=== PATIENT | male | born 1950 | race Caucasian/White ===

== ENCOUNTER 2016-10-26 10:11 | Inpatient (IN) | payer BC, OTHER ==
[2016-10-26] MEDS ORDERED: ONDANSETRON 4 MG/2 ML VIAL IVP STA (10:31)
[2016-10-26] MEDS ORDERED: MORPHINE SULFATE 4 MG/ML SYRINGE IV STA (10:31)
[2016-10-26] MEDS ORDERED: SODIUM CHLORIDE 0.9% 500 ML IV STA (10:31)
[2016-10-26] MEDS ORDERED: DILTIAZEM 5 MG/ML 25 ML VIAL IV STA (10:33)
[2016-10-26] MEDS: DILTIAZEM 5 MG/ML 5 ML VIAL IVP STA ×2 (10:34→10:51)
[2016-10-26] MEDS ORDERED: methylPREDNISolone SOD SUCCI 125 MG/2 ML VIAL IV STA (10:35)
[2016-10-26 11:00] LABS: Basophils % (A) 0 %; CH 33.1; CHCM 30.9; Eosinophils # (A) 0.1 k/uL (0-0.7); Eosinophils % (A) 1 %; HCT 48.6 % (39.0-53.0); HDW 2.35; HGB 15.3 gm/dL (13.0-17.5); Hypochromasia Slight; Luc # (Auto) 0.26; Luc % (Auto) 2; Lymphocytes # (A) 1.3 k/uL (1.0-4.8); Lymphocytes % (A) 11 %; MCHC 31.6 g/dL (31.0-37.0); MCV 107.7 fL (80.0-100.0); Macrocytosis Moderate; Mean Platelet Volume 7.2; Monocytes # (A) 1.2 k/uL (0-1.0); Monocytes % (A) 10 %; Neutrophils # (A) 9.7 k/uL (1.3-7.7); Neutrophils % (A) 77 %; RBC 4.52 m/uL (4.30-5.90); RDW 13.1 % (11.5-15.5); WBC 12.6 k/uL (3.8-10.6); WBC (Perox) 12.59
[2016-10-26] MEDS ORDERED: IPRATROPIUM 0.5 MG/2.5 ML NEBU INHALATION STA (11:01)
[2016-10-26 11:11] LABS: ALT 38 U/L (21-72); AST 20 U/L (17-59); Alkaline Phosphatase 102 U/L (38-126); Blood Urea Nitrogen 8 mg/dL (9-20); Chloride 92 mmol/L (98-107); Glucose 131 mg/dL (74-99); Non-African American GFR(MDRD) >60 (>60 ml/min/1.73 sqM); Potassium 4.5 mmol/L (3.5-5.1); Sodium 142 mmol/L (137-145); Total Bilirubin 0.9 mg/dL (0.2-1.3); Total Protein 6.4 g/dL (6.3-8.2)
[2016-10-26 11:17] LABS: Partial Thromboplastin Time 24.8 sec (22.0-30.0); Prothrombin Time 10.2 sec (9.0-12.0)
[2016-10-26 11:18] LABS: Anion Gap 9 mmol/L
[2016-10-26 11:20] LABS: Carbon Dioxide 41 mmol/L (22-30)
[2016-10-26] MEDS ORDERED: DILTIAZEM 125 MG in SODIUM CHLORIDE 0.9% 100 ML IV ONE (11:25)
[2016-10-26 11:44] LABS: Troponin I 0.061 ng/mL (0.000-0.034)
--- NOTE | 2016-10-26 11:47 | XR ---
EXAMINATION TYPE: XR chest 1V DATE OF EXAM: 10/26/2016 11:35 AM COMPARISON: 10/07/2013 HISTORY: 56-year-old male with chest pain and dyspnea TECHNIQUE: Single frontal view of the chest is obtained. FINDINGS: Heart is borderline enlarged. Mild diffuse interstitial prominence. No significant pleural effusion s een. No yasmeen consolidation. IMPRESSION: Borderline heart size and diffuse interstitial prominence. Correlate for possible etiologies includin g bronchitis, chronic asthma, or mild pulmonary vascular congestion.
[2016-10-26] MEDS ORDERED: SUCCINYLCHOLINE CHLORIDE VIAL 200 MG/10 ML VIAL IV STA (12:00)
[2016-10-26] MEDS ORDERED: ETOMIDATE 2 MG/ML 10 ML VIAL IVP STA (12:01)
[2016-10-26] MEDS ORDERED: CISATRACURIUM 2 MG/ML 5 ML VIAL IV ONE (12:04)
[2016-10-26] MEDS ORDERED: ACETAMINOPHEN TAB 325 MG TAB PO PRN (12:05)
[2016-10-26] MEDS ORDERED: NALOXONE 0.4 MG/ML 1 ML VIAL IV PRN ×2 (12:05→14:46)
--- NOTE | 2016-10-26 12:05 | ED ---
SOB HPI - General Chief Complaint: Shortness of Breath Stated Complaint: chest pain Time Seen by Provider: 10/26/16 10:14 Source: EMS Mode of arrival: EMS Limitations: no limitations - History of Present Illness Initial Comments: Has a history of severe COPD he is oxygen dependent oxygen was started few days ago and EMS noticed that his O2 sat was 83% at home has smoked for greater than 50 years, he is barely awake or any fall asleep while talking to us shortness of breath he is quite severe and he also EMS give us headaches of that his heart rate was 172 this morning when they picked him up and he had a chest pain chest pain was taking care for the morphine on arrival heart rate is still 172 and 7H A. fib/flutter, Cardizem mom 20 mg IV was given with the infusion 10 mg per hour infusion. Review of system is are not available from him at this point - Related Data Home Medications Medication Instructions Recorded Confirmed No Known Home Medications [No 10/26/16 10/26/16 Known Home Medications] Allergies Allergy/AdvReac Type Severity Reaction Status Date / Time No Known Allergies Allergy Verified 10/26/16 10:42 Review of Systems ROS Statement: Those systems with pertinent positive or pertinent negative responses have been documented in the HPI. ROS Other: All systems not noted in ROS Statement are negative. Past Medical History Past Medical History: COPD History of Any Multi-Drug Resistant Organisms: None Reported Additional Past Surgical History / Comment(s): right eye Past Psychological History: No Psychological Hx Reported Smoking Status: Current every day smoker Past Alcohol Use History: Occasional Past Drug Use History: None Reported General Exam - General Exam Comments Initial Comments: General: The patient is barely awake, is warranted sleep talking to you. Skin: Skin is warm and dry and no rashes or lesions are noted. Eye: Pupils are equal, round and reactive to light, extra-ocular movements are intact; there is normal conjunctiva bilaterally. Ears, nose, mouth and throat: There are moist mucous membranes and no oral lesions. Neck: The neck is supple, there is no tenderness Cardiovascular: There is a regular rate and rhythm. No murmur, rub or gallop is appreciated. Notice severe tachycardia Respiratory: To auscultation bilateral, exam compatible with a severe COPD Gastrointestinal: Soft, non-distended, non-tender abdomen without masses or organomegaly noted. There is no rebound or guarding present. Bowel sounds are unremarkable. Back: There is no tenderness to palpation in the midline. There is no obvious deformity. Musculoskeletal: Normal ROM, no tenderness, There is no pedal edema. There is no calf tenderness or swelling. No cords were appreciated. Neurological: CN II-XII intact, Cranial nerves III through XII are intact. There are no obvious motor or sensory deficits. Coordination appears grossly intact. Speech is normal. Psychiatric: Cooperative, appropriate mood & affect, normal judgment. Limitations: no limitations Course Vital Signs 10/26/16 10/26/16 10:15 10:31 Temperature 98.8 F Pulse Rate 170 H 170 H Respiratory 16 16 Rate Blood Pressure 126/83 128/82 O2 Sat by Pulse 83 L 92 L Oximetry EKG is atrial flutter at a rate of 172 FL interval is, QRS duration is 82 QT/ QTc is 288/487 of this EKG he reveal a very fast heart rate, didn't notice any ST elevation or ST depression in this EKG Medical Decision Making - Lab Data Result diagrams: 10/26/16 10:15 10/26/16 10:15 Lab Results 10/26/16 10/26/16 10/26/16 Range/Units 10:15 10:15 10:15 WBC 12.6 H (3.8-10.6) k/uL RBC 4.52 (4.30-5.90) m/uL Hgb 15.3 (13.0-17.5) gm/dL Hct 48.6 (39.0-53.0) % MCV 107.7 H (80.0-100.0) fL MCH 34.0 (25.0-35.0) pg MCHC 31.6 (31.0-37.0) g/dL RDW 13.1 (11.5-15.5) % Plt Count 269 (150-450) k/uL Neutrophils % 77 % Lymphocytes % 11 % Monocytes % 10 % Eosinophils % 1 % Basophils % 0 % Neutrophils # 9.7 H (1.3-7.7) k/uL Lymphocytes # 1.3 (1.0-4.8) k/uL Monocytes # 1.2 H (0-1.0) k/uL Eosinophils # 0.1 (0-0.7) k/uL Basophils # 0.0 (0-0.2) k/uL Hypochromasia Slight Macrocytosis Moderate PT (9.0-12.0) sec INR (<1.1) APTT (22.0-30.0) sec D-Dimer (<0.60) mg/L FEU Sodium 142 (137-145) mmol/L Potassium 4.5 (3.5-5.1) mmol/L Chloride 92 L (98-107) mmol/L Carbon Dioxide 41 H* (22-30) mmol/L Anion Gap 9 mmol/L BUN 8 L (9-20) mg/dL Creatinine 0.73 (0.66-1.25) mg/dL Est GFR (MDRD) Af Amer >60 (>60 ml/min/1.73 sqM) Est GFR (MDRD) Non-Af >60 (>60 ml/min/1.73 sqM) Glucose 131 H (74-99) mg/dL Calcium 9.0 (8.4-10.2) mg/dL Magnesium 2.0 (1.6-2.3) mg/dL Total Bilirubin 0.9 (0.2-1.3) mg/dL AST 20 (17-59) U/L ALT 38 (21-72) U/L Alkaline Phosphatase 102 (38-126) U/L Total Creatine Kinase 21 L (55-170) U/L CK-MB (CK-2) 1.0 (0.0-2.4) ng/mL CK-MB (CK-2) Rel Index 4.8 Troponin I 0.061 H* (0.000-0.034) ng/mL Total Protein 6.4 (6.3-8.2) g/dL Albumin 3.6 (3.5-5.0) g/dL 10/26/16 Range/Units 10:15 WBC (3.8-10.6) k/uL RBC (4.30-5.90) m/uL Hgb (13.0-17.5) gm/dL Hct (39.0-53.0) % MCV (80.0-100.0) fL MCH (25.0-35.0) pg MCHC (31.0-37.0) g/dL RDW (11.5-15.5) % Plt Count (150-450) k/uL Neutrophils % % Lymphocytes % % Monocytes % % Eosinophils % % Basophils % % Neutrophils # (1.3-7.7) k/uL Lymphocytes # (1.0-4.8) k/uL Monocytes # (0-1.0) k/uL Eosinophils # (0-0.7) k/uL Basophils # (0-0.2) k/uL Hypochromasia Macrocytosis PT 10.2 (9.0-12.0) sec INR 1.0 (<1.1) APTT 24.8 (22.0-30.0) sec D-Dimer 0.75 H (<0.60) mg/L FEU Sodium (137-145) mmol/L Potassium (3.5-5.1) mmol/L Chloride (98-107) mmol/L Carbon Dioxide (22-30) mmol/L Anion Gap mmol/L BUN (9-20) mg/dL Creatinine (0.66-1.25) mg/dL Est GFR (MDRD) Af Amer (>60 ml/min/1.73 sqM) Est GFR (MDRD) Non-Af (>60 ml/min/1.73 sqM) Glucose (74-99) mg/dL Calcium (8.4-10.2) mg/dL Magnesium (1.6-2.3) mg/dL Total Bilirubin (0.2-1.3) mg/dL AST (17-59) U/L ALT (21-72) U/L Alkaline Phosphatase (38-126) U/L Total Creatine Kinase (55-170) U/L CK-MB (CK-2) (0.0-2.4) ng/mL CK-MB (CK-2) Rel Index Troponin I (0.000-0.034) ng/mL Total Protein (6.3-8.2) g/dL Albumin (3.5-5.0) g/dL Critical Care Time Total Critical Care Time: 60 Critical Care Time: Patient came in with a heart rate of 170 at this point we gave him a Cardizem 20 mg IV bolus and 10 mg per hour infusion was started after that her ABGs were none ABGs revealed his pCO2 of 103 and he was barely awake and was crashing on the BiPAP RT recommended we do intubate him, after that intubation was done with the bilateral air exchange and Dr. Robina munguia, he happened to be in the ER patient was discussed with him he accepted the patient care in the ER and then her talk to Dr. Belle munguia he agreed and the same time orogastric tube was inserted, aspiration confirmed the tube in the right place and x-rays are ordered to confirm the T-wave in And orogastric tube confirmation Disposition Clinical Impression: Tachyarrhythmia, COPD, severe, Respiratory failure Disposition: ADMITTED IP TO THIS HOSP Condition: Poor
[2016-10-26] MEDS: PROPOFOL 500 MG in EMPTY BAG 1 BAG IV SCH ×4 (12:10→19:44)
--- NOTE | 2016-10-26 12:36 | XR ---
EXAMINATION TYPE: XR chest 1V portable DATE OF EXAM: 10/26/2016 12:19 PM Comparison: 10/26/2016, earlier today Clinical History: 66-year-old male status post intubation Findings: ET tube is satisfactory. NG tube courses below the diaphragm. The sidehole is just above the level of the GE junction. The tube could be advanced by approximately 7 cm further into the stomach. Left CVC tip at the lower SVC. Heart remains borderline enlarged. Diffuse interstitial prominence with somewhat more patchy left bas ilar opacity now noted. Impression: 1. Satisfactory ET tube. 2. NG tube sidehole just above the GE junction. The tube could be advanced by 7 cm further into the s tomach. 3. Borderline to mild cardiomegaly with continued diffuse interstitial prominence. Opacity is somewha t more confluent at the left base and could represent atelectasis or early developing pneumonia.
[2016-10-26 12:38] LABS: ABG HCO3 39 mmol/L (21-25); ABG PCO2 104 mmHg (35-45); ABG PO2 102 mmHg (83-108); ABG TCO2 42 mmol/L (19-24)
[2016-10-26 13:08] LABS: Glucose,Whole Blood 130 mg/dL (75-99)
[2016-10-26 13:18] LABS: Glucose,Whole Blood 132 mg/dL (75-99)
[2016-10-26] MEDS: SODIUM CHLORIDE 0.9% 1,000 ML IV STA ×2 (13:30→19:50)
--- NOTE | 2016-10-26 13:59 | P.CNPUL ---
History of Present Illness Consult date: 10/26/16 Reason for consult: COPD History of present illness: 66-year-old male patient with advanced COPD and history of chronic extensive smoking presented to the [facility] problem with respiratory failure. The patient apparently was doing poorly over the past few weeks. He was planning to see me in the office next week and meanwhile he was seeing his primary care physician. One point was noted to have a pulse ox of 83% and he was placed on home O2. The patient was getting progressively more short of breath and earlier this morning he was brought into the hospital through EMS for respiratory failure. In the ED he was briefly placed on a BiPAP which she failed and the patient was becoming more obtunded and agitated and short of breath and for that reason he was intubated and placed on a mechanical ventilator. Note that his blood gases while being on 100% nonrebreather showed a pH of 7.2 with a pCO2 of 104 and pO2 of 102. Note that at time of arrival the patient was also in a flutter with rapid ventricular response at the rate of 160. and he was started on Cardizem drip at the rate of 10 mg an hour after being given a bolus of 20 mg IV push. I was in the emergency department and I related this patient after he was intubated. Immediate was noted the patient's airway pressures were quite high while on the mechanical ventilator and his peak airway pressure was around 51 and static pressure of around 20. He was intubated by a #8 orotracheal tube. He was having copious loose after secretions and was requiring frequent suctioning. He was placed on assist control mode of ventilation at the rate of 20, tidal volume 400, peak flow 75, FiO2 of 100% and PEEP of 5. He is post intubation chest x-ray shows no evidence of any complications. No pneumonia. No pulmonary infiltrates. ET tube was in a good location. The patient was sedated with Diprivan. The patient was paralyzed with Nimbex. The patient was noted to be hypotensive postintubation he was given a bolus of 2 L of IV fluids which stabilized his blood pressure. He was started on bronchodilators and he was given [id number] bronchodilators with albuterol. The patient was also started on IV Solu-Medrol and he was given a bolus of 125 mg IV push in the emergency department. He'll be transferred to the intensive care unit. I was able to insert a triple-lumen catheter on this patient an outlying catheter is to follow. His white cell count is nonelevated. He is post intubation blood gases is still pending. No previous history of respiratory failure. No 70 charted asthma. No other medical history available at this point. He is obese. He is a smoker. He has features of obstructive sleep apnea clinically. From the cardiac standpoint, after arrival to the intensive care unit, the patient's rhythm converted into normal sinus rhythm. There was some early repolarization involving the inferior leads. No significant ST segment elevation. Post intubation blood gas showed a pH of 7.26 with a pCO2 of 72 and pO2 of 487. This was on 100% FiO2. FiO2 will be gradually weaned down to maintain a saturation above 92%. He did become hypotensive however and he is currently on 6 mics of levo fed for blood pressure support. Review of Systems ROS unobtainable: due to endotracheal tube Past Medical History Past Medical History: COPD Additional Past Medical History / Comment(s): Obesity, nicotine addiction, glucoma History of Any Multi-Drug Resistant Organisms: None Reported Additional Past Surgical History / Comment(s): right eye Past Psychological History: No Psychological Hx Reported Smoking Status: Current every day smoker Past Alcohol Use History: Occasional Past Drug Use History: None Reported Medications and Allergies Home Medications Medication Instructions Recorded Confirmed Type Latanoprost [Xalatan 0.005%] 1 drop BOTH EYES HS 10/26/16 10/26/16 History Allergies Allergy/AdvReac Type Severity Reaction Status Date / Time No Known Allergies Allergy Verified 10/26/16 10:42 Physical Exam Vitals: Vital Signs Temp Pulse Resp BP Pulse Ox 10/26/16 13:21 98 155 H 94/64 10/26/16 13:05 97 F L 152 H 20 70/50 100 10/26/16 12:45 152 H 20 70/50 98 10/26/16 12:15 152 H 82/52 95 Patient is intubated on a mechanical ventilator. The patient sedated with Diprivan ., Comfortable at this point and more synchronous with the mechanical ventilator.Head exam was generally normal. There was no scleral icterus or corneal arcus. Mucous membranes were moist. Neck is short and supple and there is no JVDs no goiter or neck masses. Patient has orogastric and orotracheal tube are both in good location. The patient also has a left subclavian triple- lumen catheter. Lung sounds are markedly diminished and there is elongation of the expiratory phase of breathing and diffuse extremity wheezes heard throughout the lung limon bilaterally.Cardiac exam revealed the PMI to be normally situated and sized. The rhythm was regular and no extrasystoles were noted during several minutes of auscultation. The cardiac rhythm is sinus and the patient is sinus. The first and second heart sounds were normal and physiologic splitting of the second heart sound was noted. There were no murmurs , rubs, clicks, or gallops.Abdominal exam revealed normal bowel sounds. The abdomen was soft, non-tender, and without masses, organomegaly, or appreciable enlargement of the abdominal aorta. My normal extremities. Neurologically the patient is sedated Results - Laboratory Findings CBC and BMP: 10/26/16 10:15 10/26/16 10:15 ABG ABG pH 7.20 (7.35-7.45) L* 10/26/16 10:38 ABG pCO2 104 mmHg (35-45) H* 10/26/16 10:38 ABG pO2 102 mmHg (83-108) 10/26/16 10:38 ABG O2 Saturation 95.0 % (94-97) 10/26/16 10:38 PT/INR, D-dimer PT 10.2 sec (9.0-12.0) 10/26/16 10:15 INR 1.0 (<1.1) 10/26/16 10:15 D-Dimer 0.75 mg/L FEU (<0.60) H 10/26/16 10:15 Abnormal lab findings: Abnormal Labs 10/26/16 10/26/16 13:04 13:15 POC Glucose (mg/dL) 130 H 132 H - Diagnostic Findings Chest x-ray: image reviewed Assessment and Plan Plan: Assessment 1 acute respiratory failure secondary to COPD exacerbation. The patient is in acute hypercapnic respiratory failure with significant respiratory acidosis the time of arrival, failed BiPAP therapy, subsequently intubated and placed on a mechanical ventilator. He remains quite bronchus spastic and wheezy with significant elevation of the peak airway pressures. He is currently sedated Diprivan. We will may continue paralysis of the patient is found to be asynchronous with a mechanical ventilator. 2 chronic hypoxic respiratory failure secondary to COPD. 3 shortness of breath and respiratory failure secondary to above 4 a flutter with rapid ventricular response, converted to normal sinus rhythm 5 minimal troponin leak with troponin level of 0.06 6 obesity 7 nicotine addiction Plan The patient will be kept sedated Diprivan and we'll may need to paralyze him and synchrony with mechanical ventilator becomes an issue. Currently is on 35 mics of the prevent for now. He is on assist control mode at the rate of 20, tidal volume of 400, PEEP of 5 and FiO2 is being gradually weaned down. The patient's blood gases were noted. We'll obtain sputum Gram stain and culture. We'll obtain blood culture. We'll put the patient on DuoNeb the restroom is every 4 hours [id number]. We'll put the patient Pulmicort and 5 mg overestimates twice a day. Empiric antibiotic coverage with Levaquin. IV Solu Medrol 60 every 6 hours. Continue fluid resuscitation with normal saline today to have 150 mL an hour and wean off the pressors as tolerated. Lovenox for DVT prophylaxis. Monitor cardiac enzymes. Echocardiogram in a.m. IV Protonix for GI prophylaxis. We'll continue to follow. Condition is critical. Triple- lumen catheter and arterial line were also inserted. We'll follow.
[2016-10-26 14:01] LABS: ABG PH 7.26 (7.35-7.45)
[2016-10-26 14:02] LABS: ABG Base Excess 4.2 mmol/L; ABG HCO3 31 mmol/L (21-25); ABG PCO2 72 mmHg (35-45); ABG PO2 >400 mmHg (83-108); ABG TCO2 33 mmol/L (19-24)
[2016-10-26] MEDS: CISATRACURIUM 200 MG in SODIUM CHLORIDE 0.9% 180 ML IV SCH (14:16)
[2016-10-26] MEDS ORDERED: SODIUM CHLORIDE 0.9% 500 ML IV ONE (15:00)
[2016-10-26 15:32] LABS: Creatine Kinase MB 0.9 ng/mL (0.0-2.4)
[2016-10-26] MEDS: PANTOPRAZOLE 40 MG/10 ML VIAL IVP SCH (15:32)
[2016-10-26] MEDS: LEVOFLOXACIN 500MG-D5W PMX 500 MG in DEXTROSE/WATER 1 100ML.BAG IVPB SCH (15:33)
[2016-10-26] MEDS: IPRATROPIUM-ALBUTEROL 3 ML NEB INHALATION PRN ×2 (15:37→19:34)
[2016-10-26 16:23] LABS: Appearance,Urine Cloudy (Clear); Bilirubin,Urine 1+ (Negative); Glucose,Urine (UA) Negative (Negative); Ketones,Urine Trace (Negative); Leukocyte Esterase,Urine Trace (Negative); Mucus,Urine Many /hpf; Nitrite,Urine Negative (Negative); Particle Count 17786; Protein,Urine 2+ (Negative); Specific Gravity,Urine 1.026 (1.001-1.035); UA Billing (MACRO vs. MICRO) MICRO; WBC,Urine 5 /hpf (0-5)
[2016-10-26] MEDS ORDERED: SODIUM CHLORIDE 0.9% 1,000 ML IV ONE (17:17)
--- NOTE | 2016-10-26 17:47 | HP ---
DATE OF ADMISSION: 10/26/2016 The patient is a 66 -year-old gentleman with history of extensive smoking history, came in with respiratory distress, found to have ( ). The patient's clinical status went down pretty quickly and the patient was subsequently intubated and the patient was quite a bit wheezing and bronchospastic. Patient went into atrial fibrillation and atrial flutter. The patient was subsequently started on Cardizem drip and Cardizem was ordered and patient apparently has very high peak airway pressures consistent with severe bronchospasm. Patient was started on assist-control ventilation with PEEP of 5, FiO2 of 100% to taper it down. Tidal volume of 2.5. Chest examination, chest CT did not show any pneumonic infiltrate. Patient apparently does not use any oxygen at home. Patient has an extensive smoking history. He does not take much of any medications at home. Patient when seen, pCO2 of 100 and ( ) sources secondary to chronic obstructive pulmonary disease exacerbation. Review of systems unable to obtain due to clinical condition. Past medical history is significant for obesity, ( ) COPD. Patient presently smokes. Alcohol abuse history and drug abuse history unknown at this time. FAMILY HISTORY: Unknown. Home medications include: Latanoprost. No known drug allergies. PHYSICAL EXAMINATION: VITAL SIGNS: Temperature is 97.0, pulse 98, respiratory rate of 20. The patient is breathing over the ventilator on assist control. ( ) 94/64. Saturating 100 percent on assist control ventilation. GENERAL: The patient is intubated, sedated, CHADS score of -2. RAST Score of -2. HEENT: Pupils are round and equally reacting to light. EOMI. No scleral icterus. No conjunctival pallor. Normocephalic, atraumatic. No pharyngeal erythema. No thyromegaly. CARDIOVASCULAR: S1 and S2 present. No murmurs, rubs, or gallops. ABDOMEN: Soft, nontender, nondistended, normoactive bowel sounds. No palpable organomegaly. MUSCULOSKELETAL: No joint swelling or deformity. EXTREMITIES: No cyanosis, clubbing, or pedal edema. NEUROLOGICAL: Does not appear to have any focal neurological deficits, RAST score of 02 as mentioned earlier. Although neurological exam is significantly limited because of his intubated state. LUNGS: Bilateral wheezing. Patient has mechanical ventilator sounds. Significant wheezing bilaterally. No crackles are appreciated. SKIN: No rashes. LABORATORY DATA: CBC, CMP are abnormal for elevated bicarbonate level of 41, leukocytosis. ASSESSMENT AND PLAN: 1. Respiratory failure requiring intubation. 2. The patient has acute hypercapnic respiratory failure and respiratory ( ) secondary to chronic obstructive pulmonary disease. The patient on systemic steroids and inhalation treatments. The patient to continue with ( ) bronchitis. 3. Respiratory acidosis. 4. Minimally elevated troponin secondary to hypoxemia. 5. Atrial fibrillation, rapid ventricular rate. Echocardiogram. Patient will be continued on Cardizem drip. 6. Nicotine dependence. 7. Obesity. MTDD
--- NOTE | 2016-10-26 18:00 | PCN ---
DATE OF PROCEDURE: Insertion of a triple-lumen catheter. PREOPERATIVE DIAGNOSIS: Respiratory failure. POSTOPERATIVE DIAGNOSIS: Respiratory failure. Site of insertion is left subclavian vein. TRIPLE LUMEN CATHETER PLACEMENT Indication: Hemodynamic monitoring/Intravenous access. A time-out was completed verifying correct patient, procedure, site, positioning, and implant(s) or special equipment if applicable. The patient was placed in a dependent position appropriate for triple lumen catheter placement based on the vein to be cannulated. The patient's left shoulder was prepped and draped in sterile fashion. 1% Lidocaine was used to anesthetize the surrounding skin area. A triple lumen 9F Cordis catheter was introduced into the subclavian vein using Seldinger technique. The catheter was threaded smoothly over the guide wire and appropriate blood return was obtained. Each lumen of the catheter was evacuated of air and flushed with sterile saline. The catheter was then sutured in place to the skin and a sterile dressing applied. Perfusion to the extremity distal to the point of catheter insertion was checked and found to be adequate.
--- NOTE | 2016-10-26 18:02 | PCN ---
DATE OF PROCEDURE: SECOND PROCEDURE: Insertion of Arterial line catheter. PREOPERATIVE DIAGNOSIS: Respiratory failure. POSTOPERATIVE DIAGNOSIS: Respiratory failure. Site of insertion: Left radial artery. ARTERIAL LINE PLACEMENT Indication: Hemodynamic monitoring. A time-out was completed verifying correct patient, procedure, site, positioning, and implant(s) or special equipment if applicable. Rojas's test was performed to ensure adequate perfusion. The patient's left wrist was prepped and draped in sterile fashion. 1% Lidocaine was used to anesthetize the area. An 18G Arrow arterial line was introduced into the radial artery. The catheter was threaded over the guide wire and the needle was removed with appropriate pulsatile blood return. Blood loss was minimal. The catheter was then sutured in place to the skin and a sterile dressing applied. Perfusion to the extremity distal to the point of catheter insertion was checked and found to be adequate. The patient tolerated the procedure well and there were no complications. No bedside complications or bleeding.
[2016-10-26] MEDS: methylPREDNISolone SOD SUCCI 125 MG/2 ML VIAL IV SCH (18:37)
[2016-10-26] MEDS: BUDESONIDE 0.5 MG/2 ML NEBU INHALATION SCH (19:34)
[2016-10-26] MEDS: NOREPINEPHRINE 16 MG in SODIUM CHLORIDE 0.9% 250 ML IV SCH (20:00)
[2016-10-26] MEDS ORDERED: FUROSEMIDE 10 MG/ML 4 ML VIAL IV STA (20:31)
[2016-10-26] MEDS: CHLORHEXIDINE GLUCONATE 15 ML CUP MUCOUS MEM SCH (20:41)
[2016-10-27] MEDS: methylPREDNISolone SOD SUCCI 125 MG/2 ML VIAL IV SCH ×4 (00:29→17:36)
[2016-10-27] MEDS: PROPOFOL 500 MG in EMPTY BAG 1 BAG IV SCH ×11 (01:45→22:11)
[2016-10-27 04:12] LABS: Basophils % (A) 0 %; CH 33.1; CHCM 30.9; Eosinophils # (A) 0.1 k/uL (0-0.7); Eosinophils % (A) 0 %; HDW 2.41; HGB 13.4 gm/dL (13.0-17.5); Hypochromasia Slight; Luc # (Auto) 0.06; Luc % (Auto) 1; Lymphocytes # (A) 0.6 k/uL (1.0-4.8); Lymphocytes % (A) 5 %; MCH 32.7 pg (25.0-35.0); MCHC 30.3 g/dL (31.0-37.0); MCV 107.7 fL (80.0-100.0); Macrocytosis Moderate; Mean Platelet Volume 7.9; Monocytes # (A) 0.6 k/uL (0-1.0); Monocytes % (A) 5 %; Neutrophils % (A) 89 %; RBC 4.09 m/uL (4.30-5.90); RDW 13.6 % (11.5-15.5); WBC 12.3 k/uL (3.8-10.6); WBC (Perox) 12.75
[2016-10-27 04:22] LABS: ALT 33 U/L (21-72); AST 13 U/L (17-59); Alkaline Phosphatase 71 U/L (38-126); Anion Gap 6 mmol/L; Blood Urea Nitrogen 18 mg/dL (9-20); Calcium 7.8 mg/dL (8.4-10.2); Carbon Dioxide 30 mmol/L (22-30); Chloride 104 mmol/L (98-107); Glucose 168 mg/dL (74-99); Magnesium 1.7 mg/dL (1.6-2.3); Non-African American GFR(MDRD) >60 (>60 ml/min/1.73 sqM); Potassium 5.2 mmol/L (3.5-5.1); Sodium 140 mmol/L (137-145); Total Bilirubin 0.6 mg/dL (0.2-1.3); Total Protein 4.9 g/dL (6.3-8.2)
[2016-10-27 05:06] LABS: ABG HCO3 29 mmol/L (21-25); ABG PCO2 57 mmHg (35-45); ABG PH 7.33 (7.35-7.45); ABG PO2 91 mmHg (83-108); ABG TCO2 31 mmol/L (19-24)
[2016-10-27 05:07] LABS: ABG Base Excess 3.6 mmol/L
[2016-10-27] MEDS ORDERED: Magnesium Replacement Protocol 1 EACH MISC MISCELLANE PRN (05:41)
[2016-10-27] MEDS: MAGNESIUM SULFATE-D5W PMX 1 GM in DEXTROSE/WATER 1 100ML.BAG IVPB SCH ×2 (05:57→07:38)
[2016-10-27] MEDS: IPRATROPIUM-ALBUTEROL 3 ML NEB INHALATION PRN ×2 (07:37→11:04)
[2016-10-27] MEDS: BUDESONIDE 0.5 MG/2 ML NEBU INHALATION SCH ×2 (07:38→20:00)
--- NOTE | 2016-10-27 07:38 | XR ---
EXAMINATION TYPE: XR chest 1V portable DATE OF EXAM: 10/27/2016 6:29 AM Comparison: 10/26/2016 Clinical History: 66 year-old male tube placement Findings: Heart remains borderline to mildly enlarged. Aorta within normal limits. Pulmonary vasculature and in terstitium remains prominent but improved from prior. The left basilar patchy opacity seen previously has also improved. Left subclavian CVC tip at the mid SVC. ET tube is satisfactory. NG tube courses below the diaphragm. NG tube sidehole is at the level of the GE junction now. Impression: Interstitial densities show interval improvement and the patchy left basilar infiltrate has largely r esolved. Possible improving CHF. There may be residual mild pulmonary vascular congestion.
[2016-10-27] MEDS: PANTOPRAZOLE 40 MG/10 ML VIAL IVP SCH (08:50)
[2016-10-27] MEDS: ENOXAPARIN 40 MG/0.4 ML SYRINGE SQ SCH (08:50)
[2016-10-27] MEDS: CHLORHEXIDINE GLUCONATE 15 ML CUP MUCOUS MEM SCH ×2 (08:50→20:15)
--- NOTE | 2016-10-27 13:41 | P.PN ---
Subjective 66-year-old male patient with advanced COPD and history of chronic extensive smoking presented to the [facility] problem with respiratory failure. The patient apparently was doing poorly over the past few weeks. He was planning to see me in the office next week and meanwhile he was seeing his primary care physician. One point was noted to have a pulse ox of 83% and he was placed on home O2. The patient was getting progressively more short of breath and earlier this morning he was brought into the hospital through EMS for respiratory failure. In the ED he was briefly placed on a BiPAP which she failed and the patient was becoming more obtunded and agitated and short of breath and for that reason he was intubated and placed on a mechanical ventilator. Note that his blood gases while being on 100% nonrebreather showed a pH of 7.2 with a pCO2 of 104 and pO2 of 102. Note that at time of arrival the patient was also in a flutter with rapid ventricular response at the rate of 160. and he was started on Cardizem drip at the rate of 10 mg an hour after being given a bolus of 20 mg IV push. I was in the emergency department and I related this patient after he was intubated. Immediate was noted the patient's airway pressures were quite high while on the mechanical ventilator and his peak airway pressure was around 51 and static pressure of around 20. He was intubated by a #8 orotracheal tube. He was having copious loose after secretions and was requiring frequent suctioning. He was placed on assist control mode of ventilation at the rate of 20, tidal volume 400, peak flow 75, FiO2 of 100% and PEEP of 5. He is post intubation chest x-ray shows no evidence of any complications. No pneumonia. No pulmonary infiltrates. ET tube was in a good location. The patient was sedated with Diprivan. The patient was paralyzed with Nimbex. The patient was noted to be hypotensive postintubation he was given a bolus of 2 L of IV fluids which stabilized his blood pressure. He was started on bronchodilators and he was given [id number] bronchodilators with albuterol. The patient was also started on IV Solu-Medrol and he was given a bolus of 125 mg IV push in the emergency department. He'll be transferred to the intensive care unit. I was able to insert a triple-lumen catheter on this patient an outlying catheter is to follow. His white cell count is nonelevated. He is post intubation blood gases is still pending. No previous history of respiratory failure. No 72 charted asthma. No other medical history available at this point. He is obese. He is a smoker. He has features of obstructive sleep apnea clinically. From the cardiac standpoint, after arrival to the intensive care unit, the patient's rhythm converted into normal sinus rhythm. There was some early repolarization involving the inferior leads. No significant ST segment elevation. Post intubation blood gas showed a pH of 7.26 with a pCO2 of 72 and pO2 of 487. This was on 100% FiO2. FiO2 will be gradually weaned down to maintain a saturation above 92%. He did become hypotensive however and he is currently on 6 mics of levo fed for blood pressure support. On 10/27/2016 the patient is being seen in follow-up. The patient remains intubated on mechanical ventilator. The patient remains sedated with Diprivan. No paralytics was utilized. The patient and assist control mode at the rate of 18, tidal volume 400, FiO2 of 50% and a PEEP of 5. Peak airway pressures around 34 with acetic acid pressure of 17. Also PEEP is at 6. The peak flow is at 70. The I:E ratio is 1 to 4. The chest x-ray remains essentially stable and the ET tube is in a good location. The blood gas showed a pH of 7.33 with a pCO2 of 57 and pO2 of 91. On examination the patient is still having significant amount of looseness for secretions being suctioned from the endotracheal tube. The patient is also having significant extremity wheezes on examination. Hemodynamically, the patient was on pressors overnight as the patient became hypotensive postintubation. He was started on fluids and norepinephrine infusion which was discontinued this morning. His cardiac rhythm remains sinus and there is no evidence of any throughout the rhythm for now. Cardiac enzymes were minimally elevated with troponins of 0.05 max. Objective - Vital Signs Vital signs: Vital Signs Temp 98.3 F 10/27/16 12:00 Pulse 82 10/27/16 12:00 Resp 18 10/27/16 12:00 BP 96/66 10/27/16 12:00 Pulse Ox 93 L 10/27/16 12:00 Intake & Output 10/26/16 10/27/16 10/27/16 18:59 06:59 18:59 Intake Total 1694.955 2558.809 1007.200 Output Total 115 1475 258 Balance 1687.750 -2.191 749.200 Weight 91.6 kg 94.2 kg Intake: IV 1700 1200 700 Sodium Chloride 0.9% 1, 200 1200 700 000 ml @ 100 mls/hr IV . Q10H STA Rx#:[id number] Sodium Chloride 0.9% 500 1500 ml @ 999 mls/hr IV .Q31M STA Rx#:[id number] Intake, IV Titration 102.750 272.809 307.200 Amount Diltiazem 125 mg In 24.333 Sodium Chloride 0.9% 100 ml @ 10 MG/HR 10 mls/hr IV .[id number] ONE Rx#: [id number] Magnesium Sulfate-D5w Pmx 100 200 1 gm In Dextrose/Water 1 100ml.bag @ 100 mls/hr IVPB Q1H WADE Rx#: [id number] Norepinephrine 16 mg In 72.809 Sodium Chloride 0.9% 250 ml @ Titrate IV .Q0M WADE Rx#:[id number] Propofol 500 mg In Empty 78.417 100.000 107.200 Bag 1 bag @ Titrate IV . Q0M WADE Rx#:[id number] Output: Urine 115 1475 258 Uretheral (Green) 50 Other: Voiding Method Indwelling Catheter Indwelling Catheter Indwelling Catheter # Bowel Movements 0 0 ABP, PAP, CO, CI - Last Documented Arterial Blood Pressure 112/59 - Exam Patient is intubated on a mechanical ventilator. The patient sedated with Diprivan ., Comfortable at this point and more synchronous with the mechanical ventilator.Head exam was generally normal. There was no scleral icterus or corneal arcus. Mucous membranes were moist. Neck is short and supple and there is no JVDs no goiter or neck masses. Patient has orogastric and orotracheal tube are both in good location. The patient also has a left subclavian triple- lumen catheter. Lung sounds are markedly diminished and there is elongation of the expiratory phase of breathing and diffuse extremity wheezes heard throughout the lung limon bilaterally.Cardiac exam revealed the PMI to be normally situated and sized. The rhythm was regular and no extrasystoles were noted during several minutes of auscultation. The cardiac rhythm is sinus and the patient is sinus. The first and second heart sounds were normal and physiologic splitting of the second heart sound was noted. There were no murmurs , rubs, clicks, or gallops.Abdominal exam revealed normal bowel sounds. The abdomen was soft, non-tender, and without masses, organomegaly, or appreciable enlargement of the abdominal aorta. My normal extremities. Neurologically the patient is sedated - Labs CBC & Chem 7: 10/27/16 04:00 10/27/16 04:00 Labs: Abnormal Lab Results - Last 24 Hours (Table) 10/26/16 10/26/16 10/26/16 Range/Units 13:45 14:00 14:00 WBC (3.8-10.6) k/uL RBC (4.30-5.90) m/uL MCV (80.0-100.0) fL MCHC (31.0-37.0) g/dL Neutrophils # (1.3-7.7) k/uL Lymphocytes # (1.0-4.8) k/uL ABG pH 7.26 L (7.35-7.45) ABG pCO2 72 H* (35-45) mmHg ABG pO2 >400 H (83-108) mmHg ABG HCO3 31 H (21-25) mmol/L ABG Total CO2 33 H (19-24) mmol/L ABG O2 Saturation 100.0 H (94-97) % Potassium (3.5-5.1) mmol/L Glucose (74-99) mg/dL Calcium (8.4-10.2) mg/dL AST (17-59) U/L Total Creatine Kinase 28 L (55-170) U/L Troponin I 0.050 H* (0.000-0.034) ng/mL Total Protein (6.3-8.2) g/dL Albumin (3.5-5.0) g/dL Urine Protein (Negative) Urine Ketones (Negative) Urine Bilirubin (Negative) Ur Leukocyte Esterase (Negative) Hyaline Casts (0-2) /lpf Urine Mucus (None) /hpf 10/26/16 10/27/16 10/27/16 Range/Units 15:00 04:00 04:00 WBC 12.3 H (3.8-10.6) k/uL RBC 4.09 L (4.30-5.90) m/uL MCV 107.7 H (80.0-100.0) fL MCHC 30.3 L (31.0-37.0) g/dL Neutrophils # 11.0 H (1.3-7.7) k/uL Lymphocytes # 0.6 L (1.0-4.8) k/uL ABG pH (7.35-7.45) ABG pCO2 (35-45) mmHg ABG pO2 (83-108) mmHg ABG HCO3 (21-25) mmol/L ABG Total CO2 (19-24) mmol/L ABG O2 Saturation (94-97) % Potassium 5.2 H (3.5-5.1) mmol/L Glucose 168 H (74-99) mg/dL Calcium 7.8 L (8.4-10.2) mg/dL AST 13 L (17-59) U/L Total Creatine Kinase (55-170) U/L Troponin I (0.000-0.034) ng/mL Total Protein 4.9 L (6.3-8.2) g/dL Albumin 2.8 L (3.5-5.0) g/dL Urine Protein 2+ H (Negative) Urine Ketones Trace H (Negative) Urine Bilirubin 1+ H (Negative) Ur Leukocyte Esterase Trace H (Negative) Hyaline Casts 13 H (0-2) /lpf Urine Mucus Many H (None) /hpf 10/27/16 Range/Units 04:43 WBC (3.8-10.6) k/uL RBC (4.30-5.90) m/uL MCV (80.0-100.0) fL MCHC (31.0-37.0) g/dL Neutrophils # (1.3-7.7) k/uL Lymphocytes # (1.0-4.8) k/uL ABG pH 7.33 L (7.35-7.45) ABG pCO2 57 H (35-45) mmHg ABG pO2 (83-108) mmHg ABG HCO3 29 H (21-25) mmol/L ABG Total CO2 31 H (19-24) mmol/L ABG O2 Saturation (94-97) % Potassium (3.5-5.1) mmol/L Glucose (74-99) mg/dL Calcium (8.4-10.2) mg/dL AST (17-59) U/L Total Creatine Kinase (55-170) U/L Troponin I (0.000-0.034) ng/mL Total Protein (6.3-8.2) g/dL Albumin (3.5-5.0) g/dL Urine Protein (Negative) Urine Ketones (Negative) Urine Bilirubin (Negative) Ur Leukocyte Esterase (Negative) Hyaline Casts (0-2) /lpf Urine Mucus (None) /hpf Microbiology - Last 24 Hours (Table) 10/26/16 13:10 Gram Stain - Preliminary Sputum Sputum Culture - Preliminary Assessment and Plan Plan: Assessment 1 acute respiratory failure secondary to COPD exacerbation. The patient is in acute hypercapnic respiratory failure with significant respiratory acidosis the time of arrival, failed BiPAP therapy, subsequently intubated and placed on a mechanical ventilator. He remains quite bronchus spastic and wheezy with significant elevation of the peak airway pressures. He is currently sedated Diprivan. We will may continue paralysis of the patient is found to be asynchronous with a mechanical ventilator. On 10/27/2016, the patient is still on a mechanical ventilator. Improved compared to yesterday. Less bronchospastic and wheezy at the peak airway pressures remains quite elevated and the patient is still bronchospastic and wheezy and overall not ready for weaning or extubation yet. Chest x-ray remains free of any pneumonias or infiltrates. Hemodynamically improved and the patient is on no pressors at this point and is maintaining his own cardiac rhythm and blood pressure. 2 chronic hypoxic respiratory failure secondary to COPD. 3 shortness of breath and respiratory failure secondary to above 4 a flutter with rapid ventricular response, converted to normal sinus rhythm 5 minimal troponin leak with troponin level of 0.06 6 obesity 7 nicotine addiction Plan Keep the patient sedated for another 24 hours. Continue the broncho dilators, and steroids and empiric antibiotic coverage. The sputum Gram stain and culture patient yielded no microbial growth yet. The patient will be started on tube feeds and the patient will be given vitamin 1.5 at 10 mL an hour without attempts to advance the diet. We'll give be having this patient is sedation holiday and will consider cutting down sedation as long as the patient remains cigarettes with a mechanical ventilator. Monitor hemodynamics. Monitor blood pressure. DVT and GI prophylaxis. We'll continue to follow. Family was updated on his condition and have elected discussion with his and daughter the bedside. There is a critically care evaluation that was done and 35 minutes.
[2016-10-27] MEDS ORDERED: DILTIAZEM 5 MG/ML 5 ML VIAL IVP STA (14:05)
[2016-10-27] MEDS: CISATRACURIUM 200 MG in SODIUM CHLORIDE 0.9% 180 ML IV SCH (14:14)
[2016-10-27] MEDS: NOREPINEPHRINE 16 MG in SODIUM CHLORIDE 0.9% 250 ML IV SCH (14:18)
[2016-10-27] MEDS: DILTIAZEM 125 MG in SODIUM CHLORIDE 0.9% 100 ML IV SCH (15:30)
--- NOTE | 2016-10-27 15:31 | PN ---
Patient is a 66-year-old with extensive smoking history, came in with COPD exacerbation and patient is intubated at this point of time. Patient's wheezing did improve and patient is on propofol sedation and levofloxacin. REVIEW OF SYSTEMS: Unable to obtain due to his clinical condition. Medications were reviewed. PHYSICAL EXAMINATION: VITAL SIGNS: Temperature 98.3, pulse of 82, respiratory rate of 18, blood pressure 96/66, saturating at 93% on ventilator. Please refer to district fire chief dictation for further details of vent management settings. GENERAL: Patient is intubated, sedated, calm. RADS score of -2. NEUROLOGICAL: RADS score of -2. PULMONARY EXAM: Patient wheezing and bronchospasm appears to have improved. HEENT: Pupils are round and equally reacting to light. EOMI. No scleral icterus. No conjunctival pallor. Normocephalic, atraumatic. No pharyngeal erythema. No thyromegaly. CARDIOVASCULAR: Patients is still in atrial fibrillation, S1 and S2 present. No murmurs, rubs, or gallops are appreciated. ABDOMEN: Soft, nontender, nondistended, normoactive bowel sounds. No palpable organomegaly. MUSCULOSKELETAL: No joint swelling or deformity. EXTREMITIES: No cyanosis, clubbing, or pedal edema. SKIN: No rashes. LABORATORY DATA: CMP and BMP are abnormal for mildly elevated potassium of 5.2, which will be monitored. Patient is not on any medication that increases his potassium. ASSESSMENT AND PLAN: 1. Acute respiratory failure requiring intubation which is again secondary to acute hypercapnic respiratory failure secondary to chronic obstructive pulmonary disease exacerbation. Continue with systemic steroids, inhalational treatments and albuterol. 2. Respiratory acidosis secondary to assessment #1. 3. Atrial flutter. Echocardiogram was ordered. Patient is off Cardizem drip. 4. Nicotine dependence. 5. Obesity. PLAN: Continue with ventilator support, wean off as tolerated. Antibiotics, systemic steroids, inhalational treatments.
[2016-10-27] MEDS: LEVOFLOXACIN 500MG-D5W PMX 500 MG in DEXTROSE/WATER 1 100ML.BAG IVPB SCH (16:15)
[2016-10-27] MEDS: IPRATROPIUM 0.5 MG/2.5 ML NEBU INHALATION SCH ×3 (16:22→23:28)
[2016-10-27] MEDS: LEVALBUTEROL NEB (CONC) 1.25 MG/0.5 ML AMP INHALATION SCH ×3 (16:22→23:28)
[2016-10-27] MEDS ORDERED: DEXTROSE 5% IN WATER 100 ML with AMIODARONE 150 MG IV ONE (17:27)
[2016-10-27] MEDS: AMIODARONE 450 MG in DEXTROSE 5% IN WATER 250 ML IV SCH ×2 (18:17)
[2016-10-28] MEDS: PROPOFOL 500 MG in EMPTY BAG 1 BAG IV SCH ×13 (00:15→23:52)
[2016-10-28 00:16] LABS: Glucose,Whole Blood 154 mg/dL (75-99)
[2016-10-28] MEDS: methylPREDNISolone SOD SUCCI 125 MG/2 ML VIAL IV SCH ×5 (00:32→23:52)
[2016-10-28] MEDS: AMIODARONE 450 MG in DEXTROSE 5% IN WATER 250 ML IV SCH ×4 (03:13→20:09)
[2016-10-28] MEDS: HYDROmorphone 1 MG/ML 1 ML SYRINGE IVP PRN ×2 (03:15→23:58)
[2016-10-28] MEDS: LEVALBUTEROL NEB (CONC) 1.25 MG/0.5 ML AMP INHALATION SCH ×6 (03:20→23:05)
[2016-10-28] MEDS: IPRATROPIUM 0.5 MG/2.5 ML NEBU INHALATION SCH ×6 (03:20→23:05)
[2016-10-28 05:11] LABS: ABG Base Excess 2.5 mmol/L; ABG HCO3 29 mmol/L (21-25); ABG PCO2 61 mmHg (35-45); ABG PH 7.29 (7.35-7.45); ABG PO2 107 mmHg (83-108); ABG TCO2 30 mmol/L (19-24)
[2016-10-28 05:14] LABS: Basophils % (A) 0 %; CHCM 30.9; Eosinophils # (A) 0.1 k/uL (0-0.7); Eosinophils % (A) 0 %; HCT 44.9 % (39.0-53.0); HDW 2.45; HGB 13.7 gm/dL (13.0-17.5); Hypochromasia Slight; Luc # (Auto) 0.09; Luc % (Auto) 1; Lymphocytes # (A) 0.6 k/uL (1.0-4.8); Lymphocytes % (A) 4 %; MCH 32.7 pg (25.0-35.0); MCHC 30.4 g/dL (31.0-37.0); MCV 107.4 fL (80.0-100.0); Macrocytosis Moderate; Mean Platelet Volume 7.9; Monocytes # (A) 0.9 k/uL (0-1.0); Monocytes % (A) 6 %; Neutrophils # (A) 12.2 k/uL (1.3-7.7); Neutrophils % (A) 88 %; RBC 4.18 m/uL (4.30-5.90); RDW 13.7 % (11.5-15.5); WBC 13.8 k/uL (3.8-10.6); WBC (Perox) 13.33
[2016-10-28 05:27] LABS: Anion Gap 8 mmol/L; Blood Urea Nitrogen 28 mg/dL (9-20); Calcium 8.5 mg/dL (8.4-10.2); Carbon Dioxide 30 mmol/L (22-30); Chloride 102 mmol/L (98-107); Glucose 171 mg/dL (74-99); Magnesium 2.4 mg/dL (1.6-2.3); Non-African American GFR(MDRD) >60 (>60 ml/min/1.73 sqM); Phosphorous 3.8 mg/dL (2.5-4.5); Potassium 5.1 mmol/L (3.5-5.1); Sodium 140 mmol/L (137-145)
[2016-10-28] MEDS: INSULIN LISPRO (humaLOG) 300 UNIT/3 ML VIAL SQ SCH ×4 (06:31→23:55)
[2016-10-28 06:35] LABS: Glucose,Whole Blood 152 mg/dL (75-99)
[2016-10-28] MEDS: BUDESONIDE 0.5 MG/2 ML NEBU INHALATION SCH ×2 (07:15→19:33)
--- NOTE | 2016-10-28 08:33 | XR ---
EXAMINATION TYPE: XR chest 1V portable DATE OF EXAM: 10/28/2016 7:01 AM COMPARISON: Prior chest x-ray 27 October 2016 HISTORY: Intubated TECHNIQUE: Single frontal view of the chest is obtained. FINDINGS: Endotracheal tube, NG tube are present and are overlying appropriate positions. Distal tip of the NG tube is thought to be within the stomach, side-port may be near the gastroesophageal junct ion. There is no pneumothorax or sizable effusion. Some minimal patchy basilar density is present. He art appears borderline enlarged although patient is rotated. Pulmonary vascularity and gorge not signi ficantly changed. Left subclavian central venous catheter is present, tip is overlying the superior v shawnee cava. There are overlying cardiac leads. IMPRESSION: There may be basilar atelectasis, airspace, correlate for edema or pneumonia.
[2016-10-28] MEDS: PANTOPRAZOLE 40 MG/10 ML VIAL IVP SCH (08:50)
[2016-10-28] MEDS: ENOXAPARIN 40 MG/0.4 ML SYRINGE SQ SCH (08:50)
[2016-10-28] MEDS: CHLORHEXIDINE GLUCONATE 15 ML CUP MUCOUS MEM SCH ×2 (08:50→20:16)
[2016-10-28 08:57] LABS: Hemoglobin A1C 6.1 % (4.2-6.1)
[2016-10-28] MEDS: NOREPINEPHRINE 16 MG in SODIUM CHLORIDE 0.9% 250 ML IV SCH (08:58)
--- NOTE | 2016-10-28 09:45 | ECHOF ---
Referral Reason:atrial flutter MEASUREMENTS -------- HEIGHT: 175.3 cm WEIGHT: 101.2 kg BP: 103/66 IVSd: 1.3 cm (0.6 - 1.1) LVIDd: 3.6 cm (3.9 - 5.3) LVPWd: 1.3 cm (0.6 - 1.1) IVSs: 1.9 cm LVIDs: 1.9 cm LVPWs: 1.5 cm Ao Diam: 3.5 cm (2.0 - 3.7) AV Cusp: 1.8 cm (1.5 - 2.6) LA Diam: 3.2 cm (2.7 - 3.8) RAP: 20.00 mmHg RVSP: 25.02 mmHg FINDINGS -------- The rhythm appears to be atrial flutter. This was a technically difficult study with suboptimal views. There is borderline concentric left ventricular hypertrophy. Overall left ventricular systolic function is moderately impaired with, an EF between 35 - 40 %. The right ventricle is normal in size and function. The right ventricle is mildly enlarged. The left atrium is normal in size. The right atrium is normal in size. 1.5mg of Definity was utilized for enhancement of images The aortic valve is trileaflet, and appears structurally normal. No aortic stenosis or regurgitation. There is trace mitral regurgitation. Trace tricuspid regurgitation present. The right ventricular systolic pressure, as measured by Doppler, is 25.02mmHg. The pulmonic valve was not well visualized. The aortic root size is normal. The pericardium is normal. CONCLUSIONS -------- 1. The rhythm appears to be atrial flutter. 2. There is trace mitral regurgitation. 3. Trace tricuspid regurgitation present. 4. The right ventricular systolic pressure, as measured by Doppler, is 25.02mmHg. 5. The pulmonic valve was not well visualized. 6. The aortic root size is normal. 7. The pericardium is normal. 8. This was a technically difficult study with suboptimal views. 9. There is borderline concentric left ventricular hypertrophy. 10. Overall left ventricular systolic function is moderately impaired with, an EF between 35 - 40 %. 11. The right ventricle is normal in size and function. 12. The left atrium is normal in size. 13. The right atrium is normal in size. 14. 1.5mg of Definity was utilized for enhancement of images 15. The aortic valve is trileaflet, and appears structurally normal. No aortic stenosis or regurgitation. CHEST [employer] SUPERVISOR: Natty Cardona RDCS
[2016-10-28] MEDS ORDERED: SODIUM CHLORIDE 0.9% 500 ML IV ONE (10:03)
--- NOTE | 2016-10-28 11:44 | P.CRDCN ---
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 The patient was found to be in acute respiratory distress. He is known to have severe COPD. Initially the patient was put on BiPAP without any improvement. Subsequently he started becoming agitated and more hypoxic. At that point he was intubated and placed on ventilator. We get involved in the care of the patient because he went into an atrial flutter with RVR. Subsequently the patient was started on amiodarone IV and converted into normal sinus mechanism. Beside that the cardiac enzymes were checked and came in to be slightly abnormal. The EKG showed only barely repolarization. The family states that the patient did not have any symptoms of chest pain or chest discomfort. Currently the patient is in normal sinus mechanism with a controlled heart rate. He is on amiodarone IV. Hemodynamically, he seems to be requiring small dose of Levophed. He is in process to be weaned from the Levophed. I will keep the patient on amiodarone IV at this point in view of hemodynamic instability. Once he is hemodynamically stable and I will consider start him on calcium channel tom. Also I am going to start the patient on anticoagulation using Xarelto. An echocardiogram is in process to be performed. Also I will start the patient on aspirin and a statin in view of the abnormal cardiac enzymes. Past Medical History Past Medical History: COPD Additional Past Medical History / Comment(s): Obesity, nicotine addiction, glucoma History of Any Multi-Drug Resistant Organisms: None Reported Additional Past Surgical History / Comment(s): right eye Past Anesthesia/Blood Transfusion Reactions: No Reported Reaction Past Psychological History: No Psychological Hx Reported Smoking Status: Current every day smoker Past Alcohol Use History: Occasional Past Drug Use History: None Reported Medications and Allergies Home Medications Medication Instructions Recorded Confirmed Type Latanoprost [Xalatan 0.005%] 1 drop BOTH EYES HS 10/26/16 10/26/16 History Allergies Allergy/AdvReac Type Severity Reaction Status Date / Time No Known Allergies Allergy Verified 10/26/16 10:42 Physical Exam Vitals: Vital Signs Temp Pulse Resp BP Pulse Ox 10/28/16 11:34 63 10/28/16 11:00 98.4 F 65 18 92/66 96 10/28/16 10:45 66 17 92/66 96 10/28/16 10:30 65 18 96 10/28/16 10:15 68 18 96 10/28/16 10:00 68 17 78/70 95 10/28/16 09:45 119 H 18 78/70 95 10/28/16 09:30 113 H 17 101/73 95 10/28/16 09:15 119 H 18 101/73 95 10/28/16 09:00 125 H 17 101/73 96 10/28/16 08:45 98.3 F 119 H 20 101/73 96 10/28/16 08:30 110 H 18 104/77 96 10/28/16 08:15 133 H 18 104/77 96 10/28/16 08:00 133 H 0 L 104/77 96 10/28/16 07:45 132 H 18 104/77 97 10/28/16 07:41 132 H 10/28/16 07:30 132 H 18 98 10/28/16 07:17 101 H 10/28/16 07:15 131 H 18 98 10/28/16 07:00 132 H 18 94/72 96 10/28/16 06:45 130 H 18 96 10/28/16 06:30 132 H 18 93/64 96 10/28/16 06:15 131 H 18 96 10/28/16 06:00 132 H 18 93/64 96 10/28/16 05:45 132 H 18 95 10/28/16 05:30 132 H 18 95 10/28/16 05:15 107 H 18 95 10/28/16 05:00 132 H 18 87/67 95 10/28/16 04:45 132 H 18 96 10/28/16 04:30 131 H 18 96 10/28/16 04:15 131 H 18 96 10/28/16 04:00 98.5 F 133 H 18 90/70 96 10/28/16 03:45 132 H 18 97 10/28/16 03:30 133 H 18 97 10/28/16 03:22 132 H 10/28/16 03:15 133 H 18 96 10/28/16 03:11 132 H 10/28/16 03:00 132 H 18 96 01/16/17 02:45 133 H 18 91/65 97 10/28/16 02:30 133 H 18 96 10/28/16 02:15 134 H 18 96 10/28/16 02:00 134 H 18 96 10/28/16 01:45 134 H 18 100/71 95 10/28/16 01:30 134 H 18 97/70 95 10/28/16 01:15 135 H 18 97/70 94 L 10/28/16 01:00 135 H 18 97/70 95 10/28/16 00:45 136 H 18 97/70 94 L 10/28/16 00:30 136 H 18 99/77 94 L 10/28/16 00:15 136 H 18 95 10/28/16 00:00 97.7 F 137 H 18 96 10/27/16 23:45 136 H 18 99/77 97 10/27/16 23:30 136 H 18 97 10/27/16 23:19 135 H 10/27/16 23:15 135 H 18 96/68 96 10/27/16 23:00 135 H 18 96/68 95 10/27/16 22:45 136 H 18 96/68 95 10/27/16 22:30 136 H 18 95 10/27/16 22:15 137 H 18 96 10/27/16 22:00 139 H 18 96 10/27/16 21:45 139 H 18 101/70 95 10/27/16 21:30 140 H 18 94 L 10/27/16 21:15 140 H 21 95 10/27/16 21:00 135 H 25 H 98 10/27/16 20:45 136 H 18 100/69 95 10/27/16 20:30 136 H 18 101/71 96 10/27/16 20:22 137 H 10/27/16 20:15 137 H 18 97 10/27/16 20:13 137 H 10/27/16 20:12 137 H 10/27/16 20:00 136 H 18 101/71 96 10/27/16 19:45 137 H 18 101/71 96 10/27/16 19:00 138 H 18 101/68 95 10/27/16 18:00 142 H 20 94 L 10/27/16 17:00 146 H 18 99/68 93 L 10/27/16 16:34 147 H 10/27/16 16:22 145 H 10/27/16 16:00 146 H 19 108/62 92 L 10/27/16 15:00 146 H 19 97/64 92 L 10/27/16 14:00 145 H 17 96/60 90 L 10/27/16 13:00 81 18 91/57 93 L 10/27/16 12:00 98.3 F 82 20 96/66 93 L Intake and Output 10/27/16 10/28/16 10/28/16 22:59 06:59 14:59 Intake Total 0143.365 2730.692 918.764 Output Total 280 279 255 Balance 289.009 1093.692 663.764 Intake: IV 800 800 100 Sodium Chloride 0.9% 1, 800 800 100 000 ml @ 100 mls/hr IV . Q10H [facility] Rx#:[id number] Intake, IV Titration 210.060 523.692 648.764 Amount Amiodarone 450 mg In 259 Dextrose 5% in Water 250 ml @ 1 MG/MIN 34.53 mls/ hr IV .Q7H31M [facility] Rx#: [id number] Norepinephrine 16 mg In 67.372 17.824 Sodium Chloride 0.9% 250 ml @ Titrate IV .Q0M [facility] Rx#:[id number] Propofol 500 mg In Empty 210.060 197.32 130.94 Bag 1 bag @ Titrate IV . Q0M [facility] Rx#:[id number] Sodium Chloride 0.9% 500 500 ml @ 999 mls/hr IV .Q31M [facility] Rx#:[id number] Tube Feeding 40 90 80 Other 30 60 90 Output: Urine 280 279 255 Other: Voiding Method Indwelling Catheter Indwelling Catheter # Bowel Movements 0 0 0 Weight 101.2 kg 101.2 kg Patient Weight 10/29/16 06:59 Weight 101.2 kg ABP, PAP, CO, CI - Last 8 Hours Arterial Blood Pressure 99/55 Arterial Blood Pressure 98/54 Arterial Blood Pressure 99/54 Arterial Blood Pressure 100/54 Arterial Blood Pressure 100/52 Arterial Blood Pressure 102/59 Arterial Blood Pressure 107/66 Arterial Blood Pressure 104/64 Arterial Blood Pressure 110/67 Arterial Blood Pressure 104/62 Arterial Blood Pressure 96/57 Arterial Blood Pressure 108/66 Arterial Blood Pressure 102/62 Arterial Blood Pressure 99/61 Arterial Blood Pressure 103/61 Arterial Blood Pressure 104/65 Arterial Blood Pressure 103/65 Arterial Blood Pressure 106/67 Arterial Blood Pressure 101/66 Arterial Blood Pressure 103/68 Arterial Blood Pressure 102/67 Arterial Blood Pressure 97/63 Arterial Blood Pressure 101/65 Arterial Blood Pressure 95/62 Arterial Blood Pressure 101/65 Arterial Blood Pressure 103/68 Arterial Blood Pressure 103/69 Arterial Blood Pressure 103/69 Arterial Blood Pressure 98/66 Arterial Blood Pressure 99/65 - Constitutional General appearance: no acute distress - Respiratory Respiratory: bilateral: wheezing - Cardiovascular Rhythm: regular Heart sounds: normal: S1, S2 Results 10/28/16 05:01 10/28/16 05:01 CBC 10/28/16 Range/Units 05:01 WBC 13.8 H (3.8-10.6) k/uL RBC 4.18 L (4.30-5.90) m/uL Hgb 13.7 (13.0-17.5) gm/dL Hct 44.9 (39.0-53.0) % Plt Count 309 (150-450) k/uL Comprehensive Metabolic Panel 10/28/16 Range/Units 05:01 Sodium 140 (137-145) mmol/L Potassium 5.1 (3.5-5.1) mmol/L Chloride 102 (98-107) mmol/L Carbon Dioxide 30 (22-30) mmol/L BUN 28 H (9-20) mg/dL Creatinine 0.99 (0.66-1.25) mg/dL Glucose 171 H (74-99) mg/dL Calcium 8.5 (8.4-10.2) mg/dL Current Medications Generic Name Dose Route Start Last Admin Trade Name Freq PRN Reason Stop Dose Admin Acetaminophen 650 mg 10/26/16 12:05 10/27/16 23:56 Tylenol Tab PO 650 mg Q4HR PRN Administration Fever Budesonide 0.5 mg 10/26/16 20:00 10/28/16 07:15 Pulmicort INHALATION 0.5 mg RT-BID [facility] Administration Chlorhexidine Gluconate 15 ml 10/26/16 21:00 10/28/16 08:50 Peridex MUCOUS MEM 15 ml BID WADE Administration Hydromorphone HCl 1 mg 10/28/16 02:42 10/28/16 03:15 Dilaudid IVP 1 mg Q2H PRN Administration Pain Norepinephrine Bitartrate 16 266 mls @ 0 mls/hr 10/26/16 13:15 10/28/16 10:42 mg/ Sodium Chloride IV 5 mcg/min .Q0M [facility] 4.98 mls/hr Protocol Titration Titrate Cisatracurium Besylate 200 mg/ 200 mls @ 5.49 mls/hr 10/26/16 13:30 10/27/16 14:14 Sodium Chloride IV Not Given .Q24H [facility] Protocol 1 MCG/KG/MIN Propofol 500 mg/ IV Solution 50 mls @ 0 mls/hr 10/26/16 13:15 10/28/16 11:07 IV 27.3 ml/hr .Q0M [facility] 27.3 mls/hr Protocol Administration Titrate Levofloxacin 500 mg/ IV 100 mls @ 100 mls/hr 10/26/16 15:00 10/27/16 16:15 Solution IVPB 100 mls/hr Q24H [facility] Administration Diltiazem HCl 125 mg/ Sodium 125 mls @ 10 mls/hr 10/27/16 15:45 10/27/16 15: 30 Chloride IV 10 mg/hr .[id number] [facility] 10 mls/hr 10 MG/HR Administration Amiodarone HCl 450 mg/ 259 mls @ 34.53 mls/hr 10/27/16 17:30 10/28/16 03:13 Dextrose/Water IV 10/28/16 17:27 0.5 mg/min .Q7H31M [facility] 17.26 mls/hr Protocol Administration 1 MG/MIN Insulin Human Lispro 0 unit 10/28/16 06:00 10/28/16 06:31 Humalog SQ 1 unit Q6H [facility] Administration Protocol Ipratropium [place] 0.5 mg 10/27/16 16:00 10/28/16 11:33 Atrovent Nebulized INHALATION 0.5 mg RT-Q4H [facility] Administration Latanoprost 1 drops 10/28/16 21:00 Xalatan 0.005% BOTH EYES HS [facility] Levalbuterol HCl 1.25 mg 10/27/16 16:00 10/28/16 11:33 Xopenex Nebulized (Conc) INHALATION 1.25 mg RT-Q4H [facility] Administration Methylprednisolone Sodium Succinate 60 mg 10/26/16 18:00 10/28/16 06:29 Solu-Medrol IV 60 mg Q6HR [facility] Administration Miscellaneous Information 1 each 10/27/16 05:41 Magnesium Per Protocol MISCELLANE DAILY PRN Per Protocol Protocol Naloxone HCl 0.2 mg 10/26/16 14:46 Narcan IV Q2M PRN Opioid Reversal Pantoprazole Sodium 40 mg 10/26/16 14:00 10/28/16 08:50 Protonix IVP 40 mg DAILY [facility] Administration Rivaroxaban 20 mg 10/28/16 17:30 Xarelto PO W/SUPPER [facility] Intake and Output 10/27/16 10/28/16 10/28/16 22:59 06:59 14:59 Intake Total 0736.734 7545.692 918.764 Output Total 280 279 255 Balance 568.131 8577.692 663.764 Intake: IV 800 800 100 Sodium Chloride 0.9% 1, 800 800 100 000 ml @ 100 mls/hr IV . Q10H [facility] Rx#:[id number] Intake, IV Titration 210.060 523.692 648.764 Amount Amiodarone 450 mg In 259 Dextrose 5% in Water 250 ml @ 1 MG/MIN 34.53 mls/ hr IV .Q7H31M [facility] Rx#: [id number] Norepinephrine 16 mg In 67.372 17.824 Sodium Chloride 0.9% 250 ml @ Titrate IV .Q0M [facility] Rx#:[id number] Propofol 500 mg In Empty 210.060 197.32 130.94 Bag 1 bag @ Titrate IV . Q0M [facility] Rx#:[id number] Sodium Chloride 0.9% 500 500 ml @ 999 mls/hr IV .Q31M [facility] Rx#:[id number] Tube Feeding 40 90 80 Other 30 60 90 Output: Urine 280 279 255 Other: Voiding Method Indwelling Catheter Indwelling Catheter # Bowel Movements 0 0 0 Weight 101.2 kg 101.2 kg Patient Weight 10/29/16 06:59 Weight 101.2 kg 10/28/16 05:01 10/28/16 05:01 Assessment and Plan Plan: Assessment #1 paroxysmal atrial fibrillation/atrial flutter #2 acute respiratory failure #3 COPD exacerbation #4 mildly abnormal cardiac enzymes Plan #1 continue amiodarone IV #2 start anticoagulation #3 follow-up on the echocardiogram #4 start the patient on aspirin and statin #5 follow-up with the patient
[2016-10-28 12:35] LABS: Glucose,Whole Blood 167 mg/dL (75-99)
[2016-10-28] MEDS: CISATRACURIUM 200 MG in SODIUM CHLORIDE 0.9% 180 ML IV SCH (13:37)
--- NOTE | 2016-10-28 14:21 | P.PN ---
Subjective Principal diagnosis: Acute hypoxic and hypercapnic respiratory failure secondary to acute COPD exacerbation. 66-year-old male patient with advanced COPD and history of chronic extensive smoking presented to the [facility] problem with respiratory failure. The patient apparently was doing poorly over the past few weeks. He was planning to see me in the office next week and meanwhile he was seeing his primary care physician. One point was noted to have a pulse ox of 83% and he was placed on home O2. The patient was getting progressively more short of breath and earlier this morning he was brought into the hospital through EMS for respiratory failure. In the ED he was briefly placed on a BiPAP which she failed and the patient was becoming more obtunded and agitated and short of breath and for that reason he was intubated and placed on a mechanical ventilator. Note that his blood gases while being on 100% nonrebreather showed a pH of 7.2 with a pCO2 of 104 and pO2 of 102. Note that at time of arrival the patient was also in a flutter with rapid ventricular response at the rate of 160. and he was started on Cardizem drip at the rate of 10 mg an hour after being given a bolus of 20 mg IV push. On 10/27/2016 the patient is being seen in follow-up. The patient remains intubated on mechanical ventilator. The patient remains sedated with Diprivan. No paralytics was utilized. The patient and assist control mode at the rate of 18, tidal volume 400, FiO2 of 50% and a PEEP of 5. Peak airway pressures around 34 with left toe pressure of 17. Also PEEP is at 6. The peak flow is at 70. The I:E ratio is 1 to 4. The chest x-ray remains essentially stable and the ET tube is in a good location. The blood gas showed a pH of 7.33 with a pCO2 of 57 and pO2 of 91. On examination the patient is still having significant amount of looseness for secretions being suctioned from the endotracheal tube. The patient is also having significant extremity wheezes on examination. Hemodynamically, the patient was on pressors overnight as the patient became hypotensive postintubation. He was started on fluids and norepinephrine infusion which was discontinued this morning. His cardiac rhythm remains sinus and there is no evidence of any throughout the rhythm for now. Cardiac enzymes were minimally elevated with troponins of 0.05 max. Patient was reevaluated today on 10/28/2016, he remains on mechanical ventilation , however I was able to cut down his FiO2 to 45%, the rest of the ventilator settings remained the same. His peak airway pressure is unchanged, and his plateau pressure is also unchanged. Patient remains sedated on propofol, did not require any muscle paralytic agents. Chest x-ray however is showing evidence of by basilar pneumonia, possibility of slight interstitial edema is not entirely ruled out. However I believe this is mostly pneumonia involving the lower lobes, most likely hospital acquired pneumonia. Could even be related to aspiration. Objective - Vital Signs Vital signs: Vital Signs Temp 98.4 F 10/28/16 11:00 Pulse 69 10/28/16 13:30 Resp 17 10/28/16 13:30 BP 102/69 10/28/16 13:30 Pulse Ox 96 10/28/16 13:30 Intake & Output 10/27/16 10/28/16 10/28/16 18:59 06:59 18:59 Intake Total 3670.014 9542.807 1124.206 Output Total 433 424 345 Balance 2301.027 0284.807 779.206 Weight 101.2 kg 101.2 kg Intake: IV 1200 1200 100 Sodium Chloride 0.9% 1, 1200 1200 100 000 ml @ 100 mls/hr IV . Q10H [facility] Rx#:[id number] Intake, IV Titration 453.863 647.807 714.206 Amount Amiodarone 450 mg In 259 Dextrose 5% in Water 250 ml @ 1 MG/MIN 34.53 mls/ hr IV .Q7H31M [facility] Rx#: [id number] Magnesium Sulfate-D5w Pmx 200 1 gm In Dextrose/Water 1 100ml.bag @ 100 mls/hr IVPB Q1H [facility] Rx#: [id number] Norepinephrine 16 mg In 41.998 67.372 33.266 Sodium Chloride 0.9% 250 ml @ Titrate IV .Q0M [facility] Rx#:[id number] Propofol 500 mg In Empty 211.865 321.435 180.94 Bag 1 bag @ Titrate IV . Q0M [facility] Rx#:[id number] Sodium Chloride 0.9% 500 500 ml @ 999 mls/hr IV .Q31M [facility] Rx#:[id number] Tube Feeding 10 120 160 Other 90 150 Output: Urine 433 424 345 Other: Voiding Method Indwelling Catheter Indwelling Catheter Indwelling Catheter # Bowel Movements 0 0 0 ABP, PAP, CO, CI - Last Documented Arterial Blood Pressure 126/64 - Exam Physical Exam: Revealed a 66-year-old obese, on mechanical ventilation. Endotracheal tube is intact. HEENT:[Neck is supple.] [No neck masses.] [No thyromegaly.] [No JVD.] Chest: [Crackles and rhonchi are noted at the bases. Cardiac Exam: Irregular irregular rhythm. [Normal S1 and S2, no S3 gallop, 2/6 systolic murmur throughout the precordium. Abdomen: [Soft, nontender, no megaly, no rebound, no guarding, normal bowel sounds.] Extremities: [No clubbing, trace of bipedal edema, no cyanosis.] Neurological Exam: Was not assessed, patient is sedated on propofol. - Labs CBC & Chem 7: 10/28/16 05:01 10/28/16 05:01 Labs: Abnormal Lab Results - Last 24 Hours (Table) 10/28/16 10/28/16 10/28/16 Range/Units 00:00 04:51 05:01 WBC 13.8 H (3.8-10.6) k/uL RBC 4.18 L (4.30-5.90) m/uL MCV 107.4 H (80.0-100.0) fL MCHC 30.4 L (31.0-37.0) g/dL Neutrophils # 12.2 H (1.3-7.7) k/uL Lymphocytes # 0.6 L (1.0-4.8) k/uL ABG pH 7.29 L (7.35-7.45) ABG pCO2 61 H (35-45) mmHg ABG HCO3 29 H (21-25) mmol/L ABG Total CO2 30 H (19-24) mmol/L BUN (9-20) mg/dL Glucose (74-99) mg/dL POC Glucose (mg/dL) 154 H (75-99) mg/dL Magnesium (1.6-2.3) mg/dL 10/28/16 10/28/16 10/28/16 Range/Units 05:01 06:31 12:27 WBC (3.8-10.6) k/uL RBC (4.30-5.90) m/uL MCV (80.0-100.0) fL MCHC (31.0-37.0) g/dL Neutrophils # (1.3-7.7) k/uL Lymphocytes # (1.0-4.8) k/uL ABG pH (7.35-7.45) ABG pCO2 (35-45) mmHg ABG HCO3 (21-25) mmol/L ABG Total CO2 (19-24) mmol/L BUN 28 H (9-20) mg/dL Glucose 171 H (74-99) mg/dL POC Glucose (mg/dL) 152 H 167 H (75-99) mg/dL Magnesium 2.4 H (1.6-2.3) mg/dL Microbiology - Last 24 Hours (Table) 10/26/16 13:10 Gram Stain - Final Sputum Sputum Culture - Final Streptococcus pneumoniae Assessment and Plan Plan: 1 acute hypercapnic respiratory failure secondary to COPD exacerbation. The patient is in acute hypercapnic respiratory failure with significant respiratory acidosis the time of arrival, failed BiPAP therapy, subsequently intubated and placed on a mechanical ventilator. He remains quite bronchospastic and wheezy with significant elevation of the peak airway pressures. He is currently sedated Diprivan. 2 bibasilar airspace disease, consistent with pneumonia, this could very well be aspiration in nature or could be hospital acquired pneumonia. Possibility of mild interstitial edema is not entirely ruled out. 3 shortness of breath and respiratory failure secondary to above 4 a flutter with rapid ventricular response, patient remains on amiodarone, and I initiated a consultation to cardiology. 5 minimal troponin leak with troponin level of 0.06 6 obesity 7 nicotine addiction 8 history of severe chronic hypoxic respiratory failure secondary to COPD. 9 abnormal echocardiogram suggestive of LV dysfunction and cardiomyopathy. Recommendation: Continue present treatment plan including bronchodilators, empiric antibiotics coverage, sputum is positive for Streptococcus pneumonia, his initial chest x-ray on admission was negative, but follow-up chest x-ray is showing pneumonia. Has we'll continue Levaquin empirically, continue GI and DVT prophylaxis, continue treatment of his atrial fibrillation/flutter continue nutritional support, and we will follow closely. I discussed his condition with all his family members at bedside, critical care time is 45 minutes. Patient is clearly not ready for any weaning at this point. Time with Patient: Greater than 30
--- NOTE | 2016-10-28 15:10 | PN ---
Patient is a 66-year-old admitted with COPD exacerbation. Patient's echocardiogram showed depressed ejection fraction of around 35%. Patient is on amiodarone at this point. Blood pressure is low. Patient does have pulmonary edema because of the low blood pressure. Patient did get a bolus of IV fluids which we need to get rid of, once his blood pressure stays stable. Patient continues to be on Levophed drip. Patient is on propofol sedation at this point of time. Patient converted to sinus rhythm today. REVIEW OF SYSTEMS: Unable to obtain due to clinical condition. Medications were reviewed. PHYSICAL EXAMINATION: VITAL SIGNS: Temperature 98.4, pulse of 69, respiratory rate of 17, blood pressure is 102/69, saturating at 96% on mechanical ventilator. Please refer to hardwood faller dictation for vent settings. GENERAL EXAMINATION: patient is intubated, sedated calm, RASS score of -2. HEENT: Pupils are round and equally reacting to light. EOMI. No scleral icterus. No conjunctival pallor. Normocephalic, atraumatic. No pharyngeal erythema. No thyromegaly. CARDIOVASCULAR: S1 and S2 present. No murmurs, rubs, or gallops. PULMONARY: Chest is clear to auscultation, no wheezing or crackles. ABDOMEN: Soft, nontender, nondistended, normoactive bowel sounds. No palpable organomegaly. MUSCULOSKELETAL: No joint swelling or deformity. EXTREMITIES: No cyanosis, clubbing, or pedal edema. SKIN: No rashes. NEUROLOGICAL: RASS score of -2. LABORATORY DATA: CBC, CMP are abnormal for elevated WBC count of 13,800, reviewed ABG's. ASSESSMENT AND PLAN: 1. Acute respiratory failure requiring intubation secondary to severe chronic obstructive pulmonary disease exacerbation. 2. Shock secondary to what appears to be cardiogenic along with mild hypovolemic shock and sepsis. Patient received IV fluids and patient is on Levophed drip and patient does have pulmonary edema as per the chest x-ray. 3. Congestive heart failure, possible chronic systolic dysfunction, etiology of systolic dysfunction is unknown ejection. Ejection fraction of around 35%. Cardiology evaluated the patient. 4. Atrial fibrillation, patient converted to sinus rhythm at this point of time. Patient will be started on Eliquis. 5. Nicotine dependence. 6. Obesity. PLAN: Continue with systemic steroids, inhalational treatments, antibiotics in the form of levofloxacin, wean off ventilator, wean off Levothroid as tolerated. Once his hemodynamics stabilize, patient probably at that time we can get rid of some of the fluids that is for pulmonary edema with Lasix slowly. MTDD
[2016-10-28] MEDS: LEVOFLOXACIN 500MG-D5W PMX 500 MG in DEXTROSE/WATER 1 100ML.BAG IVPB SCH (15:19)
[2016-10-28] MEDS: RIVAROXABAN 10 MG TAB PO SCH (16:01)
[2016-10-28] MEDS: DILTIAZEM 125 MG in SODIUM CHLORIDE 0.9% 100 ML IV SCH (17:04)
[2016-10-28 17:09] LABS: Glucose,Whole Blood 160 mg/dL (75-99)
[2016-10-28] MEDS: LATANOPROST 0.005% OPHTH DROPS 2.5 ML BTL BOTH EYES SCH (20:16)
[2016-10-28 23:58] LABS: Glucose,Whole Blood 133 mg/dL (75-99)
[2016-10-29] MEDS: PROPOFOL 500 MG in EMPTY BAG 1 BAG IV SCH ×11 (01:11→22:55)
[2016-10-29] MEDS: IPRATROPIUM 0.5 MG/2.5 ML NEBU INHALATION SCH ×6 (03:25→23:14)
[2016-10-29] MEDS: LEVALBUTEROL NEB (CONC) 1.25 MG/0.5 ML AMP INHALATION SCH ×6 (03:25→23:14)
[2016-10-29 05:33] LABS: Basophils % (A) 0 %; CH 32.9; CHCM 30.8; Eosinophils % (A) 0 %; HCT 40.9 % (39.0-53.0); HGB 12.6 gm/dL (13.0-17.5); Hypochromasia Slight; Luc # (Auto) 0.07; Luc % (Auto) 1; Lymphocytes # (A) 0.4 k/uL (1.0-4.8); Lymphocytes % (A) 5 %; MCH 33.2 pg (25.0-35.0); MCHC 30.9 g/dL (31.0-37.0); MCV 107.4 fL (80.0-100.0); Macrocytosis Moderate; Mean Platelet Volume 6.9; Monocytes # (A) 0.5 k/uL (0-1.0); Monocytes % (A) 6 %; Neutrophils # (A) 7.8 k/uL (1.3-7.7); Neutrophils % (A) 88 %; RBC 3.81 m/uL (4.30-5.90); RDW 13.5 % (11.5-15.5); WBC 8.8 k/uL (3.8-10.6)
[2016-10-29 05:42] LABS: Anion Gap 6 mmol/L; Blood Urea Nitrogen 33 mg/dL (9-20); Calcium 8.4 mg/dL (8.4-10.2); Carbon Dioxide 29 mmol/L (22-30); Chloride 105 mmol/L (98-107); Glucose 145 mg/dL (74-99); Magnesium 2.5 mg/dL (1.6-2.3); Non-African American GFR(MDRD) >60 (>60 ml/min/1.73 sqM); Phosphorous 3.9 mg/dL (2.5-4.5); Potassium 5.4 mmol/L (3.5-5.1); Sodium 140 mmol/L (137-145)
[2016-10-29 06:47] LABS: Glucose,Whole Blood 141 mg/dL (75-99)
[2016-10-29] MEDS: INSULIN LISPRO (humaLOG) 300 UNIT/3 ML VIAL SQ SCH ×3 (06:59→17:44)
[2016-10-29] MEDS: methylPREDNISolone SOD SUCCI 125 MG/2 ML VIAL IV SCH ×3 (07:00→17:44)
[2016-10-29] MEDS: BUDESONIDE 0.5 MG/2 ML NEBU INHALATION SCH ×2 (07:31→19:24)
[2016-10-29] MEDS: CHLORHEXIDINE GLUCONATE 15 ML CUP MUCOUS MEM SCH ×2 (07:44→20:04)
[2016-10-29] MEDS: PANTOPRAZOLE 40 MG/10 ML VIAL IVP SCH (07:44)
--- NOTE | 2016-10-29 08:16 | XR ---
EXAMINATION TYPE: XR chest 1V portable DATE OF EXAM: 10/29/2016 6:48 AM COMPARISON: Prior chest x-ray 28 October 2016 HISTORY: Intubated TECHNIQUE: Single frontal view of the chest is obtained. FINDINGS: Endotracheal tube is superimposed over the tracheal air column. NG tube is in place, dista l tip not included on the exam. Left subclavian central venous catheter is stable, distal tip of the superior vena cava. There is no pneumothorax. There is interval obscuration of the right hemidiaphrag m. There are overlying cardiac leads. The heart remains enlarged. Interstitium is increased, mixed ai rspace disease is present. IMPRESSION: Correlate for congestive heart failure with basilar effusions. Follow-up is recommended.
[2016-10-29 08:30] LABS: ABG Base Excess 1.8 mmol/L; ABG HCO3 28 mmol/L (21-25); ABG Oxygen Saturation 95.3 % (94-97); ABG PCO2 61 mmHg (35-45); ABG PH 7.28 (7.35-7.45); ABG PO2 89 mmHg (83-108); ABG TCO2 30 mmol/L (19-24)
[2016-10-29] MEDS: FUROSEMIDE 10 MG/ML 4 ML VIAL IV SCH ×2 (09:39→20:05)
[2016-10-29] MEDS: CISATRACURIUM 200 MG in SODIUM CHLORIDE 0.9% 180 ML IV SCH (11:33)
[2016-10-29 11:38] LABS: Glucose,Whole Blood 125 mg/dL (75-99)
--- NOTE | 2016-10-29 11:55 | P.PN ---
Subjective Principal diagnosis: Acute hypoxic and hypercapnic respiratory failure secondary to acute COPD exacerbation. 66-year-old male patient with advanced COPD and history of chronic extensive smoking presented to the [facility] problem with respiratory failure. The patient apparently was doing poorly over the past few weeks. He was planning to see me in the office next week and meanwhile he was seeing his primary care physician. One point was noted to have a pulse ox of 83% and he was placed on home O2. The patient was getting progressively more short of breath and earlier this morning he was brought into the hospital through EMS for respiratory failure. In the ED he was briefly placed on a BiPAP which she failed and the patient was becoming more obtunded and agitated and short of breath and for that reason he was intubated and placed on a mechanical ventilator. Note that his blood gases while being on 100% nonrebreather showed a pH of 7.2 with a pCO2 of 104 and pO2 of 102. Note that at time of arrival the patient was also in a flutter with rapid ventricular response at the rate of 160. and he was started on Cardizem drip at the rate of 10 mg an hour after being given a bolus of 20 mg IV push. On 10/27/2016 the patient is being seen in follow-up. The patient remains intubated on mechanical ventilator. The patient remains sedated with Diprivan. No paralytics was utilized. The patient and assist control mode at the rate of 18, tidal volume 400, FiO2 of 50% and a PEEP of 5. Peak airway pressures around 34 with left toe pressure of 17. Also PEEP is at 6. The peak flow is at 70. The I:E ratio is 1 to 4. The chest x-ray remains essentially stable and the ET tube is in a good location. The blood gas showed a pH of 7.33 with a pCO2 of 57 and pO2 of 91. On examination the patient is still having significant amount of looseness for secretions being suctioned from the endotracheal tube. The patient is also having significant extremity wheezes on examination. Hemodynamically, the patient was on pressors overnight as the patient became hypotensive postintubation. He was started on fluids and norepinephrine infusion which was discontinued this morning. His cardiac rhythm remains sinus and there is no evidence of any throughout the rhythm for now. Cardiac enzymes were minimally elevated with troponins of 0.05 max. Patient was reevaluated today on 10/28/2016, he remains on mechanical ventilation , however I was able to cut down his FiO2 to 45%, the rest of the ventilator settings remained the same. His peak airway pressure is unchanged, and his plateau pressure is also unchanged. Patient remains sedated on propofol, did not require any muscle paralytic agents. Chest x-ray however is showing evidence of by basilar pneumonia, possibility of slight interstitial edema is not entirely ruled out. However I believe this is mostly pneumonia involving the lower lobes, most likely hospital acquired pneumonia. Could even be related to aspiration. Patient was reevaluated today on 10/29/2016, he remains on mechanical ventilation , his tidal volume today was increased because of his ABG showed a pO2 of 89 pCO2 of 61 and pH of 7.28. Chest x-ray is showing evidence of mild interstitial edema, and that is not surprising considering his echocardiogram showing LV dysfunction. Patient is now in sinus rhythm, he is hemodynamically stable, not requiring any norepinephrine. Today I added Lasix 40 mg IV push every 12 hours, and we will give him a chance to wake up today off sedation, and assess his mental status. But clearly the patient is not ready for weaning at this point. His sputum was positive for Streptococcus pneumonia, the sensitivity on the organism was noted, patient is now on Levaquin, and I will go ahead and add Rocephin. Patient remains on tube feeding for nutritional support, remains on GI and DVT prophylaxis. After reviewing his chest x-ray today, I recommended adding diuretics. Objective - Vital Signs Vital signs: Vital Signs Temp 97.7 F 10/29/16 11:30 Pulse 84 10/29/16 11:30 Resp 17 10/29/16 11:30 BP 105/65 10/29/16 11:30 Pulse Ox 94 L 10/29/16 11:30 Intake & Output 10/28/16 10/29/16 10/29/16 18:59 06:59 18:59 Intake Total 0074.022 1097.709 459.595 Output Total 660 504 770 Balance 514.326 0488.709 -310.405 Weight 101.2 kg 100.3 kg 100.3 kg Intake: IV 100 1100 100 Sodium Chloride 0.9% 1, 100 1100 100 000 ml @ 100 mls/hr IV . Q10H [facility] Rx#:[id number] Intake, IV Titration 818.453 309.709 149.595 Amount Norepinephrine 16 mg In 50.608 25.534 Sodium Chloride 0.9% 250 ml @ Titrate IV .Q0M [facility] Rx#:[id number] Propofol 500 mg In Empty 267.845 284.175 149.595 Bag 1 bag @ Titrate IV . Q0M [facility] Rx#:[id number] Sodium Chloride 0.9% 500 500 ml @ 999 mls/hr IV .Q31M [facility] Rx#:[id number] Tube Feeding 280 320 120 Other 300 90 90 Output: Urine 660 504 770 Other: Voiding Method Indwelling Catheter Indwelling Catheter Indwelling Catheter # Bowel Movements 0 0 0 ABP, PAP, CO, CI - Last Documented Arterial Blood Pressure 131/66 - Exam Physical Exam: Revealed a 66-year-old obese, on mechanical ventilation. Endotracheal tube is intact. HEENT:[Neck is supple.] [No neck masses.] [No thyromegaly.] [No JVD.] Chest: [Crackles and rhonchi are noted at the bases. Cardiac Exam: Irregular irregular rhythm. [Normal S1 and S2, no S3 gallop, 2/6 systolic murmur throughout the precordium. Abdomen: [Soft, nontender, no megaly, no rebound, no guarding, normal bowel sounds.] Extremities: [No clubbing, trace of bipedal edema, no cyanosis.] Neurological Exam: Was not assessed, patient is sedated on propofol. - Labs CBC & Chem 7: 10/29/16 05:07 10/29/16 05:07 Labs: Abnormal Lab Results - Last 24 Hours (Table) 10/28/16 10/28/16 10/28/16 Range/Units 12:27 17:04 23:54 RBC (4.30-5.90) m/uL Hgb (13.0-17.5) gm/dL MCV (80.0-100.0) fL MCHC (31.0-37.0) g/dL Neutrophils # (1.3-7.7) k/uL Lymphocytes # (1.0-4.8) k/uL ABG pH (7.35-7.45) ABG pCO2 (35-45) mmHg ABG HCO3 (21-25) mmol/L ABG Total CO2 (19-24) mmol/L Potassium (3.5-5.1) mmol/L BUN (9-20) mg/dL Glucose (74-99) mg/dL POC Glucose (mg/dL) 167 H 160 H 133 H (75-99) mg/dL Magnesium (1.6-2.3) mg/dL 10/29/16 10/29/16 10/29/16 Range/Units 05:07 05:07 06:44 RBC 3.81 L (4.30-5.90) m/uL Hgb 12.6 L (13.0-17.5) gm/dL MCV 107.4 H (80.0-100.0) fL MCHC 30.9 L (31.0-37.0) g/dL Neutrophils # 7.8 H (1.3-7.7) k/uL Lymphocytes # 0.4 L (1.0-4.8) k/uL ABG pH (7.35-7.45) ABG pCO2 (35-45) mmHg ABG HCO3 (21-25) mmol/L ABG Total CO2 (19-24) mmol/L Potassium 5.4 H (3.5-5.1) mmol/L BUN 33 H (9-20) mg/dL Glucose 145 H (74-99) mg/dL POC Glucose (mg/dL) 141 H (75-99) mg/dL Magnesium 2.5 H (1.6-2.3) mg/dL 10/29/16 10/29/16 Range/Units 08:16 11:29 RBC (4.30-5.90) m/uL Hgb (13.0-17.5) gm/dL MCV (80.0-100.0) fL MCHC (31.0-37.0) g/dL Neutrophils # (1.3-7.7) k/uL Lymphocytes # (1.0-4.8) k/uL ABG pH 7.28 L (7.35-7.45) ABG pCO2 61 H (35-45) mmHg ABG HCO3 28 H (21-25) mmol/L ABG Total CO2 30 H (19-24) mmol/L Potassium (3.5-5.1) mmol/L BUN (9-20) mg/dL Glucose (74-99) mg/dL POC Glucose (mg/dL) 125 H (75-99) mg/dL Magnesium (1.6-2.3) mg/dL Microbiology - Last 24 Hours (Table) 10/26/16 13:10 Gram Stain - Final Sputum Sputum Culture - Final Streptococcus pneumoniae Assessment and Plan Plan: 1 acute hypercapnic respiratory failure secondary to COPD exacerbation. The patient is in acute hypercapnic respiratory failure with significant respiratory acidosis the time of arrival, failed BiPAP therapy, subsequently intubated and placed on a mechanical ventilator. He remains quite bronchospastic and wheezy with significant elevation of the peak airway pressures. He is currently sedated Diprivan. 2 bibasilar airspace disease, consistent with pneumonia, this could very well be aspiration in nature or could be hospital acquired pneumonia. Possibility of mild interstitial edema is not entirely ruled out. 3 shortness of breath and respiratory failure secondary to above, also secondary to some component of cardiomyopathy, LV dysfunction, and congestive heart failure. 4 a flutter with rapid ventricular response, patient is today in sinus rhythm. 5 minimal troponin leak with troponin level of 0.06 6 obesity 7 nicotine addiction 8 history of severe chronic hypoxic respiratory failure secondary to COPD. 9 abnormal echocardiogram suggestive of LV dysfunction and cardiomyopathy. 10 acute congestive heart failure secondary to LV dysfunction this is best noted on the chest x-ray today, hence the patient will be placed on maintenance dose of Lasix 40 mg IV push and 12 hours. Recommendation: Continue present treatment plan including bronchodilators, empiric antibiotics coverage, sputum is positive for Streptococcus pneumonia, patient will remain on Levaquin and Rocephin was added. his initial chest x- ray on admission was negative, but follow-up chest x-ray is showing pneumonia. Has we'll continue Levaquin empirically, continue GI and DVT prophylaxis, continue treatment of his atrial fibrillation/flutter continue nutritional support, and we will follow closely. I discussed his condition with all his family members at bedside, critical care time is 35 minutes. Patient is clearly not ready for any weaning at this point. Lasix was added today at 40 mg IV push every 12 hours. Time with Patient: Greater than 30
[2016-10-29] MEDS: cefTRIAXone 2,000 MG in SODIUM CHLORIDE 0.9% 100 ML IVPB SCH (13:00)
--- NOTE | 2016-10-29 13:02 | P.PN ---
Subjective Principal diagnosis: Paroxysmal atrial fibrillation This is a pleasant 66-year-old gentleman with a past medical history significant for COPD and chronic respiratory failure who never seen a afterschool with no documentation of any history of coronary artery disease or congestive heart failure or cardiac arrhythmia presented to the hospital complaining of progressive dyspnea. The patient was found to be in acute respiratory distress. He is known to have severe COPD. Initially the patient was put on BiPAP without any improvement. Subsequently he started becoming agitated and more hypoxic. At that point he was intubated and placed on ventilator. We get involved in the care of the patient because he went into an atrial flutter with RVR. Subsequently the patient was started on amiodarone IV and converted into normal sinus mechanism. Beside that the cardiac enzymes were checked and came in to be slightly abnormal. The EKG showed only barely repolarization. The family states that the patient did not have any symptoms of chest pain or chest discomfort. Currently the patient is in normal sinus mechanism with a controlled heart rate. The patient continues to be hemodynamically stable and he's off Levophed. I am going to start the patient on calcium channel tom with Cardizem. We' ll continue anticoagulation using xarelto. Objective - Vital Signs Vital signs: Vital Signs Temp 97.7 F 10/29/16 11:30 Pulse 76 10/29/16 12:00 Resp 18 10/29/16 12:00 BP 108/64 10/29/16 12:00 Pulse Ox 92 L 10/29/16 12:00 Intake & Output 10/28/16 10/29/16 10/29/16 18:59 06:59 18:59 Intake Total 3237.411 1945.709 579.595 Output Total 894 698 1641 Balance 401.987 7904.709 -840.405 Weight 101.2 kg 100.3 kg 100.3 kg Intake: IV 100 1100 100 Sodium Chloride 0.9% 1, 100 1100 100 000 ml @ 100 mls/hr IV . Q10H [facility] Rx#:[id number] Intake, IV Titration 818.453 309.709 249.595 Amount Norepinephrine 16 mg In 50.608 25.534 Sodium Chloride 0.9% 250 ml @ Titrate IV .Q0M [facility] Rx#:[id number] Propofol 500 mg In Empty 267.845 284.175 149.595 Bag 1 bag @ Titrate IV . Q0M [facility] Rx#:[id number] Sodium Chloride 0.9% 500 500 ml @ 999 mls/hr IV .Q31M [facility] Rx#:[id number] cefTRIAXone 2,000 mg In 100 Sodium Chloride 0.9% 100 ml @ 100 mls/hr IVPB DAILY@1200 [facility] Rx#: [id number] Tube Feeding 280 320 140 Other 300 90 90 Output: Urine 453 584 6479 Other: Voiding Method Indwelling Catheter Indwelling Catheter Indwelling Catheter # Bowel Movements 0 0 0 ABP, PAP, CO, CI - Last Documented Arterial Blood Pressure 128/60 - Constitutional General appearance: Present: no acute distress - Respiratory Respiratory: bilateral: diminished - Cardiovascular Rhythm: regular Heart sounds: normal: S1, S2 - Labs CBC & Chem 7: 10/29/16 05:07 10/29/16 05:07 Labs: Abnormal Lab Results - Last 24 Hours (Table) 10/28/16 10/28/16 10/29/16 Range/Units 17:04 23:54 05:07 RBC 3.81 L (4.30-5.90) m/uL Hgb 12.6 L (13.0-17.5) gm/dL MCV 107.4 H (80.0-100.0) fL MCHC 30.9 L (31.0-37.0) g/dL Neutrophils # 7.8 H (1.3-7.7) k/uL Lymphocytes # 0.4 L (1.0-4.8) k/uL ABG pH (7.35-7.45) ABG pCO2 (35-45) mmHg ABG HCO3 (21-25) mmol/L ABG Total CO2 (19-24) mmol/L Potassium (3.5-5.1) mmol/L BUN (9-20) mg/dL Glucose (74-99) mg/dL POC Glucose (mg/dL) 160 H 133 H (75-99) mg/dL Magnesium (1.6-2.3) mg/dL 10/29/16 10/29/16 10/29/16 Range/Units 05:07 06:44 08:16 RBC (4.30-5.90) m/uL Hgb (13.0-17.5) gm/dL MCV (80.0-100.0) fL MCHC (31.0-37.0) g/dL Neutrophils # (1.3-7.7) k/uL Lymphocytes # (1.0-4.8) k/uL ABG pH 7.28 L (7.35-7.45) ABG pCO2 61 H (35-45) mmHg ABG HCO3 28 H (21-25) mmol/L ABG Total CO2 30 H (19-24) mmol/L Potassium 5.4 H (3.5-5.1) mmol/L BUN 33 H (9-20) mg/dL Glucose 145 H (74-99) mg/dL POC Glucose (mg/dL) 141 H (75-99) mg/dL Magnesium 2.5 H (1.6-2.3) mg/dL 10/29/16 Range/Units 11:29 RBC (4.30-5.90) m/uL Hgb (13.0-17.5) gm/dL MCV (80.0-100.0) fL MCHC (31.0-37.0) g/dL Neutrophils # (1.3-7.7) k/uL Lymphocytes # (1.0-4.8) k/uL ABG pH (7.35-7.45) ABG pCO2 (35-45) mmHg ABG HCO3 (21-25) mmol/L ABG Total CO2 (19-24) mmol/L Potassium (3.5-5.1) mmol/L BUN (9-20) mg/dL Glucose (74-99) mg/dL POC Glucose (mg/dL) 125 H (75-99) mg/dL Magnesium (1.6-2.3) mg/dL Microbiology - Last 24 Hours (Table) 10/26/16 13:10 Gram Stain - Final Sputum Sputum Culture - Final Streptococcus pneumoniae Assessment and Plan Plan: Assessment #1 paroxysmal atrial fibrillation/atrial flutter #2 acute respiratory failure #3 COPD exacerbation #4 mildly abnormal cardiac enzymes Plan #1 start the patient on calcium channel tom #2 continue anticoagulation #3 follow-up on the echocardiogram #4 follow-up with the patient
[2016-10-29 13:34] LABS: Magnesium 2.5 mg/dL (1.6-2.3)
--- NOTE | 2016-10-29 15:24 | CDI ---
In responding to this query, please exercise your independent professional judgment. The [facility] Coding Staff and Clinical Documentation Specialists appreciate your assistance in clarifying documentation, maintaining compliance with coding guidelines, accurately documenting patients condition and capturing severity of illness. The fact that a question is asked does not imply that any particular answer is desired or expected. Communication forms are a method of clarifying documentation and are not made part of the Legal Health Record. Thank you in advance for your clarification. Last Revision, August 2015 Alec Beckett [address] [facility] [place] [address] Documentation Clarification Form Date: 10/29/2016 3:10:00 PM From: Nguyen Ovalles, CCS, CCDS Admit Date: 10/26/2016 12:14:00 PM Patient Name: Reginald Comer Visit Number: [id number] Discharge Date: Dr. Jose Guadalupe Mcadams: 66 yo male, presented in respiratory distress, intubated in EC, to ICU. Also went into A Fib and A Flutter. Has extensive smoking history. Admitted with acute hypoxic & hypercapnic respiratory failure, COPD exacerbation and Streptococcus pneumonia. History/Risk Factors: COPD, Smoker, Obesity. Clinical Indicators: Hypotensive: BP 126/83 - 70/50 Tachycardic: HR 170 - 162 WBC: 12/6, 13.8; Neutrophls: 9.7, 11.0, 12.2 Sputum culture: Streptococcus pneumoniae Treatment: IV fluid resuscitation, IV antibiotics, Intubation, IV Solumedrol, Cardizem drip, nebulizer INH, IV Lasix. Consults: ID, Pulmonary/Critical Care, Cardiology In your professional opinion, can you please clarify if these findings signify one of the following conditions, whether the condition is POA, and cause, if known? Sepsis Severe Sepsis Septic Shock Unable to determine Please document in your progress notes and discharge summary in order to capture severity of illness and risk of mortality. Include clinical findings that support your diagnosis. FYI: Press F11 to launch patient chart. Place X here if this finding has no clinical significance, is not applicable or if you are not able to provide any additional documentation. Thank You. Already dictated in the note and don't waste my time. JONN
[2016-10-29] MEDS: RIVAROXABAN 10 MG TAB PO SCH (15:59)
[2016-10-29] MEDS ORDERED: DILTIAZEM ORAL 30 MG TAB PO SCH (16:00)
[2016-10-29 17:11] LABS: Glucose,Whole Blood 130 mg/dL (75-99)
--- NOTE | 2016-10-29 17:33 | PN ---
Patient is a 66-year-old admitted with acute hypoxic respiratory failure secondary to acute hypoxic as well as hypercapnic respiratory failure secondary to COPD exacerbation, congestive heart failure exacerbation and pneumonia in the right lower lung limon. Patient has pneumococcal pneumonia and levofloxacin will be discontinued. Patient will be continued on ceftriaxone and patient has a depressed ejection fraction of around 35%. Patient has pulmonary edema. Patient is receiving Lasix today. Patient is in atrial fibrillation. Patient is on Cardizem which needs to be switched to beta tom. Same thing was informed to cardiology and patient has depressed ejection fraction. Review of systems unable to obtain due to his clinical condition of intubated state. Medications were reviewed. PHYSICAL EXAMINATION: Temperature 97.7, pulse of 76, respiratory rate of 18, blood pressure is 99/58, saturating at 92% on ventilator. Please refer to marble machine operator dictation for further details of vent settings. Patient's RASS score of -2. HEENT: Pupils are round and equally reacting to light. EOMI. No scleral icterus. No conjunctival pallor. Normocephalic, atraumatic. No pharyngeal erythema. No thyromegaly. CARDIOVASCULAR: S1 and S2 present. No murmurs, rubs, or gallops. ABDOMEN: Soft, nontender, nondistended, normoactive bowel sounds. No palpable organomegaly. LUNGS: Bibasilar crackles, diffuse, are heard posteriorly. The patient does have wheezing and decreased air entry as well. MUSCULOSKELETAL: No joint swelling or deformity. EXTREMITIES: No cyanosis, clubbing, or pedal edema. NEUROLOGICAL: RASS score of -2. SKIN: No rashes. LABORATORY DATA: CBC and CMP are abnormal for mildly elevated potassium. Repeat potassium is within normal limits. Patient is not on ALFIE inhibitor at this point of time. ASSESSMENT AND PLAN: 1. Acute respiratory failure, both acute hypercapnic as well as hypoxic respiratory failure secondary to chronic obstructive pulmonary disease exacerbation pneumonia as well as congestive heart failure exacerbation and patient is receiving Lasix today. Main issue is her blood pressure so cautious diuretic therapy and shock, which is cardiogenic and hypovolemic as well as septic shock for which patient was on Levophed drip and Levophed is being tapered down and patient is receiving Lasix as mentioned above. Patient is on Rocephin for pneumococcal pneumonia. 2. Right lower lobe pneumococcal pneumonia on ceftriaxone as mentioned above. 3. Congestive heart failure, chronic systolic dysfunction with acute exacerbation. 4. Atrial fibrillation. Patient is sinus rhythm, at this point of time, rate controlled. 5. Nicotine abuse. 6. Obesity. 7. His overall prognosis is guarded. Patient is presently intubated.
[2016-10-29] MEDS: LATANOPROST 0.005% OPHTH DROPS 2.5 ML BTL BOTH EYES SCH (20:05)
[2016-10-29] MEDS: METOPROLOL TARTRATE 25 MG TAB PO SCH (21:40)
[2016-10-30] MEDS: PROPOFOL 500 MG in EMPTY BAG 1 BAG IV SCH ×8 (00:10→19:13)
[2016-10-30 00:13] LABS: Glucose,Whole Blood 120 mg/dL (75-99)
[2016-10-30] MEDS: methylPREDNISolone SOD SUCCI 125 MG/2 ML VIAL IV SCH ×4 (00:54→19:13)
[2016-10-30] MEDS: INSULIN LISPRO (humaLOG) 300 UNIT/3 ML VIAL SQ SCH ×4 (00:54→19:13)
[2016-10-30] MEDS: LEVALBUTEROL NEB (CONC) 1.25 MG/0.5 ML AMP INHALATION SCH ×6 (03:12→23:27)
[2016-10-30] MEDS: IPRATROPIUM 0.5 MG/2.5 ML NEBU INHALATION SCH ×6 (03:12→23:27)
[2016-10-30 05:12] LABS: Basophils % (A) 0 %; CH 33.2; Eosinophils % (A) 0 %; HCT 41.6 % (39.0-53.0); HDW 2.47; HGB 13.3 gm/dL (13.0-17.5); Luc # (Auto) 0.07; Luc % (Auto) 1; Lymphocytes # (A) 0.5 k/uL (1.0-4.8); Lymphocytes % (A) 6 %; MCH 33.2 pg (25.0-35.0); MCHC 31.9 g/dL (31.0-37.0); MCV 104.2 fL (80.0-100.0); Macrocytosis Slight; Mean Platelet Volume 6.9; Monocytes # (A) 0.5 k/uL (0-1.0); Monocytes % (A) 6 %; Neutrophils # (A) 7.7 k/uL (1.3-7.7); Neutrophils % (A) 88 %; RBC 3.99 m/uL (4.30-5.90); RDW 13.6 % (11.5-15.5); WBC 8.8 k/uL (3.8-10.6); WBC (Perox) 8.87
[2016-10-30 05:21] LABS: Anion Gap 8 mmol/L; Blood Urea Nitrogen 53 mg/dL (9-20); Calcium 8.5 mg/dL (8.4-10.2); Carbon Dioxide 33 mmol/L (22-30); Chloride 100 mmol/L (98-107); Glucose 139 mg/dL (74-99); Magnesium 2.6 mg/dL (1.6-2.3); Non-African American GFR(MDRD) >60 (>60 ml/min/1.73 sqM); Phosphorous 4.5 mg/dL (2.5-4.5); Potassium 4.5 mmol/L (3.5-5.1); Sodium 141 mmol/L (137-145)
[2016-10-30 06:20] LABS: Glucose,Whole Blood 125 mg/dL (75-99)
[2016-10-30] MEDS: BUDESONIDE 0.5 MG/2 ML NEBU INHALATION SCH ×2 (07:28→19:31)
--- NOTE | 2016-10-30 08:10 | XR ---
EXAMINATION TYPE: XR chest 1V portable DATE OF EXAM: 10/30/2016 6:55 AM COMPARISON: Prior chest x-ray 29 October 2016 HISTORY: Intubated TECHNIQUE: Single frontal view of the chest is obtained. FINDINGS: Endotracheal tube, NG tube, left subclavian central venous catheter or overlying appropria te positions. No evident pneumothorax. Bibasilar increased density persists, the heart is enlarged. C entral vascularity and interstitium are increased. There are overlying cardiac leads. IMPRESSION: Similar findings. Correlate for congestive heart failure with bilateral pleural effusions . Pneumonia not excluded.
[2016-10-30] MEDS: CHLORHEXIDINE GLUCONATE 15 ML CUP MUCOUS MEM SCH ×2 (08:16→20:55)
[2016-10-30] MEDS: FUROSEMIDE 10 MG/ML 4 ML VIAL IV SCH ×2 (08:16→20:55)
[2016-10-30] MEDS: PANTOPRAZOLE 40 MG/10 ML VIAL IVP SCH (08:17)
[2016-10-30] MEDS: METOPROLOL TARTRATE 25 MG TAB PO SCH ×2 (08:17→20:55)
[2016-10-30 08:39] LABS: ABG PH 7.42 (7.35-7.45)
[2016-10-30 08:40] LABS: ABG HCO3 33 mmol/L (21-25); ABG PCO2 51 mmHg (35-45); ABG PO2 74 mmHg (83-108); ABG TCO2 34 mmol/L (19-24)
--- NOTE | 2016-10-30 09:17 | P.PN ---
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 The patient was found to be in acute respiratory distress. He is known to have severe COPD. Initially the patient was put on BiPAP without any improvement. Subsequently he started becoming agitated and more hypoxic. At that point he was intubated and placed on ventilator. We get involved in the care of the patient because he went into an atrial flutter with RVR. Subsequently the patient was started on amiodarone IV and converted into normal sinus mechanism. Beside that the cardiac enzymes were checked and came in to be slightly abnormal. The family states that the patient did not have any symptoms of chest pain or chest discomfort. Currently the patient is in normal sinus mechanism with a controlled heart rate. The patient continues to be hemodynamically stable and he's off Levophed. He underwent an echocardiogram which showed cardiomyopathy. I am going to add lisinopril and aldactone to the metoprolol. He is maintaining normal sinus mechanism. He is on anticoagulation. Objective - Vital Signs Vital signs: Vital Signs Temp 98.3 F 10/30/16 08:00 Pulse 66 10/30/16 08:00 Resp 18 10/30/16 08:00 BP 109/64 10/30/16 08:00 Pulse Ox 93 L 10/30/16 08:00 Intake & Output 10/29/16 10/30/16 10/30/16 18:59 06:59 18:59 Intake Total 924.928 982.667 74.250 Output Total 2325 1505 285 Balance -1400.072 -522.333 -210.750 Weight 100.3 kg 98.7 kg Intake: IV 100 220 20 0.9 KVO/Carrier 220 20 Sodium Chloride 0.9% 1, 100 000 ml @ 100 mls/hr IV . Q10H [facility] Rx#:[id number] Intake, IV Titration 344.928 392.667 34.250 Amount Propofol 500 mg In Empty 244.928 392.667 34.250 Bag 1 bag @ Titrate IV . Q0M [facility] Rx#:[id number] cefTRIAXone 2,000 mg In 100 Sodium Chloride 0.9% 100 ml @ 100 mls/hr IVPB DAILY@1200 [facility] Rx#: [id number] Tube Feeding 300 280 20 Other 180 90 Output: Urine 2325 1505 285 Other: Voiding Method Indwelling Catheter Indwelling Catheter # Bowel Movements 0 0 ABP, PAP, CO, CI - Last Documented Arterial Blood Pressure 140/66 - Constitutional General appearance: Present: no acute distress - Respiratory Respiratory: bilateral: wheezing - Cardiovascular Rhythm: regular Heart sounds: normal: S1, S2 - Labs CBC & Chem 7: 10/30/16 04:55 10/30/16 04:55 Labs: Abnormal Lab Results - Last 24 Hours (Table) 10/29/16 10/29/16 10/29/16 Range/Units 11:29 13:00 17:08 RBC (4.30-5.90) m/uL MCV (80.0-100.0) fL Lymphocytes # (1.0-4.8) k/uL ABG pCO2 (35-45) mmHg ABG pO2 (83-108) mmHg ABG HCO3 (21-25) mmol/L ABG Total CO2 (19-24) mmol/L Carbon Dioxide (22-30) mmol/L BUN (9-20) mg/dL Glucose (74-99) mg/dL POC Glucose (mg/dL) 125 H 130 H (75-99) mg/dL Magnesium 2.5 H (1.6-2.3) mg/dL 10/30/16 10/30/16 10/30/16 Range/Units 00:11 04:55 04:55 RBC 3.99 L (4.30-5.90) m/uL MCV 104.2 H (80.0-100.0) fL Lymphocytes # 0.5 L (1.0-4.8) k/uL ABG pCO2 (35-45) mmHg ABG pO2 (83-108) mmHg ABG HCO3 (21-25) mmol/L ABG Total CO2 (19-24) mmol/L Carbon Dioxide 33 H (22-30) mmol/L BUN 53 H (9-20) mg/dL Glucose 139 H (74-99) mg/dL POC Glucose (mg/dL) 120 H (75-99) mg/dL Magnesium 2.6 H (1.6-2.3) mg/dL 10/30/16 10/30/16 Range/Units 06:18 08:25 RBC (4.30-5.90) m/uL MCV (80.0-100.0) fL Lymphocytes # (1.0-4.8) k/uL ABG pCO2 51 H (35-45) mmHg ABG pO2 74 L (83-108) mmHg ABG HCO3 33 H (21-25) mmol/L ABG Total CO2 34 H (19-24) mmol/L Carbon Dioxide (22-30) mmol/L BUN (9-20) mg/dL Glucose (74-99) mg/dL POC Glucose (mg/dL) 125 H (75-99) mg/dL Magnesium (1.6-2.3) mg/dL Assessment and Plan Plan: Assessment #1 paroxysmal atrial fibrillation/atrial flutter #2 acute respiratory failure #3 COPD exacerbation #4 cardiomyopathy Plan #1 add aldactone and and lisinopril #2 continue anticoagulation #3 follow-up with the patient
[2016-10-30 11:52] LABS: ABG HCO3 34 mmol/L (21-25); ABG PCO2 58 mmHg (35-45); ABG PH 7.39 (7.35-7.45); ABG PO2 85 mmHg (83-108)
[2016-10-30 11:53] LABS: ABG TCO2 36 mmol/L (19-24)
[2016-10-30 12:21] LABS: Glucose,Whole Blood 98 mg/dL (75-99)
[2016-10-30] MEDS: cefTRIAXone 2,000 MG in SODIUM CHLORIDE 0.9% 100 ML IVPB SCH (13:02)
--- NOTE | 2016-10-30 13:16 | P.PN ---
Subjective Principal diagnosis: Acute hypoxic and hypercapnic respiratory failure secondary to acute COPD exacerbation. 66-year-old male patient with advanced COPD and history of chronic extensive smoking presented to the [facility] problem with respiratory failure. The patient apparently was doing poorly over the past few weeks. He was planning to see me in the office next week and meanwhile he was seeing his primary care physician. One point was noted to have a pulse ox of 83% and he was placed on home O2. The patient was getting progressively more short of breath and earlier this morning he was brought into the hospital through EMS for respiratory failure. In the ED he was briefly placed on a BiPAP which she failed and the patient was becoming more obtunded and agitated and short of breath and for that reason he was intubated and placed on a mechanical ventilator. Note that his blood gases while being on 100% nonrebreather showed a pH of 7.2 with a pCO2 of 104 and pO2 of 102. Note that at time of arrival the patient was also in a flutter with rapid ventricular response at the rate of 160. and he was started on Cardizem drip at the rate of 10 mg an hour after being given a bolus of 20 mg IV push. On 10/27/2016 the patient is being seen in follow-up. The patient remains intubated on mechanical ventilator. The patient remains sedated with Diprivan. No paralytics was utilized. The patient and assist control mode at the rate of 18, tidal volume 400, FiO2 of 50% and a PEEP of 5. Peak airway pressures around 34 with left toe pressure of 17. Also PEEP is at 6. The peak flow is at 70. The I:E ratio is 1 to 4. The chest x-ray remains essentially stable and the ET tube is in a good location. The blood gas showed a pH of 7.33 with a pCO2 of 57 and pO2 of 91. On examination the patient is still having significant amount of looseness for secretions being suctioned from the endotracheal tube. The patient is also having significant extremity wheezes on examination. Hemodynamically, the patient was on pressors overnight as the patient became hypotensive postintubation. He was started on fluids and norepinephrine infusion which was discontinued this morning. His cardiac rhythm remains sinus and there is no evidence of any throughout the rhythm for now. Cardiac enzymes were minimally elevated with troponins of 0.05 max. Patient was reevaluated today on 10/28/2016, he remains on mechanical ventilation , however I was able to cut down his FiO2 to 45%, the rest of the ventilator settings remained the same. His peak airway pressure is unchanged, and his plateau pressure is also unchanged. Patient remains sedated on propofol, did not require any muscle paralytic agents. Chest x-ray however is showing evidence of by basilar pneumonia, possibility of slight interstitial edema is not entirely ruled out. However I believe this is mostly pneumonia involving the lower lobes, most likely hospital acquired pneumonia. Could even be related to aspiration. Patient was reevaluated today on 10/29/2016, he remains on mechanical ventilation , his tidal volume today was increased because of his ABG showed a pO2 of 89 pCO2 of 61 and pH of 7.28. Chest x-ray is showing evidence of mild interstitial edema, and that is not surprising considering his echocardiogram showing LV dysfunction. Patient is now in sinus rhythm, he is hemodynamically stable, not requiring any norepinephrine. Today I added Lasix 40 mg IV push every 12 hours, and we will give him a chance to wake up today off sedation, and assess his mental status. But clearly the patient is not ready for weaning at this point. His sputum was positive for Streptococcus pneumonia, the sensitivity on the organism was noted, patient is now on Levaquin, and I will go ahead and add Rocephin. Patient remains on tube feeding for nutritional support, remains on GI and DVT prophylaxis. After reviewing his chest x-ray today, I recommended adding diuretics. Patient was reevaluated today on 10/30/2016, he remains on mechanical ventilation , ABG showed a pO2 of 74, a CO2 of 51 pH of 7.42, and this was on assist control mode of mechanical ventilation. Patient was awakened today, propofol was placed on hold, and we assess his mental status, patient seems to be appropriate, but generally weak, and I went ahead and give him a trial of weaning utilizing pressure support of 8 and initially IMV then he went to pressure support of 8 and CPAP. Patient did very well initially, however about one hour into the weaning, he was noted to have significant weakness, lethargy, and he was gagging on the endotracheal tube. Repeat ABG was not unreasonable, pO2 was 85 pCO2 was 58 pH was 7.39. However the patient was noted to be more tachypneic, a bit tachycardic, and could not maintain a good eye contact while I was there at bedside. I felt that the patient is about ready to be extubated , but not very yet. He is almost close. Hence I have decided to give him another day of mechanical ventilation, and I did not proceed to any further weaning trials. We'll try to do this again tomorrow, and if he continues to do well may consider extubating the patient tomorrow. Chest x-ray is showing improvement in his pulmonary edema, he continues to respond well to diuretics. Remains on antibiotics, and on bronchodilators as well as diuretics. Objective - Vital Signs Vital signs: Vital Signs Temp 98.4 F 10/30/16 12:00 Pulse 86 10/30/16 12:00 Resp 20 10/30/16 12:30 BP 132/72 10/30/16 12:00 Pulse Ox 94 L 10/30/16 12:30 Intake & Output 10/29/16 10/30/16 10/30/16 18:59 06:59 18:59 Intake Total 924.928 982.667 249.750 Output Total 2325 1505 2735 Balance -1400.072 -522.333 -2485.250 Weight 100.3 kg 98.7 kg 98.7 kg Intake: IV 100 220 60 0.9 KVO/Carrier 220 60 Sodium Chloride 0.9% 1, 100 000 ml @ 100 mls/hr IV . Q10H [facility] Rx#:[id number] Intake, IV Titration 344.928 392.667 149.750 Amount Propofol 500 mg In Empty 244.928 392.667 49.750 Bag 1 bag @ Titrate IV . Q0M [facility] Rx#:[id number] cefTRIAXone 2,000 mg In 100 100 Sodium Chloride 0.9% 100 ml @ 100 mls/hr IVPB DAILY@1200 [facility] Rx#: [id number] Tube Feeding 300 280 40 Other 180 90 Output: Urine 2325 1505 2735 Other: Voiding Method Indwelling Catheter Indwelling Catheter Indwelling Catheter # Bowel Movements 0 0 1 ABP, PAP, CO, CI - Last Documented Arterial Blood Pressure 132/57 - Exam Physical Exam: Revealed a 66-year-old obese, on mechanical ventilation. Endotracheal tube is intact. HEENT:[Neck is supple.] [No neck masses.] [No thyromegaly.] [No JVD.] Chest: [Crackles and rhonchi are noted at the bases. Cardiac Exam: Irregular irregular rhythm. [Normal S1 and S2, no S3 gallop, 2/6 systolic murmur throughout the precordium. Abdomen: [Soft, nontender, no megaly, no rebound, no guarding, normal bowel sounds.] Extremities: [No clubbing, trace of bipedal edema, no cyanosis.] Neurological Exam: Generally weak, otherwise no focal neurologic deficit. - Labs CBC & Chem 7: 10/30/16 04:55 10/30/16 04:55 Labs: Abnormal Lab Results - Last 24 Hours (Table) 10/29/16 10/29/16 10/30/16 Range/Units 13:00 17:08 00:11 RBC (4.30-5.90) m/uL MCV (80.0-100.0) fL Lymphocytes # (1.0-4.8) k/uL ABG pCO2 (35-45) mmHg ABG pO2 (83-108) mmHg ABG HCO3 (21-25) mmol/L ABG Total CO2 (19-24) mmol/L Carbon Dioxide (22-30) mmol/L BUN (9-20) mg/dL Glucose (74-99) mg/dL POC Glucose (mg/dL) 130 H 120 H (75-99) mg/dL Magnesium 2.5 H (1.6-2.3) mg/dL 10/30/16 10/30/16 10/30/16 Range/Units 04:55 04:55 06:18 RBC 3.99 L (4.30-5.90) m/uL MCV 104.2 H (80.0-100.0) fL Lymphocytes # 0.5 L (1.0-4.8) k/uL ABG pCO2 (35-45) mmHg ABG pO2 (83-108) mmHg ABG HCO3 (21-25) mmol/L ABG Total CO2 (19-24) mmol/L Carbon Dioxide 33 H (22-30) mmol/L BUN 53 H (9-20) mg/dL Glucose 139 H (74-99) mg/dL POC Glucose (mg/dL) 125 H (75-99) mg/dL Magnesium 2.6 H (1.6-2.3) mg/dL 10/30/16 10/30/16 Range/Units 08:25 11:35 RBC (4.30-5.90) m/uL MCV (80.0-100.0) fL Lymphocytes # (1.0-4.8) k/uL ABG pCO2 51 H 58 H (35-45) mmHg ABG pO2 74 L (83-108) mmHg ABG HCO3 33 H 34 H (21-25) mmol/L ABG Total CO2 34 H 36 H (19-24) mmol/L Carbon Dioxide (22-30) mmol/L BUN (9-20) mg/dL Glucose (74-99) mg/dL POC Glucose (mg/dL) (75-99) mg/dL Magnesium (1.6-2.3) mg/dL Assessment and Plan Plan: 1 acute hypercapnic respiratory failure secondary to COPD exacerbation. The patient is in acute hypercapnic respiratory failure with significant respiratory acidosis the time of arrival, failed BiPAP therapy, subsequently intubated and placed on a mechanical ventilator. 2 bibasilar airspace disease, consistent with pneumonia, this could very well be aspiration in nature or could be hospital acquired pneumonia. Possibility of mild interstitial edema is not entirely ruled out. 3 shortness of breath and respiratory failure secondary to above, also secondary to some component of cardiomyopathy, LV dysfunction, and congestive heart failure. 4 a flutter with rapid ventricular response, patient is today in sinus rhythm. 5 minimal troponin leak with troponin level of 0.06 6 obesity 7 nicotine addiction 8 history of severe chronic hypoxic respiratory failure secondary to COPD. 9 abnormal echocardiogram suggestive of LV dysfunction and cardiomyopathy. 10 acute congestive heart failure secondary to LV dysfunction this is best noted on the chest x-ray today, hence the patient will be placed on maintenance dose of Lasix 40 mg IV push and 12 hours. Recommendation: Continue present treatment plan including bronchodilators, empiric antibiotics coverage, sputum is positive for Streptococcus pneumonia, patient will remain on Rocephin . his initial chest x-ray on admission was negative, but follow-up chest x-ray is showing pneumonia. continue GI and DVT prophylaxis, continue treatment of his atrial fibrillation/flutter continue nutritional support, and we will follow closely. I discussed his condition with all his family members at bedside, critical care time is 45 minutes. Patient was given a trial of weaning on pressure support of 8 and CPAP, please refer to my previous documentation above. Patient is definitely showing improvement, but not quite ready to be extubated this point yet. Time with Patient: Greater than 30
[2016-10-30] MEDS: CISATRACURIUM 200 MG in SODIUM CHLORIDE 0.9% 180 ML IV SCH (15:50)
--- NOTE | 2016-10-30 17:38 | P.PN ---
Subjective Patient remains intubated. Family at bedside patient was trialed for him possibility of extubation remains intubated. Patient able to nod appropriately to questions Objective - Vital Signs Vital signs: Vital Signs Temp 98.6 F 10/30/16 16:00 Pulse 74 10/30/16 16:00 Resp 23 10/30/16 16:00 BP 113/62 10/30/16 16:00 Pulse Ox 95 10/30/16 16:00 Intake & Output 10/29/16 10/30/16 10/30/16 18:59 06:59 18:59 Intake Total 924.928 982.667 454.917 Output Total 2325 1505 3485 Balance -1400.072 -522.333 -3030.083 Weight 100.3 kg 98.7 kg 98.7 kg Intake: IV 100 220 120 0.9 KVO/Carrier 220 120 Sodium Chloride 0.9% 1, 100 000 ml @ 100 mls/hr IV . Q10H [facility] Rx#:[id number] Intake, IV Titration 344.928 392.667 194.917 Amount Propofol 500 mg In Empty 244.928 392.667 94.917 Bag 1 bag @ Titrate IV . Q0M [facility] Rx#:[id number] cefTRIAXone 2,000 mg In 100 100 Sodium Chloride 0.9% 100 ml @ 100 mls/hr IVPB DAILY@1200 [facility] Rx#: [id number] Tube Feeding 300 280 140 Other 180 90 Output: Urine 2325 1505 3485 Other: Voiding Method Indwelling Catheter Indwelling Catheter Indwelling Catheter # Bowel Movements 0 0 1 ABP, PAP, CO, CI - Last Documented Arterial Blood Pressure 133/55 - Constitutional General appearance: Present: obese - EENT Eyes: Present: PERRLA Ears: bilateral: normal - Neck Neck: Present: normal ROM - Respiratory Details: Intubated Respiratory: bilateral: diminished - Cardiovascular Details: Patient is generalized anasarca Rhythm: regular - Gastrointestinal General gastrointestinal: Present: soft - Integumentary Integumentary: Present: normal - Musculoskeletal Musculoskeletal: Present: generalized weakness - Psychiatric Psychiatric Comment(s): Nods appropriately to questions - Labs CBC & Chem 7: 10/30/16 04:55 10/30/16 04:55 Labs: Abnormal Lab Results - Last 24 Hours (Table) 01/10/30/16 10/30/16 Range/Units 00:11 04:55 04:55 RBC 3.99 L (4.30-5.90) m/uL MCV 104.2 H (80.0-100.0) fL Lymphocytes # 0.5 L (1.0-4.8) k/uL ABG pCO2 (35-45) mmHg ABG pO2 (83-108) mmHg ABG HCO3 (21-25) mmol/L ABG Total CO2 (19-24) mmol/L Carbon Dioxide 33 H (22-30) mmol/L BUN 53 H (9-20) mg/dL Glucose 139 H (74-99) mg/dL POC Glucose (mg/dL) 120 H (75-99) mg/dL Magnesium 2.6 H (1.6-2.3) mg/dL 10/30/16 10/30/16 10/30/16 Range/Units 06:18 08:25 11:35 RBC (4.30-5.90) m/uL MCV (80.0-100.0) fL Lymphocytes # (1.0-4.8) k/uL ABG pCO2 51 H 58 H (35-45) mmHg ABG pO2 74 L (83-108) mmHg ABG HCO3 33 H 34 H (21-25) mmol/L ABG Total CO2 34 H 36 H (19-24) mmol/L Carbon Dioxide (22-30) mmol/L BUN (9-20) mg/dL Glucose (74-99) mg/dL POC Glucose (mg/dL) 125 H (75-99) mg/dL Magnesium (1.6-2.3) mg/dL - Imaging and Cardiology Chest x-ray: report reviewed Assessment and Plan Plan: Assessment Acute respiratory failure hyper As well as hypoxic respiratory failure secondary to COPD Sepsis secondary to hospital-acquired pneumonia right lower lobe on ceftriaxone Congestive heart failure chronic systolic dysfunction ejection fraction 35-40% Atrial fibrillation rate controlled Nicotine abuse Obesity Patient remains intubated Plan Hopeful on bleeding from ventilator tomorrow Continue consultation with Dr. Quarles and cardiology
[2016-10-30 19:11] LABS: Glucose,Whole Blood 116 mg/dL (75-99)
[2016-10-30] MEDS: RIVAROXABAN 10 MG TAB PO SCH ×2 (19:12→20:54)
[2016-10-30] MEDS: LATANOPROST 0.005% OPHTH DROPS 2.5 ML BTL BOTH EYES SCH (20:54)
[2016-10-31] MEDS ORDERED: PROPOFOL 50 ML IV ONE ×5 (00:14→06:51)
[2016-10-31] MEDS: PROPOFOL 500 MG in EMPTY BAG 1 BAG IV SCH ×8 (00:14→09:09)
[2016-10-31] MEDS: INSULIN LISPRO (humaLOG) 300 UNIT/3 ML VIAL SQ SCH ×4 (00:20→17:49)
[2016-10-31 00:22] LABS: Glucose,Whole Blood 126 mg/dL (75-99)
[2016-10-31] MEDS: methylPREDNISolone SOD SUCCI 125 MG/2 ML VIAL IV SCH ×4 (00:22→17:50)
[2016-10-31] MEDS: LEVALBUTEROL NEB (CONC) 1.25 MG/0.5 ML AMP INHALATION SCH ×6 (02:37→23:17)
[2016-10-31] MEDS: IPRATROPIUM 0.5 MG/2.5 ML NEBU INHALATION SCH ×6 (02:37→23:16)
[2016-10-31 04:41] LABS: Basophils % (A) 0 %; CH 33.3; CHCM 32.4; Eosinophils % (A) 1 %; HDW 2.41; HGB 12.5 gm/dL (13.0-17.5); Luc # (Auto) 0.06; Luc % (Auto) 1; Lymphocytes # (A) 0.4 k/uL (1.0-4.8); Lymphocytes % (A) 5 %; MCH 34.1 pg (25.0-35.0); MCHC 32.9 g/dL (31.0-37.0); MCV 103.4 fL (80.0-100.0); Macrocytosis Slight; Mean Platelet Volume 6.6; Monocytes # (A) 0.4 k/uL (0-1.0); Monocytes % (A) 6 %; Neutrophils # (A) 6.1 k/uL (1.3-7.7); Neutrophils % (A) 88 %; RBC 3.68 m/uL (4.30-5.90); RDW 13.6 % (11.5-15.5); WBC 6.9 k/uL (3.8-10.6); WBC (Perox) 7.16
[2016-10-31 04:54] LABS: Anion Gap 6 mmol/L; Blood Urea Nitrogen 56 mg/dL (9-20); Calcium 8.8 mg/dL (8.4-10.2); Carbon Dioxide 38 mmol/L (22-30); Chloride 98 mmol/L (98-107); Glucose 139 mg/dL (74-99); Magnesium 2.6 mg/dL (1.6-2.3); Non-African American GFR(MDRD) >60 (>60 ml/min/1.73 sqM); Phosphorous 4.4 mg/dL (2.5-4.5); Potassium 4.2 mmol/L (3.5-5.1); Sodium 142 mmol/L (137-145)
[2016-10-31 05:30] LABS: Glucose,Whole Blood 113 mg/dL (75-99)
[2016-10-31] MEDS: BUDESONIDE 0.5 MG/2 ML NEBU INHALATION SCH ×2 (07:39→19:30)
[2016-10-31 07:51] LABS: ABG Base Excess 12.7 mmol/L; ABG HCO3 37 mmol/L (21-25); ABG PCO2 46 mmHg (35-45); ABG PH 7.51 (7.35-7.45); ABG PO2 66 mmHg (83-108); ABG TCO2 38 mmol/L (19-24)
[2016-10-31] MEDS: CHLORHEXIDINE GLUCONATE 15 ML CUP MUCOUS MEM SCH ×2 (08:14→20:10)
[2016-10-31] MEDS: FUROSEMIDE 10 MG/ML 4 ML VIAL IV SCH ×2 (08:14→20:29)
[2016-10-31] MEDS: LISINOPRIL 2.5 MG TAB PO SCH (08:14)
[2016-10-31] MEDS: PANTOPRAZOLE 40 MG/10 ML VIAL IVP SCH (08:15)
[2016-10-31] MEDS: SPIRONOLACTONE 25 MG TAB PO SCH (08:15)
--- NOTE | 2016-10-31 08:16 | XR ---
EXAMINATION TYPE: XR chest 1V portable DATE OF EXAM: 10/31/2016 6:34 AM COMPARISON: Prior chest x-ray 30 October 2016 HISTORY: Intubated TECHNIQUE: Single frontal view of the chest is obtained. FINDINGS: Endotracheal tube, NG tube, left subclavian central venous catheter or overlying appropria te positions. There is some improvement in the interstitium, aeration within the lungs. No evident pn eumothorax. Cardiomediastinal silhouette, pulmonary vascularity and gorge not significantly changed. T here are overlying artifacts, cardiac leads. IMPRESSION: Improvement in patient's volume status, aeration. Basilar effusions persist. There may b e associated atelectasis versus edema, pneumonia not excluded.
[2016-10-31] MEDS: METOPROLOL TARTRATE 25 MG TAB PO SCH ×2 (09:00→20:30)
[2016-10-31] MEDS: cefTRIAXone 2,000 MG in SODIUM CHLORIDE 0.9% 100 ML IVPB SCH (11:13)
[2016-10-31 11:15] LABS: Glucose,Whole Blood 107 mg/dL (75-99)
--- NOTE | 2016-10-31 11:28 | P.PN ---
Subjective Principal diagnosis: Acute hypoxic and hypercapnic respiratory failure secondary to acute COPD exacerbation. 66-year-old male patient with advanced COPD and history of chronic extensive smoking presented to the [facility] problem with respiratory failure. The patient apparently was doing poorly over the past few weeks. He was planning to see me in the office next week and meanwhile he was seeing his primary care physician. One point was noted to have a pulse ox of 83% and he was placed on home O2. The patient was getting progressively more short of breath and earlier this morning he was brought into the hospital through EMS for respiratory failure. In the ED he was briefly placed on a BiPAP which she failed and the patient was becoming more obtunded and agitated and short of breath and for that reason he was intubated and placed on a mechanical ventilator. Note that his blood gases while being on 100% nonrebreather showed a pH of 7.2 with a pCO2 of 104 and pO2 of 102. Note that at time of arrival the patient was also in a flutter with rapid ventricular response at the rate of 160. and he was started on Cardizem drip at the rate of 10 mg an hour after being given a bolus of 20 mg IV push. On 10/27/2016 the patient is being seen in follow-up. The patient remains intubated on mechanical ventilator. The patient remains sedated with Diprivan. No paralytics was utilized. The patient and assist control mode at the rate of 18, tidal volume 400, FiO2 of 50% and a PEEP of 5. Peak airway pressures around 34 with left toe pressure of 17. Also PEEP is at 6. The peak flow is at 70. The I:E ratio is 1 to 4. The chest x-ray remains essentially stable and the ET tube is in a good location. The blood gas showed a pH of 7.33 with a pCO2 of 57 and pO2 of 91. On examination the patient is still having significant amount of looseness for secretions being suctioned from the endotracheal tube. The patient is also having significant extremity wheezes on examination. Hemodynamically, the patient was on pressors overnight as the patient became hypotensive postintubation. He was started on fluids and norepinephrine infusion which was discontinued this morning. His cardiac rhythm remains sinus and there is no evidence of any throughout the rhythm for now. Cardiac enzymes were minimally elevated with troponins of 0.05 max. Patient was reevaluated today on 10/28/2016, he remains on mechanical ventilation , however I was able to cut down his FiO2 to 45%, the rest of the ventilator settings remained the same. His peak airway pressure is unchanged, and his plateau pressure is also unchanged. Patient remains sedated on propofol, did not require any muscle paralytic agents. Chest x-ray however is showing evidence of by basilar pneumonia, possibility of slight interstitial edema is not entirely ruled out. However I believe this is mostly pneumonia involving the lower lobes, most likely hospital acquired pneumonia. Could even be related to aspiration. Patient was reevaluated today on 10/29/2016, he remains on mechanical ventilation , his tidal volume today was increased because of his ABG showed a pO2 of 89 pCO2 of 61 and pH of 7.28. Chest x-ray is showing evidence of mild interstitial edema, and that is not surprising considering his echocardiogram showing LV dysfunction. Patient is now in sinus rhythm, he is hemodynamically stable, not requiring any norepinephrine. Today I added Lasix 40 mg IV push every 12 hours, and we will give him a chance to wake up today off sedation, and assess his mental status. But clearly the patient is not ready for weaning at this point. His sputum was positive for Streptococcus pneumonia, the sensitivity on the organism was noted, patient is now on Levaquin, and I will go ahead and add Rocephin. Patient remains on tube feeding for nutritional support, remains on GI and DVT prophylaxis. After reviewing his chest x-ray today, I recommended adding diuretics. Patient was reevaluated today on 10/30/2016, he remains on mechanical ventilation , ABG showed a pO2 of 74, a CO2 of 51 pH of 7.42, and this was on assist control mode of mechanical ventilation. Patient was awakened today, propofol was placed on hold, and we assess his mental status, patient seems to be appropriate, but generally weak, and I went ahead and give him a trial of weaning utilizing pressure support of 8 and initially IMV then he went to pressure support of 8 and CPAP. Patient did very well initially, however about one hour into the weaning, he was noted to have significant weakness, lethargy, and he was gagging on the endotracheal tube. Repeat ABG was not unreasonable, pO2 was 85 pCO2 was 58 pH was 7.39. However the patient was noted to be more tachypneic, a bit tachycardic, and could not maintain a good eye contact while I was there at bedside. I felt that the patient is about ready to be extubated , but not very yet. He is almost close. Hence I have decided to give him another day of mechanical ventilation, and I did not proceed to any further weaning trials. We'll try to do this again tomorrow, and if he continues to do well may consider extubating the patient tomorrow. Chest x-ray is showing improvement in his pulmonary edema, he continues to respond well to diuretics. Remains on antibiotics, and on bronchodilators as well as diuretics. Reevaluated today on 10/31/2016, remains on mechanical ventilation, ABG is practically about the same, ventilator settings are the same, however I increased his FiO2 to 50%. Patient will be switched today to IMV and pressure support, and I will gradually switch IMV to CPAP and pressure support. Patient is awake, follows simple instructions, chest x-ray is showing definite improvement, and his lab studies today were all reviewed. His WBC count is 6.9 hemoglobin is 12.5. ABG showed a pO2 of 66 pCO2 of 46 pH of 7.51. Hence his FiO2 was increased to 50%. Chest x-ray showed better aeration of the bases of his lungs, small effusions noted. Minimal atelectasis and minimal edema noted. Pneumonia is not excluded. Objective - Vital Signs Vital signs: Vital Signs Temp 97.6 F 10/31/16 11:00 Pulse 77 10/31/16 11:00 Resp 16 10/31/16 11:00 BP 137/73 10/31/16 11:00 Pulse Ox 93 L 10/31/16 11:00 Intake & Output 10/30/16 10/31/16 10/31/16 18:59 06:59 18:59 Intake Total 584.917 918.867 541.8 Output Total 3710 2320 1275 Balance -3125.083 -1401.133 -733.2 Weight 98.7 kg 95.2 kg 95.2 kg Intake: IV 160 240 60 0.9 KVO/Carrier 160 240 60 Intake, IV Titration 244.917 498.867 321.8 Amount Propofol 50 ml As IV .STK 207.2 76.8 [facility] Rx#:[id number] Propofol 500 mg In Empty 144.917 291.667 145 Bag 1 bag @ Titrate IV . Q0M [facility] Rx#:[id number] cefTRIAXone 2,000 mg In 100 100 Sodium Chloride 0.9% 100 ml @ 100 mls/hr IVPB DAILY@1200 [facility] Rx#: [id number] Oral 0 0 Tube Feeding 180 180 100 Other 60 Output: Urine 3710 2320 1275 Other: Voiding Method Indwelling Catheter Indwelling Catheter Indwelling Catheter # Bowel Movements 1 1 ABP, PAP, CO, CI - Last Documented Arterial Blood Pressure 139/61 - Exam Physical Exam: Revealed a 66-year-old obese, on mechanical ventilation. Endotracheal tube is intact. HEENT:[Neck is supple.] [No neck masses.] [No thyromegaly.] [No JVD.] Chest: [Crackles and rhonchi are noted at the bases. Cardiac Exam: Regular rhythm. [Normal S1 and S2, no S3 gallop, 2/6 systolic murmur throughout the precordium. Abdomen: [Soft, nontender, no megaly, no rebound, no guarding, normal bowel sounds.] Extremities: [No clubbing, trace of bipedal edema, no cyanosis.] Neurological Exam: Generally weak, otherwise no focal neurologic deficit. - Labs CBC & Chem 7: 10/31/16 04:35 10/31/16 04:35 Labs: Abnormal Lab Results - Last 24 Hours (Table) 10/30/16 10/30/16 10/31/16 Range/Units 11:35 19:09 00:20 RBC (4.30-5.90) m/uL Hgb (13.0-17.5) gm/dL Hct (39.0-53.0) % MCV (80.0-100.0) fL Lymphocytes # (1.0-4.8) k/uL ABG pH (7.35-7.45) ABG pCO2 58 H (35-45) mmHg ABG pO2 (83-108) mmHg ABG HCO3 34 H (21-25) mmol/L ABG Total CO2 36 H (19-24) mmol/L Carbon Dioxide (22-30) mmol/L BUN (9-20) mg/dL Glucose (74-99) mg/dL POC Glucose (mg/dL) 116 H 126 H (75-99) mg/dL Magnesium (1.6-2.3) mg/dL 10/31/16 10/31/16 10/31/16 Range/Units 04:35 04:35 05:27 RBC 3.68 L (4.30-5.90) m/uL Hgb 12.5 L (13.0-17.5) gm/dL Hct 38.0 L (39.0-53.0) % MCV 103.4 H (80.0-100.0) fL Lymphocytes # 0.4 L (1.0-4.8) k/uL ABG pH (7.35-7.45) ABG pCO2 (35-45) mmHg ABG pO2 (83-108) mmHg ABG HCO3 (21-25) mmol/L ABG Total CO2 (19-24) mmol/L Carbon Dioxide 38 H (22-30) mmol/L BUN 56 H (9-20) mg/dL Glucose 139 H (74-99) mg/dL POC Glucose (mg/dL) 113 H (75-99) mg/dL Magnesium 2.6 H (1.6-2.3) mg/dL 10/31/16 10/31/16 Range/Units 07:30 11:12 RBC (4.30-5.90) m/uL Hgb (13.0-17.5) gm/dL Hct (39.0-53.0) % MCV (80.0-100.0) fL Lymphocytes # (1.0-4.8) k/uL ABG pH 7.51 H (7.35-7.45) ABG pCO2 46 H (35-45) mmHg ABG pO2 66 L (83-108) mmHg ABG HCO3 37 H (21-25) mmol/L ABG Total CO2 38 H (19-24) mmol/L Carbon Dioxide (22-30) mmol/L BUN (9-20) mg/dL Glucose (74-99) mg/dL POC Glucose (mg/dL) 107 H (75-99) mg/dL Magnesium (1.6-2.3) mg/dL Assessment and Plan Plan: 1 acute hypercapnic respiratory failure secondary to COPD exacerbation. The patient is in acute hypercapnic respiratory failure with significant respiratory acidosis the time of arrival, failed BiPAP therapy, subsequently intubated and placed on a mechanical ventilator. 2 bibasilar airspace disease, consistent with pneumonia, secondary to Streptococcus pneumoniae as noted on the sputum cultures. 3 shortness of breath and respiratory failure secondary to above, also secondary to some component of cardiomyopathy, LV dysfunction, and congestive heart failure. Responded well to diuretics 4 a flutter with rapid ventricular response, patient is today in sinus rhythm. Atrial flutter resolved. 5 nicotine addiction/tobacco dependence syndrome 6 history of severe chronic hypoxic respiratory failure secondary to COPD. 7 abnormal echocardiogram suggestive of LV dysfunction and cardiomyopathy. 8 acute congestive heart failure secondary to LV dysfunction responding well to diuretics. Recommendation: Continue present treatment plan including bronchodilators, empiric antibiotics coverage, sputum is positive for Streptococcus pneumonia, patient will remain on Rocephin . his initial chest x-ray on admission was negative, but follow-up chest x-ray is showing pneumonia. continue GI and DVT prophylaxis continue nutritional support, and we will follow closely. My plan today is to give the patient another weaning trial using pressure support and CPAP, and depending on how the patient tolerates the weaning trial, we will proceed accordingly. I discussed his condition with family members at bedside. Critical care time is 35 minutes. Time with Patient: Greater than 30
[2016-10-31] MEDS: CISATRACURIUM 200 MG in SODIUM CHLORIDE 0.9% 180 ML IV SCH (12:41)
[2016-10-31 13:06] LABS: ABG PH 7.51 (7.35-7.45)
[2016-10-31 13:07] LABS: ABG Base Excess 13.6 mmol/L; ABG HCO3 38 mmol/L (21-25); ABG PCO2 48 mmHg (35-45); ABG PO2 73 mmHg (83-108); ABG TCO2 39 mmol/L (19-24)
[2016-10-31] MEDS: RIVAROXABAN 10 MG TAB PO SCH (17:43)
[2016-10-31 17:50] LABS: Glucose,Whole Blood 97 mg/dL (75-99)
[2016-10-31] MEDS: LATANOPROST 0.005% OPHTH DROPS 2.5 ML BTL BOTH EYES SCH (20:29)
--- NOTE | 2016-10-31 22:54 | PN ---
DATE OF SERVICE: 10/31/2016 This 66-year-old gentleman, admitted with COPD, acute exacerbation, as well as hypoxic hypercapnic respiratory failure secondary to COPD exacerbation, was also mechanically ventilated. The patient has been extubated at this time. The patient is currently on BiPAP at this time. Sensorium is definitely improved. The patient also had bibasilar airspace disease and pneumonia. Dr. Rowley is following the patient closely. Patient also had atrial flutter with a fast ventricular rate. The most recent chest x-ray done today showed significant improvement in volume status. Other labs showed hemoglobin is 12.5 ABGs showed some alkalosis. Past medical history reviewed. Review of systems could not be taken; the patient is still on BiPAP. The patient had change in mental status also. Current medications are reviewed and include: 1. Tylenol 650 q.4 p.r.n. 2. Pulmicort 0.5 b.i.d. 3. Rocephin 1 gram daily. 4. Chlorhexidine. 5. Lasix 40 mg b.i.d. 6. Dilaudid. 7. Humalog. 8. Xalatan. 9. Xopenex. 10. Zestril. 11. Solu-Medrol. 12. Lopressor. 13. Narcan. 14. Xarelto. 15. Protonix. PHYSICAL EXAMINATION: Patient is alert and oriented x3. Pulse is 73, blood pressure 140/81, respiratory rate 16, temperature 97.7, pulse ox 93% on BiPAP. BiPAP settings are noted. HEENT: Conjunctivae normal. NECK: No jugular venous distention. CARDIOVASCULAR SYSTEM: S1, S2 muffled. RESPIRATORY SYSTEM: Breath sounds diminished at the bases. Bilateral scattered rhonchi and crackles. ABDOMEN: Soft, nontender. No mass palpable. LEGS: No edema. No swelling. NERVOUS SYSTEM: Higher functions as mentioned earlier. Moves all 4 limbs. Mild diffuse weakness present. LYMPHATICS: No lymph node palpable in neck, axilla or groin. SKIN: No ulcer, rash, bleeding. LABS: WBC 6.9, hemoglobin 12.5. ABG noted. Glucose 139. ASSESSMENT: 1. Chronic obstructive pulmonary disease, acute exacerbation, with acute bibasilar pneumonia, possibly Strep pneumoniae on blood cultures, with sepsis, and acute hypoxic hypercarbic respiratory failure, status post mechanical ventilation. 2. Currently on BiPAP. 3. Change in mental status, metabolic encephalopathy, multifactorial. 4. Congestive heart failure, acute exacerbation, with acute on chronic systolic dysfunction secondary to cardiomyopathy. 5. History of nicotine dependence. 6. Atrial flutter with rapid ventricular rate. 7. Chronic hypoxic respiratory failure, on home oxygen. 8. History of chronic obstructive pulmonary disease. 9. History of obesity. 10. History of glaucoma. 11. History of nicotine dependence. 12. On Xarelto. 13. FULL CODE. RECOMMENDATIONS AND DISCUSSION: In this 66-year-old gentleman who presented with multiple complex medical issues, we will monitor the patient closely, continue the current medications, continue with symptomatic treatment. Otherwise, I recommend continuing with the intensive bronchodilator treatment, empiric antibiotics. Closely follow with Dr. Rowley. DVT prophylaxis. The patient will be started on Xarelto. Monitor the blood sugars closely. Guarded prognosis because of multiple complex medical issues. Discussed with the family at length, who understands and agrees. Further recommendations to follow.
[2016-11-01 00:58] LABS: Glucose,Whole Blood 111 mg/dL (75-99)
[2016-11-01] MEDS: INSULIN LISPRO (humaLOG) 300 UNIT/3 ML VIAL SQ SCH ×5 (01:15→21:12)
[2016-11-01] MEDS: methylPREDNISolone SOD SUCCI 125 MG/2 ML VIAL IV SCH ×3 (02:56→11:14)
[2016-11-01] MEDS: LEVALBUTEROL NEB (CONC) 1.25 MG/0.5 ML AMP INHALATION SCH ×5 (03:15→20:05)
[2016-11-01] MEDS: IPRATROPIUM 0.5 MG/2.5 ML NEBU INHALATION SCH ×5 (03:15→20:05)
[2016-11-01 04:59] LABS: Basophils % (A) 0 %; CH 33.6; CHCM 33.4; Eosinophils # (A) 0.1 k/uL (0-0.7); Eosinophils % (A) 1 %; HCT 41.4 % (39.0-53.0); HGB 13.3 gm/dL (13.0-17.5); Luc # (Auto) 0.13; Luc % (Auto) 1; Lymphocytes # (A) 0.7 k/uL (1.0-4.8); Lymphocytes % (A) 7 %; MCH 32.6 pg (25.0-35.0); MCHC 32.2 g/dL (31.0-37.0); MCV 101.3 fL (80.0-100.0); Macrocytosis Slight; Mean Platelet Volume 7.7; Monocytes # (A) 0.9 k/uL (0-1.0); Monocytes % (A) 10 %; Neutrophils % (A) 81 %; RBC 4.09 m/uL (4.30-5.90); RDW 13.6 % (11.5-15.5); WBC 9.9 k/uL (3.8-10.6); WBC (Perox) 10.08
[2016-11-01 05:12] LABS: ALT 48 U/L (21-72); AST 23 U/L (17-59); Alkaline Phosphatase 60 U/L (38-126); Blood Urea Nitrogen 54 mg/dL (9-20); Calcium 8.8 mg/dL (8.4-10.2); Chloride 97 mmol/L (98-107); Glucose 105 mg/dL (74-99); Magnesium 2.4 mg/dL (1.6-2.3); Non-African American GFR(MDRD) >60 (>60 ml/min/1.73 sqM); Phosphorous 3.4 mg/dL (2.5-4.5); Potassium 3.2 mmol/L (3.5-5.1); Sodium 146 mmol/L (137-145); Total Bilirubin 1.1 mg/dL (0.2-1.3); Total Protein 5.7 g/dL (6.3-8.2)
[2016-11-01 05:18] LABS: Anion Gap 6 mmol/L
[2016-11-01 05:22] LABS: Carbon Dioxide 43 mmol/L (22-30)
[2016-11-01] MEDS ORDERED: Potassium Replacement Protocol 1 EACH MISC MISCELLANE PRN ×2 (05:58→06:23)
[2016-11-01] MEDS ORDERED: POTASSIUM CHLORIDE 10 MEQ, LIDOCAINE 2% INJ 10 MG in SODIUM CHLORIDE 0.9% 100 ML IV SCH (06:00)
[2016-11-01] MEDS ORDERED: POTASSIUM CHLORIDE 20 MEQ in WATER FOR INJECTION 1 100ML.BAG IVPB ONE (06:23)
[2016-11-01 06:44] LABS: Glucose,Whole Blood 95 mg/dL (75-99)
[2016-11-01] MEDS: BUDESONIDE 0.5 MG/2 ML NEBU INHALATION SCH ×2 (07:06→20:05)
[2016-11-01] MEDS: CHLORHEXIDINE GLUCONATE 15 ML CUP MUCOUS MEM SCH (08:19)
--- NOTE | 2016-11-01 08:20 | XR ---
EXAMINATION TYPE: XR chest 1V portable DATE OF EXAM: 11/01/2016 6:49 AM HISTORY: Catheter placement. REFERENCE: Previous study dated 10/31/2016. FINDINGS: The patient has been extubated. The patient is ND tube is been removed. A left subclavian c atheter remains in place. Its tip is in the superior vena cava. There is bibasilar airspace disease. There are small, bilateral effusions. Heart size is upper limits of normal. IMPRESSION: 1. CONTINUING BIBASILAR AIRSPACE DISEASE. 2. SMALL, BILATERAL EFFUSIONS.
[2016-11-01] MEDS: SPIRONOLACTONE 25 MG TAB PO SCH (08:42)
[2016-11-01] MEDS: METOPROLOL TARTRATE 25 MG TAB PO SCH ×3 (08:42→21:12)
[2016-11-01] MEDS: LISINOPRIL 2.5 MG TAB PO SCH (08:42)
[2016-11-01] MEDS: PANTOPRAZOLE 40 MG/10 ML VIAL IVP SCH (08:42)
[2016-11-01] MEDS: FUROSEMIDE 10 MG/ML 4 ML VIAL IV SCH ×2 (08:48→10:33)
--- NOTE | 2016-11-01 10:55 | P.PN ---
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 The patient was found to be in acute respiratory distress. He is known to have severe COPD. Initially the patient was put on BiPAP without any improvement. Subsequently he started becoming agitated and more hypoxic. At that point he was intubated and placed on ventilator. We get involved in the care of the patient because he went into an atrial flutter with RVR. Subsequently the patient was started on amiodarone IV and converted into normal sinus mechanism. Beside that the cardiac enzymes were checked and came in to be slightly abnormal. The family states that the patient did not have any symptoms of chest pain or chest discomfort. Currently the patient is in normal sinus mechanism with a controlled heart rate. The patient continues to be hemodynamically stable and he's off Levophed. He underwent an echocardiogram which showed cardiomyopathy. Currently the patient is on maximize medical treatment for the cardiomyopathy. I am going to increase the dose of metoprolol for better heart rate control. Objective - Vital Signs Vital signs: Vital Signs Temp 98.2 F 11/01/16 08:00 Pulse 98 11/01/16 10:00 Resp 40 H 11/01/16 10:00 BP 135/74 11/01/16 10:00 Pulse Ox 94 L 11/01/16 10:00 Intake & Output 10/31/16 11/01/16 11/01/16 18:59 06:59 18:59 Intake Total 681.8 240 80 Output Total 2049 3074 425 Balance -1368.2 -0815 -345 Weight 95.2 kg 89.4 kg Intake: IV 200 240 80 0.9 KVO/Carrier 200 240 80 Intake, IV Titration 321.8 Amount Propofol 50 ml As IV .STK 76.8 [facility] Rx#:[id number] Propofol 500 mg In Empty 145 Bag 1 bag @ Titrate IV . Q0M [facility] Rx#:[id number] cefTRIAXone 2,000 mg In 100 Sodium Chloride 0.9% 100 ml @ 100 mls/hr IVPB DAILY@1200 [facility] Rx#: [id number] Oral 0 Tube Feeding 100 Other 60 Output: Urine 20495 425 Other: Voiding Method Indwelling Catheter Indwelling Catheter Indwelling Catheter # Bowel Movements 1 ABP, PAP, CO, CI - Last Documented Arterial Blood Pressure 177/68 - Constitutional General appearance: Present: no acute distress - Respiratory Respiratory: bilateral: CTA - Cardiovascular Rhythm: regular Heart sounds: normal: S1, S2 - Labs CBC & Chem 7: 11/01/16 04:53 11/01/16 04:53 Labs: Abnormal Lab Results - Last 24 Hours (Table) 10/31/16 10/31/16 11/01/16 Range/Units 11:12 12:56 00:55 RBC (4.30-5.90) m/uL MCV (80.0-100.0) fL Neutrophils # (1.3-7.7) k/uL Lymphocytes # (1.0-4.8) k/uL ABG pH 7.51 H (7.35-7.45) ABG pCO2 48 H (35-45) mmHg ABG pO2 73 L (83-108) mmHg ABG HCO3 38 H (21-25) mmol/L ABG Total CO2 39 H (19-24) mmol/L Sodium (137-145) mmol/L Potassium (3.5-5.1) mmol/L Chloride (98-107) mmol/L Carbon Dioxide (22-30) mmol/L BUN (9-20) mg/dL Glucose (74-99) mg/dL POC Glucose (mg/dL) 107 H 111 H (75-99) mg/dL Magnesium (1.6-2.3) mg/dL Total Protein (6.3-8.2) g/dL Albumin (3.5-5.0) g/dL 11/01/16 11/01/16 Range/Units 04:53 04:53 RBC 4.09 L (4.30-5.90) m/uL MCV 101.3 H (80.0-100.0) fL Neutrophils # 8.0 H (1.3-7.7) k/uL Lymphocytes # 0.7 L (1.0-4.8) k/uL ABG pH (7.35-7.45) ABG pCO2 (35-45) mmHg ABG pO2 (83-108) mmHg ABG HCO3 (21-25) mmol/L ABG Total CO2 (19-24) mmol/L Sodium 146 H (137-145) mmol/L Potassium 3.2 L (3.5-5.1) mmol/L Chloride 97 L (98-107) mmol/L Carbon Dioxide 43 H* (22-30) mmol/L BUN 54 H (9-20) mg/dL Glucose 105 H (74-99) mg/dL POC Glucose (mg/dL) (75-99) mg/dL Magnesium 2.4 H (1.6-2.3) mg/dL Total Protein 5.7 L (6.3-8.2) g/dL Albumin 3.2 L (3.5-5.0) g/dL Assessment and Plan Plan: Assessment #1 paroxysmal atrial fibrillation/atrial flutter #2 acute respiratory failure #3 COPD exacerbation #4 cardiomyopathy Plan #1 increase the dose of metoprolol #2 continue anticoagulation #3 follow-up with the patient
[2016-11-01] MEDS: cefTRIAXone 2,000 MG in SODIUM CHLORIDE 0.9% 100 ML IVPB SCH (11:14)
--- NOTE | 2016-11-01 11:39 | PN ---
DATE OF SERVICE: 10/31/2016 BRIEF HISTORY: This is a pleasant 66-year-old gentleman with known COPD and chronic respiratory failure, who was admitted to the hospital with acute respiratory failure secondary to chronic obstructive pulmonary disease exacerbation. His hospital course was complicated by atrial flutter/atrial fibrillation and the patient converted into normal sinus mechanism and he has been maintaining normal sinus mechanism. He underwent an echocardiogram which showed cardiomyopathy with an ejection fraction between 30 to 55%. Clinically the patient continues to be intubated and continues to be on ventilator. Hemodynamically he continues to be stable. He has been maintaining normal sinus mechanism. He was started on beta tom, ALFIE inhibitor as well as on Aldactone. Beside that he also was started on anticoagulation using Xarelto. PHYSICAL EXAMINATION: GENERAL APPEARANCE: The patient looks in mild respiratory distress. Vitals showed heart rate 68 beats per minute, respiratory rate 28 beats per minute, blood pressure is 146/85, saturation is 95%. Cardiovascular examination shows regular rate and rhythm. Respiratory examination showed bilateral expiratory wheezing. Blood work from today showed hemoglobin of 12.5, platelet count of 2.93, WBC 6.9, his sodium is 142, potassium 4.2, creatinine 0.80, GFR of more than 60. ASSESSMENT: 1. Acute respiratory failure. 2. Chronic obstructive pulmonary disease exacerbation. 3. Congestive heart failure exacerbation secondary to systolic dysfunction. 4. Paroxysmal atrial fibrillation and the patient has been maintaining normal sinus mechanism. 5. Cardiomyopathy. Unknown if it is ischemic or nonischemic at this point. PLAN: 1. Continue the current medical treatment which includes metoprolol, Lisinopril, as well as Aldactone. 2. Continue anticoagulation using Xarelto. 3. The patient is currently on Lasix IV and we will continue that. 4. Continue monitor the kidney function and electrolytes. 5. Follow up with the patient.
[2016-11-01 12:45] LABS: Glucose,Whole Blood 98 mg/dL (75-99)
--- NOTE | 2016-11-01 14:03 | P.PN ---
Subjective Principal diagnosis: Acute hypoxic and hypercapnic respiratory failure secondary to acute COPD exacerbation. 66-year-old male patient with advanced COPD and history of chronic extensive smoking presented to the [facility] problem with respiratory failure. The patient apparently was doing poorly over the past few weeks. He was planning to see me in the office next week and meanwhile he was seeing his primary care physician. One point was noted to have a pulse ox of 83% and he was placed on home O2. The patient was getting progressively more short of breath and earlier this morning he was brought into the hospital through EMS for respiratory failure. In the ED he was briefly placed on a BiPAP which she failed and the patient was becoming more obtunded and agitated and short of breath and for that reason he was intubated and placed on a mechanical ventilator. Note that his blood gases while being on 100% nonrebreather showed a pH of 7.2 with a pCO2 of 104 and pO2 of 102. Note that at time of arrival the patient was also in a flutter with rapid ventricular response at the rate of 160. and he was started on Cardizem drip at the rate of 10 mg an hour after being given a bolus of 20 mg IV push. Reevaluated today on 10/31/2016, remains on mechanical ventilation, ABG is practically about the same, ventilator settings are the same, however I increased his FiO2 to 50%. Patient will be switched today to IMV and pressure support, and I will gradually switch IMV to CPAP and pressure support. Patient is awake, follows simple instructions, chest x-ray is showing definite improvement, and his lab studies today were all reviewed. His WBC count is 6.9 hemoglobin is 12.5. ABG showed a pO2 of 66 pCO2 of 46 pH of 7.51. Hence his FiO2 was increased to 50%. Chest x-ray showed better aeration of the bases of his lungs, small effusions noted. Minimal atelectasis and minimal edema noted. Pneumonia is not excluded. Reevaluated today on 11/01/2016, patient was extubated yesterday, and he seems to have tolerated the extubation well. He was initially extubated to BiPAP, and he was on BiPAP overnight. Today he is down to a nasal cannula at 1.5 L, his O2 saturations are in the low 90s, and the patient is feeling much better, breathing a lot easier. All his labs were reviewed, his WBC count is 9.9, hemoglobin is 13.3, his potassium is low being corrected as per protocol, his BUN is 54, hence I will stop diuretics for now, and we'll slowly hydrate the patient. I plan to transfer the patient out of the ICU today. He remains in normal sinus rhythm. Patient will have BiPAP at bedside in case if he develops any worsening pulmonary status or hypercapnia. Objective - Vital Signs Vital signs: Vital Signs Temp 97.9 F 11/01/16 12:00 Pulse 82 11/01/16 12:00 Resp 27 H 11/01/16 12:00 BP 122/71 11/01/16 12:00 Pulse Ox 94 L 11/01/16 12:00 Intake & Output 10/31/16 11/01/16 11/01/16 18:59 06:59 18:59 Intake Total 681.8 240 140 Output Total 2049 3075 670 Balance -1368.2 -2835 -530 Weight 95.2 kg 89.4 kg Intake: IV 200 240 140 0.9 KVO/Carrier 200 240 140 Intake, IV Titration 321.8 Amount Propofol 50 ml As IV .STK 76.8 -MED [facility] Rx#:[id number] Propofol 500 mg In Empty 145 Bag 1 bag @ Titrate IV . Q0M [facility] Rx#:[id number] cefTRIAXone 2,000 mg In 100 Sodium Chloride 0.9% 100 ml @ 100 mls/hr IVPB DAILY@1200 [facility] Rx#: [id number] Oral 0 Tube Feeding 100 Other 60 Output: Urine 2049 3075 670 Other: Voiding Method Indwelling Catheter Indwelling Catheter Indwelling Catheter # Bowel Movements 1 ABP, PAP, CO, CI - Last Documented Arterial Blood Pressure 177/68 - Exam Physical Exam: Revealed a 66-year-old obese, in no distress, presently on nasal cannula at 1.5 L HEENT:[Neck is supple.] [No neck masses.] [No thyromegaly.] [No JVD.] Chest: [Diminished breath sounds at the bases, minimal crackles at the left base. Cardiac Exam: Regular rhythm. [Normal S1 and S2, no S3 gallop, 2/6 systolic murmur throughout the precordium. Abdomen: [Soft, nontender, no megaly, no rebound, no guarding, normal bowel sounds.] Extremities: [No clubbing, trace of bipedal edema, no cyanosis.] Neurological Exam: No gross focal neurologic deficit - Labs CBC & Chem 7: 11/01/16 04:53 11/01/16 10:45 Labs: Abnormal Lab Results - Last 24 Hours (Table) 11/01/16 11/01/16 11/01/16 Range/Units 00:55 04:53 04:53 RBC 4.09 L (4.30-5.90) m/uL MCV 101.3 H (80.0-100.0) fL Neutrophils # 8.0 H (1.3-7.7) k/uL Lymphocytes # 0.7 L (1.0-4.8) k/uL Sodium 146 H (137-145) mmol/L Potassium 3.2 L (3.5-5.1) mmol/L Chloride 97 L (98-107) mmol/L Carbon Dioxide 43 H* (22-30) mmol/L BUN 54 H (9-20) mg/dL Glucose 105 H (74-99) mg/dL POC Glucose (mg/dL) 111 H (75-99) mg/dL Magnesium 2.4 H (1.6-2.3) mg/dL Total Protein 5.7 L (6.3-8.2) g/dL Albumin 3.2 L (3.5-5.0) g/dL Assessment and Plan Plan: 1 acute hypercapnic respiratory failure secondary to COPD exacerbation. The patient is in acute hypercapnic respiratory failure with significant respiratory acidosis the time of arrival, failed BiPAP therapy, subsequently intubated and placed on a mechanical ventilator. Patient was extubated on 2016, and he tolerated extubation well so far. Will be placed on BiPAP intermittently especially at night when he sleeps. 2 bibasilar airspace disease, consistent with pneumonia, secondary to Streptococcus pneumoniae as noted on the sputum cultures. Patient remains on Rocephin 3 shortness of breath and respiratory failure secondary to above, also secondary to some component of cardiomyopathy, LV dysfunction, and congestive heart failure. Responded well to diuretics. However considering his renal profile I will go ahead and discontinue Lasix for now, and we'll correct his electrolytes and hypokalemia accordingly. 4 a flutter with rapid ventricular response, patient is today in sinus rhythm. Atrial flutter resolved. 5 nicotine addiction/tobacco dependence syndrome 6 history of severe chronic hypoxic respiratory failure secondary to COPD. 7 abnormal echocardiogram suggestive of LV dysfunction and cardiomyopathy. 8 acute congestive heart failure secondary to LV dysfunction responding well to diuretics. Recommendation: Continue present treatment plan including bronchodilators, antibiotics, GI and DVT prophylaxis, BiPAP as needed, oxygen as tolerated and will titrate according to O2 saturation. Patient will be transferred out of the ICU today. Discussed his condition with his family at bedside. Critical care time is 35 minutes. Time with Patient: Greater than 30
[2016-11-01] MEDS: methylPREDNISolone SOD SUCCI 40 MG/ML 1 ML VIAL IVP SCH (17:01)
[2016-11-01] MEDS: RIVAROXABAN 10 MG TAB PO SCH (17:02)
[2016-11-01 17:07] LABS: Glucose,Whole Blood 100 mg/dL (75-99)
--- NOTE | 2016-11-01 19:30 | PN ---
DATE OF SERVICE: 11/01/2016 This 66-year-old gentleman admitted with COPD acute exacerbation, also had bibasilar pneumonia. The blood cultures are positive for the sputum cultures are positive for Strep pneumonia which is sensitive to penicillin. The patient is on broad-spectrum IV antibiotics. The patient is on bronchodilators also. The patient was mechanically intubated. Currently extubated. Patient on BiPAP yesterday. Currently the patient tolerating nasal cannula. The patient also had history of bulimia. The patient is on bronchodilators and Xarelto as well as Rocephin also, a tapering doses IV steroids. Past medical history reviewed. REVIEW OF SYSTEMS: CARDIOVASCULAR: As mentioned earlier. RESPIRATORY: As mentioned earlier. GI: No nausea. : No dysuria. Nervous system: No numbness or weakness. Current medications are reviewed and include: 1. Tylenol 650 q.4 p.r.n. 2. Pulmicort 2.5 mg b.i.d. 3. Rocephin. 4. Atrovent. 5. Xalatan. 6. Xopenex. 7. Zestril. 8. Solu-Medrol. 9. Narcan. 10. Protonix. 11. Xarelto. 12. Aldactone. PHYSICAL EXAMINATION: The patient is alert and oriented times three. Pulse 81, blood pressure 130/83, respirations 18, temperature 98 degrees, pulse ox 98% on 1.5 liters. GENERAL: HEENT: Conjunctivae normal. Oral mucosa moist. NECK: No jugular venous distention. No carotid bruits. No lymph node enlargement. CARDIOVASCULAR: S1, S2 muffled. No S3, no S4. RESPIRATORY: Breath sounds diminished at the bases. Bilateral scattered rhonchi and crackles. Expiratory wheezing also present. Breathing efforts increased. ABDOMEN: Soft, nontender. No mass palpable. LEGS: No edema. No swelling. CENTRAL NERVOUS SYSTEM: Higher functions as mentioned earlier. Moves all four limbs. No focal deficits. LYMPHATICS: No lymph nodes palpable in the neck, axillae or groin. SKIN: No ulcer, rash or bleeding. LABS: WBC 9.2, hemoglobin 13.3, sodium 142, potassium 3.2. Magnesium is 2.4. ASSESSMENT: 1. Chronic obstructive pulmonary disease, acute exacerbation, with acute bibasilar pneumonia, possibly strep pneumonia on sputum culture with possible sepsis present on admission with acute hypoxic hypercarbic respiratory failure, status post mechanical ventilation. 2. Status post BiPAP currently on nasal cannula. 3. Change in mental status, metabolic encephalopathy, multifactorial. 4. Congestive heart failure, acute exacerbation, with acute on chronic systolic dysfunction secondary to cardiomyopathy. 5. History of nicotine dependence. 6. Atrial flutter with rapid ventricular rate present on admission. 7. Chronic respiratory failure on home oxygen. 8. Chronic obstructive pulmonary disease. 9. History of obesity. 10. History of glaucoma. 11. History of nicotine dependence. 12. On Xarelto. 13. FULL CODE. RECOMMENDATIONS AND DISCUSSION: Recommend to continue current medications. Continue with symptomatic treatment. Continue with antibiotics and continue bronchodilators, continue symptomatic treatment, monitor fluid and electrolytes balance closely. Potassium supplementation. Closely follow with Dr. Rowley. Repeat labs have been ordered. Increase ambulation, continue to monitor. Supplement vitamins. Discussed with the patient and multiple members of the family including the and understands and agrees. JONN
[2016-11-01] MEDS: DILTIAZEM 125 MG in SODIUM CHLORIDE 0.9% 100 ML IV SCH (20:00)
[2016-11-01] MEDS: LATANOPROST 0.005% OPHTH DROPS 2.5 ML BTL BOTH EYES SCH (21:11)
[2016-11-01 21:12] LABS: Glucose,Whole Blood 124 mg/dL (75-99)
[2016-11-01] MEDS ORDERED: IPRATROPIUM 0.5 MG/2.5 ML NEBU INHALATION PRN (22:06)
[2016-11-01] MEDS ORDERED: LEVALBUTEROL NEB (CONC) 1.25 MG/0.5 ML AMP INHALATION PRN (22:08)
[2016-11-02] MEDS: INSULIN LISPRO (humaLOG) 300 UNIT/3 ML VIAL SQ SCH ×4 (00:08→20:03)
[2016-11-02 00:09] LABS: Glucose,Whole Blood 131 mg/dL (75-99)
[2016-11-02] MEDS: methylPREDNISolone SOD SUCCI 40 MG/ML 1 ML VIAL IVP SCH ×3 (00:42→17:37)
[2016-11-02 06:10] LABS: Glucose,Whole Blood 192 mg/dL (75-99)
[2016-11-02] MEDS ORDERED: INSULIN LISPRO (humaLOG) 300 UNIT/3 ML VIAL SQ SCH (06:15)
[2016-11-02] MEDS: DILTIAZEM 125 MG in SODIUM CHLORIDE 0.9% 100 ML IV SCH ×2 (06:33→19:54)
[2016-11-02] MEDS: IPRATROPIUM 0.5 MG/2.5 ML NEBU INHALATION SCH ×4 (07:08→19:28)
[2016-11-02] MEDS: LEVALBUTEROL NEB (CONC) 1.25 MG/0.5 ML AMP INHALATION SCH ×4 (07:09→19:28)
[2016-11-02] MEDS: BUDESONIDE 0.5 MG/2 ML NEBU INHALATION SCH ×2 (07:09→19:28)
[2016-11-02 07:26] LABS: Basophils % (A) 0 %; CH 32.9; CHCM 31.3; Eosinophils # (A) 0.1 k/uL (0-0.7); Eosinophils % (A) 0 %; HCT 50.8 % (39.0-53.0); HDW 2.33; HGB 15.6 gm/dL (13.0-17.5); Hypochromasia Slight; Luc # (Auto) 0.14; Luc % (Auto) 1; Lymphocytes # (A) 0.6 k/uL (1.0-4.8); Lymphocytes % (A) 4 %; MCH 32.5 pg (25.0-35.0); MCHC 30.7 g/dL (31.0-37.0); MCV 105.8 fL (80.0-100.0); Macrocytosis Moderate; Mean Platelet Volume 6.7; Monocytes # (A) 0.7 k/uL (0-1.0); Monocytes % (A) 5 %; Neutrophils # (A) 14.2 k/uL (1.3-7.7); Neutrophils % (A) 90 %; RBC 4.81 m/uL (4.30-5.90); RDW 13.4 % (11.5-15.5); WBC 15.7 k/uL (3.8-10.6); WBC (Perox) 15.44
[2016-11-02 07:47] LABS: Anion Gap 14 mmol/L; Blood Urea Nitrogen 42 mg/dL (9-20); Calcium 8.8 mg/dL (8.4-10.2); Carbon Dioxide 32 mmol/L (22-30); Chloride 99 mmol/L (98-107); Glucose 177 mg/dL (74-99); Non-African American GFR(MDRD) >60 (>60 ml/min/1.73 sqM); Potassium 3.9 mmol/L (3.5-5.1); Sodium 145 mmol/L (137-145)
[2016-11-02] MEDS: PANTOPRAZOLE 40 MG TABLET PO SCH (08:42)
[2016-11-02] MEDS: LISINOPRIL 2.5 MG TAB PO SCH (08:42)
[2016-11-02] MEDS: METOPROLOL TARTRATE 25 MG TAB PO SCH ×3 (08:43→21:02)
[2016-11-02] MEDS: SPIRONOLACTONE 25 MG TAB PO SCH (08:43)
--- NOTE | 2016-11-02 09:07 | XR ---
EXAMINATION TYPE: XR chest 1V portable DATE OF EXAM: 11/02/2016 8:44 AM COMPARISON: 11/01/2016 INDICATION: Follow-up previous abnormal chest x-ray TECHNIQUE: Single frontal view of the chest is obtained. FINDINGS: The heart size is normal. The pulmonary vasculature is normal. There is developing small right pleural effusion. A small left pleural effusion is present. Bibasilar mild infiltrates are present. IMPRESSION: 1. Worsening small bilateral pleural effusions
[2016-11-02] MEDS ORDERED: POTASSIUM CHLORIDE ER 20 MEQ TAB.ER PO SCH (11:00)
[2016-11-02] MEDS: MULTIVITAMINS, THERA 1 EACH TAB PO SCH (11:45)
[2016-11-02] MEDS: FOLIC ACID 1 MG TAB PO SCH (11:46)
[2016-11-02] MEDS: THIAMINE 100 MG TAB PO SCH (11:46)
[2016-11-02] MEDS: cefTRIAXone 2,000 MG in SODIUM CHLORIDE 0.9% 100 ML IVPB SCH (11:47)
[2016-11-02 12:41] LABS: Glucose,Whole Blood 151 mg/dL (75-99)
--- NOTE | 2016-11-02 12:43 | P.PN ---
Subjective Principal diagnosis: Acute hypoxic and hypercapnic respiratory failure secondary to acute COPD exacerbation. 66-year-old male patient with advanced COPD and history of chronic extensive smoking presented to the [facility] problem with respiratory failure. The patient apparently was doing poorly over the past few weeks. He was planning to see me in the office next week and meanwhile he was seeing his primary care physician. One point was noted to have a pulse ox of 83% and he was placed on home O2. The patient was getting progressively more short of breath and earlier this morning he was brought into the hospital through EMS for respiratory failure. In the ED he was briefly placed on a BiPAP which she failed and the patient was becoming more obtunded and agitated and short of breath and for that reason he was intubated and placed on a mechanical ventilator. Note that his blood gases while being on 100% nonrebreather showed a pH of 7.2 with a pCO2 of 104 and pO2 of 102. Note that at time of arrival the patient was also in a flutter with rapid ventricular response at the rate of 160. and he was started on Cardizem drip at the rate of 10 mg an hour after being given a bolus of 20 mg IV push. Reevaluated today on 10/31/2016, remains on mechanical ventilation, ABG is practically about the same, ventilator settings are the same, however I increased his FiO2 to 50%. Patient will be switched today to IMV and pressure support, and I will gradually switch IMV to CPAP and pressure support. Patient is awake, follows simple instructions, chest x-ray is showing definite improvement, and his lab studies today were all reviewed. His WBC count is 6.9 hemoglobin is 12.5. ABG showed a pO2 of 66 pCO2 of 46 pH of 7.51. Hence his FiO2 was increased to 50%. Chest x-ray showed better aeration of the bases of his lungs, small effusions noted. Minimal atelectasis and minimal edema noted. Pneumonia is not excluded. Reevaluated today on 11/01/2016, patient was extubated yesterday, and he seems to have tolerated the extubation well. He was initially extubated to BiPAP, and he was on BiPAP overnight. Today he is down to a nasal cannula at 1.5 L, his O2 saturations are in the low 90s, and the patient is feeling much better, breathing a lot easier. All his labs were reviewed, his WBC count is 9.9, hemoglobin is 13.3, his potassium is low being corrected as per protocol, his BUN is 54, hence I will stop diuretics for now, and we'll slowly hydrate the patient. I plan to transfer the patient out of the ICU today. He remains in normal sinus rhythm. Patient will have BiPAP at bedside in case if he develops any worsening pulmonary status or hypercapnia. Patient was reevaluated today on 11/02/2016, clinically he is feeling much better , breathing a lot easier, however the patient is in atrial fibrillation with RVR , in spite of being on Cardizem at 10 mg per hour drip. Patient did not sleep well last night, today I recommended a trial of Xanax, patient feels that being on CPAP or BiPAP makes him anxious, and unable to sleep well at night. Hence we 'll try to have him sleep without BiPAP tonight, and we will give him a small dose of Xanax to get his anxiety taken care of. In the meantime I asked cardiology to evaluate for his atrial fibrillation, and I prefer that the patient stays in the ICU for today. I started him back on Lasix 20 mg orally twice a day, he remains on Aldactone, and his chest x-ray showed small bilateral pleural effusions. Objective - Vital Signs Vital signs: Vital Signs Temp 98.1 F 11/02/16 12:00 Pulse 90 11/02/16 12:00 Resp 19 11/02/16 12:00 BP 102/57 11/02/16 12:00 Pulse Ox 96 11/02/16 12:00 Intake & Output 11/01/16 11/02/16 11/02/16 18:59 06:59 18:59 Intake Total 700 336.484 170 Output Total 850 825 Balance -150 488.516 170 Weight 89.4 kg Intake: IV 260 240 20 0.9 KVO/Carrier 260 240 20 Intake, IV Titration 96.484 100 Amount Diltiazem 125 mg In 96.484 Sodium Chloride 0.9% 100 ml @ 5 MG/HR 5 mls/hr IV .Q24H [facility] Rx#:[id number] cefTRIAXone 2,000 mg In 100 Sodium Chloride 0.9% 100 ml @ 100 mls/hr IVPB DAILY@1200 [facility] Rx#: [id number] Oral 440 50 Output: Urine 850 825 Other: Voiding Method Toilet Bedside Commode Bedside Commode # Voids 1 0 # Bowel Movements 1 1 1 ABP, PAP, CO, CI - Last Documented Arterial Blood Pressure 177/68 - Exam Physical Exam: Revealed a 66-year-old obese, in no distress, presently on nasal cannula at 1.5 L HEENT:[Neck is supple.] [No neck masses.] [No thyromegaly.] [No JVD.] Chest: [Diminished breath sounds at the bases, minimal crackles at the left base. Cardiac Exam: Regular rhythm. [Normal S1 and S2, no S3 gallop, 2/6 systolic murmur throughout the precordium. Abdomen: [Soft, nontender, no megaly, no rebound, no guarding, normal bowel sounds.] Extremities: [No clubbing, 2+ bipedal edema, no cyanosis.] Neurological Exam: No gross focal neurologic deficit - Labs CBC & Chem 7: 11/02/16 07:06 11/02/16 07:06 Labs: Abnormal Lab Results - Last 24 Hours (Table) 11/01/16 11/01/16 11/02/16 Range/Units 17:05 21:09 00:06 WBC (3.8-10.6) k/uL MCV (80.0-100.0) fL MCHC (31.0-37.0) g/dL Neutrophils # (1.3-7.7) k/uL Lymphocytes # (1.0-4.8) k/uL Carbon Dioxide (22-30) mmol/L BUN (9-20) mg/dL Glucose (74-99) mg/dL POC Glucose (mg/dL) 100 H 124 H 131 H (75-99) mg/dL 11/02/16 11/02/16 11/02/16 Range/Units 06:07 07:06 07:06 WBC 15.7 H (3.8-10.6) k/uL MCV 105.8 H (80.0-100.0) fL MCHC 30.7 L (31.0-37.0) g/dL Neutrophils # 14.2 H (1.3-7.7) k/uL Lymphocytes # 0.6 L (1.0-4.8) k/uL Carbon Dioxide 32 H (22-30) mmol/L BUN 42 H (9-20) mg/dL Glucose 177 H (74-99) mg/dL POC Glucose (mg/dL) 192 H (75-99) mg/dL Assessment and Plan Plan: 1 status post acute hypercapnic respiratory failure secondary to COPD exacerbation requiring intubation and mechanical ventilation for almost 5 days. The patient was in acute hypercapnic respiratory failure with significant respiratory acidosis the time of arrival, failed BiPAP therapy, subsequently intubated and placed on a mechanical ventilator. Patient was extubated on 2016, and he tolerated extubation well so far. Will be placed on BiPAP intermittently especially at night when he sleeps. 2 bibasilar airspace disease, consistent with pneumonia, secondary to Streptococcus pneumoniae as noted on the sputum cultures. Patient remains on Rocephin. Chest x-ray today showed small bilateral pleural effusions, hence Lasix was restarted. And it will be a small dose at 20 mg twice a day orally. 3 shortness of breath and respiratory failure secondary to above, also secondary to some component of cardiomyopathy, LV dysfunction, and congestive heart failure. Responded well to diuretics. 4 a flutter with rapid ventricular response, patient is to be seen again by cardiology, he is back on Cardizem drip at 10 mg per hour, and I will keep him in the ICU. 5 nicotine addiction/tobacco dependence syndrome 6 history of severe chronic hypoxic respiratory failure secondary to COPD. 7 abnormal echocardiogram suggestive of LV dysfunction and cardiomyopathy. 8 acute congestive heart failure secondary to LV dysfunction responding well to diuretics. Recommendation: Continue present treatment plan including bronchodilators, antibiotics, GI and DVT prophylaxis, BiPAP as needed, oxygen as tolerated and will titrate according to O2 saturation. Patient will remain in the ICU mostly because of his cardiac arrhythmia, and does not seem to be responding well to multiple meds as given by cardiology. We'll ask cardiology to reevaluate. Time with Patient: Less than 30
[2016-11-02] MEDS: FUROSEMIDE 20 MG TAB PO SCH (17:38)
[2016-11-02] MEDS: RIVAROXABAN 10 MG TAB PO SCH (17:38)
[2016-11-02 17:44] LABS: Glucose,Whole Blood 97 mg/dL (75-99)
[2016-11-02 19:59] LABS: Glucose,Whole Blood 149 mg/dL (75-99)
[2016-11-02] MEDS: LATANOPROST 0.005% OPHTH DROPS 2.5 ML BTL BOTH EYES SCH (20:03)
[2016-11-02] MEDS: ALPRAZolam 0.25 MG TAB PO PRN (21:12)
--- NOTE | 2016-11-02 21:12 | PN ---
DATE OF SERVICE: 11/02/2016 This 66-year-old gentleman who was admitted with COPD exacerbation, also had acute respiratory failure. The patient also had some element of fluid overload and as well as congestive heart failure also. The 2-D echo with Doppler which was done 10/28/2016 showed ejection fraction 35% with mild to moderate impairment as well. The patient being closely monitored in the ICU. The patient still on O2 at this time. Dr. Rowley is following the patient closely. The patient overnight had atrial fibrillation. PAST MEDICAL HISTORY: Reviewed. REVIEW OF SYSTEMS: CARDIOVASCULAR: No angina or palpitations. RESPIRATORY: As mentioned earlier. GI: As mentioned earlier. : No dysuria. Nervous system: As mentioned earlier. Current medications are reviewed and include: 1. Tylenol 650 q.4. 2. Xanax 0.25 t.i.d. 3. Pulmicort 0.5 b.i.d. 4. Rocephin 1 gram daily. 5. Diltiazem drip. 6. Folic acid 1 mg p.o. daily. 7. Lasix 20 b.i.d. 8. Atrovent. 9. Xalatan. 10. Xopenex. 11. Zestril. 12. Solu-Medrol 40 IV q.8. 13. Multivitamins. 14. Narcan. 15. Protonix. 16. Xarelto. 17. Vitamin B1. PHYSICAL EXAMINATION: The patient is alert and oriented x3. Pulse 78, blood pressure 111/58, respiratory rate 30, temperature 98.4, pulse ox 98% on 4 L. HEENT: Conjunctivae normal. NECK: No jugular venous distention. CARDIOVASCULAR: S1, S2 muffled. RESPIRATORY: Breath sounds diminished at the bases. Bilateral scattered rhonchi and crackles. ABDOMEN: Soft. Nontender. No mass palpable. LEGS: Minimal edema bilaterally. CENTRAL NERVOUS SYSTEM: Higher functions as mentioned earlier. Moves all four limbs. No focal deficits. LYMPHATICS: No lymph nodes palpable in the neck, axillae or groin. SKIN: No ulcer, rash or bleeding. LABS: WBC 15.7, hemoglobin 15.6 ABGs noted, sodium is 140, potassium 3.9. ASSESSMENT: 1. Chronic obstructive pulmonary disease, acute exacerbation, with acute bibasilar pneumonia, possibly Strep pneumonia. Sputum culture with possible sepsis present on admission. 2. Acute hypoxic hypercarbic respiratory failure, status post mechanical ventilation. 3. Congestive heart failure acute exacerbation with acute on chronic systolic dysfunction, ejection fraction 30 to 35% with possible secondary to cardiomyopathy. 4. Status post BiPAP and currently on nasal cannula. 5. Change in mental status, metabolic encephalopathy, multifactorial. 6. History of nicotine dependence. 7. Atrial flutter with rapid ventricular rate, present on admission. 8. Paroxysmal atrial fibrillation. 9. Chronic respiratory failure on home oxygen, hypoxic. 10. Chronic obstructive pulmonary disease. 11. History of obesity. 12. History of glaucoma. 13. History of nicotine dependence. 14. On Xarelto. 15. FULL CODE. RECOMMENDATIONS AND DISCUSSION: I recommend to continue current medications and continue with monitoring. Symptomatic treatment. Monitor fluid and electrolytes balance closely. Otherwise, I would recommend continue with the diuretics. Continue the rest of the medications. Closely follow with Dr. Rowley and cardiology, bronchodilators, empiric antibiotics, steroids. 2-D echo reviewed. Guarded prognosis. Further recommendations to follow.
[2016-11-03] MEDS: methylPREDNISolone SOD SUCCI 40 MG/ML 1 ML VIAL IVP SCH ×2 (00:09→07:53)
[2016-11-03] MEDS: ALPRAZolam 0.25 MG TAB PO PRN ×2 (01:45→21:03)
[2016-11-03 05:34] LABS: Basophils % (A) 0 %; CH 32.8; CHCM 31.6; Eosinophils % (A) 0 %; HCT 44.4 % (39.0-53.0); HDW 2.32; HGB 13.9 gm/dL (13.0-17.5); Hypochromasia Slight; Luc # (Auto) 0.07; Luc % (Auto) 0; Lymphocytes # (A) 0.5 k/uL (1.0-4.8); Lymphocytes % (A) 3 %; MCH 32.8 pg (25.0-35.0); MCHC 31.3 g/dL (31.0-37.0); MCV 104.5 fL (80.0-100.0); Macrocytosis Slight; Mean Platelet Volume 6.8; Monocytes # (A) 0.6 k/uL (0-1.0); Monocytes % (A) 4 %; Neutrophils # (A) 16.6 k/uL (1.3-7.7); Neutrophils % (A) 93 %; RBC 4.25 m/uL (4.30-5.90); RDW 13.4 % (11.5-15.5); WBC 17.9 k/uL (3.8-10.6); WBC (Perox) 18.23
[2016-11-03 05:51] LABS: Anion Gap 5 mmol/L; Blood Urea Nitrogen 34 mg/dL (9-20); Calcium 8.3 mg/dL (8.4-10.2); Carbon Dioxide 38 mmol/L (22-30); Chloride 100 mmol/L (98-107); Glucose 131 mg/dL (74-99); Magnesium 2.3 mg/dL (1.6-2.3); Non-African American GFR(MDRD) >60 (>60 ml/min/1.73 sqM); Phosphorous 4.2 mg/dL (2.5-4.5); Potassium 4.2 mmol/L (3.5-5.1); Sodium 143 mmol/L (137-145)
[2016-11-03] MEDS: LEVALBUTEROL NEB (CONC) 1.25 MG/0.5 ML AMP INHALATION SCH ×4 (07:04→19:00)
[2016-11-03] MEDS: IPRATROPIUM 0.5 MG/2.5 ML NEBU INHALATION SCH ×4 (07:04→19:00)
[2016-11-03] MEDS: BUDESONIDE 0.5 MG/2 ML NEBU INHALATION SCH ×2 (07:04→19:00)
[2016-11-03 07:18] LABS: Glucose,Whole Blood 102 mg/dL (75-99)
[2016-11-03] MEDS: INSULIN LISPRO (humaLOG) 300 UNIT/3 ML VIAL SQ SCH ×4 (07:52→21:03)
[2016-11-03] MEDS: PANTOPRAZOLE 40 MG TABLET PO SCH (07:54)
[2016-11-03] MEDS: LISINOPRIL 2.5 MG TAB PO SCH (07:54)
[2016-11-03] MEDS: SPIRONOLACTONE 25 MG TAB PO SCH (07:54)
[2016-11-03] MEDS: FUROSEMIDE 20 MG TAB PO SCH ×2 (07:54→16:21)
[2016-11-03] MEDS: METOPROLOL TARTRATE 25 MG TAB PO SCH (07:54)
--- NOTE | 2016-11-03 08:19 | XR ---
EXAMINATION TYPE: XR chest 1V portable DATE OF EXAM: 11/03/2016 6:48 AM COMPARISON: 11/02/2016 INDICATION: P NM versus CHF TECHNIQUE: Single frontal view of the chest is obtained. FINDINGS: The heart size is normal. The pulmonary vasculature is normal. Bibasilar infiltrates are present. Left pleural effusion is likely present. IMPRESSION: 1. Bibasilar infiltrates. Continued follow-up is recommended.
[2016-11-03 11:30] LABS: Glucose,Whole Blood 220 mg/dL (75-99)
--- NOTE | 2016-11-03 12:23 | P.PN ---
Subjective Principal diagnosis: Acute hypoxic and hypercapnic respiratory failure secondary to acute COPD exacerbation. 66-year-old male patient with advanced COPD and history of chronic extensive smoking presented to the [facility] problem with respiratory failure. The patient apparently was doing poorly over the past few weeks. He was planning to see me in the office next week and meanwhile he was seeing his primary care physician. One point was noted to have a pulse ox of 83% and he was placed on home O2. The patient was getting progressively more short of breath and earlier this morning he was brought into the hospital through EMS for respiratory failure. In the ED he was briefly placed on a BiPAP which she failed and the patient was becoming more obtunded and agitated and short of breath and for that reason he was intubated and placed on a mechanical ventilator. Note that his blood gases while being on 100% nonrebreather showed a pH of 7.2 with a pCO2 of 104 and pO2 of 102. Note that at time of arrival the patient was also in a flutter with rapid ventricular response at the rate of 160. and he was started on Cardizem drip at the rate of 10 mg an hour after being given a bolus of 20 mg IV push. Reevaluated today on 10/31/2016, remains on mechanical ventilation, ABG is practically about the same, ventilator settings are the same, however I increased his FiO2 to 50%. Patient will be switched today to IMV and pressure support, and I will gradually switch IMV to CPAP and pressure support. Patient is awake, follows simple instructions, chest x-ray is showing definite improvement, and his lab studies today were all reviewed. His WBC count is 6.9 hemoglobin is 12.5. ABG showed a pO2 of 66 pCO2 of 46 pH of 7.51. Hence his FiO2 was increased to 50%. Chest x-ray showed better aeration of the bases of his lungs, small effusions noted. Minimal atelectasis and minimal edema noted. Pneumonia is not excluded. Reevaluated today on 11/01/2016, patient was extubated yesterday, and he seems to have tolerated the extubation well. He was initially extubated to BiPAP, and he was on BiPAP overnight. Today he is down to a nasal cannula at 1.5 L, his O2 saturations are in the low 90s, and the patient is feeling much better, breathing a lot easier. All his labs were reviewed, his WBC count is 9.9, hemoglobin is 13.3, his potassium is low being corrected as per protocol, his BUN is 54, hence I will stop diuretics for now, and we'll slowly hydrate the patient. I plan to transfer the patient out of the ICU today. He remains in normal sinus rhythm. Patient will have BiPAP at bedside in case if he develops any worsening pulmonary status or hypercapnia. Patient was reevaluated today on 11/02/2016, clinically he is feeling much better , breathing a lot easier, however the patient is in atrial fibrillation with RVR , in spite of being on Cardizem at 10 mg per hour drip. Patient did not sleep well last night, today I recommended a trial of Xanax, patient feels that being on CPAP or BiPAP makes him anxious, and unable to sleep well at night. Hence we 'll try to have him sleep without BiPAP tonight, and we will give him a small dose of Xanax to get his anxiety taken care of. In the meantime I asked cardiology to evaluate for his atrial fibrillation, and I prefer that the patient stays in the ICU for today. I started him back on Lasix 20 mg orally twice a day, he remains on Aldactone, and his chest x-ray showed small bilateral pleural effusions. Patient was reevaluated today on 11/03/2016, continues to do well, his heart rate seems to be better controlled today and I was related to a higher dose of beta blockers. Hemodynamically the patient is stable, chest x-ray showed small bilateral pleural effusions and atelectasis, patient remains on diuretics in the form of Lasix and Aldactone. For his Streptococcus pneumonia, patient remains on antibiotics. I will switch him today to oral antibiotics. CBC continues to show a bit of leukocytosis with W2 17.9, hemoglobin is 13.9 electrolytes and renal profile are normal. Objective - Vital Signs Vital signs: Vital Signs Temp 98.2 F 11/03/16 08:00 Pulse 81 11/03/16 08:00 Resp 24 11/03/16 08:00 BP 118/65 11/03/16 08:00 Pulse Ox 92 L 11/03/16 08:00 Intake & Output 11/02/16 11/03/16 11/03/16 18:59 06:59 18:59 Intake Total 490 365 40 Output Total 300 460 300 Balance 190 -95 -260 Weight 91.7 kg Intake: IV 140 240 40 0.9 KVO/Carrier 140 240 40 Intake, IV Titration 100 125 Amount Diltiazem 125 mg In 125 Sodium Chloride 0.9% 100 ml @ 5 MG/HR 5 mls/hr IV .Q24H [facility] Rx#:[id number] cefTRIAXone 2,000 mg In 100 Sodium Chloride 0.9% 100 ml @ 100 mls/hr IVPB DAILY@1200 [facility] Rx#: [id number] Oral 250 Output: Urine 300 460 300 Other: Voiding Method Bedside Commode Bedside Commode # Voids 1 # Bowel Movements 2 ABP, PAP, CO, CI - Last Documented Arterial Blood Pressure 177/68 - Exam Physical Exam: Revealed a 66-year-old obese, in no distress, presently on nasal cannula at 1.5 L HEENT:[Neck is supple.] [No neck masses.] [No thyromegaly.] [No JVD.] Chest: [Diminished breath sounds at the bases, minimal crackles at the left base. Cardiac Exam: Regular rhythm. [Normal S1 and S2, no S3 gallop, 2/6 systolic murmur throughout the precordium. Abdomen: [Soft, nontender, no megaly, no rebound, no guarding, normal bowel sounds.] Extremities: [No clubbing, 2+ bipedal edema, no cyanosis.] Neurological Exam: No gross focal neurologic deficit - Labs CBC & Chem 7: 11/03/16 05:20 11/03/16 05:20 Labs: Abnormal Lab Results - Last 24 Hours (Table) 11/02/16 11/02/16 11/03/16 Range/Units 12:39 19:56 05:20 WBC 17.9 H (3.8-10.6) k/uL RBC 4.25 L (4.30-5.90) m/uL MCV 104.5 H (80.0-100.0) fL Neutrophils # 16.6 H (1.3-7.7) k/uL Lymphocytes # 0.5 L (1.0-4.8) k/uL Carbon Dioxide (22-30) mmol/L BUN (9-20) mg/dL Glucose (74-99) mg/dL POC Glucose (mg/dL) 151 H 149 H (75-99) mg/dL Calcium (8.4-10.2) mg/dL 11/03/16 11/03/16 11/03/16 Range/Units 05:20 07:16 11:28 WBC (3.8-10.6) k/uL RBC (4.30-5.90) m/uL MCV (80.0-100.0) fL Neutrophils # (1.3-7.7) k/uL Lymphocytes # (1.0-4.8) k/uL Carbon Dioxide 38 H (22-30) mmol/L BUN 34 H (9-20) mg/dL Glucose 131 H (74-99) mg/dL POC Glucose (mg/dL) 102 H 220 H (75-99) mg/dL Calcium 8.3 L (8.4-10.2) mg/dL Assessment and Plan Plan: 1 status post acute hypercapnic respiratory failure secondary to COPD exacerbation requiring intubation and mechanical ventilation for almost 5 days. The patient was in acute hypercapnic respiratory failure with significant respiratory acidosis the time of arrival, failed BiPAP therapy, subsequently intubated and placed on a mechanical ventilator. Patient was extubated on 2016, and he tolerated extubation well so far. Patient is mostly now on 2 L nasal cannula, continues to have BiPAP at bedside to be used as needed. 2 bibasilar airspace disease, consistent with pneumonia, secondary to Streptococcus pneumoniae as noted on the sputum cultures. Patient remains on Rocephin. Today I will showed the patient to oral Levaquin. Chest x-ray today showed small bilateral pleural effusions, hence Lasix was restarted. And it will be a small dose at 20 mg twice a day orally. 3 shortness of breath and respiratory failure secondary to above, also secondary to some component of cardiomyopathy, LV dysfunction, and congestive heart failure. Responded well to diuretics. 4 a flutter with rapid ventricular response, patient is to be seen again by cardiology, he is back on Cardizem drip at 10 mg per hour, and I will keep him in the ICU. 5 nicotine addiction/tobacco dependence syndrome 6 history of severe chronic hypoxic respiratory failure secondary to COPD. 7 abnormal echocardiogram suggestive of LV dysfunction and cardiomyopathy. 8 acute congestive heart failure secondary to LV dysfunction responding well to diuretics. Recommendation: Continue present treatment plan including bronchodilators, antibiotics, GI and DVT prophylaxis, BiPAP as needed, oxygen as tolerated and will titrate according to O2 saturation. Patient can be transferred out of the ICU today, and we'll continue to follow, consider discharge planning in the next 24-48 hours. Time with Patient: Less than 30
[2016-11-03] MEDS: cefTRIAXone 2,000 MG in SODIUM CHLORIDE 0.9% 100 ML IVPB SCH (12:25)
[2016-11-03] MEDS: THIAMINE 100 MG TAB PO SCH (12:35)
[2016-11-03] MEDS: MULTIVITAMINS, THERA 1 EACH TAB PO SCH (12:35)
[2016-11-03] MEDS: FOLIC ACID 1 MG TAB PO SCH (12:35)
[2016-11-03] MEDS: LEVOFLOXACIN 750 MG TAB PO SCH (13:31)
[2016-11-03] MEDS: predniSONE 10 MG TAB PO SCH (13:31)
[2016-11-03 17:14] LABS: Glucose,Whole Blood 68 mg/dL (75-99)
[2016-11-03 17:27] LABS: Glucose,Whole Blood 87 mg/dL (75-99)
[2016-11-03] MEDS: METOPROLOL SUCCINATE (ER) 50 MG TAB.ER.24H PO SCH (17:42)
[2016-11-03] MEDS: RIVAROXABAN 10 MG TAB PO SCH (17:43)
--- NOTE | 2016-11-03 17:49 | P.PN ---
Subjective Patient is doing better. He is back in sinus rhythm his respirations are stable. He denies any chest discomfort he does not appear to be short of breath On examining He is afebrile 98F pulse rate in the 80s, blood pressure 116/66 mmHg respirations 20 Breath sounds are reduced bilaterally no rhonchi no crackles Heart sounds are normal Abdomen soft Extremities is soft no edema Impression Paroxysmal atrial fibrillation Patient is back in sinus rhythm Cardio myopathy COPD exacerbation Hypertension Plan Continue current medications Continue COPD management . Anticoagulation Continue lisinopril Start metoprolol succinate 50 g by mouth twice a day for rate control and for cardio myopathy Objective - Vital Signs Vital signs: Vital Signs Temp 98.0 F 11/03/16 16:00 Pulse 80 11/03/16 16:00 Resp 23 11/03/16 16:00 BP 116/66 11/03/16 16:00 Pulse Ox 94 L 11/03/16 17:00 Intake & Output 11/02/16 11/03/16 11/03/16 18:59 06:59 18:59 Intake Total 490 365 440 Output Total 300 460 800 Balance 190 -95 -360 Weight 91.7 kg Intake: IV 140 240 100 0.9 KVO/Carrier 140 240 100 Intake, IV Titration 100 125 100 Amount Diltiazem 125 mg In 125 Sodium Chloride 0.9% 100 ml @ 5 MG/HR 5 mls/hr IV .Q24H [facility] Rx#:[id number] cefTRIAXone 2,000 mg In 100 100 Sodium Chloride 0.9% 100 ml @ 100 mls/hr IVPB DAILY@1200 [facility] Rx#: [id number] Oral 250 240 Output: Urine 300 460 800 Other: Voiding Method Bedside Commode Bedside Commode Bedside Commode # Voids 1 1 # Bowel Movements 2 1 ABP, PAP, CO, CI - Last Documented Arterial Blood Pressure 177/68 - Labs CBC & Chem 7: 11/03/16 05:20 11/03/16 05:20 Labs: Abnormal Lab Results - Last 24 Hours (Table) 11/02/16 11/03/16 11/03/16 Range/Units 19:56 05:20 05:20 WBC 17.9 H (3.8-10.6) k/uL RBC 4.25 L (4.30-5.90) m/uL MCV 104.5 H (80.0-100.0) fL Neutrophils # 16.6 H (1.3-7.7) k/uL Lymphocytes # 0.5 L (1.0-4.8) k/uL Carbon Dioxide 38 H (22-30) mmol/L BUN 34 H (9-20) mg/dL Glucose 131 H (74-99) mg/dL POC Glucose (mg/dL) 149 H (75-99) mg/dL Calcium 8.3 L (8.4-10.2) mg/dL 11/03/16 11/03/16 11/03/16 Range/Units 07:16 11:28 17:10 WBC (3.8-10.6) k/uL RBC (4.30-5.90) m/uL MCV (80.0-100.0) fL Neutrophils # (1.3-7.7) k/uL Lymphocytes # (1.0-4.8) k/uL Carbon Dioxide (22-30) mmol/L BUN (9-20) mg/dL Glucose (74-99) mg/dL POC Glucose (mg/dL) 102 H 220 H 68 L (75-99) mg/dL Calcium (8.4-10.2) mg/dL
--- NOTE | 2016-11-03 19:08 | PN ---
DATE OF SERVICE: 11/03/2016 This 66-year-old gentleman who was admitted with COPD acute exacerbation as well as congestive heart failure acute exacerbation also had strep pneumonia with sputum culture. The patient is extubated. The patient is improved significantly. Dr. Rowley is following the patient closely. The most recent chest x-ray showed bibasilar infiltrate. Past medical history reviewed. REVIEW OF SYSTEMS: CARDIOVASCULAR: No angina or palpitations. RESPIRATORY: As mentioned earlier. GASTROINTESTINAL: As mentioned earlier. : No dysuria. Nervous system: No numbness or weakness. Current medications are reviewed and includin. Tylenol 650 q.4 p.r.n. 2. Xanax 0.25 t.i.d. 3. Pulmicort 0.5 b.i.d. 4. Folic acid 1 mg daily. 5. Lasix 20 mg b.i.d. 6. Humalog scale. 7. Albuterol Atrovent updrafts. 8. Xopenex Atrovent updrafts q.i.d. and p.r.n. 9. Levaquin 750 p.o. daily. 10. Zestril 2.5 mg daily. 11. Toprol-XL. 12. Multivitamins one p.o. daily. 13. Narcan 0.2 q.2 p.r.n. 14. Protonix 40 mg daily. 15. Prednisone 30 mg daily. 16. Xarelto 20 mg supper. 17. Aldactone 25 mg daily. 18. Vitamin B1 100 mg p.o. daily. PHYSICAL EXAMINATION: The patient is alert and oriented times three. VITAL SIGNS: Pulse 72, blood pressure 130/65. Respiratory rate 22. Temperature 98 degrees. Pulse ox 92% on 4 L. HEENT: Conjunctivae normal. Oral mucosa moist. NECK: No jugular venous distention. No carotid bruit. No lymph node enlargement. CARDIOVASCULAR: S1, S2 muffled. No S3, no S4. RESPIRATORY: Breath sounds diminished at the bases. Bilateral scattered rhonchi and expiratory wheezing also present. ABDOMEN: Soft. Nontender. No mass palpable. LEGS: No edema. No swelling. Nervous system: Higher function as mentioned earlier. Moves all four limbs. No focal deficits. LYMPHATICS: No lymph nodes palpable in the neck, axillae or groin. SKIN: No ulcer, rash or bleeding. LABS: WBC 17.5, hemoglobin 13.9, CO2 38. ASSESSMENT: 1. Shortness of breath multifactorial with chronic obstructive pulmonary disease, acute exacerbation, with acute bibasilar pneumonia, possibly strep pneumonia. Sputum culture positive with Strep pneumonia with possible sepsis, present on admission. 2. Congestive heart failure exacerbation, with acute on chronic systolic dysfunction, ejection fraction 30 to 35% possibly secondary to cardiomyopathy. 3. Acute hypoxic hypercarbic respiratory failure secondary to #1 and 2, status post mechanical ventilation. 4. Status post BiPAP currently on nasal cannula. 5. Change in mental status, metabolic encephalopathy, multifactorial as mentioned earlier. 6. History of nicotine dependence. 7. Atrial flutter with rapid ventricular rate present on admission. 8. Paroxysmal atrial fibrillation. 9. Chronic respiratory failure on home oxygen, hypoxic. 10. History of chronic obstructive pulmonary disease. 11. History of obesity. 12. History of glaucoma. 13. History of nicotine dependence, on Xarelto. 14. FULL CODE. RECOMMENDATIONS AND DISCUSSION: In this 66-year-old gentleman who presented with multiple complex medical issues, we will monitor the patient closely. Continue the current medications continue symptomatic treatment, continue bronchodilators, continue with tapering dose of steroids. Otherwise, continue with Xarelto. Continue the incentive spirometry. Increase ambulation. Evaluate for home O2. Guarded prognosis. Further recommendations to follow. Follow with Dr. Rowley. Further recommendations to follow.
[2016-11-03 20:15] LABS: Glucose,Whole Blood 144 mg/dL (75-99)
[2016-11-03] MEDS: LATANOPROST 0.005% OPHTH DROPS 2.5 ML BTL BOTH EYES SCH (21:03)
[2016-11-04] MEDS: DILTIAZEM 125 MG in SODIUM CHLORIDE 0.9% 100 ML IV SCH ×2 (04:03→15:58)
[2016-11-04 04:41] LABS: Basophils % (A) 0 %; CH 32.9; CHCM 31.5; Eosinophils % (A) 0 %; HCT 48.4 % (39.0-53.0); HDW 2.28; HGB 15.2 gm/dL (13.0-17.5); Hypochromasia Slight; Luc # (Auto) 0.23; Luc % (Auto) 1; Lymphocytes % (A) 6 %; MCHC 31.4 g/dL (31.0-37.0); MCV 105.1 fL (80.0-100.0); Macrocytosis Slight; Mean Platelet Volume 7.1; Monocytes # (A) 1.2 k/uL (0-1.0); Monocytes % (A) 7 %; Neutrophils # (A) 14.8 k/uL (1.3-7.7); Neutrophils % (A) 86 %; RDW 13.2 % (11.5-15.5); WBC 17.3 k/uL (3.8-10.6); WBC (Perox) 17.72
[2016-11-04 04:55] LABS: Anion Gap 9 mmol/L; Blood Urea Nitrogen 28 mg/dL (9-20); Calcium 8.8 mg/dL (8.4-10.2); Carbon Dioxide 36 mmol/L (22-30); Chloride 96 mmol/L (98-107); Glucose 124 mg/dL (74-99); Magnesium 2.2 mg/dL (1.6-2.3); Non-African American GFR(MDRD) >60 (>60 ml/min/1.73 sqM); Sodium 141 mmol/L (137-145)
[2016-11-04] MEDS: METOPROLOL SUCCINATE (ER) 50 MG TAB.ER.24H PO SCH ×2 (05:28→18:43)
[2016-11-04] MEDS: BUDESONIDE 0.5 MG/2 ML NEBU INHALATION SCH ×2 (07:29→19:14)
[2016-11-04] MEDS: LEVALBUTEROL NEB (CONC) 1.25 MG/0.5 ML AMP INHALATION SCH ×4 (07:29→19:14)
[2016-11-04] MEDS: IPRATROPIUM 0.5 MG/2.5 ML NEBU INHALATION SCH ×4 (07:29→19:14)
[2016-11-04 07:57] LABS: Glucose,Whole Blood 83 mg/dL (75-99)
--- NOTE | 2016-11-04 08:36 | P.PN ---
Subjective Principal diagnosis: Ventilatory dependent respiratory failure secondary to COPD exacerbation, atrial fibrillation with rapid ventricular response This is a very pleasant 66-year-old male patient who was admitted back 1699 with complaints of shortness of breath. He had subsequently developed acute respiratory failure requiring intubation and mechanical ventilatory support that same day. This subsequently been successfully extubated. He is seen again today in follow-up. He is awake and alert in no acute distress. He is sitting up in the chair at the bedside. He denies any worsening shortness of breath, cough or congestion. His chest x-ray continued to show some basilar effusions but overall improvement in the volume status. He is maintaining good O2 saturations in the upper 90s on 2 L/m per nasal cannula. He's been afebrile. He has had ongoing issues with atrial fibrillation. He was back in sinus rhythm yesterday but again has gone back into atrial fibrillation again this morning. He remains on a Cardizem drip at 10 mg per hour. He is anticoagulated with Xarelto. Objective - Vital Signs Vital signs: Vital Signs Temp 97.9 F 11/04/16 01:00 Pulse 129 H 11/04/16 07:51 Resp 22 11/04/16 01:00 BP 158/88 11/04/16 01:00 Pulse Ox 96 11/04/16 01:00 Intake & Output 11/03/16 11/04/16 11/04/16 18:59 06:59 18:59 Intake Total 440 163.75 Output Total 800 800 Balance -360 -636.25 Weight 96.2 kg Intake: IV 100 0.9 KVO/Carrier 100 Intake, IV Titration 100 13.75 Amount Diltiazem 125 mg In 13.75 Sodium Chloride 0.9% 100 ml @ 10 MG/HR 10 mls/hr IV .[id number] [facility] Rx#: [id number] cefTRIAXone 2,000 mg In 100 Sodium Chloride 0.9% 100 ml @ 100 mls/hr IVPB DAILY@1200 [facility] Rx#: [id number] Oral 240 150 Output: Urine 800 800 Other: Voiding Method Bedside Commode Bedside Commode # Voids 1 # Bowel Movements 1 ABP, PAP, CO, CI - Last Documented Arterial Blood Pressure 177/68 - Exam GENERAL EXAM: Alert, active, comfortable in no apparent distress. HEAD: Normocephalic. EYES: Normal reaction of pupils, equal size. NOSE: Clear with pink turbinates. THROAT: No erythema or exudates. NECK: No masses, no JVD. CHEST: No chest wall deformity. LUNGS: Equal air entry with faint end expiratory wheeze. Diminished throughout. CVS: S1 and S2 normal with no audible murmurs, irregular rhythm. ABDOMEN: No hepatosplenomegaly, normal bowel sounds, no guarding or rigidity. SPINE: No scoliosis or deformity SKIN: No rashes CENTRAL NERVOUS SYSTEM: No focal deficits, tone is normal in all 4 extremities. Extremities: There is trace peripheral edema. No clubbing, no cyanosis. Peripheral pulses are intact. - Labs CBC & Chem 7: 11/04/16 04:07 11/04/16 04:07 Labs: Abnormal Lab Results - Last 24 Hours (Table) 11/03/16 11/03/16 11/03/16 Range/Units 11:28 17:10 20:13 WBC (3.8-10.6) k/uL MCV (80.0-100.0) fL Neutrophils # (1.3-7.7) k/uL Monocytes # (0-1.0) k/uL Chloride (98-107) mmol/L Carbon Dioxide (22-30) mmol/L BUN (9-20) mg/dL Glucose (74-99) mg/dL POC Glucose (mg/dL) 220 H 68 L 144 H (75-99) mg/dL 11/04/16 11/04/16 Range/Units 04:07 04:07 WBC 17.3 H (3.8-10.6) k/uL MCV 105.1 H (80.0-100.0) fL Neutrophils # 14.8 H (1.3-7.7) k/uL Monocytes # 1.2 H (0-1.0) k/uL Chloride 96 L (98-107) mmol/L Carbon Dioxide 36 H (22-30) mmol/L BUN 28 H (9-20) mg/dL Glucose 124 H (74-99) mg/dL POC Glucose (mg/dL) (75-99) mg/dL Assessment and Plan Plan: Impression: #1 Acute respiratory failure secondary to COPD exacerbation and Streptococcus pneumoniae pneumonia initially requiring intubation mechanical ventilatory support. Successfully extubated and recovered. #2 Acute on chronic hypoxic respiratory failure secondary to COPD. #3 Atrial fibrillation with rapid ventricular response, currently back on Cardizem drip at 10 mg per hour. #4 Chronic and ongoing tobacco dependence. Plan: The patient was seen and evaluated by Dr. Liao. He is currently stable from the pulmonary standpoint. We'll continue with his bronchodilators and Pulmicort inhalations. He is on antibiotics in the form of Levaquin. He remains anticoagulated with Xarelto. He is on Protonix for GI prophylaxis. Cardiology is managing the atrial fibrillation. We'll increase his activity as tolerated. We'll continue to follow make further recommendations based on his clinical status. He is again educated regarding the importance of complete smoking cessation.
[2016-11-04] MEDS: INSULIN LISPRO (humaLOG) 300 UNIT/3 ML VIAL SQ SCH ×4 (08:39→20:45)
[2016-11-04] MEDS: LEVOFLOXACIN 750 MG TAB PO SCH (08:42)
[2016-11-04] MEDS: PANTOPRAZOLE 40 MG TABLET PO SCH (08:43)
[2016-11-04] MEDS: FUROSEMIDE 20 MG TAB PO SCH ×2 (08:43→15:58)
[2016-11-04] MEDS: SPIRONOLACTONE 25 MG TAB PO SCH (08:44)
[2016-11-04] MEDS: predniSONE 10 MG TAB PO SCH (08:44)
[2016-11-04] MEDS: LISINOPRIL 2.5 MG TAB PO SCH (08:44)
[2016-11-04] MEDS ORDERED: DEXTROSE 5% IN WATER 250 ML with AMIODARONE 300 MG IV ONE (09:54)
--- NOTE | 2016-11-04 10:17 | XR ---
EXAMINATION TYPE: XR chest 1V portable DATE OF EXAM: 11/04/2016 6:43 AM COMPARISON: 11/03/2016 HISTORY: Shortness of breath TECHNIQUE: Single frontal view of the chest is obtained. FINDINGS: Bilateral lower lobe infiltrate and small effusion. Arthropathy shoulders. Heart is promin ent. No overt failure. IMPRESSION: 1. Bilateral lower lobe infiltrate and small effusion.
[2016-11-04 11:41] VITALS: BMI 31.3
[2016-11-04 12:01] LABS: Glucose,Whole Blood 103 mg/dL (75-99)
[2016-11-04] MEDS: MULTIVITAMINS, THERA 1 EACH TAB PO SCH (12:55)
[2016-11-04] MEDS: THIAMINE 100 MG TAB PO SCH (12:55)
[2016-11-04] MEDS: FOLIC ACID 1 MG TAB PO SCH (12:55)
[2016-11-04 17:52] LABS: Glucose,Whole Blood 112 mg/dL (75-99)
[2016-11-04] MEDS: RIVAROXABAN 10 MG TAB PO SCH (18:40)
[2016-11-04 20:28] LABS: Glucose,Whole Blood 212 mg/dL (75-99)
[2016-11-04] MEDS: LATANOPROST 0.005% OPHTH DROPS 2.5 ML BTL BOTH EYES SCH (20:45)
--- NOTE | 2016-11-04 23:33 | PN ---
DATE OF SERVICE: 11/04/2016 This 66-year-old gentleman, admitted with COPD, acute exacerbation, also had atrial fibrillation today. The patient is on Cardizem drip and amiodarone bolus was also given. No chest pain. No palpitation. No fever. The most recent chest x-ray done today showed bilateral lower lobe infiltrate, small effusion. On exam, alert and oriented x3. Pulse 130, irregular. Blood pressure 106/78, respiration 18, temperature 97.9, pulse ox 94% on 5 L. HEENT: Conjunctivae normal. NECK: No jugular venous distention. CARDIOVASCULAR SYSTEM: S1, S2 muffled. RESPIRATORY SYSTEM: Breath sounds diminished at the bases. A few scattered rhonchi and crackles. ABDOMEN: Soft, nontender. LEGS: No edema. No swelling. NERVOUS SYSTEM: No focal deficit. LABS: WBC 17.3. Glucose noted. ASSESSMENT: 1. Shortness of breath, possibly multifactorial, with chronic obstructive pulmonary disease, acute exacerbation, with acute bibasilar pneumonia, possibly strep pneumonia, with possible sepsis, present on admission. 2. Congestive heart failure, acute exacerbation, with acute on chronic systolic dysfunction; ejection fraction 30% to 35%, possibly secondary to cardiomyopathy. 3. Acute hypoxic hypercarbic respiratory failure secondary to #1 and #2, status post mechanical ventilation. 4. Status post BiPAP, currently on nasal cannula. 5. Atrial fibrillation with fast ventricular rate, paroxysmal. 6. Change in mental status, metabolic encephalopathy, multifactorial, as mentioned earlier. 7. History of nicotine dependence. 8. Atrial flutter with rapid ventricular response, present on admission. 9. Paroxysmal atrial fibrillation. 10. Chronic respiratory failure, hypoxic, on home oxygen. 11. History of chronic obstructive pulmonary disease. 12. History of obesity. 13. History of glaucoma. 14. History of nicotine dependence. 15. On Xarelto. 16. FULL CODE. RECOMMENDATIONS AND DISCUSSION: In this 66-year-old gentleman who presented with multiple complex medical issues, we will monitor the patient closely, continue the current medications, continue with symptomatic treatment. continue with Cardizem, continue with amiodarone. Otherwise, monitor closely. Guarded prognosis because of multiple complex medical issues. Further recommendations to follow. Follow closely with Cardiology and Pulmonology.
[2016-11-05 04:34] LABS: Basophils % (A) 0 %; CH 33.1; Eosinophils # (A) 0.1 k/uL (0-0.7); Eosinophils % (A) 1 %; HCT 47.1 % (39.0-53.0); HDW 2.29; Luc # (Auto) 0.23; Luc % (Auto) 1; Lymphocytes # (A) 2.2 k/uL (1.0-4.8); Lymphocytes % (A) 13 %; MCHC 31.8 g/dL (31.0-37.0); MCV 103.9 fL (80.0-100.0); Macrocytosis Slight; Mean Platelet Volume 7.3; Monocytes # (A) 1.5 k/uL (0-1.0); Monocytes % (A) 9 %; Neutrophils # (A) 12.2 k/uL (1.3-7.7); Neutrophils % (A) 75 %; RBC 4.53 m/uL (4.30-5.90); RDW 13.2 % (11.5-15.5); WBC 16.3 k/uL (3.8-10.6); WBC (Perox) 17.13
[2016-11-05 04:44] LABS: Anion Gap 6 mmol/L; Blood Urea Nitrogen 25 mg/dL (9-20); Calcium 8.7 mg/dL (8.4-10.2); Carbon Dioxide 37 mmol/L (22-30); Chloride 95 mmol/L (98-107); Glucose 85 mg/dL (74-99); Non-African American GFR(MDRD) >60 (>60 ml/min/1.73 sqM); Potassium 4.2 mmol/L (3.5-5.1); Sodium 138 mmol/L (137-145)
[2016-11-05 08:01] LABS: Glucose,Whole Blood 88 mg/dL (75-99)
[2016-11-05 08:20] LABS: Glucose,Whole Blood 75 mg/dL (75-99)
--- NOTE | 2016-11-05 08:27 | P.PN ---
Subjective Progress note dated the 11/04/2016 This is a 66-year-old Jomed was admitted back on October 26 with complaints of shortness of breath. He developed acute respiratory failure requiring intubation and mechanical ventilation. The patient was subsequently extubated successfully. Doing relatively well. He developed some atrial fibrillation. The patient has been anticoagulated with factor X a inhibitor. He is now back in sinus rhythm. Doing relatively well. He is just waiting to be discharged out of the unit. There is a bed crisis and so therefore the patient has not been able to be moved out of the ICU. I believe the patient stable enough today to be moved to the general medical floor with telemetry and will do that today. He currently on O2 at 5 L. He does not get any supplemental fluids. Objective - Vital Signs Vital signs: Vital Signs Temp 97.9 F 11/05/16 04:00 Pulse 79 11/05/16 04:00 Resp 16 11/05/16 04:00 BP 119/64 11/05/16 04:00 Pulse Ox 94 L 11/05/16 02:22 Intake & Output 11/04/16 11/05/16 11/05/16 18:59 06:59 18:59 Intake Total 949.334 450 Output Total 1950 325 Balance -1000.666 125 Weight 96.2 kg Intake: IV 110 30 0.9 KVO/Carrier 110 30 Intake, IV Titration 359.334 Amount Dextrose 5% in Water 250 253 ml @ 128 mls/hr IV .Q2H ONE with Amiodarone 300 mg Rx#:[id number] Diltiazem 125 mg In 106.334 Sodium Chloride 0.9% 100 ml @ 10 MG/HR 10 mls/hr IV .[id number] [facility] Rx#: [id number] Oral 480 420 Output: Urine 1950 325 Other: Voiding Method Urinal Urinal # Voids 1 1 # Bowel Movements 1 ABP, PAP, CO, CI - Last Documented Arterial Blood Pressure 177/68 - Exam No acute distress, oriented 3. HEENT examination is grossly unremarkable. Mucous membranes are moist. Supple. Full range of motion. No adenopathy. Cardiovascular examination reveals regular rhythm rate. S1-S2 normal. No S3- S4 or murmur. Lungs reveal clear breath sounds. No wheezes or rhonchi. No crackles. Abdomen soft bowel sounds are heard. Extremities are intact. - Labs CBC & Chem 7: 11/05/16 04:16 11/05/16 04:16 Labs: Abnormal Lab Results - Last 24 Hours (Table) 11/04/16 11/04/16 11/04/16 Range/Units 11:59 17:49 20:26 WBC (3.8-10.6) k/uL MCV (80.0-100.0) fL Neutrophils # (1.3-7.7) k/uL Monocytes # (0-1.0) k/uL Chloride (98-107) mmol/L Carbon Dioxide (22-30) mmol/L BUN (9-20) mg/dL POC Glucose (mg/dL) 103 H 112 H 212 H (75-99) mg/dL 11/05/16 11/05/16 Range/Units 04:16 04:16 WBC 16.3 H (3.8-10.6) k/uL MCV 103.9 H (80.0-100.0) fL Neutrophils # 12.2 H (1.3-7.7) k/uL Monocytes # 1.5 H (0-1.0) k/uL Chloride 95 L (98-107) mmol/L Carbon Dioxide 37 H (22-30) mmol/L BUN 25 H (9-20) mg/dL POC Glucose (mg/dL) (75-99) mg/dL Assessment and Plan (1) Atrial fibrillation Status: Acute (2) COPD, severe Status: Acute (3) Respiratory failure Status: Acute (4) Tachyarrhythmia Status: Acute Plan: Plan the patient's doing well. The patient can be transferred to the general medical floor with telemetry. We'll review his medications. Adjustments are made. No additional recommendations are made from my perspective. He should be disabled be discharged in the near future. Time with Patient: Less than 30
[2016-11-05] MEDS: INSULIN LISPRO (humaLOG) 300 UNIT/3 ML VIAL SQ SCH ×4 (08:30→20:59)
[2016-11-05] MEDS: METOPROLOL SUCCINATE (ER) 50 MG TAB.ER.24H PO SCH (08:30)
[2016-11-05] MEDS: PANTOPRAZOLE 40 MG TABLET PO SCH (08:31)
[2016-11-05] MEDS: FUROSEMIDE 20 MG TAB PO SCH ×2 (08:31→16:35)
[2016-11-05] MEDS: LEVOFLOXACIN 750 MG TAB PO SCH (08:31)
[2016-11-05] MEDS: SPIRONOLACTONE 25 MG TAB PO SCH (08:32)
[2016-11-05] MEDS: predniSONE 10 MG TAB PO SCH (08:32)
[2016-11-05] MEDS: LEVALBUTEROL NEB (CONC) 1.25 MG/0.5 ML AMP INHALATION SCH ×4 (08:53→20:52)
[2016-11-05] MEDS: IPRATROPIUM 0.5 MG/2.5 ML NEBU INHALATION SCH ×4 (08:53→20:52)
[2016-11-05] MEDS: LISINOPRIL 2.5 MG TAB PO SCH (08:54)
[2016-11-05] MEDS: BUDESONIDE 0.5 MG/2 ML NEBU INHALATION SCH (09:07)
--- NOTE | 2016-11-05 09:15 | XR ---
EXAMINATION TYPE: XR chest 1V portable DATE OF EXAM: 11/05/2016 6:37 AM COMPARISON: Prior chest x-ray October HISTORY: Abnormal chest x-ray, pneumonia, congestive heart failure TECHNIQUE: Single frontal view of the chest is obtained. FINDINGS: Patient is rotated. There are overlying cardiac leads. Heart is enlarged. Bibasilar densit y persists. No evident pneumothorax. No sizable effusion. Pulmonary vascularity and gorge are stable. IMPRESSION: Basilar atelectasis versus edema, correlate to exclude pneumonia, small effusion.
[2016-11-05 11:31] LABS: Glucose,Whole Blood 113 mg/dL (75-99)
[2016-11-05] MEDS: MULTIVITAMINS, THERA 1 EACH TAB PO SCH (12:57)
[2016-11-05] MEDS: FOLIC ACID 1 MG TAB PO SCH (12:57)
[2016-11-05] MEDS: THIAMINE 100 MG TAB PO SCH (12:57)
--- NOTE | 2016-11-05 16:26 | P.PN ---
Progress Note - Text Per the patient's 's request I saw him again to discuss management of atrial fibrillation. Impression Atrial tachycardia with ventricular rates of 135 beats a minute. Negatively oriented P waves in the inferior leads, possible total 1 atrial tachycardia Symptomatic atrial fibrillation with negatively oriented flutter-like waves in the inferior leads with a ventricular rate of 175 beats a minute more consistent with an atrial tachycardia/atrial fibrillation, organized. 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 Quarles Management of total 1 atrial tachycardia possibly with an ablation but I will hold off on this right now since he is still recovering from his COPD exacerbation Avoid amiodarone Avoid sotalol Avoid class on antiarrhythmic drug Continue Rivaroxaban Speak to Dr. Quarles regarding the question of MRSA Workup of cardio myopathy, management of cardio myopathy. Increase metoprolol to 75 mg twice daily, increase lisinopril to 5 mg daily and continue spironolactone Add atorvastatin 20 mg a day Decision regarding ICD implant are not in the future based upon cardio myopathy results
[2016-11-05 17:26] LABS: Glucose,Whole Blood 114 mg/dL (75-99)
[2016-11-05] MEDS: RIVAROXABAN 10 MG TAB PO SCH (17:40)
[2016-11-05] MEDS: METOPROLOL SUCCINATE (ER) 25 MG TAB.ER.24H PO SCH (17:43)
--- NOTE | 2016-11-05 19:21 | PN ---
DATE OF SERVICE: 11/05/2016 This 66-year-old gentleman, admitted with COPD, acute exacerbation, also had atrial fibrillation with a fast ventricular rate, rather paroxysmal in nature. Dr. Liao is following the patient closely. The most recent chest x-ray shows bibasilar atelectasis. On exam, alert and oriented x3. The pulse is 81, blood pressure 133/82, respiration 18, temperature 98.7, pulse ox 94% on 5 L. HEENT: Conjunctivae normal. Oral mucosa moist. NECK: No jugular venous distention. No carotid bruit. No lymph node enlargement. CARDIOVASCULAR SYSTEM: S1, S2 muffled. RESPIRATORY SYSTEM: Breath sounds diminished at the bases. Bilateral scattered rhonchi and expiratory wheezing also present. ABDOMEN: Soft, non-tender. No mass palpable. LEGS: No edema. No swelling. NERVOUS SYSTEM: No focal deficit. Labs at this time show WBC 16.3. Hemoglobin is 15. Glucose 113. ASSESSMENT: 1. Shortness of breath, possibly multifactorial, with chronic obstructive pulmonary disease, acute exacerbation, with acute bibasilar pneumonia, possibly strep pneumonia, with possible sepsis, present on admission. 2. Congestive heart failure, acute exacerbation, with acute on chronic systolic dysfunction, ejection fraction 30% to 35%, possibly secondary to cardiomyopathy. 3. Acute hypoxic hypercarbic respiratory failure secondary to #1 and #2, status post mechanical ventilation. 4. Status post BiPAP, currently on nasal cannula. 5. Atrial fibrillation with fast ventricular rate, paroxysmal. 6. Change in mental status, metabolic encephalopathy, multifactorial, as mentioned earlier. 7. History of nicotine dependence. 8. Atrial flutter with rapid ventricular response, present on admission. 9. Paroxysmal atrial fibrillation. 10. History of chronic respiratory failure, hypoxic, on home oxygen. 11. History of chronic obstructive pulmonary disease. 12. Obesity. 13. History of glaucoma. 14. History of nicotine dependence. 15. On Xarelto. 16. FULL CODE. RECOMMENDATIONS AND DISCUSSION: In this 66-year-old gentleman who presented with multiple complex medical issues, we will monitor the patient closely, continue the current medication, continue with symptomatic treatment, continue with the bronchodilators. Closely follow with Pulmonary. Increase ambulation. Cardiology is following the patient closely. Further recommendations to follow.
[2016-11-05 20:09] LABS: Glucose,Whole Blood 148 mg/dL (75-99)
[2016-11-05] MEDS: SYMBICORT 160-4.5 MCG INHALER INHALATION SCH (20:52)
[2016-11-05] MEDS: LATANOPROST 0.005% OPHTH DROPS 2.5 ML BTL BOTH EYES SCH (20:59)
--- NOTE | 2016-11-05 21:13 | PN ---
Please see my impression and plan on separate dictation. Reginald is doing well. He is lying flat in bed. He does not have any fever or chills. He does not appear short of breath. He is afebrile. His respirations are labored 18 per minute. Blood pressure 142/69 millimeters of mercury. Breath sounds at the air entry is quite poor bilaterally. Heart sounds S1, S2 are soft. He is in normal rhythm at this time. IMPRESSION AND PLAN: Please see the other dictation. I have increased Lisinopril to 5 mg daily and we will increase metoprolol to 75 mg twice daily. I would not recommend oral amiodarone. I would not recommend oral sotalol. Rate control only at this time.
[2016-11-06] MEDS: METOPROLOL SUCCINATE (ER) 25 MG TAB.ER.24H PO SCH ×2 (05:21→17:21)
[2016-11-06 07:12] LABS: Glucose,Whole Blood 100 mg/dL (75-99)
[2016-11-06] MEDS: INSULIN LISPRO (humaLOG) 300 UNIT/3 ML VIAL SQ SCH ×4 (07:22→20:56)
[2016-11-06] MEDS: FUROSEMIDE 20 MG TAB PO SCH ×2 (07:28→17:21)
[2016-11-06] MEDS: FOLIC ACID 1 MG TAB PO SCH (07:28)
[2016-11-06] MEDS: LEVOFLOXACIN 750 MG TAB PO SCH (07:28)
[2016-11-06] MEDS: ATORVASTATIN 20 MG TAB PO SCH (07:28)
[2016-11-06] MEDS: predniSONE 10 MG TAB PO SCH (07:28)
[2016-11-06] MEDS: SPIRONOLACTONE 25 MG TAB PO SCH (07:28)
[2016-11-06] MEDS: LISINOPRIL 5 MG TAB PO SCH (07:29)
[2016-11-06] MEDS: MULTIVITAMINS, THERA 1 EACH TAB PO SCH (07:29)
[2016-11-06] MEDS: THIAMINE 100 MG TAB PO SCH (07:29)
[2016-11-06] MEDS: PANTOPRAZOLE 40 MG TABLET PO SCH (07:29)
[2016-11-06 07:51] LABS: Basophils # (A) 0.1 k/uL (0-0.2); Basophils % (A) 0 %; CH 33.1; CHCM 32.2; Eosinophils # (A) 0.4 k/uL (0-0.7); Eosinophils % (A) 3 %; HCT 45.1 % (39.0-53.0); HDW 2.27; HGB 14.5 gm/dL (13.0-17.5); Luc # (Auto) 0.16; Luc % (Auto) 1; Lymphocytes # (A) 2.3 k/uL (1.0-4.8); Lymphocytes % (A) 15 %; MCH 33.2 pg (25.0-35.0); MCHC 32.1 g/dL (31.0-37.0); MCV 103.3 fL (80.0-100.0); Macrocytosis Slight; Monocytes # (A) 1.6 k/uL (0-1.0); Monocytes % (A) 10 %; Neutrophils # (A) 11.1 k/uL (1.3-7.7); Neutrophils % (A) 71 %; RBC 4.37 m/uL (4.30-5.90); RDW 13.1 % (11.5-15.5); WBC 15.6 k/uL (3.8-10.6); WBC (Perox) 15.74
[2016-11-06 08:08] LABS: Anion Gap 8 mmol/L; Blood Urea Nitrogen 18 mg/dL (9-20); Calcium 8.6 mg/dL (8.4-10.2); Carbon Dioxide 37 mmol/L (22-30); Chloride 95 mmol/L (98-107); Glucose 102 mg/dL (74-99); Non-African American GFR(MDRD) >60 (>60 ml/min/1.73 sqM); Potassium 3.5 mmol/L (3.5-5.1); Sodium 140 mmol/L (137-145)
--- NOTE | 2016-11-06 08:35 | XR ---
EXAMINATION TYPE: XR chest 1V portable DATE OF EXAM: 11/06/2016 6:29 AM COMPARISON: 11/05/2016 HISTORY: Shortness of breath TECHNIQUE: Single frontal view of the chest is obtained. FINDINGS: Subsegmental changes at both lung bases. No pneumothorax. No overt failure. Tiny bilateral effusions. IMPRESSION: 1. Basilar atelectasis or infiltrate and tiny effusions are stable.
[2016-11-06] MEDS: LEVALBUTEROL NEB (CONC) 1.25 MG/0.5 ML AMP INHALATION SCH ×4 (08:49→23:40)
[2016-11-06] MEDS: SYMBICORT 160-4.5 MCG INHALER INHALATION SCH ×2 (08:49→23:41)
[2016-11-06] MEDS: IPRATROPIUM 0.5 MG/2.5 ML NEBU INHALATION SCH ×4 (08:49→23:40)
--- NOTE | 2016-11-06 11:12 | P.PN ---
Subjective Progress note dated the 11/04/2016 This is a 66-year-old Jomed was admitted back on October 26 with complaints of shortness of breath. He developed acute respiratory failure requiring intubation and mechanical ventilation. The patient was subsequently extubated successfully. Doing relatively well. He developed some atrial fibrillation. The patient has been anticoagulated with factor X a inhibitor. He is now back in sinus rhythm. Doing relatively well. He is just waiting to be discharged out of the unit. There is a bed crisis and so therefore the patient has not been able to be moved out of the ICU. I believe the patient stable enough today to be moved to the general medical floor with telemetry and will do that today. He currently on O2 at 5 L. He does not get any supplemental fluids. Progress note dated 11/06/2016 This patient's doing better. Was transferred out of the ICU yesterday. Has a history of acute respiratory failure. He did spend some time on the mechanical ventilator. Also has a history of atrial fibrillation with rapid ventricular response. Currently on a factor X a inhibitor. The patient's overall breathing status has improved. I did college counselor the patient extensively about the importance of smoking cessation. He does seem to understand. I did this with family members had at the bedside. Other than that things are going reasonably well. His oxygen requirements have been reduced. The patient does feel better. Objective - Vital Signs Vital signs: Vital Signs Temp 98.3 F 11/06/16 07:00 Pulse 73 11/06/16 07:00 Resp 18 11/06/16 07:33 BP 94/55 11/06/16 07:00 Pulse Ox 96 11/06/16 07:00 Intake & Output 11/05/16 11/06/16 11/06/16 18:59 06:59 18:59 Intake Total 420 Output Total 840 Balance -420 Weight 92.5 kg Intake: Oral 420 Output: Urine 840 Other: Voiding Method Toilet Toilet Toilet Urinal Urinal Urinal # Voids 1 2 ABP, PAP, CO, CI - Last Documented Arterial Blood Pressure 177/68 - Exam No acute distress, oriented 3. HEENT examination is grossly unremarkable. Mucous membranes are moist. Supple. Full range of motion. No adenopathy. Cardiovascular examination reveals regular rhythm rate. S1-S2 normal. No S3- S4 or murmur. Lungs reveal clear breath sounds. No wheezes or rhonchi. No crackles. Abdomen soft bowel sounds are heard. Extremities are intact. Physical exam dated 11/06/2016 No acute distress, oriented 3. HEENT examination is grossly unremarkable. Mucous membranes are moist. No oral lesions. Neck supple. Full range of motion. Cardiovascular examination reveals regular rhythm rate. Lungs reveal diminished breath sounds. A few scattered rhonchi. No crackles. No wheezes. Abdomen soft bowel sounds are heard. Extremities are intact. - Labs CBC & Chem 7: 11/06/16 07:35 11/06/16 07:35 Labs: Abnormal Lab Results - Last 24 Hours (Table) 11/05/16 11/05/16 11/05/16 Range/Units 11:18 17:11 20:07 WBC (3.8-10.6) k/uL MCV (80.0-100.0) fL Neutrophils # (1.3-7.7) k/uL Monocytes # (0-1.0) k/uL Chloride (98-107) mmol/L Carbon Dioxide (22-30) mmol/L Glucose (74-99) mg/dL POC Glucose (mg/dL) 113 H 114 H 148 H (75-99) mg/dL 11/06/16 11/06/16 11/06/16 Range/Units 07:03 07:35 07:35 WBC 15.6 H (3.8-10.6) k/uL MCV 103.3 H (80.0-100.0) fL Neutrophils # 11.1 H (1.3-7.7) k/uL Monocytes # 1.6 H (0-1.0) k/uL Chloride 95 L (98-107) mmol/L Carbon Dioxide 37 H (22-30) mmol/L Glucose 102 H (74-99) mg/dL POC Glucose (mg/dL) 100 H (75-99) mg/dL Assessment and Plan (1) Atrial fibrillation Status: Acute (2) COPD, severe Status: Acute (3) Respiratory failure Status: Acute (4) Tachyarrhythmia Status: Acute Plan: Plan the patient's doing well. The patient can be transferred to the general medical floor with telemetry. We'll review his medications. Adjustments are made. No additional recommendations are made from my perspective. He should be disabled be discharged in the near future. Plan dated 11/06/2016 The patient is being readied for possible discharge. The patient should follow up with us in the office. He'll need a full pulmonary function test. I've counseled the patient extensively about smoking cessation. No additional recommendations are made. The patient should be discharged home on the usual medications for somebody with COPD as well as a short prednisone burst and taper. Additional recommendations suggestions are forthcoming. Time with Patient: Less than 30
[2016-11-06 12:14] LABS: Glucose,Whole Blood 115 mg/dL (75-99)
--- NOTE | 2016-11-06 12:39 | PN ---
The patient is admitted with COPD exacerbation and atrial fibrillation and patient is clinically doing well. Patient also appears to have had congestive heart failure exacerbation. Patient ejection fraction around 30% to 35%. Patient is clinically doing well and patient is still requiring 5 liters of oxygen. Our aim is to taper down the oxygen and if he is feeling well patient probably can be discharged tomorrow. In the meantime, we will make sure patient will not need any physical therapy requirements. REVIEW OF SYSTEMS: CARDIOVASCULAR: No chest pain, no orthopnea, no PND, no palpitations. PULMONARY: Denied any shortness of breath. No cough or hemoptysis. GASTROINTESTINAL: No diarrhea, nausea or vomiting. No abdominal pain. Normoactive bowel sounds. NEUROLOGIC: No headaches, no weakness, no numbness. Medications were reviewed. PHYSICAL EXAMINATION: VITAL SIGNS: Temperature 98.3, pulse of 73, respiratory rate of 18, blood pressure is 94/55, saturating at 96% on room air. GENERAL: The patient is alert and oriented x3, not in any acute distress. Well developed, well nourished. HEENT: Pupils are round and equally reacting to light. EOMI. No scleral icterus. No conjunctival pallor. Normocephalic, atraumatic. No pharyngeal erythema. No thyromegaly. CARDIOVASCULAR: S1 and S2 present. No murmurs, rubs, or gallops. PULMONARY: Chest is clear to auscultation, no wheezing or crackles. ABDOMEN: Soft, nontender, nondistended, normoactive bowel sounds. No palpable organomegaly. MUSCULOSKELETAL: No joint swelling or deformity. EXTREMITIES: No cyanosis, clubbing, or pedal edema. NEUROLOGICAL: Gross neurological examination did not reveal any focal deficits. SKIN: No rashes. LABORATORY DATA: CBC, CMP abnormal for elevated WBC count of 15,600, ( ) systemic steroids. ASSESSMENT AND PLAN: 1. Shortness of breath, multifactorial, including congestive heart failure as well as chronic obstructive pulmonary disease acute exacerbation. Patient is on treatment for both of these. Patient has acute hypoxic respiratory failure. 2. Congestive heart failure, chronic systolic dysfunction; ejection fraction of 30% to 35%. Patient is fairly euvolemic at this point of time. Patient was started on Lisinopril by cardiology. 3. Possible chronic hypercapnic respiratory failure. Patient is supposed to use oxygen, did not start using oxygen at home yet. 4. Atrial fibrillation, rate controlled at this point of time. Continue with his home medications. Patient is on anticoagulation with Xarelto.
[2016-11-06 17:01] LABS: Glucose,Whole Blood 107 mg/dL (75-99)
[2016-11-06] MEDS: RIVAROXABAN 10 MG TAB PO SCH (17:21)
[2016-11-06 20:29] LABS: Glucose,Whole Blood 147 mg/dL (75-99)
[2016-11-06] MEDS: LATANOPROST 0.005% OPHTH DROPS 2.5 ML BTL BOTH EYES SCH (20:55)
[2016-11-07] MEDS: METOPROLOL SUCCINATE (ER) 25 MG TAB.ER.24H PO SCH (05:47)
[2016-11-07] MEDS: IPRATROPIUM 0.5 MG/2.5 ML NEBU INHALATION SCH ×3 (06:50→14:56)
[2016-11-07] MEDS: SYMBICORT 160-4.5 MCG INHALER INHALATION SCH (06:50)
[2016-11-07] MEDS: LEVALBUTEROL NEB (CONC) 1.25 MG/0.5 ML AMP INHALATION SCH ×3 (06:50→14:56)
[2016-11-07 07:40] LABS: Glucose,Whole Blood 82 mg/dL (75-99)
[2016-11-07] MEDS: FUROSEMIDE 20 MG TAB PO SCH (08:15)
[2016-11-07] MEDS: INSULIN LISPRO (humaLOG) 300 UNIT/3 ML VIAL SQ SCH ×2 (08:15→11:44)
[2016-11-07] MEDS: ATORVASTATIN 20 MG TAB PO SCH (08:15)
[2016-11-07] MEDS: PANTOPRAZOLE 40 MG TABLET PO SCH (08:15)
[2016-11-07] MEDS: LEVOFLOXACIN 750 MG TAB PO SCH (08:16)
[2016-11-07] MEDS: predniSONE 10 MG TAB PO SCH (08:16)
[2016-11-07] MEDS: LISINOPRIL 5 MG TAB PO SCH (08:16)
[2016-11-07] MEDS: FOLIC ACID 1 MG TAB PO SCH (08:16)
[2016-11-07] MEDS: SPIRONOLACTONE 25 MG TAB PO SCH (08:16)
[2016-11-07 09:17] LABS: Basophils % (A) 0 %; CH 32.9; CHCM 31.5; Eosinophils # (A) 0.5 k/uL (0-0.7); Eosinophils % (A) 4 %; HCT 47.1 % (39.0-53.0); HDW 2.27; HGB 14.9 gm/dL (13.0-17.5); Luc % (Auto) 2; Lymphocytes # (A) 2.8 k/uL (1.0-4.8); Lymphocytes % (A) 21 %; MCH 33.2 pg (25.0-35.0); MCHC 31.7 g/dL (31.0-37.0); MCV 104.7 fL (80.0-100.0); Macrocytosis Slight; Mean Platelet Volume 7.1; Monocytes # (A) 1.1 k/uL (0-1.0); Monocytes % (A) 8 %; Neutrophils # (A) 8.8 k/uL (1.3-7.7); Neutrophils % (A) 65 %; RDW 12.9 % (11.5-15.5); WBC 13.4 k/uL (3.8-10.6); WBC (Perox) 13.67
[2016-11-07 09:22] LABS: Anion Gap 10 mmol/L; Blood Urea Nitrogen 15 mg/dL (9-20); Calcium 8.6 mg/dL (8.4-10.2); Carbon Dioxide 34 mmol/L (22-30); Chloride 96 mmol/L (98-107); Glucose 102 mg/dL (74-99); Non-African American GFR(MDRD) >60 (>60 ml/min/1.73 sqM); Potassium 3.7 mmol/L (3.5-5.1); Sodium 140 mmol/L (137-145)
[2016-11-07] MEDS: THIAMINE 100 MG TAB PO SCH (11:49)
[2016-11-07] MEDS: MULTIVITAMINS, THERA 1 EACH TAB PO SCH (11:49)
--- NOTE | 2016-11-07 13:33 | P.PN ---
Subjective Principal diagnosis: Ventilatory dependent respiratory failure secondary to COPD exacerbation, atrial fibrillation with rapid ventricular response This is a very pleasant 66-year-old male patient who was admitted back 10/26/16 with complaints of shortness of breath. He had subsequently developed acute respiratory failure requiring intubation and mechanical ventilatory support that same day. This subsequently been successfully extubated. He is seen again today 11/07/16 in follow-up on the regular medical floor. He is awake and alert in no acute distress. He is sitting up in the chair at the bedside. He denies any worsening shortness of breath, cough or congestion. His chest x-ray continued to show some basilar effusions but overall improvement in the volume status. He is maintaining good O2 saturations in the upper 90s on 2 L/m per nasal cannula. He's been afebrile. He has had ongoing issues with atrial fibrillation. He is anticoagulated with Xarelto. His insurance is not covering the Xarelto and he may need to be switched to another agent. Otherwise he is cleared for discharge from the pulmonary standpoint. Objective - Vital Signs Vital signs: Vital Signs Temp 97.5 F L 11/07/16 07:00 Pulse 84 11/07/16 11:04 Resp 18 11/07/16 07:00 BP 103/60 11/07/16 07:00 Pulse Ox 81 L 11/07/16 10:14 Intake & Output 11/06/16 11/07/16 11/07/16 18:59 06:59 18:59 Intake Total 240 Balance 240 Weight 91 kg Intake: Oral 240 Other: Voiding Method Toilet Toilet Toilet Urinal Urinal Urinal # Voids 2 1 ABP, PAP, CO, CI - Last Documented Arterial Blood Pressure 177/68 - Exam GENERAL EXAM: Alert, active, comfortable in no apparent distress. HEAD: Normocephalic. EYES: Normal reaction of pupils, equal size. NOSE: Clear with pink turbinates. THROAT: No erythema or exudates. NECK: No masses, no JVD. CHEST: No chest wall deformity. LUNGS: Equal air entry with faint end expiratory wheeze. Diminished throughout. CVS: S1 and S2 normal with no audible murmurs, irregular rhythm. ABDOMEN: No hepatosplenomegaly, normal bowel sounds, no guarding or rigidity. SPINE: No scoliosis or deformity SKIN: No rashes CENTRAL NERVOUS SYSTEM: No focal deficits, tone is normal in all 4 extremities. Extremities: There is trace peripheral edema. No clubbing, no cyanosis. Peripheral pulses are intact. - Labs CBC & Chem 7: 11/07/16 08:25 11/07/16 08:25 Labs: Abnormal Lab Results - Last 24 Hours (Table) 11/06/16 11/06/16 11/07/16 Range/Units 16:55 20:23 08:25 WBC 13.4 H (3.8-10.6) k/uL MCV 104.7 H (80.0-100.0) fL Neutrophils # 8.8 H (1.3-7.7) k/uL Monocytes # 1.1 H (0-1.0) k/uL Chloride (98-107) mmol/L Carbon Dioxide (22-30) mmol/L Glucose (74-99) mg/dL POC Glucose (mg/dL) 107 H 147 H (75-99) mg/dL 11/07/16 Range/Units 08:25 WBC (3.8-10.6) k/uL MCV (80.0-100.0) fL Neutrophils # (1.3-7.7) k/uL Monocytes # (0-1.0) k/uL Chloride 96 L (98-107) mmol/L Carbon Dioxide 34 H (22-30) mmol/L Glucose 102 H (74-99) mg/dL POC Glucose (mg/dL) (75-99) mg/dL Assessment and Plan Plan: Impression: #1 Acute respiratory failure secondary to COPD exacerbation and Streptococcus pneumoniae pneumonia initially requiring intubation mechanical ventilatory support. Successfully extubated and recovered. #2 Acute on chronic hypoxic respiratory failure secondary to COPD. #3 Atrial fibrillation with rapid ventricular response, currently back on Cardizem drip at 10 mg per hour. #4 Chronic and ongoing tobacco dependence. Plan: The patient was seen and evaluated by Dr. Liao. He is currently stable from the pulmonary standpoint. We'll continue with his bronchodilators and Pulmicort inhalations. He is on antibiotics in the form of Levaquin. He remains on diuretics. He remains anticoagulated with Xarelto. He is on Protonix for GI prophylaxis. Cardiology is managing the atrial fibrillation. He is again educated regarding the importance of complete smoking cessation. He is cleared for discharge. He will follow-up with Dr. Quarles in our office in 1-2 weeks' time. If not home today, will see the patient on as-needed basis.
[2016-11-07 16:28] VITALS: BP 131/81; PULSE 64; RESP 18; TEMP 97.1
--- NOTE | 2016-11-08 08:20 | DS ---
DATE OF ADMISSION: 10/26/2016 DATE OF DISCHARGE: 11/07/2016 The patient was admitted with COPD exacerbation and atrial fibrillation. Patient is rate controlled at this point of time. Patient is being discharged today. The patient was also treated for congestive heart failure, ejection fraction of 30% to 35%. Patient is being discharged on Xarelto. Patient is otherwise clinically doing well. Patient was seen and examined on the day of discharge. Vitals are stable. PHYSICAL EXAMINATION: GENERAL: The patient is alert and oriented x3, not in any acute distress. Well developed, well nourished. HEENT: Pupils are round and equally reacting to light. EOMI. No scleral icterus. No conjunctival pallor. Normocephalic, atraumatic. No pharyngeal erythema. No thyromegaly. CARDIOVASCULAR: S1 and S2 present. No murmurs, rubs, or gallops. PULMONARY: Chest is clear to auscultation, no wheezing or crackles. ABDOMEN: Soft, nontender, nondistended, normoactive bowel sounds. No palpable organomegaly. MUSCULOSKELETAL: No joint swelling or deformity. EXTREMITIES: No cyanosis, clubbing, or pedal edema. NEUROLOGICAL: Gross neurological examination did not reveal any focal deficits. SKIN: No rashes. Patient is requiring oxygen. ASSESSMENT AND PLAN: 1. Multifactorial shortness of breath and dyspnea due to acute hypoxic respiratory failure secondary to chronic obstructive pulmonary disease exacerbation as well as congestive heart failure exacerbation and atrial fibrillation; all of which improved. 2. Congestive heart failure, chronic systolic dysfunction with ejection fraction of 30% to 35%. Patient is euvolemic. 3. Atrial fibrillation, possible chronic hypercapnic respiratory failure. Patient is requiring home oxygen. Patient will be discharged on 2 L of oxygen. Please refer to my depart summary for further details of discharge medications. Activity as tolerated. Cardiac diet. Patient will follow with Dr. Villa Thomas in one week and Dr. Bran Quarles in one week and patient's family said they will find a primary doctor close to their house, which I tried to do, but unable to find any physician around the place where they live. Spent greater than 35 minutes in total discharge process.
== END 2016-11-07 16:35 | disposition home or self-care (01) | DRG 870 ==
LOC: EC 10:11 → 6ICU 12:14 → 5MS5E 11-05 09:23
PROVIDERS: ADMIT Hospitalist; ATTEND Hospitalist
PROC: 4A133J1 Monitoring of Arterial Pulse, Peripheral, Percutaneous Approach (ICD-10-PCS; principal; 2016-10-26)
PROC: 05H633Z Insertion of Infusion Device into Left Subclavian Vein, Percutaneous Approach (ICD-10-PCS; principal; 2016-10-26)
PROC: 03HY32Z Insertion of Monitoring Device into Upper Artery, Percutaneous Approach (ICD-10-PCS; principal; 2016-10-26)
PROC: 4A133B1 Monitoring of Arterial Pressure, Peripheral, Percutaneous Approach (ICD-10-PCS; principal; 2016-10-26)
PROC: 5A1955Z Respiratory Ventilation, Greater than 96 Consecutive Hours (ICD-10-PCS; 2016-10-26)
PROC: 0BH17EZ Insertion of Endotracheal Airway into Trachea, Via Natural or Artificial Opening (ICD-10-PCS; 2016-10-26)
DX: A41.9 Sepsis, unspecified organism (principal); J96.21 Acute and chronic respiratory failure with hypoxia; R65.21 Severe sepsis with septic shock; G93.41 Metabolic encephalopathy; I50.23 Acute on chronic systolic (congestive) heart failure; J13 Pneumonia due to Streptococcus pneumoniae; J44.0 Chronic obstructive pulmonary disease with (acute) lower respiratory infection; E87.4 Mixed disorder of acid-base balance; I11.0 Hypertensive heart disease with heart failure; J96.22 Acute and chronic respiratory failure with hypercapnia; I42.9 Cardiomyopathy, unspecified; I47.1 Supraventricular tachycardia; I48.92 Unspecified atrial flutter; J44.1 Chronic obstructive pulmonary disease with (acute) exacerbation; J98.11 Atelectasis; F17.210 Nicotine dependence, cigarettes, uncomplicated; G47.33 Obstructive sleep apnea (adult) (pediatric); H40.9 Unspecified glaucoma; I48.0 Paroxysmal atrial fibrillation; J98.01 Acute bronchospasm; Y95 Nosocomial condition; Z79.01 Long term (current) use of anticoagulants; Z86.59 Personal history of other mental and behavioral disorders; Z99.81 Dependence on supplemental oxygen; Z79.899 Other long term (current) drug therapy
CPT/HCPCS: 31500; 36415; 71010; 80048; 80053; 81001; 82550; 82553; 82805; 83036; 83735; 84100; 84132; 84443; 84484; 85025; 85379; 85610; 85730; 87070; 87077; 87186; 87205; 93005; 93306; 94002; 94003; 94640; 94660; 96361; 96365; 96368; 96375; 96376; 99291

== ENCOUNTER → 2016-11-11 | Outpatient (CLI) | payer BC ==
[2016-11-11 13:42] LABS: INR 1.1 (<1.1); Prothrombin Time 11.2 sec (9.0-12.0)
== END | disposition home or self-care (01) ==
LOC: LABWHC1 13:13
PROVIDERS: ATTEND Internal Medicine
DX: Z51.81 Encounter for therapeutic drug level monitoring (principal); Z79.01 Long term (current) use of anticoagulants
CPT/HCPCS: 36415; 85610

== ENCOUNTER 2017-05-07 07:34 | Day surgery (SDC) | payer MEDICARE, BC ==
[2017-05-01 09:45] VITALS: BMI 32.5
[~2017-05-07 07:34] MED LIST: LACTATED RINGERS 1,000 ML IV SCH; LIDOCAINE 1% 20 ML VIAL (10MG/ML) FOR IV START INTRADERMA PRN
[2017-05-07 08:24] VITALS: RESP 16; TEMP 97.9
[2017-05-07] MEDS ORDERED: LIDOCAINE 1% 20 ML VIAL (10MG/ML) FOR IV START INTRADERMA ONE (08:32)
[2017-05-07] MEDS ORDERED: PROPOFOL 10 MG/ML 20 ML VIAL IV ONE (08:55)
--- NOTE | 2017-05-07 09:13 | P.PCN ---
Date of Procedure: 05/07/17 Preoperative Diagnosis: Postoperative Diagnosis: Procedure(s) Performed: BRIEF HISTORY: Patient is a 67-year-old pleasant white male, scheduled for an elective colonoscopy as a part of intermittent rectal bleed for the last 2 months duration. PROCEDURE PERFORMED: Colonoscopy and snare polypectomy. PREOPERATIVE DIAGNOSIS: Rectal bleeding. IV sedation per Anesthesia. PROCEDURE: After informed consent was obtained, the patient, was brought into the endoscopy unit. IV sedation was administered by Anesthesia under continuous monitoring. Digital rectal examination was normal. Initially the Olympus CF- 160 flexible video colonoscope was then inserted in the rectum, gradually advanced into the cecum without any difficulty. Careful examination was performed as the scope was gradually being withdrawn. Ileocecal valve and the appendiceal orifice were visualized and appeared normal. Prep was excellent. Mucosa of the cecum, appeared normal. In the ascending colon there was a 1 cm and 2 cm broad-based polyps removed by snare polypectomy. In the transverse colon there was a 1 cm polyp removed by snare polypectomy. The rest of the ascending colon, transverse colon, appeared normal. In the descending colon there was a 1 cm polyp removed by snare polypectomy. in the sigmoid colon there was a 5 mm polyp that was removed by snare polypectomy and in the rectum; there was a 2 cm pancreatic polyp removed by snare polypectomy. The rectum appeared normal. Scattered sigmoid diverticulosis seen. Retroflexion was performed in the rectum and no lesions were seen. The patient tolerated the procedure well. IMPRESSION: 1 cm and 2 cm broad-based ascending colon polyp status post polypectomy 1 cm transverse colon polyp serous was snare polypectomy 1 cm descending colon polyp status post polypectomy 5 mm and 2 cm pedunculated sigmoid polyp and rectal sigmoid polyp respectively status post snare polypectomy Scattered sigmoid diverticulosis RECOMMENDATIONS: Findings of this examination were discussed with the patient as well as his family. He was advised to follow with the biopsy results. He was advised to resume Coumadin in 3 days. If the biopsy of the colon polyps show tubal adenoma he can have a repeat in 3 years Implants: Indications for Procedure: Operative Findings: Description of Procedure:
[2017-05-07 09:31] VITALS: PULSE 88
[2017-05-07 09:33] VITALS: BP 123/81
== END 2017-05-07 09:56 | disposition home or self-care (01) ==
LOC: ORWHC2ENDO 07:34
PROVIDERS: ATTEND Internal Medicine Gastroenterology
DX: D12.3 Benign neoplasm of transverse colon (principal); D12.5 Benign neoplasm of sigmoid colon; D12.2 Benign neoplasm of ascending colon; D12.7 Benign neoplasm of rectosigmoid junction; K57.30 Diverticulosis of large intestine without perforation or abscess without bleeding; Z87.19 Personal history of other diseases of the digestive system; I11.0 Hypertensive heart disease with heart failure; I50.9 Heart failure, unspecified; I48.91 Unspecified atrial fibrillation; J44.9 Chronic obstructive pulmonary disease, unspecified; F17.200 Nicotine dependence, unspecified, uncomplicated; Z79.899 Other long term (current) drug therapy; Z79.01 Long term (current) use of anticoagulants
CPT/HCPCS: 88305; 45385; J2704

== ENCOUNTER → 2017-05-21 | Outpatient (CLI) | payer MEDICARE, BC ==
[2017-05-21 12:55] LABS: ALT 44 U/L (21-72); AST 24 U/L (17-59); Alkaline Phosphatase 85 U/L (38-126); Anion Gap 10 mmol/L; Blood Urea Nitrogen 14 mg/dL (9-20); Calcium 9.6 mg/dL (8.4-10.2); Carbon Dioxide 30 mmol/L (22-30); Chloride 99 mmol/L (98-107); Glucose 99 mg/dL (74-99); Non-African American GFR(MDRD) >60 (>60 ml/min/1.73 sqM); Potassium 4.3 mmol/L (3.5-5.1); Sodium 139 mmol/L (137-145); Total Bilirubin 0.3 mg/dL (0.2-1.3); Total Protein 6.7 g/dL (6.3-8.2)
== END ==
LOC: LABWHC1 11:59
PROVIDERS: ATTEND Internal Medicine Clinical Cardiac Electrophysiology
DX: I48.91 Unspecified atrial fibrillation (principal)
CPT/HCPCS: 36415; 80053; 84443

== ENCOUNTER 2018-08-21 11:31 | Inpatient (IN) | payer MEDICARE, BC ==
[2018-08-21] MEDS ORDERED: methylPREDNISolone SOD SUCCI 125 MG/2 ML VIAL IV STA (12:06)
[2018-08-21] MEDS ORDERED: IPRATROPIUM 0.5 MG/2.5 ML NEBU INHALATION STA (12:06)
[2018-08-21] MEDS ORDERED: ALBUTEROL NEBULIZED 2.5 MG/3 ML INHALATION STA (12:06)
--- NOTE | 2018-08-21 12:13 | ED ---
General Adult HPI - General Chief complaint: Shortness of Breath Stated complaint: LOW PULSE Time Seen by Provider: 08/21/18 11:55 Source: patient, RN notes reviewed, old records reviewed Mode of arrival: wheelchair - History of Present Illness Initial comments: 68 -year-old male presenting for evaluation of cough and dyspnea. Patient has history of COPD. States symptoms have progressed over the past 2 weeks. This morning he felt somewhat lightheaded and weak. Denies chest pain today. States he had chest pain one to 2 weeks ago. No history of CAD. Patient denies fever or chills. Cough is nonproductive. - Related Data Home Medications Medication Instructions Recorded Confirmed Latanoprost [Xalatan 0.005%] 1 drop BOTH EYES HS 10/26/16 08/21/18 Atorvastatin [Lipitor] 20 mg PO HS 05/02/17 08/21/18 Fluticasone/Vilanterol [Breo 1 inhalation INHALATION BID 05/02/17 08/21/18 Ellipta 200-25 Mcg INH] Furosemide [Lasix] 20 mg PO DAILY 05/02/17 08/21/18 Tiotropium [place] [Spiriva 1 - 2 spray INHALATION RT-DAILY 05/02/17 08/21/18 Respimat] Albuterol Nebulized [Ventolin 3 ml INHALATION RT-QID 08/21/18 08/21/18 Nebulized] Ipratropium Nebulized [Atrovent 0.5 mg INHALATION RT-BID 08/21/18 08/21/18 Nebulized] Warfarin [Coumadin] 7.5 mg PO MOTH 08/21/18 08/21/18 Warfarin [Coumadin] 10 mg PO SUTUWEFRSA 08/21/18 08/21/18 Previous Rx's Medication Instructions Recorded Lisinopril [Zestril] 5 mg PO DAILY #30 tab 11/07/16 Spironolactone [Aldactone] 25 mg PO DAILY #30 tab 11/07/16 Allergies Allergy/AdvReac Type Severity Reaction Status Date / Time No Known Allergies Allergy Verified 08/21/18 13:13 Review of Systems ROS Statement: Those systems with pertinent positive or pertinent negative responses have been documented in the HPI. ROS Other: All systems not noted in ROS Statement are negative. Past Medical History Past Medical History: Atrial Fibrillation, Heart Failure, COPD, Hyperlipidemia, Hypertension, Osteoarthritis (OA), Pneumonia Additional Past Medical History / Comment(s): COPD, previous history of acute respiratory failure related to COPD exacerbation, glaucoma, obesity, chronic atrial fibrillation/flutter, glucoma History of Any Multi-Drug Resistant Organisms: None Reported Additional Past Surgical History / Comment(s): right eye surgery. Past Anesthesia/Blood Transfusion Reactions: No Reported Reaction Past Psychological History: No Psychological Hx Reported Smoking Status: Current every day smoker Past Alcohol Use History: Occasional Past Drug Use History: None Reported - Past Family History Brother(s) Family Medical History: Cancer Additional Family Medical History / Comment(s): CMML General Exam General appearance: alert, in no apparent distress Head exam: Present: atraumatic, normocephalic Eye exam: Present: normal appearance, PERRL ENT exam: Present: normal exam Neck exam: Present: normal inspection Respiratory exam: Present: respiratory distress, wheezes, decreased breath sounds, prolonged expiratory Cardiovascular Exam: Present: regular rate, normal rhythm GI/Abdominal exam: Present: soft. Absent: distended, tenderness Extremities exam: Present: normal inspection, normal capillary refill. Absent: pedal edema Neurological exam: Present: alert, oriented X3, CN II-XII intact. Absent: motor sensory deficit Psychiatric exam: Present: normal affect, normal mood Skin exam: Present: warm, dry, intact. Absent: cyanosis, diaphoretic Course Vital Signs 08/21/18 08/21/18 08/21/18 11:39 11:54 12:00 Temperature 98.4 F Pulse Rate 106 H 100 Respiratory 24 20 Rate Blood Pressure 137/71 117/64 O2 Sat by Pulse 85 L 95 95 Oximetry 08/21/18 08/21/18 08/21/18 12:07 12:16 12:31 Temperature Pulse Rate 100 98 Respiratory 25 H Rate Blood Pressure O2 Sat by Pulse Oximetry 08/21/18 08/21/18 12:51 13:00 Temperature Pulse Rate 100 105 H Respiratory 20 Rate Blood Pressure 98/56 O2 Sat by Pulse 95 Oximetry EKG Findings - EKG Comments: EKG Findings:: EKG: Normal sinus rhythm, rate of 96, [place] interval 136, QRS duration 76, QTC [address] segment changes Medical Decision Making - Medical Decision Making 68-year-old male presenting for evaluation of cough and dyspnea. Patient has diminished lung sounds with expiratory wheezing bilaterally. He has history of COPD. Chest x-rays obtained, negative for focal pneumonia. Patient has normal CBC, normal CMP, troponin and BNP are negative. He will be admitted for further treatment of COPD exacerbation with hypoxia. Pulmonology placed on consult. - Lab Data Result diagrams: 08/21/18 12:02 08/21/18 13:22 Lab Results 08/21/18 08/21/18 08/21/18 Range/Units 12:02 12:02 12:02 WBC 10.2 (3.8-10.6) k/uL RBC 4.45 (4.30-5.90) m/uL Hgb 13.2 (13.0-17.5) gm/dL Hct 42.5 (39.0-53.0) % MCV 95.7 (80.0-100.0) fL MCH 29.8 (25.0-35.0) pg MCHC 31.1 (31.0-37.0) g/dL RDW 15.2 (11.5-15.5) % Plt Count 250 (150-450) k/uL Neutrophils % 77 % Lymphocytes % 10 % Monocytes % 9 % Eosinophils % 1 % Basophils % 0 % Neutrophils # 7.9 H (1.3-7.7) k/uL Lymphocytes # 1.0 (1.0-4.8) k/uL Monocytes # 0.9 (0-1.0) k/uL Eosinophils # 0.1 (0-0.7) k/uL Basophils # 0.0 (0-0.2) k/uL Hypochromasia Moderate PT 10.6 (9.0-12.0) sec INR 1.1 (<1.2) APTT 25.1 (22.0-30.0) sec Sodium (137-145) mmol/L Potassium (3.5-5.1) mmol/L Chloride (98-107) mmol/L Carbon Dioxide (22-30) mmol/L Anion Gap mmol/L BUN (9-20) mg/dL Creatinine (0.66-1.25) mg/dL Est GFR (CKD-EPI)AfAm (>60 ml/min/1.73 sqM) Est GFR (CKD-EPI)NonAf (>60 ml/min/1.73 sqM) Glucose (74-99) mg/dL Plasma Lactic Acid Jesus (0.7-2.0) mmol/L Calcium (8.4-10.2) mg/dL Magnesium (1.6-2.3) mg/dL Total Bilirubin (0.2-1.3) mg/dL AST (17-59) U/L ALT (21-72) U/L Alkaline Phosphatase (38-126) U/L Total Creatine Kinase (55-170) U/L CK-MB (CK-2) (0.0-2.4) ng/mL CK-MB (CK-2) Rel Index Troponin I (0.000-0.034) ng/mL NT-Pro-B Natriuret Pep 390 pg/mL Total Protein (6.3-8.2) g/dL Albumin (3.5-5.0) g/dL 08/21/18 08/21/18 08/21/18 Range/Units 12:02 13:22 13:22 WBC (3.8-10.6) k/uL RBC (4.30-5.90) m/uL Hgb (13.0-17.5) gm/dL Hct (39.0-53.0) % MCV (80.0-100.0) fL MCH (25.0-35.0) pg MCHC (31.0-37.0) g/dL RDW (11.5-15.5) % Plt Count (150-450) k/uL Neutrophils % % Lymphocytes % % Monocytes % % Eosinophils % % Basophils % % Neutrophils # (1.3-7.7) k/uL Lymphocytes # (1.0-4.8) k/uL Monocytes # (0-1.0) k/uL Eosinophils # (0-0.7) k/uL Basophils # (0-0.2) k/uL Hypochromasia PT (9.0-12.0) sec INR (<1.2) APTT (22.0-30.0) sec Sodium 140 (137-145) mmol/L Potassium 4.4 (3.5-5.1) mmol/L Chloride 97 L (98-107) mmol/L Carbon Dioxide 35 H (22-30) mmol/L Anion Gap 8 mmol/L BUN 12 (9-20) mg/dL Creatinine 1.09 (0.66-1.25) mg/dL Est GFR (CKD-EPI)AfAm 81 (>60 ml/min/1.73 sqM) Est GFR (CKD-EPI)NonAf 70 (>60 ml/min/1.73 sqM) Glucose 151 H (74-99) mg/dL Plasma Lactic Acid Jesus 2.0 (0.7-2.0) mmol/L Calcium 8.9 (8.4-10.2) mg/dL Magnesium 2.0 (1.6-2.3) mg/dL Total Bilirubin 0.3 (0.2-1.3) mg/dL AST 21 (17-59) U/L ALT 24 (21-72) U/L Alkaline Phosphatase 98 (38-126) U/L Total Creatine Kinase 44 L (55-170) U/L CK-MB (CK-2) 0.5 (0.0-2.4) ng/mL CK-MB (CK-2) Rel Index 1.1 Troponin I <0.012 (0.000-0.034) ng/mL NT-Pro-B Natriuret Pep pg/mL Total Protein 6.3 (6.3-8.2) g/dL Albumin 3.7 (3.5-5.0) g/dL Critical Care Time Critical Care Time: Yes Total Critical Care Time: 35 Disposition Clinical Impression: Acute exacerbation of chronic obstructive airways disease Disposition: ADMITTED IP TO THIS HOSP Condition: Stable Is patient prescribed a controlled substance at d/c from ED?: No Referrals: Arpita Arguello MD [Primary Care Provider] - 1-2 days Time of Disposition: 14:45 Decision to Admit Reason: Admit from EC Decision Date: 08/21/18 Decision Time: 14:45
[2018-08-21 12:44] LABS: Basophils % (A) 0 %; Eosinophils # (A) 0.1 k/uL (0-0.7); Eosinophils % (A) 1 %; HCT 42.5 % (39.0-53.0); HGB 13.2 gm/dL (13.0-17.5); Hypochromasia Moderate; Lymphocytes % (A) 10 %; MCH 29.8 pg (25.0-35.0); MCHC 31.1 g/dL (31.0-37.0); MCV 95.7 fL (80.0-100.0); Monocytes # (A) 0.9 k/uL (0-1.0); Monocytes % (A) 9 %; Neutrophils # (A) 7.9 k/uL (1.3-7.7); Neutrophils % (A) 77 %; Platelet Count 250 k/uL (150-450); RBC 4.45 m/uL (4.30-5.90); RDW 15.2 % (11.5-15.5); WBC 10.2 k/uL (3.8-10.6)
--- NOTE | 2018-08-21 13:41 | XR ---
EXAMINATION TYPE: XR chest 2V DATE OF EXAM: 08/21/2018 COMPARISON: 09/24/2017 HISTORY: Shortness of breath TECHNIQUE: Frontal and lateral views of the chest are obtained. FINDINGS: Scattered senescent parenchymal changes noted. Hyperinflation compatible with COPD. No evidence for infiltrate. No evidence for atelectasis. Heart size is stable. Mediastinal structures are stable and grossly unremarkable. No evidence for hilar prominence. Degenerative changes dorsal spine. IMPRESSION: 1. No evidence for acute pulmonary disease.
[2018-08-21 14:09] LABS: Creatine Kinase 44 U/L (55-170)
[2018-08-21 14:16] LABS: Albumin 3.7 g/dL (3.5-5.0); Calcium 8.9 mg/dL (8.4-10.2); Potassium 4.4 mmol/L (3.5-5.1); Total Bilirubin 0.3 mg/dL (0.2-1.3); Total Protein 6.3 g/dL (6.3-8.2)
[2018-08-21 14:22] LABS: Creatine Kinase MB 0.5 ng/mL (0.0-2.4); Troponin I <0.012 ng/mL (0.000-0.034)
[2018-08-21] MEDS ORDERED: IPRATROPIUM-ALBUTEROL 3 ML NEB INHALATION PRN (14:25)
[2018-08-21] MEDS ORDERED: ALBUTEROL NEBULIZED 2.5 MG/3 ML INHALATION PRN (14:27)
[2018-08-21] MEDS ORDERED: WARFARIN 5 MG TAB PO SCH (18:45)
[2018-08-21] MEDS ORDERED: WARFARIN 10 MG TAB PO ONE (19:30)
[2018-08-21] MEDS: IPRATROPIUM-ALBUTEROL 3 ML NEB INHALATION SCH ×2 (20:53→20:55)
[2018-08-21] MEDS: SYMBICORT 160-4.5 MCG INHALER INHALATION SCH (20:55)
[2018-08-21 20:57] LABS: Glucose,Whole Blood 297 mg/dL (75-99)
[2018-08-21] MEDS: ATORVASTATIN 20 MG TAB PO SCH (21:17)
[2018-08-21] MEDS: LATANOPROST 0.005% OPHTH DROPS 2.5 ML BTL BOTH EYES SCH (21:17)
[2018-08-21] MEDS: methylPREDNISolone SOD SUCCI 125 MG/2 ML VIAL IV SCH (21:17)
[2018-08-21] MEDS: INSULIN ASPART 100 UNIT/ML 1 ML 10 ML VIAL SQ SCH (21:18)
--- NOTE | 2018-08-22 00:02 | P.HPIM ---
History of Present Illness H&P Date: 08/21/18 Chief Complaint: Shortness Of breath Patient is a 68-year-old male with a known history of COPD on home oxygen, chronic hypoxic respiratory failure, use oxygen at night, hypertension, hyperlipidemia came to ER with complaints of shortness of breath and hypoxia. Patient does have history o of COPD and follows with Dr. Quarles as an outpatient. Patient has been having progressive shortness of breath for the past 2 weeks. Patient felt lightheaded and weak this morning. His pulse ox dropped down to 66% with oxygen. Patient does have cough but no recent change in quantity of frequency. No fever no chills. Denied any chest pain. Chest x-ray showed no acute cardiopulmonary process EKG showed normal sinus rhythm. BNP 390, bicarb 35 Random blood sugar 247 Review of Systems Constitutional: Patient denies any fever or chills . No generalized weakness or weight loss. Abdomen: Patient denied nausea vomiting and diarrhea and abdominal pain. Cardiovascular: Patient denies any chest pain or short of breath no palpitations. Respiratory: Patient does have cough with whitish to green sputum production and shortness of breath Neurologic: Patient denied any numbness or tingling headache. Musculoskeletal: Patient denies any complaints of joint swelling or deformity. Skin: Negative Psychiatric: Negative Endocrine: No heat or cold intolerance. No recent weight gain. Genitourinary: No dysuria or hematuria. All other 14 point ROS negative except the above Past Medical History Past Medical History: Atrial Fibrillation, Heart Failure, COPD, Eye Disorder, Hyperlipidemia, Hypertension, Osteoarthritis (OA), Pneumonia Additional Past Medical History / Comment(s): COPD,02 2 liters n/c at hs, previous history of acute respiratory failure related to COPD exacerbation/ vented, glaucoma, obesity, chronic atrial fibrillation/flutter,wears contact lense rt eye and also weras glasses History of Any Multi-Drug Resistant Organisms: None Reported Additional Past Surgical History / Comment(s): right eye surgery.colonoscopy Past Anesthesia/Blood Transfusion Reactions: No Reported Reaction Smoking Status: Current every day smoker - Past Family History Brother(s) Family Medical History: Cancer Additional Family Medical History / Comment(s): COUNTS INCLUDE 234 BEDS AT THE [facility] Medications and Allergies Home Medications Medication Instructions Recorded Confirmed Type Latanoprost [Xalatan 0.005%] 1 drop BOTH EYES 10/26/16 08/21/18 History Lisinopril [Zestril] 5 mg PO DAILY #30 tab 11/07/16 08/21/18 Rx Spironolactone [Aldactone] 25 mg PO DAILY #30 tab 11/07/16 08/21/18 Rx Atorvastatin [Lipitor] 20 mg PO HS 05/02/17 08/21/18 History Fluticasone/Vilanterol [Breo 1 inhalation INHALATION BID 05/02/17 08/21/18 History Ellipta 200-25 Mcg INH] Furosemide [Lasix] 20 mg PO DAILY 05/02/17 08/21/18 History Tiotropium [place] [Spiriva 1 - 2 spray INHALATION RT-DAILY 05/02/17 08/21/18 History Respimat] Albuterol Nebulized [Ventolin 3 ml INHALATION RT-QID 08/21/18 08/21/18 History Nebulized] Ipratropium Nebulized [Atrovent 0.5 mg INHALATION RT-BID 08/21/18 08/21/18 History Nebulized] Warfarin [Coumadin] 7.5 mg PO MOTH 08/21/18 08/21/18 History Warfarin [Coumadin] 10 mg PO SUTUWEFRSA 08/21/18 08/21/18 History Allergies Allergy/AdvReac Type Severity Reaction Status Date / Time No Known Allergies Allergy Verified 08/21/18 13:13 Physical Exam Vitals: Vital Signs Temp Pulse Resp BP Pulse Ox 08/21/18 14:00 96 22 95/59 96 08/21/18 13:00 105 H 20 98/56 95 08/21/18 12:51 100 08/21/18 12:31 98 08/21/18 12:16 100 08/21/18 12:07 25 H 08/21/18 12:00 100 20 117/64 95 08/21/18 11:54 95 08/21/18 11:39 98.4 F 106 H 24 137/71 85 L Intake and Output 08/21/18 08/21/18 08/21/18 06:59 14:59 22:59 Other: Weight 91.626 kg PHYSICAL EXAMINATION: Patient is lying in the bed comfortably, no acute distress, awake alert and oriented.. HEENT: Normocephalic. Neck is supple. Pupils reactive. Nostrils clear. Oral cavity is moist. Ears reveal no drainage. Neck reveals no JVD, carotid bruits, or thyromegaly. CHEST EXAMINATION: Trachea is central. Symmetrical expansion. Bilateral diffuse wheezing and diminished air entry. CARDIAC: Normal S1, S2 with no gallops. No murmurs ABDOMEN: Soft. Bowel sounds normal. No organomegaly. No abdominal bruits. Extremities: reveal no edema. No clubbing or cyanosis Neurologically awake, alert, oriented x3 with well-coordinated movements. No focal deficits noted Skin: No rash or skin lesions. Psychiatric: Coperative. Nonsuicidal Musculoskeletal: No joint swelling or deformity. Normal range of motion. Results CBC & Chem 7: 08/21/18 12:02 08/21/18 13:22 Labs: Abnormal Lab Results - Last 24 Hours (Table) 08/21/18 08/21/18 08/21/18 Range/Units 12:02 13:22 13:22 Neutrophils # 7.9 H (1.3-7.7) k/uL Chloride 97 L (98-107) mmol/L Carbon Dioxide 35 H (22-30) mmol/L Glucose 151 H (74-99) mg/dL Total Creatine Kinase 44 L (55-170) U/L Thrombosis Risk Factor Assmnt - DVT/VTE Prophylaxis DVT/VTE Prophylaxis: Pharmacologic Prophylaxis ordered Assessment and Plan Assessment: Acute on chronic hypoxic respiratory failure secondary to COPD Acute COPD exacerbation Acute tracheobronchitis Paroxysmal atrial fibrillation on anticoagulation at home with warfarin Hypertension Hyperlipidemia Osteoarthritis Chronic CHF with ejection fraction unknown Nicotine addiction Plan: Patient will be continued on IV steroids, and DuoNeb's and follow closely. Continue the antibiotics in the form azithromycin. Pulmonary was consulted. Coumadin dosing. Continue the home medications and further recommendations based on the clinical course. Smoking cessation has been counseled extensively. Time with Patient: Greater than 30
[2018-08-22] MEDS: methylPREDNISolone SOD SUCCI 125 MG/2 ML VIAL IV SCH ×4 (01:20→17:48)
[2018-08-22 05:03] LABS: Hemoglobin A1C 6.4 % (4.0-6.0)
[2018-08-22] MEDS: IPRATROPIUM-ALBUTEROL 3 ML NEB INHALATION SCH ×4 (07:22→20:36)
[2018-08-22] MEDS: SYMBICORT 160-4.5 MCG INHALER INHALATION SCH ×2 (07:22→20:36)
[2018-08-22 07:43] LABS: Glucose,Whole Blood 156 mg/dL (75-99)
[2018-08-22 08:04] LABS: Prothrombin Time 48.6 sec (9.0-12.0)
[2018-08-22] MEDS: INSULIN ASPART 100 UNIT/ML 1 ML 10 ML VIAL SQ SCH ×4 (08:12→22:06)
[2018-08-22] MEDS: AZITHROMYCIN 500 MG TAB PO SCH (08:15)
[2018-08-22 08:18] LABS: INR 5.4 (<1.2)
[2018-08-22 08:46] LABS: INR 4.1 (<1.2); Prothrombin Time 37.1 sec (9.0-12.0)
[2018-08-22 12:12] LABS: Glucose,Whole Blood 221 mg/dL (75-99)
--- NOTE | 2018-08-22 13:03 | P.CNPUL ---
History of Present Illness Consult date: 08/22/18 Reason for consult: dyspnea, cough, COPD, hypoxemia, abnormal CXR/CT Chief complaint: Shortness of breath, COPD exacerbation, ongoing tobacco use. History of present illness: Pulmonary/critical care consultation dated 08/22/2018 68-year-old male well-known to our service. He sees one of my partners in the office for his COPD. He states for the last couple weeks, he's been having increasing shortness of breath chest tightness wheezing cough and white phlegm production. Unfortunately, despite counseling, he continues to smoke. He denies any chest pain or chest discomfort. Denies any fever or chills. No nausea vomiting or diarrhea. He is coughing up a small amount of phlegm. Is typically white or clear. Denies coughing up any blood. In addition to COPD, he has a history of hyperlipidemia, atrial fibrillation, heart failure, hypertension, DJD, and pneumonia. He also suffers from glaucoma. He continues to smoke and has smoked for many many years. He states he is only smoking about a half a pack a day now. He saw my partner Dr. Quarles a couple weeks ago in the office and at that time he was doing reasonably well. He seems to think that maybe his COPD exacerbation on this admission relates to a recent flu shot. I do not think there is any correlation between the two. Labs from yesterday show a completely normal CBC. His PT and INR or 48.6 and 5.4. His comprehensive metabolic profile is positive for a chloride of 97, CO2 35, glucose of 297, an A1c of 6.4 and a total CK of 44. Chest x-ray was negative for acute disease. Review of Systems A 14 point review of system is positive for shortness of breath chest tightness wheezing cough and minimal clear to white phlegm production. He denies any fever chills nausea vomiting diarrhea or hemoptysis. Past Medical History Past Medical History: Atrial Fibrillation, Heart Failure, COPD, Eye Disorder, Hyperlipidemia, Hypertension, Osteoarthritis (OA), Pneumonia Additional Past Medical History / Comment(s): COPD,02 2 liters n/c at hs, previous history of acute respiratory failure related to COPD exacerbation/ vented, glaucoma, obesity, chronic atrial fibrillation/flutter,wears contact lense rt eye and also weras glasses History of Any Multi-Drug Resistant Organisms: None Reported Additional Past Surgical History / Comment(s): right eye surgery.colonoscopy Past Anesthesia/Blood Transfusion Reactions: No Reported Reaction Smoking Status: Current every day smoker - Past Family History Brother(s) Family Medical History: Cancer Additional Family Medical History / Comment(s): CMML Medications and Allergies Home Medications Medication Instructions Recorded Confirmed Type Latanoprost [Xalatan 0.005%] 1 drop BOTH EYES HS 10/26/16 08/21/18 History Lisinopril [Zestril] 5 mg PO DAILY #30 tab 11/07/16 08/21/18 Rx Spironolactone [Aldactone] 25 mg PO DAILY #30 tab 11/07/16 08/21/18 Rx Atorvastatin [Lipitor] 20 mg PO HS 05/02/17 08/21/18 History Fluticasone/Vilanterol [Breo 1 inhalation INHALATION BID 05/02/17 08/21/18 History Ellipta 200-25 Mcg INH] Furosemide [Lasix] 20 mg PO DAILY 05/02/17 08/21/18 History Tiotropium [place] [Spiriva 1 - 2 spray INHALATION RT-DAILY 05/02/17 08/21/18 History Respimat] Albuterol Nebulized [Ventolin 3 ml INHALATION RT-QID 08/21/18 08/21/18 History Nebulized] Ipratropium Nebulized [Atrovent 0.5 mg INHALATION RT-BID 08/21/18 08/21/18 History Nebulized] Warfarin [Coumadin] 7.5 mg PO MOTH 08/21/18 08/21/18 History Warfarin [Coumadin] 10 mg PO SUTUWEFRSA 08/21/18 08/21/18 History Allergies Allergy/AdvReac Type Severity Reaction Status Date / Time No Known Allergies Allergy Verified 08/21/18 13:13 Physical Exam Osteopathic Statement: *. No significant issues noted on an osteopathic structural exam other than those noted in the History and Physical/Consult. Vitals: Vital Signs Temp Pulse Pulse Resp BP BP Pulse Ox 08/22/18 10:57 86 08/22/18 10:47 84 08/22/18 07:32 80 08/22/18 07:22 80 08/22/18 06:55 98.0 F 99 16 108/62 91 L 08/21/18 22:05 98.4 F 99 16 102/59 90 L 08/21/18 21:10 88 08/21/18 20:55 80 08/21/18 20:40 97.9 F 93 16 103/60 90 L 08/21/18 19:00 98/70 95 08/21/18 18:00 87 21 104/76 95 08/21/18 17:00 88 20 85/58 93 L 08/21/18 16:00 88 18 93/55 95 08/21/18 15:00 91 20 97/57 95 08/21/18 14:00 96 22 95/59 96 08/21/18 13:00 105 H 20 98/56 95 Intake and Output 08/21/18 08/22/18 08/22/18 22:59 06:59 14:59 Intake Total 500 Balance 500 Intake: Oral 500 Other: # Voids 1 2 Weight 91.626 kg 92.3 kg 92.3 kg No acute distress, oriented 3. Nasal O2 in place. No use of accessory muscles. No audible wheezing. HEENT examination is grossly unremarkable. Mucous membranes are moist. No oral lesions. Neck supple. Full range of motion. No adenopathy thyromegaly or neck vein distention. Cardiovascular examination reveals irregular rhythm and rate. S1-S2 normal. Heart sounds are distant. No discernible murmur noted. Lungs reveal severely diminished breath sounds throughout. There is prolongation on forced maneuver. The patient has expiratory wheezes and rhonchi. The patient's adventitious lung sounds are more prominent on forced maneuver. Breath sounds are equal bilaterally.. Abdomen soft bowel sounds are heard. No masses or tenderness. Extremities are intact. No cyanosis clubbing or edema. Skin is without rash or lesion. Neurologic examination is brief but nonfocal. Results - Laboratory Findings CBC and BMP: 08/21/18 12:02 08/21/18 13:22 PT/INR, D-dimer PT 48.6 sec (9.0-12.0) H 08/22/18 07:26 INR 5.4 (<1.2) H* 08/22/18 07:26 Abnormal lab findings: Abnormal Labs 08/21/18 08/21/18 08/21/18 12:02 12:02 13:22 Neutrophils # 7.9 H PT INR Chloride Carbon Dioxide Glucose POC Glucose (mg/dL) Hemoglobin A1c 6.4 H Total Creatine Kinase 44 L 08/21/18 08/21/18 08/21/18 13:22 13:22 20:43 Neutrophils # PT 37.1 H INR 4.1 H Chloride 97 L Carbon Dioxide 35 H Glucose 151 H POC Glucose (mg/dL) 297 H Hemoglobin A1c Total Creatine Kinase 08/22/18 08/22/18 08/22/18 06:58 07:26 12:10 Neutrophils # PT 48.6 H INR 5.4 H* Chloride Carbon Dioxide Glucose POC Glucose (mg/dL) 156 H 221 H Hemoglobin A1c Total Creatine Kinase - Diagnostic Findings Chest x-ray: report reviewed, image reviewed (Chest x-ray, labs and medications are all reviewed.) Assessment and Plan Assessment: Assessment COPD exacerbation, possibly complicated by mild tracheobronchitis Acute on chronic hypoxemic respiratory failure History of hyperlipidemia History of ongoing tobacco use with nicotine addiction History of atrial fibrillation History of heart failure. History of benign essential hypertension History of DJD History of pneumonia History of glaucoma Plan: Plan dated 08/22/2018 The patient's chest x-ray does not show an acute infiltrate. Nonetheless, he should be treated with DuoNeb's 4 times a day and when necessary as well as a long-acting beta agonist and inhaled corticosteroid. In addition, the patient should receive systemic corticosteroids with Solu-Medrol 60 mg every 6 hours. In addition, even though he does not have pneumonia, he may have a tracheobronchitis and should receive a short course of antibiotics. Today we counseled the patient about the importance of smoking cessation. He's been counseled before. He'll continue using oxygen therapy in the short-term. Additional recommendations and suggestions are forthcoming. Prognosis is guarded given his ongoing tobacco use. I asked about his pulmonary function. He has not had one for some time he tells me. Time with Patient: Greater than 30
--- NOTE | 2018-08-22 16:34 | PN ---
PROGRESS NOTE DATE OF SERVICE: 08/22/2018 This 65-year-old gentleman who was admitted COPD acute exacerbation, is being closely monitored. The patient also had paroxysmal atrial fibrillation. No chest pain. No palpitations. No fever. Pulmonary Dr. Liao is following the patient closely. PHYSICAL EXAM: Alert and oriented x3. Pulse 107, blood pressure 170/56, respirations 16, temperature 97.8, pulse ox 91 percent on 2 L. HEENT: Conjunctivae normal. Oral mucosa moist. Neck is no jugular venous distention. No carotid bruit. No lymph node enlargement. CARDIOVASCULAR: S1, S2 muffled. RESPIRATORY: Breathing efforts increased, bilateral scattered rhonchi and expiratory wheezing also present. ABDOMEN: Soft, nontender. No mass palpable. LEGS: No edema. NERVOUS SYSTEM: No focal deficits. LABS: INR 4.1 and 5.4. Glucose noted. Other labs CBC 10.2. ASSESSMENT: 1. Chronic obstructive pulmonary disease exacerbation with acute purulent tracheobronchitis with acute on chronic hypoxic respiratory failure secondary to chronic obstructive pulmonary disease. 2. Paroxysmal atrial fibrillation, on anticoagulation with warfarin. 3. Mild Coumadin coagulopathy. 4. Hypertension. 5. Hyperlipidemia. 6. Degenerative joint disease. 7. History of chronic congestive heart failure with ejection fraction unknown. 8. History of nicotine dependence. RECOMMENDATIONS AND DISCUSSION: I recommend to continue current medications, symptomatic treatment. Continue bronchodilators, empiric antibiotics. Closely follow with Pulmonary, IV steroids. Hold Coumadin at this time. Guarded prognosis. Further recommendations to follow. MMODL / IJN: [id number] /
[2018-08-22 16:49] LABS: Glucose,Whole Blood 156 mg/dL (75-99)
[2018-08-22 20:22] LABS: Glucose,Whole Blood 145 mg/dL (75-99)
[2018-08-22] MEDS: LATANOPROST 0.005% OPHTH DROPS 2.5 ML BTL BOTH EYES SCH (22:03)
[2018-08-22] MEDS: ATORVASTATIN 20 MG TAB PO SCH (22:06)
[2018-08-23] MEDS: methylPREDNISolone SOD SUCCI 125 MG/2 ML VIAL IV SCH ×5 (00:23→23:36)
[2018-08-23 07:14] LABS: Glucose,Whole Blood 133 mg/dL (75-99)
[2018-08-23] MEDS: IPRATROPIUM-ALBUTEROL 3 ML NEB INHALATION SCH ×4 (07:22→19:09)
[2018-08-23] MEDS: SYMBICORT 160-4.5 MCG INHALER INHALATION SCH ×2 (07:22→19:09)
[2018-08-23 07:43] LABS: Basophils % (A) 0 %; Eosinophils % (A) 0 %; HCT 39.2 % (39.0-53.0); HGB 12.2 gm/dL (13.0-17.5); Hypochromasia Marked; Lymphocytes # (A) 0.8 k/uL (1.0-4.8); Lymphocytes % (A) 4 %; MCHC 31.1 g/dL (31.0-37.0); MCV 96.7 fL (80.0-100.0); Mean Platelet Volume 7.1; Monocytes # (A) 0.8 k/uL (0-1.0); Monocytes % (A) 4 %; Neutrophils # (A) 18.9 k/uL (1.3-7.7); Neutrophils % (A) 91 %; Platelet Count 270 k/uL (150-450); RBC 4.06 m/uL (4.30-5.90); RDW 15.3 % (11.5-15.5); WBC 20.8 k/uL (3.8-10.6)
[2018-08-23 07:46] LABS: INR 4.7 (<1.2); Prothrombin Time 42.2 sec (9.0-12.0)
[2018-08-23] MEDS: AZITHROMYCIN 500 MG TAB PO SCH (08:04)
[2018-08-23] MEDS: SPIRONOLACTONE 25 MG TAB PO SCH (08:04)
[2018-08-23] MEDS: FUROSEMIDE 20 MG TAB PO SCH (08:05)
[2018-08-23] MEDS: INSULIN ASPART 100 UNIT/ML 1 ML 10 ML VIAL SQ SCH ×4 (08:07→21:38)
[2018-08-23 08:39] LABS: Calcium 8.8 mg/dL (8.4-10.2); Potassium 5.3 mmol/L (3.5-5.1)
[2018-08-23 11:32] LABS: Glucose,Whole Blood 139 mg/dL (75-99)
--- NOTE | 2018-08-23 14:19 | P.PN ---
Subjective Progress Note Date: 08/23/18 Principal diagnosis: Shortness of breath, COPD exacerbation Progress note dated 08/23/2018 This is a 68-year-old male well-known to our service. He is admitted with a diagnosis of COPD exacerbation, acute on chronic hypoxemic respiratory failure, hyperlipidemia, ongoing tobacco use atrial fibrillation and heart failure benign essential hypertension DJD pneumonia and glaucoma. The patient is feeling a bit better today than yesterday. Still very short of breath. Lots of cough wheezing and chest tightness. His sandwich maker is my partner Dr. Quarles. The patient unfortunately continues to smoke. He states that he smokes about a half a pack a day. His confirms that. He denies any chest pain or chest discomfort. No palpitations. No nausea vomiting diarrhea. No fever or chills. Chest x-ray only showed evidence of COPD. Objective - Vital Signs Vital signs: Vital Signs Temp 97.2 F L 08/23/18 06:06 Pulse 95 08/23/18 11:34 Resp 17 08/23/18 08:00 BP 103/63 08/23/18 06:06 Pulse Ox 93 L 08/23/18 06:06 Intake & Output 08/22/18 08/23/18 08/23/18 18:59 06:59 18:59 Intake Total 1100 Balance 1100 Weight 92.3 kg 93 kg Intake: Oral 1100 Other: # Voids 1 2 # Bowel Movements 1 - Exam No acute distress, oriented 3. Nasal O2 in place. No audible wheezing. No use of accessory muscles. HEENT examination is grossly unremarkable. Mucous membranes are moist. No oral lesions. Neck supple. Full range of motion. No adenopathy thyromegaly or neck vein distention. Cardiovascular examination reveals regular rhythm rate. S1-S2 normal. No S3 or S4. No discernible murmur noted. Lungs reveal diffuse inspiratory and expiratory wheezes and rhonchi. Breath sounds are diminished. There is prolongation on forced maneuver. Adventitious lung sounds are more prominent on forced maneuver. No crackles. Breath sounds equal bilaterally. Abdomen soft bowel sounds are heard. No masses or tenderness. Extremities are intact. No cyanosis clubbing or edema. Skin is without rash or lesion. Neurologic examination is brief but nonfocal. - Labs CBC & Chem 7: 08/23/18 07:17 08/23/18 07:17 Labs: Abnormal Lab Results - Last 24 Hours (Table) 08/22/18 08/22/18 08/23/18 Range/Units 16:46 20:19 07:11 WBC (3.8-10.6) k/uL RBC (4.30-5.90) m/uL Hgb (13.0-17.5) gm/dL Neutrophils # (1.3-7.7) k/uL Lymphocytes # (1.0-4.8) k/uL PT (9.0-12.0) sec INR (<1.2) Potassium (3.5-5.1) mmol/L Carbon Dioxide (22-30) mmol/L BUN (9-20) mg/dL Glucose (74-99) mg/dL POC Glucose (mg/dL) 156 H 145 H 133 H (75-99) mg/dL 08/23/18 08/23/18 08/23/18 Range/Units 07:17 07:17 07:17 WBC 20.8 H (3.8-10.6) k/uL RBC 4.06 L (4.30-5.90) m/uL Hgb 12.2 L (13.0-17.5) gm/dL Neutrophils # 18.9 H (1.3-7.7) k/uL Lymphocytes # 0.8 L (1.0-4.8) k/uL PT 42.2 H (9.0-12.0) sec INR 4.7 H (<1.2) Potassium 5.3 H (3.5-5.1) mmol/L Carbon Dioxide 35 H (22-30) mmol/L BUN 33 H (9-20) mg/dL Glucose 125 H (74-99) mg/dL POC Glucose (mg/dL) (75-99) mg/dL 08/23/18 Range/Units 11:27 WBC (3.8-10.6) k/uL RBC (4.30-5.90) m/uL Hgb (13.0-17.5) gm/dL Neutrophils # (1.3-7.7) k/uL Lymphocytes # (1.0-4.8) k/uL PT (9.0-12.0) sec INR (<1.2) Potassium (3.5-5.1) mmol/L Carbon Dioxide (22-30) mmol/L BUN (9-20) mg/dL Glucose (74-99) mg/dL POC Glucose (mg/dL) 139 H (75-99) mg/dL Microbiology - Last 24 Hours (Table) 08/21/18 12:02 Blood Culture - Preliminary Blood No Growth after 24 hours Assessment and Plan Assessment: Assessment COPD exacerbation, possibly complicated by mild tracheobronchitis Acute on chronic hypoxemic respiratory failure History of hyperlipidemia History of ongoing tobacco use with nicotine addiction History of atrial fibrillation History of heart failure. History of benign essential hypertension History of DJD History of pneumonia History of glaucoma Plan: Plan dated 08/22/2018 The patient's chest x-ray does not show an acute infiltrate. Nonetheless, he should be treated with DuoNeb's 4 times a day and when necessary as well as a long-acting beta agonist and inhaled corticosteroid. In addition, the patient should receive systemic corticosteroids with Solu-Medrol 60 mg every 6 hours. In addition, even though he does not have pneumonia, he may have a tracheobronchitis and should receive a short course of antibiotics. Today we counseled the patient about the importance of smoking cessation. He's been counseled before. He'll continue using oxygen therapy in the short-term. Additional recommendations and suggestions are forthcoming. Prognosis is guarded given his ongoing tobacco use. I asked about his pulmonary function. He has not had one for some time he tells me. Progress note dated 08/23/2018 The patient's chest x-ray was evaluated yesterday. We also reviewed his medications and labs. Everything is appropriate. The patient does feel a bit better today. I don't suspect to be discharged before Friday. Again I spent some time talking to him his about the importance of smoking cessation. The patient will continue on oxygen, steroids, bronchodilators, and oral antibiotics. Prognosis is guarded. Time with Patient: Less than 30
[2018-08-23 16:48] LABS: Glucose,Whole Blood 131 mg/dL (75-99)
[2018-08-23 20:27] LABS: Glucose,Whole Blood 192 mg/dL (75-99)
[2018-08-23] MEDS: LATANOPROST 0.005% OPHTH DROPS 2.5 ML BTL BOTH EYES SCH (21:37)
[2018-08-23] MEDS: ATORVASTATIN 20 MG TAB PO SCH (21:37)
--- NOTE | 2018-08-23 21:41 | PN ---
PROGRESS NOTE DATE OF SERVICE: 08/23/2018. HISTORY: This is a 65-year-old gentleman who was admitted with COPD exacerbation, also had paroxysmal atrial fibrillation. The patient also had chronic hypoxic respiratory failure. There is no evidence of pneumonia. The patient is on bronchodilators and steroids, slightly improving at this time. No chest pain. No palpitations. No fever. PHYSICAL EXAM: Alert, oriented x3. Pulse 104, blood pressure 130/60, respiratory rate 20, temperature 97.2, pulse ox 90% on 3 L. HEENT: Conjunctivae normal. Oral mucosa moist. NECK: No jugular venous distention. No lymph node enlargement. CARDIOVASCULAR: S1 and S2 muffled. LUNGS: Breath sounds diminished in the bases. Few scattered rhonchi and crackles. Breathing effort mildly increased. ABDOMEN: Soft, nontender. LEGS: No edema. ROLLER STAKER: No focal deficits. LAB STUDIES: WBC 20, hemoglobin 12.2, INR is 4.7, sodium 130, potassium 5.3. ASSESSMENT: 1. Chronic obstructive pulmonary disease exacerbation with acute purulent tracheobronchitis with acute hypoxic respiratory failure secondary to chronic obstructive pulmonary disease. 2. Paroxysmal atrial fibrillation, on anticoagulation with warfarin. 3. Mild Coumadin coagulopathy. 4. Hypertension. 5. Hyperlipidemia. 6. Degenerative joint disease. 7. History of chronic congestive heart failure with ejection fraction unknown. 8. History of nicotine dependence. RECOMMENDATIONS: Continue current medications. Continue with symptomatic management and continue with IV steroids. Continue with bronchodilators. Continue with empiric antibiotics. Otherwise prognosis guarded because of multiple complex medical issues. Further recommendations to follow. We will add Rocephin to the current regimen. MMODL / IJN: [id number] /
[2018-08-24] MEDS: methylPREDNISolone SOD SUCCI 125 MG/2 ML VIAL IV SCH ×3 (06:45→17:32)
[2018-08-24 07:10] LABS: Glucose,Whole Blood 117 mg/dL (75-99)
[2018-08-24] MEDS: INSULIN ASPART 100 UNIT/ML 1 ML 10 ML VIAL SQ SCH ×4 (07:18→21:29)
[2018-08-24] MEDS: SPIRONOLACTONE 25 MG TAB PO SCH (07:49)
[2018-08-24] MEDS: LISINOPRIL 5 MG TAB PO SCH (07:49)
[2018-08-24] MEDS: FUROSEMIDE 20 MG TAB PO SCH (07:49)
[2018-08-24] MEDS: AZITHROMYCIN 500 MG TAB PO SCH (07:52)
[2018-08-24] MEDS: SYMBICORT 160-4.5 MCG INHALER INHALATION SCH ×2 (08:42→19:51)
[2018-08-24] MEDS: IPRATROPIUM-ALBUTEROL 3 ML NEB INHALATION SCH ×4 (08:42→19:51)
[2018-08-24 09:39] LABS: Prothrombin Time 18.3 sec (9.0-12.0)
[2018-08-24 09:41] LABS: Basophils % (A) 0 %; Eosinophils % (A) 0 %; HCT 45.7 % (39.0-53.0); HGB 13.5 gm/dL (13.0-17.5); Hypochromasia Marked; Lymphocytes # (A) 1.1 k/uL (1.0-4.8); Lymphocytes % (A) 4 %; MCH 29.4 pg (25.0-35.0); MCHC 29.6 g/dL (31.0-37.0); MCV 99.4 fL (80.0-100.0); Macrocytosis Slight; Monocytes # (A) 0.5 k/uL (0-1.0); Monocytes % (A) 2 %; Neutrophils # (A) 22.6 k/uL (1.3-7.7); Neutrophils % (A) 93 %; Platelet Count 342 k/uL (150-450); RDW 15.2 % (11.5-15.5); WBC 24.3 k/uL (3.8-10.6)
[2018-08-24 09:53] LABS: Calcium 9.3 mg/dL (8.4-10.2); Potassium 5.1 mmol/L (3.5-5.1)
[2018-08-24 12:12] LABS: Glucose,Whole Blood 116 mg/dL (75-99)
--- NOTE | 2018-08-24 16:16 | P.PN ---
Subjective Progress Note Date: 08/24/18 Progress note being dictated for Dr. Hernandez Interval history:Patient is a 68-year-old male with a known history of COPD on home oxygen, chronic hypoxic respiratory failure, use oxygen at night, hypertension, hyperlipidemia came to ER with complaints of shortness of breath and hypoxia. Patient does have history o of COPD and follows with Dr. Quarles as an outpatient. Patient has been having progressive shortness of breath for the past 2 weeks. Patient felt lightheaded and weak this morning. His pulse ox dropped down to 66% with oxygen. Patient does have cough but no recent change in quantity of frequency. No fever no chills. Denied any chest pain. Chest x-ray showed no acute cardiopulmonary process EKG showed normal sinus rhythm. BNP 390, bicarb 35 Random blood sugar 247 Review of Systems Constitutional: Patient denies any fever or chills . No generalized weakness or weight loss. Abdomen: Patient denied nausea vomiting and diarrhea and abdominal pain. Cardiovascular: Patient denies any chest pain or short of breath no palpitations. Respiratory: Patient does have cough with whitish to green sputum production and shortness of breath Neurologic: Patient denied any numbness or tingling headache. Musculoskeletal: Patient denies any complaints of joint swelling or deformity. Skin: Negative Psychiatric: Negative Endocrine: No heat or cold intolerance. No recent weight gain. Genitourinary: No dysuria or hematuria. All other 14 point ROS negative except the above 08/24/2018 sitting up at bedside, no acute distress. Maintaining O2 sats in the low 90s on 3 L nasal cannula in a patient whose baseline is 2 L nasal cannula at rest. Reports occasional productive cough with thick white/pale yellow Secretions. INR 2, anticoagulated on Coumadin. Potential bronchoscopy discussed yesterday as per pulmonary. Afebrile. Denies chest pain, palpitations or increased shortness of breath. Objective - Vital Signs Vital signs: Vital Signs Temp 98.2 F 08/24/18 14:26 Pulse 95 08/24/18 15:55 Resp 20 08/24/18 14:26 BP 123/65 08/24/18 14:26 Pulse Ox 93 L 08/24/18 15:42 Intake & Output 08/23/18 08/24/18 08/24/18 18:59 06:59 18:59 Intake Total 1200 900 480 Balance 1200 900 480 Weight 92.5 kg Intake: Oral 1200 900 480 Other: # Voids 1 1 2 # Bowel Movements 0 - Exam Patient is lying in the bed comfortably, no acute distress, awake alert and oriented.. HEENT: Normocephalic. Neck is supple. Pupils reactive. Nostrils clear. Oral cavity is moist. Ears reveal no drainage. Neck reveals no JVD, carotid bruits, or thyromegaly. CHEST EXAMINATION: Diminished air entry with Few scattered rhonchi, crackles. Bilateral diffuse wheezing. CARDIAC: Normal S1, S2 with no gallops. No murmurs ABDOMEN: Soft. Bowel sounds normal. No organomegaly. No abdominal bruits. Extremities: reveal no edema. No clubbing or cyanosis Neurologically awake, alert, oriented x3 with well-coordinated movements. No focal deficits noted - Labs CBC & Chem 7: 08/24/18 09:16 08/24/18 09:16 Labs: Abnormal Lab Results - Last 24 Hours (Table) 08/23/18 08/23/18 08/24/18 Range/Units 16:42 20:25 07:08 WBC (3.8-10.6) k/uL MCHC (31.0-37.0) g/dL Neutrophils # (1.3-7.7) k/uL PT (9.0-12.0) sec INR (<1.2) Chloride (98-107) mmol/L Carbon Dioxide (22-30) mmol/L BUN (9-20) mg/dL Glucose (74-99) mg/dL POC Glucose (mg/dL) 131 H 192 H 117 H (75-99) mg/dL 08/24/18 08/24/18 08/24/18 Range/Units 09:16 09:16 09:16 WBC 24.3 H (3.8-10.6) k/uL MCHC 29.6 L (31.0-37.0) g/dL Neutrophils # 22.6 H (1.3-7.7) k/uL PT 18.3 H (9.0-12.0) sec INR 2.0 H (<1.2) Chloride 95 L (98-107) mmol/L Carbon Dioxide 37 H (22-30) mmol/L BUN 34 H (9-20) mg/dL Glucose 217 H (74-99) mg/dL POC Glucose (mg/dL) (75-99) mg/dL 08/24/18 Range/Units 12:10 WBC (3.8-10.6) k/uL MCHC (31.0-37.0) g/dL Neutrophils # (1.3-7.7) k/uL PT (9.0-12.0) sec INR (<1.2) Chloride (98-107) mmol/L Carbon Dioxide (22-30) mmol/L BUN (9-20) mg/dL Glucose (74-99) mg/dL POC Glucose (mg/dL) 116 H (75-99) mg/dL Microbiology - Last 24 Hours (Table) 08/21/18 12:02 Blood Culture - Preliminary Blood No Growth after 72 hours Assessment and Plan Assessment: Acute on chronic hypoxic respiratory failure secondary to COPD Acute COPD exacerbation Acute tracheobronchitis Paroxysmal atrial fibrillation on anticoagulation at home with warfarin Hypertension Hyperlipidemia Osteoarthritis Chronic CHF with ejection fraction unknown Nicotine addiction Plan: Continue current medication regime ,monitoring and symptomatic treatment. Maintain nebulized bronchodilators, steroids and antibiotics. Coumadin dosing. Smoking cessation readdressed. Discharge planning in progress for tomorrow, pending pulmonary clearance. The impression and plan of care has been dictated as directed. : I performed a history and examination of this patient, discussed the same with the dictator. I agree with the dictator's note ,documented as a scribe. Any additional findings or plans will be noted.
--- NOTE | 2018-08-24 16:42 | P.PN ---
Subjective Progress Note Date: 08/24/18 Principal diagnosis: Shortness of breath, related to acute COPD exacerbation. Progress note dated 08/23/2018 This is a 68-year-old male well-known to our service. He is admitted with a diagnosis of COPD exacerbation, acute on chronic hypoxemic respiratory failure, hyperlipidemia, ongoing tobacco use atrial fibrillation and heart failure benign essential hypertension DJD pneumonia and glaucoma. The patient is feeling a bit better today than yesterday. Still very short of breath. Lots of cough wheezing and chest tightness. His ground layer is my partner Dr. Quarles. The patient unfortunately continues to smoke. He states that he smokes about a half a pack a day. His confirms that. He denies any chest pain or chest discomfort. No palpitations. No nausea vomiting diarrhea. No fever or chills. Chest x-ray only showed evidence of COPD. On 08/24/2018 patient seen in follow-up on medical surgical floor. He states he is about 30-40% improved, since admission. His lung sounds are still tight and wheezy, diminished. Pulse ox on 3 L per nasal cannula was 93%, he is afebrile, with culture remains negative. He continues on empiric antibiotics in the form of Zithromax and Rocephin, he is on nebulized bronchodilators, he is on oral Lasix, and IV steroids, and he is improving. Objective - Vital Signs Vital signs: Vital Signs Temp 98.2 F 08/24/18 14:26 Pulse 95 08/24/18 15:55 Resp 20 08/24/18 14:26 BP 123/65 08/24/18 14:26 Pulse Ox 93 L 08/24/18 15:42 Intake & Output 08/23/18 08/24/18 08/24/18 18:59 06:59 18:59 Intake Total 1200 900 480 Balance 1200 900 480 Weight 92.5 kg Intake: Oral 1200 900 480 Other: # Voids 1 1 2 # Bowel Movements 0 - Exam No acute distress, oriented 3. Nasal O2 in place. No audible wheezing. No use of accessory muscles. HEENT examination is grossly unremarkable. Mucous membranes are moist. No oral lesions. Neck supple. Full range of motion. No adenopathy thyromegaly or neck vein distention. Cardiovascular examination reveals regular rhythm rate. S1-S2 normal. No S3 or S4. No discernible murmur noted. Lungs reveal diffuse inspiratory and expiratory wheezes and rhonchi. Breath sounds are diminished. There is prolongation on forced maneuver. Adventitious lung sounds are more prominent on forced maneuver. No crackles. Breath sounds equal bilaterally. Abdomen soft bowel sounds are heard. No masses or tenderness. Extremities are intact. No cyanosis clubbing or edema. Skin is without rash or lesion. Neurologic examination is brief but nonfocal. - Labs CBC & Chem 7: 08/24/18 09:16 08/24/18 09:16 Labs: Abnormal Lab Results - Last 24 Hours (Table) 08/23/18 08/23/18 08/24/18 Range/Units 16:42 20:25 07:08 WBC (3.8-10.6) k/uL MCHC (31.0-37.0) g/dL Neutrophils # (1.3-7.7) k/uL PT (9.0-12.0) sec INR (<1.2) Chloride (98-107) mmol/L Carbon Dioxide (22-30) mmol/L BUN (9-20) mg/dL Glucose (74-99) mg/dL POC Glucose (mg/dL) 131 H 192 H 117 H (75-99) mg/dL 08/24/18 08/24/18 08/24/18 Range/Units 09:16 09:16 09:16 WBC 24.3 H (3.8-10.6) k/uL MCHC 29.6 L (31.0-37.0) g/dL Neutrophils # 22.6 H (1.3-7.7) k/uL PT 18.3 H (9.0-12.0) sec INR 2.0 H (<1.2) Chloride 95 L (98-107) mmol/L Carbon Dioxide 37 H (22-30) mmol/L BUN 34 H (9-20) mg/dL Glucose 217 H (74-99) mg/dL POC Glucose (mg/dL) (75-99) mg/dL 08/24/18 Range/Units 12:10 WBC (3.8-10.6) k/uL MCHC (31.0-37.0) g/dL Neutrophils # (1.3-7.7) k/uL PT (9.0-12.0) sec INR (<1.2) Chloride (98-107) mmol/L Carbon Dioxide (22-30) mmol/L BUN (9-20) mg/dL Glucose (74-99) mg/dL POC Glucose (mg/dL) 116 H (75-99) mg/dL Microbiology - Last 24 Hours (Table) 08/21/18 12:02 Blood Culture - Preliminary Blood No Growth after 72 hours Assessment and Plan Plan: COPD exacerbation, possibly complicated by mild tracheobronchitis Acute on chronic hypoxemic respiratory failure History of hyperlipidemia History of ongoing tobacco use with nicotine addiction History of atrial fibrillation History of heart failure. History of benign essential hypertension History of DJD History of pneumonia History of glaucoma Plan: We'll continue current medical treatment, continue with IV steroids, nebulized bronchodilators, Symbicort, and current antibiotic coverage. She is making slow improvement, however not ready for discharge yet, tobacco cessation counseling was done, continue to follow I performed a history & physical examination of the patient and discussed their management with my nurse practitioner, Chasity Wheeler. I reviewed the nurse practitioner's note and agree with the documented findings and plan of care. Lung sounds are positive for diffuse wheezes throughout the lung limon. The findings and the impression was discussed with the patient. I attest to the documentation by the nurse practitioner. Time with Patient: Less than 30
[2018-08-24 17:13] LABS: Glucose,Whole Blood 184 mg/dL (75-99)
[2018-08-24] MEDS ORDERED: WARFARIN 5 MG TAB PO ONE (18:00)
[2018-08-24] MEDS ORDERED: WARFARIN 5 MG TAB PO SCH (18:45)
[2018-08-24 20:45] LABS: Glucose,Whole Blood 112 mg/dL (75-99)
[2018-08-24] MEDS: ATORVASTATIN 20 MG TAB PO SCH (21:28)
[2018-08-24] MEDS: LATANOPROST 0.005% OPHTH DROPS 2.5 ML BTL BOTH EYES SCH (21:29)
[2018-08-25] MEDS: methylPREDNISolone SOD SUCCI 125 MG/2 ML VIAL IV SCH ×5 (01:05→23:32)
[2018-08-25 07:05] LABS: Glucose,Whole Blood 121 mg/dL (75-99)
[2018-08-25] MEDS: INSULIN ASPART 100 UNIT/ML 1 ML 10 ML VIAL SQ SCH ×4 (07:25→20:38)
[2018-08-25] MEDS: IPRATROPIUM-ALBUTEROL 3 ML NEB INHALATION SCH ×4 (07:59→20:04)
[2018-08-25] MEDS: SYMBICORT 160-4.5 MCG INHALER INHALATION SCH ×2 (07:59→20:04)
[2018-08-25] MEDS: LISINOPRIL 5 MG TAB PO SCH (08:53)
[2018-08-25] MEDS: SPIRONOLACTONE 25 MG TAB PO SCH (08:53)
[2018-08-25] MEDS: FUROSEMIDE 20 MG TAB PO SCH (08:53)
[2018-08-25] MEDS: AZITHROMYCIN 500 MG TAB PO SCH (08:53)
[2018-08-25 09:32] LABS: Basophils % (A) 0 %; Eosinophils % (A) 0 %; HCT 43.5 % (39.0-53.0); HGB 12.7 gm/dL (13.0-17.5); Hypochromasia Marked; Lymphocytes # (A) 0.8 k/uL (1.0-4.8); Lymphocytes % (A) 4 %; MCH 28.8 pg (25.0-35.0); MCHC 29.2 g/dL (31.0-37.0); MCV 98.6 fL (80.0-100.0); Macrocytosis Slight; Mean Platelet Volume 7.1; Monocytes # (A) 0.8 k/uL (0-1.0); Monocytes % (A) 4 %; Neutrophils # (A) 15.7 k/uL (1.3-7.7); Neutrophils % (A) 90 %; Platelet Count 308 k/uL (150-450); RBC 4.41 m/uL (4.30-5.90); RDW 15.3 % (11.5-15.5); WBC 17.4 k/uL (3.8-10.6)
[2018-08-25 09:36] LABS: INR 1.5 (<1.2); Prothrombin Time 13.7 sec (9.0-12.0)
[2018-08-25 09:47] LABS: Blood Urea Nitrogen 39 mg/dL (9-20); Calcium 9.1 mg/dL (8.4-10.2); Chloride 92 mmol/L (98-107); Glucose 118 mg/dL (74-99); Potassium 5.3 mmol/L (3.5-5.1); Sodium 139 mmol/L (137-145)
[2018-08-25 09:53] LABS: Anion Gap 5 mmol/L
[2018-08-25 10:11] LABS: Carbon Dioxide 42 mmol/L (22-30)
--- NOTE | 2018-08-25 12:27 | P.PN ---
Subjective Progress Note Date: 08/25/18 Principal diagnosis: Acute exacerbation of chronic obstructive pulmonary Progress note dated 08/23/2018 This is a 68-year-old male well-known to our service. He is admitted with a diagnosis of COPD exacerbation, acute on chronic hypoxemic respiratory failure, hyperlipidemia, ongoing tobacco use atrial fibrillation and heart failure benign essential hypertension DJD pneumonia and glaucoma. The patient is feeling a bit better today than yesterday. Still very short of breath. Lots of cough wheezing and chest tightness. His ingot buggy operator is my partner Dr. Quarles. The patient unfortunately continues to smoke. He states that he smokes about a half a pack a day. His confirms that. He denies any chest pain or chest discomfort. No palpitations. No nausea vomiting diarrhea. No fever or chills. Chest x-ray only showed evidence of COPD. On 08/24/2018 patient seen in follow-up on medical surgical floor. He states he is about 30-40% improved, since admission. His lung sounds are still tight and wheezy, diminished. Pulse ox on 3 L per nasal cannula was 93%, he is afebrile, with culture remains negative. He continues on empiric antibiotics in the form of Zithromax and Rocephin, he is on nebulized bronchodilators, he is on oral Lasix, and IV steroids, and he is improving. Patient is seen today 08/25/2018 in follow-up on the regular medical floor. He is awake and alert in no acute distress. He has been quite slow to progress. He is still quite bronchospastic and wheezy. Still not back to his baseline. Blood culture reveals no growth. He is currently afebrile. Maintaining O2 saturations in the 90s on 3 L/m per nasal cannula. White count 17.4. Hemoglobin 12.7. INR 1.5. Bicarb 42. Creatinine 0.88. Remains on DuoNeb inhalations, Symbicort, IV Solu-Medrol. He is empirically on azithromycin. Objective - Vital Signs Vital signs: Vital Signs Temp 98.3 F 08/25/18 07:00 Pulse 100 08/25/18 08:10 Resp 18 08/25/18 08:00 BP 99/59 08/25/18 07:00 Pulse Ox 95 08/25/18 07:00 Intake & Output 08/24/18 08/25/18 08/25/18 18:59 06:59 18:59 Intake Total 480 1000 Balance 480 1000 Weight 93.123 kg Intake: Oral 480 1000 Other: Voiding Method Toilet # Voids 2 1 # Bowel Movements 0 - Exam GENERAL EXAM: Alert, active, comfortable in no apparent distress. HEAD: Normocephalic. EYES: Normal reaction of pupils, equal size. NOSE: Clear with pink turbinates. THROAT: No erythema or exudates. NECK: No masses, no JVD. CHEST: No chest wall deformity. LUNGS: Equal air entry with bilateral end expiratory wheeze area diminished CVS: S1 and S2 normal with no audible murmur, regular rhythm. ABDOMEN: No hepatosplenomegaly, normal bowel sounds, no guarding or rigidity. SPINE: No scoliosis or deformity SKIN: No rashes CENTRAL NERVOUS SYSTEM: No focal deficits, tone is normal in all 4 extremities. EXTREMITIES: There is no peripheral edema. No clubbing, no cyanosis. Peripheral pulses are intact. - Labs CBC & Chem 7: 08/25/18 08:25 08/25/18 08:25 Labs: Abnormal Lab Results - Last 24 Hours (Table) 08/24/18 08/24/18 08/25/18 Range/Units 17:12 20:39 06:44 WBC (3.8-10.6) k/uL Hgb (13.0-17.5) gm/dL MCHC (31.0-37.0) g/dL Neutrophils # (1.3-7.7) k/uL Lymphocytes # (1.0-4.8) k/uL PT (9.0-12.0) sec INR (<1.2) Potassium (3.5-5.1) mmol/L Chloride (98-107) mmol/L Carbon Dioxide (22-30) mmol/L BUN (9-20) mg/dL Glucose (74-99) mg/dL POC Glucose (mg/dL) 184 H 112 H 121 H (75-99) mg/dL 08/25/18 08/25/18 08/25/18 Range/Units 08:25 08:25 09:02 WBC 17.4 H (3.8-10.6) k/uL Hgb 12.7 L (13.0-17.5) gm/dL MCHC 29.2 L (31.0-37.0) g/dL Neutrophils # 15.7 H (1.3-7.7) k/uL Lymphocytes # 0.8 L (1.0-4.8) k/uL PT 13.7 H (9.0-12.0) sec INR 1.5 H (<1.2) Potassium 5.3 H (3.5-5.1) mmol/L Chloride 92 L (98-107) mmol/L Carbon Dioxide 42 H* (22-30) mmol/L BUN 39 H (9-20) mg/dL Glucose 118 H (74-99) mg/dL POC Glucose (mg/dL) (75-99) mg/dL Microbiology - Last 24 Hours (Table) 08/21/18 12:02 Blood Culture - Preliminary Blood No Growth after 72 hours Assessment and Plan Assessment: Impression: #1 Acute on chronic hypoxemic respiratory failure secondary to an acute exacerbation of COPD. #2 Acute exacerbation of chronic obstructive pulmonary disease complicated by mild tracheobronchitis. #3 Hyperlipidemia. #4 Chronic and ongoing tobacco dependence. #5 Atrial fibrillation. #6 History of congestive heart failure. #7 Hypertension. #8 History of DJD. #9 History of previous pneumonias. #10 History of glaucoma. Plan: The patient was seen and evaluated by Dr. Quarles. We'll continue with his current treatment plan for now. He has been slow to progress. We'll obtain arterial blood gases to evaluate the status of his hypercapnia. Bicarb is 42 today. We will continue his current treatment plan. He is again educated regarding the importance of complete smoking cessation. We will increase his activity as tolerated. We'll continue to follow and make further recommendations based on his clinical status. I, the cosigning physician, performed a history & physical examination of the patient. Lungs sounds with bilateral end expiratory wheeze. Diminished.. Maintaining good O2 saturations in the 90s on 3 L/m per nasal cannula. I discussed the assessment and plan of care with my nurse practitioner, Kaycee Yoo. I attest to the above note as dictated by her.
[2018-08-25 12:31] LABS: ABG Base Excess 12.2 mmol/L; ABG Oxygen Saturation 88.1 % (94-97); ABG PH 7.36 (7.35-7.45)
[2018-08-25 12:40] LABS: ABG PCO2 73 mmHg (35-45)
[2018-08-25 12:41] LABS: Glucose,Whole Blood 149 mg/dL (75-99)
[2018-08-25 12:41] LABS: ABG HCO3 40 mmol/L (21-25); ABG PO2 55 mmHg (83-108)
[2018-08-25 16:57] LABS: Glucose,Whole Blood 190 mg/dL (75-99)
[2018-08-25] MEDS ORDERED: WARFARIN 7.5 MG TAB PO ONE (18:00)
[2018-08-25 20:33] LABS: Glucose,Whole Blood 130 mg/dL (75-99)
[2018-08-25] MEDS: LATANOPROST 0.005% OPHTH DROPS 2.5 ML BTL BOTH EYES SCH (21:19)
[2018-08-25] MEDS: ATORVASTATIN 20 MG TAB PO SCH (21:19)
[2018-08-26] MEDS: methylPREDNISolone SOD SUCCI 125 MG/2 ML VIAL IV SCH ×3 (05:39→17:34)
[2018-08-26] MEDS: SYMBICORT 160-4.5 MCG INHALER INHALATION SCH ×2 (07:20→19:52)
[2018-08-26] MEDS: IPRATROPIUM-ALBUTEROL 3 ML NEB INHALATION SCH ×5 (07:20→20:01)
[2018-08-26 07:34] LABS: Glucose,Whole Blood 107 mg/dL (75-99)
[2018-08-26] MEDS: INSULIN ASPART 100 UNIT/ML 1 ML 10 ML VIAL SQ SCH ×4 (07:51→21:25)
[2018-08-26] MEDS: LISINOPRIL 5 MG TAB PO SCH (07:51)
[2018-08-26] MEDS: FUROSEMIDE 20 MG TAB PO SCH (07:52)
[2018-08-26] MEDS: SPIRONOLACTONE 25 MG TAB PO SCH (07:52)
[2018-08-26] MEDS: AZITHROMYCIN 500 MG TAB PO SCH (07:52)
[2018-08-26 09:30] LABS: Basophils % (A) 0 %; Eosinophils % (A) 0 %; HCT 43.5 % (39.0-53.0); Hypochromasia Marked; Lymphocytes # (A) 0.6 k/uL (1.0-4.8); Lymphocytes % (A) 5 %; MCH 29.4 pg (25.0-35.0); MCHC 29.9 g/dL (31.0-37.0); MCV 98.3 fL (80.0-100.0); Monocytes # (A) 0.3 k/uL (0-1.0); Monocytes % (A) 2 %; Neutrophils # (A) 12.3 k/uL (1.3-7.7); Neutrophils % (A) 92 %; Platelet Count 278 k/uL (150-450); RBC 4.43 m/uL (4.30-5.90); RDW 15.1 % (11.5-15.5); WBC 13.3 k/uL (3.8-10.6)
[2018-08-26 09:43] LABS: INR 1.8 (<1.2); Prothrombin Time 16.2 sec (9.0-12.0)
[2018-08-26 09:55] LABS: Anion Gap 7 mmol/L; Blood Urea Nitrogen 33 mg/dL (9-20); Calcium 8.8 mg/dL (8.4-10.2); Chloride 92 mmol/L (98-107); Glucose 220 mg/dL (74-99); Potassium 5.4 mmol/L (3.5-5.1); Sodium 139 mmol/L (137-145)
[2018-08-26 10:10] LABS: Carbon Dioxide 40 mmol/L (22-30)
[2018-08-26 12:24] LABS: Glucose,Whole Blood 107 mg/dL (75-99)
--- NOTE | 2018-08-26 14:08 | P.PN ---
Subjective Progress Note Date: 08/26/18 Principal diagnosis: Acute exacerbation of chronic obstructive pulmonary Progress note dated 08/23/2018 This is a 68-year-old male well-known to our service. He is admitted with a diagnosis of COPD exacerbation, acute on chronic hypoxemic respiratory failure, hyperlipidemia, ongoing tobacco use atrial fibrillation and heart failure benign essential hypertension DJD pneumonia and glaucoma. The patient is feeling a bit better today than yesterday. Still very short of breath. Lots of cough wheezing and chest tightness. His supply coordinator is my partner Dr. Quarles. The patient unfortunately continues to smoke. He states that he smokes about a half a pack a day. His confirms that. He denies any chest pain or chest discomfort. No palpitations. No nausea vomiting diarrhea. No fever or chills. Chest x-ray only showed evidence of COPD. On 08/24/2018 patient seen in follow-up on medical surgical floor. He states he is about 30-40% improved, since admission. His lung sounds are still tight and wheezy, diminished. Pulse ox on 3 L per nasal cannula was 93%, he is afebrile, with culture remains negative. He continues on empiric antibiotics in the form of Zithromax and Rocephin, he is on nebulized bronchodilators, he is on oral Lasix, and IV steroids, and he is improving. Patient is seen today 08/25/2018 in follow-up on the regular medical floor. He is awake and alert in no acute distress. He has been quite slow to progress. He is still quite bronchospastic and wheezy. Still not back to his baseline. Blood culture reveals no growth. He is currently afebrile. Maintaining O2 saturations in the 90s on 3 L/m per nasal cannula. White count 17.4. Hemoglobin 12.7. INR 1.5. Bicarb 42. Creatinine 0.88. Remains on DuoNeb inhalations, Symbicort, IV Solu-Medrol. He is empirically on azithromycin. The patient is seen again today 08/26/2018 in follow-up on the regular medical floor. He is slightly better today but not quite back to his baseline. He still somewhat bronchospastic and wheezy. Still dyspneic on minimal exertion. He's been slow to progress. He remains on DuoNeb, Symbicort, IV Solu-Medrol. Continued on ceftriaxone and azithromycin. Blood culture reveals no growth. White count 13.3. Hemoglobin 13.0. INR 1.8. Creatinine 0.96. Bicarb 40. A blood gases on 32% FiO2 revealed a PaO2 of 55, pCO2 73, pH 7.36. Objective - Vital Signs Vital signs: Vital Signs Temp 97.5 F L 08/26/18 06:11 Pulse 94 08/26/18 11:32 Resp 18 08/26/18 07:52 BP 129/65 08/26/18 06:11 Pulse Ox 93 L 08/26/18 06:11 Intake & Output 08/25/18 08/26/18 08/26/18 18:59 06:59 18:59 Intake Total 240 360 Balance 240 360 Weight 93.123 kg Intake: Oral 240 360 Other: Voiding Method Toilet Toilet Toilet # Voids 2 1 - Exam GENERAL EXAM: Alert, active, comfortable in no apparent distress. HEAD: Normocephalic. EYES: Normal reaction of pupils, equal size. NOSE: Clear with pink turbinates. THROAT: No erythema or exudates. NECK: No masses, no JVD. CHEST: No chest wall deformity. LUNGS: Equal air entry with bilateral end expiratory wheeze, diminished CVS: S1 and S2 normal with no audible murmur, regular rhythm. ABDOMEN: No hepatosplenomegaly, normal bowel sounds, no guarding or rigidity. SPINE: No scoliosis or deformity SKIN: No rashes CENTRAL NERVOUS SYSTEM: No focal deficits, tone is normal in all 4 extremities. EXTREMITIES: There is no peripheral edema. No clubbing, no cyanosis. Peripheral pulses are intact. - Labs CBC & Chem 7: 08/26/18 09:04 08/26/18 09:04 Labs: Abnormal Lab Results - Last 24 Hours (Table) 08/25/18 08/25/18 08/26/18 Range/Units 16:55 20:32 06:54 WBC (3.8-10.6) k/uL MCHC (31.0-37.0) g/dL Neutrophils # (1.3-7.7) k/uL Lymphocytes # (1.0-4.8) k/uL PT (9.0-12.0) sec INR (<1.2) Potassium (3.5-5.1) mmol/L Chloride (98-107) mmol/L Carbon Dioxide (22-30) mmol/L BUN (9-20) mg/dL Glucose (74-99) mg/dL POC Glucose (mg/dL) 190 H 130 H 107 H (75-99) mg/dL 08/26/18 08/26/18 08/26/18 Range/Units 09:04 09:04 09:04 WBC 13.3 H (3.8-10.6) k/uL MCHC 29.9 L (31.0-37.0) g/dL Neutrophils # 12.3 H (1.3-7.7) k/uL Lymphocytes # 0.6 L (1.0-4.8) k/uL PT 16.2 H (9.0-12.0) sec INR 1.8 H (<1.2) Potassium 5.4 H (3.5-5.1) mmol/L Chloride 92 L (98-107) mmol/L Carbon Dioxide 40 H (22-30) mmol/L BUN 33 H (9-20) mg/dL Glucose 220 H (74-99) mg/dL POC Glucose (mg/dL) (75-99) mg/dL 08/26/18 Range/Units 12:19 WBC (3.8-10.6) k/uL MCHC (31.0-37.0) g/dL Neutrophils # (1.3-7.7) k/uL Lymphocytes # (1.0-4.8) k/uL PT (9.0-12.0) sec INR (<1.2) Potassium (3.5-5.1) mmol/L Chloride (98-107) mmol/L Carbon Dioxide (22-30) mmol/L BUN (9-20) mg/dL Glucose (74-99) mg/dL POC Glucose (mg/dL) 107 H (75-99) mg/dL Microbiology - Last 24 Hours (Table) 08/21/18 12:02 Blood Culture - Preliminary Blood No Growth after 96 hours Assessment and Plan Assessment: Impression: #1 Acute on chronic hypoxemic respiratory failure secondary to an acute exacerbation of COPD. #2 Acute exacerbation of chronic obstructive pulmonary disease complicated by mild tracheobronchitis. #3 Hyperlipidemia. #4 Chronic and ongoing tobacco dependence. #5 Atrial fibrillation. #6 History of congestive heart failure. #7 Hypertension. #8 History of DJD. #9 History of previous pneumonias. #10 History of glaucoma. Plan: The patient was seen and evaluated by Dr. Quarles. Yesterday his blood gases revealed hypoxemia and hypercapnia as suspected. We'll continue with his current treatment plan for now. We will continue his current treatment plan. He is again educated regarding the importance of complete smoking cessation. We will increase his activity as tolerated. We'll continue to follow and make further recommendations based on his clinical status. I, the cosigning physician, performed a history & physical examination of the patient. Lungs sounds with bilateral end expiratory wheeze. Diminished.. Maintaining good O2 saturations in the 90s on 3 L/m per nasal cannula. I discussed the assessment and plan of care with my nurse practitioner, Kaycee Yoo. I attest to the above note as dictated by her.
[2018-08-26 17:14] LABS: Glucose,Whole Blood 135 mg/dL (75-99)
[2018-08-26] MEDS ORDERED: WARFARIN 10 MG TAB PO ONE (18:00)
[2018-08-26 21:04] LABS: Glucose,Whole Blood 186 mg/dL (75-99)
[2018-08-26] MEDS: LATANOPROST 0.005% OPHTH DROPS 2.5 ML BTL BOTH EYES SCH (21:25)
[2018-08-26] MEDS: ATORVASTATIN 20 MG TAB PO SCH (21:25)
--- NOTE | 2018-08-26 23:55 | P.PN ---
Subjective Progress Note Date: 08/25/18 Progress note being dictated for Dr. Mcadams Interval history:Patient is a 68-year-old male with a known history of COPD on home oxygen, chronic hypoxic respiratory failure, use oxygen at night, hypertension, hyperlipidemia came to ER with complaints of shortness of breath and hypoxia. Patient does have history o of COPD and follows with Dr. Quarles as an outpatient. Patient has been having progressive shortness of breath for the past 2 weeks. Patient felt lightheaded and weak this morning. His pulse ox dropped down to 66% with oxygen. Patient does have cough but no recent change in quantity of frequency. No fever no chills. Denied any chest pain. Chest x-ray showed no acute cardiopulmonary process EKG showed normal sinus rhythm. BNP 390, bicarb 35 Random blood sugar 247 Review of Systems Constitutional: Patient denies any fever or chills . No generalized weakness or weight loss. Abdomen: Patient denied nausea vomiting and diarrhea and abdominal pain. Cardiovascular: Patient denies any chest pain or short of breath no palpitations. Respiratory: Patient does have cough with whitish to green sputum production and shortness of breath Neurologic: Patient denied any numbness or tingling headache. Musculoskeletal: Patient denies any complaints of joint swelling or deformity. Skin: Negative Psychiatric: Negative Endocrine: No heat or cold intolerance. No recent weight gain. Genitourinary: No dysuria or hematuria. All other 14 point ROS negative except the above 08/24/2018 sitting up at bedside, no acute distress. Maintaining O2 sats in the low 90s on 3 L nasal cannula in a patient whose baseline is 2 L nasal cannula at rest. Reports occasional productive cough with thick white/pale yellow Secretions. INR 2, anticoagulated on Coumadin. Potential bronchoscopy discussed yesterday as per pulmonary. Afebrile. Denies chest pain, palpitations or increased shortness of breath. 08/25/2018 Maintained on nebulized bronchodilators, IV steroids, azithromycin .continue slow progress with no bronchoscopy planned at this time as per pulmonary. Maintaining O2 sats in the low to mid 90s on 3 L nasal cannula. Mild tachycardia. Bicarb 42. Afebrile, WBC 17.4, blood cultures report no growth. INR 1.5. Objective - Vital Signs Vital signs: Vital Signs Temp 97.9 F 08/25/18 14:39 Pulse 102 H 08/25/18 16:05 Resp 20 08/25/18 15:27 BP 120/64 08/25/18 14:39 Pulse Ox 90 L 08/25/18 14:39 Intake & Output 08/24/18 08/25/18 08/25/18 18:59 06:59 18:59 Intake Total 480 1000 240 Balance 480 1000 240 Weight 93.123 kg Intake: Oral 480 1000 240 Other: Voiding Method Toilet # Voids 2 1 2 # Bowel Movements 0 - Exam Patient is sitting up at side of the bed comfortably, no acute distress, awake alert and oriented. HEENT: Normocephalic. Neck is supple. Pupils reactive. Nostrils clear. Oral cavity is moist. Neck reveals no JVD, carotid bruits, or thyromegaly. CHEST EXAMINATION: Diminished air entry with Few scattered rhonchi, crackles. Bilateral diffuse expiratory wheezing. CARDIAC: Normal S1, S2 with no gallops. No murmurs ABDOMEN: Soft. Bowel sounds normal. No organomegaly. No abdominal bruits. Extremities: reveal no edema. No clubbing or cyanosis Neurologically awake, alert, oriented x3 with well-coordinated movements. No focal deficits noted - Labs CBC & Chem 7: 08/26/18 09:04 08/26/18 09:04 Labs: Abnormal Lab Results - Last 24 Hours (Table) 08/24/18 08/24/18 08/25/18 Range/Units 17:12 20:39 06:44 WBC (3.8-10.6) k/uL Hgb (13.0-17.5) gm/dL MCHC (31.0-37.0) g/dL Neutrophils # (1.3-7.7) k/uL Lymphocytes # (1.0-4.8) k/uL PT (9.0-12.0) sec INR (<1.2) ABG pCO2 (35-45) mmHg ABG pO2 (83-108) mmHg ABG HCO3 (21-25) mmol/L ABG O2 Saturation (94-97) % Potassium (3.5-5.1) mmol/L Chloride (98-107) mmol/L Carbon Dioxide (22-30) mmol/L BUN (9-20) mg/dL Glucose (74-99) mg/dL POC Glucose (mg/dL) 184 H 112 H 121 H (75-99) mg/dL 08/25/18 08/25/18 08/25/18 Range/Units 08:25 08:25 09:02 WBC 17.4 H (3.8-10.6) k/uL Hgb 12.7 L (13.0-17.5) gm/dL MCHC 29.2 L (31.0-37.0) g/dL Neutrophils # 15.7 H (1.3-7.7) k/uL Lymphocytes # 0.8 L (1.0-4.8) k/uL PT 13.7 H (9.0-12.0) sec INR 1.5 H (<1.2) ABG pCO2 (35-45) mmHg ABG pO2 (83-108) mmHg ABG HCO3 (21-25) mmol/L ABG O2 Saturation (94-97) % Potassium 5.3 H (3.5-5.1) mmol/L Chloride 92 L (98-107) mmol/L Carbon Dioxide 42 H* (22-30) mmol/L BUN 39 H (9-20) mg/dL Glucose 118 H (74-99) mg/dL POC Glucose (mg/dL) (75-99) mg/dL 08/25/18 08/25/18 Range/Units 12:19 12:24 WBC (3.8-10.6) k/uL Hgb (13.0-17.5) gm/dL MCHC (31.0-37.0) g/dL Neutrophils # (1.3-7.7) k/uL Lymphocytes # (1.0-4.8) k/uL PT (9.0-12.0) sec INR (<1.2) ABG pCO2 73 H* (35-45) mmHg ABG pO2 55 L* (83-108) mmHg ABG HCO3 40 H* (21-25) mmol/L ABG O2 Saturation 88.1 L (94-97) % Potassium (3.5-5.1) mmol/L Chloride (98-107) mmol/L Carbon Dioxide (22-30) mmol/L BUN (9-20) mg/dL Glucose (74-99) mg/dL POC Glucose (mg/dL) 149 H (75-99) mg/dL Microbiology - Last 24 Hours (Table) 08/21/18 12:02 Blood Culture - Preliminary Blood No Growth after 96 hours Assessment and Plan Assessment: Acute on chronic hypoxic respiratory failure secondary to COPD Acute COPD exacerbation Acute tracheobronchitis Paroxysmal atrial fibrillation on anticoagulation at home with warfarin Hypertension Hyperlipidemia Osteoarthritis Chronic CHF with ejection fraction unknown Nicotine addiction Plan: Continue current medication regime ,monitoring and symptomatic treatment. Maintain nebulized bronchodilators, steroids and antibiotics. Increase activity as tolerated. Smoking cessation readdressed. Close monitoring of electrolytes/bicarb with repeat labs ordered for a.m. The impression and plan of care has been dictated as directed. : I performed a history and examination of this patient, discussed the same with the dictator. I agree with the dictator's note ,documented as a scribe. Any additional findings or plans will be noted.
--- NOTE | 2018-08-27 00:01 | P.PN ---
Subjective Progress Note Date: 08/26/18 Progress note being dictated for Dr. Mcadams Interval history:Patient is a 68-year-old male with a known history of COPD on home oxygen, chronic hypoxic respiratory failure, use oxygen at night, hypertension, hyperlipidemia came to ER with complaints of shortness of breath and hypoxia. Patient does have history o of COPD and follows with Dr. Quarles as an outpatient. Patient has been having progressive shortness of breath for the past 2 weeks. Patient felt lightheaded and weak this morning. His pulse ox dropped down to 66% with oxygen. Patient does have cough but no recent change in quantity of frequency. No fever no chills. Denied any chest pain. Chest x-ray showed no acute cardiopulmonary process EKG showed normal sinus rhythm. BNP 390, bicarb 35 Random blood sugar 247 Review of Systems Constitutional: Patient denies any fever or chills . No generalized weakness or weight loss. Abdomen: Patient denied nausea vomiting and diarrhea and abdominal pain. Cardiovascular: Patient denies any chest pain or short of breath no palpitations. Respiratory: Patient does have cough with whitish to green sputum production and shortness of breath Neurologic: Patient denied any numbness or tingling headache. Musculoskeletal: Patient denies any complaints of joint swelling or deformity. Skin: Negative Psychiatric: Negative Endocrine: No heat or cold intolerance. No recent weight gain. Genitourinary: No dysuria or hematuria. All other 14 point ROS negative except the above 08/24/2018 sitting up at bedside, no acute distress. Maintaining O2 sats in the low 90s on 3 L nasal cannula in a patient whose baseline is 2 L nasal cannula at rest. Reports occasional productive cough with thick white/pale yellow Secretions. INR 2, anticoagulated on Coumadin. Potential bronchoscopy discussed yesterday as per pulmonary. Afebrile. Denies chest pain, palpitations or increased shortness of breath. 08/25/2018 Maintained on nebulized bronchodilators, IV steroids, azithromycin .continue slow progress with no bronchoscopy planned at this time as per pulmonary. Maintaining O2 sats in the low to mid 90s on 3 L nasal cannula. Mild tachycardia. Bicarb 42. Afebrile, WBC 17.4, blood cultures report no growth. INR 1.5. 08/26/2018 continues to improve on nebulized dilators, steroids, antibiotics. Remains wheezy. Bicarb improved, down to 40. Leukocytosis improving. Afebrile. INR 1.8. Objective - Vital Signs Vital signs: Vital Signs Temp 97.4 F L 08/26/18 22:36 Pulse 107 H 08/26/18 22:36 Resp 18 08/26/18 22:36 BP 125/66 08/26/18 22:36 Pulse Ox 91 L 08/26/18 22:36 Intake & Output 08/26/18 08/26/18 08/27/18 06:59 18:59 06:59 Intake Total 600 Balance 600 Weight 93.123 kg Intake: Oral 600 Other: Voiding Method Toilet Toilet Toilet # Voids 1 2 2 - Exam Patient is sitting up at side of the bed comfortably, no acute distress, awake alert and oriented. HEENT: Normocephalic. Neck is supple. Pupils reactive. Nostrils clear. Oral cavity is moist. Neck reveals no JVD, carotid bruits, or thyromegaly. CHEST EXAMINATION: Diminished air entry with Few scattered rhonchi, Bilateral diffuse expiratory wheezing. CARDIAC: Normal S1, S2 with no gallops. No murmurs ABDOMEN: Soft. Bowel sounds normal. No organomegaly. No abdominal bruits. Extremities: reveal no edema. No clubbing or cyanosis Neurologically awake, alert, oriented x3 with well-coordinated movements. No focal deficits noted - Labs CBC & Chem 7: 08/26/18 09:04 08/26/18 09:04 Labs: Abnormal Lab Results - Last 24 Hours (Table) 08/26/18 08/26/18 08/26/18 Range/Units 06:54 09:04 09:04 WBC 13.3 H (3.8-10.6) k/uL MCHC 29.9 L (31.0-37.0) g/dL Neutrophils # 12.3 H (1.3-7.7) k/uL Lymphocytes # 0.6 L (1.0-4.8) k/uL PT (9.0-12.0) sec INR (<1.2) Potassium 5.4 H (3.5-5.1) mmol/L Chloride 92 L (98-107) mmol/L Carbon Dioxide 40 H (22-30) mmol/L BUN 33 H (9-20) mg/dL Glucose 220 H (74-99) mg/dL POC Glucose (mg/dL) 107 H (75-99) mg/dL 08/26/18 08/26/18 08/26/18 Range/Units 09:04 12:19 17:12 WBC (3.8-10.6) k/uL MCHC (31.0-37.0) g/dL Neutrophils # (1.3-7.7) k/uL Lymphocytes # (1.0-4.8) k/uL PT 16.2 H (9.0-12.0) sec INR 1.8 H (<1.2) Potassium (3.5-5.1) mmol/L Chloride (98-107) mmol/L Carbon Dioxide (22-30) mmol/L BUN (9-20) mg/dL Glucose (74-99) mg/dL POC Glucose (mg/dL) 107 H 135 H (75-99) mg/dL 08/26/18 Range/Units 21:03 WBC (3.8-10.6) k/uL MCHC (31.0-37.0) g/dL Neutrophils # (1.3-7.7) k/uL Lymphocytes # (1.0-4.8) k/uL PT (9.0-12.0) sec INR (<1.2) Potassium (3.5-5.1) mmol/L Chloride (98-107) mmol/L Carbon Dioxide (22-30) mmol/L BUN (9-20) mg/dL Glucose (74-99) mg/dL POC Glucose (mg/dL) 186 H (75-99) mg/dL Microbiology - Last 24 Hours (Table) 08/21/18 12:02 Blood Culture - Preliminary Blood No Growth after 120 hours Assessment and Plan Assessment: Acute on chronic hypoxic respiratory failure secondary to COPD Acute COPD exacerbation Acute tracheobronchitis Paroxysmal atrial fibrillation on anticoagulation at home with warfarin Hypertension Hyperlipidemia Osteoarthritis Chronic CHF with ejection fraction unknown Nicotine addiction Plan: Continue current medication regime ,monitoring and symptomatic treatment. Persistent wheezing-especially exertional- maintain nebulized bronchodilators , steroids and antibiotics Zithromax /Rocephin. Increase activity as tolerated. Smoking cessation readdressed. Aldactone discontinued, Low potassium diet, potassium 5.4. The impression and plan of care has been dictated as directed. : I performed a history and examination of this patient, discussed the same with the dictator. I agree with the dictator's note ,documented as a scribe. Any additional findings or plans will be noted.
[2018-08-27] MEDS: methylPREDNISolone SOD SUCCI 125 MG/2 ML VIAL IV SCH ×5 (00:02→23:50)
[2018-08-27 07:05] LABS: Glucose,Whole Blood 107 mg/dL (75-99)
[2018-08-27] MEDS: IPRATROPIUM-ALBUTEROL 3 ML NEB INHALATION SCH ×3 (07:28→20:14)
[2018-08-27] MEDS: SYMBICORT 160-4.5 MCG INHALER INHALATION SCH ×2 (07:28→20:15)
[2018-08-27] MEDS: FUROSEMIDE 20 MG TAB PO SCH (09:09)
[2018-08-27] MEDS: LISINOPRIL 5 MG TAB PO SCH (09:09)
[2018-08-27] MEDS: AZITHROMYCIN 500 MG TAB PO SCH (09:10)
[2018-08-27] MEDS: INSULIN ASPART 100 UNIT/ML 1 ML 10 ML VIAL SQ SCH ×4 (09:13→20:55)
[2018-08-27 10:09] LABS: Blood Urea Nitrogen 38 mg/dL (9-20); Calcium 8.7 mg/dL (8.4-10.2); Chloride 92 mmol/L (98-107); Glucose 212 mg/dL (74-99); Potassium 5.1 mmol/L (3.5-5.1); Sodium 138 mmol/L (137-145)
[2018-08-27 10:11] LABS: INR 2.2 (<1.2); Prothrombin Time 19.6 sec (9.0-12.0)
[2018-08-27 10:16] LABS: Anion Gap 3 mmol/L
[2018-08-27 10:22] LABS: Carbon Dioxide 43 mmol/L (22-30)
[2018-08-27 12:14] LABS: Glucose,Whole Blood 135 mg/dL (75-99)
--- NOTE | 2018-08-27 15:06 | P.PN ---
Subjective Progress Note Date: 08/27/18 Principal diagnosis: Shortness of breath, related to acute COPD exacerbation. Progress note dated 08/23/2018 This is a 68-year-old male well-known to our service. He is admitted with a diagnosis of COPD exacerbation, acute on chronic hypoxemic respiratory failure, hyperlipidemia, ongoing tobacco use atrial fibrillation and heart failure benign essential hypertension DJD pneumonia and glaucoma. The patient is feeling a bit better today than yesterday. Still very short of breath. Lots of cough wheezing and chest tightness. His capacitor repairer is my partner Dr. Quarles. The patient unfortunately continues to smoke. He states that he smokes about a half a pack a day. His confirms that. He denies any chest pain or chest discomfort. No palpitations. No nausea vomiting diarrhea. No fever or chills. Chest x-ray only showed evidence of COPD. On 08/24/2018 patient seen in follow-up on medical surgical floor. He states he is about 30-40% improved, since admission. His lung sounds are still tight and wheezy, diminished. Pulse ox on 3 L per nasal cannula was 93%, he is afebrile, with culture remains negative. He continues on empiric antibiotics in the form of Zithromax and Rocephin, he is on nebulized bronchodilators, he is on oral Lasix, and IV steroids, and he is improving. On 08/27/2018 patient seen in follow-up on medical surgical floor. Improving, although there is some still residual wheezing and dyspnea with exertion. Remains on 2 L per nasal cannula, his pulse ox is 97%, afebrile, hemodynamically stable. Remains on Rocephin, and Zithromax, nebulized bronchodilators, Symbicort. Blood cultures are negative. Patient is afebrile. WBC is 13.3, hemoglobin is 13.0, sodium is 138, potassium is 5.2, chloride is 92, CO2 is 43, B1 is 38 and creatinine 0.92. Objective - Vital Signs Vital signs: Vital Signs Temp 98 F 08/27/18 08:27 Pulse 80 08/27/18 12:00 Resp 18 08/27/18 08:27 BP 128/74 08/27/18 08:27 Pulse Ox 89 L 08/27/18 08:27 Intake & Output 08/26/18 08/27/1808/27/18 18:59 06:59 18:59 Intake Total 600 400 400 Balance 600 400 400 Weight 92.9 kg Intake: Oral 600 400 400 Other: Voiding Method Toilet Toilet Toilet # Voids 2 1 2 - Exam No acute distress, oriented 3. Nasal O2 in place. No audible wheezing. No use of accessory muscles. HEENT examination is grossly unremarkable. Mucous membranes are moist. No oral lesions. Neck supple. Full range of motion. No adenopathy thyromegaly or neck vein distention. Cardiovascular examination reveals regular rhythm rate. S1-S2 normal. No S3 or S4. No discernible murmur noted. Lungs reveal diffuse inspiratory and expiratory wheezes and rhonchi. Breath sounds are diminished. There is prolongation on forced maneuver. Adventitious lung sounds are more prominent on forced maneuver. No crackles. Breath sounds equal bilaterally. Abdomen soft bowel sounds are heard. No masses or tenderness. Extremities are intact. No cyanosis clubbing or edema. Skin is without rash or lesion. Neurologic examination is brief but nonfocal. - Labs CBC & Chem 7: 08/26/18 09:04 08/27/18 09:35 Labs: Abnormal Lab Results - Last 24 Hours (Table) 08/26/18 08/26/18 08/27/18 Range/Units 17:12 21:03 06:57 PT (9.0-12.0) sec INR (<1.2) Chloride (98-107) mmol/L Carbon Dioxide (22-30) mmol/L BUN (9-20) mg/dL Glucose (74-99) mg/dL POC Glucose (mg/dL) 135 H 186 H 107 H (75-99) mg/dL 08/27/18 08/27/18 08/27/18 Range/Units 09:35 09:35 11:49 PT 19.6 H (9.0-12.0) sec INR 2.2 H (<1.2) Chloride 92 L (98-107) mmol/L Carbon Dioxide 43 H* (22-30) mmol/L BUN 38 H (9-20) mg/dL Glucose 212 H (74-99) mg/dL POC Glucose (mg/dL) 135 H (75-99) mg/dL Microbiology - Last 24 Hours (Table) 08/21/18 12:02 Blood Culture - Final Blood No Growth after 144 hours Assessment and Plan Plan: COPD exacerbation, possibly complicated by mild tracheobronchitis Acute on chronic hypoxemic respiratory failure History of hyperlipidemia History of ongoing tobacco use with nicotine addiction History of atrial fibrillation History of heart failure. History of benign essential hypertension History of DJD History of pneumonia History of glaucoma Plan: Patient is starting to improve, though there is still some residual tingling, and patient is dyspneic with exertion, will continue current medical treatment, continue antibiotics, namely blood bronchodilators, IV steroids, not ready for discharge, we'll transition to oral prednisone tomorrow possibly consider for discharge home provided patient continues to improve. I performed a history & physical examination of the patient and discussed their management with my nurse practitioner, Chasity Wheeler. I reviewed the nurse practitioner's note and agree with the documented findings and plan of care. Lung sounds are positive for diffuse wheezes throughout the lung limon. The findings and the impression was discussed with the patient. I attest to the documentation by the nurse practitioner. Time with Patient: Less than 30
--- NOTE | 2018-08-27 15:33 | P.PN ---
Subjective 68-year-old male with a known history of COPD on home oxygen, chronic hypoxic respiratory failure, use oxygen at night, hypertension, hyperlipidemia came to ER with complaints of shortness of breath and hypoxia. Patient does have history o of COPD and follows with Dr. Quarles as an outpatient. Patient has been having progressive shortness of breath for the past 2 weeks. Patient felt lightheaded and weak this morning. His pulse ox dropped down to 66% with oxygen. Patient does have cough but no recent change in quantity of frequency. No fever no chills. Denied any chest pain. Chest x-ray showed no acute cardiopulmonary process EKG showed normal sinus rhythm. BNP 390, bicarb 35 Random blood sugar 247 08/24/2018 sitting up at bedside, no acute distress. Maintaining O2 sats in the low 90s on 3 L nasal cannula in a patient whose baseline is 2 L nasal cannula at rest. Reports occasional productive cough with thick white/pale yellow Secretions. INR 2, anticoagulated on Coumadin. Potential bronchoscopy discussed yesterday as per pulmonary. Afebrile. Denies chest pain, palpitations or increased shortness of breath. 08/25/2018 Maintained on nebulized bronchodilators, IV steroids, azithromycin .continue slow progress with no bronchoscopy planned at this time as per pulmonary. Maintaining O2 sats in the low to mid 90s on 3 L nasal cannula. Mild tachycardia. Bicarb 42. Afebrile, WBC 17.4, blood cultures report no growth. INR 1.5. 08/26/2018 continues to improve on nebulized dilators, steroids, antibiotics. 08/27/2018 Patient has significant expiratory wheezing on exam. We'll continue with systemic steroids inhalational treatments. Continues to complain of significant shortness of breath Constitutional: Denied any fatigue denied any fever. Cardio vascular: denied any chest pain, palpitations Gastrointestinal denied any nausea vomiting Pulmonary: As mentioned in HPI Neurologic denied any new focal deficits All inpatient medications were reviewed and appropriate changes in these medications as dictated in the interval history and assessment and plan. Objective - Vital Signs Vital signs: Vital Signs Temp 97.6 F 08/27/18 14:35 Pulse 106 H 08/27/18 14:35 Resp 18 08/27/18 14:35 BP 131/72 08/27/18 14:35 Pulse Ox 90 L 08/27/18 14:35 Intake & Output 11/08/27/18 08/27/18 18:59 06:59 18:59 Intake Total 600 400 400 Balance 600 400 400 Weight 92.9 kg Intake: Oral 600 400 400 Other: Voiding Method Toilet Toilet Toilet # Voids 2 1 2 - Exam Patient is sitting up at side of the bed comfortably, no acute distress, awake alert and oriented. HEENT: Normocephalic. Neck is supple. Pupils reactive. Nostrils clear. Oral cavity is moist. Neck reveals no JVD, carotid bruits, or thyromegaly. CHEST EXAMINATION: Diminished air entry with Few scattered rhonchi, Bilateral diffuse expiratory wheezing. CARDIAC: Normal S1, S2 with no gallops. No murmurs ABDOMEN: Soft. Bowel sounds normal. No organomegaly. No abdominal bruits. Extremities: reveal no edema. No clubbing or cyanosis Neurologically awake, alert, oriented x3 with well-coordinated movements. No focal deficits noted - Labs CBC & Chem 7: 08/26/18 09:04 08/27/18 09:35 Labs: Abnormal Lab Results - Last 24 Hours (Table) 08/26/18 08/26/18 08/27/18 Range/Units 17:12 21:03 06:57 PT (9.0-12.0) sec INR (<1.2) Chloride (98-107) mmol/L Carbon Dioxide (22-30) mmol/L BUN (9-20) mg/dL Glucose (74-99) mg/dL POC Glucose (mg/dL) 135 H 186 H 107 H (75-99) mg/dL 08/27/18 08/27/18 08/27/18 Range/Units 09:35 09:35 11:49 PT 19.6 H (9.0-12.0) sec INR 2.2 H (<1.2) Chloride 92 L (98-107) mmol/L Carbon Dioxide 43 H* (22-30) mmol/L BUN 38 H (9-20) mg/dL Glucose 212 H (74-99) mg/dL POC Glucose (mg/dL) 135 H (75-99) mg/dL Microbiology - Last 24 Hours (Table) 08/21/18 12:02 Blood Culture - Final Blood No Growth after 144 hours Assessment and Plan Plan: Acute on chronic hypoxic respiratory failure secondary to COPD: Continue with systemic steroids and initial treatments. Rocephin will be discontinued Acute COPD exacerbation Acute tracheobronchitis Paroxysmal atrial fibrillation on anticoagulation at home with warfarin. INR is presently therapeutic we'll repeat INR tomorrow again Hypertension Hyperlipidemia Osteoarthritis Chronic CHF with ejection fraction unknown Nicotine addiction
[2018-08-27 16:52] LABS: Glucose,Whole Blood 123 mg/dL (75-99)
[2018-08-27] MEDS ORDERED: WARFARIN 7.5 MG TAB PO ONE (18:00)
[2018-08-27] MEDS: ATORVASTATIN 20 MG TAB PO SCH (20:03)
[2018-08-27] MEDS: LATANOPROST 0.005% OPHTH DROPS 2.5 ML BTL BOTH EYES SCH (20:04)
[2018-08-27 20:29] LABS: Glucose,Whole Blood 165 mg/dL (75-99)
[2018-08-28] MEDS: methylPREDNISolone SOD SUCCI 125 MG/2 ML VIAL IV SCH ×4 (06:02→23:42)
[2018-08-28] MEDS: IPRATROPIUM-ALBUTEROL 3 ML NEB INHALATION SCH ×4 (07:22→19:36)
[2018-08-28] MEDS: SYMBICORT 160-4.5 MCG INHALER INHALATION SCH ×2 (07:22→19:36)
[2018-08-28 07:23] LABS: Glucose,Whole Blood 107 mg/dL (75-99)
[2018-08-28] MEDS: INSULIN ASPART 100 UNIT/ML 1 ML 10 ML VIAL SQ SCH ×4 (07:33→21:35)
[2018-08-28 07:53] LABS: INR 2.8 (<1.2); Prothrombin Time 24.7 sec (9.0-12.0)
[2018-08-28] MEDS: FUROSEMIDE 20 MG TAB PO SCH (08:16)
[2018-08-28] MEDS: AZITHROMYCIN 500 MG TAB PO SCH (08:16)
[2018-08-28] MEDS: LISINOPRIL 5 MG TAB PO SCH (08:16)
[2018-08-28 10:46] VITALS: BMI 30.4
[2018-08-28 12:39] LABS: Glucose,Whole Blood 107 mg/dL (75-99)
--- NOTE | 2018-08-28 14:31 | P.PN ---
Subjective Progress Note Date: 08/28/18 Principal diagnosis: Shortness of breath, related to acute COPD exacerbation. Progress note dated 08/23/2018 This is a 68-year-old male well-known to our service. He is admitted with a diagnosis of COPD exacerbation, acute on chronic hypoxemic respiratory failure, hyperlipidemia, ongoing tobacco use atrial fibrillation and heart failure benign essential hypertension DJD pneumonia and glaucoma. The patient is feeling a bit better today than yesterday. Still very short of breath. Lots of cough wheezing and chest tightness. 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 Quarles. The patient unfortunately continues to smoke. He states that he smokes about a half a pack a day. His confirms that. He denies any chest pain or chest discomfort. No palpitations. No nausea vomiting diarrhea. No fever or chills. Chest x-ray only showed evidence of COPD. On 08/24/2018 patient seen in follow-up on medical surgical floor. He states he is about 30-40% improved, since admission. His lung sounds are still tight and wheezy, diminished. Pulse ox on 3 L per nasal cannula was 93%, he is afebrile, with culture remains negative. He continues on empiric antibiotics in the form of Zithromax and Rocephin, he is on nebulized bronchodilators, he is on oral Lasix, and IV steroids, and he is improving. On 08/27/2018 patient seen in follow-up on medical surgical floor. Improving, although there is some still residual wheezing and dyspnea with exertion. Remains on 2 L per nasal cannula, his pulse ox is 97%, afebrile, hemodynamically stable. Remains on Rocephin, and Zithromax, nebulized bronchodilators, Symbicort. Blood cultures are negative. Patient is afebrile. WBC is 13.3, hemoglobin is 13.0, sodium is 138, potassium is 5.2, chloride is 92, CO2 is 43, B1 is 38 and creatinine 0.92. On 08/28/2018 patient seen in follow-up on medical surgical floor. He is improving however he was noted to be very hypoxemic during ambulation, and his oxygen demand increases to 8 L with ambulation. Lung sounds are diminished, with minimal wheezing, overall less bronchospastic compared to admission. Has been treated with the empiric antibiotics in the form of Rocephin and Zithromax , IV steroids, nebulized bronchodilators, and Symbicort. No new chest x-rays today, INR is up to 2.8. NO significant cough or chest congestion. No fever or chills. From pulmonary perspective patient will probably need another 24 hours of inpatient treatment, as been slow to recover, although he seems to have improved. Objective - Vital Signs Vital signs: Vital Signs Temp 98.6 F 08/28/18 14:07 Pulse 105 H 08/28/18 14:07 Resp 18 08/28/18 14:07 BP 126/74 08/28/18 14:07 Pulse Ox 92 L 08/28/18 14:07 Intake & Output 08/27/18 08/28/18 08/28/18 18:59 06:59 18:59 Intake Total 1400 Balance 1400 Weight 93.4 kg 93.4 kg Intake: Oral 1400 Other: Voiding Method Toilet # Voids 2 3 1 - Exam No acute distress, oriented 3. Nasal O2 in place. No audible wheezing. No use of accessory muscles. HEENT examination is grossly unremarkable. Mucous membranes are moist. No oral lesions. Neck supple. Full range of motion. No adenopathy thyromegaly or neck vein distention. Cardiovascular examination reveals regular rhythm rate. S1-S2 normal. No S3 or S4. No discernible murmur noted. Lungs reveal diffuse inspiratory and expiratory wheezes. Breath sounds are diminished. There is prolongation on forced maneuver. Adventitious lung sounds are more prominent on forced maneuver. No crackles. Breath sounds equal bilaterally. Abdomen soft bowel sounds are heard. No masses or tenderness. Extremities are intact. No cyanosis clubbing or edema. Skin is without rash or lesion. Neurologic examination is brief but nonfocal. - Labs CBC & Chem 7: 08/26/18 09:04 08/27/18 09:35 Labs: Abnormal Lab Results - Last 24 Hours (Table) 08/27/18 08/27/18 08/28/18 Range/Units 16:49 20:27 07:06 PT (9.0-12.0) sec INR (<1.2) POC Glucose (mg/dL) 123 H 165 H 107 H (75-99) mg/dL 08/28/18 08/28/18 Range/Units 07:26 12:26 PT 24.7 H (9.0-12.0) sec INR 2.8 H (<1.2) POC Glucose (mg/dL) 107 H (75-99) mg/dL Microbiology - Last 24 Hours (Table) 08/21/18 12:02 Blood Culture - Final Blood No Growth after 144 hours Assessment and Plan Plan: COPD exacerbation, possibly complicated by mild tracheobronchitis Acute on chronic hypoxemic respiratory failure History of hyperlipidemia History of ongoing tobacco use with nicotine addiction History of atrial fibrillation History of heart failure. History of benign essential hypertension History of DJD History of pneumonia History of glaucoma Plan: Continue with current medical treatment, IV steroids, antibiotics, and nebulized bronchodilators. Patient is slow to recover, although he has shown some improvement. He is noted to be very hypoxemic with ambulation, and at rest , he is requiring oxygen around the clock. Will need another 24 hours of inpatient treatment. I performed a history & physical examination of the patient and discussed their management with my nurse practitioner, Chasity Wheeler. I reviewed the nurse practitioner's note and agree with the documented findings and plan of care. Lung sounds are positive for diminished breath sounds. The findings and the impression was discussed with the patient. I attest to the documentation by the nurse practitioner. Time with Patient: Less than 30
--- NOTE | 2018-08-28 14:49 | CT ---
EXAMINATION TYPE: CT chest angio for PE DATE OF EXAM: CT chest 09/23/2013 COMPARISON: None HISTORY: Dyspnea, hypoxemia CT DLP: 555 mGycm CONTRAST: CT chest with contrast and 3D reconstruction with MIP imaging is performed with IV Contrast, patient injected with 100, wasted 26 mL of Isovue 370. Contrast-enhanced CT of the chest was performed through the course of the pulmonary arteries with zane g and mediastinal window settings submitted. 3D reconstruction with MIP imaging was also performed. PULMONARY ARTERIES: The pulmonary arteries and their major tributaries are patent. I do not see nancy dence for sizable filling defect to suggest pulmonary embolic process. LUNGS: The lungs are clear and free of infiltrate. No evidence for atelectasis. No pulmonary nodule or mass is detected. No pleural effusion. MEDIASTINUM: Thoracic aorta is of normal caliber,however, evaluation is limited given timing of the contrast bolus. If there is concern for thoracic aortic pathology consider BRYAN. Correlate clinicall y . The heart is not enlarged. No evidence for mediastinal mass. No mediastinal lymph nodes greater than 1cm. HILAR STRUCTURES: No evidence for mass. No hilar lymph nodes greater than 1 cm. UPPER ABDOMEN: No significant abnormality is seen. IMPRESSION: 1. No evidence for Pulmonary embolism at this time.
[2018-08-28 17:33] LABS: Glucose,Whole Blood 137 mg/dL (75-99)
[2018-08-28] MEDS ORDERED: WARFARIN 5 MG TAB PO ONE (18:00)
--- NOTE | 2018-08-28 18:08 | P.PN ---
Subjective Progress Note Date: 08/28/18 68-year-old male with a known history of COPD on home oxygen, chronic hypoxic respiratory failure, use oxygen at night, hypertension, hyperlipidemia came to ER with complaints of shortness of breath and hypoxia. Patient does have history o of COPD and follows with Dr. Quarles as an outpatient. Patient has been having progressive shortness of breath for the past 2 weeks. Patient felt lightheaded and weak this morning. His pulse ox dropped down to 66% with oxygen. Patient does have cough but no recent change in quantity of frequency. No fever no chills. Denied any chest pain. Chest x-ray showed no acute cardiopulmonary process EKG showed normal sinus rhythm. BNP 390, bicarb 35 Random blood sugar 247 08/28/2018 patient seen in follow-up on medical surgical floor. He is improving however he was noted to be very hypoxemic during ambulation, and his oxygen demand increases to 8 L with ambulation. Lung sounds are diminished, with minimal wheezing, overall less bronchospastic compared to admission. Has been treated with the empiric antibiotics in the form of Rocephin and Zithromax, IV steroids , nebulized bronchodilators, and Symbicort. No new chest x-rays today, INR is up to 2.8. NO significant cough or chest congestion. No fever or chills. From pulmonary perspective patient will probably need another 24 hours of inpatient treatment, as been slow to recover, although he seems to have improved. Constitutional: Denied any fatigue denied any fever. Cardio vascular: denied any chest pain, palpitations Gastrointestinal denied any nausea vomiting Pulmonary: As mentioned in HPI Neurologic denied any new focal deficits All inpatient medications were reviewed and appropriate changes in these medications as dictated in the interval history and assessment and plan. Objective - Vital Signs Vital signs: Vital Signs Temp 97.6 F 08/28/18 08:24 Pulse 92 08/28/18 11:32 Resp 18 08/28/18 08:24 BP 124/67 08/28/18 08:24 Pulse Ox 90 L 08/28/18 08:24 Intake & Output 08/27/18 08/28/18 08/28/18 18:59 06:59 18:59 Intake Total 1400 Balance 1400 Weight 93.4 kg 93.4 kg Intake: Oral 1400 Other: Voiding Method Toilet # Voids 2 3 1 - Exam No acute distress, oriented 3. Nasal O2 in place. No audible wheezing. No use of accessory muscles. HEENT examination is grossly unremarkable. Mucous membranes are moist. No oral lesions. Neck supple. Full range of motion. No adenopathy thyromegaly or neck vein distention. Cardiovascular examination reveals regular rhythm rate. S1-S2 normal. No S3 or S4. No discernible murmur noted. Lungs reveal diffuse inspiratory and expiratory wheezes. Breath sounds are diminished. There is prolongation on forced maneuver. Adventitious lung sounds are more prominent on forced maneuver. No crackles. Breath sounds equal bilaterally. Abdomen soft bowel sounds are heard. No masses or tenderness. Extremities are intact. No cyanosis clubbing or edema. Skin is without rash or lesion. Neurologic examination is brief but nonfocal. - Labs CBC & Chem 7: 08/26/18 09:04 08/27/18 09:35 Labs: Abnormal Lab Results - Last 24 Hours (Table) 08/27/18 08/27/18 08/28/18 Range/Units 16:49 20:27 07:06 PT (9.0-12.0) sec INR (<1.2) POC Glucose (mg/dL) 123 H 165 H 107 H (75-99) mg/dL 08/28/18 08/28/18 Range/Units 07:26 12:26 PT 24.7 H (9.0-12.0) sec INR 2.8 H (<1.2) POC Glucose (mg/dL) 107 H (75-99) mg/dL Microbiology - Last 24 Hours (Table) 08/21/18 12:02 Blood Culture - Final Blood No Growth after 144 hours Assessment and Plan Assessment: Plan: Acute on chronic hypoxic respiratory failure secondary to COPD: Continue with systemic steroids and initial treatments. Rocephin will be discontinued Acute COPD exacerbation Acute tracheobronchitis Paroxysmal atrial fibrillation on anticoagulation at home with warfarin. INR is presently therapeutic we'll repeat INR tomorrow again Hypertension Hyperlipidemia Osteoarthritis Chronic CHF with ejection fraction unknown Nicotine addiction DVT prophylaxis; SCDs/subcu heparin CODE STATUS; full code Time with Patient: Greater than 30
[2018-08-28] MEDS: ATORVASTATIN 20 MG TAB PO SCH (20:56)
[2018-08-28] MEDS: LATANOPROST 0.005% OPHTH DROPS 2.5 ML BTL BOTH EYES SCH (20:57)
[2018-08-28 21:21] LABS: Glucose,Whole Blood 170 mg/dL (75-99)
[2018-08-29] MEDS: methylPREDNISolone SOD SUCCI 125 MG/2 ML VIAL IV SCH ×4 (05:35→23:23)
[2018-08-29 07:04] LABS: Glucose,Whole Blood 143 mg/dL (75-99)
[2018-08-29] MEDS: IPRATROPIUM-ALBUTEROL 3 ML NEB INHALATION SCH ×4 (07:39→19:30)
[2018-08-29] MEDS: SYMBICORT 160-4.5 MCG INHALER INHALATION SCH ×2 (07:40→19:30)
[2018-08-29] MEDS: LISINOPRIL 5 MG TAB PO SCH (08:10)
[2018-08-29] MEDS: AZITHROMYCIN 500 MG TAB PO SCH (08:10)
[2018-08-29] MEDS: FUROSEMIDE 20 MG TAB PO SCH (08:11)
[2018-08-29] MEDS: INSULIN ASPART 100 UNIT/ML 1 ML 10 ML VIAL SQ SCH ×4 (08:11→21:12)
[2018-08-29 10:33] LABS: Basophils % (A) 0 %; Eosinophils % (A) 0 %; HCT 43.6 % (39.0-53.0); HGB 13.5 gm/dL (13.0-17.5); Hypochromasia Moderate; Lymphocytes # (A) 0.6 k/uL (1.0-4.8); Lymphocytes % (A) 3 %; MCH 29.7 pg (25.0-35.0); MCHC 30.9 g/dL (31.0-37.0); MCV 96.4 fL (80.0-100.0); Mean Platelet Volume 7.1; Monocytes % (A) 5 %; Neutrophils # (A) 18.2 k/uL (1.3-7.7); Neutrophils % (A) 91 %; Platelet Count 288 k/uL (150-450); RBC 4.52 m/uL (4.30-5.90)
[2018-08-29 10:42] LABS: INR 2.8 (<1.2); Prothrombin Time 25.1 sec (9.0-12.0)
[2018-08-29 10:44] LABS: Blood Urea Nitrogen 36 mg/dL (9-20); Calcium 8.7 mg/dL (8.4-10.2); Chloride 87 mmol/L (98-107); Glucose 152 mg/dL (74-99); Sodium 136 mmol/L (137-145)
[2018-08-29 10:51] LABS: Anion Gap 7 mmol/L
[2018-08-29 11:05] LABS: Carbon Dioxide 42 mmol/L (22-30)
[2018-08-29 12:47] LABS: Glucose,Whole Blood 113 mg/dL (75-99)
[2018-08-29] MEDS ORDERED: SODIUM CHLORIDE 0.9% 1,000 ML IV ONE (15:39)
[2018-08-29] MEDS ORDERED: MD COMMUNICATION TO PHARMACY 1 EACH MISC PO PRN (15:40)
--- NOTE | 2018-08-29 15:47 | P.PN ---
Subjective Progress Note Date: 08/29/18 Principal diagnosis: Acute exacerbation of chronic obstructive pulmonary Progress note dated 08/23/2018 This is a 68-year-old male well-known to our service. He is admitted with a diagnosis of COPD exacerbation, acute on chronic hypoxemic respiratory failure, hyperlipidemia, ongoing tobacco use atrial fibrillation and heart failure benign essential hypertension DJD pneumonia and glaucoma. The patient is feeling a bit better today than yesterday. Still very short of breath. Lots of cough wheezing and chest tightness. 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 Quarles. The patient unfortunately continues to smoke. He states that he smokes about a half a pack a day. His confirms that. He denies any chest pain or chest discomfort. No palpitations. No nausea vomiting diarrhea. No fever or chills. Chest x-ray only showed evidence of COPD. On 08/24/2018 patient seen in follow-up on medical surgical floor. He states he is about 30-40% improved, since admission. His lung sounds are still tight and wheezy, diminished. Pulse ox on 3 L per nasal cannula was 93%, he is afebrile, with culture remains negative. He continues on empiric antibiotics in the form of Zithromax and Rocephin, he is on nebulized bronchodilators, he is on oral Lasix, and IV steroids, and he is improving. Patient is seen today 08/25/2018 in follow-up on the regular medical floor. He is awake and alert in no acute distress. He has been quite slow to progress. He is still quite bronchospastic and wheezy. Still not back to his baseline. Blood culture reveals no growth. He is currently afebrile. Maintaining O2 saturations in the 90s on 3 L/m per nasal cannula. White count 17.4. Hemoglobin 12.7. INR 1.5. Bicarb 42. Creatinine 0.88. Remains on DuoNeb inhalations, Symbicort, IV Solu-Medrol. He is empirically on azithromycin. The patient is seen again today 08/26/2018 in follow-up on the regular medical floor. He is slightly better today but not quite back to his baseline. He still somewhat bronchospastic and wheezy. Still dyspneic on minimal exertion. He's been slow to progress. He remains on DuoNeb, Symbicort, IV Solu-Medrol. Continued on ceftriaxone and azithromycin. Blood culture reveals no growth. White count 13.3. Hemoglobin 13.0. INR 1.8. Creatinine 0.96. Bicarb 40. A blood gases on 32% FiO2 revealed a PaO2 of 55, pCO2 73, pH 7.36. On 08/27/2018 patient seen in follow-up on medical surgical floor. Improving, although there is some still residual wheezing and dyspnea with exertion. Remains on 2 L per nasal cannula, his pulse ox is 97%, afebrile, hemodynamically stable. Remains on Rocephin, and Zithromax, nebulized bronchodilators, Symbicort. Blood cultures are negative. Patient is afebrile. WBC is 13.3, hemoglobin is 13.0, sodium is 138, potassium is 5.2, chloride is 92, CO2 is 43, B1 is 38 and creatinine 0.92. On 08/28/2018 patient seen in follow-up on medical surgical floor. He is improving however he was noted to be very hypoxemic during ambulation, and his oxygen demand increases to 8 L with ambulation. Lung sounds are diminished, with minimal wheezing, overall less bronchospastic compared to admission. Has been treated with the empiric antibiotics in the form of Rocephin and Zithromax , IV steroids, nebulized bronchodilators, and Symbicort. No new chest x-rays today, INR is up to 2.8. NO significant cough or chest congestion. No fever or chills. From pulmonary perspective patient will probably need another 24 hours of inpatient treatment, as been slow to recover, although he seems to have improved. The patient is seen again today 08/29/2018 in follow-up on the regular medical floor. He is currently resting quite comfortably in bed. He is awake and alert in no acute distress. He is nearly back to his baseline. He is down to 3 L/m per nasal cannula to maintain O2 saturations in the 90s. Patient is still dyspneic on minimal exertion. Currently afebrile. Blood culture reveals no growth. White count 20.0. Hemoglobin 13.5. INR 2.8. Bicarb 42. Creatinine 0.86. Objective - Vital Signs Vital signs: Vital Signs Temp 98.2 F 08/29/18 15:00 Pulse 112 H 11/17/18 15:35 Resp 20 08/29/18 15:35 BP 111/53 08/29/18 15:00 Pulse Ox 91 L 08/29/18 15:35 Intake & Output 08/28/18 08/29/18 08/29/18 18:59 06:59 18:59 Intake Total 100 Balance 100 Weight 93.4 kg 93.5 kg Intake: Oral 100 Other: Voiding Method Toilet # Voids 1 1 3 - Exam GENERAL EXAM: Alert, active, comfortable in no apparent distress. HEAD: Normocephalic. EYES: Normal reaction of pupils, equal size. NOSE: Clear with pink turbinates. THROAT: No erythema or exudates. NECK: No masses, no JVD. CHEST: No chest wall deformity. LUNGS: Equal air entry with bilateral end expiratory wheeze, diminished CVS: S1 and S2 normal with no audible murmur, regular rhythm. ABDOMEN: No hepatosplenomegaly, normal bowel sounds, no guarding or rigidity. SPINE: No scoliosis or deformity SKIN: No rashes CENTRAL NERVOUS SYSTEM: No focal deficits, tone is normal in all 4 extremities. EXTREMITIES: There is no peripheral edema. No clubbing, no cyanosis. Peripheral pulses are intact. - Labs CBC & Chem 7: 08/29/18 09:35 08/29/18 09:35 Labs: Abnormal Lab Results - Last 24 Hours (Table) 08/28/18 08/28/18 08/29/18 Range/Units 17:14 21:17 06:59 WBC (3.8-10.6) k/uL MCHC (31.0-37.0) g/dL Neutrophils # (1.3-7.7) k/uL Lymphocytes # (1.0-4.8) k/uL PT (9.0-12.0) sec INR (<1.2) Sodium (137-145) mmol/L Chloride (98-107) mmol/L Carbon Dioxide (22-30) mmol/L BUN (9-20) mg/dL Glucose (74-99) mg/dL POC Glucose (mg/dL) 137 H 170 H 143 H (75-99) mg/dL Plasma Lactic Acid Jesus (0.7-2.0) mmol/L 08/29/18 08/29/18 08/29/18 Range/Units 09:35 09:35 09:35 WBC 20.0 H (3.8-10.6) k/uL MCHC 30.9 L (31.0-37.0) g/dL Neutrophils # 18.2 H (1.3-7.7) k/uL Lymphocytes # 0.6 L (1.0-4.8) k/uL PT 25.1 H (9.0-12.0) sec INR 2.8 H (<1.2) Sodium 136 L (137-145) mmol/L Chloride 87 L (98-107) mmol/L Carbon Dioxide 42 H* (22-30) mmol/L BUN 36 H (9-20) mg/dL Glucose 152 H (74-99) mg/dL POC Glucose (mg/dL) (75-99) mg/dL Plasma Lactic Acid Jesus (0.7-2.0) mmol/L 08/29/18 08/29/18 Range/Units 12:44 14:30 WBC (3.8-10.6) k/uL MCHC (31.0-37.0) g/dL Neutrophils # (1.3-7.7) k/uL Lymphocytes # (1.0-4.8) k/uL PT (9.0-12.0) sec INR (<1.2) Sodium (137-145) mmol/L Chloride (98-107) mmol/L Carbon Dioxide (22-30) mmol/L BUN (9-20) mg/dL Glucose (74-99) mg/dL POC Glucose (mg/dL) 113 H (75-99) mg/dL Plasma Lactic Acid Jesus 2.5 H* (0.7-2.0) mmol/L Assessment and Plan Assessment: Impression: #1 Acute on chronic hypoxemic respiratory failure secondary to an acute exacerbation of COPD. #2 Acute exacerbation of chronic obstructive pulmonary disease complicated by mild tracheobronchitis. #3 Hyperlipidemia. #4 Chronic and ongoing tobacco dependence. #5 Atrial fibrillation. #6 History of congestive heart failure. #7 Hypertension. #8 History of DJD. #9 History of previous pneumonias. #10 History of glaucoma. Plan: The patient was seen and evaluated by Dr. Quarles. Patient is cleared for discharge from the pulmonary standpoint. He'll complete a course of antibiotics. Complete prednisone taper. Continue his pulmonary medications. He is nearly back to his baseline. He does have home oxygen that he wears mostly at night and he is secured encouraged to use it during the day. He also has a home pulse oximeter. He'll maintain his O2 saturations greater than 88%. He'll follow-up in our office in 1-2 weeks' time. He is however encouraged to call sooner with any questions or concerns. I, the cosigning physician, performed a history & physical examination of the patient. Lungs sounds with bilateral end expiratory wheeze. Diminished.. Maintaining good O2 saturations in the 90s on 3 L/m per nasal cannula. I discussed the assessment and plan of care with my nurse practitioner, Kaycee Yoo. I attest to the above note as dictated by her.
[2018-08-29 17:39] LABS: Glucose,Whole Blood 133 mg/dL (75-99)
[2018-08-29] MEDS ORDERED: WARFARIN 5 MG TAB PO ONE (18:00)
[2018-08-29] MEDS: PIPERACILLIN-TAZOBACTAM 3.375 GM in SODIUM CHLORIDE 0.9% 100 ML IVPB SCH ×2 (18:13→23:23)
[2018-08-29] MEDS: SODIUM CHLORIDE 0.9% 1,000 ML IV SCH ×2 (18:54→23:30)
[2018-08-29 20:37] LABS: Glucose,Whole Blood 133 mg/dL (75-99)
[2018-08-29] MEDS: LATANOPROST 0.005% OPHTH DROPS 2.5 ML BTL BOTH EYES SCH (21:13)
[2018-08-29] MEDS: ATORVASTATIN 20 MG TAB PO SCH (21:13)
[2018-08-30 04:35] LABS: Appearance,Urine Clear (Clear); Bilirubin,Urine Negative (Negative); Blood,Urine Negative (Negative); Color,Urine Yellow; Glucose,Urine (UA) Negative (Negative); Ketones,Urine Negative (Negative); Leukocyte Esterase,Urine Negative (Negative); Nitrite,Urine Negative (Negative); Protein,Urine Trace (Negative); Specific Gravity,Urine 1.027 (1.001-1.035); Urobilinogen,Urine <2.0 mg/dL (<2.0)
[2018-08-30] MEDS: methylPREDNISolone SOD SUCCI 125 MG/2 ML VIAL IV SCH ×3 (06:07→17:58)
[2018-08-30] MEDS: SYMBICORT 160-4.5 MCG INHALER INHALATION SCH ×2 (07:13→19:49)
[2018-08-30] MEDS: IPRATROPIUM-ALBUTEROL 3 ML NEB INHALATION SCH ×4 (07:14→19:49)
[2018-08-30 07:38] LABS: Glucose,Whole Blood 114 mg/dL (75-99)
[2018-08-30] MEDS: INSULIN ASPART 100 UNIT/ML 1 ML 10 ML VIAL SQ SCH ×4 (08:02→21:33)
[2018-08-30] MEDS: FUROSEMIDE 20 MG TAB PO SCH (08:05)
[2018-08-30] MEDS: AZITHROMYCIN 500 MG TAB PO SCH (08:05)
[2018-08-30] MEDS: LISINOPRIL 5 MG TAB PO SCH (08:05)
[2018-08-30 08:45] LABS: Basophils % (A) 0 %; Eosinophils % (A) 0 %; HGB 12.8 gm/dL (13.0-17.5); Hypochromasia Moderate; Lymphocytes # (A) 0.7 k/uL (1.0-4.8); Lymphocytes % (A) 4 %; MCH 29.4 pg (25.0-35.0); MCHC 30.5 g/dL (31.0-37.0); MCV 96.3 fL (80.0-100.0); Mean Platelet Volume 6.9; Monocytes # (A) 1.1 k/uL (0-1.0); Monocytes % (A) 5 %; Neutrophils # (A) 18.4 k/uL (1.3-7.7); Neutrophils % (A) 90 %; Platelet Count 282 k/uL (150-450); RBC 4.36 m/uL (4.30-5.90); WBC 20.5 k/uL (3.8-10.6)
[2018-08-30 08:50] LABS: INR 3.2 (<1.2); Prothrombin Time 28.6 sec (9.0-12.0)
[2018-08-30] MEDS: PIPERACILLIN-TAZOBACTAM 3.375 GM in SODIUM CHLORIDE 0.9% 100 ML IVPB SCH ×2 (08:52→15:36)
[2018-08-30 09:07] LABS: Anion Gap 3 mmol/L; Blood Urea Nitrogen 32 mg/dL (9-20); Calcium 8.1 mg/dL (8.4-10.2); Carbon Dioxide 40 mmol/L (22-30); Chloride 93 mmol/L (98-107); Glucose 126 mg/dL (74-99); Potassium 4.8 mmol/L (3.5-5.1); Sodium 136 mmol/L (137-145)
--- NOTE | 2018-08-30 11:42 | P.PN ---
Subjective Progress Note Date: 08/30/18 Principal diagnosis: Shortness of breath, related to acute COPD exacerbation. Progress note dated 08/23/2018 This is a 68-year-old male well-known to our service. He is admitted with a diagnosis of COPD exacerbation, acute on chronic hypoxemic respiratory failure, hyperlipidemia, ongoing tobacco use atrial fibrillation and heart failure benign essential hypertension DJD pneumonia and glaucoma. The patient is feeling a bit better today than yesterday. Still very short of breath. Lots of cough wheezing and chest tightness. His associate professor of literature is my partner Dr. Quarles. The patient unfortunately continues to smoke. He states that he smokes about a half a pack a day. His confirms that. He denies any chest pain or chest discomfort. No palpitations. No nausea vomiting diarrhea. No fever or chills. Chest x-ray only showed evidence of COPD. On 08/24/2018 patient seen in follow-up on medical surgical floor. He states he is about 30-40% improved, since admission. His lung sounds are still tight and wheezy, diminished. Pulse ox on 3 L per nasal cannula was 93%, he is afebrile, with culture remains negative. He continues on empiric antibiotics in the form of Zithromax and Rocephin, he is on nebulized bronchodilators, he is on oral Lasix, and IV steroids, and he is improving. On 08/27/2018 patient seen in follow-up on medical surgical floor. Improving, although there is some still residual wheezing and dyspnea with exertion. Remains on 2 L per nasal cannula, his pulse ox is 97%, afebrile, hemodynamically stable. Remains on Rocephin, and Zithromax, nebulized bronchodilators, Symbicort. Blood cultures are negative. Patient is afebrile. WBC is 13.3, hemoglobin is 13.0, sodium is 138, potassium is 5.2, chloride is 92, CO2 is 43, B1 is 38 and creatinine 0.92. On 08/28/2018 patient seen in follow-up on medical surgical floor. He is improving however he was noted to be very hypoxemic during ambulation, and his oxygen demand increases to 8 L with ambulation. Lung sounds are diminished, with minimal wheezing, overall less bronchospastic compared to admission. Has been treated with the empiric antibiotics in the form of Rocephin and Zithromax , IV steroids, nebulized bronchodilators, and Symbicort. No new chest x-rays today, INR is up to 2.8. NO significant cough or chest congestion. No fever or chills. From pulmonary perspective patient will probably need another 24 hours of inpatient treatment, as been slow to recover, although he seems to have improved. On 08/30/2018 patient seen in follow-up on medical surgical floor, in no acute distress, lung sounds are essentially clear, no rhonchi, no wheezing noted on today's exam, he has been ambulating in the room, to the bathroom, on room air, in no acute distress. He is pretty much back to his baseline, no fever or chills, labs have been reviewed, WBC is 20.5, hemoglobin is 12.8, INR is 3.2, sodium is 136, chloride is 93, CO2 is 40, B1 is 32, creatinine 0.91. Urinalysis is negative. No fever, no chills. No specific complaints or acute events overnight, from pulmonary perspective patient is cleared for discharge home today Objective - Vital Signs Vital signs: Vital Signs Temp 97 F L 08/30/18 06:11 Pulse 96 08/30/18 11:13 Resp 20 08/30/18 06:11 BP 137/79 08/30/18 06:11 Pulse Ox 94 L 08/30/18 06:30 Intake & Output 08/29/18 08/30/18 08/30/18 18:59 06:59 18:59 Intake Total 300 Balance 300 Weight 94.801 kg Intake: Oral 300 Other: Voiding Method Toilet # Voids 3 1 - Exam No acute distress, oriented 3. Nasal O2 in place. No audible wheezing. No use of accessory muscles. HEENT examination is grossly unremarkable. Mucous membranes are moist. No oral lesions. Neck supple. Full range of motion. No adenopathy thyromegaly or neck vein distention. Cardiovascular examination reveals regular rhythm rate. S1-S2 normal. No S3 or S4. No discernible murmur noted. Lungs reveal diffuse inspiratory and expiratory wheezes. Breath sounds are diminished , no rhonchi, no wheezes Abdomen soft bowel sounds are heard. No masses or tenderness. Extremities are intact. No cyanosis clubbing or edema. Skin is without rash or lesion. Neurologic examination is brief but nonfocal. - Labs CBC & Chem 7: 08/30/18 08:25 08/30/18 08:25 Labs: Abnormal Lab Results - Last 24 Hours (Table) 08/29/18 08/29/18 08/29/18 Range/Units 12:44 14:30 17:34 WBC (3.8-10.6) k/uL Hgb (13.0-17.5) gm/dL MCHC (31.0-37.0) g/dL Neutrophils # (1.3-7.7) k/uL Lymphocytes # (1.0-4.8) k/uL Monocytes # (0-1.0) k/uL PT (9.0-12.0) sec INR (<1.2) Sodium (137-145) mmol/L Chloride (98-107) mmol/L Carbon Dioxide (22-30) mmol/L BUN (9-20) mg/dL Glucose (74-99) mg/dL POC Glucose (mg/dL) 113 H 133 H (75-99) mg/dL Plasma Lactic Acid Jesus 2.5 H* (0.7-2.0) mmol/L Calcium (8.4-10.2) mg/dL Urine Protein (Negative) 08/29/18 08/29/18 08/30/18 Range/Units 18:26 20:28 04:00 WBC (3.8-10.6) k/uL Hgb (13.0-17.5) gm/dL MCHC (31.0-37.0) g/dL Neutrophils # (1.3-7.7) k/uL Lymphocytes # (1.0-4.8) k/uL Monocytes # (0-1.0) k/uL PT (9.0-12.0) sec INR (<1.2) Sodium (137-145) mmol/L Chloride (98-107) mmol/L Carbon Dioxide (22-30) mmol/L BUN (9-20) mg/dL Glucose (74-99) mg/dL POC Glucose (mg/dL) 133 H (75-99) mg/dL Plasma Lactic Acid Jesus 3.2 H* (0.7-2.0) mmol/L Calcium (8.4-10.2) mg/dL Urine Protein Trace H (Negative) 08/30/18 08/30/18 08/30/18 Range/Units 07:31 08:25 08:25 WBC 20.5 H (3.8-10.6) k/uL Hgb 12.8 L (13.0-17.5) gm/dL MCHC 30.5 L (31.0-37.0) g/dL Neutrophils # 18.4 H (1.3-7.7) k/uL Lymphocytes # 0.7 L (1.0-4.8) k/uL Monocytes # 1.1 H (0-1.0) k/uL PT 28.6 H (9.0-12.0) sec INR 3.2 H (<1.2) Sodium (137-145) mmol/L Chloride (98-107) mmol/L Carbon Dioxide (22-30) mmol/L BUN (9-20) mg/dL Glucose (74-99) mg/dL POC Glucose (mg/dL) 114 H (75-99) mg/dL Plasma Lactic Acid Jesus (0.7-2.0) mmol/L Calcium (8.4-10.2) mg/dL Urine Protein (Negative) 08/30/18 Range/Units 08:25 WBC (3.8-10.6) k/uL Hgb (13.0-17.5) gm/dL MCHC (31.0-37.0) g/dL Neutrophils # (1.3-7.7) k/uL Lymphocytes # (1.0-4.8) k/uL Monocytes # (0-1.0) k/uL PT (9.0-12.0) sec INR (<1.2) Sodium 136 L (137-145) mmol/L Chloride 93 L (98-107) mmol/L Carbon Dioxide 40 H (22-30) mmol/L BUN 32 H (9-20) mg/dL Glucose 126 H (74-99) mg/dL POC Glucose (mg/dL) (75-99) mg/dL Plasma Lactic Acid Jesus (0.7-2.0) mmol/L Calcium 8.1 L (8.4-10.2) mg/dL Urine Protein (Negative) Assessment and Plan Plan: COPD exacerbation, possibly complicated by mild tracheobronchitis Acute on chronic hypoxemic respiratory failure History of hyperlipidemia History of ongoing tobacco use with nicotine addiction History of atrial fibrillation History of heart failure. History of benign essential hypertension History of DJD History of pneumonia History of glaucoma Plan: Patient is stable from pulmonary perspective, he is improving, he is at his baseline, he is tolerating ambulation, vital signs are stable, no fever or chills. From pulmonary perspective he is stable for discharge home today, follow up with Dr. Quarles in the office in one week I performed a history & physical examination of the patient and discussed their management with my nurse practitioner, Chasity Wheeler. I reviewed the nurse practitioner's note and agree with the documented findings and plan of care. Lung sounds are positive for diminished breath sounds. The findings and the impression was discussed with the patient. I attest to the documentation by the nurse practitioner. Time with Patient: Less than 30
[2018-08-30] MEDS: SODIUM CHLORIDE 0.9% 1,000 ML IV SCH (11:58)
[2018-08-30 11:59] LABS: Glucose,Whole Blood 95 mg/dL (75-99)
--- NOTE | 2018-08-30 12:01 | P.PN ---
Subjective Progress Note Date: 08/29/18 Principal diagnosis: Acute hypoxic and hypercapnic respiratory failure Acute exacerbation of COPD 68-year-old male with a known history of COPD on home oxygen, chronic hypoxic respiratory failure, use oxygen at night, hypertension, hyperlipidemia came to ER with complaints of shortness of breath and hypoxia. Patient does have history o of COPD and follows with Dr. Quarles as an outpatient. Patient has been having progressive shortness of breath for the past 2 weeks. Patient felt lightheaded and weak this morning. His pulse ox dropped down to 66% with oxygen. Patient does have cough but no recent change in quantity of frequency. No fever no chills. Denied any chest pain. Chest x-ray showed no acute cardiopulmonary process EKG showed normal sinus rhythm. BNP 390, bicarb 35 Random blood sugar 247 08/28/2018 patient seen in follow-up on medical surgical floor. He is improving however he was noted to be very hypoxemic during ambulation, and his oxygen demand increases to 8 L with ambulation. Lung sounds are diminished, with minimal wheezing, overall less bronchospastic compared to admission. Has been treated with the empiric antibiotics in the form of Rocephin and Zithromax, IV steroids , nebulized bronchodilators, and Symbicort. No new chest x-rays today, INR is up to 2.8. NO significant cough or chest congestion. No fever or chills. From pulmonary perspective patient will probably need another 24 hours of inpatient treatment, as been slow to recover, although he seems to have improved. 08/29/2018 The patient is seen again today in follow-up on the regular medical floor. He is currently resting quite comfortably in bed. He is awake and alert in no acute distress. He is nearly back to his baseline. He is down to 3 L/m per nasal cannula to maintain O2 saturations in the 90s. Patient is still dyspneic on minimal exertion. Currently afebrile. Blood culture reveals no growth. White count 20.0. Hemoglobin 13.5. INR 2.8. Bicarb 42. Creatinine 0.86. Patient is cleared for discharge from pulmonary standpoint with recommendations to continue all pulmonary medications and complete a course of antibiotic and prednisone taper; pulmonary recommending to use oxygen 24 hours a day instead of night; patient is to maintain O2 saturation greater than 88% and is recommended follow-up in pulmonary clinic in 1-2 weeks We will initiate sepsis workup with repeat UA, CBC, lactic acid levels and pro- calcitonin levels; we will switch patient's antibiotics to IV Zosyn; further recommendations after workup is complete Constitutional: Denied any fatigue denied any fever. Cardio vascular: denied any chest pain, palpitations Gastrointestinal denied any nausea vomiting Pulmonary: As mentioned in HPI Neurologic denied any new focal deficits All inpatient medications were reviewed and appropriate changes in these medications as dictated in the interval history and assessment and plan. Objective - Vital Signs Vital signs: Vital Signs Temp 96.4 F L 08/29/18 06:20 Pulse 98 08/29/18 11:37 Resp 20 08/29/18 11:23 BP 122/62 08/29/18 06:20 Pulse Ox 94 L 08/29/18 07:42 Intake & Output 08/28/18 08/29/18 08/29/18 18:59 06:59 18:59 Intake Total 100 Balance 100 Weight 93.4 kg 93.5 kg Intake: Oral 100 Other: Voiding Method Toilet # Voids 1 1 - Exam No acute distress, oriented 3. Nasal O2 in place. No audible wheezing. No use of accessory muscles. HEENT examination is grossly unremarkable. Mucous membranes are moist. No oral lesions. Neck supple. Full range of motion. No adenopathy thyromegaly or neck vein distention. Cardiovascular examination reveals regular rhythm rate. S1-S2 normal. No S3 or S4. No discernible murmur noted. Lungs reveal diffuse inspiratory and expiratory wheezes. Breath sounds are diminished. There is prolongation on forced maneuver. Adventitious lung sounds are more prominent on forced maneuver. No crackles. Breath sounds equal bilaterally. Abdomen soft bowel sounds are heard. No masses or tenderness. Extremities are intact. No cyanosis clubbing or edema. Skin is without rash or lesion. Neurologic examination is brief but nonfocal. - Labs CBC & Chem 7: 08/30/18 08:25 08/30/18 08:25 Labs: Abnormal Lab Results - Last 24 Hours (Table) 08/28/18 08/28/18 08/29/18 Range/Units 17:14 21:17 06:59 WBC (3.8-10.6) k/uL MCHC (31.0-37.0) g/dL Neutrophils # (1.3-7.7) k/uL Lymphocytes # (1.0-4.8) k/uL PT (9.0-12.0) sec INR (<1.2) Sodium (137-145) mmol/L Chloride (98-107) mmol/L Carbon Dioxide (22-30) mmol/L BUN (9-20) mg/dL Glucose (74-99) mg/dL POC Glucose (mg/dL) 137 H 170 H 143 H (75-99) mg/dL 08/29/18 08/29/18 08/29/18 Range/Units 09:35 09:35 09:35 WBC 20.0 H (3.8-10.6) k/uL MCHC 30.9 L (31.0-37.0) g/dL Neutrophils # 18.2 H (1.3-7.7) k/uL Lymphocytes # 0.6 L (1.0-4.8) k/uL PT 25.1 H (9.0-12.0) sec INR 2.8 H (<1.2) Sodium 136 L (137-145) mmol/L Chloride 87 L (98-107) mmol/L Carbon Dioxide 42 H* (22-30) mmol/L BUN 36 H (9-20) mg/dL Glucose 152 H (74-99) mg/dL POC Glucose (mg/dL) (75-99) mg/dL 08/29/18 Range/Units 12:44 WBC (3.8-10.6) k/uL MCHC (31.0-37.0) g/dL Neutrophils # (1.3-7.7) k/uL Lymphocytes # (1.0-4.8) k/uL PT (9.0-12.0) sec INR (<1.2) Sodium (137-145) mmol/L Chloride (98-107) mmol/L Carbon Dioxide (22-30) mmol/L BUN (9-20) mg/dL Glucose (74-99) mg/dL POC Glucose (mg/dL) 113 H (75-99) mg/dL Assessment and Plan Assessment: Plan: Acute on chronic hypoxic respiratory failure secondary to COPD: - Continue with systemic steroids and initial treatments. Rocephin will be discontinued - Patient desaturates pretty significantly while ambulating - Remains on 3 L of oxygen per nasal cannula and saturates around 95-96% while at rest but oxygen demand increases to 8L while ambulating - We await further recommendations from pulmonary service Acute COPD exacerbation - Continue with bronchodilator and steroid nebulizer treatment - We will continue patient on Solu-Medrol 60 mg IV every 6 hours - O2 per nasal cannula keeping SpO2 greater than 88% Acute tracheobronchitis - Remains on Zithromax 500 mg by mouth daily - Continue with bronchodilator and steroid nebulizer treatments Paroxysmal atrial fibrillation - on anticoagulation at home with warfarin. INR is presently therapeutic we'll repeat INR tomorrow again - Patient remains rate controlled without any active intervention Hypertension; - remains stable on lisinopril 5 mg daily - We will monitor blood pressure closely and make adjustments if needed Hyperlipidemia; continue with home dose of Lipitor 20 mg daily at bedtime Osteoarthritis Chronic CHF with ejection fraction unknown; compensated - Continue with Lasix 20 mg daily Nicotine addiction; strongly recommended to stop smoking DVT prophylaxis; SCDs/systemic anticoagulation with Coumadin CODE STATUS; full code
[2018-08-30 17:15] LABS: Glucose,Whole Blood 113 mg/dL (75-99)
[2018-08-30] MEDS ORDERED: WARFARIN 0.5 MG TAB PO ONE (18:00)
[2018-08-30 21:05] LABS: Glucose,Whole Blood 233 mg/dL (75-99)
[2018-08-30] MEDS: LATANOPROST 0.005% OPHTH DROPS 2.5 ML BTL BOTH EYES SCH (21:33)
[2018-08-30] MEDS: ATORVASTATIN 20 MG TAB PO SCH (21:33)
[2018-08-31] MEDS: SODIUM CHLORIDE 0.9% 1,000 ML IV SCH ×2 (00:33→08:01)
[2018-08-31] MEDS: methylPREDNISolone SOD SUCCI 125 MG/2 ML VIAL IV SCH ×3 (00:34→12:34)
[2018-08-31] MEDS: PIPERACILLIN-TAZOBACTAM 3.375 GM in SODIUM CHLORIDE 0.9% 100 ML IVPB SCH ×2 (00:35→08:01)
[2018-08-31 07:34] LABS: Glucose,Whole Blood 129 mg/dL (75-99)
[2018-08-31 07:51] VITALS: BP 136/74; RESP 18; TEMP 96.2
[2018-08-31] MEDS: SYMBICORT 160-4.5 MCG INHALER INHALATION SCH (07:51)
[2018-08-31] MEDS: IPRATROPIUM-ALBUTEROL 3 ML NEB INHALATION SCH ×2 (07:51→11:12)
[2018-08-31] MEDS: INSULIN ASPART 100 UNIT/ML 1 ML 10 ML VIAL SQ SCH ×2 (07:57→12:33)
[2018-08-31] MEDS: FUROSEMIDE 20 MG TAB PO SCH (08:02)
[2018-08-31] MEDS: AZITHROMYCIN 500 MG TAB PO SCH (08:02)
[2018-08-31] MEDS: LISINOPRIL 5 MG TAB PO SCH (08:02)
[2018-08-31 09:02] LABS: Basophils % (A) 0 %; Eosinophils % (A) 0 %; HCT 41.3 % (39.0-53.0); HGB 12.5 gm/dL (13.0-17.5); Hypochromasia Marked; Lymphocytes # (A) 0.5 k/uL (1.0-4.8); Lymphocytes % (A) 3 %; MCH 29.4 pg (25.0-35.0); MCHC 30.3 g/dL (31.0-37.0); MCV 97.1 fL (80.0-100.0); Mean Platelet Volume 7.1; Monocytes # (A) 0.6 k/uL (0-1.0); Monocytes % (A) 3 %; Neutrophils # (A) 17.8 k/uL (1.3-7.7); Neutrophils % (A) 94 %; Platelet Count 295 k/uL (150-450); RBC 4.25 m/uL (4.30-5.90); RDW 15.2 % (11.5-15.5); WBC 19.1 k/uL (3.8-10.6)
[2018-08-31 09:06] LABS: INR 2.4 (<1.2)
[2018-08-31 09:48] LABS: Anion Gap 6 mmol/L; Blood Urea Nitrogen 27 mg/dL (9-20); Calcium 8.3 mg/dL (8.4-10.2); Carbon Dioxide 37 mmol/L (22-30); Chloride 93 mmol/L (98-107); Glucose 224 mg/dL (74-99); Potassium 4.9 mmol/L (3.5-5.1); Sodium 136 mmol/L (137-145)
[2018-08-31 11:24] VITALS: PULSE 94
--- NOTE | 2018-08-31 12:08 | P.PN ---
Subjective Progress Note Date: 08/31/18 Principal diagnosis: Shortness of breath, related to acute COPD exacerbation. Progress note dated 08/23/2018 This is a 68-year-old male well-known to our service. He is admitted with a diagnosis of COPD exacerbation, acute on chronic hypoxemic respiratory failure, hyperlipidemia, ongoing tobacco use atrial fibrillation and heart failure benign essential hypertension DJD pneumonia and glaucoma. The patient is feeling a bit better today than yesterday. Still very short of breath. Lots of cough wheezing and chest tightness. His pan washer hand is my partner Dr. Quarles. The patient unfortunately continues to smoke. He states that he smokes about a half a pack a day. His confirms that. He denies any chest pain or chest discomfort. No palpitations. No nausea vomiting diarrhea. No fever or chills. Chest x-ray only showed evidence of COPD. On 08/24/2018 patient seen in follow-up on medical surgical floor. He states he is about 30-40% improved, since admission. His lung sounds are still tight and wheezy, diminished. Pulse ox on 3 L per nasal cannula was 93%, he is afebrile, with culture remains negative. He continues on empiric antibiotics in the form of Zithromax and Rocephin, he is on nebulized bronchodilators, he is on oral Lasix, and IV steroids, and he is improving. On 08/27/2018 patient seen in follow-up on medical surgical floor. Improving, although there is some still residual wheezing and dyspnea with exertion. Remains on 2 L per nasal cannula, his pulse ox is 97%, afebrile, hemodynamically stable. Remains on Rocephin, and Zithromax, nebulized bronchodilators, Symbicort. Blood cultures are negative. Patient is afebrile. WBC is 13.3, hemoglobin is 13.0, sodium is 138, potassium is 5.2, chloride is 92, CO2 is 43, B1 is 38 and creatinine 0.92. On 08/28/2018 patient seen in follow-up on medical surgical floor. He is improving however he was noted to be very hypoxemic during ambulation, and his oxygen demand increases to 8 L with ambulation. Lung sounds are diminished, with minimal wheezing, overall less bronchospastic compared to admission. Has been treated with the empiric antibiotics in the form of Rocephin and Zithromax , IV steroids, nebulized bronchodilators, and Symbicort. No new chest x-rays today, INR is up to 2.8. NO significant cough or chest congestion. No fever or chills. From pulmonary perspective patient will probably need another 24 hours of inpatient treatment, as been slow to recover, although he seems to have improved. On 08/30/2018 patient seen in follow-up on medical surgical floor, in no acute distress, lung sounds are essentially clear, no rhonchi, no wheezing noted on today's exam, he has been ambulating in the room, to the bathroom, on room air, in no acute distress. He is pretty much back to his baseline, no fever or chills, labs have been reviewed, WBC is 20.5, hemoglobin is 12.8, INR is 3.2, sodium is 136, chloride is 93, CO2 is 40, B1 is 32, creatinine 0.91. Urinalysis is negative. No fever, no chills. No specific complaints or acute events overnight, from pulmonary perspective patient is cleared for discharge home today On 08/31/2018 patient seen in follow-up on medical surgical floor. Continues to improve, no specific complaints, no acute events overnight, vital signs are stable, fever no chills, no worsening dyspnea, on 2 L per nasal cannula, oxygen 91%, afebrile. No new chest x-rays today, today's lab work has been reviewed, WBCs 19.1, hemoglobin is 12.5, INR is 2.4, sodium is 136, chloride is 93, CO2 is 37, B1 is 27 creatinine 0.90. From pulmonary perspective patient is clear for discharge home, remains stable, he is at his baseline. Objective - Vital Signs Vital signs: Vital Signs Temp 96.2 F L 08/31/18 07:00 Pulse 94 08/31/18 11:23 Resp 18 08/31/18 07:00 BP 136/74 08/31/18 07:00 Pulse Ox 91 L 08/31/18 07:00 Intake & Output 08/30/18 08/31/18 08/31/18 18:59 06:59 18:59 Intake Total 750 Balance 750 Weight 95.2 kg Intake: Oral 750 Other: Voiding Method Toilet # Voids 2 2 - Exam No acute distress, oriented 3. Nasal O2 in place. No audible wheezing. No use of accessory muscles. HEENT examination is grossly unremarkable. Mucous membranes are moist. No oral lesions. Neck supple. Full range of motion. No adenopathy thyromegaly or neck vein distention. Cardiovascular examination reveals regular rhythm rate. S1-S2 normal. No S3 or S4. No discernible murmur noted. Lungs reveal breath sounds are diminished , no rhonchi, no wheezes Abdomen soft bowel sounds are heard. No masses or tenderness. Extremities are intact. No cyanosis clubbing or edema. Skin is without rash or lesion. Neurologic examination is brief but nonfocal. - Labs CBC & Chem 7: 08/31/18 08:39 08/31/18 08:39 Labs: Abnormal Lab Results - Last 24 Hours (Table) 08/30/18 08/30/18 08/31/18 Range/Units 17:13 21:04 07:32 WBC (3.8-10.6) k/uL RBC (4.30-5.90) m/uL Hgb (13.0-17.5) gm/dL MCHC (31.0-37.0) g/dL Neutrophils # (1.3-7.7) k/uL Lymphocytes # (1.0-4.8) k/uL PT (9.0-12.0) sec INR (<1.2) Sodium (137-145) mmol/L Chloride (98-107) mmol/L Carbon Dioxide (22-30) mmol/L BUN (9-20) mg/dL Glucose (74-99) mg/dL POC Glucose (mg/dL) 113 H 233 H 129 H (75-99) mg/dL Calcium (8.4-10.2) mg/dL 08/31/18 08/31/18 08/31/18 Range/Units 08:39 08:39 08:39 WBC 19.1 H (3.8-10.6) k/uL RBC 4.25 L (4.30-5.90) m/uL Hgb 12.5 L (13.0-17.5) gm/dL MCHC 30.3 L (31.0-37.0) g/dL Neutrophils # 17.8 H (1.3-7.7) k/uL Lymphocytes # 0.5 L (1.0-4.8) k/uL PT 22.0 H (9.0-12.0) sec INR 2.4 H (<1.2) Sodium 136 L (137-145) mmol/L Chloride 93 L (98-107) mmol/L Carbon Dioxide 37 H (22-30) mmol/L BUN 27 H (9-20) mg/dL Glucose 224 H (74-99) mg/dL POC Glucose (mg/dL) (75-99) mg/dL Calcium 8.3 L (8.4-10.2) mg/dL Microbiology - Last 24 Hours (Table) 08/30/18 04:00 Urine Culture - Preliminary Urine,Voided Assessment and Plan Plan: COPD exacerbation, possibly complicated by mild tracheobronchitis Acute on chronic hypoxemic respiratory failure History of hyperlipidemia History of ongoing tobacco use with nicotine addiction History of atrial fibrillation History of heart failure. History of benign essential hypertension History of DJD History of pneumonia History of glaucoma Plan: Patient is stable, he continues to improve, no acute events overnight, he is tolerating ambulation, no worsening shortness of breath or chest pain. A fever or chills, from pulmonary perspective patient is stable for discharge home, follow-up with Dr. Quarles in the office in one week I performed a history & physical examination of the patient and discussed their management with my nurse practitioner, Chsaity Wheeler. I reviewed the nurse practitioner's note and agree with the documented findings and plan of care. Lung sounds are positive for diminished breath sounds. The findings and the impression was discussed with the patient. I attest to the documentation by the nurse practitioner. Time with Patient: Less than 30
[2018-08-31 12:11] LABS: Glucose,Whole Blood 106 mg/dL (75-99)
--- NOTE | 2018-08-31 13:27 | P.PN ---
Subjective Progress Note Date: 08/30/18 Principal diagnosis: Acute hypoxic and hypercapnic respiratory failure Acute exacerbation of COPD 68-year-old male with a known history of COPD on home oxygen, chronic hypoxic respiratory failure, use oxygen at night, hypertension, hyperlipidemia came to ER with complaints of shortness of breath and hypoxia. Patient does have history o of COPD and follows with Dr. Quarles as an outpatient. Patient has been having progressive shortness of breath for the past 2 weeks. Patient felt lightheaded and weak this morning. His pulse ox dropped down to 66% with oxygen. Patient does have cough but no recent change in quantity of frequency. No fever no chills. Denied any chest pain. Chest x-ray showed no acute cardiopulmonary process EKG showed normal sinus rhythm. BNP 390, bicarb 35 Random blood sugar 247 08/28/2018 patient seen in follow-up on medical surgical floor. He is improving however he was noted to be very hypoxemic during ambulation, and his oxygen demand increases to 8 L with ambulation. Lung sounds are diminished, with minimal wheezing, overall less bronchospastic compared to admission. Has been treated with the empiric antibiotics in the form of Rocephin and Zithromax, IV steroids , nebulized bronchodilators, and Symbicort. No new chest x-rays today, INR is up to 2.8. NO significant cough or chest congestion. No fever or chills. From pulmonary perspective patient will probably need another 24 hours of inpatient treatment, as been slow to recover, although he seems to have improved. 08/29/2018 The patient is seen again today in follow-up on the regular medical floor. He is currently resting quite comfortably in bed. He is awake and alert in no acute distress. He is nearly back to his baseline. He is down to 3 L/m per nasal cannula to maintain O2 saturations in the 90s. Patient is still dyspneic on minimal exertion. Currently afebrile. Blood culture reveals no growth. White count 20.0. Hemoglobin 13.5. INR 2.8. Bicarb 42. Creatinine 0.86. Patient is cleared for discharge from pulmonary standpoint with recommendations to continue all pulmonary medications and complete a course of antibiotic and prednisone taper; pulmonary recommending to use oxygen 24 hours a day instead of night; patient is to maintain O2 saturation greater than 88% and is recommended follow-up in pulmonary clinic in 1-2 weeks We will initiate sepsis workup with repeat UA, CBC, lactic acid levels and pro- calcitonin levels; we will switch patient's antibiotics to IV Zosyn; further recommendations after workup is complete 08/30/2018 patient seen in follow-up on medical surgical floor, in no acute distress, lung sounds are essentially clear, no rhonchi, no wheezing noted on today's exam, he has been ambulating in the room, to the bathroom, on room air, in no acute distress. He is pretty much back to his baseline, no fever or chills, labs have been reviewed, WBC is 20.5, hemoglobin is 12.8, INR is 3.2, sodium is 136, chloride is 93, CO2 is 40, B1 is 32, creatinine 0.91. Urinalysis is negative. No fever, no chills. No specific complaints or acute events overnight, from pulmonary perspective patient is cleared for discharge home today Patient sepsis workup did show a persistently elevated white blood count and an elevated lactic acid level; patient's IV antibiotics were switched to Zosyn and was given a bolus and maintenance IV fluids; Due to persistent leukocytosis I have asked ID to evaluate patient; patient will be discharged home once cleared by ID Constitutional: Denied any fatigue denied any fever. Cardio vascular: denied any chest pain, palpitations Gastrointestinal denied any nausea vomiting Pulmonary: As mentioned in HPI Neurologic denied any new focal deficits All inpatient medications were reviewed and appropriate changes in these medications as dictated in the interval history and assessment and plan. Objective - Vital Signs Vital signs: Vital Signs Temp 97 F L 08/30/18 06:11 Pulse 96 08/30/18 11:13 Resp 20 08/30/18 06:11 BP 137/79 08/30/18 06:11 Pulse Ox 94 L 08/30/18 06:30 Intake & Output 08/29/18 08/30/18 08/30/18 18:59 06:59 18:59 Intake Total 300 Balance 300 Weight 94.801 kg Intake: Oral 300 Other: Voiding Method Toilet # Voids 3 1 - Exam No acute distress, oriented 3. Nasal O2 in place. No audible wheezing. No use of accessory muscles. HEENT examination is grossly unremarkable. Mucous membranes are moist. No oral lesions. Neck supple. Full range of motion. No adenopathy thyromegaly or neck vein distention. Cardiovascular examination reveals regular rhythm rate. S1-S2 normal. No S3 or S4. No discernible murmur noted. Lungs reveal diffuse inspiratory and expiratory wheezes. Breath sounds are diminished. There is prolongation on forced maneuver. Adventitious lung sounds are more prominent on forced maneuver. No crackles. Breath sounds equal bilaterally. Abdomen soft bowel sounds are heard. No masses or tenderness. Extremities are intact. No cyanosis clubbing or edema. Skin is without rash or lesion. Neurologic examination is brief but nonfocal. - Labs CBC & Chem 7: 08/31/18 08:39 08/31/18 08:39 Labs: Abnormal Lab Results - Last 24 Hours (Table) 08/29/18 08/29/18 08/29/18 Range/Units 12:44 14:30 17:34 WBC (3.8-10.6) k/uL Hgb (13.0-17.5) gm/dL MCHC (31.0-37.0) g/dL Neutrophils # (1.3-7.7) k/uL Lymphocytes # (1.0-4.8) k/uL Monocytes # (0-1.0) k/uL PT (9.0-12.0) sec INR (<1.2) Sodium (137-145) mmol/L Chloride (98-107) mmol/L Carbon Dioxide (22-30) mmol/L BUN (9-20) mg/dL Glucose (74-99) mg/dL POC Glucose (mg/dL) 113 H 133 H (75-99) mg/dL Plasma Lactic Acid Jesus 2.5 H* (0.7-2.0) mmol/L Calcium (8.4-10.2) mg/dL Urine Protein (Negative) 08/29/18 08/29/18 08/30/18 Range/Units 18:26 20:28 04:00 WBC (3.8-10.6) k/uL Hgb (13.0-17.5) gm/dL MCHC (31.0-37.0) g/dL Neutrophils # (1.3-7.7) k/uL Lymphocytes # (1.0-4.8) k/uL Monocytes # (0-1.0) k/uL PT (9.0-12.0) sec INR (<1.2) Sodium (137-145) mmol/L Chloride (98-107) mmol/L Carbon Dioxide (22-30) mmol/L BUN (9-20) mg/dL Glucose (74-99) mg/dL POC Glucose (mg/dL) 133 H (75-99) mg/dL Plasma Lactic Acid Jesus 3.2 H* (0.7-2.0) mmol/L Calcium (8.4-10.2) mg/dL Urine Protein Trace H (Negative) 08/30/18 08/30/18 08/30/18 Range/Units 07:31 08:25 08:25 WBC 20.5 H (3.8-10.6) k/uL Hgb 12.8 L (13.0-17.5) gm/dL MCHC 30.5 L (31.0-37.0) g/dL Neutrophils # 18.4 H (1.3-7.7) k/uL Lymphocytes # 0.7 L (1.0-4.8) k/uL Monocytes # 1.1 H (0-1.0) k/uL PT 28.6 H (9.0-12.0) sec INR 3.2 H (<1.2) Sodium (137-145) mmol/L Chloride (98-107) mmol/L Carbon Dioxide (22-30) mmol/L BUN (9-20) mg/dL Glucose (74-99) mg/dL POC Glucose (mg/dL) 114 H (75-99) mg/dL Plasma Lactic Acid Jesus (0.7-2.0) mmol/L Calcium (8.4-10.2) mg/dL Urine Protein (Negative) 08/30/18 Range/Units 08:25 WBC (3.8-10.6) k/uL Hgb (13.0-17.5) gm/dL MCHC (31.0-37.0) g/dL Neutrophils # (1.3-7.7) k/uL Lymphocytes # (1.0-4.8) k/uL Monocytes # (0-1.0) k/uL PT (9.0-12.0) sec INR (<1.2) Sodium 136 L (137-145) mmol/L Chloride 93 L (98-107) mmol/L Carbon Dioxide 40 H (22-30) mmol/L BUN 32 H (9-20) mg/dL Glucose 126 H (74-99) mg/dL POC Glucose (mg/dL) (75-99) mg/dL Plasma Lactic Acid Jesus (0.7-2.0) mmol/L Calcium 8.1 L (8.4-10.2) mg/dL Urine Protein (Negative) Microbiology - Last 24 Hours (Table) 08/30/18 04:00 Urine Culture - Preliminary Urine,Voided Assessment and Plan Assessment: Plan: Acute on chronic hypoxic respiratory failure secondary to COPD: - Continue with systemic steroids and initial treatments. Rocephin will be discontinued - Patient desaturates pretty significantly while ambulating - Remains on 3 L of oxygen per nasal cannula and saturates around 95-96% while at rest but oxygen demand increases to 8L while ambulating - We await further recommendations from pulmonary service Acute COPD exacerbation - Continue with bronchodilator and steroid nebulizer treatment - We will continue patient on Solu-Medrol 60 mg IV every 6 hours - O2 per nasal cannula keeping SpO2 greater than 88% Acute tracheobronchitis - Remains on Zithromax 500 mg by mouth daily - Continue with bronchodilator and steroid nebulizer treatments Paroxysmal atrial fibrillation - on anticoagulation at home with warfarin. INR is presently therapeutic we'll repeat INR tomorrow again - Patient remains rate controlled without any active intervention Hypertension; - remains stable on lisinopril 5 mg daily - We will monitor blood pressure closely and make adjustments if needed Hyperlipidemia; continue with home dose of Lipitor 20 mg daily at bedtime Osteoarthritis Chronic CHF with ejection fraction unknown; compensated - Continue with Lasix 20 mg daily Nicotine addiction; strongly recommended to stop smoking DVT prophylaxis; SCDs/systemic anticoagulation with Coumadin CODE STATUS; full code Time with Patient: Greater than 30
[2018-08-31] MEDS ORDERED: WARFARIN 5 MG TAB PO ONE (18:00)
--- NOTE | 2018-08-31 20:54 | CONS ---
CONSULTATION DATE OF SERVICE: 08/31/2018. REASON FOR CONSULTATION: Leukocytosis. HISTORY OF PRESENT ILLNESS: The patient is a 68 -year-old male who presented to the ER about 10 days ago with chief complaints of increasing shortness of breath. The patient's symptoms have been going on for a total of 6 weeks before he presented to hospital. The patient shortness of breath had been mostly on exertion, but even at rest did have some wheezing: The patient also has some cough which has been mostly dry in nature. The patient feels lightheaded and weak. With these symptoms, the patient presented to the [facility] ER. On arrival to the ER, the patient did have a chest x-ray, which shows no evidence of any acute cardiopulmonary disease. The patient has been afebrile throughout his hospital stay. The patient who did have a normal white count of 10.2 on admission. Subsequently, his white count has been slowly increasing. Highest has been 24.3 on 08/24, did come down to 13.3 on August 16 however has been up to 20.5 as of yesterday that prompted this infectious disease consultation. The patient's main symptoms have been shortness of breath that apparently has been slowly improving. The cough has been mostly dry in nature with question white sputum. No hemoptysis. No chest pain. No abdominal pain. No nausea, vomiting, or any diarrhea. The patient also had a CT angiogram that was completed on 08/28/2018 that did not show any pulmonary embolism and the lungs were clear of infiltrate. The patient denies any urinary symptoms. He did have a UA on the , which has been negative. Infectious Disease was consulted for evaluation of elevated white count and need for any antibiotic therapy which the patient currently has been receiving in the form of Zithromax and Zosyn. REVIEW OF SYSTEMS: Constitutional: Positive for weakness. No fever. Eyes: No complaint. ENT no complaint. Respiratory as per HPI. Cardiovascular no complaint. Genitourinary no complaint. Gastrointestinal: No complaint. Musculoskeletal no clubbing. Integumentary: No complaint. Psychological: No complaint. Endocrine no complaint. Neurologic no complaint. PAST MEDICAL HISTORY: Significant for atrial fibrillation, heart failure, COPD, hyperlipidemia, hypertension, osteoarthritis, pneumonia, atrial flutter. Glaucoma. PAST SURGICAL HISTORY: Right eye surgery. SOCIAL HISTORY: Current everyday smoker. Occasionally drinks. No drug use. FAMILY HISTORY: Brother with a history of CML. ALLERGIES: No known drug allergies. MEDICATIONS: Medications include the patient currently on Zosyn, Coumadin, Solu-Medrol, Zestril, NovoLog, Lasix, Zithromax, Lipitor, DuoNeb. EXAMINATION: Blood pressure is 136/74 with a pulse of 92, temperature 96.2. He is 91% on 3 L nasal cannula. General description is an elderly male lying in bed in no distress. No tachypnea or accessory muscles of respiration use. HEENT: Shows slight pallor. No scleral icterus. Oral mucous membranes dry. No pharyngeal erythema or thrush. Neck trachea central. No thyromegaly. LUNGS: Unlabored breathing with decreased breath sounds in the base, with no wheeze. Heart S1, S2. Regular rate and rhythm. ABDOMEN: Soft, no tenderness. No guarding. No rigidity. No organomegaly. EXTREMITIES: No edema of the feet. Skin examination: No rash or mass palpable. Neurological: Patient is awake, alert, oriented times three. Mood and affect normal. LABS: Hemoglobin is 12.5, white count 19.1, BUN of 27, creatinine 0.90. UA has been negative. Blood culture negative. Urine culture negative. Chest x-ray was negative for any pneumonia. The patient did have a CT angiogram that was negative for any PE or acute pulmonary infiltrate. DIAGNOSTIC IMPRESSION AND PLAN: Patient with elevated white count/leukocytosis, more likely secondary to steroid effect in this patient admitted to the hospital with COPD exacerbation, possible tracheobronchitis, but no evidence of any pneumonia. The patient did have a normal white count on admission and after exposure to antibiotic, his white count has been on the high side. The patient with no fever during this admission. The CT and chest x- ray were negative for any infiltrate suspicious for pneumonia. Abdomen was soft on clinical examination. UA has been negative. No evidence of any cellulitis or joint swelling. PLAN: 1. With no clinical suspicion for any bacterial infection, antibiotic can be safely discontinued. 2. The white count and expect it to come down once the steroids count back. 3. The patient is cleared to be discharged from Infectious Disease standpoint. This was communicated to the patient's RN. Thank you for the consultation. MMODL / IJN: [id number] /
== END 2018-08-31 14:16 | disposition home or self-care (01) | DRG 189 ==
LOC: EC 11:31 → 4MS4W 14:25
PROVIDERS: ADMIT Internal Medicine; ATTEND Internal Medicine
DX: J96.21 Acute and chronic respiratory failure with hypoxia (principal); J44.0 Chronic obstructive pulmonary disease with (acute) lower respiratory infection; J44.1 Chronic obstructive pulmonary disease with (acute) exacerbation; I48.2 Chronic atrial fibrillation; I11.0 Hypertensive heart disease with heart failure; I50.9 Heart failure, unspecified; J96.22 Acute and chronic respiratory failure with hypercapnia; D72.829 Elevated white blood cell count, unspecified; T38.0X5A Adverse effect of glucocorticoids and synthetic analogues, initial encounter; R79.1 Abnormal coagulation profile; T45.515A Adverse effect of anticoagulants, initial encounter; E78.5 Hyperlipidemia, unspecified; J20.9 Acute bronchitis, unspecified; H40.9 Unspecified glaucoma; M19.90 Unspecified osteoarthritis, unspecified site; E66.9 Obesity, unspecified; Z68.31 Body mass index [BMI] 31.0-31.9, adult; F17.210 Nicotine dependence, cigarettes, uncomplicated; Z71.6 Tobacco abuse counseling; Z99.81 Dependence on supplemental oxygen; Z79.01 Long term (current) use of anticoagulants; Z79.51 Long term (current) use of inhaled steroids; Z79.899 Other long term (current) drug therapy; Z87.01 Personal history of pneumonia (recurrent); Z97.3 Presence of spectacles and contact lenses; Z80.6 Family history of leukemia; Z86.79 Personal history of other diseases of the circulatory system
CPT/HCPCS: 36415; 36600; 71046; 71275; 80048; 80053; 81003; 82550; 82553; 82805; 83036; 83605; 83735; 83880; 84145; 84484; 85025; 85610; 85730; 87040; 87086; 93005; 94640; 94644; 94760; 96374; 99291

== ENCOUNTER 2019-01-08 12:08 | Inpatient (IN) | payer MEDICARE, BC ==
--- NOTE | 2019-01-08 13:14 | ED ---
General Adult HPI - General Chief complaint: Shortness of Breath Stated complaint: [place] Time Seen by Provider: 01/08/19 12:10 Source: patient, EMS Mode of arrival: ambulatory Limitations: no limitations - History of Present Illness Initial comments: Dictation was produced using [employer] dictation software. please excuse any grammatical, word or spelling errors. Chief Complaint: 68-year-old male past medical history atrial fibrillation, heart failure, COPD, hypertension presents with being found down. History of Present Illness: Patient is a 68-year-old. he has multiple pulmonary and cardiac comorbidities. Patient lives with his who normally takes care of him however she went down to [place]. He's been at home by himself over the last day. He gets frequent visits from his family members. Today his daughter went to go see him and he was found confused on the ground and tumbling his oxygen. Patient normally on 2 L of nasal cannula at home. Patient was recently seen by activities counselor and recreation program coordinator. Patient has no complaints at this time. Daughter who is accompanying patient reports that he has these strange jerky rhythmic movements. The ROS documented in this emergency department record has been reviewed and confirmed by me. Those systems with pertinent positive or negative responses have been documented in the HPI. All other systems are other negative and/or noncontributory. PHYSICAL EXAM: General Impression: Alert and oriented x3, not in acute distress, pale, julian HEENT: Normocephalic atraumatic, extra-ocular movements intact, pupils equal and reactive to light bilaterally, mucous membranes moist. Cardiovascular: Heart regular rate and rhythm, S1&S2 audible, no murmurs, rubs or gallops Chest: Bilateral lung rhonchi Abdomen: Soft, nontender nondistended, no organomegaly Musculoskeletal: Pulses present and equal in all extremities, 2+ pitting edema bilaterally Motor: no focal deficits noted Neurological: CN II-XII grossly intact, no focal motor or sensory deficits noted Skin: Intact with no visualized rashes Psych: Agitated ED course: 68-year-old male with multiple cardiac and pulmonary comorbidities, on supplemental O2 at baseline presents with hypoxia, altered mental status. As upon arrival shows heart rate of 108, 94% on 3 L nasal cannula. Patient is normotensive. Laboratory evaluation obtained. CBC is grossly unchanged. Coag panel shows INR 1.3. Patient is on Coumadin. His subtherapeutic INR. Blood gas shows pH of 7.3 with a pCO2 of 83 and a bicarb of 40. This likely represents a mild acidosis with renal compensation. Potassium 5.7. Patient has a backup of 38. Creatinine of 1.73. Cardiac enzymes negative. Prematurity peptide is 196. Chest x-ray shows low lung volumes with atelectasis. Patient showing any signs of respiratory distress however given his extensive pulmonary history he is given a DuoNeb and steroids. Patient started on his usual home medications. Patient to be admitted for hypoxic respiratory failure. She denies requiring 4 L of nasal cannula nor to maintains his saturations in the low 90s. He usually uses 2 L at home. EKG interpretation: Ventricular rate 105, sinus tachycardia,. 136, Q 70, QTC 393. No AR prolongation, no QTC prolongation, no ST or T-wave changes noted. Overall, this EKG is unremarkable - Related Data Home Medications Medication Instructions Recorded Confirmed Atorvastatin [Lipitor] 20 mg PO HS 05/02/17 01/08/19 Fluticasone/Vilanterol [Breo 1 puff INHALATION RT-BID 05/02/17 01/08/19 Ellipta 200-25 Mcg INH] Furosemide [Lasix] 20 mg PO DAILY 05/02/17 01/08/19 Albuterol Nebulized [Ventolin 3 ml INHALATION RT-TID 08/21/18 01/08/19 Nebulized] Metoprolol Succinate (ER) [Toprol 75 mg PO BID 01/08/19 01/08/19 Xl] Warfarin [Coumadin] 7.5 mg PO TUTHSA 01/08/19 01/08/19 Warfarin [Coumadin] 10 mg PO SUMOWEFR 01/08/19 01/08/19 Previous Rx's Medication Instructions Recorded Lisinopril [Zestril] 5 mg PO DAILY #30 tab 11/07/16 Spironolactone [Aldactone] 25 mg PO DAILY #30 tab 11/07/16 Allergies Allergy/AdvReac Type Severity Reaction Status Date / Time No Known Allergies Allergy Verified 01/08/19 12:28 Review of Systems ROS Statement: Those systems with pertinent positive or pertinent negative responses have been documented in the HPI. ROS Other: All systems not noted in ROS Statement are negative. Past Medical History Past Medical History: Atrial Fibrillation, Heart Failure, COPD, Eye Disorder, Hyperlipidemia, Hypertension, Osteoarthritis (OA), Pneumonia Additional Past Medical History / Comment(s): COPD,02 2 liters n/c at hs, previous history of acute respiratory failure related to COPD exacerbation/v ented, glaucoma, obesity, chronic atrial fibrillation/flutter,wears contact lense rt eye and also weras glasses History of Any Multi-Drug Resistant Organisms: None Reported Additional Past Surgical History / Comment(s): right eye surgery.colonoscopy Past Anesthesia/Blood Transfusion Reactions: No Reported Reaction Past Psychological History: No Psychological Hx Reported Smoking Status: Current every day smoker Past Alcohol Use History: None Reported Past Drug Use History: None Reported - Past Family History Brother(s) Family Medical History: Cancer Additional Family Medical History / Comment(s): CMML General Exam Limitations: no limitations Course Vital Signs 01/08/19 01/08/19 01/08/19 12:12 14:46 15:42 Temperature 98.9 F Pulse Rate 108 H 100 106 H Respiratory 24 24 22 Rate Blood Pressure 120/62 120/62 145/89 O2 Sat by Pulse 94 L 93 L 89 L Oximetry Medical Decision Making - Lab Data Result diagrams: 01/08/19 13:15 01/08/19 13:15 Lab Results 01/08/19 01/08/19 01/08/19 Range/Units 13:00 13:15 13:15 WBC 10.4 (3.8-10.6) k/uL RBC 3.92 L (4.30-5.90) m/uL Hgb 12.1 L (13.0-17.5) gm/dL Hct 39.6 (39.0-53.0) % MCV 101.1 H (80.0-100.0) fL MCH 30.9 (25.0-35.0) pg MCHC 30.6 L (31.0-37.0) g/dL RDW 13.3 (11.5-15.5) % Plt Count 263 (150-450) k/uL Neutrophils % 77 % Lymphocytes % 12 % Monocytes % 9 % Eosinophils % 0 % Basophils % 0 % Neutrophils # 8.0 H (1.3-7.7) k/uL Lymphocytes # 1.2 (1.0-4.8) k/uL Monocytes # 1.0 (0-1.0) k/uL Eosinophils # 0.0 (0-0.7) k/uL Basophils # 0.0 (0-0.2) k/uL Hypochromasia Marked Macrocytosis Slight PT (9.0-12.0) sec INR (<1.2) APTT (22.0-30.0) sec VBG pH 7.31 (7.31-7.41) VBG pCO2 83 H* (37-51) mmHg VBG HCO3 40 H (24-28) mmol/L Sodium 137 (137-145) mmol/L Potassium 5.7 H (3.5-5.1) mmol/L Chloride 90 L (98-107) mmol/L Carbon Dioxide 38 H (22-30) mmol/L Anion Gap 9 mmol/L BUN 41 H (9-20) mg/dL Creatinine 1.73 H (0.66-1.25) mg/dL Est GFR (CKD-EPI)AfAm 47 (>60 ml/min/1.73 sqM) Est GFR (CKD-EPI)NonAf 40 (>60 ml/min/1.73 sqM) Glucose 115 H (74-99) mg/dL Calcium 9.1 (8.4-10.2) mg/dL Magnesium 2.2 (1.6-2.3) mg/dL Total Bilirubin 0.6 (0.2-1.3) mg/dL AST 19 (17-59) U/L ALT 34 (21-72) U/L Alkaline Phosphatase 106 (38-126) U/L Creatine Kinase 48 L (55-170) U/L CK-MB (CK-2) (0.0-2.4) ng/mL Troponin I (0.000-0.034) ng/mL NT-Pro-B Natriuret Pep pg/mL Total Protein 5.9 L (6.3-8.2) g/dL Albumin 3.7 (3.5-5.0) g/dL 01/08/19 01/08/19 01/08/19 Range/Units 13:15 13:15 13:15 WBC (3.8-10.6) k/uL RBC (4.30-5.90) m/uL Hgb (13.0-17.5) gm/dL Hct (39.0-53.0) % MCV (80.0-100.0) fL MCH (25.0-35.0) pg MCHC (31.0-37.0) g/dL RDW (11.5-15.5) % Plt Count (150-450) k/uL Neutrophils % % Lymphocytes % % Monocytes % % Eosinophils % % Basophils % % Neutrophils # (1.3-7.7) k/uL Lymphocytes # (1.0-4.8) k/uL Monocytes # (0-1.0) k/uL Eosinophils # (0-0.7) k/uL Basophils # (0-0.2) k/uL Hypochromasia Macrocytosis PT 13.7 H (9.0-12.0) sec INR 1.3 H (<1.2) APTT 30.5 H (22.0-30.0) sec VBG pH (7.31-7.41) VBG pCO2 (37-51) mmHg VBG HCO3 (24-28) mmol/L Sodium (137-145) mmol/L Potassium (3.5-5.1) mmol/L Chloride (98-107) mmol/L Carbon Dioxide (22-30) mmol/L Anion Gap mmol/L BUN (9-20) mg/dL Creatinine (0.66-1.25) mg/dL Est GFR (CKD-EPI)AfAm (>60 ml/min/1.73 sqM) Est GFR (CKD-EPI)NonAf (>60 ml/min/1.73 sqM) Glucose (74-99) mg/dL Calcium (8.4-10.2) mg/dL Magnesium (1.6-2.3) mg/dL Total Bilirubin (0.2-1.3) mg/dL AST (17-59) U/L ALT (21-72) U/L Alkaline Phosphatase (38-126) U/L Creatine Kinase (55-170) U/L CK-MB (CK-2) 1.2 (0.0-2.4) ng/mL Troponin I <0.012 (0.000-0.034) ng/mL NT-Pro-B Natriuret Pep 196 pg/mL Total Protein (6.3-8.2) g/dL Albumin (3.5-5.0) g/dL Disposition Clinical Impression: Respiratory failure, Hypoxia, Hypercarbia, Hyperkalemia Disposition: ADMITTED IP TO THIS HOSP Condition: Fair Referrals: Arpita Arguello MD [Primary Care Provider] - 1-2 days Decision Time: 15:52
[2019-01-08 13:20] LABS: Basophils % (A) 0 %; Eosinophils % (A) 0 %; HCT 39.6 % (39.0-53.0); HGB 12.1 gm/dL (13.0-17.5); Hypochromasia Marked; Lymphocytes # (A) 1.2 k/uL (1.0-4.8); Lymphocytes % (A) 12 %; MCH 30.9 pg (25.0-35.0); MCHC 30.6 g/dL (31.0-37.0); MCV 101.1 fL (80.0-100.0); Macrocytosis Slight; Mean Platelet Volume 6.9; Monocytes % (A) 9 %; Neutrophils % (A) 77 %; Platelet Count 263 k/uL (150-450); RBC 3.92 m/uL (4.30-5.90); RDW 13.3 % (11.5-15.5); WBC 10.4 k/uL (3.8-10.6)
[2019-01-08 13:28] LABS: INR 1.3 (<1.2); Partial Thromboplastin Time 30.5 sec (22.0-30.0); Prothrombin Time 13.7 sec (9.0-12.0)
[2019-01-08 13:29] LABS: Albumin 3.7 g/dL (3.5-5.0); Calcium 9.1 mg/dL (8.4-10.2); Magnesium 2.2 mg/dL (1.6-2.3); Potassium 5.7 mmol/L (3.5-5.1); Total Bilirubin 0.6 mg/dL (0.2-1.3); Total Protein 5.9 g/dL (6.3-8.2)
[2019-01-08 13:42] LABS: VBG PH 7.31 (7.31-7.41)
--- NOTE | 2019-01-08 13:50 | XR ---
EXAMINATION TYPE: XR chest 2V DATE OF EXAM: 01/08/2019 COMPARISON: 08/21/2019 HISTORY: Difficulty breathing TECHNIQUE: Frontal and lateral views of the chest are obtained. FINDINGS: Cardiomediastinal silhouette is slightly exaggerated in comparison the prior however there are lower lung volumes. Bibasilar faint opacities likely represent atelectasis given their dependent location and linear morphology. No sizable pneumothorax. No pleural effusion. Osseous structures are grossly intact. IMPRESSION: Hypoventilatory lungs in comparison to the prior with dependent likely subsegmental atel ectasis.
[2019-01-08 13:59] LABS: Creatine Kinase MB 1.2 ng/mL (0.0-2.4); Troponin I <0.012 ng/mL (0.000-0.034)
--- NOTE | 2019-01-08 14:02 | CT ---
EXAMINATION TYPE: CT brain wo con DATE OF EXAM: 01/08/2019 HISTORY: Altered mental status CT DLP: 1153.4 mGycm. Automated Exposure Control for Dose Reduction was Utilized. TECHNIQUE: CT scan of the head is performed without contrast. COMPARISON: None. FINDINGS: There is no acute intracranial hemorrhage or midline shift identified. There is diffuse v entricular and sulcal prominence consistent with diffuse age-related cerebral atrophy. There is low- attenuation in the periventricular white matter consistent with chronic small vessel ischemic change. Artifact from patient motion noted most prominent over the frontal lobes axial image 36 makes evalua tion of this level from optimal. There is 1.8 cm mucous retention cyst or polyp in the right maxillar y sinus seen best sagittal image 31. Otherwise paranasal sinuses are clear. Right lens is not well vi sualized. Left globe is intact. Completely opacified left mastoid air cells are seen. There is soft tissue signal surrounding middle ear ossicles. IMPRESSION: No acute intracranial hemorrhage or midline shift. Suboptimal study with mild diffuse ag e-related cerebral atrophy and chronic small vessel ischemic change noted. Possible left-sided mastoi ditis and middle ear infection, correlate clinically .
[2019-01-08] MEDS ORDERED: SODIUM CHLORIDE 0.9% 500 ML IV STA (14:25)
[2019-01-08] MEDS ORDERED: IPRATROPIUM-ALBUTEROL 3 ML NEB INHALATION STA (15:26)
[2019-01-08] MEDS ORDERED: DEXAMETHASONE SOD PHOSPHATE 10 MG/ML 1 ML VIAL IV STA (15:45)
[2019-01-08] MEDS: IPRATROPIUM-ALBUTEROL 3 ML NEB INHALATION SCH ×2 (16:44→20:01)
[2019-01-08 17:40] VITALS: BMI 34.8
[2019-01-08] MEDS: WARFARIN 10 MG TAB PO SCH (18:08)
[2019-01-08] MEDS ORDERED: TAMSULOSIN 0.4 MG CAP.ER.24H PO STA (19:47)
[2019-01-08] MEDS: ATORVASTATIN 20 MG TAB PO SCH (20:41)
[2019-01-08] MEDS: METOPROLOL SUCCINATE (ER) 25 MG TAB.ER.24H PO SCH (20:41)
[2019-01-08 21:23] LABS: Appearance,Urine Clear (Clear); Bilirubin,Urine Negative (Negative); Blood,Urine Negative (Negative); Color,Urine Yellow; Glucose,Urine (UA) Negative (Negative); Ketones,Urine Trace (Negative); Leukocyte Esterase,Urine Negative (Negative); Nitrite,Urine Negative (Negative); Protein,Urine Trace (Negative); Specific Gravity,Urine 1.017 (1.001-1.035); Urobilinogen,Urine <2.0 mg/dL (<2.0)
[2019-01-08] MEDS ORDERED: LORazepam 2 MG/ML INJ IV PRN ×3 (23:36)
[2019-01-09] MEDS ORDERED: TEMAZEPAM 15 MG CAP PO PRN (00:53)
[2019-01-09] MEDS ORDERED: HYDROcodone/APAP 5-325MG 1 EACH TAB PO PRN (00:53)
[2019-01-09] MEDS ORDERED: ACETAMINOPHEN TAB 500 MG TAB PO PRN (00:53)
[2019-01-09] MEDS ORDERED: LEVOFLOXACIN 500MG-D5W PMX 500 MG in DEXTROSE/WATER 1 100ML.BAG IVPB SCH (01:00)
[2019-01-09 06:14] LABS: Glucose,Whole Blood 125 mg/dL (75-99)
[2019-01-09] MEDS: INSULIN ASPART (NovoLOG) 100 UNIT/ML VIAL SQ SCH ×4 (06:20→20:41)
[2019-01-09] MEDS: PANTOPRAZOLE 40 MG TABLET PO SCH (06:24)
[2019-01-09] MEDS: methylPREDNISolone SOD SUCCI 125 MG/2 ML VIAL IV SCH ×4 (06:24→23:38)
[2019-01-09 07:58] LABS: INR 1.9 (<1.2)
[2019-01-09] MEDS: SPIRONOLACTONE 25 MG TAB PO SCH (08:27)
[2019-01-09] MEDS: THIAMINE 100 MG TAB PO SCH (08:27)
[2019-01-09] MEDS: TAMSULOSIN 0.4 MG CAP.ER.24H PO SCH (08:27)
[2019-01-09] MEDS: METOPROLOL SUCCINATE (ER) 25 MG TAB.ER.24H PO SCH ×2 (08:27→20:40)
--- NOTE | 2019-01-09 08:27 | HP ---
HISTORY AND PHYSICAL DATE OF SERVICE: 01/08/2019 CHIEF COMPLAINT: Shortness of breath. HISTORY OF PRESENT ILLNESS: This 68-year-old gentleman with a past medical history of multiple medical problems including atrial ablation CHF, COPD, history of hypertension, hyperlipidemia, DJD, history of chronic hypoxic respiratory failure, nicotine dependence, being followed by Dr. Arguello in the outpatient setting, apparently was at home by himself. The patient's left to [place] for animal auction. The patient gets frequent visits from the family and the daughter went to see him and the patient was found to be confused and patient was on the ground and was not without his oxygen. The patient was taken to [facility] and was admitted to the hospital for further evaluation. Patient is extremely hard of hearing. On admission he patient was found to have features of hypoxia with oxygen in the low 90s and 89% on nasal cannula. The patient apparently also had history of alcohol intake, but not recently according to him. The chest x-ray showed hypoventilatory lungs and as well as some atelectatic changes. There is no history of fever, rigors. No history of headache, loss of consciousness, seizures. Patient is mildly confused. The patient had chronic small vessel ischemia in the CT scan. PAST MEDICAL HISTORY: History of atrial ablation, history of CHF, COPD, hypertension, hyperlipidemia, DJD, history of chronic hypoxic respiratory failure. MEDICATIONS: Prior to admission include: 1. Coumadin 7.5 mg p.o. Friday, and Friday, 10 mg on Friday, Friday, Friday, and Friday. 2. Aldactone 25 mg p.o. daily. 3. Toprol XL 75 mg p.o. b.i.d. 4. Zestril 5 mg. 5. Lasix 20 mg b.i.d. 6. Breo Ellipta / 1 puff b.i.d. 7. Lipitor 20 mg daily. 8. Ventolin 2 to 3 mL t.i.d. ALLERGIES: None. FAMILY HISTORY: Family history of colon cancer, CML in the family. SOCIAL HISTORY: History of smoking, history of alcohol. REVIEW OF SYSTEMS: ENT: Diminished hearing and diminished vision. Cardio system: No angina. RESPIRATORY: As mentioned earlier. GI no nausea. : No dysuria. NERVOUS SYSTEM: No numbness or weakness. ALLERGY/IMMUNOLOGY: No asthma or hayfever. MUSCULOSKELETAL: As mentioned earlier. HEMATOLOGY/ONCOLOGY: As mentioned earlier. ENDOCRINE: No history of diabetes or hypothyroidism. CONSTITUTIONAL: As mentioned earlier. DERMATOLOGY: Negative. RHEUMATOLOGY: Negative. PSYCHIATRY: As mentioned earlier. PHYSICAL EXAMINATION: Alert and oriented x2. Pulse is 106. Blood pressure 140/89, respiration 2s, temp 98.9, pulse ox 89 percent on 4 L. HEENT: Conjunctivae normal. Oral mucosa moist. NECK is no jugular venous distention. No carotid bruit. No lymph nodes enlargement. CARDIOVASCULAR SYSTEM: S1, S2 muffled. RESPIRATORY: Breath sounds diminished in the bases. Bilateral scattered rhonchi and crackles. ABDOMEN: Soft, obese, nontender. Legs are no edema. No swelling. CENTRAL NERVOUS SYSTEM: Higher functions as mentioned earlier. Moves all four extremities. No focal deficits. Lymphatics: No lymph nodes palpable in the neck, axillae or groin. SKIN: No ulcers, rashes or bleeding. JOINTS: No active deforming arthropathy. LAB STUDIES: WBC 11.1, hemoglobin 12.1, MCV 101.1. Otherwise ABGs noted. Sodium 130, potassium 5.7, creatinine is 1.73. ASSESSMENT: 1. Chronic obstructive pulmonary disease acute exacerbation with acute purulent tracheobronchitis with acute hypoxic respiratory failure. 2. Change in mental status, acute metabolic encephalopathy, multifactorial. 3. Rule out delirium tremens. 4. Mild acute renal failure with dehydration. 5. Hyperkalemia secondary to renal failure. 6. Anemia macrocytic possibly nutritional alcoholic. 7. History atrial fibrillation. 8. History of congestive heart failure. 9. Chronic obstructive pulmonary disease. 10.History of hypertension. 11.History of hyperlipidemia. 12.History of degenerative joint disease. 13.History of pneumonia. 14.History of chronic hypoxic respiratory failure. 15.History of ablation. 16.History of continued ongoing nicotine dependence. RECOMMENDATIONS AND DISCUSSION: This 68-year-old gentleman who presented with multiple medical issues, at this time I recommend to continue current medications, management and symptomatic treatment. We will optimize bronchodilators, pulmonary consultation with Dr. Rowley. Resume the home medications and prophylaxis and DVT precautions. Empiric antibiotics. We will get licensed master social worker consultation for evaluate the home situation. Otherwise, overall prognosis guarded because of multiple complex medical issues. Further recommendations to follow. A copy of dictation being forwarded to Dr. Arguello, who is the primary physician. MMODL / IJN: [id number] / MTDD
[2019-01-09] MEDS: FUROSEMIDE 20 MG TAB PO SCH (08:28)
[2019-01-09] MEDS: LISINOPRIL 5 MG TAB PO SCH (08:28)
[2019-01-09] MEDS: NICOTINE 14MG/24HR PATCH TRANSDERM SCH (08:28)
[2019-01-09] MEDS: IPRATROPIUM-ALBUTEROL 3 ML NEB INHALATION SCH ×4 (09:03→20:44)
[2019-01-09] MEDS: SYMBICORT 160-4.5 MCG INHALER INHALATION SCH ×2 (09:04→20:44)
[2019-01-09 12:01] LABS: Glucose,Whole Blood 133 mg/dL (75-99)
--- NOTE | 2019-01-09 12:41 | P.CNPUL ---
History of Present Illness Consult date: 01/09/19 Requesting physician: Kylee Scott Reason for consult: dyspnea, COPD Chief complaint: Altered mental status History of present illness: This is a very pleasant 68-year-old gentleman who follows with Dr. Arguello as his primary care physician. He has a history of hyperlipidemia, atrial fibrillation anticoagulated with warfarin, heart failure, hypertension, degenerative joint disease. He also has a history of significant chronic obstructive pulmonary disease, oxygen dependent and follows with Dr. Quarles in our office for the same. He also has chronic and ongoing tobacco dependence. He is maintained on Breo and albuterol. Yesterday his daughter stopped to visit him and found him up in a recliner with his oxygen off. He was difficult to arouse. He was shaking. His pulse ox at that time was 69%. Unsure as to how long he had been without it. She also states she noted his medications from the day before were there and had not been taken. Computed tomography scan of the brain showed no acute intracranial hemorrhage or midline shift. His INR was subtherapeutic on admission, 1.3. Venous blood gases revealed a pCO2 of 83. Influenza screen was negative. Urine was negative. Troponin negative. Creatinine 1.73. White count 10.4. Hemoglobin 12.1. He is seen today in consultation on the selective care unit. He is currently resting quite comfortably in bed. His daughter is at the bedside and provides much of the information. He has been more alert and oriented. He is currently maintaining good O2 saturations in the 90s on 4 L/m per nasal cannula. He is on 2 L at home. He's been afebrile. Chest x-ray reveals bilateral subsegmental atelectasis. He has been initiated on DuoNeb inhalations, Symbicort, IV Solu-Medrol. Empiric antibiotics in the form of Levaquin. NicoDerm patch is in place. Review of Systems REVIEW OF SYSTEMS: CONSTITUTIONAL: Denies any recent significant weight loss or weight gain. EYES: Denies change in vision. EARS, NOSE, MOUTH, THROAT: Denies headaches, denies sore throat. CARDIOVASCULAR: Denies chest pain, palpitations or syncopal episodes. RESPIRATORY: Denies shortness of breath, cough, congestion or hemoptysis. GASTROINTESTINAL: Denies change in appetite, denies abdominal pain GENITOURINARY: Denies hematuria, denies infections. MUSKULOSKELETAL: Denies pain, denies swelling. INTEGUMENTARY: Denies rash, denies eczema. NEUROLOGICAL: Altered mental status secondary to hypoxemia PSYCHIATRIC: Denies anxiety, denies depression. HEMATOLOGIC/LYMPHATIC: Denies anemia, denies enlarged lymph nodes. Past Medical History Past Medical History: Atrial Fibrillation, Heart Failure, COPD, Eye Disorder, Hyperlipidemia, Hypertension, Osteoarthritis (OA), Pneumonia Additional Past Medical History / Comment(s): COPD,02 2 liters n/c at hs, previous history of acute respiratory failure related to COPD exacerbation/vented, glaucoma, obesity, chronic atrial fibrillation/flutter,wears contact lense rt eye and also weras glasses History of Any Multi-Drug Resistant Organisms: None Reported Past Surgical History: Ablation Additional Past Surgical History / Comment(s): right eye surgery.colonoscopy Past Anesthesia/Blood Transfusion Reactions: No Reported Reaction Past Psychological History: No Psychological Hx Reported Smoking Status: Current every day smoker Past Alcohol Use History: None Reported Additional Past Alcohol Use History / Comment(s): HX OF 52 YR SMOKER, USED TO SMOKE 2 PPD down to 1/2 ppd. Past Drug Use History: None Reported - Past Family History Brother(s) Family Medical History: Cancer Additional Family Medical History / Comment(s): CMML Medications and Allergies Home Medications Medication Instructions Recorded Confirmed Type Lisinopril [Zestril] 5 mg PO DAILY #30 tab 11/07/16 01/08/19 Rx Spironolactone [Aldactone] 25 mg PO DAILY #30 tab 11/07/16 01/08/19 Rx Atorvastatin [Lipitor] 20 mg PO HS 05/02/17 01/08/19 History Fluticasone/Vilanterol [Breo 1 puff INHALATION RT-BID 05/02/17 01/08/19 History Ellipta 200-25 Mcg INH] Furosemide [Lasix] 20 mg PO DAILY 05/02/17 01/08/19 History Albuterol Nebulized [Ventolin 3 ml INHALATION RT-TID 08/21/18 01/08/19 History Nebulized] Metoprolol Succinate (ER) [Toprol 75 mg PO BID 01/08/19 01/08/19 History Xl] Warfarin [Coumadin] 7.5 mg PO TUTHSA 01/08/19 01/08/19 History Warfarin [Coumadin] 10 mg PO SUMOWEFR 01/08/19 01/08/19 History Allergies Allergy/AdvReac Type Severity Reaction Status Date / Time No Known Allergies Allergy Verified 01/08/19 12:28 Physical Exam Vitals: Vital Signs Temp Pulse Pulse Resp BP BP Pulse Ox 01/09/19 09:17 100 01/09/19 09:07 100 01/09/19 08:00 99.4 F 99 20 142/78 93 L 01/09/19 04:00 98.3 F 109 H 19 162/68 90 L 01/09/19 00:00 99.2 F 104 H 18 125/75 89 L 01/08/19 20:11 101 H 16 01/08/19 20:01 99 18 01/08/19 20:00 99.3 F 104 H 16 120/71 90 L 01/08/19 17:20 100.2 F H 103 H 20 133/70 90 L 01/08/19 16:52 99 F 01/08/19 16:42 101 H 22 125/65 90 L 01/08/19 16:02 101 H 18 01/08/19 15:52 94 18 01/08/19 15:42 106 H 22 145/89 89 L 01/08/19 14:46 100 24 120/62 93 L Intake and Output 01/08/19 01/09/19 01/09/19 22:59 06:59 14:59 Output Total 925 Balance -925 Output: Urine 925 Other: Voiding Method Indwelling Catheter Indwelling Catheter Indwelling Catheter Weight 113.9 kg GENERAL EXAM: Alert, active, comfortable in no apparent distress. On 4 L nasal cannula HEAD: Normocephalic. EYES: Normal reaction of pupils, equal size. NOSE: Clear with pink turbinates. THROAT: No erythema or exudates. NECK: No masses, no JVD. CHEST: No chest wall deformity. LUNGS: Equal air entry with no crackles, wheeze, rhonchi or dullness. CVS: S1 and S2 normal with no audible murmur, regular rhythm. ABDOMEN: No hepatosplenomegaly, normal bowel sounds, no guarding or rigidity. SPINE: No scoliosis or deformity SKIN: No rashes CENTRAL NERVOUS SYSTEM: No focal deficits, tone is normal in all 4 extremities. EXTREMITIES: There is no peripheral edema. No clubbing, no cyanosis. Peripheral pulses are intact. Results - Laboratory Findings CBC and BMP: 01/08/19 13:15 01/08/19 13:15 PT/INR, D-dimer PT 19.0 sec (9.0-12.0) H 01/09/19 07:21 INR 1.9 (<1.2) H 01/09/19 07:21 Abnormal lab findings: Abnormal Labs 01/08/19 01/08/19 01/08/19 13:00 13:15 13:15 RBC 3.92 L Hgb 12.1 L MCV 101.1 H MCHC 30.6 L Neutrophils # 8.0 H PT INR APTT VBG pCO2 83 H* VBG HCO3 40 H Potassium 5.7 H Chloride 90 L Carbon Dioxide 38 H BUN 41 H Creatinine 1.73 H Glucose 115 H POC Glucose (mg/dL) Creatine Kinase 48 L Total Protein 5.9 L Urine Protein Urine Ketones 01/08/19 01/08/19 01/09/19 13:15 21:10 06:12 RBC Hgb MCV MCHC Neutrophils # PT 13.7 H INR 1.3 H APTT 30.5 H VBG pCO2 VBG HCO3 Potassium Chloride Carbon Dioxide BUN Creatinine Glucose POC Glucose (mg/dL) 125 H Creatine Kinase Total Protein Urine Protein Trace H Urine Ketones Trace H 01/09/19 01/09/19 07:21 11:57 RBC Hgb MCV MCHC Neutrophils # PT 19.0 H INR 1.9 H APTT VBG pCO2 VBG HCO3 Potassium Chloride Carbon Dioxide BUN Creatinine Glucose POC Glucose (mg/dL) 133 H Creatine Kinase Total Protein Urine Protein Urine Ketones - Diagnostic Findings Chest x-ray: image reviewed Assessment and Plan Assessment: Impression: #1 Altered mental status secondary to acute hypoxia secondary to being off home oxygen. #2 Acute on chronic hypoxemic/hypercapnic respiratory failure secondary to an acute exacerbation of chronic obstructive pulmonary disease. #3 Chronic and ongoing tobacco dependence. #4. Paroxysmal atrial fibrillation, anticoagulated with warfarin, subtherapeuti c on admission. #5 History of congestive heart failure. #6 Hypertension. #7 Hyperlipidemia. #8 Degenerative joint disease. Plan: The patient was seen and evaluated by Dr. Rowley. Chest x-ray and labs were reviewed. Doubt any acute pneumonia. Remains on empiric antibiotics in the form of Levaquin. We'll continue his treatment for his COPD exacerbation and hypoxic/hypercapnic respiratory failure. He is again educated regarding the importance of complete smoking cessation. Educated regarding the importance of medication compliance. We will continue to follow and make further recommend ations based on his clinical status. I, the cosigning physician, performed a history & physical examination of the patient. Lungs sounds bilateral end expiratory wheeze, diminished. Maintaining good O2 saturations in the 90s on 4 L/m per nasal cannula. I discussed the assessment and plan of care with my nurse practitioner, Kaycee Yoo. I attest to the above note as dictated by her. Time with Patient: Greater than 30
[2019-01-09 17:17] LABS: Glucose,Whole Blood 144 mg/dL (75-99)
[2019-01-09] MEDS ORDERED: WARFARIN 7.5 MG TAB PO SCH (18:00)
[2019-01-09 19:53] LABS: Glucose,Whole Blood 153 mg/dL (75-99)
[2019-01-09] MEDS: ATORVASTATIN 20 MG TAB PO SCH (20:40)
[2019-01-09] MEDS: LEVOFLOXACIN 250MG-D5W PMX 250 MG in DEXTROSE/WATER 1 50ML.BAG IVPB SCH (23:38)
--- NOTE | 2019-01-10 00:21 | PN ---
PROGRESS NOTE DATE OF SERVICE: 01/09/2019 This is a 68-year-old gentleman who was admitted with shortness of breath with COPD exacerbation as well as hypoxic respiratory failure. Patient also confused. The patient has change in mental status. Patient also had possibly history of previous alcohol intake. Pulmonary Dr. Rowley is following the patient closely. No chest pain. No palpitations. PAST MEDICAL HISTORY: Reviewed. REVIEW OF SYSTEMS: CARDIOVASCULAR: None. RESPIRATORY: As mentioned earlier. GI: As mentioned earlier. CURRENT MEDICATIONS: 1. Tylenol 500 mg q.6h p.r.n. 2. Rumney 5 mg q.p.m. 3. DuoNeb q.i.d. and p.r.n. 4. Lipitor 10 mg q.h.s. 5. Symbicort puffs b.i.d. 6. Lasix 20 mg. 7. NovoLog to scale. 8. Levaquin 250 mg IV daily. 9. Zestril 5 mg p.o. daily. 10.Ativan p.r.n. 11.Solu-Medrol 60 IV q.6 hours. 12.Toprol-XL. 13.Habitrol 14. 14.Protonix. 15.Aldactone. 16.Flomax. 17.Vitamin B1. 18.Coumadin. PHYSICAL EXAMINATION: Alert and oriented x2. Pulse is 100, blood pressure 100/66, respirations 19, temperature 98.2, pulse ox 98% on 4 L. HEENT: Conjunctivae normal. NECK: No JVD. CARDIAC: S1, S2 muffled. RESPIRATORY: Diminished breath sounds at the bases. Bilateral scattered rhonchi. Expiratory wheezing also present. ABDOMEN: Soft, nontender. LEGS: No edema, no swelling. NERVOUS SYSTEM: No focal deficits. LABS: INR 1.9. Other labs are noted. ASSESSMENT: 1. Chronic obstructive pulmonary disease exacerbation with acute purulent tracheobronchitis with acute hypoxic respiratory failure. 2. Change in mental status, acute metabolic encephalopathy multifactorial. 3. Rule out delirium tremens. 4. Mild acute renal failure with dehydration with possible prerenal renal failure. 5. Hyperkalemia secondary to renal failure. 6. Anemia, macrocytic, possibly secondary to alcohol and nutrition. 7. History of atrial fibrillation. 8. History of congestive heart failure. 9. Chronic obstructive pulmonary disease. 10.Hypertension. 11.Hyperlipidemia. 12.History of DJD. 13.History of pneumonia. 14.History of chronic hypoxic respiratory failure. 15.History of ablation. 16.History of continued ongoing nicotine dependence. RECOMMENDATIONS AND DISCUSSION: Recommend to continue current medication, continue symptomatic treatment. Otherwise, at this time I recommend continue with antibiotics. Continue with bronchodilators. Continue with steroids. Continue with the rest of the medications. Overall prognosis guarded because of multiple complex medical issues and further recommendations to follow. Will closely follow with Dr. Rowley. LUCIAN / HUGHN: [id number] / JONN
[2019-01-10 06:05] LABS: Glucose,Whole Blood 179 mg/dL (75-99)
[2019-01-10] MEDS: methylPREDNISolone SOD SUCCI 125 MG/2 ML VIAL IV SCH ×3 (06:41→18:01)
[2019-01-10] MEDS: PANTOPRAZOLE 40 MG TABLET PO SCH (06:41)
[2019-01-10] MEDS: INSULIN ASPART (NovoLOG) 100 UNIT/ML VIAL SQ SCH ×4 (06:41→20:40)
[2019-01-10 07:56] LABS: Basophils % (A) 0 %; Eosinophils # (A) 0.1 k/uL (0-0.7); Eosinophils % (A) 1 %; HCT 36.1 % (39.0-53.0); HGB 11.3 gm/dL (13.0-17.5); Hypochromasia Slight; Lymphocytes # (A) 0.5 k/uL (1.0-4.8); Lymphocytes % (A) 3 %; MCH 30.9 pg (25.0-35.0); MCHC 31.3 g/dL (31.0-37.0); MCV 98.5 fL (80.0-100.0); Mean Platelet Volume 7.5; Monocytes # (A) 0.7 k/uL (0-1.0); Monocytes % (A) 4 %; Neutrophils # (A) 14.8 k/uL (1.3-7.7); Neutrophils % (A) 92 %; Platelet Count 289 k/uL (150-450); RBC 3.66 m/uL (4.30-5.90); RDW 14.1 % (11.5-15.5); WBC 16.2 k/uL (3.8-10.6)
[2019-01-10] MEDS: IPRATROPIUM-ALBUTEROL 3 ML NEB INHALATION SCH ×4 (08:01→20:49)
[2019-01-10] MEDS: SYMBICORT 160-4.5 MCG INHALER INHALATION SCH ×2 (08:02→20:49)
[2019-01-10 08:06] LABS: INR 2.4 (<1.2); Prothrombin Time 23.7 sec (9.0-12.0)
[2019-01-10 08:10] LABS: Calcium 9.4 mg/dL (8.4-10.2)
[2019-01-10] MEDS: METOPROLOL SUCCINATE (ER) 25 MG TAB.ER.24H PO SCH ×2 (09:19→20:37)
[2019-01-10] MEDS: TAMSULOSIN 0.4 MG CAP.ER.24H PO SCH (09:19)
[2019-01-10] MEDS: NICOTINE 14MG/24HR PATCH TRANSDERM SCH (09:19)
[2019-01-10] MEDS: LISINOPRIL 5 MG TAB PO SCH (09:20)
[2019-01-10] MEDS: THIAMINE 100 MG TAB PO SCH (09:20)
[2019-01-10] MEDS: FUROSEMIDE 20 MG TAB PO SCH ×2 (09:20→18:01)
[2019-01-10] MEDS: SPIRONOLACTONE 25 MG TAB PO SCH (09:20)
[2019-01-10 11:56] LABS: Glucose,Whole Blood 188 mg/dL (75-99)
--- NOTE | 2019-01-10 12:09 | P.PN ---
Subjective Progress Note Date: 01/10/19 Principal diagnosis: Altered mental status secondary Hypoxic/hypercapnic respiratory failure This is a very pleasant 68-year-old gentleman who follows with Dr. Arguello as his primary care physician. He has a history of hyperlipidemia, atrial fibrillation anticoagulated with warfarin, heart failure, hypertension, degenerative joint disease. He also has a history of significant chronic obstructive pulmonary disease, oxygen dependent and follows with Dr. Quarles in our office for the same. He also has chronic and ongoing tobacco dependence. He is maintained on Breo and albuterol. Yesterday his daughter stopped to visit him and found him up in a recliner with his oxygen off. He was difficult to arouse. He was shaking. His pulse ox at that time was 69%. Unsure as to how long he had been without it. She also states she noted his medications from the day before were there and had not been taken. Computed tomography scan of the brain showed no acute intracranial hemorrhage or midline shift. His INR was subtherapeutic on admission, 1.3. Venous blood gases revealed a pCO2 of 83. Influenza screen was negative. Urine was negative. Troponin negative. Creatinine 1.73. White count 10.4. Hemoglobin 12.1. He is seen today in consultation on the selective care unit. He is currently resting quite comfortably in bed. His daughter is at the bedside and provides much of the information. He has been more alert and oriented. He is currently maintaining good O2 saturations in the 90s on 4 L/m per nasal cannula. He is on 2 L at home. He's been afebrile. Chest x-ray reveals bilateral subsegmental atelectasis. He has been initiated on DuoNeb inhalations, Symbicort, IV Solu-Medrol. Empiric antibiotics in the form of Levaquin. NicoDerm patch is in place. The patient is seen today 01/10/2019 in follow-up on the selective care unit. He is much more awake and alert today. Denies any worsening shortness of breath, cough or congestion. He is maintaining O2 saturations in the low 90s on 4 L/m per nasal cannula. He is afebrile. Hemodynamically stable. White count 16.2. Hemoglobin 11.3. INR 2.4. Creatinine 1.07. Bicarb 38. Objective - Vital Signs Vital signs: Vital Signs Temp 98.2 F 01/10/19 08:00 Pulse 92 01/10/19 11:41 Resp 18 01/10/19 08:00 BP 123/62 01/10/19 08:00 Pulse Ox 90 L 01/10/19 08:00 Intake & Output 01/09/19 01/10/19 01/10/19 18:59 06:59 18:59 Intake Total 862 128 Output Total 1150 Balance 862 -1150 128 Weight 104 kg Intake: IV 10 Invasive Line 1 10 Intake, IV Titration 0 Amount Levofloxacin 250Mg-D5w 0 Pmx 250 mg In Dextrose/ Water 1 50ml.bag @ 50 mls /hr IVPB Q24H [facility] Rx#: [id number] Oral 862 118 Output: Urine 1150 Other: Voiding Method Indwelling Catheter Indwelling Catheter - Exam GENERAL EXAM: Alert, active, comfortable in no apparent distress. On 4 L nasal cannula HEAD: Normocephalic. EYES: Normal reaction of pupils, equal size. NOSE: Clear with pink turbinates. THROAT: No erythema or exudates. NECK: No masses, no JVD. CHEST: No chest wall deformity. LUNGS: Equal air entry with bilateral end expiratory wheeze, diminished CVS: S1 and S2 normal with no audible murmur, regular rhythm. ABDOMEN: No hepatosplenomegaly, normal bowel sounds, no guarding or rigidity. SPINE: No scoliosis or deformity SKIN: No rashes CENTRAL NERVOUS SYSTEM: No focal deficits, tone is normal in all 4 extremities. EXTREMITIES: There is no peripheral edema. No clubbing, no cyanosis. Peripheral pulses are intact. - Labs CBC & Chem 7: 01/10/19 07:34 01/10/19 07:34 Labs: Abnormal Lab Results - Last 24 Hours (Table) 01/09/19 01/09/19 01/10/19 Range/Units 17:06 19:50 06:04 WBC (3.8-10.6) k/uL RBC (4.30-5.90) m/uL Hgb (13.0-17.5) gm/dL Hct (39.0-53.0) % Neutrophils # (1.3-7.7) k/uL Lymphocytes # (1.0-4.8) k/uL PT (9.0-12.0) sec INR (<1.2) Chloride (98-107) mmol/L Carbon Dioxide (22-30) mmol/L BUN (9-20) mg/dL Glucose (74-99) mg/dL POC Glucose (mg/dL) 144 H 153 H 179 H (75-99) mg/dL 01/10/19 01/10/19 01/10/19 Range/Units 07:34 07:34 07:34 WBC 16.2 H (3.8-10.6) k/uL RBC 3.66 L (4.30-5.90) m/uL Hgb 11.3 L (13.0-17.5) gm/dL Hct 36.1 L (39.0-53.0) % Neutrophils # 14.8 H (1.3-7.7) k/uL Lymphocytes # 0.5 L (1.0-4.8) k/uL PT 23.7 H (9.0-12.0) sec INR 2.4 H (<1.2) Chloride 94 L (98-107) mmol/L Carbon Dioxide 38 H (22-30) mmol/L BUN 38 H (9-20) mg/dL Glucose 124 H (74-99) mg/dL POC Glucose (mg/dL) (75-99) mg/dL 01/10/19 Range/Units 11:33 WBC (3.8-10.6) k/uL RBC (4.30-5.90) m/uL Hgb (13.0-17.5) gm/dL Hct (39.0-53.0) % Neutrophils # (1.3-7.7) k/uL Lymphocytes # (1.0-4.8) k/uL PT (9.0-12.0) sec INR (<1.2) Chloride (98-107) mmol/L Carbon Dioxide (22-30) mmol/L BUN (9-20) mg/dL Glucose (74-99) mg/dL POC Glucose (mg/dL) 188 H (75-99) mg/dL Assessment and Plan Assessment: Impression: #1 Altered mental status secondary to acute hypoxia secondary to being off home oxygen. #2 Acute on chronic hypoxemic/hypercapnic respiratory failure secondary to an acute exacerbation of chronic obstructive pulmonary disease. #3 Chronic and ongoing tobacco dependence. #4 Paroxysmal atrial fibrillation, anticoagulated with warfarin, subtherapeutic on admission. Currently 2.4. #5 History of congestive heart failure. #6 Hypertension. #7 Hyperlipidemia. #8 Degenerative joint disease. Plan: The patient was seen and evaluated by Dr. Rowley. We'll continue his treatment for his COPD exacerbation and hypoxic/hypercapnic respiratory failure. He is again educated regarding the importance of complete smoking cessation. Educated regarding the importance of medication compliance. Probable home in the a.m. We will continue to follow and make further recommendations based on his clinical status. I, the cosigning physician, performed a history & physical examination of the patient. Lungs sounds bilateral end expiratory wheeze, diminished. Maintaining good O2 saturations in the 90s on 4 L/m per nasal cannula. I discussed the assessment and plan of care with my nurse practitioner, Kaycee Yoo. I attest to the above note as dictated by her.
[2019-01-10 16:47] LABS: Glucose,Whole Blood 123 mg/dL (75-99)
[2019-01-10] MEDS: WARFARIN 10 MG TAB PO SCH (18:01)
[2019-01-10 18:09] VITALS: RESP 20
[2019-01-10] MEDS: ATORVASTATIN 20 MG TAB PO SCH (20:37)
[2019-01-10 20:38] LABS: Glucose,Whole Blood 126 mg/dL (75-99)
[2019-01-10] MEDS: FOLIC ACID 1 MG TAB PO SCH (23:22)
[2019-01-10] MEDS: methylPREDNISolone SOD SUCCI 40 MG/ML 1 ML VIAL IV SCH (23:22)
--- NOTE | 2019-01-10 23:37 | PN ---
PROGRESS NOTE DATE OF SERVICE: 01/10/2019 This 68-year-old gentleman who was admitted with COPD exacerbation acute purulent tracheobronchitis also acute hypoxic respiratory failure, the patient being closely monitored. Pulmonary is following the patient. No chest pain. No palpitations. No fever. The patient is mildly confused. Patient also tremulous at this time. PAST MEDICAL HISTORY: Reviewed. REVIEW OF SYSTEMS: Cardiovascular: No angina or palpitations. RESPIRATION: As mentioned earlier. GI: As mentioned earlier. : No dysuria. CENTRAL NERVOUS SYSTEM: No focal deficits. CURRENT MEDICATIONS ARE: Reviewed and include: 1. Tylenol 500 mg q.6h p.r.n. 2. Raven 5 mg q.i.d. 3. DuoNeb q.i.d. 4. Lipitor. 5. Symbicort. 6. Lasix. 7. Levaquin. 8. Zestril 5 mg daily. 9. Ativan p.r.n. 10.Solu-Medrol 60 IV q.6h. 11.Protonix. 12.Aldactone. 13.Vitamin B1. 14.Coumadin. PHYSICAL EXAM: Patient is alert, oriented x3. Pulse 99, blood pressure 100/60, respiration 20, temperature 98.2, pulse ox 98% on 4 L. HEENT: Conjunctivae normal. Neck is no jugular venous distention. Cardiovascular system: S1, S2 muffled. Respirations: Breath sounds diminished in the bases. Bilateral scattered rhonchi and crackles. Expiratory wheezing also present. ABDOMEN: Soft, nontender. No mass palpable. Legs: No edema, no swelling. Central nervous system: Diffusely weak and tremors present. Skin: No ulcer, no rash, no bleeding. LAB STUDIES: WBC 16.2, hemoglobin 11.3, INR is 2.4. Sodium 137, potassium 7, the glucose 124. ASSESSMENT: 1. Chronic obstructive pulmonary disease acute exacerbation with acute purulent tracheobronchitis with acute hypoxic respiratory failure. 2. Change in mental status, acute metabolic encephalopathy multifactorial. 3. Diffuse tremors. 4. No history of EtOH per family. 5. Mild acute renal failure with dehydration with possible prerenal renal failure. 6. Hyperkalemia, secondary to renal failure. 7. Anemia microcytic possibly secondary to malnutrition. 8. History of atrial fibrillation. 9. History of congestive heart failure. 10.Chronic obstructive pulmonary disease. 11.Hypertension. 12.Hyperlipidemia. 13.History of degenerative joint disease. 14.History of pneumonia. 15.History of chronic hypoxic respiratory failure. 16.History of continued ongoing nicotine dependence. RECOMMENDATIONS AND DISCUSSION: Recommend to continue current medications, current monitoring, management and symptomatic treatment. I recommend p.r.n. Ativan. Otherwise, I would also recommend continue the bronchodilators. Continue the rest of medications. Supplement vitamins. The patient is on high-dose IV steroids. We will continue to taper the steroids also. See orders for details. Further recommendations to follow. Discussed with the family. PT/OT evaluation. MMODL / IJN: [id number] /
[2019-01-11] MEDS: MULTIVITAMINS, THERA 1 EACH TAB PO SCH ×2 (00:39→08:38)
[2019-01-11] MEDS: LEVOFLOXACIN 250MG-D5W PMX 250 MG in DEXTROSE/WATER 1 50ML.BAG IVPB SCH (02:21)
[2019-01-11 06:08] LABS: Glucose,Whole Blood 119 mg/dL (75-99)
[2019-01-11] MEDS: INSULIN ASPART (NovoLOG) 100 UNIT/ML VIAL SQ SCH ×2 (06:08→12:07)
[2019-01-11] MEDS: PANTOPRAZOLE 40 MG TABLET PO SCH (06:37)
[2019-01-11] MEDS: IPRATROPIUM-ALBUTEROL 3 ML NEB INHALATION SCH ×2 (06:58→10:38)
[2019-01-11] MEDS: SYMBICORT 160-4.5 MCG INHALER INHALATION SCH (06:58)
[2019-01-11 07:13] LABS: Potassium 5.3 mmol/L (3.5-5.1)
[2019-01-11 07:18] LABS: INR 2.7 (<1.2)
[2019-01-11 07:22] LABS: Basophils % (A) 0 %; Eosinophils % (A) 0 %; HCT 35.9 % (39.0-53.0); Hypochromasia Slight; Lymphocytes # (A) 0.6 k/uL (1.0-4.8); Lymphocytes % (A) 3 %; MCH 30.4 pg (25.0-35.0); MCHC 30.6 g/dL (31.0-37.0); MCV 99.3 fL (80.0-100.0); Mean Platelet Volume 7.2; Monocytes # (A) 0.8 k/uL (0-1.0); Monocytes % (A) 5 %; Neutrophils # (A) 14.5 k/uL (1.3-7.7); Neutrophils % (A) 91 %; Platelet Count 281 k/uL (150-450); RBC 3.61 m/uL (4.30-5.90); RDW 13.7 % (11.5-15.5)
[2019-01-11 08:38] VITALS: TEMP 98.2
[2019-01-11] MEDS: FUROSEMIDE 20 MG TAB PO SCH (08:38)
[2019-01-11] MEDS: THIAMINE 100 MG TAB PO SCH (08:38)
[2019-01-11] MEDS: METOPROLOL SUCCINATE (ER) 25 MG TAB.ER.24H PO SCH (08:38)
[2019-01-11] MEDS: FOLIC ACID 1 MG TAB PO SCH (08:38)
[2019-01-11] MEDS: TAMSULOSIN 0.4 MG CAP.ER.24H PO SCH (08:38)
[2019-01-11] MEDS: NICOTINE 14MG/24HR PATCH TRANSDERM SCH (08:38)
[2019-01-11] MEDS: methylPREDNISolone SOD SUCCI 40 MG/ML 1 ML VIAL IV SCH (08:38)
[2019-01-11 11:49] LABS: Glucose,Whole Blood 105 mg/dL (75-99)
[2019-01-11] MEDS: LISINOPRIL 5 MG TAB PO SCH (12:07)
[2019-01-11] MEDS: SPIRONOLACTONE 25 MG TAB PO SCH (12:07)
[2019-01-11 12:13] VITALS: BP 119/65
[2019-01-11 13:19] LABS: ABG Base Excess 10.8 mmol/L; ABG HCO3 36 mmol/L (21-25); ABG Oxygen Saturation 90.2 % (94-97); ABG PCO2 56 mmHg (35-45); ABG PH 7.41 (7.35-7.45); ABG TCO2 37 mmol/L (19-24)
[2019-01-11 13:22] LABS: ABG PO2 58 mmHg (83-108)
[2019-01-11 15:45] VITALS: PULSE 80
--- NOTE | 2019-01-11 15:45 | P.PN ---
Subjective Progress Note Date: 01/11/19 Principal diagnosis: Altered mental status secondary to hypoxic/hypercapnic respiratory failure This is a very pleasant 68-year-old gentleman who follows with Dr. Arguello as his primary care physician. He has a history of hyperlipidemia, atrial fibrillation anticoagulated with warfarin, heart failure, hypertension, degenerative joint disease. He also has a history of significant chronic obstructive pulmonary disease, oxygen dependent and follows with Dr. Quarles in our office for the same. He also has chronic and ongoing tobacco dependence. He is maintained on Breo and albuterol. Yesterday his daughter stopped to visit him and found him up in a recliner with his oxygen off. He was difficult to arouse. He was shaking. His pulse ox at that time was 69%. Unsure as to how long he had been without it. She also states she noted his medications from the day before were there and had not been taken. Computed tomography scan of the brain showed no acute intracranial hemorrhage or midline shift. His INR was subtherapeutic on admission, 1.3. Venous blood gases revealed a pCO2 of 83. Influenza screen was negative. Urine was negative. Troponin negative. Creatinine 1.73. White count 10.4. Hemoglobin 12.1. He is seen today in consultation on the selective care unit. He is currently resting quite comfortably in bed. His daughter is at the bedside and provides much of the information. He has been more alert and oriented. He is currently maintaining good O2 saturations in the 90s on 4 L/m per nasal cannula. He is on 2 L at home. He's been afebrile. Chest x-ray reveals bilateral subsegmental atelectasis. He has been initiated on DuoNeb inhalations, Symbicort, IV Solu-Medrol. Empiric antibiotics in the form of Levaquin. NicoDerm patch is in place. The patient is seen today 01/10/2019 in follow-up on the selective care unit. He is much more awake and alert today. Denies any worsening shortness of breath, cough or congestion. He is maintaining O2 saturations in the low 90s on 4 L/m per nasal cannula. He is afebrile. Hemodynamically stable. White count 16.2. Hemoglobin 11.3. INR 2.4. Creatinine 1.07. Bicarb 38. On 01/11/2019 patient seen in follow-up. Awake and alert, sitting up on the edge of the bed, in no acute distress, lung sounds are diminished, with a few end expiratory wheezing, his mentation is back to baseline, he is awake, alert, oriented 3. vital signs are stable, no fever or chills, he is on 4 L of oxygen with a pulse ox of 92%. it is lab work has been reviewed, with little count is 16.0, hemoglobin is 11.0, INR is 2.7, sodium is 135, potassium is 5.3, chloride is 94, CO2 38, BUN is 41, creatinine is 1.08. brain CT showed no acute intracranial hemorrhage or midline shift.chest x-ray did not show any acute pulmonary process, showed some subsegmental atelectasis and hypoventilatory lungs. stat blood gas was obtained in attempt to qualify the patient for a home BiPAP, it showed pO2 of 58, pCO2 of 56, and pH of 7.41 is was done on FiO2 of 28%. Based on this patient does qualify for home BiPAP however he would need to stay another night for overnight pulse oximetry study. We will not hold his discharge for overnight pulse oximetry study, patient is stable for discharge home today, he will need outpatient follow-up with Dr. Quarles and this issue will have to be addressed he may need outpatient sleep study to qualify him for home BiPAP for chronic hypercapnic and hypoxemic respiratory failure Objective - Vital Signs Vital signs: Vital Signs Temp 98.2 F 01/11/19 11:21 Pulse 88 01/11/19 12:00 Resp 20 01/11/19 12:00 BP 119/65 01/11/19 11:21 Pulse Ox 92 L 01/11/19 11:21 Intake & Output 01/10/19 01/11/19 01/11/19 18:59 06:59 18:59 Intake Total 1198 460 Output Total 1011 1000 Balance 1198 -1011 -540 Weight 99.8 kg Intake: IV 20 Invasive Line 1 20 Levofloxacin 250Mg-D5w 0 Pmx 250 mg In Dextrose/ Water 1 50ml.bag @ 50 mls /hr IVPB Q24H WADE Rx#: [id number] Oral 1178 460 Output: Urine 1000 1000 Post Void Residual 11 Other: Voiding Method Urinal Urinal Urinal # Voids 3 - Exam GENERAL EXAM: Alert, pleasant, 68-year-old white male, on 4 L of oxy gencomfortable in no apparent distress. HEAD: Normocephalic/atraumatic. EYES: Normal reaction of pupils, equal size. Conjunctiva pink, sclera white. NOSE: Clear with pink turbinates. THROAT: No erythema or exudates. NECK: No masses, no JVD, no thyroid enlargement, no adenopathy. CHEST: No chest wall deformity. Symmetrical expansion. LUNGS: breath sounds with end expiratory wheezing CVS: Regular rate and rhythm, normal S1 and S2, no gallops, no murmurs, no rubs ABDOMEN: Soft, nontender. No hepatosplenomegaly, normal bowel sounds, no guarding or rigidity. EXTREMITIES: No clubbing, no edema, no cyanosis, 2+ pulses and upper and lower extremities. MUSCULOSKELETAL: Muscle strength and tone normal. SPINE: No scoliosis or deformity SKIN: No rashes CENTRAL NERVOUS SYSTEM: Alert and oriented -3. No focal deficits, tone is normal in all 4 extremities. PSYCHIATRIC: Alert and oriented -3. Appropriate affect. Intact judgment and insight. - Labs CBC & Chem 7: 01/11/19 06:20 01/11/19 06:20 Labs: Abnormal Lab Results - Last 24 Hours (Table) 01/10/19 01/10/19 01/11/19 Range/Units 16:45 20:37 06:06 WBC (3.8-10.6) k/uL RBC (4.30-5.90) m/uL Hgb (13.0-17.5) gm/dL Hct (39.0-53.0) % MCHC (31.0-37.0) g/dL Neutrophils # (1.3-7.7) k/uL Lymphocytes # (1.0-4.8) k/uL PT (9.0-12.0) sec INR (<1.2) ABG pCO2 (35-45) mmHg ABG pO2 (83-108) mmHg ABG HCO3 (21-25) mmol/L ABG Total CO2 (19-24) mmol/L ABG O2 Saturation (94-97) % Sodium (137-145) mmol/L Potassium (3.5-5.1) mmol/L Chloride (98-107) mmol/L Carbon Dioxide (22-30) mmol/L BUN (9-20) mg/dL Glucose (74-99) mg/dL POC Glucose (mg/dL) 123 H 126 H 119 H (75-99) mg/dL 01/11/19 01/11/19 01/11/19 Range/Units 06:20 06:20 06:20 WBC 16.0 H (3.8-10.6) k/uL RBC 3.61 L (4.30-5.90) m/uL Hgb 11.0 L (13.0-17.5) gm/dL Hct 35.9 L (39.0-53.0) % MCHC 30.6 L (31.0-37.0) g/dL Neutrophils # 14.5 H (1.3-7.7) k/uL Lymphocytes # 0.6 L (1.0-4.8) k/uL PT 26.0 H (9.0-12.0) sec INR 2.7 H (<1.2) ABG pCO2 (35-45) mmHg ABG pO2 (83-108) mmHg ABG HCO3 (21-25) mmol/L ABG Total CO2 (19-24) mmol/L ABG O2 Saturation (94-97) % Sodium 135 L (137-145) mmol/L Potassium 5.3 H (3.5-5.1) mmol/L Chloride 94 L (98-107) mmol/L Carbon Dioxide 38 H (22-30) mmol/L BUN 41 H (9-20) mg/dL Glucose 117 H (74-99) mg/dL POC Glucose (mg/dL) (75-99) mg/dL 01/11/19 01/11/19 Range/Units 11:46 13:15 WBC (3.8-10.6) k/uL RBC (4.30-5.90) m/uL Hgb (13.0-17.5) gm/dL Hct (39.0-53.0) % MCHC (31.0-37.0) g/dL Neutrophils # (1.3-7.7) k/uL Lymphocytes # (1.0-4.8) k/uL PT (9.0-12.0) sec INR (<1.2) ABG pCO2 56 H (35-45) mmHg ABG pO2 58 L* (83-108) mmHg ABG HCO3 36 H (21-25) mmol/L ABG Total CO2 37 H (19-24) mmol/L ABG O2 Saturation 90.2 L (94-97) % Sodium (137-145) mmol/L Potassium (3.5-5.1) mmol/L Chloride (98-107) mmol/L Carbon Dioxide (22-30) mmol/L BUN (9-20) mg/dL Glucose (74-99) mg/dL POC Glucose (mg/dL) 105 H (75-99) mg/dL Assessment and Plan Plan: #1 Altered mental status secondary to acute hypoxia secondary to being off home oxygen. #2 Acute on chronic hypoxemic/hypercapnic respiratory failure secondary to an acute exacerbation of chronic obstructive pulmonary disease. #3 Chronic and ongoing tobacco dependence. #4 Paroxysmal atrial fibrillation, anticoagulated with warfarin, subtherapeutic on admission. Currently 2.4. #5 History of congestive heart failure. #6 Hypertension. #7 Hyperlipidemia. #8 Degenerative joint disease. Plan: Patient's mentation is back to baseline, he is awake and alert, brain CT was negative, chest x-ray did not show any acute pulmonary process, his blood gas didn't qualify for home BiPAP machine, however he still needs overnight pulse oximetry study, patient is stable for discharge home today, this issue will have to be addressed in the outpatient basis, patient will have to follow up with Dr. Quarles in the office, and he may need a outpatient sleep study to see if he qualifies for home BiPAP in view of chronic hypoxemic and hypercapnic respiratory failure secondary to advanced COPD. And continues to smoke, currently down to 2 cigarettes a day, he will need to quit smoking completely. Counseling was done. I performed a history & physical examination of the patient and discussed their management with my nurse practitioner, Chasity Wheeler. I reviewed the nurse practitioner's note and agree with the documented findings and plan of care. Lung sounds are positive for diminished breath sounds with end expiratory wheezing. The findings and the impression was discussed with the patient. I attest to the documentation by the nurse practitioner. Time with Patient: Less than 30
--- NOTE | 2019-01-12 00:09 | DS ---
DISCHARGE SUMMARY DATE OF SERVICE: 01/11/2019. FINAL DIAGNOSES: 1. COPD acute exacerbation with acute purulent tracheobronchitis with acute hypoxic respiratory failure. 2. Change in mental status with acute metabolic encephalopathy multifactorial. 3. Diffuse tremors. 4. No history of EtOH per family. 5. Mild acute renal failure with dehydration with possible prerenal renal failure. 6. Hyperkalemia secondary to renal failure. 7. Number anemia microcytic possibly secondary to malnutrition. 8. History atrial fibrillation. 9. History of CHF. 10.COPD. 11.Hypertension. 12.Hyperlipidemia. 13.History of DJD. 14.History of pneumonia. 15.History of chronic hypoxic respiratory failure. 16.History of continued ongoing nicotine dependence. DISCHARGE CONDITION: The patient is being discharged in stable condition with guarded prognosis. HISTORY OF PRESENT ILLNESS: This 68-year-old gentleman with a past medical history of multiple medical problems including COPD acute exacerbation was treated with bronchodilators, steroids, antibiotics. Patient improved significantly. On exam, vitals are stable. Cardiovascular S1 and S2 muffled. Abdomen soft. Breath sounds diminished. No rhonchi. No crackles. The patient was evaluated by pulmonology. The patient will be discharged in stable condition with guarded prognosis. DISCHARGE INSTRUCTIONS: 1. Diet is cardiac. 2. Activity is limited. FOLLOWUP: 1. Follow up with Dr. Arguello. 2. Follow up with home care as advised. 3. Follow up with Dr. Quarles in a few days. MEDICATIONS: 1. Breo Ellipta 225 one puff b.i.d. 2. Lasix 20 mg. 3. Lipitor 20 mg at bedtime. 4. sod chloride one drop right eye daily. 5. Toprol-XL 70 mg b.i.d. 6. Albuterol 2.5 t.i.d. 7. Xalatan 1 drop both eyes at bedtime. 8. Coumadin 7.5 mg p.o. daily. 9. Flomax 0.4 with breakfast. 10.Folic acid 1 mg daily. 11.Lipitor 40 daily. 12.Levaquin 250 mg p.o. daily. 13.Multivitamins. 14.Medrol-Dosepak 40 mg daily for 3 days, 30 for 3 days, 20 for 3 days, 10 for 3 days. 15.Protonix 40 mg daily. 16.thiamine 100 mg p.o. daily. Once again, the patient is being discharged in stable condition with guarded prognosis. MMNIKKIL / HUGHN: [id number] / JONN
[2019-01-12] MEDS ORDERED: LEVOFLOXACIN 500 MG TAB PO SCH (02:00)
== END 2019-01-11 16:05 | disposition home health service (06) | DRG 190 ==
LOC: EC 12:08 → 3SCARD 15:46
PROVIDERS: ADMIT Hospitalist; ATTEND Hospitalist
DX: J44.1 Chronic obstructive pulmonary disease with (acute) exacerbation (principal); G93.41 Metabolic encephalopathy; J96.21 Acute and chronic respiratory failure with hypoxia; J96.22 Acute and chronic respiratory failure with hypercapnia; J98.11 Atelectasis; N17.9 Acute kidney failure, unspecified; I11.0 Hypertensive heart disease with heart failure; I48.0 Paroxysmal atrial fibrillation; I50.9 Heart failure, unspecified; E87.5 Hyperkalemia; J20.9 Acute bronchitis, unspecified; D50.9 Iron deficiency anemia, unspecified; E78.5 Hyperlipidemia, unspecified; E86.0 Dehydration; F17.210 Nicotine dependence, cigarettes, uncomplicated; H40.9 Unspecified glaucoma; H91.90 Unspecified hearing loss, unspecified ear; M19.90 Unspecified osteoarthritis, unspecified site; R79.1 Abnormal coagulation profile; E66.9 Obesity, unspecified; H54.3 Unqualified visual loss, both eyes; Z68.30 Body mass index [BMI] 30.0-30.9, adult; Z79.01 Long term (current) use of anticoagulants; Z79.899 Other long term (current) drug therapy; Z87.01 Personal history of pneumonia (recurrent); Z99.81 Dependence on supplemental oxygen; Z80.6 Family history of leukemia; Z80.0 Family history of malignant neoplasm of digestive organs
CPT/HCPCS: 36415; 36600; 70450; 71046; 80048; 80053; 81003; 82550; 82553; 82803; 82805; 83735; 83880; 84484; 85025; 85610; 85730; 87502; 93005; 94640; 94760; 96361; 96374; 99285

== ENCOUNTER 2019-03-11 12:05 | Inpatient (IN) | payer MEDICARE, BC ==
[2019-03-11] MEDS ORDERED: FUROSEMIDE 10 MG/ML 4 ML VIAL IV STA (13:07)
[2019-03-11] MEDS ORDERED: SODIUM CHLORIDE 0.9% 1,000 ML IV STA (13:07)
[2019-03-11] MEDS ORDERED: IPRATROPIUM-ALBUTEROL 3 ML NEB INHALATION STA ×2 (13:07→16:19)
[2019-03-11 13:59] LABS: INR 1.3 (<1.2)
[2019-03-11 14:00] LABS: Partial Thromboplastin Time 29.3 sec (22.0-30.0); Prothrombin Time 13.3 sec (9.0-12.0)
[2019-03-11 14:07] LABS: ALT 22 U/L (21-72); AST 20 U/L (17-59); Albumin 3.7 g/dL (3.5-5.0); Alkaline Phosphatase 96 U/L (38-126); Blood Urea Nitrogen 15 mg/dL (9-20); Calcium 9.2 mg/dL (8.4-10.2); Chloride 95 mmol/L (98-107); Glucose 94 mg/dL (74-99); Magnesium 2.1 mg/dL (1.6-2.3); Potassium 4.8 mmol/L (3.5-5.1); Sodium 139 mmol/L (137-145); Total Bilirubin 0.5 mg/dL (0.2-1.3)
[2019-03-11 14:14] LABS: Anion Gap 2 mmol/L
[2019-03-11 14:20] LABS: Basophils # (A) 0.1 k/uL (0-0.2); Basophils % (A) 0 %; Eosinophils # (A) 0.6 k/uL (0-0.7); Eosinophils % (A) 5 %; HCT 34.8 % (39.0-53.0); HGB 10.6 gm/dL (13.0-17.5); Hypochromasia Moderate; Lymphocytes # (A) 1.7 k/uL (1.0-4.8); Lymphocytes % (A) 15 %; MCH 28.8 pg (25.0-35.0); MCHC 30.4 g/dL (31.0-37.0); MCV 94.9 fL (80.0-100.0); Monocytes # (A) 0.9 k/uL (0-1.0); Monocytes % (A) 8 %; Neutrophils # (A) 7.8 k/uL (1.3-7.7); Neutrophils % (A) 69 %; Platelet Count 311 k/uL (150-450); RBC 3.67 m/uL (4.30-5.90); RDW 14.7 % (11.5-15.5); WBC 11.4 k/uL (3.8-10.6)
--- NOTE | 2019-03-11 14:25 | ED ---
General Adult HPI <Hema Phelan - Last Filed: 03/11/19 16:08> - General Source: patient, RN notes reviewed, old records reviewed Mode of arrival: ambulatory Limitations: no limitations <Alexa Santacruz - Last Filed: 03/11/19 16:46> - General Chief complaint: Shortness of Breath Stated complaint: SOB/water retention Time Seen by Provider: 03/11/19 12:46 - History of Present Illness Initial comments: Care is a 69-year-old male history of end-stage COPD, and heart failure, he presents emergency department today with complaints of weight gain, difficulty breathing. Patient had low oxygen saturations of 50% on room air. Patient reports that he is normally on 4 L of oxygen. He went to see his director food safety for a Coumadin level checked. It is mildly decreased at 1.7 today. Patient has had no associated headaches or other symptoms of nausea or vomiting. Patient states he feels like he is has a difficult time laying backward due to fluid on lungs difficulty breathing. (Alexa Santacruz) - Related Data Home Medications Medication Instructions Recorded Confirmed Atorvastatin [Lipitor] 20 mg PO HS 05/02/17 01/08/19 Fluticasone/Vilanterol [Breo 1 puff INHALATION RT-BID 05/02/17 01/08/19 Ellipta 200-25 Mcg INH] Furosemide [Lasix] 20 mg PO DAILY 05/02/17 01/08/19 Albuterol Nebulized [Ventolin 3 ml INHALATION RT-TID 08/21/18 01/08/19 Nebulized] Metoprolol Succinate (ER) [Toprol 75 mg PO BID 01/08/19 01/08/19 XL] Latanoprost Ophth [Xalatan 0.005%] 1 drop BOTH EYES HS 01/11/19 01/11/19 Sodium Chloride 5% Ophth Soln 1 drop RIGHT EYE DAILY 01/11/19 01/11/19 [Nicki 128] Previous Rx's Medication Instructions Recorded Folic Acid 1 mg PO DAILY@1200 #30 tab 01/11/19 Levofloxacin [Levaquin] 250 mg PO DAILY #3 tab 01/11/19 Multivitamins, Thera [Multivitamin 1 each PO DAILY@1200 #30 tab 01/11/19 (formulary)] Nicotine 14Mg/24Hr Patch [Habitrol] 1 patch TRANSDERM DAILY #30 patch 01/11/19 Pantoprazole [Protonix] 40 mg PO AC-BRKFST #30 tablet.dr 01/11/19 Tamsulosin [Flomax] 0.4 mg PO PC-BRKFST #30 cap.er.24h 01/11/19 Thiamine [Vitamin B-1] 100 mg PO DAILY@1200 #30 tab 01/11/19 Warfarin [Coumadin] 7.5 mg PO DAILY #1 tab 01/11/19 predniSONE 10 mg PO DIRECTED #30 tab 01/11/19 Allergies Allergy/AdvReac Type Severity Reaction Status Date / Time No Known Allergies Allergy Verified 03/11/19 12:38 Review of Systems ROS Other: All systems not noted in ROS Statement are negative. <Hema Phelan - Last Filed: 03/11/19 16:08> ROS Other: All systems not noted in ROS Statement are negative. <Alexa Santacruz - Last Filed: 03/11/19 16:46> ROS Statement: Those systems with pertinent positive or pertinent negative responses have been documented in the HPI. Past Medical History Past Medical History: Atrial Fibrillation, Heart Failure, COPD, Eye Disorder, Hyperlipidemia, Hypertension, Osteoarthritis (OA), Pneumonia Additional Past Medical History / Comment(s): COPD,02 2 liters n/c at hs, previous history of acute respiratory failure related to COPD exacerbation/vented, glaucoma, obesity, chronic atrial fibrillation/flutter,wears contact lense rt eye and also weras glasses History of Any Multi-Drug Resistant Organisms: None Reported Past Surgical History: Ablation Additional Past Surgical History / Comment(s): right eye surgery.colonoscopy Past Anesthesia/Blood Transfusion Reactions: No Reported Reaction Past Psychological History: No Psychological Hx Reported Smoking Status: Current every day smoker Past Alcohol Use History: None Reported Past Drug Use History: None Reported - Past Family History Brother(s) Family Medical History: Cancer Additional Family Medical History / Comment(s): CMML <Alexa Santacruz - Last Filed: 03/11/19 16:46> General Exam Limitations: no limitations General appearance: alert, in no apparent distress Head exam: Present: atraumatic, normocephalic, normal inspection Eye exam: Present: normal appearance, PERRL, EOMI. Absent: scleral icterus, conjunctival injection, periorbital swelling ENT exam: Present: normal exam, mucous membranes moist Neck exam: Present: normal inspection. Absent: tenderness, meningismus, ly mphadenopathy Respiratory exam: Present: decreased breath sounds (Decreased lung sounds throughout the entire lung field.). Absent: normal lung sounds bilaterally Cardiovascular Exam: Present: regular rate, normal rhythm, normal heart sounds. Absent: systolic murmur, diastolic murmur, rubs, gallop, clicks GI/Abdominal exam: Present: soft, normal bowel sounds. Absent: distended, tenderness, guarding, rebound, rigid Extremities exam: Present: normal inspection, full ROM, normal capillary refill, other (Bilateral peripheral edema.). Absent: tenderness, pedal edema, joint swelling, calf tenderness Back exam: Present: normal inspection Neurological exam: Present: alert, oriented X3, CN II-XII intact Psychiatric exam: Present: normal affect, normal mood Skin exam: Present: warm, dry, intact, normal color. Absent: rash <Alexa Santacruz - Last Filed: 03/11/19 16:46> - General Exam Comments Initial Comments: 69-year-old male. Alert and oriented. No distress. (Alexa Santacruz) Course <Hema Phelan - Last Filed: 03/11/19 16:08> Vital Signs 03/11/19 03/11/19 03/11/19 12:34 14:19 14:27 Temperature 99 F Pulse Rate 85 84 82 Respiratory 20 Rate Blood Pressure 114/66 O2 Sat by Pulse 87 L Oximetry 03/11/19 16:32 Temperature Pulse Rate 93 Respiratory Rate Blood Pressure O2 Sat by Pulse Oximetry - Reevaluation(s) Reevaluation #1: 03/11/19 16:08 Patient reevaluated and reexamined by myself, Dr. Phelan. I do agree with PA findings. This includes diagnostic interpretation and treatment plan. Patient does have continued wheezing and still feels somewhat short of breath. Patient and family updated on results and plan. Case was discussed in detail with Dr. Mcadams, bridgett for [facility] who will admit. (Hema Phelan) EKG Findings - EKG Comments: EKG Findings:: EKG shows sinus rhythm with occasional PVCs, otherwise normal EKG. Ventricular rate of 93 beats were noted. Intervals 136 ms. Care physician in 2 Sonia's ice. QTQTC 362/450 ms. <Alexa Santacruz - Last Filed: 03/11/19 16:46> Medical Decision Making - Lab Data Result diagrams: 03/11/19 13:27 03/11/19 13:27 <Hema Phelan - Last Filed: 03/11/19 16:08> - Lab Data Result diagrams: 03/11/19 13:27 03/11/19 13:27 - Radiology Data Radiology results: report reviewed <Alexa Santacruz - Last Filed: 03/11/19 16:46> - Medical Decision Making 69-year-old male, presents emergency department today for complaints of difficulty in breathing. He reports he's had hypoxic pulse ox readings while he was at home. Patient has a known history of stage IV COPD, does follow Dr. Quarles. He has diminished lung sounds. It is found to be hypoxic on his 4 L of oxygen. Patient states pulse ox was 8785% on room air. Given treatments, also complains of lower extremity swelling and weight gain. Is given a dose of Lasix emergency department. His BNP was significantly elevated. Troponin levels normal.White blood cell count of 11.4. Hemoglobin is 10.6. INR is 1.3. CO2 is high at 42. Patient's chest x-ray shows evidence of atelectasis, no s ignificant pleural effusions area pain continues to be short of breath. Patient will be admitted at this time for severe COPD exacerbation with repeat steroids and breathing treatments. Consults patient's bin tripper operator Dr. Quarles (NeetaAlexa) - Lab Data Lab Results 03/11/19 03/11/19 03/11/19 Range/Units 13:27 13:27 13:27 WBC 11.4 H (3.8-10.6) k/uL RBC 3.67 L (4.30-5.90) m/uL Hgb 10.6 L (13.0-17.5) gm/dL Hct 34.8 L (39.0-53.0) % MCV 94.9 (80.0-100.0) fL MCH 28.8 (25.0-35.0) pg MCHC 30.4 L (31.0-37.0) g/dL RDW 14.7 (11.5-15.5) % Plt Count 311 (150-450) k/uL Neutrophils % 69 % Lymphocytes % 15 % Monocytes % 8 % Eosinophils % 5 % Basophils % 0 % Neutrophils # 7.8 H (1.3-7.7) k/uL Lymphocytes # 1.7 (1.0-4.8) k/uL Monocytes # 0.9 (0-1.0) k/uL Eosinophils # 0.6 (0-0.7) k/uL Basophils # 0.1 (0-0.2) k/uL Hypochromasia Moderate PT (9.0-12.0) sec INR (<1.2) APTT (22.0-30.0) sec VBG pH (7.31-7.41) VBG pCO2 (37-51) mmHg VBG HCO3 (24-28) mmol/L Sodium 139 (137-145) mmol/L Potassium 4.8 (3.5-5.1) mmol/L Chloride 95 L (98-107) mmol/L Carbon Dioxide 42 H* (22-30) mmol/L Anion Gap 2 mmol/L BUN 15 (9-20) mg/dL Creatinine 0.77 (0.66-1.25) mg/dL Est GFR (CKD-EPI)AfAm >90 (>60 ml/min/1.73 sqM) Est GFR (CKD-EPI)NonAf >90 (>60 ml/min/1.73 sqM) Glucose 94 (74-99) mg/dL Calcium 9.2 (8.4-10.2) mg/dL Magnesium 2.1 (1.6-2.3) mg/dL Total Bilirubin 0.5 (0.2-1.3) mg/dL AST 20 (17-59) U/L ALT 22 (21-72) U/L Alkaline Phosphatase 96 (38-126) U/L Troponin I (0.000-0.034) ng/mL NT-Pro-B Natriuret Pep 517 pg/mL Total Protein 6.0 L (6.3-8.2) g/dL Albumin 3.7 (3.5-5.0) g/dL Urine Color Urine Appearance (Clear) Urine pH (5.0-8.0) Ur Specific Yale (1.001-1.035) Urine Protein (Negative) Urine Glucose (UA) (Negative) Urine Ketones (Negative) Urine Blood (Negative) Urine Nitrite (Negative) Urine Bilirubin (Negative) Urine Urobilinogen (<2.0) mg/dL Ur Leukocyte Esterase (Negative) 03/11/19 03/11/19 03/11/19 Range/Units 13:27 13:27 15:11 WBC (3.8-10.6) k/uL RBC (4.30-5.90) m/uL Hgb (13.0-17.5) gm/dL Hct (39.0-53.0) % MCV (80.0-100.0) fL MCH (25.0-35.0) pg MCHC (31.0-37.0) g/dL RDW (11.5-15.5) % Plt Count (150-450) k/uL Neutrophils % % Lymphocytes % % Monocytes % % Eosinophils % % Basophils % % Neutrophils # (1.3-7.7) k/uL Lymphocytes # (1.0-4.8) k/uL Monocytes # (0-1.0) k/uL Eosinophils # (0-0.7) k/uL Basophils # (0-0.2) k/uL Hypochromasia PT 13.3 H (9.0-12.0) sec INR 1.3 H (<1.2) APTT 29.3 (22.0-30.0) sec VBG pH 7.36 (7.31-7.41) VBG pCO2 74 H* (37-51) mmHg VBG HCO3 42 H (24-28) mmol/L Sodium (137-145) mmol/L Potassium (3.5-5.1) mmol/L Chloride (98-107) mmol/L Carbon Dioxide (22-30) mmol/L Anion Gap mmol/L BUN (9-20) mg/dL Creatinine (0.66-1.25) mg/dL Est GFR (CKD-EPI)AfAm (>60 ml/min/1.73 sqM) Est GFR (CKD-EPI)NonAf (>60 ml/min/1.73 sqM) Glucose (74-99) mg/dL Calcium (8.4-10.2) mg/dL Magnesium (1.6-2.3) mg/dL Total Bilirubin (0.2-1.3) mg/dL AST (17-59) U/L ALT (21-72) U/L Alkaline Phosphatase (38-126) U/L Troponin I <0.012 (0.000-0.034) ng/mL NT-Pro-B Natriuret Pep pg/mL Total Protein (6.3-8.2) g/dL Albumin (3.5-5.0) g/dL Urine Color Urine Appearance (Clear) Urine pH (5.0-8.0) Ur Specific Yale (1.001-1.035) Urine Protein (Negative) Urine Glucose (UA) (Negative) Urine Ketones (Negative) Urine Blood (Negative) Urine Nitrite (Negative) Urine Bilirubin (Negative) Urine Urobilinogen (<2.0) mg/dL Ur Leukocyte Esterase (Negative) 03/11/19 Range/Units 15:11 WBC (3.8-10.6) k/uL RBC (4.30-5.90) m/uL Hgb (13.0-17.5) gm/dL Hct (39.0-53.0) % MCV (80.0-100.0) fL MCH (25.0-35.0) pg MCHC (31.0-37.0) g/dL RDW (11.5-15.5) % Plt Count (150-450) k/uL Neutrophils % % Lymphocytes % % Monocytes % % Eosinophils % % Basophils % % Neutrophils # (1.3-7.7) k/uL Lymphocytes # (1.0-4.8) k/uL Monocytes # (0-1.0) k/uL Eosinophils # (0-0.7) k/uL Basophils # (0-0.2) k/uL Hypochromasia PT (9.0-12.0) sec INR (<1.2) APTT (22.0-30.0) sec VBG pH (7.31-7.41) VBG pCO2 (37-51) mmHg VBG HCO3 (24-28) mmol/L Sodium (137-145) mmol/L Potassium (3.5-5.1) mmol/L Chloride (98-107) mmol/L Carbon Dioxide (22-30) mmol/L Anion Gap mmol/L BUN (9-20) mg/dL Creatinine (0.66-1.25) mg/dL Est GFR (CKD-EPI)AfAm (>60 ml/min/1.73 sqM) Est GFR (CKD-EPI)NonAf (>60 ml/min/1.73 sqM) Glucose (74-99) mg/dL Calcium (8.4-10.2) mg/dL Magnesium (1.6-2.3) mg/dL Total Bilirubin (0.2-1.3) mg/dL AST (17-59) U/L ALT (21-72) U/L Alkaline Phosphatase (38-126) U/L Troponin I (0.000-0.034) ng/mL NT-Pro-B Natriuret Pep pg/mL Total Protein (6.3-8.2) g/dL Albumin (3.5-5.0) g/dL Urine Color Yellow Urine Appearance Clear (Clear) Urine pH 7.5 (5.0-8.0) Ur Specific Yale 1.009 (1.001-1.035) Urine Protein Negative (Negative) Urine Glucose (UA) Negative (Negative) Urine Ketones Negative (Negative) Urine Blood Negative (Negative) Urine Nitrite Negative (Negative) Urine Bilirubin Negative (Negative) Urine Urobilinogen <2.0 (<2.0) mg/dL Ur Leukocyte Esterase Negative (Negative) Disposition <Hema Phelan - Last Filed: 03/11/19 16:08> Is patient prescribed a controlled substance at d/c from ED?: No Time of Disposition: 16:46 <Alexa Santacruz - Last Filed: 03/11/19 16:46> Clinical Impression: COPD, severe, Hypoxia Disposition: ADMITTED IP TO THIS HOSP Condition: Stable Referrals: Arpita Arguello MD [Primary Care Provider] - 1-2 days
[2019-03-11 14:29] LABS: Carbon Dioxide 42 mmol/L (22-30)
--- NOTE | 2019-03-11 15:14 | XR ---
EXAMINATION TYPE: XR chest 2V DATE OF EXAM: 03/11/2019 COMPARISON: Prior chest x-ray 01/08/2019 HISTORY: Difficulty breathing TECHNIQUE: Frontal and lateral views of the chest are obtained. FINDINGS: Minimal bandlike areas of increased attenuation at the lung bases likely represent subsegm ental atelectasis. No pneumothorax or pleural effusion. Cardiac mediastinal silhouette, pulmonary vas cularity and gorge are stable. Increased AP diameter chest could be indicative of underlying COPD. IMPRESSION: Minimal atelectasis.
[2019-03-11 15:20] LABS: Appearance,Urine Clear (Clear); Bilirubin,Urine Negative (Negative); Blood,Urine Negative (Negative); Color,Urine Yellow; Glucose,Urine (UA) Negative (Negative); Ketones,Urine Negative (Negative); Leukocyte Esterase,Urine Negative (Negative); Nitrite,Urine Negative (Negative); PH, Urine 7.5 (5.0-8.0); Protein,Urine Negative (Negative); Specific Gravity,Urine 1.009 (1.001-1.035); Urobilinogen,Urine <2.0 mg/dL (<2.0)
[2019-03-11 15:25] LABS: VBG PH 7.36 (7.31-7.41)
[2019-03-11] MEDS ORDERED: methylPREDNISolone SOD SUCCI 125 MG/2 ML VIAL IV STA (16:20)
[2019-03-11] MEDS ORDERED: ONDANSETRON 4 MG/2 ML VIAL IVP PRN (16:46)
[2019-03-11] MEDS ORDERED: NALOXONE 0.4 MG/ML 1 ML VIAL IV PRN (16:46)
--- NOTE | 2019-03-11 17:41 | P.HPIM ---
History of Present Illness Patient is a pleasant 69-year-old gentleman with advanced to COPD he uses 4 L of onset at home care with compensative shortness of breath cough with thick yellowish sputum production and shortness of breath has been going on for last few days. Patient oxygen saturation drops to as low as 40% at home. Patient had a recent sleep study and was told he needs CPAP at home. Patient does have can start failure history as well ejection fraction of 35-40% uses 20 mg of Lasix at home although patient chest x-ray did not show any pulmonary edema BNP is not elevated. Patient does have pedal edema and weight gain history on this auscultation. Patient has history of atrial fibrillation on Coumadin INR is only 1.2 patient Coumadin dose was apparently decreased to half during his last hospitalization. She denied any fever chills patient chest x-ray did not show any pneumonic process no pulmonary edema on the chest x-ray either. Patient RVSP is within normal limits patient bicarbonate is elevated. Patient had a vague retrosternal chest pain he is unable to characterize clearly only lasted briefly. It appeared to be noncardiac Review of Systems REVIEW OF SYSTEMS: CONSTITUTIONAL: No fever, no malaise, no fatigue. HEENT: No recent visual problems or hearing problems. Denied any sore throat. CARDIOVASCULAR: No chest pain, orthopnea, PND, no palpitations, no syncope. PULMONARY: no hemoptysis. GASTROINTESTINAL: No diarrhea, no nausea, no vomiting, no abdominal pain. NEUROLOGICAL: No headaches, no weakness, no numbness. HEMATOLOGICAL: Denies any bleeding or petechiae. GENITOURINARY: Denies any burning micturition, frequency, or urgency. MUSCULOSKELETAL/RHEUMATOLOGICAL: Denies any joint pain, swelling, or any muscle pain. ENDOCRINE: Denies any polyuria or polydipsia. The rest of the 14-point review of systems is negative. Past Medical History Past Medical History: Atrial Fibrillation, Heart Failure, COPD, Eye Disorder, Hyperlipidemia, Hypertension, Osteoarthritis (OA), Pneumonia Additional Past Medical History / Comment(s): COPD,02 2 liters n/c at hs, previous history of acute respiratory failure related to COPD exacerbation/vented, glaucoma, obesity, chronic atrial fibrillation/flutter,wears contact lense rt eye and also weras glasses History of Any Multi-Drug Resistant Organisms: None Reported Past Surgical History: Ablation Additional Past Surgical History / Comment(s): right eye surgery.colonoscopy Past Anesthesia/Blood Transfusion Reactions: No Reported Reaction Past Psychological History: No Psychological Hx Reported Smoking Status: Current every day smoker Past Alcohol Use History: None Reported Past Drug Use History: None Reported - Past Family History Brother(s) Family Medical History: Cancer Additional Family Medical History / Comment(s): CMML Medications and Allergies Home Medications Medication Instructions Recorded Confirmed Type Atorvastatin [Lipitor] 20 mg PO HS 05/02/17 01/08/19 History Fluticasone/Vilanterol [Breo 1 puff INHALATION RT-BID 05/02/17 01/08/19 History Ellipta 200-25 Mcg INH] Furosemide [Lasix] 20 mg PO DAILY 05/02/17 01/08/19 History Albuterol Nebulized [Ventolin 3 ml INHALATION RT-TID 08/21/18 01/08/19 History Nebulized] Metoprolol Succinate (ER) [Toprol 75 mg PO BID 01/08/19 01/08/19 History XL] Folic Acid 1 mg PO DAILY@1200 #30 tab 01/11/19 Rx Latanoprost Ophth [Xalatan 0.005%] 1 drop BOTH EYES HS 01/11/19 01/11/19 History Levofloxacin [Levaquin] 250 mg PO DAILY #3 tab 01/11/19 Rx Multivitamins, Thera [Multivitamin 1 each PO DAILY@1200 #30 tab 01/11/19 Rx (formulary)] Nicotine 14Mg/24Hr Patch [Habitrol] 1 patch TRANSDERM DAILY #30 patch 01/11/19 Rx Pantoprazole [Protonix] 40 mg PO AC-BRKFST #30 tablet.dr 01/11/19 Rx Sodium Chloride 5% Ophth Soln 1 drop RIGHT EYE DAILY 01/11/19 01/11/19 History [Nicki 128] Tamsulosin [Flomax] 0.4 mg PO PC-BRKFST #30 cap.er.24h 01/11/19 Rx Thiamine [Vitamin B-1] 100 mg PO DAILY@1200 #30 tab 01/11/19 Rx Warfarin [Coumadin] 7.5 mg PO DAILY #1 tab 01/11/19 Rx predniSONE 10 mg PO DIRECTED #30 tab 01/11/19 Rx Allergies Allergy/AdvReac Type Severity Reaction Status Date / Time No Known Allergies Allergy Verified 03/11/19 12:38 Physical Exam Vitals: Vital Signs Temp Pulse Resp BP Pulse Ox 03/11/19 16:55 92 03/11/19 16:32 93 03/11/19 14:27 82 03/11/19 14:19 84 03/11/19 12:34 99 F 85 20 114/66 87 L Intake and Output 03/11/19 03/11/19 03/11/19 06:59 14:59 22:59 Other: Weight 111.13 kg PHYSICAL EXAMINATION: GENERAL: The patient is alert and oriented x3, not in any acute distress. Well developed, well nourished. HEENT: Pupils are round and equally reacting to light. EOMI. No scleral icterus. No conjunctival pallor. Normocephalic, atraumatic. No pharyngeal erythema. No thyromegaly. CARDIOVASCULAR: S1 and S2 present. No murmurs, rubs, or gallops. I was unable to appreciate any JVD PULMONARY: Significant expiratory wheezing on exam no crackles are appreciated ABDOMEN: Soft, nontender, nondistended, normoactive bowel sounds. No palpable organomegaly. MUSCULOSKELETAL: No joint swelling or deformity. EXTREMITIES: No cyanosis, clubbing, or pedal edema. NEUROLOGICAL: Gross neurological examination did not reveal any focal deficits. SKIN: No rashes. Results CBC & Chem 7: 03/11/19 13:27 03/11/19 13:27 Labs: Abnormal Lab Results - Last 24 Hours (Table) 03/11/19 03/11/19 03/11/19 Range/Units 13:27 13:27 13:27 WBC 11.4 H (3.8-10.6) k/uL RBC 3.67 L (4.30-5.90) m/uL Hgb 10.6 L (13.0-17.5) gm/dL Hct 34.8 L (39.0-53.0) % MCHC 30.4 L (31.0-37.0) g/dL Neutrophils # 7.8 H (1.3-7.7) k/uL PT 13.3 H (9.0-12.0) sec INR 1.3 H (<1.2) VBG pCO2 (37-51) mmHg VBG HCO3 (24-28) mmol/L Chloride 95 L (98-107) mmol/L Carbon Dioxide 42 H* (22-30) mmol/L Total Protein 6.0 L (6.3-8.2) g/dL 03/11/19 Range/Units 15:11 WBC (3.8-10.6) k/uL RBC (4.30-5.90) m/uL Hgb (13.0-17.5) gm/dL Hct (39.0-53.0) % MCHC (31.0-37.0) g/dL Neutrophils # (1.3-7.7) k/uL PT (9.0-12.0) sec INR (<1.2) VBG pCO2 74 H* (37-51) mmHg VBG HCO3 42 H (24-28) mmol/L Chloride (98-107) mmol/L Carbon Dioxide (22-30) mmol/L Total Protein (6.3-8.2) g/dL Assessment and Plan Plan: -Acute on chronic hypercapnic respiratory failure secondary to see what exacerbation patient was started on systemic steroids inhalational treatments are to be continued patient was started on doxycycline for possible tracheobronchitis may be bacterial -Bilateral pedal edema patient does not appear to be in CHF exacerbation may be secondary to local venous causes patient previous ejection fraction was 35-40% chronic systolic dysfunction patient will be started on IV Lasix for a day with close monitoring of kidney function. -Atrial fibrillation , paroxysmal A. fib presently rate controlled patient is symptomatic and INR, I do not know the dosing of the Coumadin he was taking at home, once medications are verified start him on his Coumadin at an increase the dose although, has significant interaction with systemic steroids is going to use. INR will be repeated tomorrow. -Hypertension next and have an hyperlipidemia -Degenerative joint disease - gastroesophageal reflux disease Patient will need following or GI prophylaxis and patient is on Coumadin with INR of 1.3, not need any additional DVT prophylaxis
[2019-03-11] MEDS ORDERED: methylPREDNISolone SOD SUCCI 125 MG/2 ML VIAL IV SCH (18:00)
[2019-03-11] MEDS: SODIUM CHLORIDE 0.9% 1,000 ML IV SCH (18:29)
[2019-03-11] MEDS ORDERED: WARFARIN 2.5 MG TAB PO ONE (18:45)
[2019-03-11] MEDS ORDERED: WARFARIN 10 MG TAB PO ONE (18:45)
[2019-03-11] MEDS ORDERED: SYMBICORT 160-4.5 MCG INHALER INHALATION SCH (20:00)
[2019-03-11 20:40] LABS: Glucose,Whole Blood 109 mg/dL (75-99)
[2019-03-11] MEDS: IPRATROPIUM-ALBUTEROL 3 ML NEB INHALATION PRN (20:43)
[2019-03-11] MEDS: methylPREDNISolone SOD SUCCI 40 MG/ML 1 ML VIAL IV SCH (21:19)
[2019-03-11] MEDS: ATORVASTATIN 20 MG TAB PO SCH (21:19)
[2019-03-11] MEDS: guaiFENesin 600 MG TABLET.ER PO SCH (21:19)
[2019-03-11] MEDS: FUROSEMIDE 10 MG/ML 4 ML VIAL IV SCH (21:19)
[2019-03-11] MEDS: METOPROLOL SUCCINATE (ER) 25 MG TAB.ER.24H PO SCH (21:19)
[2019-03-11] MEDS: DOXYCYCLINE 100 MG CAP PO SCH (21:21)
[2019-03-12] MEDS: IPRATROPIUM-ALBUTEROL 3 ML NEB INHALATION PRN (03:27)
[2019-03-12 07:02] LABS: Glucose,Whole Blood 134 mg/dL (75-99)
[2019-03-12] MEDS: FORMOTEROL FUMARATE 20 MCG/2 ML NEBU INHALATION SCH ×2 (07:19→19:37)
[2019-03-12] MEDS: BUDESONIDE 0.5 MG/2 ML NEBU INHALATION SCH ×2 (07:19→19:37)
[2019-03-12] MEDS: IPRATROPIUM-ALBUTEROL 3 ML NEB INHALATION SCH ×4 (07:19→19:37)
[2019-03-12] MEDS ORDERED: PANTOPRAZOLE 40 MG TABLET PO SCH (07:30)
[2019-03-12] MEDS: TAMSULOSIN 0.4 MG CAP.ER.24H PO SCH ×2 (08:54→09:02)
[2019-03-12] MEDS: methylPREDNISolone SOD SUCCI 40 MG/ML 1 ML VIAL IV SCH ×2 (08:54→17:23)
[2019-03-12] MEDS: FUROSEMIDE 10 MG/ML 4 ML VIAL IV SCH (08:54)
[2019-03-12] MEDS: guaiFENesin 600 MG TABLET.ER PO SCH ×2 (08:54→22:02)
[2019-03-12] MEDS: DOXYCYCLINE 100 MG CAP PO SCH ×2 (08:54→22:09)
[2019-03-12] MEDS: METOPROLOL SUCCINATE (ER) 25 MG TAB.ER.24H PO SCH ×2 (08:54→22:03)
[2019-03-12] MEDS ORDERED: PANTOPRAZOLE 40 MG/10 ML VIAL IV SCH (09:00)
[2019-03-12 10:08] LABS: INR 1.7 (<1.2); Prothrombin Time 16.8 sec (9.0-12.0)
[2019-03-12 10:19] LABS: Anion Gap 8 mmol/L; Blood Urea Nitrogen 20 mg/dL (9-20); Calcium 8.7 mg/dL (8.4-10.2); Carbon Dioxide 38 mmol/L (22-30); Chloride 91 mmol/L (98-107); Glucose 260 mg/dL (74-99); Potassium 4.8 mmol/L (3.5-5.1); Sodium 137 mmol/L (137-145)
[2019-03-12 12:04] LABS: Glucose,Whole Blood 158 mg/dL (75-99)
--- NOTE | 2019-03-12 14:22 | P.PN ---
Subjective 69-year-old pleasant male came resumed acceleration patient is still wheezing quite a bit patient is started breath upon minimal ambulation. Patient the pedal edema improved I'll switch him to oral Lasix patient will continue on systemic steroids for on more day possibly of discharge tomorrow today patient will be resumed on home dose of Coumadin patient's INR is 1.7 the reason I am resuming and on home dose of Coumadin is because of systemic steroids which interact with Coumadin. Constitutional: Denied any fatigue denied any fever. Cardio vascular: denied any chest pain, palpitations Gastrointestinal denied any nausea vomiting Pulmonary: As mentioned in HPI Neurologic denied any new focal deficits All inpatient medications were reviewed and appropriate changes in these medications as dictated in the interval history and assessment and plan. Objective - Vital Signs Vital signs: Vital Signs Temp 98.0 F 03/12/19 05:10 Pulse 82 03/12/19 11:27 Resp 18 03/12/19 05:10 BP 118/69 03/12/19 05:10 Pulse Ox 96 03/12/19 07:22 Intake & Output 03/11/19 03/12/19 03/12/19 18:59 06:59 18:59 Output Total 1050 Balance -1050 Weight 111.13 kg 108.2 kg Output: Urine 1050 Other: Voiding Method Urinal # Voids 2 - Exam PHYSICAL EXAMINATION: GENERAL: The patient is alert and oriented x3, not in any acute distress. Well developed, well nourished. HEENT: Pupils are round and equally reacting to light. EOMI. No scleral icterus. No conjunctival pallor. Normocephalic, atraumatic. No pharyngeal erythema. No thyromegaly. CARDIOVASCULAR: S1 and S2 present. No murmurs, rubs, or gallops. I was unable to appreciate any JVD PULMONARY: Significant expiratory wheezing on exam no crackles are appreciated ABDOMEN: Soft, nontender, nondistended, normoactive bowel sounds. No palpable organomegaly. MUSCULOSKELETAL: No joint swelling or deformity. EXTREMITIES: No cyanosis, clubbing, or pedal edema improved compared to yesterday NEUROLOGICAL: Gross neurological examination did not reveal any focal deficits. SKIN: No rashes. - Labs CBC & Chem 7: 03/11/19 13:27 03/12/19 09:16 Labs: Abnormal Lab Results - Last 24 Hours (Table) 03/11/19 03/11/19 03/11/19 Range/Units 13:27 13:27 15:11 WBC 11.4 H (3.8-10.6) k/uL RBC 3.67 L (4.30-5.90) m/uL Hgb 10.6 L (13.0-17.5) gm/dL Hct 34.8 L (39.0-53.0) % MCHC 30.4 L (31.0-37.0) g/dL Neutrophils # 7.8 H (1.3-7.7) k/uL PT (9.0-12.0) sec INR (<1.2) VBG pCO2 74 H* (37-51) mmHg VBG HCO3 42 H (24-28) mmol/L Chloride 95 L (98-107) mmol/L Carbon Dioxide 42 H* (22-30) mmol/L Glucose (74-99) mg/dL POC Glucose (mg/dL) (75-99) mg/dL Total Protein 6.0 L (6.3-8.2) g/dL 03/11/19 03/12/19 03/12/19 Range/Units 20:38 07:01 09:16 WBC (3.8-10.6) k/uL RBC (4.30-5.90) m/uL Hgb (13.0-17.5) gm/dL Hct (39.0-53.0) % MCHC (31.0-37.0) g/dL Neutrophils # (1.3-7.7) k/uL PT 16.8 H (9.0-12.0) sec INR 1.7 H (<1.2) VBG pCO2 (37-51) mmHg VBG HCO3 (24-28) mmol/L Chloride (98-107) mmol/L Carbon Dioxide (22-30) mmol/L Glucose (74-99) mg/dL POC Glucose (mg/dL) 109 H 134 H (75-99) mg/dL Total Protein (6.3-8.2) g/dL 03/12/19 03/12/19 Range/Units 09:16 12:02 WBC (3.8-10.6) k/uL RBC (4.30-5.90) m/uL Hgb (13.0-17.5) gm/dL Hct (39.0-53.0) % MCHC (31.0-37.0) g/dL Neutrophils # (1.3-7.7) k/uL PT (9.0-12.0) sec INR (<1.2) VBG pCO2 (37-51) mmHg VBG HCO3 (24-28) mmol/L Chloride 91 L (98-107) mmol/L Carbon Dioxide 38 H (22-30) mmol/L Glucose 260 H (74-99) mg/dL POC Glucose (mg/dL) 158 H (75-99) mg/dL Total Protein (6.3-8.2) g/dL Assessment and Plan Plan: -Acute on chronic hypercapnic respiratory failure secondary to see what exacerbation patient was started on systemic steroids inhalational treatments are to be continued patient was started on doxycycline for possible tracheobronchitis may be bacterial -Bilateral pedal edema patient does not appear to be in CHF exacerbation may be secondary to local venous causes patient previous ejection fraction was 35-40% chronic systolic dysfunction patient was switched to oral Lasix patient creatinine is fairly stable -Atrial fibrillation , paroxysmal A. fib presently rate controlled patient is symptomatic and INR, I do not know the dosing of the Coumadin he was taking at home, once medications are verified start him on his Coumadin at an increase the dose although, has significant interaction with systemic steroids is going to use. INR will be repeated tomorrow. Today's INR is 1.7 -Hypertension next and have an hyperlipidemia -Degenerative joint disease - gastroesophageal reflux disease Patient will need following or GI prophylaxis and patient is on Coumadin with INR of 1.3, not need any additional DVT prophylaxis
--- NOTE | 2019-03-12 15:01 | P.CNPUL ---
History of Present Illness Consult date: 03/12/19 Requesting physician: Jose Guadalupe Mcadams Reason for consult: dyspnea, COPD Chief complaint: Shortness of breath History of present illness: This a very pleasant 69-year-old gentleman who follows with Dr. Arguello as his primary care physician. He has a history of hyperlipidemia, atrial flutter, sy stolic congestive heart failure with an ejection fraction of 30-35%, obesity. He also has a history of chronic hypoxemic and hypercapnic respiratory failure secondary to severe chronic obstructive pulmonary disease. He follows with Dr. Quarles in our office for the same. His FEV1 value is 51% of predicted. He is maintained on Perforomist and Pulmicort inhalations twice a day along with DuoNeb inhalations 4 times a day. He had undergone a sleep study 03/03/2019 which revealed severe obstructive sleep apnea with an AHI of 47.7. He is to be initiated on CPAP therapy at a pressure of 14 cm of water along with his home oxygen. He had not been set up on the CPAP machine yet. He presented here to the emergency room yesterday stating he woke up quite short of breath and noted his pulse ox to be as low as 50%. He states he gradually increased up to 88% with his oxygen on 4 L and deep breathing exercises. Chest x-ray revealed minimal collected changes in lung bases. No acute pulmonary process. He was admitted for COPD exacerbation. He is seen today in consultation on the regular medical floor. He is currently sitting up at the bedside. Awake and alert in no acute distress. Maintaining O2 saturations in the 90s on 4 L/m per nasal cannula. He is afebrile. Hemodynamically stable. White count 11.4. Hemoglobin 10.6. INR 1.7. Creatinine 0.95. Bicarb 38. He's been initiated and DuoNeb inhalations, Pulmicort and Perforomist inhalations, IV Solu-Medrol. Breathing a bit easier today as compared to yesterday. Review of Systems REVIEW OF SYSTEMS: CONSTITUTIONAL: Denies any recent significant weight loss or weight gain. EYES: Denies change in vision. EARS, NOSE, MOUTH, THROAT: Denies headaches, denies sore throat. CARDIOVASCULAR: Denies chest pain, palpitations or syncopal episodes. RESPIRATORY: Positive for shortness of breath, cough, congestion no hemoptysis. GASTROINTESTINAL: Denies change in appetite, denies abdominal pain GENITOURINARY: Denies hematuria, denies infections. MUSKULOSKELETAL: Denies pain, denies swelling. INTEGUMENTARY: Denies rash, denies eczema. NEUROLOGICAL: Denies recent memory loss, no recent seizure activity. PSYCHIATRIC: Denies anxiety, denies depression. HEMATOLOGIC/LYMPHATIC: Denies anemia, denies enlarged lymph nodes. Past Medical History Past Medical History: Atrial Fibrillation, Heart Failure, COPD, Eye Disorder, Hyperlipidemia, Hypertension, Osteoarthritis (OA), Pneumonia Additional Past Medical History / Comment(s): COPD,02 2 liters n/c at hs, previous history of acute respiratory failure related to COPD exacerbation/vented, glaucoma, obesity, chronic atrial fibrillation/flutter,wears contact lense rt eye and also weras glasses History of Any Multi-Drug Resistant Organisms: None Reported Past Surgical History: Ablation Additional Past Surgical History / Comment(s): right eye surgery.colonoscopy Past Anesthesia/Blood Transfusion Reactions: No Reported Reaction Past Psychological History: No Psychological Hx Reported Smoking Status: Former smoker Past Alcohol Use History: None Reported Additional Past Alcohol Use History / Comment(s): HX OF 52 YR SMOKER, USED TO SMOKE 2 PPD down to 1/2 ppd. Quite December 2018 Past Drug Use History: None Reported - Past Family History Brother(s) Family Medical History: Cancer Additional Family Medical History / Comment(s): CMML Medications and Allergies Home Medications Medication Instructions Recorded Confirmed Type Atorvastatin [Lipitor] 20 mg PO HS 05/02/17 03/11/19 History Furosemide [Lasix] 40 mg PO DAILY 05/02/17 03/11/19 History Latanoprost Ophth [Xalatan 0.005%] 1 drop BOTH EYES HS 01/11/19 03/11/19 History Sodium Chloride 5% Ophth Soln 1 drop RIGHT EYE DAILY 01/11/19 03/11/19 History [Nicki 128] Budesonide [Pulmicort] 0.5 mg INHALATION RT-BID 03/11/19 03/11/19 History Fluticasone Nasal [place] [Flonase 2 spr EA NOSTRIL BID PRN 03/11/19 03/11/19 History Nasal [place]] Formoterol Fumarate [Perforomist] 20 mcg INHALATION RT-BID 03/11/19 03/11/19 History Furosemide [Lasix] 20 mg PO HS 03/11/19 03/11/19 History Lisinopril [Zestril] 5 mg PO DAILY 03/11/19 03/11/19 History Metoprolol Succinate (ER) [Toprol 62.5 mg PO BID 03/11/19 03/11/19 History Xl] Spironolactone [Aldactone] 25 mg PO DAILY 03/11/19 03/11/19 History Vitamin B Complex 1 cap PO DAILY 03/11/19 03/11/19 History Warfarin [Coumadin] 7.5 mg PO MOWEFR 03/11/19 03/11/19 History Warfarin [Coumadin] 10 mg PO SUTUTHSA 03/11/19 03/11/19 History Warfarin [Coumadin] 12.5 mg PO ONCE@1730 03/11/19 03/11/19 History Allergies Allergy/AdvReac Type Severity Reaction Status Date / Time No Known Allergies Allergy Verified 03/11/19 12:38 Physical Exam Vitals: Vital Signs Temp Pulse Pulse Resp BP Pulse Ox 03/12/19 14:35 99.1 F 97 18 137/72 94 L 03/12/19 11:27 82 03/12/19 11:15 84 03/12/19 07:48 88 03/12/19 07:36 84 03/12/19 07:35 84 03/12/19 07:22 86 96 03/12/19 05:10 98.0 F 90 18 118/69 93 L 03/12/19 03:41 86 03/12/19 03:27 86 03/11/19 21:13 98.2 F 86 18 119/66 97 03/11/19 20:55 83 03/11/19 20:44 83 93 L 03/11/19 16:55 92 03/11/19 16:32 93 Intake and Output 03/11/19 03/12/19 03/12/19 22:59 06:59 14:59 Output Total 1050 Balance -1050 Output: Urine 1050 Other: Voiding Method Urinal # Voids 1 2 Weight 108.2 kg GENERAL EXAM: Obese. Alert, active, comfortable in no apparent distress. On 4 L nasal cannula. HEAD: Normocephalic. EYES: Normal reaction of pupils, equal size. NOSE: Clear with pink turbinates. THROAT: Crowding the posterior pharynx. No erythema or exudates. NECK: No masses, no JVD. CHEST: No chest wall deformity. LUNGS: Equal air entry with no crackles, wheeze, rhonchi or dullness. CVS: S1 and S2 normal with no audible murmur, regular rhythm. ABDOMEN: No hepatosplenomegaly, normal bowel sounds, no guarding or rigidity. SPINE: No scoliosis or deformity SKIN: No rashes CENTRAL NERVOUS SYSTEM: No focal deficits, tone is normal in all 4 extremities. EXTREMITIES: There is no peripheral edema. No clubbing, no cyanosis. Peripheral pulses are intact. Results - Laboratory Findings CBC and BMP: 03/11/19 13:27 03/12/19 09:16 PT/INR, D-dimer PT 16.8 sec (9.0-12.0) H 03/12/19 09:16 INR 1.7 (<1.2) H 03/12/19 09:16 Abnormal lab findings: Abnormal Labs 03/11/19 03/11/19 03/11/19 13:27 13:27 13:27 WBC 11.4 H RBC 3.67 L Hgb 10.6 L Hct 34.8 L MCHC 30.4 L Neutrophils # 7.8 H PT 13.3 H INR 1.3 H VBG pCO2 VBG HCO3 Chloride 95 L Carbon Dioxide 42 H* Glucose POC Glucose (mg/dL) Total Protein 6.0 L 03/11/19 03/11/19 03/12/19 15:11 20:38 07:01 WBC RBC Hgb Hct MCHC Neutrophils # PT INR VBG pCO2 74 H* VBG HCO3 42 H Chloride Carbon Dioxide Glucose POC Glucose (mg/dL) 109 H 134 H Total Protein 03/12/19 03/12/19 03/12/19 09:16 09:16 12:02 WBC RBC Hgb Hct MCHC Neutrophils # PT 16.8 H INR 1.7 H VBG pCO2 VBG HCO3 Chloride 91 L Carbon Dioxide 38 H Glucose 260 H POC Glucose (mg/dL) 158 H Total Protein - Diagnostic Findings Chest x-ray: image reviewed Assessment and Plan Assessment: Impression: #1 Acute on chronic hypoxemic respiratory failure secondary to an acute exacerbation of chronic obstructive pulmonary disease. #2 Acute on chronic hypercapnic respiratory failure secondary to an acute exacerbation of chronic obstructive pulmonary disease. #3 Obstructive sleep apnea, severe with an AHI of 47.7, to be set up on CPAP at 14 cm of water via the [facility]. #4 Severe chronic obstructive pulmonary disease with previous FEV1 value 35% of predicted. Most recent FEV1 up to 41% post treatment. #5 Chronic tobacco dependence. #6 Chronic atrial fibrillation, anticoagulated with warfarin. INR 1.7 #7 Systolic congestive heart failure with ejection fraction 35%. #8 Obesity. Plan: The patient was seen and evaluated by Dr. Rowley. Chest x-ray and labs were reviewed. We'll treat the patient for COPD exacerbation. Continue with Pulmicort and Perforomist inhalations, DuoNeb inhalations, IV Solu-Medrol. Probable discharge in the next 24-48 hours. Follow-up at the sleep center to obtain his CPAP machine. We will continue to follow make further recommendations based on his clinical status. I, the cosigning physician, performed a history & physical examination of the patient. Lungs sounds with bilateral end expiratory wheeze, diminished. Maintaining good O2 saturations in the 90s on 4 L/m per nasal cannula. I discussed the assessment and plan of care with my nurse practitioner, Kaycee Yoo. I attest to the above note as dictated by her. Time with Patient: Greater than 30
[2019-03-12 17:03] LABS: Glucose,Whole Blood 190 mg/dL (75-99)
[2019-03-12] MEDS: INSULIN ASPART (NovoLOG) 100 UNIT/ML VIAL SQ SCH ×2 (17:25→22:10)
[2019-03-12] MEDS: SODIUM CHLORIDE 0.9% 1,000 ML IV SCH (17:26)
[2019-03-12] MEDS ORDERED: WARFARIN 5 MG TAB PO SCH (18:00)
[2019-03-12 20:48] LABS: Glucose,Whole Blood 132 mg/dL (75-99)
[2019-03-12] MEDS ORDERED: FUROSEMIDE 20 MG TAB PO SCH (21:00)
[2019-03-12] MEDS ORDERED: LATANOPROST 0.005% OPHTH DROPS 2.5 ML BTL BOTH EYES SCH (21:00)
[2019-03-12] MEDS: ATORVASTATIN 20 MG TAB PO SCH (22:02)
[2019-03-13] MEDS: methylPREDNISolone SOD SUCCI 40 MG/ML 1 ML VIAL IV SCH ×3 (01:15→12:00)
[2019-03-13 06:27] VITALS: BP 117/73; RESP 18; TEMP 98.2
[2019-03-13] MEDS: IPRATROPIUM-ALBUTEROL 3 ML NEB INHALATION SCH (07:20)
[2019-03-13] MEDS: BUDESONIDE 0.5 MG/2 ML NEBU INHALATION SCH (07:20)
[2019-03-13] MEDS: FORMOTEROL FUMARATE 20 MCG/2 ML NEBU INHALATION SCH (07:20)
[2019-03-13] MEDS ORDERED: PANTOPRAZOLE 40 MG TABLET PO SCH (07:30)
[2019-03-13 07:33] LABS: Glucose,Whole Blood 140 mg/dL (75-99)
[2019-03-13 07:52] VITALS: PULSE 92
[2019-03-13] MEDS: guaiFENesin 600 MG TABLET.ER PO SCH (07:58)
[2019-03-13] MEDS: DOXYCYCLINE 100 MG CAP PO SCH (07:59)
[2019-03-13] MEDS: INSULIN ASPART (NovoLOG) 100 UNIT/ML VIAL SQ SCH ×2 (08:00→12:15)
[2019-03-13] MEDS: METOPROLOL SUCCINATE (ER) 25 MG TAB.ER.24H PO SCH (08:02)
[2019-03-13] MEDS: TAMSULOSIN 0.4 MG CAP.ER.24H PO SCH (08:02)
[2019-03-13] MEDS ORDERED: NICOTINE 14MG/24HR PATCH TRANSDERM SCH (09:00)
[2019-03-13] MEDS ORDERED: FUROSEMIDE 40 MG TAB PO SCH (09:00)
[2019-03-13] MEDS ORDERED: LISINOPRIL 5 MG TAB PO SCH (09:00)
[2019-03-13 11:36] LABS: INR 2.7 (<1.2); Prothrombin Time 25.9 sec (9.0-12.0)
[2019-03-13 11:50] LABS: Calcium 8.6 mg/dL (8.4-10.2); Potassium 4.6 mmol/L (3.5-5.1)
[2019-03-13 12:11] LABS: Glucose,Whole Blood 138 mg/dL (75-99)
--- NOTE | 2019-03-13 12:30 | P.PN ---
Subjective Progress Note Date: 03/13/19 Principal diagnosis: Acute exacerbation of severe chronic obstructive pulmonary disease. This a very pleasant 69-year-old gentleman who follows with Dr. Arguello as his primary care physician. He has a history of hyperlipidemia, atrial flutter, systolic congestive heart failure with an ejection fraction of 30-35%, obesity. He also has a history of chronic hypoxemic and hypercapnic respiratory failure secondary to severe chronic obstructive pulmonary disease. He follows with Dr. Quarles in our office for the same. His FEV1 value is 51% of predicted. He is maintained on Perforomist and Pulmicort inhalations twice a day along with DuoNeb inhalations 4 times a day. He had undergone a sleep study 03/03/2019 which revealed severe obstructive sleep apnea with an AHI of 47.7. He is to be initiated on CPAP therapy at a pressure of 14 cm of water along with his home oxygen. He had not been set up on the CPAP machine yet. He presented here to the emergency room yesterday stating he woke up quite short of breath and noted his pulse ox to be as low as 50%. He states he gradually increased up to 88% with his oxygen on 4 L and deep breathing exercises. Chest x-ray revealed minimal collected changes in lung bases. No acute pulmonary process. He was admitted for COPD exacerbation. He is seen today in consultation on the regular medical floor. He is currently sitting up at the bedside. Awake and alert in no acute distress. Maintaining O2 saturations in the 90s on 4 L/m per nasal cannula. He is afebrile. Hemodynamically stable. White count 11.4. Hemoglo bin 10.6. INR 1.7. Creatinine 0.95. Bicarb 38. He's been initiated and DuoNeb inhalations, Pulmicort and Perforomist inhalations, IV Solu-Medrol. Breathing a bit easier today as compared to yesterday. Reevaluated today on 03/13/2019, slightly better, continues to cough and wheeze, no fever no chills no hemoptysis, slept well overnight. Labs were reviewed. Chest x-ray from admission showed minimal atelectasis. Objective - Vital Signs Vital signs: Vital Signs Temp 98.2 F 03/13/19 06:00 Pulse 92 03/13/19 07:52 Resp 18 03/13/19 06:00 BP 117/73 03/13/19 06:00 Pulse Ox 99 03/13/19 06:00 Intake & Output 03/12/19 03/13/19 03/13/19 18:59 06:59 18:59 Intake Total 1000 320 Output Total 1050 1200 Balance -1050 -200 320 Weight 108.2 kg 109 kg Intake: Oral 1000 320 Output: Urine 1050 1200 Other: Voiding Method Urinal Urinal # Voids 0 # Bowel Movements 0 - Exam Physical Exam: Revealed a 69-year-old white male, pleasant, in no distress. Head: Atraumatic normocephalic. HEENT:[Neck is supple.] [No neck masses.] [No thyromegaly.] [No JVD.] Chest: [Diminished breath sounds at the bases some wheezing on forced expiratory maneuver only.] Cardiac Exam: [Normal S1 and S2, no S3 gallop, no murmur.] Abdomen: [Soft, nontender, no megaly, no rebound, no guarding, normal bowel sounds.] Extremities: [No clubbing, no edema, no cyanosis.] Neurological Exam: [No focal neurologic deficit.] - Labs CBC & Chem 7: 03/11/19 13:27 03/13/19 10:35 Labs: Abnormal Lab Results - Last 24 Hours (Table) 03/12/19 03/12/19 03/13/19 Range/Units 17:01 20:41 07:10 PT (9.0-12.0) sec INR (<1.2) Sodium (137-145) mmol/L Chloride (98-107) mmol/L Carbon Dioxide (22-30) mmol/L BUN (9-20) mg/dL Glucose (74-99) mg/dL POC Glucose (mg/dL) 190 H 132 H 140 H (75-99) mg/dL 03/13/19 03/13/19 03/13/19 Range/Units 10:35 10:35 12:09 PT 25.9 H (9.0-12.0) sec INR 2.7 H (<1.2) Sodium 135 L (137-145) mmol/L Chloride 91 L (98-107) mmol/L Carbon Dioxide 36 H (22-30) mmol/L BUN 26 H (9-20) mg/dL Glucose 238 H (74-99) mg/dL POC Glucose (mg/dL) 138 H (75-99) mg/dL Microbiology - Last 24 Hours (Table) 03/11/19 13:27 Blood Culture - Preliminary Blood No Growth after 24 hours Assessment and Plan Assessment: #1 Acute on chronic hypoxemic respiratory failure secondary to an acute exacerbation of chronic obstructive pulmonary disease. #2 Acute on chronic hypercapnic respiratory failure secondary to an acute exacerbation of chronic obstructive pulmonary disease. #3 Obstructive sleep apnea, severe with an AHI of 47.7, to be set up on CPAP at 14 cm of water via the [facility]. #4 Severe chronic obstructive pulmonary disease with previous FEV1 value 35% of predicted. Most recent FEV1 up to 41% post treatment. #5 Chronic tobacco dependence. #6 Chronic atrial fibrillation, anticoagulated with warfarin. INR 1.7 #7 Systolic congestive heart failure with ejection fraction 35%. #8 Obesity. Recommendation: Continue present supportive care measures, continue bronchodilators and steroids, consider discharge planning in the next 24 hours. And outpatient follow-up Time with Patient: Less than 30
--- NOTE | 2019-03-13 13:00 | P.DS ---
Providers Date of admission: 03/11/19 16:09 Attending physician: Jose Guadalupe Mcadams Consults: 03/11/19 16:10 Consult Physician Urgent Consulting Provider: Bran Quarles Consult Reason/Comments: dyspnea Do you want consulting provider notified?: Yes Primary care physician: Arpita Arguello [facility] Course: 69-year-old pleasant male came resumed acceleration patient is still wheezing quite a bit patient is started breath upon minimal ambulation. Patient the pedal edema improved I'll switch him to oral Lasix patient will continue on systemic steroids for on more day possibly of discharge tomorrow today patient will be resumed on home dose of Coumadin patient's INR is 1.7 the reason I am resuming and on home dose of Coumadin is because of systemic steroids which interact with Coumadin. 03/13/2019 Patient respiratory status is better in his doing fairly well although his overall prognosis is poor because of extremely poor lung function and patient is definitely high risk for readmission. Patient is cleared from pulmonology perspective patient will be discharged today. Patient's INR is 2.7 today patient's Coumadin will be switched to 7.5 mg daily, Coumadin and tracks with the systemic steroids patient is being discharged on weaning dose of steroids. Repeat INR in couple days. PHYSICAL EXAMINATION: GENERAL: The patient is alert and oriented x3, not in any acute distress. Well developed, well nourished. HEENT: Pupils are round and equally reacting to light. EOMI. No scleral icterus. No conjunctival pallor. Normocephalic, atraumatic. No pharyngeal erythema. No thyromegaly. CARDIOVASCULAR: S1 and S2 present. No murmurs, rubs, or gallops. PULMONARY: Minimally decreased air entry bilateral lung limon ABDOMEN: Soft, nontender, nondistended, normoactive bowel sounds. No palpable organomegaly. MUSCULOSKELETAL: No joint swelling or deformity. EXTREMITIES: No cyanosis, clubbing, or pedal edema. NEUROLOGICAL: Gross neurological examination did not reveal any focal deficits. SKIN: No rashes. Assessment and Plan Plan: -Acute on chronic hypercapnic respiratory failure secondary to see what exacerbation -Bilateral pedal edema patient does not appear to be in CHF exacerbation may be secondary to local venous -Atrial fibrillation , paroxysmal A. fib presently rate controlled -Hypertension hyperlipidemia -Degenerative joint disease - gastroesophageal reflux disease Patient Condition at Discharge: Stable Plan - Discharge Summary New Discharge Prescriptions: New Tamsulosin [Flomax] 0.4 mg PO PC-BRKFST #30 cap.er.24h predniSONE 10 mg PO DAILY #30 tab Doxycycline [Vibramycin] 100 mg PO BID #4 cap Continue Atorvastatin [Lipitor] 20 mg PO HS Furosemide [Lasix] 40 mg PO DAILY Latanoprost Ophth [Xalatan 0.005%] 1 drop BOTH EYES HS Sodium Chloride 5% Ophth Soln [Nicki 128] 1 drop RIGHT EYE DAILY Metoprolol Succinate (ER) [Toprol XL] 62.5 mg PO BID Warfarin [Coumadin] 10 mg PO SUTUTHSA Warfarin [Coumadin] 7.5 mg PO MOWEFR Warfarin [Coumadin] 12.5 mg PO ONCE@1730 Furosemide [Lasix] 20 mg PO HS Vitamin B Complex 1 cap PO DAILY Spironolactone [Aldactone] 25 mg PO DAILY Formoterol Fumarate [Perforomist] 20 mcg INHALATION RT-BID Fluticasone Nasal [place] [Flonase Nasal [place]] 2 spr EA NOSTRIL BID PRN PRN Reason: Allergy Symptoms Budesonide [Pulmicort] 0.5 mg INHALATION RT-BID Lisinopril [Zestril] 5 mg PO DAILY Discharge Medication List Atorvastatin [Lipitor] 20 mg PO HS 05/02/17 [History] Furosemide [Lasix] 40 mg PO DAILY 05/02/17 [History] Latanoprost Ophth [Xalatan 0.005%] 1 drop BOTH EYES HS 01/11/19 [History] Sodium Chloride 5% Ophth Soln [Nicki 128] 1 drop RIGHT EYE DAILY 01/11/19 [History] Budesonide [Pulmicort] 0.5 mg INHALATION RT-BID 03/11/19 [History] Fluticasone Nasal [place] [Flonase Nasal [place]] 2 spr EA NOSTRIL BID PRN 03/11/19 [History] Formoterol Fumarate [Perforomist] 20 mcg INHALATION RT-BID 03/11/19 [History] Furosemide [Lasix] 20 mg PO HS 03/11/19 [History] Lisinopril [Zestril] 5 mg PO DAILY 03/11/19 [History] Metoprolol Succinate (ER) [Toprol XL] 62.5 mg PO BID 03/11/19 [History] Spironolactone [Aldactone] 25 mg PO DAILY 03/11/19 [History] Vitamin B Complex 1 cap PO DAILY 03/11/19 [History] Warfarin [Coumadin] 7.5 mg PO MOWEFR 03/11/19 [History] Warfarin [Coumadin] 10 mg PO SUTUTHSA 03/11/19 [History] Warfarin [Coumadin] 12.5 mg PO ONCE@1730 03/11/19 [History] Doxycycline [Vibramycin] 100 mg PO BID #4 cap 03/13/19 [Rx] Tamsulosin [Flomax] 0.4 mg PO PC-BRKFST #30 cap.er.24h 03/13/19 [Rx] predniSONE 10 mg PO DAILY #30 tab 03/13/19 [Rx] Follow up Appointment(s)/Referral(s): Arpita Arguello MD [Primary Care Provider] - 3 Days (Please call and schedule appointment on Friday) Bran Quarles MD [STAFF PHYSICIAN] - 1 Week Ambulatory/Diagnostic Orders: Prothrombin Time INR [LAB.AMB] Time Frame: 2 Days, Location: None Selected Patient Instructions/Handouts: How to Stop Smoking (DC), COPD (Chronic Obstructive Pulmonary Disease) (DC) Activity/Diet/Wound Care/Special Instructions: Activity as tolerated. Discharge Disposition: HOME SELF-CARE
[2019-03-13] MEDS ORDERED: WARFARIN 5 MG TAB PO SCH (18:00)
== END 2019-03-13 12:46 | disposition home or self-care (01) | DRG 189 ==
LOC: EC 12:05 → 4MS4W 16:09
PROVIDERS: ADMIT Internal Medicine; ATTEND Internal Medicine
DX: J96.22 Acute and chronic respiratory failure with hypercapnia (principal); J44.1 Chronic obstructive pulmonary disease with (acute) exacerbation; I50.22 Chronic systolic (congestive) heart failure; I48.92 Unspecified atrial flutter; J98.11 Atelectasis; J96.21 Acute and chronic respiratory failure with hypoxia; I48.2 Chronic atrial fibrillation; E66.9 Obesity, unspecified; Z68.35 Body mass index [BMI] 35.0-35.9, adult; E78.5 Hyperlipidemia, unspecified; F17.210 Nicotine dependence, cigarettes, uncomplicated; G47.33 Obstructive sleep apnea (adult) (pediatric); H40.9 Unspecified glaucoma; I11.0 Hypertensive heart disease with heart failure; Z79.01 Long term (current) use of anticoagulants; K21.9 Gastro-esophageal reflux disease without esophagitis; M19.90 Unspecified osteoarthritis, unspecified site; Z79.899 Other long term (current) drug therapy; Z80.6 Family history of leukemia; Z99.81 Dependence on supplemental oxygen; Z79.51 Long term (current) use of inhaled steroids; Z79.52 Long term (current) use of systemic steroids; Z87.01 Personal history of pneumonia (recurrent)
CPT/HCPCS: 36415; 71046; 80048; 80053; 81003; 82803; 83735; 83880; 84484; 85025; 85610; 85730; 87040; 93005; 94640; 94760; 96361; 96374; 96375; 99285

== ENCOUNTER 2019-04-30 10:05 | Observation (INO) | payer MEDICARE, BC ==
[2019-04-30] MEDS ORDERED: ASPIRIN 81 MG PO STA (10:15)
[2019-04-30] MEDS ORDERED: NITROGLYCERIN OINT 1 INCH/GM PACKET TOPICAL STA (10:15)
[2019-04-30] MEDS ORDERED: IPRATROPIUM-ALBUTEROL 3 ML NEB INHALATION STA (10:16)
--- NOTE | 2019-04-30 10:19 | ED ---
General Adult HPI - General Stated complaint: Chest Pain, SOB Time Seen by Provider: 04/30/19 10:06 Source: patient, EMS, RN notes reviewed Mode of arrival: EMS Limitations: no limitations - History of Present Illness Initial comments: Patient is a pleasant 69-year-old male presenting to the emergency department with complaints of dyspnea and chest discomfort. Onset of symptoms was around 5 AM. Symptoms have been steady. Dyspnea with mild improvement with nebulizer treatments at home. Patient has occasional cough however this is chronic and unchanged. No fevers. Patient has discomfort in the sternal region of his chest. Patient has a difficult time describing discomfort. No radiation. Discomfort does increase with deep inspiration. Discomfort is moderate. - Related Data Home Medications Medication Instructions Recorded Confirmed Atorvastatin [Lipitor] 20 mg PO HS 05/02/17 04/30/19 Latanoprost Ophth [Xalatan 0.005%] 1 drop BOTH EYES HS 01/11/19 04/30/19 Budesonide [Pulmicort] 0.5 mg INHALATION RT-BID 03/11/19 04/30/19 Fluticasone Nasal [place] [Flonase 2 spr EA NOSTRIL HS PRN 03/11/19 04/30/19 Nasal [place]] Formoterol Fumarate [Perforomist] 20 mcg INHALATION RT-BID 03/11/19 04/30/19 Furosemide [Lasix] 20 mg PO BID 03/11/19 04/30/19 Lisinopril [Zestril] 5 mg PO DAILY 03/11/19 04/30/19 Metoprolol Succinate (ER) [Toprol 62.5 mg PO BID 03/11/19 04/30/19 XL] Spironolactone [Aldactone] 25 mg PO DAILY 03/11/19 04/30/19 Vitamin B Complex 1 cap PO DAILY 04/30/19 04/30/19 Warfarin [Coumadin] 10 mg PO HS 04/30/19 04/30/19 Allergies Allergy/AdvReac Type Severity Reaction Status Date / Time No Known Allergies Allergy Verified 04/30/19 10:16 Review of Systems ROS Statement: Those systems with pertinent positive or pertinent negative responses have been documented in the HPI. ROS Other: All systems not noted in ROS Statement are negative. Constitutional: Denies: fever Eyes: Denies: eye pain ENT: Denies: ear pain Respiratory: Reports: dyspnea Cardiovascular: Reports: chest pain Endocrine: Denies: fatigue Gastrointestinal: Denies: abdominal pain Genitourinary: Denies: dysuria Musculoskeletal: Denies: back pain Skin: Denies: rash Neurological: Denies: weakness Past Medical History Past Medical History: Atrial Fibrillation, Heart Failure, COPD, Eye Disorder, Hyperlipidemia, Hypertension, Osteoarthritis (OA), Pneumonia Additional Past Medical History / Comment(s): COPD,02 2 liters n/c at hs, previous history of acute respiratory failure related to COPD exacerbation/vented, glaucoma, obesity, chronic atrial fibrillation/flutter,wears contact lense rt eye and also weras glasses History of Any Multi-Drug Resistant Organisms: None Reported Past Surgical History: Ablation Additional Past Surgical History / Comment(s): right eye surgery.colonoscopy Past Anesthesia/Blood Transfusion Reactions: No Reported Reaction Past Psychological History: No Psychological Hx Reported Smoking Status: Former smoker Past Alcohol Use History: None Reported Additional Past Alcohol Use History / Comment(s): HX OF 52 YR SMOKER, USED TO SMOKE 2 PPD down to 1/2 ppd. Quite December 2018 Past Drug Use History: None Reported - Past Family History Brother(s) Family Medical History: Cancer Additional Family Medical History / Comment(s): CMML General Exam Limitations: no limitations General appearance: alert, in no apparent distress Head exam: Present: atraumatic Eye exam: Present: normal appearance Neck exam: Present: normal inspection Respiratory exam: Present: wheezes, decreased breath sounds. Absent: chest wall tenderness Cardiovascular Exam: Present: regular rate, normal rhythm Expanded Peripheral pulses: 2+: Radial (R), Radial (L), Dorsalis Pedis (R), Dorsalis Pedis (L) GI/Abdominal exam: Present: soft. Absent: tenderness Extremities exam: Present: normal inspection. Absent: pedal edema, calf tenderness Neurological exam: Present: alert Psychiatric exam: Present: normal affect, normal mood Skin exam: Present: normal color Course Vital Signs 04/30/19 04/30/19 04/30/19 10:13 10:45 10:52 Temperature 98.1 F Pulse Rate 94 96 97 Respiratory 18 Rate Blood Pressure 131/69 O2 Sat by Pulse 98 Oximetry EKG Findings - EKG Comments: EKG Findings:: Sinus rhythm and 94. PVC present. [place] 138. QRS 84. QT 364. QTC 432. Normal axis. Normal QRS. No acute ST change. Medical Decision Making - Medical Decision Making Patient reevaluated and updated. Case discussed in detail with Dr. Mcadams, covering for Dr. Arguello, who will admit. - Lab Data Result diagrams: 04/30/19 10:30 04/30/19 10:30 Lab Results 04/30/19 04/30/19 04/30/19 Range/Units 10:30 10:30 10:30 WBC 16.2 H (3.8-10.6) k/uL RBC 3.51 L (4.30-5.90) m/uL Hgb 10.0 L (13.0-17.5) gm/dL Hct 32.9 L (39.0-53.0) % MCV 93.7 (80.0-100.0) fL MCH 28.6 (25.0-35.0) pg MCHC 30.5 L (31.0-37.0) g/dL RDW 15.1 (11.5-15.5) % Plt Count 372 (150-450) k/uL Neutrophils % 77 % Lymphocytes % 9 % Monocytes % 7 % Eosinophils % 4 % Basophils % 0 % Neutrophils # 12.5 H (1.3-7.7) k/uL Lymphocytes # 1.4 (1.0-4.8) k/uL Monocytes # 1.1 H (0-1.0) k/uL Eosinophils # 0.6 (0-0.7) k/uL Basophils # 0.1 (0-0.2) k/uL Hypochromasia Slight PT (9.0-12.0) sec INR (<1.2) APTT (22.0-30.0) sec Sodium 139 (137-145) mmol/L Potassium 4.4 (3.5-5.1) mmol/L Chloride 95 L (98-107) mmol/L Carbon Dioxide 36 H (22-30) mmol/L Anion Gap 8 mmol/L BUN 17 (9-20) mg/dL Creatinine 1.04 (0.66-1.25) mg/dL Est GFR (CKD-EPI)AfAm 86 (>60 ml/min/1.73 sqM) Est GFR (CKD-EPI)NonAf 74 (>60 ml/min/1.73 sqM) Glucose 102 H (74-99) mg/dL Calcium 9.0 (8.4-10.2) mg/dL Magnesium 2.0 (1.6-2.3) mg/dL Total Bilirubin 0.5 (0.2-1.3) mg/dL AST 20 (17-59) U/L ALT 20 L (21-72) U/L Alkaline Phosphatase 101 (38-126) U/L Troponin I (0.000-0.034) ng/mL NT-Pro-B Natriuret Pep 221 pg/mL Total Protein 6.2 L (6.3-8.2) g/dL Albumin 3.9 (3.5-5.0) g/dL 04/30/19 04/30/19 Range/Units 10:30 10:30 WBC (3.8-10.6) k/uL RBC (4.30-5.90) m/uL Hgb (13.0-17.5) gm/dL Hct (39.0-53.0) % MCV (80.0-100.0) fL MCH (25.0-35.0) pg MCHC (31.0-37.0) g/dL RDW (11.5-15.5) % Plt Count (150-450) k/uL Neutrophils % % Lymphocytes % % Monocytes % % Eosinophils % % Basophils % % Neutrophils # (1.3-7.7) k/uL Lymphocytes # (1.0-4.8) k/uL Monocytes # (0-1.0) k/uL Eosinophils # (0-0.7) k/uL Basophils # (0-0.2) k/uL Hypochromasia PT 16.9 H (9.0-12.0) sec INR 1.7 H (<1.2) APTT 34.1 H (22.0-30.0) sec Sodium (137-145) mmol/L Potassium (3.5-5.1) mmol/L Chloride (98-107) mmol/L Carbon Dioxide (22-30) mmol/L Anion Gap mmol/L BUN (9-20) mg/dL Creatinine (0.66-1.25) mg/dL Est GFR (CKD-EPI)AfAm (>60 ml/min/1.73 sqM) Est GFR (CKD-EPI)NonAf (>60 ml/min/1.73 sqM) Glucose (74-99) mg/dL Calcium (8.4-10.2) mg/dL Magnesium (1.6-2.3) mg/dL Total Bilirubin (0.2-1.3) mg/dL AST (17-59) U/L ALT (21-72) U/L Alkaline Phosphatase (38-126) U/L Troponin I <0.012 (0.000-0.034) ng/mL NT-Pro-B Natriuret Pep pg/mL Total Protein (6.3-8.2) g/dL Albumin (3.5-5.0) g/dL - Radiology Data Radiology results: image reviewed (Chest x-ray shows no acute process) Disposition Clinical Impression: Chest pain, Acute exacerbation of chronic obstructive airways disease Disposition: ADMITTED IP TO THIS HOSP Is patient prescribed a controlled substance at d/c from ED?: No Referrals: Arpita Arguello MD [Primary Care Provider] - 1-2 days Decision Time: 12:20
[2019-04-30] MEDS ORDERED: NICOTINE 14MG/24HR PATCH TRANSDERM STA (10:41)
[2019-04-30 10:44] LABS: Basophils # (A) 0.1 k/uL (0-0.2); Basophils % (A) 0 %; Eosinophils # (A) 0.6 k/uL (0-0.7); Eosinophils % (A) 4 %; HCT 32.9 % (39.0-53.0); Hypochromasia Slight; Lymphocytes # (A) 1.4 k/uL (1.0-4.8); Lymphocytes % (A) 9 %; MCH 28.6 pg (25.0-35.0); MCHC 30.5 g/dL (31.0-37.0); MCV 93.7 fL (80.0-100.0); Mean Platelet Volume 6.6; Monocytes # (A) 1.1 k/uL (0-1.0); Monocytes % (A) 7 %; Neutrophils # (A) 12.5 k/uL (1.3-7.7); Neutrophils % (A) 77 %; Platelet Count 372 k/uL (150-450); RBC 3.51 m/uL (4.30-5.90); RDW 15.1 % (11.5-15.5); WBC 16.2 k/uL (3.8-10.6)
[2019-04-30 10:53] LABS: INR 1.7 (<1.2); Partial Thromboplastin Time 34.1 sec (22.0-30.0); Prothrombin Time 16.9 sec (9.0-12.0)
[2019-04-30 11:06] LABS: Albumin 3.9 g/dL (3.5-5.0); Potassium 4.4 mmol/L (3.5-5.1); Total Bilirubin 0.5 mg/dL (0.2-1.3); Total Protein 6.2 g/dL (6.3-8.2)
--- NOTE | 2019-04-30 11:16 | XR ---
EXAMINATION TYPE: XR chest 2V DATE OF EXAM: 04/30/2019 COMPARISON: 03/11/2019 TECHNIQUE: PA and lateral views submitted. HISTORY: Chest pain FINDINGS: The lungs are clear and there is no pneumothorax, pleural effusion, or focal pneumonia. Arthropathy shoulders. No overt failure. Subsegmental changes most typical atelectasis. Hypertrophic and degener ative change of the spine. Hyperinflation suggests COPD. IMPRESSION: 1. No acute process.
[2019-04-30] MEDS ORDERED: IPRATROPIUM-ALBUTEROL 3 ML NEB INHALATION PRN (12:25)
[2019-04-30] MEDS ORDERED: NITROGLYCERIN SL TABS 0.4 MG TAB SUBLINGUAL PRN (12:25)
[2019-04-30] MEDS ORDERED: methylPREDNISolone SOD SUCCI 125 MG/2 ML VIAL IV STA (12:25)
[2019-04-30] MEDS: IPRATROPIUM-ALBUTEROL 3 ML NEB INHALATION SCH ×3 (15:06→21:50)
--- NOTE | 2019-04-30 15:36 | P.HPIM ---
History of Present Illness Chief Complaint: Chest pain This is a very pleasant [age]-year-old gentleman with a past medical history significant for COPD on 4 L of oxygen at home comes to the ER with above- mentioned complaint. The patient says that he was okay until this morning when he suddenly started having chest pain in the center of the chest which was crushing in nature but it but 10 intensity. He did not have any radiation of the pain. He said that he was also feeling shortness of breath along with the pain and was having cough. He said that he's been having cough more than normal for the past few days. It is productive of greenish phlegm. He complains of no fever but was having chills. He does not complain of any abdominal pain, nausea and vomiting, or diarrhea constipation, no tingling numbness on his extremities, no itch or rash the patient says that he is also on Coumadin. He has a history of ablation done for A. fib ER course-temperature 98.1 pulse 94 respiration 18 blood pressure 131/69 satting 98% on 4 L. Labwork was done which showed WBC 16.2 hemoglobin 10.0 platelets 372 sodium 139 potassium 4.4 BUN 17 creatinine 1.04 LFTs are normal troponin was less than 0.01. INR was 1.7. Patient was given Solu-Medrol, breathing treatments and admitted to the hospitalist service a further evaluation and management Review of Systems All systems: negative Past Medical History Past Medical History: Atrial Fibrillation, Heart Failure, COPD, Eye Disorder, Hyperlipidemia, Hypertension, Osteoarthritis (OA), Pneumonia Additional Past Medical History / Comment(s): COPD,02 2 liters n/c at hs, previous history of acute respiratory failure related to COPD exacerbation/vented, glaucoma, obesity, chronic atrial fibrillation/flutter,wears contact lense rt eye and also weras glasses History of Any Multi-Drug Resistant Organisms: None Reported Past Surgical History: Ablation Additional Past Surgical History / Comment(s): right eye surgery.colonoscopy Past Anesthesia/Blood Transfusion Reactions: No Reported Reaction Past Psychological History: No Psychological Hx Reported Smoking Status: Former smoker Past Alcohol Use History: None Reported Additional Past Alcohol Use History / Comment(s): HX OF 52 YR SMOKER, USED TO SMOKE 2 PPD down to 1/2 ppd. Quite December 2018 Past Drug Use History: None Reported - Past Family History Brother(s) Family Medical History: Cancer Additional Family Medical History / Comment(s): CMML Medications and Allergies Home Medications Medication Instructions Recorded Confirmed Type Atorvastatin [Lipitor] 20 mg PO HS 05/02/17 04/30/19 History Latanoprost Ophth [Xalatan 0.005%] 1 drop BOTH EYES HS 01/11/19 04/30/19 History Budesonide [Pulmicort] 0.5 mg INHALATION RT-BID 03/11/19 04/30/19 History Fluticasone Nasal [place] [Flonase 2 spr EA NOSTRIL HS PRN 03/11/19 04/30/19 History Nasal [place]] Formoterol Fumarate [Perforomist] 20 mcg INHALATION RT-BID 03/11/19 04/30/19 History Furosemide [Lasix] 20 mg PO BID 03/11/19 04/30/19 History Lisinopril [Zestril] 5 mg PO DAILY 03/11/19 04/30/19 History Metoprolol Succinate (ER) [Toprol 62.5 mg PO BID 03/11/19 04/30/19 History XL] Spironolactone [Aldactone] 25 mg PO DAILY 03/11/19 04/30/19 History Vitamin B Complex 1 cap PO DAILY 04/30/19 04/30/19 History Warfarin [Coumadin] 10 mg PO HS 04/30/19 04/30/19 History Allergies Allergy/AdvReac Type Severity Reaction Status Date / Time No Known Allergies Allergy Verified 04/30/19 10:16 Physical Exam Vitals: Vital Signs Temp Pulse Pulse Resp BP BP Pulse Ox 04/30/19 15:14 108 H 04/30/19 15:08 108 H 04/30/19 14:44 98.5 F 108 H 18 106/63 93 L 04/30/19 12:30 97 17 114/69 95 04/30/19 12:00 99 18 107/63 95 04/30/19 11:31 97 17 144/91 93 L 04/30/19 11:01 96 19 123/68 97 04/30/19 10:52 97 04/30/19 10:45 96 04/30/19 10:13 98.1 F 94 18 131/69 98 Intake and Output 04/30/19 04/30/19 04/30/19 06:59 14:59 22:59 Other: Weight 107.501 kg On exam, alert and oriented x3. HEENT: Conjunctivae normal. eyes normal. NECK: No JVD. No thyroid enlargement. No LNs CARDIOVASCULAR: S1, S2 muffled. No murmur RESPIRATION: Patient is having wheezing bilaterally ABDOMEN: Soft, nontender . No guarding. no masses palpable. No ascites, No hepatosplenomegaly.Bowel sounds heard. LEGS: No edema. no swelling NERVOUS SYSTEM: Cranial N 2-12 grossly normal. Moves all 4 limbs. No focal deficits. No sensory deficit. No signs of cerebellar dysfucntion. Skin: no ulcer no rash Results CBC & Chem 7: 04/30/19 10:30 04/30/19 10:30 Labs: Abnormal Lab Results - Last 24 Hours (Table) 04/30/19 04/30/19 04/30/19 Range/Units 10:30 10:30 10:30 WBC 16.2 H (3.8-10.6) k/uL RBC 3.51 L (4.30-5.90) m/uL Hgb 10.0 L (13.0-17.5) gm/dL Hct 32.9 L (39.0-53.0) % MCHC 30.5 L (31.0-37.0) g/dL Neutrophils # 12.5 H (1.3-7.7) k/uL Monocytes # 1.1 H (0-1.0) k/uL PT 16.9 H (9.0-12.0) sec INR 1.7 H (<1.2) APTT 34.1 H (22.0-30.0) sec Chloride 95 L (98-107) mmol/L Carbon Dioxide 36 H (22-30) mmol/L Glucose 102 H (74-99) mg/dL ALT 20 L (21-72) U/L Total Protein 6.2 L (6.3-8.2) g/dL Assessment and Plan Assessment: - Chest pain need to rule out cardiac cause - COPD exacerbation - History of A. fib status post ablation on anti-coagulation - History of heart failure - History of hyperlipidemia - History of hypertension - History of arthritis Plan - We'll admit the patient to [facility] with telemetry under observation - We'll continue breathing treatments, steroids and antibiotics for COPD exacerbation - Cardiology consulted for the expert recommendations - We'll monitor patient's troponin levels - We will resume the patient's home medications her medications are updated in the computer - DVT and GI prophylaxis. We'll continue Coumadin - We'll order for lab work in the morning - Patient is full code
[2019-04-30 16:37] LABS: Glucose,Whole Blood 333 mg/dL (75-99)
[2019-04-30] MEDS ORDERED: FLUTICASONE 50MCG/SPRAY NASAL 16GM EA NOSTRIL PRN (17:04)
[2019-04-30] MEDS: INSULIN ASPART (NovoLOG) 100 UNIT/ML VIAL SQ SCH ×2 (18:20→20:58)
[2019-04-30] MEDS ORDERED: INSULIN ASPART (NovoLOG) 100 UNIT/ML VIAL SQ ONE (18:30)
[2019-04-30] MEDS: methylPREDNISolone SOD SUCCI 125 MG/2 ML VIAL IV SCH ×2 (18:34→23:55)
[2019-04-30] MEDS: NITROGLYCERIN OINT 1 INCH/GM PACKET TOPICAL SCH (18:35)
[2019-04-30 20:03] LABS: Glucose,Whole Blood 250 mg/dL (75-99)
[2019-04-30] MEDS: METOPROLOL SUCCINATE (ER) 25 MG TAB.ER.24H PO SCH (20:55)
[2019-04-30] MEDS: DOXYCYCLINE 100 MG in SODIUM CHLORIDE 0.9% 100 ML IVPB SCH (20:55)
[2019-04-30] MEDS: WARFARIN 5 MG TAB PO SCH (20:56)
[2019-04-30] MEDS: ATORVASTATIN 20 MG TAB PO SCH (20:57)
[2019-04-30] MEDS: LATANOPROST 0.005% OPHTH DROPS 2.5 ML BTL BOTH EYES SCH (20:57)
[2019-04-30] MEDS: INSULIN DETEMIR (LEVEMIR) 100 UNIT/ML SYR SQ SCH (20:58)
[2019-04-30] MEDS: FORMOTEROL FUMARATE 20 MCG/2 ML NEBU INHALATION SCH ×2 (21:04→21:50)
[2019-04-30] MEDS: BUDESONIDE 0.5 MG/2 ML NEBU INHALATION SCH ×2 (21:04→21:50)
[2019-05-01] MEDS: NITROGLYCERIN OINT 1 INCH/GM PACKET TOPICAL SCH ×4 (00:04→16:37)
[2019-05-01 02:53] LABS: Cholesterol 109 mg/dL (<200); HDL Cholesterol 53 mg/dL (40-60); LDL Cholesterol,Calculated 32 mg/dL (0-99); Triglycerides 122 mg/dL (<150)
[2019-05-01] MEDS: methylPREDNISolone SOD SUCCI 125 MG/2 ML VIAL IV SCH ×4 (06:02→23:28)
[2019-05-01 06:37] LABS: Glucose,Whole Blood 181 mg/dL (75-99)
[2019-05-01] MEDS: BUDESONIDE 0.5 MG/2 ML NEBU INHALATION SCH ×2 (07:15→18:38)
[2019-05-01] MEDS: IPRATROPIUM-ALBUTEROL 3 ML NEB INHALATION SCH ×4 (07:15→18:38)
[2019-05-01] MEDS: FORMOTEROL FUMARATE 20 MCG/2 ML NEBU INHALATION SCH ×2 (07:15→18:38)
[2019-05-01] MEDS: SPIRONOLACTONE 25 MG TAB PO SCH (08:48)
[2019-05-01] MEDS: LISINOPRIL 5 MG TAB PO SCH (08:48)
[2019-05-01] MEDS: ASPIRIN 325 MG TAB PO SCH (08:48)
[2019-05-01] MEDS: FUROSEMIDE 20 MG TAB PO SCH ×2 (08:48→16:41)
[2019-05-01] MEDS: NICOTINE 14MG/24HR PATCH TRANSDERM SCH (08:49)
[2019-05-01] MEDS: DOXYCYCLINE 100 MG in SODIUM CHLORIDE 0.9% 100 ML IVPB SCH (08:49)
[2019-05-01] MEDS: INSULIN ASPART (NovoLOG) 100 UNIT/ML VIAL SQ SCH ×4 (08:49→20:24)
[2019-05-01] MEDS: METOPROLOL SUCCINATE (ER) 25 MG TAB.ER.24H PO SCH ×2 (08:49→20:27)
[2019-05-01] MEDS ORDERED: NON-FORMULARY DRUG (Vitamin B Complex [Vitamin B Complex] 1 CAP) PO SCH (09:00)
[2019-05-01 11:30] LABS: Glucose,Whole Blood 235 mg/dL (75-99)
--- NOTE | 2019-05-01 13:04 | P.CRDCN ---
History of Present Illness History of present illness: This is a pleasant 69-year-old male past medical history significant for paroxysmal atrial fibrillation status post ablation, dilated cardiomyopathy, hypertension, dyslipidemia and end-stage COPD on home oxygen. He follows in the office with Dr. Delgado. We have been asked to see him in consultation secondary to chest discomfort. He states he woke up yesterday morning around 4:30 AM with a sharp stabbing pain in the right anterior chest wall radiated between the midsternal region and the right shoulder intermittently associated with significant shortness of breath. The chest discomfort was worse when he took in a deep breath. He denies associated palpitations, dizziness, nausea, vomiting or diaphoresis. There is no radiation to the arm, back, neck or jaw. He is seen and examined resting comfortably in bed in no acute distress. He continues to have intermittent episodes of chest discomfort with deep inspiration. Ongoing shortness of breath with no real improvement since admission. EKG reveals sinus mechanism with PVCs noted. Chest x-ray is negative for an acute cardiopulmonary process evidence of hyperinflation suggesting COPD. Laboratory data reviewed, WBC 16.2, hemoglobin 10, platelets 372, INR 1.7, sodium 139, potassium 4.4, creatinine 1.04, magnesium 2.0, cardiac enzymes negative 3, LDL 32, NT proBNP 221. Current cardiac medications include Coumadin 10 mg daily, atorvastatin 20 mg daily, lisinopril 5 mg daily, Aldactone 25 mg daily, Lasix 20 mg twice a day and Toprol 62.5 mg twice a day. Most recent echocardiogram obtained in the office December 2018 reveals preserved LV systolic function with ejection fraction 55%, mildly dilated right ventricle, mildly dilated right atrium, mild mitral regurgitation, mild tricuspid regurgitation. Most recent stress test performed in the office 2016 reveals a fixed perfusion defect in the inferior basal segment congestive of soft tissue artifact. At the time of my exam: CONSTITUTIONAL: Denies fever. Denies chills. EYES: Denies blurred vision. Denies vision changes. Denies eye pain. EARS, NOSE, MOUTH & THROAT: Denies headache. Denies sore throat. Denies ear pain. CARDIOVASCULAR: Complains of pleuritic chest pain. Complains of shortness of breath. Denies orthopnea. Denies PND. Denies palpitations. RESPIRATORY: Denies cough. GASTROINTESTINAL: Denies abdominal pain. Denies diarrhea. Denies constipation. Denies nausea. Denies vomiting. MUSCULOSKELETAL: Denies myalgias. INTEGUMENTARY: Denies pruitis. Denies rash. NEUROLOGIC: Denies numbness. Denies tingling. Denies weakness. PSYCHIATRIC: Denies anxiety. Denies depression. ENDOCRINE: Denies fatigue. Denies weight change. Denies polydipsia. Denies polyurina. GENITOURINARY: Denies burning, hematuria or urgency with micturation. HEMATOLOGIC: Denies history of anemia. Denies bleeding. Blood pressure 118/71 heart rate 95 afebrile maintaining oxygen saturation on nasal cannula GENERAL: This is a 69-year-old male in no apparent distress at the time of my examination. HEENT: Head is atraumatic, normocephalic. Pupils are equal, round. Sclerae anicteric. Conjunctivae are clear. Mucous membranes of the mouth are moist. Neck is supple. There is no jugular venous distention. No carotid bruit is heard. LUNGS: Clear to auscultation no wheezes, rales or rhonchi. No chest wall tenderness is noted on palpation or with deep breathing. Diminished bilaterally. HEART: Regular rate and rhythm without murmurs, rubs or gallops. S1 and S2 heard. ABDOMEN: Soft, nontender. Bowel sounds are heard. No organomegaly noted. EXTREMITIES: No evidence of peripheral edema and no calf tenderness noted. VASCULAR: Radial and dorsalis pedis pulses palpated, no evidence of clubbing. NEUROLOGIC: Patient is awake, alert and oriented x3. ASSESSMENT Pleuritic chest pain, atypical for angina. Acute coronary event has been ruled out. Acute exacerbation of chronic COPD Paroxysmal atrial fibrillation status post ablation on long-term anticoagulation Dilated cardiomyopathy Hypertension Dyslipidemia PLAN An acute coronary event has been ruled out. Symptoms related to underlying exacerbation of COPD. Discontinue Nitropaste. Ongoing medical management per primary care team. Thank you kindly for this consultation. Nurse Practitioner note has been reviewed, I agree with a documented findings and plan of care. Patient was seen and examined. woke up with shortness of breath and chest pain at 0430. described as a sharp pain in the right side of the chest with movement to the mid-sternal region worse with deep breathing. Past Medical History Past Medical History: Atrial Fibrillation, Heart Failure, COPD, Eye Disorder, Hyperlipidemia, Hypertension, Osteoarthritis (OA), Pneumonia Additional Past Medical History / Comment(s): COPD,02 2 liters n/c at hs, previous history of acute respiratory failure related to COPD exacerbation/vented, glaucoma, obesity, chronic atrial fi brillation/flutter,wears contact lense rt eye and also weras glasses History of Any Multi-Drug Resistant Organisms: None Reported Past Surgical History: Ablation Additional Past Surgical History / Comment(s): right eye surgery.colonoscopy Past Anesthesia/Blood Transfusion Reactions: No Reported Reaction Past Psychological History: No Psychological Hx Reported Smoking Status: Former smoker Past Alcohol Use History: None Reported Additional Past Alcohol Use History / Comment(s): HX OF 52 YR SMOKER, USED TO SMOKE 2 PPD down to 1/2 ppd. Quite December 2018 Past Drug Use History: None Reported - Past Family History Brother(s) Family Medical History: Cancer Additional Family Medical History / Comment(s): CM Medications and Allergies Home Medications Medication Instructions Recorded Confirmed Type Atorvastatin [Lipitor] 20 mg PO HS 05/02/17 04/30/19 History Latanoprost Ophth [Xalatan 0.005%] 1 drop BOTH EYES HS 01/11/19 04/30/19 History Budesonide [Pulmicort] 0.5 mg INHALATION RT-BID 03/11/19 04/30/19 History Fluticasone Nasal [place] [Flonase 2 spr EA NOSTRIL HS PRN 03/11/19 04/30/19 History Nasal [place]] Formoterol Fumarate [Perforomist] 20 mcg INHALATION RT-BID 03/11/19 04/30/19 History Furosemide [Lasix] 20 mg PO BID 03/11/19 04/30/19 History Lisinopril [Zestril] 5 mg PO DAILY 03/11/19 04/30/19 History Metoprolol Succinate (ER) [Toprol 62.5 mg PO BID 03/11/19 04/30/19 History XL] Spironolactone [Aldactone] 25 mg PO DAILY 03/11/19 04/30/19 History Vitamin B Complex 1 cap PO DAILY 04/30/19 04/30/19 History Warfarin [Coumadin] 10 mg PO HS 04/30/19 04/30/19 History Allergies Allergy/AdvReac Type Severity Reaction Status Date / Time No Known Allergies Allergy Verified 04/30/19 10:16 Physical Exam Vitals: Vital Signs Temp Pulse Pulse Pulse Resp BP BP 05/01/19 07:37 96 05/01/19 07:30 97 05/01/19 07:15 95 05/01/19 07:13 98.3 F 92 18 117/69 05/01/19 04:00 98.2 F 95 15 124/76 04/30/19 23:40 04/30/19 23:35 98.6 F 89 15 112/72 04/30/19 22:14 98 04/30/19 22:08 98 04/30/19 22:07 98 04/30/19 21:55 96 04/30/19 18:31 99.4 F 95 15 114/61 04/30/19 15:14 108 H 04/30/19 15:08 108 H 04/30/19 14:44 98.5 F 108 H 18 106/63 04/30/19 12:49 18 04/30/19 12:30 97 17 114/69 04/30/19 12:00 99 18 107/63 04/30/19 11:31 97 17 144/91 04/30/19 11:01 96 19 123/68 04/30/19 10:52 97 04/30/19 10:45 96 04/30/19 10:13 98.1 F 94 18 131/69 Pulse Ox 05/01/19 07:37 05/01/19 07:30 05/01/19 07:15 95 05/01/19 07:13 95 05/01/19 04:00 96 04/30/19 23:40 95 04/30/19 23:35 98 04/30/19 22:14 04/30/19 22:08 04/30/19 22:07 04/30/19 21:55 04/30/19 18:31 95 04/30/19 15:14 04/30/19 15:08 04/30/19 14:44 93 L 04/30/19 12:49 04/30/19 12:30 95 04/30/19 12:00 95 04/30/19 11:31 93 L 04/30/19 11:01 97 04/30/19 10:52 04/30/19 10:45 04/30/19 10:13 98 Intake and Output 04/30/19 05/01/19 05/01/19 22:59 06:59 14:59 Other: Voiding Method Toilet Toilet # Voids 2 Results 04/30/19 10:30 04/30/19 10:30 Cardiac Enzymes 04/30/19 04/30/19 04/30/19 Range/Units 10:30 10:30 17:15 AST 20 (17-59) U/L Troponin I <0.012 <0.012 (0.000-0.034) ng/mL 04/30/19 Range/Units 22:12 AST (17-59) U/L Troponin I <0.012 (0.000-0.034) ng/mL Coagulation 04/30/19 Range/Units 10:30 PT 16.9 H (9.0-12.0) sec APTT 34.1 H (22.0-30.0) sec Lipids 04/30/19 Range/Units 12:52 Triglycerides 122 (<150) mg/dL Cholesterol 109 (<200) mg/dL HDL Cholesterol 53 (40-60) mg/dL CBC 04/30/19 Range/Units 10:30 WBC 16.2 H (3.8-10.6) k/uL RBC 3.51 L (4.30-5.90) m/uL Hgb 10.0 L (13.0-17.5) gm/dL Hct 32.9 L (39.0-53.0) % Plt Count 372 (150-450) k/uL Comprehensive Metabolic Panel 04/30/19 Range/Units 10:30 Sodium 139 (137-145) mmol/L Potassium 4.4 (3.5-5.1) mmol/L Chloride 95 L (98-107) mmol/L Carbon Dioxide 36 H (22-30) mmol/L BUN 17 (9-20) mg/dL Creatinine 1.04 (0.66-1.25) mg/dL Glucose 102 H (74-99) mg/dL Calcium 9.0 (8.4-10.2) mg/dL AST 20 (17-59) U/L ALT 20 L (21-72) U/L Alkaline Phosphatase 101 (38-126) U/L Total Protein 6.2 L (6.3-8.2) g/dL Albumin 3.9 (3.5-5.0) g/dL Current Medications Generic Name Dose Route Start Last Admin Trade Name Freq PRN Reason Stop Dose Admin Albuterol/Ipratropium 3 ml 04/30/19 16:00 05/01/19 07:15 Duoneb 0.5 Mg-3 Mg/3 Ml Soln INHALATION 3 ml RT-QID WADE Administration Albuterol/Ipratropium 3 ml 04/30/19 12:25 Duoneb 0.5 Mg-3 Mg/3 Ml Soln INHALATION RT-Q4H PRN Shortness Of Breath Or Wheezing Aspirin 325 mg 05/01/19 09:00 Aspirin PO DAILY WADE Atorvastatin Calcium 20 mg 04/30/19 21:00 04/30/19 20:57 Lipitor PO 20 mg HS WADE Administration Budesonide 0.5 mg 04/30/19 20:00 05/01/19 07:15 Pulmicort INHALATION 0.5 mg RT-BID WADE Administration Fluticasone Propionate 2 spray 04/30/19 17:04 Flonase Nasal [place] EA NOSTRIL HS PRN Allergy Symptoms Formoterol Fumarate 20 mcg 04/30/19 20:00 05/01/19 07:15 Perforomist INHALATION 20 mcg RT-BID WADE Administration Furosemide 20 mg 05/01/19 09:00 Lasix PO BID@0900,1600 [facility] Doxycycline Hyclate 100 mg/ 100 mls @ 100 mls/hr 04/30/19 21:00 04/30/19 20:55 Sodium Chloride IVPB 100 mls/hr Q12HR WADE Administration Insulin Aspart 0 unit 04/30/19 17:30 04/30/19 20:58 Novolog SQ 8 unit ACHS WADE Administration Protocol Insulin Detemir 10 unit 04/30/19 21:00 04/30/19 20:58 Levemir SQ 10 unit HS WADE Administration Latanoprost 1 drops 04/30/19 21:00 04/30/19 20:57 Xalatan 0.005% BOTH EYES 1 drops HS WADE Administration Lisinopril 5 mg 05/01/19 09:00 Zestril PO DAILY [facility] Methylprednisolone Sodium Succinate 60 mg 04/30/19 18:00 05/01/19 06:02 Solu-Medrol IV 60 mg Q6HR WADE Administration Metoprolol Succinate 62.5 mg 04/30/19 21:00 04/30/19 20:55 Toprol Xl PO 62.5 mg BID WADE Administration Nitroglycerin 1 inch 04/30/19 18:00 05/01/19 06:02 Nitro-Bid Oint TOPICAL 1 inch Q6HR WADE Administration Nitroglycerin 0.4 mg 04/30/19 12:25 Nitrostat SUBLINGUAL Q5M PRN Chest Pain Spironolactone 25 mg 05/01/19 09:00 Aldactone PO DAILY [facility] Warfarin Sodium 10 mg 04/30/19 21:00 04/30/19 20:56 Coumadin PO 10 mg HS WADE Administration Intake and Output 04/30/19 05/01/19 05/01/19 22:59 06:59 14:59 Other: Voiding Method Toilet Toilet # Voids 2 04/30/19 10:30 04/30/19 10:30
--- NOTE | 2019-05-01 13:26 | P.PN ---
Subjective Progress Note Date: 05/01/19 Principal diagnosis: COPD exacerbation Mr. Comer is a 69-year-old gentleman with a past medical history of atrial fibrillation, congestive heart failure, COPD, hypertension, hyperlipidemia, osteoarthritis admitted to the hospital with a chief complaints of difficulty in breathing and chest pain. Patient has end-stage COPD and is on home oxygen. Patient mostly complains of chest discomfort on taking a deep breath. He is currently being treated for COPD exacerbation. Cardiology has been consulted as the patient has a complicated cardiac history. Today the patient is sitting up in his bed appears to be in acute distress. His is at the bedside. Patient states that his chest heaviness has improved since yesterday. He mentions that he doesn't feel as tight and heavy in his chest as yesterday on taking a deep breath. Patient denies having any palpitations. No orthopnea or PND. Patient denies having any abdominal pain nausea vomiting or diarrhea. No dysuria or hematuria. Medications medications have been reviewed Active Medications Albuterol/Ipratropium (Duoneb 0.5 Mg-3 Mg/3 Ml Soln) 3 ml INHALATION RT-QID WADE Albuterol/Ipratropium (Duoneb 0.5 Mg-3 Mg/3 Ml Soln) 3 ml INHALATION RT-Q4H PRN PRN Reason: Shortness Of Breath Or Wheezing Aspirin (Aspirin) 325 mg PO DAILY WADE Atorvastatin Calcium (Lipitor) 20 mg PO HS WADE Budesonide (Pulmicort) 0.5 mg INHALATION RT-BID [facility] Fluticasone Propionate (Flonase Nasal [place]) 2 spray EA NOSTRIL HS PRN PRN Reason: Allergy Symptoms Formoterol Fumarate (Perforomist) 20 mcg INHALATION RT-BID [facility] Furosemide (Lasix) 20 mg PO BID@0900,1600 [facility] Doxycycline Hyclate 100 mg/ (Sodium Chloride) 100 mls @ 100 mls/hr IVPB Q12HR WADE Insulin Aspart (Novolog) 0 unit SQ ACHS WADE; Protocol Insulin Detemir (Levemir) 10 unit SQ HS WADE Latanoprost (Xalatan 0.005%) 1 drops BOTH EYES HS WADE Lisinopril (Zestril) 5 mg PO DAILY [facility] Methylprednisolone Sodium Succinate (Solu-Medrol) 60 mg IV Q6HR [facility] Metoprolol Succinate (Toprol Xl) 62.5 mg PO BID WADE Nicotine (Habitrol 14mg/24hr Patch) 1 patch TRANSDERM DAILY [facility] Nitroglycerin (Nitro-Bid Oint) 1 inch TOPICAL Q6HR [facility] Nitroglycerin (Nitrostat) 0.4 mg SUBLINGUAL Q5M PRN Spironolactone (Aldactone) 25 mg PO DAILY [facility] Warfarin Sodium (Coumadin) 10 mg PO HS [facility] Objective - Vital Signs Vital signs: Vital Signs Temp 98.3 F 05/01/19 07:13 Pulse 97 05/01/19 11:15 Resp 18 05/01/19 12:00 BP 118/71 05/01/19 11:11 Pulse Ox 97 05/01/19 11:11 Intake & Output 04/30/19 05/01/19 05/01/19 18:59 06:59 18:59 Intake Total 440 Balance 440 Weight 107.501 kg Intake: Oral 240 Other 200 Other: Voiding Method Toilet Toilet # Voids 2 - Exam GEN. APPEARANCE: alert, in no apparent distress HEENT : Normocephalic, no pallor. No icterus. RESPIRATORY EXAM: Bilateral wheezing positive. More on the left side compared to right. No crackles. CARDIOVASCULAR EXAM: S1-S2 heard. GI/ABDOMINAL EXAM: soft, normal bowel sounds. Absent: distended, tenderness, guarding, rebound, rigid EXTREMITIES EXAM: No bilateral pitting edema. NEUROLOGICAL EXAM: alert, oriented X3, no focal neurological deficits. PSYCHIATRIC EXAM: normal affect, normal mood SKIN EXAM: warm, dry, intact, normal color. Absent: rash - Labs CBC & Chem 7: 04/30/19 10:30 04/30/19 10:30 Labs: Abnormal Lab Results - Last 24 Hours (Table) 04/30/19 04/30/19 05/01/19 Range/Units 16:35 20:02 06:35 POC Glucose (mg/dL) 333 H 250 H 181 H (75-99) mg/dL 05/01/19 Range/Units 11:28 POC Glucose (mg/dL) 235 H (75-99) mg/dL Assessment and Plan Assessment: ASSESSMENT Acute COPD exacerbation History of atrial fibrillation status post ablation and and anticoagulation Dilated cardiomyopathy Hypertension Hyperlipidemia Osteoarthritis PLAN: Acute coronary event has been ruled out. Patient is being currently treated for COPD exacerbation with breathing treatments and Solu-Medrol. 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 So consult for pulmonary has been placed. We will continue with the rest of his medication regimen. Further recommendations to follow depending on the progress of the patient.
--- NOTE | 2019-05-01 14:45 | CONS ---
CONSULTATION This is pulmonary critical care consultation dated May 01, 2019 This is a 69-year-old gentleman who presents to the emergency department on April 30, with complaints of increasing shortness of breath and chest pain. The pain was mostly in the right chest and began on Friday morning. It was very sharp pain. It was much worse with coughing, breathing deeply and body position changes. This started about 5 o'clock in the morning. He ended up in the emergency room maybe about 9 o'clock in the morning. He states he has never had pain like that before. The patient also complained of shortness of breath. He did have cough. He was producing occasional phlegm. That was his usual cough and phlegm production. Nothing unusual about that. There is no fever or chills. There is no nausea, vomiting or diarrhea. No genitourinary complaints. He describes the pain as 8 or 9/10. He states he never had that pain before. His , who was in the room, stated that she thought it was pleurisy because she had pleurisy before and that is what she told her . It is likely that is what he was experiencing. Currently, the pain is gone. He was evaluated by Cardiology and Cardiology did not feel like this pain was cardiac in origin. The pain is no longer present. The patient does have chronic shortness of breath on any activity. That is because he has very severe COPD. His FEV1 is apparently only 35% of predicted. The patient had a recent admission to the hospital in March of this year. He has been hospitalized twice this year, once in December and once in late February into March and now in the hospital again in April. His primary care physician is Dr. Arguello. HOME MEDICATIONS: Include Lipitor, eye drops, Pulmicort Flonase nasal spray, Perforomist, Lasix and Zestril, Toprol, Aldactone, vitamins, and DuoNeb updrafts. ALLERGIES: Denied. MEDICAL HISTORY: Atrial fibrillation, CHF, COPD, hyperlipidemia, hypertension, DJD, pneumonia, chronic hypoxemic respiratory failure, glaucoma, obesity. SURGICAL HISTORY: Includes right eye surgery, colonoscopy and ablation for his atrial fibrillation. SOCIAL HISTORY: Positive for previous heavy tobacco use. He smoked for 50 years. Smoked up to 2 packs a day. He quit in December 2018. He did drink occasionally. Does not drink currently. No illicit drug use. FAMILY HISTORY: Positive for brother with chronic myelomonocytic leukemia. He states his parents are relatively healthy. OCCUPATIONAL HISTORY: He is currently disabled. REVIEW OF SYSTEMS: CONSTITUTIONAL negative. NEUROLOGIC negative. HEENT negative. CARDIOVASCULAR negative. PULMONARY: Sharp pleuritic chest pain particularly on the right side of the chest, associated with increasing shortness of breath. The pain is worse on deep breathing, coughing or body movements, positional changes. GI negative. negative. RHEUMATOLOGIC negative. IMMUNOLOGIC negative. ENDOCRINOLOGIC negative. DERMATOLOGIC negative. PHYSICAL EXAMINATION: VITAL SIGNS: Current vital signs are reviewed. Temperature 98.3. Heart rate 96, respiratory rate 18, blood pressure 118/71 mean 86 and 4 L saturation 97%. GENERAL: Appears in no acute distress HEENT examination is grossly unremarkable. Nasal O2 noted. NECK: Supple. Full range of motion. No adenopathy. Neck veins are flat. CARDIOVASCULAR examination reveals regular rhythm and rate. S1, S2 normal. There is no S3, S4, or murmur. LUNGS: Reveal severely diminished breath sounds. A few scattered mild rhonchi. No wheezes or crackles. Breath sounds equal bilaterally but severely diminished. Slight prolongation on forced maneuver. ABDOMEN: Soft. Bowel sounds are heard. EXTREMITIES are intact. Mild edema. No cyanosis or clubbing. SKIN: Without rash. NEUROLOGIC examination is brief but nonfocal. Palpation of the anterior and lateral chest area does not reveal reproducible pain. The patient had a chest x-ray which showed no acute process and only changes of COPD. An EKG showed a normal sinus rhythm. LAB DATA: Reviewed. White count 16.2, hemoglobin 10, hematocrit 32.9, platelet count 372,000. PT 16.9, INR 1.7, PTT 34.1. Sodium 139, potassium 4.4, chloride 95, CO2 36, anion gap is 8. BUN and creatinine were 17 and 1.04. The rest of the labs look pretty good. N terminal proBNP 221. Troponin less than 0.012. Medications are reviewed. He is on his usual medications. He is getting both Pulmicort and formoterol. He is getting his usual DuoNeb updraft. He is on Solu- Medrol 60 mg q.6h. He is getting IV antibiotics which he does not need. ASSESSMENT: 1. Shortness of breath with pleuritic-type chest pain, likely related to either idiopathic or viral pleurisy. 2. Noncardiac chest pain. 3. Doubt significant chronic obstructive pulmonary disease exacerbation. 4. History of hyperlipidemia. 5. History of atrial fibrillation. 6. History of congestive heart failure. 7. History of glaucoma. 8. History of hypertension. 9. Degenerative joint disease. 10.Prior history of pneumonia. 11.Chronic hypoxemic respiratory failure. PLAN: The patient's medications are appropriate. He does not need any antibiotics at this time. He is at his baseline. The steroid should significantly improve his pleuritic chest pain. Likely discharge in the morning with some oral prednisone at 40 or 50 mg a day to be tapered over the course of 15 or 16 days. He should follow up with Dr. Quarles in the office. He also needs to follow up with his primary care physician, Dr. Arguello in [place]. We will continue to follow. MMNIKKIL / BERNARDO: [id number] /
[2019-05-01 16:37] LABS: Glucose,Whole Blood 122 mg/dL (75-99)
--- NOTE | 2019-05-01 18:19 | ECHOF ---
Referral Reason:cp sob MEASUREMENTS -------- HEIGHT: 175.3 cm WEIGHT: 107.5 kg BP: IVSd: 1.5 cm (0.6 - 1.1) LVIDd: 5.1 cm (3.9 - 5.3) LVPWd: 1.3 cm (0.6 - 1.1) IVSs: 1.9 cm LVIDs: 3.0 cm LVPWs: 2.0 cm LAESV Index (A-L): 28.45 ml/m Ao Diam: 3.2 cm (2.0 - 3.7) AV Cusp: 2.1 cm (1.5 - 2.6) LA Diam: 3.4 cm (2.7 - 3.8) MV EXCURSION: 16.009 mm (> 18.000) MV EF SLOPE: 65 mm/s (70 - 150) EPSS: 1.3 cm MV E Spike: 0.90 m/s MV DecT: 273 ms MV A Spike: 0.75 m/s MV E/A Ratio: 1.21 RAP: 5.00 mmHg RVSP: 13.38 mmHg FINDINGS -------- Sinus rhythm. This was a technically difficult study with suboptimal views. The left ventricular size is normal. There is mild concentric left ventricular hypertrophy. Overa ll left ventricular systolic function is normal with, an EF between 55 - 60 %. The right ventricle is normal in size. The left atrial size is normal. Normal LA size by volume 22+/-6 ml/m2. The right atrial size is normal. Lumason used Interatrial and interventricular septum intact. The aortic valve is trileaflet and appears structurally normal. The mitral valve is normal. There is trace mitral regurgitation. Trace tricuspid regurgitation present. Right ventricular systolic pressure is normal at < 35 mmHg. There is no pulmonic regurgitation present. The aortic root size is normal. IVC Not well visulized. There is no pericardial effusion. CONCLUSIONS -------- 1. Sinus rhythm. 2. This was a technically difficult study with suboptimal views. 3. The left ventricular size is normal. 4. There is mild concentric left ventricular hypertrophy. 5. Overall left ventricular systolic function is normal with, an EF between 55 - 60 %. 6. The right ventricle is normal in size. 7. The left atrial size is normal. 8. Normal LA size by volume 22+/-6 ml/m2. 9. The right atrial size is normal. 10. Lumason used 11. Interatrial and interventricular septum intact. 12. The aortic valve is trileaflet and appears structurally normal. 13. The mitral valve is normal. 14. There is trace mitral regurgitation. 15. Trace tricuspid regurgitation present. 16. Right ventricular systolic pressure is normal at < 35 mmHg. 17. There is no pulmonic regurgitation present. 18. The aortic root size is normal. 19. IVC Not well visulized. 20. There is no pericardial effusion. BUSINESS CONTINUITY PLANNING DIRECTOR: Natty Cardona RDCS
[2019-05-01 19:43] LABS: Glucose,Whole Blood 168 mg/dL (75-99)
[2019-05-01] MEDS: LATANOPROST 0.005% OPHTH DROPS 2.5 ML BTL BOTH EYES SCH (20:24)
[2019-05-01] MEDS: INSULIN DETEMIR (LEVEMIR) 100 UNIT/ML SYR SQ SCH (20:25)
[2019-05-01] MEDS: WARFARIN 5 MG TAB PO SCH (20:26)
[2019-05-01] MEDS: ATORVASTATIN 20 MG TAB PO SCH (20:26)
[2019-05-02] MEDS: NITROGLYCERIN OINT 1 INCH/GM PACKET TOPICAL SCH ×3 (01:40→11:27)
[2019-05-02] MEDS: methylPREDNISolone SOD SUCCI 125 MG/2 ML VIAL IV SCH ×2 (05:26→11:47)
[2019-05-02 06:32] LABS: Glucose,Whole Blood 178 mg/dL (75-99)
[2019-05-02 06:50] LABS: INR 2.2 (<1.2); Prothrombin Time 21.2 sec (9.0-12.0)
[2019-05-02 06:52] LABS: Basophils % (A) 0 %; Eosinophils % (A) 0 %; HCT 29.4 % (39.0-53.0); HGB 9.2 gm/dL (13.0-17.5); Hypochromasia Moderate; Lymphocytes # (A) 1.2 k/uL (1.0-4.8); Lymphocytes % (A) 5 %; MCH 29.6 pg (25.0-35.0); MCHC 31.2 g/dL (31.0-37.0); MCV 94.9 fL (80.0-100.0); Mean Platelet Volume 7.2; Monocytes # (A) 0.9 k/uL (0-1.0); Monocytes % (A) 3 %; Neutrophils # (A) 22.6 k/uL (1.3-7.7); Neutrophils % (A) 91 %; Platelet Count 413 k/uL (150-450); RDW 15.6 % (11.5-15.5); WBC 24.8 k/uL (3.8-10.6)
[2019-05-02 07:10] LABS: Calcium 8.9 mg/dL (8.4-10.2); Potassium 4.6 mmol/L (3.5-5.1)
[2019-05-02 07:14] VITALS: BP 123/73; RESP 18; TEMP 98.2
[2019-05-02] MEDS: FORMOTEROL FUMARATE 20 MCG/2 ML NEBU INHALATION SCH (07:29)
[2019-05-02] MEDS: IPRATROPIUM-ALBUTEROL 3 ML NEB INHALATION SCH ×2 (07:29→11:31)
[2019-05-02] MEDS: BUDESONIDE 0.5 MG/2 ML NEBU INHALATION SCH (07:29)
[2019-05-02] MEDS: NICOTINE 14MG/24HR PATCH TRANSDERM SCH (07:45)
[2019-05-02] MEDS: FUROSEMIDE 20 MG TAB PO SCH (07:46)
[2019-05-02] MEDS: ASPIRIN 325 MG TAB PO SCH (07:46)
[2019-05-02] MEDS: SPIRONOLACTONE 25 MG TAB PO SCH (07:46)
[2019-05-02] MEDS: INSULIN ASPART (NovoLOG) 100 UNIT/ML VIAL SQ SCH ×2 (07:46→11:47)
[2019-05-02] MEDS: LISINOPRIL 5 MG TAB PO SCH (07:46)
[2019-05-02] MEDS: METOPROLOL SUCCINATE (ER) 25 MG TAB.ER.24H PO SCH (07:47)
--- NOTE | 2019-05-02 10:05 | PN ---
PROGRESS NOTE DATE OF SERVICE: 05/02/2019 A 69-year-old male with a history of COPD. The patient was admitted with a diagnosis of mild COPD exacerbation, but also chest discomfort. He had atypical chest pain and it was most consistent with pleurisy. It is sharp in nature, primarily right-sided and worse with deep breathing or coughing and changes in body position. He is feeling much better now just with 24 hours of corticosteroids. He was seen by Cardiology and thought to have noncardiac chest pain. I agree with that assessment. From my perspective, Reginald could be discharged home on some oral prednisone with a burst and taper. Typically would use 40 or 50 mg a day for 4 days, tapering 10 mg a day every 4th day. He should also follow up with his primary doctor who is Dr. Arguello in [place] and also Dr. Quarles who takes care of his lungs. Currently, he is feeling well. He has no complaints of shortness of breath more than usual or any chest pain whatsoever. PHYSICAL EXAMINATION: VITAL SIGNS: Current vital signs include temperature 98. Heart rate 88, respiratory rate 16, blood pressure 110/73, mean 85 and saturations are 95% on 3 L. GENERAL: Appears in no acute distress. HEENT examination is grossly unremarkable. Mucous membranes are moist. Nasal O2 noted. NECK: Supple. Full range of motion. No adenopathy, thyromegaly or neck vein distention. CARDIOVASCULAR examination reveals a regular rhythm and rate. Heart rate 88. S1, S2 normal. There is no murmur. LUNGS: Reveal mostly clear but severely diminished breath sounds. A few scattered mild rhonchi. No wheezes or crackles. ABDOMEN: Soft. Bowel sounds are heard. EXTREMITIES are intact. No significant edema. SKIN: Without rash. NEUROLOGIC examination is brief but nonfocal. LABS: Reviewed. White count 24.8, hemoglobin 9.2, hematocrit 29.4, platelet count 413,000. PT/INR were 21.2 and 2.2 respectively. No additional labs are noted. No microbiologic studies. Medications are reviewed. ASSESSMENT: 1. Shortness of breath with pleuritic-type chest pain, likely related to either idiopathic or viral pleurisy. 2. Noncardiac chest pain. 3. Doubt significant chronic obstructive pulmonary disease exacerbation. 4. History of hyperlipidemia. 5. History of atrial fibrillation. 6. History of congestive heart failure. 7. Glaucoma. 8. Benign essential hypertension. 9. Degenerative joint disease. 10.History of pneumonia. 11.Chronic hypoxemic respiratory failure. PLAN: The patient will follow up with Dr. Arguello in [place] and also, Dr. Quarles, my partner. The patient can be discharged home on some prednisone with a burst and taper. I would begin with 40 or 50 mg a day for 4 days, tapering by 10 mg every 4th day. No additional recommendations are made. I do not believe the patient needs any antibiotics at this time. Additional recommendations and suggestions are forthcoming. Prognosis is guarded. MMODL / IJN: [id number] /
[2019-05-02 11:42] VITALS: PULSE 88
[2019-05-02 11:43] LABS: Glucose,Whole Blood 124 mg/dL (75-99)
--- NOTE | 2019-05-02 14:22 | P.DS ---
Providers Date of admission: 04/30/19 12:26 Expected date of discharge: 05/02/19 Attending physician: Jose Guadalupe Mcadams Consults: 04/30/19 12:25 Consult Physician Routine Consulting Provider: Luciano Saldivar Consult Reason/Comments: cp Do you want consulting provider notified?: Yes 05/01/19 13:07 Consult Physician Routine Consulting Provider: Stuart Liao Consult Reason/Comments: COPD Do you want consulting provider notified?: Yes Primary care physician: Arpita Arguello [facility] Course: Mr. Comer is a 69-year-old gentleman with a past medical history of elevated hypertension, congestive heart failure, COPD, hypertension, hyperlipidemia, osteoarthritis admitted to the hospital with a chief complaint of difficulty in breathing and chest pain. The patient has end-stage COPD and is on home oxygen. The patient was mostly complaining of chest discomfort on taking a deep breath. Cardiology has been consulted as the patient has a complicated cardiac history but they recommended outpatient follow-up. Eventually the patient was treated for COPD exacerbation with steroids & breathing treatments after which his breathing has improved. Pulmonary Dr. Liao has evaluated the patient and recommended to be discharged on a tapering dose of steroids. Today the patient is lying comfortably in bed appears to be no acute distress. Patient states his breathing is much better. He still has mild wheezing bilaterally. But he thinks that his back to his baseline and continue the treatment at home. Patient's vital signs and labs have been reviewed. On physical exam Lungs - bilateral mild wheeze present, much better compared to yesterday DISCHARGE DIAGNOSIS Acute COPD exacerbation History of atrial fibrillation status post ablation and and anticoagulation Dilated cardiomyopathy Hypertension Hyperlipidemia Osteoarthritis PLAN: Acute coronary event has been ruled out. He has been treated for COPD exacerbation and breathing treatments and steroids. He should significant improvement in his breathing. He still has mild bilateral wheeze. He was evaluated by pulmonary Dr. Liao and is stable to be discharged home on tapering steroid dose. He has been educated that his blood sugars might be running high as he will be discharged on steroids. His prescription tapering dose of steroid has been sent to his pharmacy. Explained to him in detail that he was to follow-up with his primary care physician in 2-3 days for blood sugar monitoring. Also discussed the same plan with the nursing staff, who would pass information onto his , who is much more aware of his medications. More than 30 minutes spent worse that discharge of the patient. Plan - Discharge Summary New Discharge Prescriptions: New predniSONE 0 mg PO DIRECTED #40 tab Continue Atorvastatin [Lipitor] 20 mg PO HS Latanoprost Ophth [Xalatan 0.005%] 1 drop BOTH EYES HS Metoprolol Succinate (ER) [Toprol XL] 62.5 mg PO BID Furosemide [Lasix] 20 mg PO BID Spironolactone [Aldactone] 25 mg PO DAILY Formoterol Fumarate [Perforomist] 20 mcg INHALATION RT-BID Fluticasone Nasal [place] [Flonase Nasal [place]] 2 spr EA NOSTRIL HS PRN PRN Reason: Allergy Symptoms Budesonide [Pulmicort] 0.5 mg INHALATION RT-BID Lisinopril [Zestril] 5 mg PO DAILY Vitamin B Complex 1 cap PO DAILY Warfarin [Coumadin] 10 mg PO HS Discharge Medication List Atorvastatin [Lipitor] 20 mg PO HS 05/02/17 [History] Latanoprost Ophth [Xalatan 0.005%] 1 drop BOTH EYES HS 01/11/19 [History] Budesonide [Pulmicort] 0.5 mg INHALATION RT-BID 03/11/19 [History] Fluticasone Nasal [place] [Flonase Nasal [place]] 2 spr EA NOSTRIL HS PRN 03/11/19 [History] Formoterol Fumarate [Perforomist] 20 mcg INHALATION RT-BID 03/11/19 [History] Furosemide [Lasix] 20 mg PO BID 03/11/19 [History] Lisinopril [Zestril] 5 mg PO DAILY 03/11/19 [History] Metoprolol Succinate (ER) [Toprol XL] 62.5 mg PO BID 03/11/19 [History] Spironolactone [Aldactone] 25 mg PO DAILY 03/11/19 [History] Vitamin B Complex 1 cap PO DAILY 04/30/19 [History] Warfarin [Coumadin] 10 mg PO HS 04/30/19 [History] predniSONE 0 mg PO DIRECTED #40 tab 05/02/19 [Rx] Follow up Appointment(s)/Referral(s): Arpita Arguello MD [Primary Care Provider] - 1-2 days Bran Quarles MD [STAFF PHYSICIAN] - 2 Weeks Discharge Disposition: HOME SELF-CARE
== END 2019-05-02 13:46 | disposition home or self-care (01) ==
LOC: EC 10:05 → 3SCARD 12:26 → 1SOBS 14:26
PROVIDERS: ADMIT Internal Medicine; ATTEND Internal Medicine
DX: J44.1 Chronic obstructive pulmonary disease with (acute) exacerbation (principal); R07.89 Other chest pain; I42.0 Dilated cardiomyopathy; I49.3 Ventricular premature depolarization; I08.1 Rheumatic disorders of both mitral and tricuspid valves; J96.11 Chronic respiratory failure with hypoxia; I11.0 Hypertensive heart disease with heart failure; I50.9 Heart failure, unspecified; I48.2 Chronic atrial fibrillation; E78.5 Hyperlipidemia, unspecified; R07.81 Pleurodynia; H40.9 Unspecified glaucoma; E66.9 Obesity, unspecified; Z68.35 Body mass index [BMI] 35.0-35.9, adult; M19.90 Unspecified osteoarthritis, unspecified site; Z99.81 Dependence on supplemental oxygen; Z79.01 Long term (current) use of anticoagulants; Z79.51 Long term (current) use of inhaled steroids; Z79.899 Other long term (current) drug therapy; Z87.01 Personal history of pneumonia (recurrent); Z87.09 Personal history of other diseases of the respiratory system; Z87.891 Personal history of nicotine dependence; Z97.3 Presence of spectacles and contact lenses; Z80.6 Family history of leukemia
CPT/HCPCS: 96365; 96366; 96376 ×3; 96375; 99285; 36415; 94660 ×2; 94640 ×6; 94760 ×2; 93005; 83880; 80061; 80053; 80048; 83735; 84484; 85025 ×2; 85610 ×2; 85730; 71046; G0378 ×4; C8929; S4990 ×3; J2930 ×3; Q9950; 93306

== ENCOUNTER 2019-08-21 22:24 | Inpatient (IN) | payer MEDICARE, BC ==
[2019-08-21 23:03] LABS: INR 1.8 (<1.2); Prothrombin Time 17.5 sec (9.0-12.0)
[2019-08-21 23:04] LABS: Anisocytosis Slight; Basophils # (A) 0.2 k/uL (0-0.2); Basophils % (A) 1 %; Eosinophils # (A) 0.5 k/uL (0-0.7); Eosinophils % (A) 3 %; HCT 31.1 % (39.0-53.0); Hypochromasia Marked; Lymphocytes # (A) 1.7 k/uL (1.0-4.8); Lymphocytes % (A) 11 %; MCH 24.7 pg (25.0-35.0); MCHC 28.8 g/dL (31.0-37.0); MCV 85.8 fL (80.0-100.0); Monocytes # (A) 1.3 k/uL (0-1.0); Monocytes % (A) 8 %; Neutrophils # (A) 11.6 k/uL (1.3-7.7); Neutrophils % (A) 74 %; Platelet Count 430 k/uL (150-450); RBC 3.63 m/uL (4.30-5.90); RDW 16.5 % (11.5-15.5); WBC 15.6 k/uL (3.8-10.6)
[2019-08-21 23:06] LABS: Albumin 3.6 g/dL (3.5-5.0); Calcium 8.6 mg/dL (8.4-10.2); Magnesium 2.3 mg/dL (1.6-2.3); Potassium 5.2 mmol/L (3.5-5.1); Total Bilirubin 0.3 mg/dL (0.2-1.3); Total Protein 6.4 g/dL (6.3-8.2)
--- NOTE | 2019-08-21 23:18 | ED ---
SOB HPI - General Chief Complaint: Shortness of Breath Stated Complaint: [place] Time Seen by Provider: 08/21/19 22:28 Source: patient, family, EMS Mode of arrival: EMS Limitations: no limitations - History of Present Illness Initial Comments: Reginald is a 69yo male with extensive PMH most significant for oxygen dependent COPD and CHF. Patient presents to the ER today via EMS for evaluation of worsening shortness of breath. Patient states that yesterday during the day he noticed worsening cough and a sharp pain in his left chest which was worse with deep inspiration. Patient reports he has been doing 8-9 breathing treatments daily with minimal improvement in SOB. Today he felt that he couldnt catch his breath despite breathing treatments. EMS reports the patient was hypoxic despite supplemental oxygen use, he was given 2 duoneb, 1 albuterol and 125mg IV solumedrol en route to the hospital. MD Complaint: shortness of breath - Related Data Home Medications Medication Instructions Recorded Confirmed Atorvastatin [Lipitor] 20 mg PO HS 05/02/17 04/30/19 Latanoprost Ophth [Xalatan 0.005%] 1 drop BOTH EYES HS 01/11/19 04/30/19 Budesonide [Pulmicort] 0.5 mg INHALATION RT-BID 03/11/19 04/30/19 Fluticasone Nasal [place] [Flonase 2 spr EA NOSTRIL HS PRN 03/11/19 04/30/19 Nasal [place]] Formoterol Fumarate [Perforomist] 20 mcg INHALATION RT-BID 03/11/19 04/30/19 Furosemide [Lasix] 20 mg PO BID 03/11/19 04/30/19 Lisinopril [Zestril] 5 mg PO DAILY 03/11/19 04/30/19 Metoprolol Succinate (ER) [Toprol 62.5 mg PO BID 03/11/19 04/30/19 XL] Spironolactone [Aldactone] 25 mg PO DAILY 03/11/19 04/30/19 Vitamin B Complex 1 cap PO DAILY 04/30/19 04/30/19 Warfarin [Coumadin] 10 mg PO HS 04/30/19 04/30/19 Previous Rx's Medication Instructions Recorded predniSONE 0 mg PO DIRECTED #40 tab 05/02/19 Allergies Allergy/AdvReac Type Severity Reaction Status Date / Time No Known Allergies Allergy Verified 04/30/19 10:16 Review of Systems ROS Statement: Those systems with pertinent positive or pertinent negative responses have been documented in the HPI. ROS Other: All systems not noted in ROS Statement are negative. Past Medical History Past Medical History: Atrial Fibrillation, Heart Failure, COPD, Eye Disorder, Hyperlipidemia, Hypertension, Osteoarthritis (OA), Pneumonia Additional Past Medical History / Comment(s): COPD,02 2 liters n/c at hs, previous history of acute respiratory failure related to COPD exacerbation/vented, glaucoma, obesity, chronic atrial fibrillation/flutter,wears contact lense rt eye and also weras glasses History of Any Multi-Drug Resistant Organisms: None Reported Past Surgical History: Ablation Additional Past Surgical History / Comment(s): right eye surgery.colonoscopy Past Anesthesia/Blood Transfusion Reactions: No Reported Reaction Past Psychological History: No Psychological Hx Reported Smoking Status: Former smoker Past Alcohol Use History: None Reported Past Drug Use History: None Reported - Past Family History Brother(s) Family Medical History: Cancer Additional Family Medical History / Comment(s): CMML General Exam Limitations: no limitations General appearance: alert, in no apparent distress, obese Head exam: Present: atraumatic Eye exam: Present: PERRL ENT exam: Present: normal exam Neck exam: Present: full ROM Respiratory exam: Present: wheezes Cardiovascular Exam: Present: normal rhythm, tachycardia GI/Abdominal exam: Present: soft. Absent: distended Rectal exam: Present: deferred Extremities exam: Present: full ROM, pedal edema. Absent: calf tenderness Back exam: Present: normal inspection Neurological exam: Present: alert, oriented X3 Psychiatric exam: Present: normal affect, normal mood Skin exam: Present: warm, dry, intact Course Vital Signs 08/21/19 08/21/19 08/22/19 22:25 22:30 00:24 Temperature 99.4 F 99 F Pulse Rate 113 H 105 H Respiratory 21 21 18 Rate Blood Pressure 128/78 117/59 O2 Sat by Pulse 95 99 Oximetry Medical Decision Making - Medical Decision Making elderly gentleman with CHF, COPD presenting in mild respiratory distress Received appropriate COPD treatment en route, oxygen saturation improving Labs and imaging ordered Labs with leukocytisos, anemia (chronic) CXR concerning for LLL infiltrate - no recent admission to hospital therefore will treat as CAP with Rocephin & Azithromycin Blood cultures obtained prior to antibioitcs Given patients subtherapeutic INR, pleuritic pain, SOB and tachycardia a PE study was obtained - no evidence of PE noted Patient admitted for COPD, Pneumonia, Sepsis - Patient had no signs of severe sepsis and has a history of CHF therefore fluid bolus was not indicated and in fact would likely be detrimental - Lab Data Result diagrams: 08/21/19 22:40 08/21/19 22:40 Lab Results 08/21/19 08/21/19 08/21/19 Range/Units 22:40 22:40 22:40 WBC 15.6 H (3.8-10.6) k/uL RBC 3.63 L (4.30-5.90) m/uL Hgb 9.0 L (13.0-17.5) gm/dL Hct 31.1 L (39.0-53.0) % MCV 85.8 (80.0-100.0) fL MCH 24.7 L (25.0-35.0) pg MCHC 28.8 L (31.0-37.0) g/dL RDW 16.5 H (11.5-15.5) % Plt Count 430 (150-450) k/uL Neutrophils % 74 % Lymphocytes % 11 % Monocytes % 8 % Eosinophils % 3 % Basophils % 1 % Neutrophils # 11.6 H (1.3-7.7) k/uL Lymphocytes # 1.7 (1.0-4.8) k/uL Monocytes # 1.3 H (0-1.0) k/uL Eosinophils # 0.5 (0-0.7) k/uL Basophils # 0.2 (0-0.2) k/uL Hypochromasia Marked Anisocytosis Slight PT (9.0-12.0) sec INR (<1.2) APTT (22.0-30.0) sec Sodium 141 (137-145) mmol/L Potassium 5.2 H (3.5-5.1) mmol/L Chloride 101 (98-107) mmol/L Carbon Dioxide 36 H (22-30) mmol/L Anion Gap 4 mmol/L BUN 23 H (9-20) mg/dL Creatinine 1.17 (0.66-1.25) mg/dL Est GFR (CKD-EPI)AfAm 74 (>60 ml/min/1.73 sqM) Est GFR (CKD-EPI)NonAf 64 (>60 ml/min/1.73 sqM) Glucose 111 H (74-99) mg/dL Calcium 8.6 (8.4-10.2) mg/dL Magnesium 2.3 (1.6-2.3) mg/dL Total Bilirubin 0.3 (0.2-1.3) mg/dL AST 19 (17-59) U/L ALT 17 L (21-72) U/L Alkaline Phosphatase 117 (38-126) U/L Troponin I (0.000-0.034) ng/mL NT-Pro-B Natriuret Pep 807 pg/mL Total Protein 6.4 (6.3-8.2) g/dL Albumin 3.6 (3.5-5.0) g/dL 08/21/19 08/21/19 Range/Units 22:40 22:40 WBC (3.8-10.6) k/uL RBC (4.30-5.90) m/uL Hgb (13.0-17.5) gm/dL Hct (39.0-53.0) % MCV (80.0-100.0) fL MCH (25.0-35.0) pg MCHC (31.0-37.0) g/dL RDW (11.5-15.5) % Plt Count (150-450) k/uL Neutrophils % % Lymphocytes % % Monocytes % % Eosinophils % % Basophils % % Neutrophils # (1.3-7.7) k/uL Lymphocytes # (1.0-4.8) k/uL Monocytes # (0-1.0) k/uL Eosinophils # (0-0.7) k/uL Basophils # (0-0.2) k/uL Hypochromasia Anisocytosis PT 17.5 H (9.0-12.0) sec INR 1.8 H (<1.2) APTT 30.0 (22.0-30.0) sec Sodium (137-145) mmol/L Potassium (3.5-5.1) mmol/L Chloride (98-107) mmol/L Carbon Dioxide (22-30) mmol/L Anion Gap mmol/L BUN (9-20) mg/dL Creatinine (0.66-1.25) mg/dL Est GFR (CKD-EPI)AfAm (>60 ml/min/1.73 sqM) Est GFR (CKD-EPI)NonAf (>60 ml/min/1.73 sqM) Glucose (74-99) mg/dL Calcium (8.4-10.2) mg/dL Magnesium (1.6-2.3) mg/dL Total Bilirubin (0.2-1.3) mg/dL AST (17-59) U/L ALT (21-72) U/L Alkaline Phosphatase (38-126) U/L Troponin I 0.032 (0.000-0.034) ng/mL NT-Pro-B Natriuret Pep pg/mL Total Protein (6.3-8.2) g/dL Albumin (3.5-5.0) g/dL Disposition Clinical Impression: Congestive heart failure, Acute exacerbation of chronic obstructive pulmonary disease Disposition: ADMITTED IP TO THIS HOSP Condition: Serious
--- NOTE | 2019-08-21 23:31 | XR ---
EXAM: XR Chest, 2 Views CLINICAL HISTORY: Dyspnea. TECHNIQUE: Frontal and lateral views of the chest. COMPARISON: No relevant prior studies available. FINDINGS: Lungs: Patchy airspace disease noted medially at the left lower lobe, new since the previous study. Differential etiologies include atelectasis versus early pneumonia. Clinical correlation is advised. Pleural space: Unremarkable. No pneumothorax. Heart: Cardiomediastinal silhouette is unremarkable. Mediastinum: See above. Bones/joints: Osteopenia. Mild to moderate degenerative disc disease of the thoracic spine and kyphosis. Other findings: 03/11/2019. There is mild hypoaeration. IMPRESSION: New patchy airspace disease medially at the left lower lobe suggestive of either early or residual pneumonia versus atelectasis. Clinical correlation is advised. Osteopenia.
[2019-08-21] MEDS ORDERED: AZITHROMYCIN 500 MG in SODIUM CHLORIDE 0.9% 250 ML IVPB STA (23:34)
--- NOTE | 2019-08-22 01:50 | CT ---
EXAM: CT Angiography Chest With Intravenous Contrast CLINICAL HISTORY: ITS.REASON CT Reason: hypoxia, tachycardia, pleuritic chest pain TECHNIQUE: Axial computed tomographic angiography images of the chest with intravenous contrast using pulmonary embolism protocol. CTDI is 18.7 mGy and DLP is 735.2 mGy-cm. This CT exam was performed using one or more of the following dose reduction techniques: automated exposure control, adjustment of the mA and/or kV according to patient size, and/or use of iterative reconstruction technique. MIP reconstructed images were created and reviewed. COMPARISON: Plain film evaluation of the chest performed earlier today. FINDINGS: Pulmonary arteries: No central pulmonary embolism. Evaluation of the peripheral branch of the pulmonary arteries is limited, but grossly unremarkable. Aorta: Atherosclerotic disease of the thoracic aorta is noted. The thoracic aorta is otherwise unremarkable. No thoracic aortic aneurysm. Lungs: Evaluation of the right pulmonary parenchyma reveals subsegmental atelectasis posteriorly at the right lung base. Subsegmental atelectasis at the left lung base is noted. The airway is patent. No mass. Pleural space: A tiny right pleural effusion is noted. Small left pleural effusion is noted. No pneumothorax. Heart: Unremarkable. No cardiomegaly. No significant pericardial effusion. No evidence of RV dysfunction. Thyroid: The thyroid gland is unremarkable. Bones/joints: Evaluation of the visualized right ribs reveals no focal right rib abnormalities. Evaluation of the visualized left ribs reveals no focal left rib abnormalities. Moderate to severe degenerative disc disease of the thoracic spine is noted. Mild kyphosis. No acute fracture. No dislocation. Soft tissues: Unremarkable. Lymph nodes: Unremarkable. No enlarged lymph nodes. Liver: Mild fatty infiltration of the liver. Other findings: ASCVD. IMPRESSION: Small bilateral pleural effusions. Areas of atelectasis. ASCVD. No central pulmonary embolism. Limited evaluation of the peripheral branch of the pulmonary arteries. No peripheral pulmonary embolism is detected.
[2019-08-22] MEDS ORDERED: SYMBICORT 160-4.5 MCG INHALER INHALATION SCH (08:00)
[2019-08-22] MEDS ORDERED: predniSONE 20 MG TAB PO SCH (09:00)
[2019-08-22] MEDS: IPRATROPIUM-ALBUTEROL 3 ML NEB INHALATION PRN ×3 (09:29→20:07)
[2019-08-22] MEDS ORDERED: FLUTICASONE 50MCG/SPRAY NASAL 16GM EA NOSTRIL PRN (11:42)
[2019-08-22 13:10] LABS: Anisocytosis Slight; Basophils # (A) 0.1 k/uL (0-0.2); Basophils % (A) 0 %; Eosinophils % (A) 0 %; HCT 29.2 % (39.0-53.0); HGB 8.4 gm/dL (13.0-17.5); Hypochromasia Marked; Lymphocytes # (A) 0.8 k/uL (1.0-4.8); Lymphocytes % (A) 6 %; MCH 25.5 pg (25.0-35.0); MCHC 28.7 g/dL (31.0-37.0); MCV 88.8 fL (80.0-100.0); Mean Platelet Volume 5.5; Monocytes # (A) 0.3 k/uL (0-1.0); Monocytes % (A) 2 %; Neutrophils # (A) 12.3 k/uL (1.3-7.7); Neutrophils % (A) 91 %; Platelet Count 382 k/uL (150-450); Poikilocytosis Slight; RBC 3.29 m/uL (4.30-5.90); RDW 16.1 % (11.5-15.5); WBC 13.6 k/uL (3.8-10.6)
--- NOTE | 2019-08-22 13:35 | P.HPIM ---
History of Present Illness This is a pleasant 71-year-old gentleman with a history of advanced COPD uses 4 L of oxygen at home came in with complaints of shortness of breath and the pain in the left shoulder area and chest pain pleuritic increases with deep breathing and coughing PE was not evident on the CAT scan there is no significant pneumonia on the CAT scan patient does have minimal nonspecific infiltrate without any air bronchogram on the right lower lung limon. Patient denied any fever chills at home, patient does have significant wheezing patient did have leukocytosis. Patient is on Coumadin for Atrial fibrillation, INR is 1.8. Patient was started on systemic steroids and inhalational treatments. Patient does appear to have chronic diastolic dysfunction and RVSP in the past is 34 patient does have bilateral pedal edema as well. Patient was started on azithromycin and Rocephin as the ER physician believe patient may have pneumonia. is complaining of cough with yellowish sputum production Review of Systems REVIEW OF SYSTEMS: CONSTITUTIONAL: No fever, no malaise, no fatigue. HEENT: No recent visual problems or hearing problems. Denied any sore throat. CARDIOVASCULAR: No chest pain, orthopnea, PND, no palpitations, no syncope. PULMONARY: no hemoptysis. GASTROINTESTINAL: No diarrhea, no nausea, no vomiting, no abdominal pain. NEUROLOGICAL: No headaches, no weakness, no numbness. HEMATOLOGICAL: Denies any bleeding or petechiae. GENITOURINARY: Denies any burning micturition, frequency, or urgency. MUSCULOSKELETAL/RHEUMATOLOGICAL: Denies any joint pain, swelling, or any muscle pain. ENDOCRINE: Denies any polyuria or polydipsia. The rest of the 14-point review of systems is negative. Past Medical History Past Medical History: Atrial Fibrillation, Heart Failure, COPD, Eye Disorder, Hyperlipidemia, Hypertension, Osteoarthritis (OA), Pneumonia Additional Past Medical History / Comment(s): COPD,02 2 liters n/c at hs, previous history of acute respiratory failure related to COPD exacerbation/vented, glaucoma, obesity, chronic atrial fibrillation/flutter,wears contact lense rt eye and also weras glasses History of Any Multi-Drug Resistant Organisms: None Reported Past Surgical History: Ablation Additional Past Surgical History / Comment(s): right eye surgery.colonoscopy Past Anesthesia/Blood Transfusion Reactions: No Reported Reaction Past Psychological History: No Psychological Hx Reported Smoking Status: Former smoker Past Alcohol Use History: None Reported Past Drug Use History: None Reported - Past Family History Brother(s) Family Medical History: Cancer Additional Family Medical History / Comment(s): CMML Medications and Allergies Home Medications Medication Instructions Recorded Confirmed Type Atorvastatin [Lipitor] 20 mg PO HS 05/02/17 08/22/19 History Latanoprost Ophth [Xalatan 0.005%] 1 drop BOTH EYES HS 01/11/19 08/22/19 History Fluticasone Nasal [place] [Flonase 2 spr EA NOSTRIL HS PRN 03/11/19 08/22/19 History Nasal [place]] Formoterol Fumarate [Perforomist] 20 mcg INHALATION RT-BID 03/11/19 08/22/19 History Furosemide [Lasix] 20 mg PO BID 03/11/19 08/22/19 History Lisinopril [Zestril] 5 mg PO DAILY 03/11/19 08/22/19 History Metoprolol Succinate (ER) [Toprol 62.5 mg PO BID 03/11/19 08/22/19 History XL] Spironolactone [Aldactone] 25 mg PO DAILY 03/11/19 08/22/19 History Warfarin [Coumadin] 10 mg PO DIRECTED 04/30/19 08/22/19 History Albuterol Nebulized [Ventolin 2.5 mg INHALATION RT-QID 08/22/19 08/22/19 History Nebulized] Ipratropium Nebulized [Atrovent 0.5 mg INHALATION RT-QID 08/22/19 08/22/19 Histo ry Nebulized 0.2 MG/ML] Nicotine 14Mg/24Hr Patch [Habitrol 14 mg TRANSDERM DAILY 08/22/19 08/22/19 History 14Mg/24Hr Patch] Allergies Allergy/AdvReac Type Severity Reaction Status Date / Time No Known Allergies Allergy Verified 08/22/19 10:20 Physical Exam Vitals: Vital Signs Temp Pulse Pulse Resp BP BP Pulse Ox 08/22/19 11:17 97.5 F L 94 20 119/64 98 08/22/19 09:40 97 08/22/19 09:30 99 96 08/22/19 04:53 98.5 F 101 H 20 115/73 95 08/22/19 01:53 20 95 08/22/19 01:09 98.6 F 104 H 24 104/58 94 L 08/22/19 00:24 99 F 105 H 18 117/59 99 08/21/19 22:30 21 08/21/19 22:25 99.4 F 113 H 21 128/78 95 Intake and Output 08/21/19 08/22/19 08/22/19 22:59 06:59 14:59 Intake Total 940 Balance 940 Intake: Intake, IV Titration 350 Amount Azithromycin 500 mg In 250 Sodium Chloride 0.9% 250 ml @ 250 mls/hr IVPB ONCE STA Rx#:[id number] cefTRIAXone 1 gm In 100 Sodium Chloride 0.9% 50 ml @ 100 mls/hr IVPB ONCE STA Rx#:[id number] Oral 590 Other: Voiding Method Toilet Toilet Urinal Urinal # Voids 1 # Bowel Movements 1 Weight 116.573 kg PHYSICAL EXAMINATION: GENERAL: The patient is alert and oriented x3, not in any acute distress. Obese HEENT: Pupils are round and equally reacting to light. EOMI. No scleral icterus. No conjunctival pallor. Normocephalic, atraumatic. No pharyngeal erythema. No thyromegaly. CARDIOVASCULAR: S1 and S2 present. No murmurs, rubs, or gallops. PULMONARY: Significant expiratory wheezing on exam no crackles ABDOMEN: Soft, nontender, nondistended, normoactive bowel sounds. No palpable organomegaly. MUSCULOSKELETAL: No joint swelling or deformity. EXTREMITIES: No cyanosis, clubbing, or pedal edema. NEUROLOGICAL: Gross neurological examination did not reveal any focal deficits. SKIN: No rashes. Results CBC & Chem 7: 08/22/19 12:08 08/21/19 22:40 Labs: Abnormal Lab Results - Last 24 Hours (Table) 08/21/19 08/21/19 08/21/19 Range/Units 22:40 22:40 22:40 WBC 15.6 H (3.8-10.6) k/uL RBC 3.63 L (4.30-5.90) m/uL Hgb 9.0 L (13.0-17.5) gm/dL Hct 31.1 L (39.0-53.0) % MCH 24.7 L (25.0-35.0) pg MCHC 28.8 L (31.0-37.0) g/dL RDW 16.5 H (11.5-15.5) % Neutrophils # 11.6 H (1.3-7.7) k/uL Lymphocytes # (1.0-4.8) k/uL Monocytes # 1.3 H (0-1.0) k/uL PT 17.5 H (9.0-12.0) sec INR 1.8 H (<1.2) Potassium 5.2 H (3.5-5.1) mmol/L Carbon Dioxide 36 H (22-30) mmol/L BUN 23 H (9-20) mg/dL Glucose 111 H (74-99) mg/dL ALT 17 L (21-72) U/L 08/22/19 Range/Units 12:08 WBC 13.6 H (3.8-10.6) k/uL RBC 3.29 L (4.30-5.90) m/uL Hgb 8.4 L (13.0-17.5) gm/dL Hct 29.2 L (39.0-53.0) % MCH (25.0-35.0) pg MCHC 28.7 L (31.0-37.0) g/dL RDW 16.1 H (11.5-15.5) % Neutrophils # 12.3 H (1.3-7.7) k/uL Lymphocytes # 0.8 L (1.0-4.8) k/uL Monocytes # (0-1.0) k/uL PT (9.0-12.0) sec INR (<1.2) Potassium (3.5-5.1) mmol/L Carbon Dioxide (22-30) mmol/L BUN (9-20) mg/dL Glucose (74-99) mg/dL ALT (21-72) U/L Thrombosis Risk Factor Assmnt - Choose All That Apply Each Factor Represents 1 point: Abnormal pulmonary function (COPD), Obesity (BMI >25), Serious lung disease incl. pneumonia (< 1month), Swollen legs (current) Each Risk Factor Represents 2 Points: Age 61-74 years Other congenital or acquired thrombophilia - If yes, enter type in comment: No Thrombosis Risk Factor Assessment Total Risk Factor Score: 6 Thrombosis Risk Factor Assessment Level: High Risk Assessment and Plan Plan: -Acute on chronic hypercapnic respiratory failure secondary to COPD exacerbation patient will be continued on systemic steroids and inhalational treatments. Owen reece appears to have bronchitis my suspicion is low for pneumonia although patient had does have pleuritic chest pain from coughing rule out pulmonary embolism. -Hyperkalemia: Secondary to his Aldactone which will be discontinued -Bilateral pedal edema may be related to chronic diastolic dysfunction with acute exacerbation patient does not appear to have pulmonary hypertension patient will be switched to IV Lasix 20 mg twice a day from oral Lasix. -Atrial fibrillation presently rate controlled patient will be resumed on his home medications along with Coumadin with the same dose as Coumadin tracks with the steroids and antibiotics I'm expecting his INR to go the same dose of steroids he is on at home presently subtherapeutic at 1.8. We'll check recheck the INR tomorrow. -Congestive heart failure chronic diastolic dysfunction with mild acute examination -Hyperlipidemia -Hypertension -GI prophylaxis with Pepcid
--- NOTE | 2019-08-22 14:24 | P.CNPUL ---
History of Present Illness Consult date: 08/22/19 Reason for consult: dyspnea, COPD History of present illness: 3-year-old male patient who is known to me regarding his advanced oxygen- dependent COPD and chronic hypoxic respiratory failure, came into the hospital because of worsening shortness of breath and a congested cough with dyspnea and wheeze and significant limitation in his exercise capacity. His breathing was also painful. No fever. No chills. There has been significant weight gain and increased edema lower extremities bilaterally and for that reason the patient came into the hospital. The patient had a CT angiogram of the chest and it showed no evidence of any pulmonary embolism. PT/INR was subtherapeutic. In the ED, he was given a combination of Rocephin and Zithromax and he was hospitalized for further evaluation and treatment. Note that the patient has advanced COPD. The patient also has congestion heart failure with an ejection fraction of 30-35% consistent with systolic heart failure. He has history of atrial fibrillation/flutter. He has obstructive sleep apnea which is severe with an AHI of 47.7. He has a CPAP machine at home which is set at a pressure of 14 cm of water. He is typically on 4 L of oxygen by nasal cannula. Review of Systems CONSTITUTIONAL: Denies any recent significant weight loss or weight gain. EYES: Denies change in vision. EARS, NOSE, MOUTH, THROAT: Denies headaches, denies sore throat. CARDIOVASCULAR: Denies chest pain, palpitations or syncopal episodes. RESPIRATORY: Positive for shortness of breath, cough, congestion no hemoptysis. GASTROINTESTINAL: Denies change in appetite, denies abdominal pain GENITOURINARY: Denies hematuria, denies infections. MUSKULOSKELETAL: Denies pain, there is significant amount of lower extremity edema pitting in the lower extremities bilaterally INTEGUMENTARY: Denies rash, denies eczema. NEUROLOGICAL: Denies recent memory loss, no recent seizure activity. PSYCHIATRIC: Denies anxiety, denies depression. HEMATOLOGIC/LYMPHATIC: Denies anemia, denies enlarged lymph nodes. Past Medical History Past Medical History: Atrial Fibrillation, Heart Failure, COPD, Eye Disorder, Hyperlipidemia, Hypertension, Osteoarthritis (OA), Pneumonia Additional Past Medical History / Comment(s): COPD,02 4 liters n/c at hs, previous history of acute respiratory failure related to COPD exacerbation/vented, glaucoma, obesity, chronic atrial fibrillation/flutter,wears contact lense rt eye and also weras glasses History of Any Multi-Drug Resistant Organisms: None Reported Past Surgical History: Ablation Additional Past Surgical History / Comment(s): right eye surgery.colonoscopy Past Anesthesia/Blood Transfusion Reactions: No Reported Reaction Past Psychological History: No Psychological Hx Reported Smoking Status: Former smoker Past Alcohol Use History: None Reported Past Drug Use History: None Reported - Past Family History Brother(s) Family Medical History: Cancer Additional Family Medical History / Comment(s): CM Medications and Allergies Home Medications Medication Instructions Recorded Confirmed Type Atorvastatin [Lipitor] 20 mg PO HS 05/02/17 08/22/19 History Latanoprost Ophth [Xalatan 0.005%] 1 drop BOTH EYES HS 01/11/19 08/22/19 History Fluticasone Nasal [place] [Flonase 2 spr EA NOSTRIL HS PRN 03/11/19 08/22/19 History Nasal [place]] Formoterol Fumarate [Perforomist] 20 mcg INHALATION RT-BID 03/11/19 08/22/19 History Furosemide [Lasix] 20 mg PO BID 03/11/19 08/22/19 History Lisinopril [Zestril] 5 mg PO DAILY 03/11/19 08/22/19 History Metoprolol Succinate (ER) [Toprol 62.5 mg PO BID 03/11/19 08/22/19 History XL] Spironolactone [Aldactone] 25 mg PO DAILY 03/11/19 08/22/19 History Warfarin [Coumadin] 10 mg PO DIRECTED 04/30/19 08/22/19 History Albuterol Nebulized [Ventolin 2.5 mg INHALATION RT-QID 08/22/19 08/22/19 History Nebulized] Ipratropium Nebulized [Atrovent 0.5 mg INHALATION RT-QID 08/22/19 08/22/19 History Nebulized 0.2 MG/ML] Nicotine 14Mg/24Hr Patch [Habitrol 14 mg TRANSDERM DAILY 08/22/19 08/22/19 History 14Mg/24Hr Patch] Allergies Allergy/AdvReac Type Severity Reaction Status Date / Time No Known Allergies Allergy Verified 08/22/19 10:20 Physical Exam Vitals: Vital Signs Temp Pulse Pulse Resp BP BP Pulse Ox 08/22/19 11:17 97.5 F L 94 20 119/64 98 08/22/19 09:40 97 08/22/19 09:30 99 96 08/22/19 04:53 98.5 F 101 H 20 115/73 95 08/22/19 01:53 20 95 08/22/19 01:09 98.6 F 104 H 24 104/58 94 L 08/22/19 00:24 99 F 105 H 18 117/59 99 08/21/19 22:30 21 08/21/19 22:25 99.4 F 113 H 21 128/78 95 Intake and Output 08/21/19 08/22/19 08/22/19 22:59 06:59 14:59 Intake Total 940 Balance 940 Intake: Intake, IV Titration 350 Amount Azithromycin 500 mg In 250 Sodium Chloride 0.9% 250 ml @ 250 mls/hr IVPB ONCE STA Rx#:[id number] cefTRIAXone 1 gm In 100 Sodium Chloride 0.9% 50 ml @ 100 mls/hr IVPB ONCE STA Rx#:[id number] Oral 590 Other: Voiding Method Toilet Toilet Urinal Urinal # Voids 1 # Bowel Movements 1 Weight 116.573 kg GENERAL EXAM: Obese. Alert, active, comfortable in no apparent distress. On 4 L nasal cannula. HEAD: Normocephalic. EYES: Normal reaction of pupils, equal size. NOSE: Clear with pink turbinates. THROAT: Crowding the posterior pharynx. No erythema or exudates. NECK: No masses, no JVD. CHEST: No chest wall deformity. LUNGS: Breath sounds bilaterally along with prolongation of expiratory phase of breathing and diffuse expiratory wheezes throughout the lung his bilaterally. CVS: S1 and S2 normal with no audible murmur, regular rhythm. ABDOMEN: No hepatosplenomegaly, normal bowel sounds, no guarding or rigidity. SPINE: No scoliosis or deformity SKIN: No rashes CENTRAL NERVOUS SYSTEM: No focal deficits, tone is normal in all 4 extremities. EXTREMITIES: There is +2 pitting edema in lower extremities bilaterally and there is significant peripheral edema. No clubbing, no cyanosis. Peripheral pulses are intact. Results - Laboratory Findings CBC and BMP: 08/22/19 12:08 08/21/19 22:40 PT/INR, D-dimer PT 17.5 sec (9.0-12.0) H 08/21/19 22:40 INR 1.8 (<1.2) H 08/21/19 22:40 Abnormal lab findings: Abnormal Labs 08/21/19 08/21/19 08/21/19 22:40 22:40 22:40 WBC 15.6 H RBC 3.63 L Hgb 9.0 L Hct 31.1 L MCH 24.7 L MCHC 28.8 L RDW 16.5 H Neutrophils # 11.6 H Lymphocytes # Monocytes # 1.3 H PT 17.5 H INR 1.8 H Potassium 5.2 H Carbon Dioxide 36 H BUN 23 H Glucose 111 H ALT 17 L 08/22/19 12:08 WBC 13.6 H RBC 3.29 L Hgb 8.4 L Hct 29.2 L MCH MCHC 28.7 L RDW 16.1 H Neutrophils # 12.3 H Lymphocytes # 0.8 L Monocytes # PT INR Potassium Carbon Dioxide BUN Glucose ALT - Diagnostic Findings Chest x-ray: image reviewed CT scan - chest: image reviewed Assessment and Plan Plan: #1 shortness of breath, multifactorial. The patient has an acute COPD exacerbation in addition to that the patient has signs of decompensated heart failure with significant lower extremity edema that has accumulated since his last admission and the patient has +2 pitting edema lower extremities bilaterally. CT angiogram was reviewed and there is no evidence of any pulmonary embolism. evidence of any pneumonia at this point in time. The patient has a congested cough and mucus. #2 Acute on chronic trach respiratory failure secondary to an acute exacerbation of chronic obstructive pulmonary disease. #3 Obstructive sleep apnea, severe with an AHI of 47.7, to be set up on CPAP at 14 cm of water [facility]. #4 Severe chronic obstructive pulmonary disease with previous FEV1 value 35% of predicted. Most recent FEV1 up to 41% post treatment. #5 sonic heart failure with an ejection fraction of 30-35% and increased lower extremity edema, although a follow-up exam showed improvement in the LV function. As such is reasonable to repeat another echocardiogram to evaluate on the patient's LV function specially that there are signs of heart failure at this point in time. BNP level is slightly elevated. #6 Chronic atrial fibrillation, anticoagulated with warfarin. INR is slightly subtherapeutic #7. Lower extremity edema #8 Obesity. Plan Continue bronchodilators. I'm going to put the patient on a combination of DuoNeb nebulized treatments around the clock. Put the patient a combination of Pulmicort Respules and Perforomist nebulized treatments twice a day. Oral Levaquin 750 mg by mouth daily. Increase the Lasix to 40 mg every 12 hours IV and may even consider Lasix drip if he continues to have increased edema. Check a urinalysis. Monitor PT/INR. Obtain a sputum Gram stain and culture. Prognosis poor baseline above-mentioned comorbidities. We'll continue to follow.
[2019-08-22] MEDS: FUROSEMIDE 10 MG/ML 4 ML VIAL IV SCH ×2 (14:48→23:03)
[2019-08-22] MEDS: methylPREDNISolone SOD SUCCI 125 MG/2 ML VIAL IV SCH ×3 (14:48→23:37)
[2019-08-22] MEDS ORDERED: LEVOFLOXACIN 750 MG TAB PO SCH (15:00)
[2019-08-22 16:04] LABS: Appearance,Urine Clear (Clear); Bilirubin,Urine Negative (Negative); Blood,Urine Negative (Negative); Color,Urine Yellow; Glucose,Urine (UA) Trace (Negative); Ketones,Urine Negative (Negative); Leukocyte Esterase,Urine Negative (Negative); Nitrite,Urine Negative (Negative); PH, Urine 5.5 (5.0-8.0); Protein,Urine Trace (Negative); Specific Gravity,Urine 1.032 (1.001-1.035); Urobilinogen,Urine <2.0 mg/dL (<2.0)
[2019-08-22] MEDS ORDERED: WARFARIN 10 MG TAB PO ONE (18:00)
[2019-08-22] MEDS ORDERED: FORMOTEROL FUMARATE 20 MCG/2 ML NEBU INHALATION SCH (20:00)
[2019-08-22] MEDS: BUDESONIDE 0.5 MG/2 ML NEBU INHALATION SCH (20:07)
[2019-08-22] MEDS: FORMOTEROL FUMARATE 20 MCG/2 ML NEBU INHALATION SCH (20:07)
[2019-08-22] MEDS ORDERED: FUROSEMIDE 10 MG/ML 2 ML VIAL IV SCH (21:00)
[2019-08-22] MEDS ORDERED: FUROSEMIDE 20 MG TAB PO SCH (21:00)
[2019-08-22] MEDS: LATANOPROST 0.005% OPHTH DROPS 2.5 ML BTL BOTH EYES SCH (21:08)
[2019-08-22] MEDS: FAMOTIDINE 20 MG TAB PO SCH (21:09)
[2019-08-22] MEDS: ATORVASTATIN 20 MG TAB PO SCH (21:09)
[2019-08-22] MEDS: METOPROLOL SUCCINATE (ER) 25 MG TAB.ER.24H PO SCH (21:11)
[2019-08-22] MEDS: NICOTINE 14MG/24HR PATCH TRANSDERM SCH (23:07)
[2019-08-23] MEDS: IPRATROPIUM-ALBUTEROL 3 ML NEB INHALATION PRN ×7 (00:02→23:39)
[2019-08-23] MEDS: methylPREDNISolone SOD SUCCI 125 MG/2 ML VIAL IV SCH ×4 (05:39→23:37)
[2019-08-23] MEDS: METOPROLOL SUCCINATE (ER) 25 MG TAB.ER.24H PO SCH ×2 (07:36→21:15)
[2019-08-23] MEDS: FAMOTIDINE 20 MG TAB PO SCH ×2 (07:36→21:16)
[2019-08-23] MEDS: FUROSEMIDE 10 MG/ML 4 ML VIAL IV SCH ×2 (07:37→21:16)
[2019-08-23] MEDS: NICOTINE 14MG/24HR PATCH TRANSDERM SCH (07:37)
[2019-08-23 07:49] LABS: Anisocytosis Slight; HCT 26.4 % (39.0-53.0); HGB 7.5 gm/dL (13.0-17.5); Hypochromasia Marked; MCH 24.9 pg (25.0-35.0); MCHC 28.5 g/dL (31.0-37.0); MCV 87.1 fL (80.0-100.0); Mean Platelet Volume 6.5; Platelet Count 410 k/uL (150-450); RBC 3.03 m/uL (4.30-5.90); RDW 16.5 % (11.5-15.5)
[2019-08-23 07:56] LABS: INR 2.5 (<1.2); Prothrombin Time 23.9 sec (9.0-12.0)
[2019-08-23] MEDS: BUDESONIDE 0.5 MG/2 ML NEBU INHALATION SCH ×2 (08:24→20:29)
[2019-08-23] MEDS: FORMOTEROL FUMARATE 20 MCG/2 ML NEBU INHALATION SCH ×2 (08:24→20:29)
[2019-08-23] MEDS ORDERED: NICOTINE 14MG/24HR PATCH TRANSDERM SCH (09:00)
[2019-08-23] MEDS ORDERED: SPIRONOLACTONE 25 MG TAB PO SCH (09:00)
[2019-08-23 10:47] LABS: Calcium 8.2 mg/dL (8.4-10.2); Potassium 5.1 mmol/L (3.5-5.1)
--- NOTE | 2019-08-23 13:00 | CDI ---
Documentation Clarification Form Date: 08/23/2019 12:42:41 PM From: Michelle Preston Phone: '[phone] Admit Date: 08/21/2019 11:50:00 PM Patient Name: Reginald Comer Visit Number: [id number] Discharge Date: ATTENTION: The Clinical Documentation Specialists (CDI) and [facility] Coding Staff appreciate your assistance in clarifying documentation. Please respond to the clarification below the line at the bottom and electronically sign. The CDI & [facility] Coding staff will review the response and follow-up if needed. Please note: Queries are made part of the Legal Health Record. If you have any questions, please contact the author of this message via ITS. Dr. Jose Guadalupe Mcadams Conflicting documentation has been found in the medical record: Your H &P 08/22 Congestive heart failure chronic diastolic dysfunction with mild acute examination Pulmonary Consult 08/22 The patient also has congestion heart failure with an ejection fraction of 30-35% consistent with systolic heart failure. History/Risk Factors: 69-year-old male presents to the ED via EMS for worsening shortness of breath. Medical history CHF: COPD home oxygen dependence Clinical Indicators: Echo 05/01/2019 mild concentric left ventricular hypertrophy. Overall left ventricular systolic function is normal with, an EF between 55-60% EKG 08/21/2019 sinus tachycardia BNP 807 Home Meds Zestril 5mg po daily Lasix 20mg po bid ; Aldactone 25mg po daily; Treatment: 08/22/2019 Lasix 40mg q 12 hours; Toprol xl 62.5mg po bid; In your opinion, what is the most clinically appropriate diagnosis for this patient? * Acute on Chronic Diastolic Heart Failure * Acute on Chronic Systolic Heart Failure * Other explanation of clinical findings * Unable to determine (no explanation for clinical findings) (Last Revision: January 2018) No evidence of systolic dysfunction patient has diastolic dysfunction MTDD
--- NOTE | 2019-08-23 13:31 | P.PN ---
Subjective Progress Note Date: 08/23/19 Principal diagnosis: Acute exacerbation of COPD, and acute on chronic systolic congestive heart failure 69-year-old male patient who is known to me regarding his advanced oxygen-de pendent COPD and chronic hypoxic respiratory failure, came into the hospital because of worsening shortness of breath and a congested cough with dyspnea and wheeze and significant limitation in his exercise capacity. His breathing was also painful. No fever. No chills. There has been significant weight gain and increased edema lower extremities bilaterally and for that reason the patient came into the hospital. The patient had a CT angiogram of the chest and it showed no evidence of any pulmonary embolism. PT/INR was subtherapeutic. In the ED, he was given a combination of Rocephin and Zithromax and he was hospitalized for further evaluation and treatment. Note that the patient has a dvanced COPD. The patient also has congestion heart failure with an ejection fraction of 30-35% consistent with systolic heart failure. He has history of atrial fibrillation/flutter. He has obstructive sleep apnea which is severe with an AHI of 47.7. He has a CPAP machine at home which is set at a pressure of 14 cm of water. He is typically on 4 L of oxygen by nasal cannula. Patient was reevaluated today on 08/23/2019, continues to have some shortness of breath, intermittent episodes of cough and wheezing. Patient was seen by Dr. Quarles yesterday, and he felt that the patient had COPD exacerbation and some component of LV dysfunction and acute on chronic congestive heart failure. Mary Beth kendrick has multiple comorbidities including LV dysfunction, COPD, chronic atrial fibrillation, obstructive sleep apnea syndrome, and chronic hypoxic respiratory failure normally maintained on 4 L nasal cannula. Reviewed his medications, patient is presently on bronchodilators, antibiotics, and diuretics. Slight improvement, but he has a long way to go yet. Labs showed the lips of 17.0 hemoglobin is 7.5, electrolytes are normal renal profile showed a BUN of [address] of the chest showed small bilateral pleural effusions, and atelectasis. Objective - Vital Signs Vital signs: Vital Signs Temp 98.7 F 08/23/19 11:32 Pulse 100 08/23/19 11:59 Resp 16 08/23/19 11:32 BP 118/67 08/23/19 11:32 Pulse Ox 96 08/23/19 11:32 Intake & Output 08/22/19 08/23/19 08/23/19 18:59 06:59 18:59 Intake Total 80 110 Output Total 400 900 500 Balance -320 -165 -500 Intake: IV 80 110 .9@10 80 110 Output: Urine 400 900 500 Other: Voiding Method Urinal Urinal Urinal - Exam GENERAL: Revealed a 69-year-old white male, obese, on few liters nasal cannula, in no distress. Head: Atraumatic normocephalic. HEENT: PERRLA, EOMI, no active, short obese neck, Mallampati class IV.. CARDIOVASCULAR: Irregular irregular rhythm, no S3 gallop, no murmur.. PULMONARY: Crackles and rhonchi and wheezes noted bilaterally. Symmetrical c hest expansion. No chest wall tenderness ABDOMEN: Obese soft nontender no megaly no rebound no guarding.. MUSCULOSKELETAL: No deformities, no limitation in range of motion. EXTREMITIES: 2+ bipedal edema, no clubbing, no cyanosis.. NEUROLOGICAL: Alert and oriented 3 focal neurologic deficits. SKIN: No rashes. Psychiatric: Normal mood affect and normal mental status examination. - Labs CBC & Chem 7: 08/23/19 07:25 08/23/19 07:25 Labs: Abnormal Lab Results - Last 24 Hours (Table) 08/22/19 08/23/19 08/23/19 Range/Units 15:50 07:25 07:25 WBC 17.0 H (3.8-10.6) k/uL RBC 3.03 L (4.30-5.90) m/uL Hgb 7.5 L (13.0-17.5) gm/dL Hct 26.4 L (39.0-53.0) % MCH 24.9 L (25.0-35.0) pg MCHC 28.5 L (31.0-37.0) g/dL RDW 16.5 H (11.5-15.5) % PT 23.9 H (9.0-12.0) sec INR 2.5 H (<1.2) Chloride (98-107) mmol/L Carbon Dioxide (22-30) mmol/L BUN (9-20) mg/dL Creatinine (0.66-1.25) mg/dL Glucose (74-99) mg/dL Calcium (8.4-10.2) mg/dL Urine Protein Trace H (Negative) Urine Glucose (UA) Trace H (Negative) 08/23/19 Range/Units 07:25 WBC (3.8-10.6) k/uL RBC (4.30-5.90) m/uL Hgb (13.0-17.5) gm/dL Hct (39.0-53.0) % MCH (25.0-35.0) pg MCHC (31.0-37.0) g/dL RDW (11.5-15.5) % PT (9.0-12.0) sec INR (<1.2) Chloride 97 L (98-107) mmol/L Carbon Dioxide 38 H (22-30) mmol/L BUN 34 H (9-20) mg/dL Creatinine 1.32 H (0.66-1.25) mg/dL Glucose 191 H (74-99) mg/dL Calcium 8.2 L (8.4-10.2) mg/dL Urine Protein (Negative) Urine Glucose (UA) (Negative) Microbiology - Last 24 Hours (Table) 08/21/19 00:14 Blood Culture - Preliminary Blood No Growth after 24 hours Assessment and Plan Assessment: Impression: 1 acute on chronic hypoxic respiratory failure 2 acute exacerbation of COPD 3 acute on chronic systolic congestive heart failure and history of LV dysfunction 4 obstructive sleep apnea syndrome 5 history of severe COPD, FEV1 is 35% of the predicted 6 LV dysfunction with ejection fraction of 30-35%. 7 chronic atrial fibrillation 8 chronic cor pulmonale Recommendation: Continue bronchodilators. Continue steroids Continue diuretics Continue to monitor renal profile and electrolytes on a daily basis Continue antibiotics patient is presently on Levaquin, Continue oxygen and titrate accordingly We'll continue to follow. Prognosis is guarded. Time with Patient: Less than 30
--- NOTE | 2019-08-23 14:55 | P.PN ---
Subjective Progress Note Date: 08/23/19 Principal diagnosis: This is a pleasant 71-year-old gentleman with a history of advanced COPD uses 4 L of oxygen at home came in with complaints of shortness of breath and the pain in the left shoulder area and chest pain pleuritic increases with deep breathing and coughing PE was not evident on the CAT scan there is no significant pneumonia on the CAT scan patient does have minimal nonspecific infiltrate without any air bronchogram on the right lower lung limon. Patient denied any fever chills at home, patient does have significant wheezing patient did have leukocytosis. Patient is on Coumadin for Atrial fibrillation, INR is 1.8. Patient was started on systemic steroids and inhalational treatments. Patient does appear to have chronic diastolic dysfunction and patient does have bilateral pedal edema as well. Patient was started on azithromycin and Rocephin as the ER physician believed patient may have pneumonia. Patient is complaining of cough with yellowish sputum production 08/23/2019 Patient is sitting up at the site of the bed in no acute distress currently maintaining oxygen saturations in the 90s on 4 L via nasal cannula. Patient states he normally wears 4 L of oxygen at home. No acute overnight issues. Pulmonary is following. Patient is currently maintained on IV steroids as well as IV Lasix at this time. Currently patient denies any chest pain or palpitations. Patient states that he continues to be short of breath with exertion and needs to sit often to catch his breath. Patient denies any nausea or vomiting and is tolerating diet. Patient was getting quite winded when speaking with him today. Objective - Vital Signs Vital signs: Vital Signs Temp 98.7 F 08/23/19 11:32 Pulse 100 08/23/19 11:59 Resp 16 08/23/19 11:32 BP 118/67 08/23/19 11:32 Pulse Ox 96 08/23/19 11:32 Intake & Output 08/22/19 08/23/19 08/23/19 18:59 06:59 18:59 Intake Total 80 110 50 Output Total 400 900 500 Balance -320 -790 -450 Intake: IV 80 110 50 .9@10 80 110 50 Output: Urine 400 900 500 Other: Voiding Method Urinal Urinal Urinal - Exam GENERAL: The patient is alert and oriented x3, not in any acute distress. Obese HEENT: Pupils are round and equally reacting to light. EOMI. No scleral icterus. No conjunctival pallor. Normocephalic, atraumatic. No pharyngeal erythema. No t hyromegaly. CARDIOVASCULAR: S1 and S2 present. No murmurs, rubs, or gallops. PULMONARY: Significant expiratory wheezing on exam with no crackles noted. ABDOMEN: Soft, nontender, nondistended, normoactive bowel sounds. No palpable organomegaly. MUSCULOSKELETAL: No joint swelling or deformity. EXTREMITIES: No cyanosis, clubbing, or pedal edema. Mild lower extremity edema that is slightly improved. NEUROLOGICAL: Gross neurological examination did not reveal any focal deficits. SKIN: No rashes. - Labs CBC & Chem 7: 08/23/19 07:25 08/23/19 07:25 Labs: Abnormal Lab Results - Last 24 Hours (Table) 08/22/19 08/23/19 08/23/19 Range/Units 15:50 07:25 07:25 WBC 17.0 H (3.8-10.6) k/uL RBC 3.03 L (4.30-5.90) m/uL Hgb 7.5 L (13.0-17.5) gm/dL Hct 26.4 L (39.0-53.0) % MCH 24.9 L (25.0-35.0) pg MCHC 28.5 L (31.0-37.0) g/dL RDW 16.5 H (11.5-15.5) % PT 23.9 H (9.0-12.0) sec INR 2.5 H (<1.2) Chloride (98-107) mmol/L Carbon Dioxide (22-30) mmol/L BUN (9-20) mg/dL Creatinine (0.66-1.25) mg/dL Glucose (74-99) mg/dL Calcium (8.4-10.2) mg/dL Urine Protein Trace H (Negative) Urine Glucose (UA) Trace H (Negative) 08/23/19 Range/Units 07:25 WBC (3.8-10.6) k/uL RBC (4.30-5.90) m/uL Hgb (13.0-17.5) gm/dL Hct (39.0-53.0) % MCH (25.0-35.0) pg MCHC (31.0-37.0) g/dL RDW (11.5-15.5) % PT (9.0-12.0) sec INR (<1.2) Chloride 97 L (98-107) mmol/L Carbon Dioxide 38 H (22-30) mmol/L BUN 34 H (9-20) mg/dL Creatinine 1.32 H (0.66-1.25) mg/dL Glucose 191 H (74-99) mg/dL Calcium 8.2 L (8.4-10.2) mg/dL Urine Protein (Negative) Urine Glucose (UA) (Negative) Microbiology - Last 24 Hours (Table) 08/21/19 00:14 Blood Culture - Preliminary Blood No Growth after 24 hours Assessment and Plan Assessment: -Acute on chronic hypercapnic respiratory failure secondary to COPD exacerbation. patient will be continued on systemic steroids and inhalational treatments. Patient appears to have bronchitis, my suspicion is low for pneumonia although patient had does have pleuritic chest pain from coughing, rule out pulmonary embolism. Small bilateral pleural effusions with an area of atelectasis No evidence of pulmonary embolism noted on CT -Hyperkalemia: Secondary to his Aldactone which will be discontinued. Potassium today is 5.1 -Bilateral pedal edema may be related to chronic diastolic dysfunction with acute exacerbation patient does not appear to have pulmonary hypertension patient will be switched to IV Lasix 20 mg twice a day from oral Lasix. -Atrial fibrillation presently rate controlled patient will be resumed on his home medications along with Coumadin with the same dose as Coumadin tracks with the steroids and antibiotics. I'm expecting his INR to go the same dose of steroids he is on at home presently subtherapeutic at 1.8. We'll check recheck the INR tomorrow. INR is 2.5 today. Will continue to monitor closely. -Congestive heart failure chronic diastolic dysfunction with mild acute exacerbation; echo done in April 2019 showed overall left ventricular systolic function is normal with an EF between 55 and 60% with a trace of mitral and tricuspid regurgitation present.. -Hyperlipidemia -Hypertension -GI prophylaxis with Pepcid
[2019-08-23] MEDS ORDERED: WARFARIN 2.5 MG TAB PO ONE (18:00)
[2019-08-23] MEDS: LATANOPROST 0.005% OPHTH DROPS 2.5 ML BTL BOTH EYES SCH (21:15)
[2019-08-23] MEDS: DOXYCYCLINE 100 MG CAP PO SCH (21:15)
[2019-08-23] MEDS: ATORVASTATIN 20 MG TAB PO SCH (21:16)
[2019-08-24] MEDS: IPRATROPIUM-ALBUTEROL 3 ML NEB INHALATION PRN ×5 (03:55→21:19)
[2019-08-24] MEDS: methylPREDNISolone SOD SUCCI 125 MG/2 ML VIAL IV SCH ×3 (05:32→17:10)
[2019-08-24 07:52] LABS: Anisocytosis Slight; Basophils # (A) 0.1 k/uL (0-0.2); Basophils % (A) 1 %; Eosinophils % (A) 0 %; HCT 27.9 % (39.0-53.0); Hypochromasia Marked; Lymphocytes # (A) 0.6 k/uL (1.0-4.8); Lymphocytes % (A) 4 %; MCH 24.6 pg (25.0-35.0); MCHC 28.5 g/dL (31.0-37.0); MCV 86.2 fL (80.0-100.0); Mean Platelet Volume 6.4; Monocytes % (A) 6 %; Neutrophils # (A) 14.3 k/uL (1.3-7.7); Neutrophils % (A) 88 %; Platelet Count 448 k/uL (150-450); RBC 3.24 m/uL (4.30-5.90); RDW 16.7 % (11.5-15.5); WBC 16.2 k/uL (3.8-10.6)
[2019-08-24 07:53] LABS: INR 2.7 (<1.2); Prothrombin Time 26.5 sec (9.0-12.0)
[2019-08-24 07:57] LABS: Calcium 8.4 mg/dL (8.4-10.2); Potassium 5.1 mmol/L (3.5-5.1)
[2019-08-24] MEDS: FORMOTEROL FUMARATE 20 MCG/2 ML NEBU INHALATION SCH ×2 (08:08→21:29)
[2019-08-24] MEDS: BUDESONIDE 0.5 MG/2 ML NEBU INHALATION SCH ×2 (08:08→21:29)
[2019-08-24] MEDS: DOXYCYCLINE 100 MG CAP PO SCH ×2 (08:33→20:44)
[2019-08-24] MEDS: METOPROLOL SUCCINATE (ER) 25 MG TAB.ER.24H PO SCH ×2 (08:33→20:45)
[2019-08-24] MEDS: FAMOTIDINE 20 MG TAB PO SCH ×2 (08:33→20:45)
[2019-08-24] MEDS: FUROSEMIDE 10 MG/ML 4 ML VIAL IV SCH ×2 (08:33→16:21)
[2019-08-24] MEDS: NICOTINE 14MG/24HR PATCH TRANSDERM SCH (08:33)
--- NOTE | 2019-08-24 15:14 | P.PN ---
Subjective Progress Note Date: 08/24/19 Principal diagnosis: This is a pleasant 71-year-old gentleman with a history of advanced COPD uses 4 L of oxygen at home came in with complaints of shortness of breath and the pain in the left shoulder area and chest pain pleuritic increases with deep breathing and coughing PE was not evident on the CAT scan there is no significant pneumonia on the CAT scan patient does have minimal nonspecific infiltrate without any air bronchogram on the right lower lung limon. Patient denied any fever chills at home, patient does have significant wheezing patient did have leukocytosis. Patient is on Coumadin for Atrial fibrillation, INR is 1.8. Patient was started on systemic steroids and inhalational treatments. Patient does appear to have chronic diastolic dysfunction and patient does have bilateral pedal edema as well. Patient was started on azithromycin and Rocephin as the ER physician believed patient may have pneumonia. Patient is complaining of cough with yellowish sputum production 08/23/2019 Patient is sitting up at the side of the bed in no acute distress currently maintaining oxygen saturations in the 90s on 4 L via nasal cannula. Patient states he normally wears 4 L of oxygen at home. No acute overnight issues. Pulmonary is following. Patient is currently maintained on IV steroids as well as IV Lasix at this time. Currently patient denies any chest pain or palpitations. Patient states that he continues to be short of breath with exertion and needs to sit often to catch his breath. Patient denies any nausea or vomiting and is tolerating diet. Patient was getting quite winded when speaking with him today. 08/24/2019 Patient is lying in bed in no acute distress asleep but easily arousable. No acute overnight issues. Patient is currently still maintained on IV Lasix as well as IV steroids. Pulmonary is following. Patient states he overall does not feel well and also states that he feels worse than when he first came in. Patient currently denies any chest pain or palpitations at this time. Patient states that his shortness of breath has not improved. Patient states that he is feeling fullness in the abdomen and continues to have lower extremity swelling and edema. Discussed with the patient about elevating the legs up on some pillows while at rest. Patient remains afebrile. Patient denies any nausea or vomiting and is tolerating diet. Will continue to monitor closely. Objective - Vital Signs Vital signs: Vital Signs Temp 98.2 F 08/24/19 12:06 Pulse 90 08/24/19 13:29 Resp 17 08/24/19 12:06 BP 126/78 08/24/19 12:06 Pulse Ox 99 08/24/19 12:06 Intake & Output 08/23/19 08/24/19 08/24/19 18:59 06:59 18:59 Intake Total 50 2250 Output Total 500 1490 Balance -450 760 Weight 115.36 kg Intake: IV 50 .9@10 50 Oral 2250 Output: Urine 500 1490 Other: Voiding Method Urinal Urinal Urinal - Exam GENERAL: The patient is alert and oriented x3, not in any acute distress. Obese HEENT: Pupils are round and equally reacting to light. EOMI. No scleral icterus. No conjunctival pallor. Normocephalic, atraumatic. No pharyngeal erythema. No thyromegaly. CARDIOVASCULAR: S1 and S2 present. No murmurs, rubs, or gallops. PULMONARY: Significant expiratory wheezing on exam with no crackles noted. ABDOMEN: Soft, obese, taut, nontender, non-distended, normoactive bowel sounds. No palpable organomegaly. MUSCULOSKELETAL: No joint swelling or deformity. EXTREMITIES: No cyanosis, clubbing, or pedal edema. Mild lower extremity edema noted bilaterally with 2+ pitting edema noted on exam NEUROLOGICAL: Gross neurological examination did not reveal any focal deficits. SKIN: No rashes. - Labs CBC & Chem 7: 08/24/19 06:55 08/24/19 06:55 Labs: Abnormal Lab Results - Last 24 Hours (Table) 08/24/19 08/24/19 08/24/19 Range/Units 06:55 06:55 06:55 WBC 16.2 H (3.8-10.6) k/uL RBC 3.24 L (4.30-5.90) m/uL Hgb 8.0 L (13.0-17.5) gm/dL Hct 27.9 L (39.0-53.0) % MCH 24.6 L (25.0-35.0) pg MCHC 28.5 L (31.0-37.0) g/dL RDW 16.7 H (11.5-15.5) % Neutrophils # 14.3 H (1.3-7.7) k/uL Lymphocytes # 0.6 L (1.0-4.8) k/uL PT 26.5 H (9.0-12.0) sec INR 2.7 H (<1.2) Chloride 94 L (98-107) mmol/L Carbon Dioxide 39 H (22-30) mmol/L BUN 42 H (9-20) mg/dL Creatinine 1.41 H (0.66-1.25) mg/dL Glucose 138 H (74-99) mg/dL Microbiology - Last 24 Hours (Table) 08/21/19 00:14 Blood Culture - Preliminary Blood No Growth after 48 hours 08/23/19 12:00 Gram Stain - Preliminary Sputum Sputum Culture - Preliminary Assessment and Plan Assessment: -Acute on chronic hypercapnic respiratory failure secondary to COPD exacerbation. patient will be continued on systemic steroids and inhalational treatments. Patient appears to have bronchitis, my suspicion is low for pneumonia although patient had does have pleuritic chest pain from coughing, rule out pulmonary embolism. Small bilateral pleural effusions with an area of atelectasis No evidence of pulmonary embolism noted on CT -Hyperkalemia: Secondary to his Aldactone which will be discontinued. Potassium today is 5.1 -Bilateral pedal edema may be related to chronic diastolic dysfunction with acute exacerbation patient does not appear to have pulmonary hypertension. Patient is currently maintained on IV Lasix 20 mg twice daily and will continue to monitor. -Atrial fibrillation presently rate controlled patient will be resumed on his home medications along with Coumadin with the same dose as Coumadin tracks with the steroids and antibiotics. INR is 2.7 today. Will continue to monitor closely. -Congestive heart failure chronic diastolic dysfunction with mild acute exacerbation; echo done in April 2019 showed overall left ventricular systolic function is normal with an EF between 55 and 60% with a trace of mitral and t ricuspid regurgitation present.. -Hyperlipidemia -Hypertension -GI prophylaxis with Pepcid
--- NOTE | 2019-08-24 15:45 | P.PN ---
Subjective Progress Note Date: 08/24/19 Principal diagnosis: Acute COPD exacerbation and acute on chronic systolic congestive heart failure 69-year-old male patient who is known to me regarding his advanced oxygen-depen dent COPD and chronic hypoxic respiratory failure, came into the hospital because of worsening shortness of breath and a congested cough with dyspnea and wheeze and significant limitation in his exercise capacity. His breathing was also painful. No fever. No chills. There has been significant weight gain and increased edema lower extremities bilaterally and for that reason the patient came into the hospital. The patient had a CT angiogram of the chest and it showed no evidence of any pulmonary embolism. PT/INR was subtherapeutic. In the ED, he was given a combination of Rocephin and Zithromax and he was hospitalized for further evaluation and treatment. Note that the patient has advanced COPD. The patient also has congestion heart failure with an ejection fraction of 30-35% consistent with systolic heart failure. He has history of atrial fibrillation/flutter. He has obstructive sleep apnea which is severe with an AHI of 47.7. He has a CPAP machine at home which is set at a pressure of 14 cm of water. He is typically on 4 L of oxygen by nasal cannula. Patient was reevaluated today on 08/23/2019, continues to have some shortness of breath, intermittent episodes of cough and wheezing. Patient was seen by Dr. Quarles yesterday, and he felt that the patient had COPD exacerbation and some component of LV dysfunction and acute on chronic congestive heart failure. Anna ent has multiple comorbidities including LV dysfunction, COPD, chronic atrial fibrillation, obstructive sleep apnea syndrome, and chronic hypoxic respiratory failure normally maintained on 4 L nasal cannula. Reviewed his medications, patient is presently on bronchodilators, antibiotics, and diuretics. Slight improvement, but he has a long way to go yet. Labs showed the lips of 17.0 hemoglobin is 7.5, electrolytes are normal renal profile showed a BUN of [address] of the chest showed small bilateral pleural effusions, and atelectasis. On 08/24/2019 patient seen in follow-up on medical surgical floor. He is still quite tight and wheezy, and very dyspneic with any exertion, he is on 4 L of oxygen his pulse ox is 99%, his been afebrile, lung sounds are diminished, with end expiratory wheezing, and basilar crackles. His lower extremities remain quite swollen, despite the diuretics, currently his Lasix is at 40 mg every 12 hours, he is in negative fluid balance. He says IV diuretics, he is on empiric antibiotics, nebulized bronchodilators and IV steroids Objective - Vital Signs Vital signs: Vital Signs Temp 98.2 F 08/24/19 12:06 Pulse 90 08/24/19 13:29 Resp 17 08/24/19 12:06 BP 126/78 08/24/19 12:06 Pulse Ox 99 08/24/19 12:06 Intake & Output 08/23/19 08/24/19 08/24/19 18:59 06:59 18:59 Intake Total 50 2250 Output Total 500 1490 Balance -450 760 Weight 115.36 kg Intake: IV 50 .9@10 50 Oral 2250 Output: Urine 500 1490 Other: Voiding Method Urinal Urinal Urinal - Exam GENERAL EXAM: Alert, pleasant, 69-year-old white male 4 L of oxygen, comfortable in no apparent distress. HEAD: Normocephalic/atraumatic. Patient has typical rubio facies of chronic steroid use, and cushingoid features EYES: Normal reaction of pupils, equal size. Conjunctiva pink, sclera white. NOSE: Clear with pink turbinates. THROAT: No erythema or exudates. NECK: No masses, no JVD, no thyroid enlargement, no adenopathy. CHEST: No chest wall deformity. Symmetrical expansion. LUNGS: Diminished breath sounds bilaterally, with end expiratory wheezes, basilar rales CVS: Regular rate and rhythm, normal S1 and S2, no gallops, no murmurs, no rubs ABDOMEN: Soft, nontender. No hepatosplenomegaly, normal bowel sounds, no guarding or rigidity. EXTREMITIES: No clubbing, significant 2+ lower extremity edema, no cyanosis, 2+ pulses and upper and lower extremities. MUSCULOSKELETAL: Muscle strength and tone normal. SPINE: No scoliosis or deformity SKIN: No rashes CENTRAL NERVOUS SYSTEM: Alert and oriented -3. No focal deficits, tone is normal in all 4 extremities. PSYCHIATRIC: Alert and oriented -3. Appropriate affect. Intact judgment and insight. - Labs CBC & Chem 7: 08/24/19 06:55 08/24/19 06:55 Labs: Abnormal Lab Results - Last 24 Hours (Table) 1108/24/19 08/24/19 Range/Units 06:55 06:55 06:55 WBC 16.2 H (3.8-10.6) k/uL RBC 3.24 L (4.30-5.90) m/uL Hgb 8.0 L (13.0-17.5) gm/dL Hct 27.9 L (39.0-53.0) % MCH 24.6 L (25.0-35.0) pg MCHC 28.5 L (31.0-37.0) g/dL RDW 16.7 H (11.5-15.5) % Neutrophils # 14.3 H (1.3-7.7) k/uL Lymphocytes # 0.6 L (1.0-4.8) k/uL PT 26.5 H (9.0-12.0) sec INR 2.7 H (<1.2) Chloride 94 L (98-107) mmol/L Carbon Dioxide 39 H (22-30) mmol/L BUN 42 H (9-20) mg/dL Creatinine 1.41 H (0.66-1.25) mg/dL Glucose 138 H (74-99) mg/dL Microbiology - Last 24 Hours (Table) 08/21/19 00:14 Blood Culture - Preliminary Blood No Growth after 48 hours 08/23/19 12:00 Gram Stain - Preliminary Sputum Sputum Culture - Preliminary Assessment and Plan Plan: Assessment: 1 acute on chronic hypoxic respiratory failure 2 acute exacerbation of COPD 3 acute on chronic systolic congestive heart failure and history of LV dysfunction 4 obstructive sleep apnea syndrome 5 history of severe COPD, FEV1 is 35% of the predicted 6 LV dysfunction with ejection fraction of 30-35%. 7 chronic atrial fibrillation 8 chronic cor pulmonale Plan: Continue the antibiotics, steroids, he still has quite significant lower extremity edema, and crackles in the lungs and wheezing on physical exam. We'll increase his IV diuretics to 40 mg every 8 hours, continue nebulized bronchodilators, acute intake and output, and daily weights, we'll continue to follow I performed a history & physical examination of the patient and discussed their management with my nurse practitioner, Chasity Wheeler. I reviewed the nurse practitioner's note and agree with the documented findings and plan of care. Lung sounds are positive for end expiratory wheezes and basilar crackles throughout the lung limon. The findings and the impression was discussed with the patient. I attest to the documentation by the nurse practitioner. Time with Patient: Less than 30
[2019-08-24] MEDS ORDERED: WARFARIN 5 MG TAB PO ONE (18:00)
[2019-08-24] MEDS: LATANOPROST 0.005% OPHTH DROPS 2.5 ML BTL BOTH EYES SCH (20:43)
[2019-08-24] MEDS: ATORVASTATIN 20 MG TAB PO SCH (20:45)
[2019-08-25] MEDS: FUROSEMIDE 10 MG/ML 4 ML VIAL IV SCH ×4 (00:03→23:59)
[2019-08-25] MEDS: methylPREDNISolone SOD SUCCI 125 MG/2 ML VIAL IV SCH ×4 (00:03→18:35)
[2019-08-25 07:53] LABS: INR 2.1 (<1.2); Prothrombin Time 20.7 sec (9.0-12.0)
[2019-08-25 07:55] LABS: Basophils # (A) 0.1 k/uL (0-0.2); Basophils % (A) 1 %; Eosinophils % (A) 0 %; HCT 29.6 % (39.0-53.0); HGB 8.5 gm/dL (13.0-17.5); Hypochromasia Marked; Lymphocytes # (A) 0.4 k/uL (1.0-4.8); Lymphocytes % (A) 3 %; MCH 25.2 pg (25.0-35.0); MCHC 28.8 g/dL (31.0-37.0); MCV 87.4 fL (80.0-100.0); Mean Platelet Volume 5.7; Monocytes # (A) 0.7 k/uL (0-1.0); Monocytes % (A) 5 %; Neutrophils # (A) 12.7 k/uL (1.3-7.7); Neutrophils % (A) 90 %; Platelet Count 447 k/uL (150-450); RBC 3.38 m/uL (4.30-5.90); RDW 15.9 % (11.5-15.5)
[2019-08-25 08:03] LABS: Calcium 8.5 mg/dL (8.4-10.2); Potassium 5.6 mmol/L (3.5-5.1)
[2019-08-25] MEDS: BUDESONIDE 0.5 MG/2 ML NEBU INHALATION SCH ×2 (08:06→19:59)
[2019-08-25] MEDS: IPRATROPIUM-ALBUTEROL 3 ML NEB INHALATION PRN ×4 (08:06→19:59)
[2019-08-25] MEDS: FORMOTEROL FUMARATE 20 MCG/2 ML NEBU INHALATION SCH ×2 (08:06→19:59)
[2019-08-25] MEDS: NICOTINE 14MG/24HR PATCH TRANSDERM SCH (08:43)
[2019-08-25] MEDS: DOXYCYCLINE 100 MG CAP PO SCH ×2 (08:44→21:08)
[2019-08-25] MEDS: FAMOTIDINE 20 MG TAB PO SCH ×2 (08:45→21:08)
[2019-08-25] MEDS: METOPROLOL SUCCINATE (ER) 25 MG TAB.ER.24H PO SCH ×2 (08:45→21:06)
--- NOTE | 2019-08-25 12:12 | P.PN ---
Subjective Progress Note Date: 08/25/19 Principal diagnosis: Acute exacerbation of both chronic obstructive pulmonary disease and chronic systolic congestive heart failure 69-year-old male patient who is known to me regarding his advanced oxygen- dependent COPD and chronic hypoxic respiratory failure, came into the hospital because of worsening shortness of breath and a congested cough with dyspnea and wheeze and significant limitation in his exercise capacity. His breathing was also painful. No fever. No chills. There has been significant weight gain and increased edema lower extremities bilaterally and for that reason the patient came into the hospital. The patient had a CT angiogram of the chest and it showed no evidence of any pulmonary embolism. PT/INR was subtherapeutic. In the ED, he was given a combination of Rocephin and Zithromax and he was hospitalized for further evaluation and treatment. Note that the patient has advanced COPD. The patient also has congestion heart failure with an ejection fraction of 30-35% consistent with systolic heart failure. He has history of atrial fibrillation/flutter. He has obstructive sleep apnea which is severe with an AHI of 47.7. He has a CPAP machine at home which is set at a pressure of 14 cm of water. He is typically on 4 L of oxygen by nasal cannula. Patient was reevaluated today on 08/23/2019, continues to have some shortness of breath, intermittent episodes of cough and wheezing. Patient was seen by Dr. Quarles yesterday, and he felt that the patient had COPD exacerbation and some component of LV dysfunction and acute on chronic congestive heart failure. Patient has multiple comorbidities including LV dysfunction, COPD, chronic atrial fibrillation, obstructive sleep apnea syndrome, and chronic hypoxic respiratory failure normally maintained on 4 L nasal cannula. Reviewed his medications, patient is presently on bronchodilators, antibiotics, and diuretics. Slight improvement, but he has a long way to go yet. Labs showed the lips of 17.0 hemoglobin is 7.5, electrolytes are normal renal profile showed a BUN of [address] of the chest showed small bilateral pleural effusions, and atelectasis. On 08/24/2019 patient seen in follow-up on medical surgical floor. He is still quite tight and wheezy, and very dyspneic with any exertion, he is on 4 L of oxygen his pulse ox is 99%, his been afebrile, lung sounds are diminished, with end expiratory wheezing, and basilar crackles. His lower extremities remain quite swollen, despite the diuretics, currently his Lasix is at 40 mg every 12 hours, he is in negative fluid balance. He says IV diuretics, he is on empiric antibiotics, nebulized bronchodilators and IV steroids The patient is seen today 08/25/2019 in follow-up on the regular medical floor. He is currently sitting up at the bedside. Awake and alert, in no acute distress. Still not quite back to his baseline. Still with some end expiratory wheeze and shortness of breath on exertion. Maintaining O2 saturations in the low 90s on 4 L/m per nasal cannula. Sputum culture resulted Yuliana only. Blood culture reveals no growth. White count 14.0. Hemoglobin 8.5. INR 2.1. Bicarb 44. Creatinine 1.40. He is continued on DuoNeb inhalations, Pulmicort and Perforomist inhalations, IV Solu-Medrol, IV diuretics. Empiric antibiotics in the form of doxycycline. NicoDerm patch is in place. Anticoagulated with warfarin. Objective - Vital Signs Vital signs: Vital Signs Temp 97.1 F L 08/25/19 07:53 Pulse 88 08/25/19 11:41 Resp 18 08/25/19 08:59 BP 122/77 08/25/19 07:53 Pulse Ox 90 L 08/25/19 08:06 Intake & Output 08/24/19 08/25/19 08/25/19 18:59 06:59 18:59 Intake Total 1080 Output Total 700 450 Balance -700 630 Weight 114 kg Intake: Oral 1080 Output: Urine 700 450 Other: Voiding Method Urinal Toilet Toilet Urinal Urinal # Voids 3 2 # Bowel Movements 1 - Exam GENERAL EXAM: Alert, active, comfortable in no apparent distress. On 4 L nasal cannula. HEAD: Normocephalic. EYES: Normal reaction of pupils, equal size. NOSE: Clear with pink turbinates. THROAT: No erythema or exudates. NECK: No masses, no JVD. CHEST: No chest wall deformity. LUNGS: Equal air entry with bilateral end expiratory wheeze. CVS: S1 and S2 normal with no audible murmur, regular rhythm. ABDOMEN: No hepatosplenomegaly, normal bowel sounds, no guarding or rigidity. SPINE: No scoliosis or deformity SKIN: No rashes CENTRAL NERVOUS SYSTEM: No focal deficits, tone is normal in all 4 extremities. EXTREMITIES: There is no peripheral edema. No clubbing, no cyanosis. Peripheral pulses are intact. - Labs CBC & Chem 7: 08/25/19 07:18 08/25/19 07:18 Labs: Abnormal Lab Results - Last 24 Hours (Table) 08/25/19 08/25/19 08/25/19 Range/Units 07:18 07:18 07:18 WBC 14.0 H (3.8-10.6) k/uL RBC 3.38 L (4.30-5.90) m/uL Hgb 8.5 L (13.0-17.5) gm/dL Hct 29.6 L (39.0-53.0) % MCHC 28.8 L (31.0-37.0) g/dL RDW 15.9 H (11.5-15.5) % Neutrophils # 12.7 H (1.3-7.7) k/uL Lymphocytes # 0.4 L (1.0-4.8) k/uL PT 20.7 H (9.0-12.0) sec INR 2.1 H (<1.2) Potassium 5.6 H (3.5-5.1) mmol/L Chloride 93 L (98-107) mmol/L Carbon Dioxide 44 H* (22-30) mmol/L BUN 51 H (9-20) mg/dL Creatinine 1.40 H (0.66-1.25) mg/dL Glucose 148 H (74-99) mg/dL Microbiology - Last 24 Hours (Table) 08/23/19 12:00 Gram Stain - Final Sputum Sputum Culture - Final Yuliana albicans 08/21/19 00:14 Blood Culture - Preliminary Blood No Growth after 72 hours Assessment and Plan Assessment: 1 acute on chronic hypoxic respiratory failure 2 acute exacerbation of COPD 3 acute on chronic systolic congestive heart failure and history of LV dysfunction 4 obstructive sleep apnea syndrome 5 history of severe COPD, FEV1 is 35% of the predicted 6 LV dysfunction with ejection fraction of 30-35%. 7 chronic atrial fibrillation 8 chronic cor pulmonale Plan: The patient was seen and evaluated by Dr. Rowley. He is not quite back to his baseline. We will continue the current treatment plan. Increase his activity as tolerated. We'll continue to follow. I, the cosigning physician, performed a history & physical examination of the patient. Lungs sounds with bilateral end expiratory wheeze. Maintaining good O2 saturations in the 90s on 4 L/m per nasal cannula. I discussed the assessment and plan of care with my nurse practitioner, Kaycee Yoo. I attest to the above note as dictated by her.
--- NOTE | 2019-08-25 14:47 | P.PN ---
Subjective Progress Note Date: 08/25/19 Principal diagnosis: This is a pleasant 71-year-old gentleman with a history of advanced COPD uses 4 L of oxygen at home came in with complaints of shortness of breath and the pain in the left shoulder area and chest pain pleuritic increases with deep breathing and coughing PE was not evident on the CAT scan there is no significant pneumonia on the CAT scan patient does have minimal nonspecific infiltrate without any air bronchogram on the right lower lung limon. Patient denied any fever chills at home, patient does have significant wheezing patient did have leukocytosis. Patient is on Coumadin for Atrial fibrillation, INR is 1.8. Patient was started on systemic steroids and inhalational treatments. Patient does appear to have chronic diastolic dysfunction and patient does have bilateral pedal edema as well. Patient was started on azithromycin and Rocephin as the ER physician believed patient may have pneumonia. Patient is complaining of cough with yellowish sputum production 08/23/2019 Patient is sitting up at the side of the bed in no acute distress currently maintaining oxygen saturations in the 90s on 4 L via nasal cannula. Patient states he normally wears 4 L of oxygen at home. No acute overnight issues. Pulmonary is following. Patient is currently maintained on IV steroids as well as IV Lasix at this time. Currently patient denies any chest pain or palpitations. Patient states that he continues to be short of breath with exertion and needs to sit often to catch his breath. Patient denies any nausea or vomiting and is tolerating diet. Patient was getting quite winded when speaking with him today. 08/24/2019 Patient is lying in bed in no acute distress asleep but easily arousable. No acute overnight issues. Patient is currently still maintained on IV Lasix as well as IV steroids. Pulmonary is following. Patient states he overall does not feel well and also states that he feels worse than when he first came in. Patient currently denies any chest pain or palpitations at this time. Patient states that his shortness of breath has not improved. Patient states that he is feeling fullness in the abdomen and continues to have lower extremity swelling and edema. Discussed with the patient about elevating the legs up on some pillows while at rest. Patient remains afebrile. Patient denies any nausea or vomiting and is tolerating diet. Will continue to monitor closely. 08/25/2019 Patient is sitting up in bed in no acute distress. No acute overnight issues. Patient continues to have some bilateral lower extremity swelling with edema and is currently on IV Lasix and diuresing well. Discussed with the patient today about getting up and moving around more and increasing his activity as he has been sitting in bed or at the side of the bed. Patient states that he gets winded with exertion and is O2 dependent on 4 L via nasal cannula. Discussed with the staff about getting the patient up and increasing his activity. Currently patient denies any chest pain or palpitations. Patient is afebrile. Patient denies any nausea or vomiting and is tolerating diet. Sputum culture thus far shows Yuliana albicans and will order Diflucan. Will transition to oral steroids. Will continue to monitor closely. Objective - Vital Signs Vital signs: Vital Signs Temp 97.8 F 08/25/19 12:21 Pulse 86 08/25/19 12:21 Resp 18 08/25/19 12:21 BP 118/58 08/25/19 12:21 Pulse Ox 98 08/25/19 12:21 Intake & Output 08/24/19 08/25/19 08/25/19 18:59 06:59 18:59 Intake Total 1080 500 Output Total 700 450 Balance -700 630 500 Weight 114 kg Intake: Oral 1080 500 Output: Urine 700 450 Other: Voiding Method Urinal Toilet Toilet Urinal Urinal # Voids 3 2 3 # Bowel Movements 1 - Exam GENERAL: The patient is alert and oriented x3, not in any acute distress. Obese HEENT: Pupils are round and equally reacting to light. EOMI. No scleral icterus. No conjunctival pallor. Normocephalic, atraumatic. No pharyngeal erythema. No thyromegaly. CARDIOVASCULAR: S1 and S2 present. No murmurs, rubs, or gallops. PULMONARY: Mild expiratory wheezing on exam with a few crackles noted. ABDOMEN: Soft, obese, taut, nontender, non-distended, normoactive bowel sounds. No palpable organomegaly. MUSCULOSKELETAL: No joint swelling or deformity. EXTREMITIES: No cyanosis, clubbing, or pedal edema. Mild lower extremity edema noted bilaterally with 1+ pitting edema noted on exam. Slight improvement from yesterday NEUROLOGICAL: Gross neurological examination did not reveal any focal deficits. SKIN: No rashes. - Labs CBC & Chem 7: 08/25/19 07:18 08/25/19 07:18 Labs: Abnormal Lab Results - Last 24 Hours (Table) 08/25/19 08/25/19 08/25/19 Range/Units 07:18 07:18 07:18 WBC 14.0 H (3.8-10.6) k/uL RBC 3.38 L (4.30-5.90) m/uL Hgb 8.5 L (13.0-17.5) gm/dL Hct 29.6 L (39.0-53.0) % MCHC 28.8 L (31.0-37.0) g/dL RDW 15.9 H (11.5-15.5) % Neutrophils # 12.7 H (1.3-7.7) k/uL Lymphocytes # 0.4 L (1.0-4.8) k/uL PT 20.7 H (9.0-12.0) sec INR 2.1 H (<1.2) Potassium 5.6 H (3.5-5.1) mmol/L Chloride 93 L (98-107) mmol/L Carbon Dioxide 44 H* (22-30) mmol/L BUN 51 H (9-20) mg/dL Creatinine 1.40 H (0.66-1.25) mg/dL Glucose 148 H (74-99) mg/dL Microbiology - Last 24 Hours (Table) 08/23/19 12:00 Gram Stain - Final Sputum Sputum Culture - Final Yuliana albicans 08/21/19 00:14 Blood Culture - Preliminary Blood No Growth after 72 hours Assessment and Plan Assessment: -Acute on chronic hypercapnic respiratory failure secondary to COPD exacerbation. patient will be continued on systemic steroids and inhalational treatments. Patient appears to have bronchitis, my suspicion is low for pneumonia although patient had does have pleuritic chest pain from coughing, rule out pulmonary embolism. Small bilateral pleural effusions with an area of atelectasis No evidence of pulmonary embolism noted on CT -Hyperkalemia: Secondary to his Aldactone which will be discontinued. Potassium today is 5.6 -Bilateral pedal edema may be related to chronic diastolic dysfunction with acute exacerbation patient does not appear to have pulmonary hypertension. Patient is currently maintained on IV Lasix 20 mg twice daily and will continue to monitor. -Atrial fibrillation presently rate controlled patient will be resumed on his home medications along with Coumadin with the same dose as Coumadin tracks with the steroids and antibiotics. INR is 2.1 today. Will continue to monitor closely. -Congestive heart failure chronic diastolic dysfunction with mild acute exacerbation; echo done in April 2019 showed overall left ventricular systolic function is normal with an EF between 55 and 60% with a trace of mitral and tricuspid regurgitation present.. -Hyperlipidemia -Hypertension -GI prophylaxis with Pepcid
[2019-08-25] MEDS: FLUCONAZOLE 100 MG TAB PO SCH (15:21)
[2019-08-25] MEDS ORDERED: WARFARIN 10 MG TAB PO ONE (18:00)
[2019-08-25] MEDS: LATANOPROST 0.005% OPHTH DROPS 2.5 ML BTL BOTH EYES SCH (21:06)
[2019-08-25] MEDS: ATORVASTATIN 20 MG TAB PO SCH (21:08)
[2019-08-26 07:45] LABS: INR 1.8 (<1.2); Prothrombin Time 18.1 sec (9.0-12.0)
[2019-08-26 07:53] LABS: Calcium 8.2 mg/dL (8.4-10.2); Potassium 4.8 mmol/L (3.5-5.1)
[2019-08-26] MEDS: IPRATROPIUM-ALBUTEROL 3 ML NEB INHALATION PRN ×4 (08:06→20:58)
[2019-08-26] MEDS: BUDESONIDE 0.5 MG/2 ML NEBU INHALATION SCH ×2 (08:06→20:59)
[2019-08-26] MEDS: FORMOTEROL FUMARATE 20 MCG/2 ML NEBU INHALATION SCH ×2 (08:06→20:59)
[2019-08-26] MEDS: METOPROLOL SUCCINATE (ER) 25 MG TAB.ER.24H PO SCH ×2 (09:33→20:53)
[2019-08-26] MEDS: DOXYCYCLINE 100 MG CAP PO SCH ×2 (09:33→20:52)
[2019-08-26] MEDS: FLUCONAZOLE 100 MG TAB PO SCH (09:34)
[2019-08-26] MEDS: FAMOTIDINE 20 MG TAB PO SCH ×2 (09:34→20:53)
[2019-08-26] MEDS: FUROSEMIDE 10 MG/ML 4 ML VIAL IV SCH (09:34)
[2019-08-26] MEDS: NICOTINE 14MG/24HR PATCH TRANSDERM SCH (09:35)
[2019-08-26] MEDS: predniSONE 20 MG TAB PO SCH (09:35)
--- NOTE | 2019-08-26 11:10 | P.PN ---
Subjective Progress Note Date: 08/26/19 Principal diagnosis: Acute exacerbation of both chronic obstructive pulmonary disease and chronic systolic congestive heart failure 69-year-old male patient who is known to me regarding his advanced oxygen- dependent COPD and chronic hypoxic respiratory failure, came into the hospital because of worsening shortness of breath and a congested cough with dyspnea and wheeze and significant limitation in his exercise capacity. His breathing was also painful. No fever. No chills. There has been significant weight gain and increased edema lower extremities bilaterally and for that reason the patient came into the hospital. The patient had a CT angiogram of the chest and it showed no evidence of any pulmonary embolism. PT/INR was subtherapeutic. In the ED, he was given a combination of Rocephin and Zithromax and he was hospitalized for further evaluation and treatment. Note that the patient has advanced COPD. The patient also has congestion heart failure with an ejection fraction of 30-35% consistent with systolic heart failure. He has history of atrial fibrillation/flutter. He has obstructive sleep apnea which is severe with an AHI of 47.7. He has a CPAP machine at home which is set at a pressure of 14 cm of water. He is typically on 4 L of oxygen by nasal cannula. Patient was reevaluated today on 08/23/2019, continues to have some shortness of breath, intermittent episodes of cough and wheezing. Patient was seen by Dr. Quarles yesterday, and he felt that the patient had COPD exacerbation and some component of LV dysfunction and acute on chronic congestive heart failure. Patient has multiple comorbidities including LV dysfunction, COPD, chronic atrial fibrillation, obstructive sleep apnea syndrome, and chronic hypoxic respiratory failure normally maintained on 4 L nasal cannula. Reviewed his medications, patient is presently on bronchodilators, antibiotics, and diuretics. Slight improvement, but he has a long way to go yet. Labs showed the lips of 17.0 hemoglobin is 7.5, electrolytes are normal renal profile showed a BUN of [address] of the chest showed small bilateral pleural effusions, and atelectasis. On 08/24/2019 patient seen in follow-up on medical surgical floor. He is still quite tight and wheezy, and very dyspneic with any exertion, he is on 4 L of oxygen his pulse ox is 99%, his been afebrile, lung sounds are diminished, with end expiratory wheezing, and basilar crackles. His lower extremities remain quite swollen, despite the diuretics, currently his Lasix is at 40 mg every 12 hours, he is in negative fluid balance. He says IV diuretics, he is on empiric antibiotics, nebulized bronchodilators and IV steroids The patient is seen today 08/25/2019 in follow-up on the regular medical floor. He is currently sitting up at the bedside. Awake and alert, in no acute distress. Still not quite back to his baseline. Still with some end expiratory wheeze and shortness of breath on exertion. Maintaining O2 saturations in the low 90s on 4 L/m per nasal cannula. Sputum culture resulted Yuliana only. Blood culture reveals no growth. White count 14.0. Hemoglobin 8.5. INR 2.1. Bicarb 44. Creatinine 1.40. He is continued on DuoNeb inhalations, Pulmicort and Perforomist inhalations, IV Solu-Medrol, IV diuretics. Empiric antibiotics in the form of doxycycline. NicoDerm patch is in place. Anticoagulated with warfarin. The patient is seen today 08/26/2019 in follow-up on the regular medical floor. He is currently resting comfortably in bed. Maintaining good O2 saturations in the 90s on 4 L/m per nasal cannula. He's been afebrile. Hemodynamically stable. Sodium 141. Potassium 4.8. Bicarb 47. Creatinine 1.35. INR 1.8. His been transitioned to oral diuretics and oral prednisone. Empiric antibiotics in the form of doxycycline. He remains on DuoNeb inhalations along with Pulmicort and Perforomist inhalations. He needs to be motivated to be up and more active. Objective - Vital Signs Vital signs: Vital Signs Temp 98.2 F 08/26/19 04:25 Pulse 92 08/26/19 08:27 Resp 18 08/26/19 08:42 BP 124/72 08/26/19 04:25 Pulse Ox 96 08/26/19 04:25 Intake & Output 08/25/19 08/26/19 08/26/19 18:59 06:59 18:59 Intake Total 500 1000 Balance 500 1000 Weight 119.5 kg Intake: Oral 500 1000 Other: Voiding Method Toilet Toilet Toilet Urinal Urinal Urinal # Voids 3 4 - Exam GENERAL EXAM: Alert, active, comfortable in no apparent distress. On 4 L nasal cannula. HEAD: Normocephalic. EYES: Normal reaction of pupils, equal size. NOSE: Clear with pink turbinates. THROAT: No erythema or exudates. NECK: No masses, no JVD. CHEST: No chest wall deformity. LUNGS: Equal air entry with bilateral end expiratory wheeze. CVS: S1 and S2 normal with no audible murmur, regular rhythm. ABDOMEN: No hepatosplenomegaly, normal bowel sounds, no guarding or rigidity. SPINE: No scoliosis or deformity SKIN: No rashes CENTRAL NERVOUS SYSTEM: No focal deficits, tone is normal in all 4 extremities. EXTREMITIES: There is no peripheral edema. No clubbing, no cyanosis. Peripheral pulses are intact. - Labs CBC & Chem 7: 08/25/19 07:18 08/26/19 07:20 Labs: Abnormal Lab Results - Last 24 Hours (Table) 08/26/19 08/26/19 Range/Units 07:20 07:20 PT 18.1 H (9.0-12.0) sec INR 1.8 H (<1.2) Chloride 89 L (98-107) mmol/L Carbon Dioxide 47 H* (22-30) mmol/L BUN 51 H (9-20) mg/dL Creatinine 1.35 H (0.66-1.25) mg/dL Glucose 180 H (74-99) mg/dL Calcium 8.2 L (8.4-10.2) mg/dL Microbiology - Last 24 Hours (Table) 08/21/19 00:14 Blood Culture - Preliminary Blood No Growth after 96 hours 08/23/19 12:00 Gram Stain - Final Sputum Sputum Culture - Final Yuliana albicans Assessment and Plan Assessment: 1 acute on chronic hypoxic respiratory failure 2 acute exacerbation of COPD 3 acute on chronic systolic congestive heart failure and history of LV dysfunction 4 obstructive sleep apnea syndrome 5 history of severe COPD, FEV1 is 35% of the predicted 6 LV dysfunction with ejection fraction of 30-35%. 7 chronic atrial fibrillation 8 chronic cor pulmonale Plan: The patient was seen and evaluated by Dr. Rowley. He has been transitioned to oral diuretics and oral prednisone. He needs increased motivation to increase his activity. Home in the a.m. I, the cosigning physician, performed a history & physical examination of the patient. Lungs sounds with bilateral end expiratory wheeze. Maintaining good O2 saturations in the 90s on 4 L/m per nasal cannula. I discussed the assessment and plan of care with my nurse practitioner, Kaycee Yoo. I attest to the above note as dictated by her.
--- NOTE | 2019-08-26 15:20 | P.PN ---
Subjective Progress Note Date: 08/26/19 Principal diagnosis: This is a pleasant 71-year-old gentleman with a history of advanced COPD uses 4 L of oxygen at home came in with complaints of shortness of breath and the pain in the left shoulder area and chest pain pleuritic increases with deep breathing and coughing PE was not evident on the CAT scan there is no significant pneumonia on the CAT scan patient does have minimal nonspecific infiltrate without any air bronchogram on the right lower lung limon. Patient denied any fever chills at home, patient does have significant wheezing patient did have leukocytosis. Patient is on Coumadin for Atrial fibrillation, INR is 1.8. Patient was started on systemic steroids and inhalational treatments. Patient does appear to have chronic diastolic dysfunction and patient does have bilateral pedal edema as well. Patient was started on azithromycin and Rocephin as the ER physician believed patient may have pneumonia. Patient is complaining of cough with yellowish sputum production 08/23/2019 Patient is sitting up at the side of the bed in no acute distress currently maintaining oxygen saturations in the 90s on 4 L via nasal cannula. Patient states he normally wears 4 L of oxygen at home. No acute overnight issues. Pulmonary is following. Patient is currently maintained on IV steroids as well as IV Lasix at this time. Currently patient denies any chest pain or palpitations. Patient states that he continues to be short of breath with exertion and needs to sit often to catch his breath. Patient denies any nausea or vomiting and is tolerating diet. Patient was getting quite winded when speaking with him today. 08/24/2019 Patient is lying in bed in no acute distress asleep but easily arousable. No acute overnight issues. Patient is currently still maintained on IV Lasix as well as IV steroids. Pulmonary is following. Patient states he overall does not feel well and also states that he feels worse than when he first came in. Patient currently denies any chest pain or palpitations at this time. Patient states that his shortness of breath has not improved. Patient states that he is feeling fullness in the abdomen and continues to have lower extremity swelling and edema. Discussed with the patient about elevating the legs up on some pillows while at rest. Patient remains afebrile. Patient denies any nausea or vomiting and is tolerating diet. Will continue to monitor closely. 08/25/2019 Patient is sitting up in bed in no acute distress. No acute overnight issues. Patient continues to have some bilateral lower extremity swelling with edema and is currently on IV Lasix and diuresing well. Discussed with the patient today about getting up and moving around more and increasing his activity as he has been sitting in bed or at the side of the bed. Patient states that he gets winded with exertion and is O2 dependent on 4 L via nasal cannula. Discussed with the staff about getting the patient up and increasing his activity. Currently patient denies any chest pain or palpitations. Patient is afebrile. Patient denies any nausea or vomiting and is tolerating diet. Sputum culture thus far shows Yuliana albicans and will order Diflucan. Will transition to oral steroids. Will continue to monitor closely. 08/26/2019 Patient is sitting up at the side of the bed in no acute distress with no acute overnight issues. Patient's bilateral lower extremity swelling has improved and patient was transitioned over to oral Lasix as well as oral steroids will continue to monitor closely. Encourage the patient to get up and increase his activity as he has been sitting around in the bed and only getting up to use the bathroom. Discussed with the patient about his home situation and states that he stays on one floor and does not travel up stairs or to the basement anymore. Per the , she states he sits in a recliner all day. Patient does have home oxygen at 4 L via nasal cannula. Currently patient denies any chest pain or palpitations. Patient is afebrile. Patient denies any nausea or vomiting and is tolerating diet. Objective - Vital Signs Vital signs: Vital Signs Temp 98.1 F 08/26/19 12:32 Pulse 83 08/26/19 12:32 Resp 16 08/26/19 12:32 BP 121/65 08/26/19 12:32 Pulse Ox 100 08/26/19 12:32 Intake & Output 08/25/19 08/26/19 08/26/19 18:59 06:59 18:59 Intake Total 500 1000 Balance 500 1000 Weight 119.5 kg Intake: Oral 500 1000 Other: Voiding Method Toilet Toilet Toilet Urinal Urinal Urinal # Voids 3 4 - Exam GENERAL: The patient is alert and oriented x3, not in any acute distress. Obese HEENT: Pupils are round and equally reacting to light. EOMI. No scleral icterus. No conjunctival pallor. Normocephalic, atraumatic. No pharyngeal erythema. No thyromegaly. CARDIOVASCULAR: S1 and S2 present. No murmurs, rubs, or gallops. PULMONARY: Diminished breath sounds at the bases with a few scattered crackles noted. ABDOMEN: Soft, obese, non-tender, non-distended, normoactive bowel sounds. No palpable organomegaly. MUSCULOSKELETAL: No joint swelling or deformity. EXTREMITIES: No cyanosis, clubbing, or pedal edema. Mild lower extremity edema shows some slight improvement from yesterday NEUROLOGICAL: Gross neurological examination did not reveal any focal deficits. SKIN: No rashes. - Labs CBC & Chem 7: 08/25/19 07:18 08/26/19 07:20 Labs: Abnormal Lab Results - Last 24 Hours (Table) 08/26/19 08/26/19 Range/Units 07:20 07:20 PT 18.1 H (9.0-12.0) sec INR 1.8 H (<1.2) Chloride 89 L (98-107) mmol/L Carbon Dioxide 47 H* (22-30) mmol/L BUN 51 H (9-20) mg/dL Creatinine 1.35 H (0.66-1.25) mg/dL Glucose 180 H (74-99) mg/dL Calcium 8.2 L (8.4-10.2) mg/dL Microbiology - Last 24 Hours (Table) 08/21/19 00:14 Blood Culture - Preliminary Blood No Growth after 96 hours 08/23/19 12:00 Gram Stain - Final Sputum Sputum Culture - Final Yuliana albicans Assessment and Plan Assessment: -Acute on chronic hypercapnic respiratory failure secondary to COPD exacerbation. patient will be continued on systemic steroids and inhalational treatments. Patient appears to have bronchitis, my suspicion is low for pneumonia although patient had does have pleuritic chest pain from coughing, rule out pulmonary embolism. Small bilateral pleural effusions with an area of atelectasis No evidence of pulmonary embolism noted on CT -Hyperkalemia: Secondary to his Aldactone which will be discontinued. Potassium today is 4.8 -Bilateral pedal edema may be related to chronic diastolic dysfunction with acute exacerbation patient does not appear to have pulmonary hypertension. Patient is currently maintained on oral Lasix 20 mg twice daily and will continue to monitor. -Atrial fibrillation presently rate controlled patient will be resumed on his home medications along with Coumadin with the same dose as Coumadin tracks with the steroids and antibiotics. INR is 1.8 today. Will continue to monitor closely. -Congestive heart failure chronic diastolic dysfunction with mild acute exacerbation; echo done in April 2019 showed overall left ventricular systolic function is normal with an EF between 55 and 60% with a trace of mitral and tricuspid regurgitation present.. -Hyperlipidemia -Hypertension -GI prophylaxis with Pepcid
[2019-08-26] MEDS: FUROSEMIDE 20 MG TAB PO SCH (17:43)
[2019-08-26] MEDS ORDERED: WARFARIN 10 MG TAB PO ONE (18:00)
[2019-08-26] MEDS: ATORVASTATIN 20 MG TAB PO SCH (20:52)
[2019-08-26] MEDS: LATANOPROST 0.005% OPHTH DROPS 2.5 ML BTL BOTH EYES SCH (20:53)
[2019-08-27] MEDS: FORMOTEROL FUMARATE 20 MCG/2 ML NEBU INHALATION SCH (07:56)
[2019-08-27] MEDS: IPRATROPIUM-ALBUTEROL 3 ML NEB INHALATION PRN ×3 (07:56→16:01)
[2019-08-27] MEDS: BUDESONIDE 0.5 MG/2 ML NEBU INHALATION SCH (07:56)
[2019-08-27 07:59] LABS: INR 2.2 (<1.2); Prothrombin Time 21.4 sec (9.0-12.0)
[2019-08-27] MEDS: METOPROLOL SUCCINATE (ER) 25 MG TAB.ER.24H PO SCH (08:30)
[2019-08-27] MEDS: NICOTINE 14MG/24HR PATCH TRANSDERM SCH (08:30)
[2019-08-27] MEDS: DOXYCYCLINE 100 MG CAP PO SCH (08:30)
[2019-08-27] MEDS: predniSONE 20 MG TAB PO SCH (08:30)
[2019-08-27] MEDS: FUROSEMIDE 20 MG TAB PO SCH ×2 (08:31→17:11)
[2019-08-27] MEDS: FAMOTIDINE 20 MG TAB PO SCH (08:31)
[2019-08-27] MEDS: FLUCONAZOLE 100 MG TAB PO SCH (08:31)
--- NOTE | 2019-08-27 11:09 | P.PN ---
Subjective Progress Note Date: 08/27/19 Principal diagnosis: Acute exacerbation of both chronic obstructive pulmonary disease and chronic systolic congestive heart failure 69-year-old male patient who is known to me regarding his advanced oxygen- dependent COPD and chronic hypoxic respiratory failure, came into the hospital because of worsening shortness of breath and a congested cough with dyspnea and wheeze and significant limitation in his exercise capacity. His breathing was also painful. No fever. No chills. There has been significant weight gain and increased edema lower extremities bilaterally and for that reason the patient came into the hospital. The patient had a CT angiogram of the chest and it showed no evidence of any pulmonary embolism. PT/INR was subtherapeutic. In the ED, he was given a combination of Rocephin and Zithromax and he was hospitalized for further evaluation and treatment. Note that the patient has advanced COPD. The patient also has congestion heart failure with an ejection fraction of 30-35% consistent with systolic heart failure. He has history of atrial fibrillation/flutter. He has obstructive sleep apnea which is severe with an AHI of 47.7. He has a CPAP machine at home which is set at a pressure of 14 cm of water. He is typically on 4 L of oxygen by nasal cannula. Patient was reevaluated today on 08/23/2019, continues to have some shortness of breath, intermittent episodes of cough and wheezing. Patient was seen by Dr. Quarles yesterday, and he felt that the patient had COPD exacerbation and some component of LV dysfunction and acute on chronic congestive heart failure. Patient has multiple comorbidities including LV dysfunction, COPD, chronic atrial fibrillation, obstructive sleep apnea syndrome, and chronic hypoxic respiratory failure normally maintained on 4 L nasal cannula. Reviewed his medications, patient is presently on bronchodilators, antibiotics, and diuretics. Slight improvement, but he has a long way to go yet. Labs showed the lips of 17.0 hemoglobin is 7.5, electrolytes are normal renal profile showed a BUN of [address] of the chest showed small bilateral pleural effusions, and atelectasis. On 08/24/2019 patient seen in follow-up on medical surgical floor. He is still quite tight and wheezy, and very dyspneic with any exertion, he is on 4 L of oxygen his pulse ox is 99%, his been afebrile, lung sounds are diminished, with end expiratory wheezing, and basilar crackles. His lower extremities remain quite swollen, despite the diuretics, currently his Lasix is at 40 mg every 12 hours, he is in negative fluid balance. He says IV diuretics, he is on empiric antibiotics, nebulized bronchodilators and IV steroids The patient is seen today 08/25/2019 in follow-up on the regular medical floor. He is currently sitting up at the bedside. Awake and alert, in no acute distress. Still not quite back to his baseline. Still with some end expiratory wheeze and shortness of breath on exertion. Maintaining O2 saturations in the low 90s on 4 L/m per nasal cannula. Sputum culture resulted Yuliana only. Blood culture reveals no growth. White count 14.0. Hemoglobin 8.5. INR 2.1. Bicarb 44. Creatinine 1.40. He is continued on DuoNeb inhalations, Pulmicort and Perforomist inhalations, IV Solu-Medrol, IV diuretics. Empiric antibiotics in the form of doxycycline. NicoDerm patch is in place. Anticoagulated with warfarin. The patient is seen today 08/26/2019 in follow-up on the regular medical floor. He is currently resting comfortably in bed. Maintaining good O2 saturations in the 90s on 4 L/m per nasal cannula. He's been afebrile. Hemodynamically stable. Sodium 141. Potassium 4.8. Bicarb 47. Creatinine 1.35. INR 1.8. His been transitioned to oral diuretics and oral prednisone. Empiric antibiotics in the form of doxycycline. He remains on DuoNeb inhalations along with Pulmicort and Perforomist inhalations. He needs to be motivated to be up and more active. The patient is seen today 08/27/2018 in follow-up on the regular medical floor. He is currently sitting up at the bedside. Awake and alert in no acute distress. Breathing easier today compared to yesterday. Maintaining good O2 saturations in the 90s on room air. INR 2.2. He is continued on DuoNeb inhalations, Pulmicort and Perforomist inhalations, oral prednisone. Oral Lasix. Oral antibiotics. Objective - Vital Signs Vital signs: Vital Signs Temp 98.7 F 08/27/19 07:30 Pulse 88 08/27/19 08:22 Resp 18 08/27/19 07:30 BP 124/76 08/27/19 07:30 Pulse Ox 93 L 08/27/19 07:30 Intake & Output 08/26/19 08/27/19 08/27/19 18:59 06:59 18:59 Intake Total 550 830 Output Total 1100 Balance -550 830 Weight 112.5 kg Intake: Oral 550 830 Output: Urine 1100 Other: Voiding Method Toilet Toilet Toilet Urinal Urinal Urinal # Voids 3 - Exam GENERAL EXAM: Alert, obese 69-year-old gentleman, comfortable in no apparent dis tress. On 4 L nasal cannula. HEAD: Normocephalic. EYES: Normal reaction of pupils, equal size. NOSE: Clear with pink turbinates. THROAT: No erythema or exudates. NECK: No masses, no JVD. CHEST: No chest wall deformity. LUNGS: Equal air entry with faint bilateral end expiratory wheeze. CVS: S1 and S2 normal with no audible murmur, regular rhythm. ABDOMEN: No hepatosplenomegaly, normal bowel sounds, no guarding or rigidity. SPINE: No scoliosis or deformity SKIN: No rashes CENTRAL NERVOUS SYSTEM: No focal deficits, tone is normal in all 4 extremities. EXTREMITIES: There is no peripheral edema. No clubbing, no cyanosis. Peripheral pulses are intact. - Labs CBC & Chem 7: 08/25/19 07:18 08/26/19 07:20 Labs: Abnormal Lab Results - Last 24 Hours (Table) 08/27/19 Range/Units 07:15 PT 21.4 H (9.0-12.0) sec INR 2.2 H (<1.2) Microbiology - Last 24 Hours (Table) 08/21/19 00:14 Blood Culture - Preliminary Blood No Growth after 120 hours Assessment and Plan Assessment: 1 acute on chronic hypoxic respiratory failure 2 acute exacerbation of COPD 3 acute on chronic systolic congestive heart failure and history of LV dysfunc tion 4 obstructive sleep apnea syndrome 5 history of severe COPD, FEV1 is 35% of the predicted 6 LV dysfunction with ejection fraction of 30-35%. 7 chronic atrial fibrillation 8 chronic cor pulmonale Plan: The patient was seen and evaluated by Dr. Rowley. He is cleared for discharge from the pulmonary standpoint. Complete prednisone taper. Continue his home pulmonary medications. Continue home oxygen. Complete course of antibiotics. Follow up with Dr. Quarles in 1-2 weeks' time. He and his are both encouraged to call sooner if any recurrence of symptoms or other questions or concerns. I, the cosigning physician, performed a history & physical examination of the patient. Lungs sounds with faint bilateral end expiratory wheeze. Maintaining good O2 saturations in the 90s on 4 L/m per nasal cannula. I discussed the assessment and plan of care with my nurse practitioner, Kaycee Yoo. I attest to the above note as dictated by her.
[2019-08-27 13:00] VITALS: BP 115/67; TEMP 98.9
[2019-08-27 16:06] VITALS: RESP 22
[2019-08-27 16:14] VITALS: PULSE 92
[2019-08-27] MEDS ORDERED: WARFARIN 7.5 MG TAB PO ONE (18:00)
--- NOTE | 2019-08-30 09:07 | P.DS ---
Providers Date of admission: 08/21/19 23:50 Expected date of discharge: 08/27/19 Attending physician: Kylee Scott Consults: 08/21/19 23:50 Consult Physician Routine Consulting Provider: Bran Quarles Consult Reason/Comments: COPD exacerbation Do you want consulting provider notified?: Yes, Notify in am Primary care physician: Arpita [facility] Course: Final diagnosis -Acute on chronic hypercapnic respiratory failure secondary to COPD exacerbation -Hyperkalemia: Secondary to his Aldactone -Bilateral pedal edema may be related to chronic diastolic dysfunction with a cute exacerbation -Atrial fibrillation -Congestive heart failure chronic diastolic dysfunction with mild acute exacerbation -Hyperlipidemia -Hypertension -GI prophylaxis with Pepcid Discharge disposition Patient is being discharged in a stable condition with guarded prognosis to home and will follow-up with primary care provider upon discharge. Patient will also be following up with pulmonary in one week. Patient will be continued on a short course of oral antibiotics in the form of doxycycline for the next week along with Diflucan the next 5 days. Total time taken is 35 minutes. History of present illness This is a 69-year-old male who was recently admitted for increasing shortness of breath with pain in the left shoulder area along with chest pain that was pleuritic and increased with deep breathing and coughing and was being closely monitored. Patient underwent a CAT scan showing no pulmonary embolisms and no significant pneumonia but did have minimal nonspecific infiltrates. Patient was treated with oral doxycycline and will continue in the outpatient setting for 1 week. Patient's sputum culture finalized showing Yuliana albicans and will continue on Diflucan for the next 5 days. Patient will follow-up with primary care provider upon discharge. Patient's Coumadin levels were fluctuating and will need repeat labs in 1-2 days to monitor PT/INR for therapeutic level between 2 and 3. Patient will continue on steroids along with inhalational treatments in the outpatient setting. Discussed with the patient at length about increasing his activity as tolerated as we were told by family that he just sits in a recliner all day. Also discussed with the patient about refraining from any tobacco use. Instructed the patient to elevate his lower extremities while at rest to minimize the swelling. Currently patient's condition is stable with much improvement and is ready for discharge today. Patient denies any chest pain, shortness of breath, or palpitations at this time. Patient has been afebrile. Patient denies any nausea or vomiting and is tolerating diet. Guarded prognosis. On exam vital signs are stable. Temp is 98.9F, pulse is 87, respirations are 16, blood pressure is 115/67, oxygen saturation is 96% on 4 L nasal cannula. Cardio S1 and S2 are present. Respiratory system shows diminished breath sounds at the bases with no wheezing or rhonchi noted. Abdomen is soft, obese, nontender. Nervous system shows no focal deficits. Please refer to medication reconciliation sheet for a list of medications. Patient Condition at Discharge: Fair Plan - Discharge Summary Discharge Rx Participant: No New Discharge Prescriptions: New Warfarin [Coumadin] 7.5 mg PO ONCE@1800 30 Days #30 tab Fluconazole [Diflucan] 100 mg PO DAILY 5 Days #5 tab Famotidine [Pepcid] 20 mg PO BID 30 Days #60 tab predniSONE 10 mg PO DIRECTED #30 tab Budesonide [Pulmicort] 0.5 mg INHALATION RT-BID 30 Days #60 nebu Doxycycline [Vibramycin] 100 mg PO BID 7 Days #14 cap Continue Atorvastatin [Lipitor] 20 mg PO HS Latanoprost Ophth [Xalatan 0.005%] 1 drop BOTH EYES HS Metoprolol Succinate (ER) [Toprol XL] 62.5 mg PO BID Furosemide [Lasix] 20 mg PO BID Spironolactone [Aldactone] 25 mg PO DAILY Formoterol Fumarate [Perforomist] 20 mcg INHALATION RT-BID Fluticasone Nasal [place] [Flonase Nasal [place]] 2 spr EA NOSTRIL HS PRN PRN Reason: Allergy Symptoms Lisinopril [Zestril] 5 mg PO DAILY Nicotine 14Mg/24Hr Patch [Habitrol] 14 mg TRANSDERM DAILY Ipratropium Nebulized [Atrovent Nebulized 0.2 MG/ML] 0.5 mg INHALATION RT-QID Albuterol Nebulized [Ventolin Nebulized] 2.5 mg INHALATION RT-QID Discontinued Warfarin [Coumadin] 10 mg PO DIRECTED Discharge Medication List Atorvastatin [Lipitor] 20 mg PO HS 05/02/17 [History] Latanoprost Ophth [Xalatan 0.005%] 1 drop BOTH EYES HS 01/11/19 [History] Fluticasone Nasal [place] [Flonase Nasal [place]] 2 spr EA NOSTRIL HS PRN 03/11/19 [History] Formoterol Fumarate [Perforomist] 20 mcg INHALATION RT-BID 03/11/19 [History] Furosemide [Lasix] 20 mg PO BID 03/11/19 [History] Lisinopril [Zestril] 5 mg PO DAILY 03/11/19 [History] Metoprolol Succinate (ER) [Toprol XL] 62.5 mg PO BID 03/11/19 [History] Spironolactone [Aldactone] 25 mg PO DAILY 03/11/19 [History] Albuterol Nebulized [Ventolin Nebulized] 2.5 mg INHALATION RT-QID 08/22/19 [History] Ipratropium Nebulized [Atrovent Nebulized 0.2 MG/ML] 0.5 mg INHALATION RT-QID 08/22/19 [History] Nicotine 14Mg/24Hr Patch [Habitrol] 14 mg TRANSDERM DAILY 08/22/19 [History] Budesonide [Pulmicort] 0.5 mg INHALATION RT-BID 30 Days #60 nebu 08/27/19 [Rx] Doxycycline [Vibramycin] 100 mg PO BID 7 Days #14 cap 08/27/19 [Rx] Famotidine [Pepcid] 20 mg PO BID 30 Days #60 tab 08/27/19 [Rx] Fluconazole [Diflucan] 100 mg PO DAILY 5 Days #5 tab 08/27/19 [Rx] Warfarin [Coumadin] 7.5 mg PO ONCE@1800 30 Days #30 tab 08/27/19 [Rx] predniSONE 10 mg PO DIRECTED #30 tab 08/27/19 [Rx] Follow up Appointment(s)/Referral(s): Arpita Arguello MD [Primary Care Provider] - 09/03/19 11:30 am Bran Quarles MD [STAFF PHYSICIAN] - 08/31/19 10:30 am Ambulatory/Diagnostic Orders: Basic Metabolic Panel [LAB.AMB] Time Frame: 2 Days, Location: None Selected Complete Blood Count w/diff [LAB.AMB] Time Frame: 2 Days, Location: None Selected Prothrombin Time INR [LAB.AMB] Time Frame: 2 Days, Location: None Selected Patient Instructions/Handouts: Famotidine (By mouth), Doxycycline (By mouth), Prednisone (By mouth), Warfarin (By mouth), Fluconazole (By mouth), Budesonide (By breathing), Heart Failure (DC), COPD (Chronic Obstructive Pulmonary Disease) (DC), Pneumonia (DC) Activity/Diet/Wound Care/Special Instructions: Activity Limited until follow-up Encouraged the patient to increase his activity as tolerated Continue taking Coumadin 7.5 mg daily recheck PT/INR in 2-3 days Repeat labs in 2-3 days Follow-up with primary care provider upon discharge Follow-up with pulmonary in 1-2 weeks. Continue antibiotics until done Continue prednisone until finished Continue current diet Avoid all tobacco use Discharge Disposition: HOME SELF-CARE
== END 2019-08-27 18:32 | disposition home or self-care (01) | DRG 190 ==
LOC: EC 22:24 → 3NMEDONC 23:50
PROVIDERS: ADMIT Hospitalist; ATTEND Hospitalist
DX: J44.1 Chronic obstructive pulmonary disease with (acute) exacerbation (principal); J96.21 Acute and chronic respiratory failure with hypoxia; J96.22 Acute and chronic respiratory failure with hypercapnia; I50.33 Acute on chronic diastolic (congestive) heart failure; J98.11 Atelectasis; I48.20 Chronic atrial fibrillation, unspecified; D64.9 Anemia, unspecified; E66.9 Obesity, unspecified; Z68.36 Body mass index [BMI] 36.0-36.9, adult; E78.5 Hyperlipidemia, unspecified; E87.5 Hyperkalemia; T50.0X5A Adverse effect of mineralocorticoids and their antagonists, initial encounter; G47.33 Obstructive sleep apnea (adult) (pediatric); I11.0 Hypertensive heart disease with heart failure; I27.81 Cor pulmonale (chronic); Z79.01 Long term (current) use of anticoagulants; Z79.52 Long term (current) use of systemic steroids; Z79.899 Other long term (current) drug therapy; Z80.6 Family history of leukemia; Z87.891 Personal history of nicotine dependence; Z99.81 Dependence on supplemental oxygen; H40.9 Unspecified glaucoma; Z87.01 Personal history of pneumonia (recurrent)
CPT/HCPCS: 36415; 71046; 71275; 80048; 80053; 81003; 83735; 83880; 84484; 85025; 85027; 85610; 85730; 87040; 87070; 87205; 93005; 94640; 94760; 99285

== ENCOUNTER 2019-10-02 12:47 | Inpatient (IN) | payer MEDICARE, BC ==
[2019-10-02] MEDS ORDERED: methylPREDNISolone SOD SUCCI 125 MG/2 ML VIAL IV STA (12:52)
--- NOTE | 2019-10-02 12:56 | ED ---
General Adult HPI - General Stated complaint: [place] Time Seen by Provider: 10/02/19 12:49 Source: patient, EMS, RN notes reviewed Mode of arrival: EMS Limitations: no limitations - History of Present Illness Initial comments: Patient is a pleasant 69-year-old male presenting to the emergency Department with complaints of difficulty in breathing. Symptoms have been worse for the past month, worse over the past couple of days. Patient gets very fatigued with any exertion. Patient does have some mild leg swelling however this has been fairly normal for him over the past several months. No chest pain. No leg pain. No palpitations. Patient does have history of irregular heartbeat. No fevers. Minimal cough. Symptoms are similar to previous COPD. - Related Data Home Medications Medication Instructions Recorded Confirmed Atorvastatin [Lipitor] 20 mg PO HS 05/02/17 10/02/19 Latanoprost Ophth [Xalatan 0.005%] 1 drop BOTH EYES HS 01/11/19 10/02/19 Formoterol Fumarate [Perforomist] 20 mcg INHALATION RT-BID 03/11/19 10/02/19 Furosemide [Lasix] 20 mg PO BID 03/11/19 10/02/19 Lisinopril [Zestril] 5 mg PO DAILY 03/11/19 10/02/19 Metoprolol Succinate (ER) [Toprol 37.5 mg PO BID 03/11/19 10/02/19 XL] Spironolactone [Aldactone] 25 mg PO DAILY 03/11/19 10/02/19 Albuterol Nebulized [Ventolin 2.5 mg INHALATION RT-QID 10/02/19 10/02/19 Nebulized] Ipratropium Nebulized [Atrovent 0.5 mg INHALATION RT-QID 10/02/19 10/02/19 Nebulized 0.2 MG/ML] Warfarin [Coumadin] 5 mg PO MOFR 10/02/19 10/02/19 Warfarin [Coumadin] 7.5 mg PO SUTUWETHSA 10/02/19 10/02/19 [place] 1 dose INHALATION RT-DAILY 10/02/19 10/02/19 Previous Rx's Medication Instructions Recorded Budesonide [Pulmicort] 0.5 mg INHALATION RT-BID 30 Days 08/27/19 #60 nebu Allergies Allergy/AdvReac Type Severity Reaction Status Date / Time No Known Allergies Allergy Verified 10/02/19 13:35 Review of Systems ROS Statement: Those systems with pertinent positive or pertinent negative responses have been documented in the HPI. ROS Other: All systems not noted in ROS Statement are negative. Constitutional: Denies: fever Eyes: Denies: eye pain ENT: Denies: ear pain Respiratory: Reports: as per HPI, dyspnea Cardiovascular: Denies: chest pain Endocrine: Reports: fatigue Gastrointestinal: Denies: abdominal pain Genitourinary: Denies: dysuria Musculoskeletal: Denies: back pain Skin: Denies: rash Neurological: Denies: weakness Past Medical History Past Medical History: Atrial Fibrillation, Heart Failure, COPD, Eye Disorder, Hyperlipidemia, Hypertension, Osteoarthritis (OA), Pneumonia Additional Past Medical History / Comment(s): COPD,02 4 liters n/c at hs, previous history of acute respiratory failure related to COPD exacerbation/vented, glaucoma, obesity, chronic atrial fibrillation/flutter,wears contact lense rt eye and also weras glasses History of Any Multi-Drug Resistant Organisms: None Reported Past Surgical History: Ablation Additional Past Surgical History / Comment(s): right eye surgery.colonoscopy Past Anesthesia/Blood Transfusion Reactions: No Reported Reaction Past Psychological History: No Psychological Hx Reported Smoking Status: Former smoker Past Alcohol Use History: None Reported Past Drug Use History: None Reported - Past Family History Brother(s) Family Medical History: Cancer Additional Family Medical History / Comment(s): CMML General Exam Limitations: no limitations General appearance: alert, in no apparent distress Head exam: Present: normocephalic Eye exam: Present: normal appearance Neck exam: Present: normal inspection Respiratory exam: Present: wheezes, decreased breath sounds Cardiovascular Exam: Present: irregular rhythm GI/Abdominal exam: Present: soft. Absent: tenderness Extremities exam: Present: pedal edema (+1 bilateral). Absent: calf tenderness Neurological exam: Present: alert Psychiatric exam: Present: normal affect, normal mood Skin exam: Present: normal color Course Vital Signs 10/02/19 12:50 Temperature 99.0 F Pulse Rate 112 H Respiratory 20 Rate Blood Pressure 140/67 O2 Sat by Pulse 90 L Oximetry - Reevaluation(s) Reevaluation #1: 10/02/19 13:03 Patient does have atrophic relation on the monitor with a rate of 114. Patient was placed on potline monitor secondary to dyspnea and 2 observe for cardiac arrhythmia. 10/02/19 14:04 Patient meet sepsis criteria diagnosed at 1400. Blood culture and lactic acid ordered. IV antibiotics will be ordered. EKG Findings - EKG Comments: EKG Findings:: EKG shows sinus tachycardia 108. There is minimal irregularity. MT 128. QRS 70. QT 326. QTc 436. Normal axis. Normal QRS. No acute ST change. Medical Decision Making - Medical Decision Making Patient reevaluated and resting comfortably in bed. Patient states he has been off steroids for over a month now. Patient and family updated on results and plan. Case was discussed in detail with Dr. Hernandez, covering for Dr. Arguello, who will admit. Patient states he does see Dr. Sivlerio Sheth in. - Lab Data Result diagrams: 10/02/19 12:33 10/02/19 12:33 Lab Results 10/02/19 10/02/19 10/02/19 Range/Units 12:33 12:33 12:33 WBC 17.2 H (3.8-10.6) k/uL RBC 3.34 L (4.30-5.90) m/uL Hgb 8.4 L (13.0-17.5) gm/dL Hct 28.9 L (39.0-53.0) % MCV 86.6 (80.0-100.0) fL MCH 25.1 (25.0-35.0) pg MCHC 28.9 L (31.0-37.0) g/dL RDW 17.5 H (11.5-15.5) % Plt Count 537 H (150-450) k/uL Neutrophils % 76 % Lymphocytes % 9 % Monocytes % 9 % Eosinophils % 1 % Basophils % 2 % Neutrophils # 13.1 H (1.3-7.7) k/uL Lymphocytes # 1.6 (1.0-4.8) k/uL Monocytes # 1.5 H (0-1.0) k/uL Eosinophils # 0.2 (0-0.7) k/uL Basophils # 0.4 H (0-0.2) k/uL Hypochromasia Marked Poikilocytosis Slight Anisocytosis Slight PT (9.0-12.0) sec INR (<1.2) APTT (22.0-30.0) sec Sodium 141 (137-145) mmol/L Potassium 4.7 (3.5-5.1) mmol/L Chloride 96 L (98-107) mmol/L Carbon Dioxide 40 H (22-30) mmol/L Anion Gap 5 mmol/L BUN 16 (9-20) mg/dL Creatinine 0.97 (0.66-1.25) mg/dL Est GFR (CKD-EPI)AfAm >90 (>60 ml/min/1.73 sqM) Est GFR (CKD-EPI)NonAf 81 (>60 ml/min/1.73 sqM) Glucose 120 H (74-99) mg/dL Calcium 8.5 (8.4-10.2) mg/dL Total Bilirubin 0.5 (0.2-1.3) mg/dL AST 21 (17-59) U/L ALT 16 (4-49) U/L Alkaline Phosphatase 103 (38-126) U/L Troponin I (0.000-0.034) ng/mL NT-Pro-B Natriuret Pep 755 pg/mL Total Protein 5.8 L (6.3-8.2) g/dL Albumin 3.4 L (3.5-5.0) g/dL 10/02/19 10/02/19 Range/Units 12:33 12:33 WBC (3.8-10.6) k/uL RBC (4.30-5.90) m/uL Hgb (13.0-17.5) gm/dL Hct (39.0-53.0) % MCV (80.0-100.0) fL MCH (25.0-35.0) pg MCHC (31.0-37.0) g/dL RDW (11.5-15.5) % Plt Count (150-450) k/uL Neutrophils % % Lymphocytes % % Monocytes % % Eosinophils % % Basophils % % Neutrophils # (1.3-7.7) k/uL Lymphocytes # (1.0-4.8) k/uL Monocytes # (0-1.0) k/uL Eosinophils # (0-0.7) k/uL Basophils # (0-0.2) k/uL Hypochromasia Poikilocytosis Anisocytosis PT 17.4 H (9.0-12.0) sec INR 1.8 H (<1.2) APTT 33.6 H (22.0-30.0) sec Sodium (137-145) mmol/L Potassium (3.5-5.1) mmol/L Chloride (98-107) mmol/L Carbon Dioxide (22-30) mmol/L Anion Gap mmol/L BUN (9-20) mg/dL Creatinine (0.66-1.25) mg/dL Est GFR (CKD-EPI)AfAm (>60 ml/min/1.73 sqM) Est GFR (CKD-EPI)NonAf (>60 ml/min/1.73 sqM) Glucose (74-99) mg/dL Calcium (8.4-10.2) mg/dL Total Bilirubin (0.2-1.3) mg/dL AST (17-59) U/L ALT (4-49) U/L Alkaline Phosphatase (38-126) U/L Troponin I <0.012 (0.000-0.034) ng/mL NT-Pro-B Natriuret Pep pg/mL Total Protein (6.3-8.2) g/dL Albumin (3.5-5.0) g/dL - Radiology Data Radiology results: image reviewed (Chest x-ray shows chronic infiltrate left lower lobe. TinyInfiltrate right costophrenic angle not excluded early pneumonia.) Critical Care Time Critical Care Time: Yes Total Critical Care Time: 32 Disposition Clinical Impression: Acute exacerbation of chronic obstructive airways disease, Pneumonia, Sepsis Disposition: ADMITTED IP TO THIS HOSP Is patient prescribed a controlled substance at d/c from ED?: No Referrals: Arpita Arguello MD [Primary Care Provider] - 1-2 days Decision Time: 14:04
[2019-10-02 13:25] LABS: Anisocytosis Slight; Basophils # (A) 0.4 k/uL (0-0.2); Basophils % (A) 2 %; Eosinophils # (A) 0.2 k/uL (0-0.7); Eosinophils % (A) 1 %; HCT 28.9 % (39.0-53.0); HGB 8.4 gm/dL (13.0-17.5); Hypochromasia Marked; Lymphocytes # (A) 1.6 k/uL (1.0-4.8); Lymphocytes % (A) 9 %; MCH 25.1 pg (25.0-35.0); MCHC 28.9 g/dL (31.0-37.0); MCV 86.6 fL (80.0-100.0); Mean Platelet Volume 7.1; Monocytes # (A) 1.5 k/uL (0-1.0); Monocytes % (A) 9 %; Neutrophils # (A) 13.1 k/uL (1.3-7.7); Neutrophils % (A) 76 %; Platelet Count 537 k/uL (150-450); Poikilocytosis Slight; RBC 3.34 m/uL (4.30-5.90); RDW 17.5 % (11.5-15.5); WBC 17.2 k/uL (3.8-10.6)
--- NOTE | 2019-10-02 13:27 | XR ---
EXAMINATION TYPE: XR chest 2V DATE OF EXAM: 10/02/2019 HISTORY: difficulty breathing. REFERENCE: Previous study dated 08/21/2019. FINDINGS: There is persistent airspace disease in the medial aspect of the left lower lobe, unchanged from previous. There is minimal airspace disease in the right CP angle. The heart is not enlarged. P leural spaces are clear. IMPRESSION: 1. CHRONIC INFILTRATE IN THE MEDIAL ASPECT OF THE LEFT LOWER LOBE. 2. TINY, NEW INFILTRATE IN THE REGION OF THE RIGHT CP ANGLE. I COULD NOT EXCLUDE AN EARLY PNEUMONIA.
[2019-10-02 13:34] LABS: ALT 16 U/L (4-49); AST 21 U/L (17-59); African American GFR (CKD) >90 (>60 ml/min/1.73 sqM); Albumin 3.4 g/dL (3.5-5.0); Alkaline Phosphatase 103 U/L (38-126); Anion Gap 5 mmol/L; Blood Urea Nitrogen 16 mg/dL (9-20); Calcium 8.5 mg/dL (8.4-10.2); Chloride 96 mmol/L (98-107); Glucose 120 mg/dL (74-99); Non-African American GFR(CKD) 81 (>60 ml/min/1.73 sqM); Potassium 4.7 mmol/L (3.5-5.1); Sodium 141 mmol/L (137-145); Total Bilirubin 0.5 mg/dL (0.2-1.3); Total Protein 5.8 g/dL (6.3-8.2)
[2019-10-02 13:37] LABS: INR 1.8 (<1.2); Partial Thromboplastin Time 33.6 sec (22.0-30.0); Prothrombin Time 17.4 sec (9.0-12.0)
[2019-10-02 13:40] LABS: Carbon Dioxide 40 mmol/L (22-30)
[2019-10-02] MEDS ORDERED: LEVOFLOXACIN 750MG-D5W PMX 750 MG in DEXTROSE/WATER 1 150ML.BAG IVPB STA (14:04)
[2019-10-02] MEDS ORDERED: PIPERACILLIN-TAZOBACTAM 3.375 GM in SODIUM CHLORIDE 0.9% 100 ML IVPB STA (14:04)
[2019-10-02] MEDS ORDERED: PNEUMONIA PROTOCOL UTILIZED 1 EACH MISC PO PRN (14:04)
[2019-10-02] MEDS ORDERED: SODIUM CHLORIDE 0.9% 1,000 ML IV SCH (14:15)
[2019-10-02] MEDS: IPRATROPIUM-ALBUTEROL 3 ML NEB INHALATION SCH ×2 (16:16→20:20)
[2019-10-02] MEDS: methylPREDNISolone SOD SUCCI 125 MG/2 ML VIAL IV SCH ×2 (17:14→23:36)
[2019-10-02] MEDS ORDERED: WARFARIN 7.5 MG TAB PO ONE (20:00)
[2019-10-02] MEDS: BUDESONIDE 0.5 MG/2 ML NEBU INHALATION SCH (20:20)
[2019-10-02] MEDS: FORMOTEROL FUMARATE 20 MCG/2 ML NEBU INHALATION SCH (20:20)
[2019-10-02] MEDS: ATORVASTATIN 20 MG TAB PO SCH (20:40)
[2019-10-02] MEDS: LATANOPROST 0.005% OPHTH DROPS 2.5 ML BTL BOTH EYES SCH (20:40)
[2019-10-02] MEDS: METOPROLOL SUCCINATE (ER) 25 MG TAB.ER.24H PO SCH (20:40)
[2019-10-02] MEDS: FUROSEMIDE 10 MG/ML 2 ML VIAL IV SCH (20:41)
[2019-10-02] MEDS: PIPERACILLIN-TAZOBACTAM 3.375 GM in SODIUM CHLORIDE 0.9% 100 ML IVPB SCH (23:36)
--- NOTE | 2019-10-03 00:10 | P.HPIM ---
History of Present Illness H&P Date: 10/02/19 Chief Complaint: Shortness of breath. Patient is a 69-year-old male with a known history of COPD on home oxygen at 4 L with nasal cannula, paroxysmal atrial fibrillation on anticoagulation with Coumadin, hypertension, hyperlipidemia, and morbid obesity with BMI 36.3 came to ER with complaints of difficulty in breathing worsened the past 1-2 weeks. Symptoms got worse during the last couple of days and has been increasingly fatigued and having exertional dyspnea. Patient is unable to walk to the bathroom without short of breath. Patient was also having increased leg s welling and also weight gain about 10 pounds over the last 1 week. Denied any chest pain. Does have cough without much sputum production. No palpitations. No nausea vomiting. No dysuria or hematuria. Chest x-ray showed chronic infiltrate in the medial aspect of the left lower lobe. Tiny new infiltrate in the region of the right cardiophrenic angle. Could not exclude early pneumonia. WBC 17.2 and hemoglobin 8.4 INR 1.8 Sodium 141, BUN/creatinine 16/0.97 EKG showed sinus tachycardia. BNP 755 Patient was tachycardic and T-max 99.2 on admission. Review of Systems Constitutional: Patient denies any fever or chills . No generalized weakness or weight loss. Increasingly fatigued and exertional dyspnea. Abdomen: Patient denied nausea vomiting and diarrhea and abdominal pain. Cardiovascular: Patient denies any chest pain or short of breath no palpitations. Leg swelling. Respiratory: Patient does have cough without much sputum production.. Does have shortness of breath Neurologic: Patient denied any numbness or tingling headache. Musculoskeletal: Patient denies any complaints of joint swelling or deformity. Skin: Negative Psychiatric: Negative Endocrine: No heat or cold intolerance. No recent weight gain. Genitourinary: No dysuria or hematuria. All other 14 point ROS negative except the above Past Medical History Past Medical History: Atrial Fibrillation, Heart Failure, COPD, Eye Disorder, Hyperlipidemia, Hypertension, Osteoarthritis (OA), Pneumonia Additional Past Medical History / Comment(s): COPD,02 4 liters n/c at hs, previous history of acute respiratory failure related to COPD exacerbation/vented, glaucoma, obesity, chronic atrial fibrillati on/flutter,wears contact lense rt eye and also weras glasses History of Any Multi-Drug Resistant Organisms: None Reported Past Surgical History: Ablation Additional Past Surgical History / Comment(s): right eye surgery.colonoscopy Past Anesthesia/Blood Transfusion Reactions: No Reported Reaction Past Psychological History: No Psychological Hx Reported Additional Psychological History / Comment(s): Lives with , feels safe. Lives in own home. Smoking Status: Former smoker Past Alcohol Use History: None Reported Additional Past Alcohol Use History / Comment(s): HX OF 52 YR SMOKER, USED TO SMOKE 2 PPD. Quite December 2018 Past Drug Use History: None Reported - Past Family History Brother(s) Family Medical History: Cancer Additional Family Medical History / Comment(s): CMML Medications and Allergies Home Medications Medication Instructions Recorded Confirmed Type Atorvastatin [Lipitor] 20 mg PO HS 05/02/17 10/02/19 History Latanoprost Ophth [Xalatan 0.005%] 1 drop BOTH EYES HS 01/11/19 10/02/19 History Formoterol Fumarate [Perforomist] 20 mcg INHALATION RT-BID 03/11/19 10/02/19 History Furosemide [Lasix] 20 mg PO BID 03/11/19 10/02/19 History Lisinopril [Zestril] 5 mg PO DAILY 03/11/19 10/02/19 History Metoprolol Succinate (ER) [Toprol 37.5 mg PO BID 03/11/19 10/02/19 History XL] Spironolactone [Aldactone] 25 mg PO DAILY 03/11/19 10/02/19 History Budesonide [Pulmicort] 0.5 mg INHALATION RT-BID 30 Days 08/27/19 10/02/19 Rx #60 nebu Albuterol Nebulized [Ventolin 2.5 mg INHALATION RT-QID 10/02/19 10/02/19 History Nebulized] Ipratropium Nebulized [Atrovent 0.5 mg INHALATION RT-QID 10/02/19 10/02/19 History Nebulized 0.2 MG/ML] Warfarin [Coumadin] 5 mg PO MOFR 10/02/19 10/02/19 History Warfarin [Coumadin] 7.5 mg PO SUTUWETHSA 10/02/19 10/02/19 History Yuperli 1 dose INHALATION RT-DAILY 10/02/19 10/02/19 History Allergies Allergy/AdvReac Type Severity Reaction Status Date / Time No Known Allergies Allergy Verified 10/02/19 13:35 Physical Exam Vitals: Vital Signs Temp Pulse Pulse Resp BP BP Pulse Ox 10/02/19 20:43 98 18 121/57 97 10/02/19 20:41 108 H 10/02/19 20:29 108 H 10/02/19 20:28 104 H 10/02/19 20:20 104 H 10/02/19 16:34 104 H 10/02/19 16:19 100 10/02/19 14:46 99.2 F 102 H 20 109/95 90 L 10/02/19 12:50 99.0 F 112 H 20 140/67 90 L Intake and Output 10/02/19 10/02/19 10/03/19 14:59 22:59 06:59 Intake Total 55 Balance 55 Intake: Intake, IV Titration 55 Amount Piperacillin-Tazobactam 3 25 .375 gm In Sodium Chloride 0.9% 100 ml @ 25 mls/hr IVPB Q8HR [facility] Rx# :[id number] Sodium Chloride 0.9% 1, 30 000 ml @ 100 mls/hr IV . Q10H [facility] Rx#:[id number] Other: Voiding Method Toilet Weight 117.934 kg 117.934 kg PHYSICAL EXAMINATION: Patient is lying in the bed comfortably, mild distress, awake alert and oriented.. HEENT: Normocephalic. Neck is supple. Pupils reactive. Nostrils clear. Oral cavity is moist. Ears reveal no drainage. Neck reveals no JVD, carotid bruits, or thyromegaly. CHEST EXAMINATION: Trachea is central. Symmetrical expansion. Lateral diminished air entry and scattered rhonchi and diffuse wheezing.. CARDIAC: Normal S1, S2 with no gallops. No murmurs ABDOMEN: Soft. Bowel sounds normal. No organomegaly. No abdominal bruits. Extremities: 2+ edema. No clubbing or cyanosis Neurologically awake, alert, oriented x3 with well-coordinated movements. No focal deficits noted Skin: No rash or skin lesions. Psychiatric: Coperative. Nonsuicidal Musculoskeletal: No joint swelling or deformity. Normal range of motion. Results CBC & Chem 7: 10/02/19 12:33 10/02/19 12:33 Labs: Abnormal Lab Results - Last 24 Hours (Table) 10/02/19 10/02/19 10/02/19 Range/Units 12:33 12:33 12:33 WBC 17.2 H (3.8-10.6) k/uL RBC 3.34 L (4.30-5.90) m/uL Hgb 8.4 L (13.0-17.5) gm/dL Hct 28.9 L (39.0-53.0) % MCHC 28.9 L (31.0-37.0) g/dL RDW 17.5 H (11.5-15.5) % Plt Count 537 H (150-450) k/uL Neutrophils # 13.1 H (1.3-7.7) k/uL Monocytes # 1.5 H (0-1.0) k/uL Basophils # 0.4 H (0-0.2) k/uL PT 17.4 H (9.0-12.0) sec INR 1.8 H (<1.2) APTT 33.6 H (22.0-30.0) sec Chloride 96 L (98-107) mmol/L Carbon Dioxide 40 H (22-30) mmol/L Glucose 120 H (74-99) mg/dL Total Protein 5.8 L (6.3-8.2) g/dL Albumin 3.4 L (3.5-5.0) g/dL Thrombosis Risk Factor Assmnt - DVT/VTE Prophylaxis DVT/VTE Prophylaxis: Pharmacologic Prophylaxis ordered - Choose All That Apply Each Factor Represents 1 point: Abnormal pulmonary function (COPD), Obesity (BMI >25), Serious lung disease incl. pneumonia (< 1month) Each Risk Factor Represents 2 Points: Age 61-74 years Thrombosis Risk Factor Assessment Total Risk Factor Score: 5 Thrombosis Risk Factor Assessment Level: High Risk Assessment and Plan Assessment: Acute severe COPD exacerbation Chronic hypoxic respiratory failure secondary to COPD on home oxygen 4 L Right lower lobe pneumonia and Sepsis secondary to pneumonia patient was tachycardic and has leukocytosis 17.4 on admission Acute on Chronic CHF with mildly reduced systolic dysfunction. Paroxysmal atrial fibrillation on anticoagulation with Coumadin. Currently in sinus rhythm. Morbid obesity with BMI 36.3 Hypertension Hyperlipidemia Osteoarthritis Previous history of smoking Coumadin monitoring and subtherapeutic INR level Plan: Patient will be continued on IV steroids, DuoNeb's and Pulmicort/Perforomist. Continue with antibiotics Levaquin and Zosyn. Follow culture reports. Continue with IV Lasix 20 mg daily as blood pressure tolerates. Continue with metoprolol, lisinopril, aspirin and statins and spironolactone. Pulmonary was consulted. Follow-up repeat CBC and BMP tomorrow. Further recommendations based on the clinical course. Prognosis is guarded with multiple medical problems and comorbid conditions. Discussed with his and patient at bedside in detail. Time with Patient: Greater than 30
[2019-10-03] MEDS: methylPREDNISolone SOD SUCCI 125 MG/2 ML VIAL IV SCH ×4 (05:51→23:40)
[2019-10-03 07:05] LABS: Anisocytosis Slight; Basophils % (A) 0 %; Eosinophils % (A) 0 %; HCT 27.9 % (39.0-53.0); HGB 7.9 gm/dL (13.0-17.5); Hypochromasia Marked; Lymphocytes % (A) 5 %; MCH 24.9 pg (25.0-35.0); MCHC 28.3 g/dL (31.0-37.0); Mean Platelet Volume 7.1; Monocytes # (A) 0.4 k/uL (0-1.0); Monocytes % (A) 2 %; Neutrophils % (A) 92 %; Platelet Count 515 k/uL (150-450); RBC 3.18 m/uL (4.30-5.90); RDW 17.3 % (11.5-15.5); WBC 19.5 k/uL (3.8-10.6)
[2019-10-03 07:12] LABS: INR 1.9 (<1.2); Prothrombin Time 18.8 sec (9.0-12.0)
--- NOTE | 2019-10-03 07:12 | XR ---
EXAMINATION TYPE: XR chest 2V DATE OF EXAM: 10/03/2019 HISTORY: pneumonia. REFERENCE: Previous study dated 10/02/2019. FINDINGS: There is chronic opacity behind the left heart. There is mild vascular congestion and inter stitial change. Infiltrate in the right lung base has resolved. The heart is not enlarged. Pleural sp aces are clear. IMPRESSION: 1. CHRONIC LEFT BASILAR DENSITY. 2. MILD CHANGES OF CONGESTIVE HEART FAILURE.
[2019-10-03 07:18] LABS: Calcium 8.7 mg/dL (8.4-10.2); Potassium 5.7 mmol/L (3.5-5.1)
[2019-10-03] MEDS: SPIRONOLACTONE 25 MG TAB PO SCH (08:13)
[2019-10-03] MEDS: METOPROLOL SUCCINATE (ER) 25 MG TAB.ER.24H PO SCH ×2 (08:13→20:25)
[2019-10-03] MEDS: LISINOPRIL 5 MG TAB PO SCH (08:15)
[2019-10-03] MEDS: FUROSEMIDE 10 MG/ML 2 ML VIAL IV SCH (08:15)
[2019-10-03] MEDS: IPRATROPIUM-ALBUTEROL 3 ML NEB INHALATION SCH ×4 (08:42→18:59)
[2019-10-03] MEDS: BUDESONIDE 0.5 MG/2 ML NEBU INHALATION SCH ×2 (08:42→18:59)
[2019-10-03] MEDS: FORMOTEROL FUMARATE 20 MCG/2 ML NEBU INHALATION SCH ×2 (08:42→18:59)
[2019-10-03] MEDS: PIPERACILLIN-TAZOBACTAM 3.375 GM in SODIUM CHLORIDE 0.9% 100 ML IVPB SCH ×3 (09:24→23:40)
[2019-10-03] MEDS: LEVOFLOXACIN 750MG-D5W PMX 750 MG in DEXTROSE/WATER 1 150ML.BAG IVPB SCH (13:33)
--- NOTE | 2019-10-03 14:07 | P.CNPUL ---
History of Present Illness Consult date: 10/03/19 Reason for consult: dyspnea, COPD History of present illness: Louis is a 69-year-old male patient with advanced oxygen-dependent COPD and is maintained on oxygen at 4 L 24 7. He also utilizes a combination of Perforomist and Pulmicort neb last 2 minutes twice a day and more recently I started him onYuperli less treatments once a day. He also does albuterol nebulized treatments up to 4 times a day. He was doing well on rounds few days ago s tarted having increased mucus production and worsening shortness of breath. He tells the that after the addition of the Yuperli for secretions improved. Nevertheless, his condition is worse and for that reason he came in to the hospital. Chest x-ray shows a limited right lower lobe infiltration probably an early pneumonia. His white cell count is at 19.5. He was started on a combination of Zosyn and Levaquin. His sputum sample is being collected. His EF based on the most recent echocardiogram shows improvement and instructed 50- 55%. He has extensive edema in lower extremities. Has obstructive sleep apnea and is maintained on CPAP. His sleep apnea is severe with an AHI of 47 and is maintained on CPAP at a pressure of 14 along with oxygen. Review of Systems CONSTITUTIONAL: Denies any recent significant weight loss or weight gain. EYES: Denies change in vision. EARS, NOSE, MOUTH, THROAT: Denies headaches, denies sore throat. CARDIOVASCULAR: Denies chest pain, palpitations or syncopal episodes. RESPIRATORY: Positive for shortness of breath, cough, congestion no hemoptysis. GASTROINTESTINAL: Denies change in appetite, denies abdominal pain GENITOURINARY: Denies hematuria, denies infections. MUSKULOSKELETAL: Denies pain, there is significant amount of lower extremity edema pitting in the lower extremities bilaterally INTEGUMENTARY: Denies rash, denies eczema. NEUROLOGICAL: Denies recent memory loss, no recent seizure activity. PSYCHIATRIC: Denies anxiety, denies depression. HEMATOLOGIC/LYMPHATIC: Denies anemia, denies enlarged lymph nodes. Past Medical History Past Medical History: Atrial Fibrillation, Heart Failure, COPD, Eye Disorder, Hyperlipidemia, Hypertension, Osteoarthritis (OA), Pneumonia Additional Past Medical History / Comment(s): COPD,02 4 liters n/c at hs, previous history of acute respiratory failure related to COPD exacerbation/vented, glaucoma, obesity, chronic atrial fibrillation/flutter,wears contact lense rt eye and also weras glasses History of Any Multi-Drug Resistant Organisms: None Reported Past Surgical History: Ablation Additional Past Surgical History / Comment(s): right eye surgery.colonoscopy Past Anesthesia/Blood Transfusion Reactions: No Reported Reaction Past Psychological History: No Psychological Hx Reported Additional Psychological History / Comment(s): Lives with , feels safe. Lives in own home. Smoking Status: Former smoker Past Alcohol Use History: None Reported Additional Past Alcohol Use History / Comment(s): HX OF 52 YR SMOKER, USED TO SMOKE 2 PPD. Quite December 2018 Past Drug Use History: None Reported - Past Family History Brother(s) Family Medical History: Cancer Additional Family Medical History / Comment(s): CM Medications and Allergies Home Medications Medication Instructions Recorded Confirmed Type Atorvastatin [Lipitor] 20 mg PO HS 05/02/17 10/02/19 History Latanoprost Ophth [Xalatan 0.005%] 1 drop BOTH EYES HS 01/11/19 10/02/19 History Formoterol Fumarate [Perforomist] 20 mcg INHALATION RT-BID 03/11/19 10/02/19 History Furosemide [Lasix] 20 mg PO BID 03/11/19 10/02/19 History Lisinopril [Zestril] 5 mg PO DAILY 03/11/19 10/02/19 History Metoprolol Succinate (ER) [Toprol 37.5 mg PO BID 03/11/19 10/02/19 History XL] Spironolactone [Aldactone] 25 mg PO DAILY 03/11/19 10/02/19 History Budesonide [Pulmicort] 0.5 mg INHALATION RT-BID 30 Days 08/27/19 10/02/19 Rx #60 nebu Albuterol Nebulized [Ventolin 2.5 mg INHALATION RT-QID 10/02/19 10/02/19 History Nebulized] Ipratropium Nebulized [Atrovent 0.5 mg INHALATION RT-QID 10/02/19 10/02/19 History Nebulized 0.2 MG/ML] Warfarin [Coumadin] 5 mg PO MOFR 10/02/19 10/02/19 History Warfarin [Coumadin] 7.5 mg PO SUTUWETHSA 10/02/19 10/02/19 History Yuperli 1 dose INHALATION RT-DAILY 10/02/19 10/02/19 History Allergies Allergy/AdvReac Type Severity Reaction Status Date / Time No Known Allergies Allergy Verified 10/02/19 13:35 Physical Exam Vitals: Vital Signs Temp Pulse Pulse Resp BP BP Pulse Ox 10/03/19 12:15 101 H 10/03/19 11:48 98 F 99 22 106/53 91 L 10/03/19 09:12 97 10/03/19 08:57 99 10/03/19 08:43 96 94 L 10/03/19 05:00 97.8 F 89 20 123/60 96 10/02/19 20:43 98 18 121/57 97 10/02/19 20:41 108 H 10/02/19 20:29 108 H 10/02/19 20:28 104 H 10/02/19 20:20 104 H 10/02/19 16:34 104 H 10/02/19 16:19 100 10/02/19 14:46 99.2 F 102 H 20 109/95 90 L Intake and Output 10/02/19 10/03/19 10/03/19 22:59 06:59 14:59 Intake Total 55 140 100 Balance 55 140 100 Intake: Intake, IV Titration 55 140 100 Amount Piperacillin-Tazobactam 3 25 100 100 .375 gm In Sodium Chloride 0.9% 100 ml @ 25 mls/hr IVPB Q8HR [facility] Rx# :[id number] Sodium Chloride 0.9% 1, 30 40 000 ml @ 100 mls/hr IV . Q10H [facility] Rx#:[id number] Other: Voiding Method Toilet Weight 117.934 kg 116.8 kg GENERAL EXAM: Obese. Alert, active, comfortable in no apparent distress. On 4 L nasal cannula. HEAD: Normocephalic. EYES: Normal reaction of pupils, equal size. NOSE: Clear with pink turbinates. THROAT: Crowding the posterior pharynx. No erythema or exudates. NECK: No masses, no JVD. CHEST: No chest wall deformity. LUNGS: Breath sounds bilaterally along with prolongation of expiratory phase of breathing and diffuse expiratory wheezes throughout the lung his bilaterally. CVS: S1 and S2 normal with no audible murmur, regular rhythm. ABDOMEN: No hepatosplenomegaly, normal bowel sounds, no guarding or rigidity. SPINE: No scoliosis or deformity SKIN: No rashes CENTRAL NERVOUS SYSTEM: No focal deficits, tone is normal in all 4 extremities. EXTREMITIES: There is +2 pitting edema in lower extremities bilaterally and there is significant peripheral edema. No clubbing, no cyanosis. Peripheral pulses are intact. Results - Laboratory Findings CBC and BMP: 10/03/19 06:37 10/03/19 06:37 PT/INR, D-dimer PT 18.8 sec (9.0-12.0) H 10/03/19 06:37 INR 1.9 (<1.2) H 10/03/19 06:37 Abnormal lab findings: Abnormal Labs 10/02/19 10/02/19 10/02/19 12:33 12:33 12:33 WBC 17.2 H RBC 3.34 L Hgb 8.4 L Hct 28.9 L MCH MCHC 28.9 L RDW 17.5 H Plt Count 537 H Neutrophils # 13.1 H Monocytes # 1.5 H Basophils # 0.4 H PT 17.4 H INR 1.8 H APTT 33.6 H Potassium Chloride 96 L Carbon Dioxide 40 H BUN Glucose 120 H Total Protein 5.8 L Albumin 3.4 L 10/03/19 10/03/19 10/03/19 06:37 06:37 06:37 WBC 19.5 H RBC 3.18 L Hgb 7.9 L Hct 27.9 L MCH 24.9 L MCHC 28.3 L RDW 17.3 H Plt Count 515 H Neutrophils # 18.0 H Monocytes # Basophils # PT 18.8 H INR 1.9 H APTT Potassium 5.7 H Chloride 93 L Carbon Dioxide 42 H* BUN 22 H Glucose 159 H Total Protein Albumin - Diagnostic Findings Chest x-ray: image reviewed Assessment and Plan Plan: #1 acute COPD exacerbation with an early right lower lobe pneumonia. The patient came into the hospital because of an acute on top of chronic shortness of breath. There is a possibility of a right lower lobe pneumonia. He had a l ow-grade fever. He has leukocytosis. Has increased sputum production. His COPD is severe and is in oxygen at 4 L and he has had several hospitalization. He is gold stage D. #2 Acute on chronic trach respiratory failure secondary to an acute exacerbation of chronic obstructive pulmonary disease. #3 Obstructive sleep apnea, severe with an AHI of 47.7, to be set up on CPAP at 14 cm of [facility]. #4 Severe chronic obstructive pulmonary disease with previous FEV1 value 35% of predicted. Most recent FEV1 up to 41% post treatment. #5 Chronic systolic heart failure with an ejection fraction of 30-35% subsequent improvement in his ejection fraction which is up to 50-55%,and increased lower extremity edema, #6 Chronic atrial fibrillation, anticoagulated with warfarin. INR is slightly subtherapeutic #7. Lower extremity edema #8 Obesity. plan Sputum Gram stain and culture IV Solu-Medrol DuoNeb nebulized treatments around the clock Perforomist and Pulmicort overestimates twice a day IV Zosyn and Levaquin IV Lasix he is utilizing a combination of Perforomist and Pulmicort and Shaye outpatient He is on oxygen at 4 L Long-term prognosis poor due to above-mentioned comorbidities
[2019-10-03] MEDS ORDERED: WARFARIN 7.5 MG TAB PO ONE (18:00)
[2019-10-03] MEDS: ATORVASTATIN 20 MG TAB PO SCH (20:25)
[2019-10-03] MEDS: LATANOPROST 0.005% OPHTH DROPS 2.5 ML BTL BOTH EYES SCH (20:25)
[2019-10-04] MEDS: methylPREDNISolone SOD SUCCI 125 MG/2 ML VIAL IV SCH ×4 (06:17→23:31)
[2019-10-04] MEDS: BUDESONIDE 0.5 MG/2 ML NEBU INHALATION SCH ×2 (07:35→20:42)
[2019-10-04] MEDS: IPRATROPIUM-ALBUTEROL 3 ML NEB INHALATION SCH ×4 (07:35→20:42)
[2019-10-04] MEDS: FORMOTEROL FUMARATE 20 MCG/2 ML NEBU INHALATION SCH ×2 (07:36→20:42)
[2019-10-04 07:50] LABS: INR 2.8 (<1.2); Prothrombin Time 26.9 sec (9.0-12.0)
[2019-10-04] MEDS: SPIRONOLACTONE 25 MG TAB PO SCH (08:00)
[2019-10-04] MEDS: PIPERACILLIN-TAZOBACTAM 3.375 GM in SODIUM CHLORIDE 0.9% 100 ML IVPB SCH ×3 (08:00→23:31)
[2019-10-04] MEDS: LISINOPRIL 5 MG TAB PO SCH (08:00)
[2019-10-04] MEDS: FUROSEMIDE 10 MG/ML 2 ML VIAL IV SCH ×2 (08:00→20:34)
[2019-10-04] MEDS: METOPROLOL SUCCINATE (ER) 25 MG TAB.ER.24H PO SCH ×2 (08:01→20:33)
--- NOTE | 2019-10-04 11:42 | P.PN ---
Subjective Progress Note Date: 10/04/19 Principal diagnosis: COPD exacerbation with an early right lower lobe pneumonia Louis is a 69-year-old male patient with advanced oxygen-dependent COPD and is maintained on oxygen at 4 L 24 7. He also utilizes a combination of Perforomist and Pulmicort neb last 2 minutes twice a day and more recently I started him onYuperli less treatments once a day. He also does albuterol nebulized treatments up to 4 times a day. He was doing well on rounds few days ago started having increased mucus production and worsening shortness of breath. He tells the that after the addition of the Yuperli for secretions improved. Nevertheless, his condition is worse and for that reason he came in to the hospital. Chest x-ray shows a limited right lower lobe infiltration probably an early pneumonia. His white cell count is at 19.5. He was started on a combination of Zosyn and Levaquin. His sputum sample is being collected. His EF based on the most recent echocardiogram shows improvement and instructed 50- 55%. He has extensive edema in lower extremities. Has obstructive sleep apnea and is maintained on CPAP. His sleep apnea is severe with an AHI of 47 and is maintained on CPAP at a pressure of 14 along with oxygen. On 10/04/2019 patient seen in follow-up on medical surgical floor. Still has significant exertional dyspnea and wheezing, but no acute distress. He 5 L of oxygen with a pulse ox of 92%, he is afebrile, hemodynamically stable, lung sounds reveal diffuse wheezes, occasional cough. He is on a combination of Zosyn and Levaquin for right lower lobe pneumonia, no new labs today other than INR which is at 2.8 on today's labs. Blood and sputum cultures are pending, remains on IV Lasix at 20 mg daily, patient still has quite significant lower extremity edema Objective - Vital Signs Vital signs: Vital Signs Temp 97.9 F 10/04/19 11:27 Pulse 100 10/04/19 11:28 Resp 24 10/04/19 11:27 BP 101/57 10/04/19 11:27 Pulse Ox 92 L 10/04/19 11:27 Intake & Output 10/03/19 10/04/19 10/04/19 18:59 06:59 18:59 Intake Total 100 140 Balance 100 140 Weight 117.39 kg Intake: IV 40 normal saline @ 10 40 Intake, IV Titration 100 100 Amount Piperacillin-Tazobactam 3 100 100 .375 gm In Sodium Chloride 0.9% 100 ml @ 25 mls/hr IVPB Q8HR [facility] Rx# :[id number] Other: Voiding Method Toilet - Exam GENERAL EXAM: Alert, very pleasant, 69-year-old white male 5 L of oxygen with a pulse ox of 92%, comfortable in no apparent distress. HEAD: Normocephalic/atraumatic. EYES: Normal reaction of pupils, equal size. Conjunctiva pink, sclera white. NOSE: Clear with pink turbinates. THROAT: No erythema or exudates. NECK: No masses, no JVD, no thyroid enlargement, no adenopathy. CHEST: No chest wall deformity. Symmetrical expansion. LUNGS: Equal air entry with diffuse wheezes CVS: Regular rate and rhythm, normal S1 and S2, no gallops, no murmurs, no rubs ABDOMEN: Soft, nontender. No hepatosplenomegaly, normal bowel sounds, no guarding or rigidity. EXTREMITIES: No clubbing, 2+ lower extremity edema, no cyanosis, 2+ pulses and upper and lower extremities. MUSCULOSKELETAL: Muscle strength and tone normal. SPINE: No scoliosis or deformity SKIN: No rashes CENTRAL NERVOUS SYSTEM: Alert and oriented -3. No focal deficits, tone is normal in all 4 extremities. PSYCHIATRIC: Alert and oriented -3. Appropriate affect. Intact judgment and insight. - Labs CBC & Chem 7: 10/03/19 06:37 10/03/19 06:37 Labs: Abnormal Lab Results - Last 24 Hours (Table) 10/04/19 Range/Units 06:57 PT 26.9 H (9.0-12.0) sec INR 2.8 H (<1.2) Microbiology - Last 24 Hours (Table) 10/03/19 14:30 Gram Stain - Preliminary Sputum Sputum Culture - Preliminary 10/02/19 14:28 Blood Culture - Preliminary Blood No Growth after 24 hours Assessment and Plan Plan: Assessment: #1. Acute exacerbation of chronic obstructive pulmonary disease complicated by early right lower lobe pneumonia #2. Acute on chronic hypoxemic and hypercapnic respiratory failure secondary to acute exacerbation of COPD #3. Obstructive sleep apnea, severe with that AHI score of 47.7 and patient is maintained on CPAP therapy at 14 cm of water #4. Severe COPD with previous FEV1 value of 35% of predicted, with most recent improvement up to 41% post treatment #5. Chronic systolic heart failure with an ejection fraction of 30-35%, with subsequent improvement in his ejection fraction which is currently at 50-55%, increased lower extremity edema #6. Chronic atrial fibrillation on warfarin, today's INR is therapeutic at 2.8 #7. Chronic lower extremity edema, worsened on presentation this admission #8. Obesity Plan: We'll await the final sputum cultures, patient has been afebrile, we'll increase the diuretics, daily weights, accurate intake and output, repeat blood work tomorrow, continue nebulized back with evidence, continue Levaquin and Zosyn. I performed a history & physical examination of the patient and discussed their management with my nurse practitioner, Chasity Wheeler. I reviewed the nurse practitioner's note and agree with the documented findings and plan of care. Lung sounds are positive for diffuse wheezes throughout the lung limon. The findings and the impression was discussed with the patient. I attest to the documentation by the nurse practitioner. Time with Patient: Less than 30
[2019-10-04] MEDS: LEVOFLOXACIN 750MG-D5W PMX 750 MG in DEXTROSE/WATER 1 150ML.BAG IVPB SCH (13:08)
[2019-10-04] MEDS ORDERED: WARFARIN 3 MG TAB PO ONE (18:00)
[2019-10-04] MEDS: ATORVASTATIN 20 MG TAB PO SCH (20:33)
[2019-10-04] MEDS: LATANOPROST 0.005% OPHTH DROPS 2.5 ML BTL BOTH EYES SCH (20:34)
--- NOTE | 2019-10-04 21:57 | P.PN ---
Subjective Progress Note Date: 10/03/19 Principal diagnosis: acute COPD exacerbation advanced COPD Patient is a 69-year-old male with a known history of COPD on home oxygen at 4 L with nasal cannula, paroxysmal atrial fibrillation on anticoagulation with Coumadin, hypertension, hyperlipidemia, and morbid obesity with BMI 36.3 came to ER with complaints of difficulty in breathing worsened the past 1-2 weeks. Symptoms got worse during the last couple of days and has been increasingly fatigued and having exertional dyspnea. Patient is unable to walk to the bathroom without short of breath. Patient was also having increased leg swelling and also weight gain about 10 pounds over the last 1 week. Denied any chest pain. Does have cough without much sputum production. No palpitations. No nausea vomiting. No dysuria or hematuria. Chest x-ray showed chronic infiltrate in the medial aspect of the left lower l obe. Tiny new infiltrate in the region of the right cardiophrenic angle. Could not exclude early pneumonia. WBC 17.2 and hemoglobin 8.4 INR 1.8 Sodium 141, BUN/creatinine 16/0.97 EKG showed sinus tachycardia. BNP 755 Patient was tachycardic and T-max 99.2 on admission. 10/03/2018 Patient is still having shortness of breath at baseline. Diffuse wheezing and rhonchi bilaterally. Still having leg swelling and exertional short of breath. Patient is being continued on IV steroids, DuoNeb's, Pulmicort and Perforomist. Also on Lasix 20 mg IV daily. Of note is following. Patient is afebrile.patient does have leukocytosis. No complaints of chest pain. Does have cough without sputum production. Current medications reviewed. Objective - Vital Signs Vital signs: Vital Signs Temp 98.1 F 10/03/19 20:51 Pulse 99 10/03/19 20:51 Resp 20 10/03/19 20:51 BP 115/58 10/03/19 20:51 Pulse Ox 92 L 10/03/19 20:51 Intake & Output 10/03/19 10/03/19 10/04/19 06:59 18:59 06:59 Intake Total 195 100 40 Balance 195 100 40 Weight 116.8 kg Intake: IV 40 normal saline @ 10 40 Intake, IV Titration 195 100 Amount Piperacillin-Tazobactam 3 125 100 .375 gm In Sodium Chloride 0.9% 100 ml @ 25 mls/hr IVPB Q8HR [facility] Rx# :[id number] Sodium Chloride 0.9% 1, 70 000 ml @ 100 mls/hr IV . Q10H [facility] Rx#:[id number] Other: Voiding Method Toilet - Exam PHYSICAL EXAMINATION: Patient is lying in the bed comfortably, no distress, awake alert and oriented.. HEENT: Normocephalic. Neck is supple. Pupils reactive. Nostrils clear. Oral cavity is moist. Ears reveal no drainage. Neck reveals no JVD, carotid bruits, or thyromegaly. CHEST EXAMINATION: Trachea is central. Symmetrical expansion. Lateral diminished air entry and scattered rhonchi and diffuse wheezing.. CARDIAC: Normal S1, S2 with no gallops. No murmurs ABDOMEN: Soft. Bowel sounds normal. No organomegaly. No abdominal bruits. Extremities: 2+ edema. No clubbing or cyanosis Neurologically awake, alert, oriented x3 with well-coordinated movements. No focal deficits noted Skin: No rash or skin lesions. Psychiatric: Coperative. Nonsuicidal Musculoskeletal: No joint swelling or deformity. Normal range of motion. - Labs CBC & Chem 7: 10/03/19 06:37 10/03/19 06:37 Labs: Abnormal Lab Results - Last 24 Hours (Table) 10/03/19 10/03/19 10/03/19 Range/Units 06:37 06:37 06:37 WBC 19.5 H (3.8-10.6) k/uL RBC 3.18 L (4.30-5.90) m/uL Hgb 7.9 L (13.0-17.5) gm/dL Hct 27.9 L (39.0-53.0) % MCH 24.9 L (25.0-35.0) pg MCHC 28.3 L (31.0-37.0) g/dL RDW 17.3 H (11.5-15.5) % Plt Count 515 H (150-450) k/uL Neutrophils # 18.0 H (1.3-7.7) k/uL PT 18.8 H (9.0-12.0) sec INR 1.9 H (<1.2) Potassium 5.7 H (3.5-5.1) mmol/L Chloride 93 L (98-107) mmol/L Carbon Dioxide 42 H* (22-30) mmol/L BUN 22 H (9-20) mg/dL Glucose 159 H (74-99) mg/dL Microbiology - Last 24 Hours (Table) 10/03/19 14:30 Gram Stain - Preliminary Sputum Sputum Culture - Preliminary 10/02/19 14:28 Blood Culture - Preliminary Blood No Growth after 24 hours Assessment and Plan Assessment: Acute severe COPD exacerbation Chronic hypoxic respiratory failure secondary to COPD on home oxygen 4 L Right lower lobe pneumonia and Sepsis secondary to pneumonia patient was tachycardic and has leukocytosis 17.4 on admission Acute on Chronic CHF with mildly reduced systolic dysfunction. Paroxysmal atrial fibrillation on anticoagulation with Coumadin. Currently in sinus rhythm. Morbid obesity with BMI 36.3 Hypertension Hyperlipidemia Osteoarthritis Previous history of smoking Coumadin monitoring and subtherapeutic INR level Plan: Patient will be continued on IV steroids, DuoNeb's and Pulmicort/Perforomist. Continue with antibiotics Levaquin and Zosyn. Follow culture reports. Continue with IV Lasix 20 mg daily as blood pressure tolerates. Continue with metoprolol, lisinopril, aspirin and statins and spironolactone. Pulmonary was consulted. Follow-up repeat CBC and BMP tomorrow. Further recommendations based on the clinical course. Prognosis is guarded with multiple medical problems and comorbid conditions. Discussed with his and patient at bedside in detail. Time with Patient: Greater than 30
--- NOTE | 2019-10-04 22:02 | P.PN ---
Subjective Progress Note Date: 10/04/19 Principal diagnosis: acute COPD exacerbation advanced COPD Patient is a 69-year-old male with a known history of COPD on home oxygen at 4 L with nasal cannula, paroxysmal atrial fibrillation on anticoagulation with Coumadin, hypertension, hyperlipidemia, and morbid obesity with BMI 36.3 came to ER with complaints of difficulty in breathing worsened the past 1-2 weeks. Symptoms got worse during the last couple of days and has been increasingly fatigued and having exertional dyspnea. Patient is unable to walk to the bathroom without short of breath. Patient was also having increased leg swelling and also weight gain about 10 pounds over the last 1 week. Denied any chest pain. Does have cough without much sputum production. No palpitations. No nausea vomiting. No dysuria or hematuria. Chest x-ray showed chronic infiltrate in the medial aspect of the left lower l obe. Tiny new infiltrate in the region of the right cardiophrenic angle. Could not exclude early pneumonia. WBC 17.2 and hemoglobin 8.4 INR 1.8 Sodium 141, BUN/creatinine 16/0.97 EKG showed sinus tachycardia. BNP 755 Patient was tachycardic and T-max 99.2 on admission. 10/03/2018 Patient is still having shortness of breath at baseline. Diffuse wheezing and rhonchi bilaterally. Still having leg swelling and exertional short of breath. Patient is being continued on IV steroids, DuoNeb's, Pulmicort and Perforomist. Also on Lasix 20 mg IV daily. Of note is following. Patient is afebrile.patient does have leukocytosis. No complaints of chest pain. Does have cough without sputum production. 10/04/2019 patient is still dyspneic. Continued on IV steroids, breathing treatments and Lasix. No complaints of chest pain. Increased dose of IV Lasix. Continued on antibiotics for right lower lobe pneumonia. Pulmonary is following. Increased leukocytosis likely duesteroids . Patient is afebrile.blood pressure is fairly controlled. Current medications reviewed. Active Medications Albuterol/Ipratropium (Duoneb 0.5 Mg-3 Mg/3 Ml Soln) 3 ml INHALATION RT-QID [facility] Last Admin: 10/04/19 20:42 Dose: 3 ml Documented by: Albuterol/Ipratropium (Duoneb 0.5 Mg-3 Mg/3 Ml Soln) 3 ml INHALATION RT-Q4H PRN PRN Reason: shortness of breath Atorvastatin Calcium (Lipitor) 20 mg PO HS [facility] Last Admin: 10/04/19 20:33 Dose: 20 mg Documented by: Budesonide (Pulmicort) 0.5 mg INHALATION RT-BID [facility] Last Admin: 10/04/19 20:42 Dose: 0.5 mg Documented by: Formoterol Fumarate (Perforomist) 20 mcg INHALATION RT-BID [facility] Last Admin: 10/04/19 20:42 Dose: 20 mcg Documented by: Furosemide (Lasix) 20 mg IV Q12HR [facility] Last Admin: 10/04/19 20:34 Dose: 20 mg Documented by: Piperacillin Sod/Tazobactam (Sod 3.375 gm/ Sodium Chloride) 100 mls @ 25 mls/hr IVPB Q8HR [facility] Stop: 10/12/19 00:01 Last Admin: 10/04/19 17:29 Dose: 25 mls/hr Documented by: Latanoprost (Xalatan 0.005%) 1 drops [facility] Last Admin: 10/04/19 20:34 Dose: 1 drops Documented by: Levofloxacin (Levaquin) 750 mg PO Q24H [facility] Lisinopril (Zestril) 5 mg PO DAILY [facility] Last Admin: 10/04/19 08:00 Dose: 5 mg Documented by: Methylprednisolone Sodium Succinate (Solu-Medrol) 60 mg IV Q6HR [facility] Last Admin: 10/04/19 17:28 Dose: 60 mg Documented by: Metoprolol Succinate (Toprol Xl) 37.5 mg PO BID [facility] Last Admin: 10/04/19 20:33 Dose: 37.5 mg Documented by: Miscellaneous Information (Pneumonia Protocol Utilized) 1 each PO ONCE PRN PRN Reason: Per Protocol Miscellaneous Information (Coumadin Per Pharmacy) 1 each MISCELLANE DIRECTED PRN PRN Reason: Per Protocol Spironolactone (Aldactone) 25 mg PO DAILY [facility] Last Admin: 10/04/19 08:00 Dose: 25 mg Documented by: Objective - Vital Signs Vital signs: Vital Signs Temp 97.9 F 10/04/19 11:27 Pulse 112 H 10/04/19 15:34 Resp 24 10/04/19 11:27 BP 101/57 10/04/19 11:27 Pulse Ox 92 L 12/23/19 11:27 Intake & Output 10/03/19 10/04/19 10/04/19 18:59 06:59 18:59 Intake Total 100 140 Balance 100 140 Weight 117.39 kg Intake: IV 40 normal saline @ 10 40 Intake, IV Titration 100 100 Amount Piperacillin-Tazobactam 3 100 100 .375 gm In Sodium Chloride 0.9% 100 ml @ 25 mls/hr IVPB Q8HR [facility] Rx# :[id number] Other: Voiding Method Toilet # Voids 2 - Exam PHYSICAL EXAMINATION: Patient is lying in the bed comfortably, no distress, awake alert and oriented.. HEENT: Normocephalic. Neck is supple. Pupils reactive. Nostrils clear. Oral cavity is moist. Ears reveal no drainage. Neck reveals no JVD, carotid bruits, or thyromegaly. CHEST EXAMINATION: Trachea is central. Symmetrical expansion. Lateral diminished air entry and scattered rhonchi and diffuse wheezing.. CARDIAC: Normal S1, S2 with no gallops. No murmurs ABDOMEN: Soft. Bowel sounds normal. No organomegaly. No abdominal bruits. Extremities: 2+ edema. No clubbing or cyanosis Neurologically awake, alert, oriented x3 with well-coordinated movements. No focal deficits noted Skin: No rash or skin lesions. Psychiatric: Coperative. Nonsuicidal Musculoskeletal: No joint swelling or deformity. Normal range of motion. - Labs CBC & Chem 7: 10/03/19 06:37 10/03/19 06:37 Labs: Abnormal Lab Results - Last 24 Hours (Table) 10/04/19 Range/Units 06:57 PT 26.9 H (9.0-12.0) sec INR 2.8 H (<1.2) Microbiology - Last 24 Hours (Table) 10/02/19 14:28 Blood Culture - Preliminary Blood No Growth after 48 hours 10/03/19 14:30 Gram Stain - Preliminary Sputum Sputum Culture - Preliminary Yuliana albicans Assessment and Plan Assessment: Acute severe COPD exacerbation Chronic hypoxic respiratory failure secondary to COPD on home oxygen 4 L Right lower lobe pneumonia and Sepsis secondary to pneumonia patient was tachycardic and has leukocytosis 17.4 on admission Acute on Chronic CHF with mildly reduced systolic dysfunction. Paroxysmal atrial fibrillation on anticoagulation with Coumadin. Currently in sinus rhythm. Morbid obesity with BMI 36.3 Hypertension Hyperlipidemia Osteoarthritis Previous history of smoking Coumadin monitoring and subtherapeutic INR level Plan: Patient will be continued on IV steroids, DuoNeb's and Pulmicort/Perforomist. Continue with antibiotics Levaquin and Zosyn. Follow culture reports. Continue with IV Lasix 20 mg daily, increased as blood pressure tolerates. Continue with metoprolol, lisinopril, aspirin and statins and spironolactone. Pulmonary was consulted. Follow-up repeat CBC and BMP tomorrow. Further recommendations based on the clinical course. Prognosis is guarded with multiple medical problems and comorbid conditions. Discussed with his and patient at bedside in detail. Time with Patient: Greater than 30
[2019-10-05] MEDS: methylPREDNISolone SOD SUCCI 125 MG/2 ML VIAL IV SCH ×4 (05:17→23:55)
[2019-10-05] MEDS: IPRATROPIUM-ALBUTEROL 3 ML NEB INHALATION PRN (05:27)
[2019-10-05 07:47] LABS: Anisocytosis Slight; Basophils # (A) 0.2 k/uL (0-0.2); Basophils % (A) 1 %; Eosinophils % (A) 0 %; HCT 26.7 % (39.0-53.0); HGB 7.5 gm/dL (13.0-17.5); Hypochromasia Marked; Lymphocytes # (A) 0.5 k/uL (1.0-4.8); Lymphocytes % (A) 3 %; MCH 24.3 pg (25.0-35.0); MCHC 28.1 g/dL (31.0-37.0); MCV 86.2 fL (80.0-100.0); Monocytes % (A) 5 %; Neutrophils # (A) 18.9 k/uL (1.3-7.7); Neutrophils % (A) 91 %; Platelet Count 576 k/uL (150-450); RBC 3.09 m/uL (4.30-5.90); RDW 17.9 % (11.5-15.5); WBC 20.7 k/uL (3.8-10.6)
[2019-10-05 07:48] LABS: INR 2.9 (<1.2); Prothrombin Time 28.4 sec (9.0-12.0)
[2019-10-05 08:10] LABS: Calcium 8.4 mg/dL (8.4-10.2)
[2019-10-05] MEDS: PIPERACILLIN-TAZOBACTAM 3.375 GM in SODIUM CHLORIDE 0.9% 100 ML IVPB SCH ×3 (08:30→23:55)
[2019-10-05] MEDS: FUROSEMIDE 10 MG/ML 2 ML VIAL IV SCH ×2 (08:31→20:37)
[2019-10-05] MEDS: LEVOFLOXACIN 750 MG TAB PO SCH (08:31)
[2019-10-05] MEDS: METOPROLOL SUCCINATE (ER) 25 MG TAB.ER.24H PO SCH ×2 (08:31→20:36)
[2019-10-05] MEDS: SPIRONOLACTONE 25 MG TAB PO SCH (08:32)
[2019-10-05] MEDS: LISINOPRIL 5 MG TAB PO SCH (08:32)
[2019-10-05] MEDS: FORMOTEROL FUMARATE 20 MCG/2 ML NEBU INHALATION SCH ×2 (08:50→21:13)
[2019-10-05] MEDS: IPRATROPIUM-ALBUTEROL 3 ML NEB INHALATION SCH ×4 (08:50→21:13)
[2019-10-05] MEDS: BUDESONIDE 0.5 MG/2 ML NEBU INHALATION SCH ×2 (08:50→21:13)
--- NOTE | 2019-10-05 11:55 | P.PN ---
Subjective Progress Note Date: 10/05/19 Principal diagnosis: acute exacerbation of chronic obstructive pulmonary disease complicated by early right lower lobe pneumonia Louis is a 69-year-old male patient with advanced oxygen-dependent COPD and is maintained on oxygen at 4 L 24 7. He also utilizes a combination of Perforomist and Pulmicort neb last 2 minutes twice a day and more recently I started him onYuperli less treatments once a day. He also does albuterol nebulized treatments up to 4 times a day. He was doing well on rounds few days ago started having increased mucus production and worsening shortness of breath. He tells the that after the addition of the Yuperli for secretions improved. Nevertheless, his condition is worse and for that reason he came in to the hospital. Chest x-ray shows a limited right lower lobe infiltration probably an early pneumonia. His white cell count is at 19.5. He was started on a combination of Zosyn and Levaquin. His sputum sample is being collected. His EF based on the most recent echocardiogram shows improvement and instructed 50- 55%. He has extensive edema in lower extremities. Has obstructive sleep apnea and is maintained on CPAP. His sleep apnea is severe with an AHI of 47 and is maintained on CPAP at a pressure of 14 along with oxygen. On 10/04/2019 patient seen in follow-up on medical surgical floor. Still has significant exertional dyspnea and wheezing, but no acute distress. He 5 L of oxygen with a pulse ox of 92%, he is afebrile, hemodynamically stable, lung sounds reveal diffuse wheezes, occasional cough. He is on a combination of Zosyn and Levaquin for right lower lobe pneumonia, no new labs today other than INR which is at 2.8 on today's labs. Blood and sputum cultures are pending, remains on IV Lasix at 20 mg daily, patient still has quite significant lower extremity edema patient is seen today 10/05/2019 in follow-up on the regular medical floor. He is currently sitting up at the bedside. Awake and alert in no acute distress. His breathing is about the same as compared to yesterday. Still dyspneic on minimal exertion. Not quite back to his baseline. Sputum culture positive for Yuliana only. Blood culture reveals no growth. White count 20.7. Hemoglobin 7.5. Platelet count 576,000. INR 2.9. Sodium 140. Potassium 5.0. Bicarb 40. Creatinine 1.42. He remains on DuoNeb inhalations, Pulmicort and Perforomist inhalations, IV Solu-Medrol. Antibiotics in the form of Zosyn and Levaquin. Remains on IV diuretics. Objective - Vital Signs Vital signs: Vital Signs Temp 98 F 10/05/19 05:00 Pulse 100 10/05/19 09:19 Resp 18 10/05/19 05:00 BP 116/56 10/05/19 05:00 Pulse Ox 98 10/05/19 08:54 Intake & Output 10/04/19 10/05/19 10/05/19 18:59 06:59 18:59 Intake Total 920 240 Output Total 680 Balance 240 240 Weight 117.39 kg 120 kg Intake: Intake, IV Titration 200 Amount Piperacillin-Tazobactam 3 200 .375 gm In Sodium Chloride 0.9% 100 ml @ 25 mls/hr IVPB Q8HR [facility] Rx# :[id number] Oral 720 240 Output: Urine 680 Other: Voiding Method Toilet Toilet # Voids 2 2 - Exam GENERAL EXAM: Alert, pleasant, obese 69-year-old gentleman on 4L of oxygen with a pulse ox of 98%, comfortable in no apparent distress. HEAD: Normocephalic/atraumatic. EYES: Normal reaction of pupils, equal size. Conjunctiva pink, sclera white. NOSE: Clear with pink turbinates. THROAT: No erythema or exudates. NECK: No masses, no JVD, no thyroid enlargement, no adenopathy. CHEST: No chest wall deformity. Symmetrical expansion. LUNGS: Equal air entry with diffuse wheezes, diminished CVS: Regular rate and rhythm, normal S1 and S2, no gallops, no murmurs, no rubs ABDOMEN: Soft, nontender. No hepatosplenomegaly, normal bowel sounds, no guarding or rigidity. EXTREMITIES: No clubbing, 2+ lower extremity edema, no cyanosis, 2+ pulses and upper and lower extremities. MUSCULOSKELETAL: Muscle strength and tone normal. SPINE: No scoliosis or deformity SKIN: No rashes CENTRAL NERVOUS SYSTEM: No focal deficits, tone is normal in all 4 extremities. PSYCHIATRIC: Alert and oriented -3. Appropriate affect. Intact judgment and insight. - Labs CBC & Chem 7: 10/05/19 07:13 10/05/19 07:13 Labs: Abnormal Lab Results - Last 24 Hours (Table) 10/05/19 10/05/19 10/05/19 Range/Units 07:13 07:13 07:13 WBC 20.7 H (3.8-10.6) k/uL RBC 3.09 L (4.30-5.90) m/uL Hgb 7.5 L (13.0-17.5) gm/dL Hct 26.7 L (39.0-53.0) % MCH 24.3 L (25.0-35.0) pg MCHC 28.1 L (31.0-37.0) g/dL RDW 17.9 H (11.5-15.5) % Plt Count 576 H (150-450) k/uL Neutrophils # 18.9 H (1.3-7.7) k/uL Lymphocytes # 0.5 L (1.0-4.8) k/uL PT 28.4 H (9.0-12.0) sec INR 2.9 H (<1.2) Chloride 94 L (98-107) mmol/L Carbon Dioxide 40 H (22-30) mmol/L BUN 38 H (9-20) mg/dL Creatinine 1.42 H (0.66-1.25) mg/dL Glucose 162 H (74-99) mg/dL Microbiology - Last 24 Hours (Table) 10/03/19 14:30 Gram Stain - Final Sputum Sputum Culture - Final Yuliana albicans 10/02/19 14:28 Blood Culture - Preliminary Blood No Growth after 48 hours Assessment and Plan Assessment: #1. Acute exacerbation of chronic obstructive pulmonary disease complicated by early right lower lobe pneumonia #2. Acute on chronic hypoxemic and hypercapnic respiratory failure secondary to acute exacerbation of COPD #3. Obstructive sleep apnea, severe with that AHI score of 47.7 and patient is maintained on CPAP therapy at 14 cm of water #4. Severe COPD with previous FEV1 value of 35% of predicted, with most recent improvement up to 41% post treatment #5. Chronic systolic heart failure with an ejection fraction of 30-35%, with subsequent improvement in his ejection fraction which is currently at 50-55%, increased lower extremity edema #6. Chronic atrial fibrillation on warfarin, today's INR is therapeutic at 2.8 #7. Chronic lower extremity edema, worsened on presentation this admission #8. Obesity Plan: The patient was seen and evaluated by Dr. Rowely. He is improved but still not quite back to his baseline. We'll continue with the current treatment plan. Increase his activity as tolerated. We'll continue to follow make further recommendations based on his clinical status. I, the cosigning physician, performed a history & physical examination of the patient. Lungs sounds with bilateral expiratory wheezing, diminished. Maintaining good O2 saturations in the 90s on 4 L/m per nasal cannula. I discussed the assessment and plan of care with my nurse practitioner, Kaycee Yoo. I attest to the above note as dictated by her.
--- NOTE | 2019-10-05 17:41 | P.PN ---
Subjective Progress Note Date: 10/05/19 Principal diagnosis: acute exacerbation of chronic obstructive pulmonary disease complicated by early right lower lobe pneumonia 10/05/2019 in follow-up on the regular medical floor. He is currently sitting up at the bedside. Awake and alert in no acute distress. His breathing is about the same as compared to yesterday. Still dyspneic on minimal exertion. Not quite back to his baseline. Sputum culture positive for Yuliana only. Blood culture reveals no growth. White count 20.7. Hemoglobin 7.5. Platelet count 576,000. INR 2.9. Sodium 140. Potassium 5.0. Bicarb 40. Creatinine 1.42. He remains on DuoNeb inhalations, Pulmicort and Perforomist inhalations, IV Solu-Medrol. Antibiotics in the form of Zosyn and Levaquin. Remains on IV diuretics. Objective - Vital Signs Vital signs: Vital Signs Temp 97.6 F 10/05/19 12:25 Pulse 96 10/05/19 12:42 Resp 17 10/05/19 12:25 BP 125/64 10/05/19 12:25 Pulse Ox 94 L 10/05/19 12:25 Intake & Output 10/04/19 10/05/19 10/05/19 18:59 06:59 18:59 Intake Total 920 730 Output Total 680 Balance 240 730 Weight 117.39 kg 120 kg Intake: Intake, IV Titration 200 250 Amount Levofloxacin 750Mg-D5w 150 Pmx 750 mg In Dextrose/ Water 1 150ml.bag @ 100 mls/hr IVPB Q24H [facility] Rx#: [id number] Piperacillin-Tazobactam 3 200 100 .375 gm In Sodium Chloride 0.9% 100 ml @ 25 mls/hr IVPB Q8HR [facility] Rx# :[id number] Oral 720 480 Output: Urine 680 Other: Voiding Method Toilet Toilet # Voids 2 2 - Exam Patient is lying in the bed comfortably, no distress, awake alert and oriented.. HEENT: Normocephalic. Neck is supple. Pupils reactive. Nostrils clear. Oral cavity is moist. Ears reveal no drainage. Neck reveals no JVD, carotid bruits, or thyromegaly. CHEST EXAMINATION: Trachea is central. Symmetrical expansion. Lateral diminished air entry and scattered rhonchi and diffuse wheezing.. CARDIAC: Normal S1, S2 with no gallops. No murmurs ABDOMEN: Soft. Bowel sounds normal. No organomegaly. No abdominal bruits. Extremities: 2+ edema. No clubbing or cyanosis Neurologically awake, alert, oriented x3 with well-coordinated movements. No focal deficits noted Skin: No rash or skin lesions. - Labs CBC & Chem 7: 10/05/19 07:13 10/05/19 07:13 Labs: Abnormal Lab Results - Last 24 Hours (Table) 10/05/19 10/05/19 10/05/19 Range/Units 07:13 07:13 07:13 WBC 20.7 H (3.8-10.6) k/uL RBC 3.09 L (4.30-5.90) m/uL Hgb 7.5 L (13.0-17.5) gm/dL Hct 26.7 L (39.0-53.0) % MCH 24.3 L (25.0-35.0) pg MCHC 28.1 L (31.0-37.0) g/dL RDW 17.9 H (11.5-15.5) % Plt Count 576 H (150-450) k/uL Neutrophils # 18.9 H (1.3-7.7) k/uL Lymphocytes # 0.5 L (1.0-4.8) k/uL PT 28.4 H (9.0-12.0) sec INR 2.9 H (<1.2) Chloride 94 L (98-107) mmol/L Carbon Dioxide 40 H (22-30) mmol/L BUN 38 H (9-20) mg/dL Creatinine 1.42 H (0.66-1.25) mg/dL Glucose 162 H (74-99) mg/dL Microbiology - Last 24 Hours (Table) 10/03/19 14:30 Gram Stain - Final Sputum Sputum Culture - Final Yuliana albicans 10/02/19 14:28 Blood Culture - Preliminary Blood No Growth after 48 hours Assessment and Plan Assessment: Acute severe COPD exacerbation Chronic hypoxic respiratory failure secondary to COPD on home oxygen 4 L Right lower lobe pneumonia and Sepsis secondary to pneumonia patient was tachycardic and has leukocytosis 17.4 on admission Acute on Chronic CHF with mildly reduced systolic dysfunction. Paroxysmal atrial fibrillation on anticoagulation with Coumadin. Currently in sinus rhythm. Morbid obesity with BMI 36.3 Hypertension Hyperlipidemia Osteoarthritis Previous history of smoking Coumadin monitoring and subtherapeutic INR level Plan: Patient will be continued on IV steroids, DuoNeb's and Pulmicort/Perforomist. Continue with antibiotics Levaquin and Zosyn. Follow culture reports. Continue with IV Lasix 20 mg daily, increased as blood pressure tolerates. Continue with metoprolol, lisinopril, aspirin and statins and spironolactone. Pulmonary was consulted. Follow-up repeat CBC and BMP tomorrow. Further recommendations based on the clinical course. Prognosis is guarded with multiple medical problems and comorbid conditions. Discussed with his and patient at bedside in detail.
[2019-10-05] MEDS ORDERED: WARFARIN 1 MG TAB PO ONE (18:00)
[2019-10-05] MEDS: ATORVASTATIN 20 MG TAB PO SCH (20:36)
[2019-10-05] MEDS: LATANOPROST 0.005% OPHTH DROPS 2.5 ML BTL BOTH EYES SCH (20:37)
[2019-10-06] MEDS: IPRATROPIUM-ALBUTEROL 3 ML NEB INHALATION PRN ×2 (00:43→23:14)
[2019-10-06] MEDS: methylPREDNISolone SOD SUCCI 125 MG/2 ML VIAL IV SCH ×4 (05:53→23:58)
[2019-10-06 07:45] LABS: INR 2.2 (<1.2); Prothrombin Time 21.1 sec (9.0-12.0)
[2019-10-06] MEDS: METOPROLOL SUCCINATE (ER) 25 MG TAB.ER.24H PO SCH ×2 (08:33→22:07)
[2019-10-06] MEDS: PIPERACILLIN-TAZOBACTAM 3.375 GM in SODIUM CHLORIDE 0.9% 100 ML IVPB SCH ×2 (08:33→18:07)
[2019-10-06] MEDS: SPIRONOLACTONE 25 MG TAB PO SCH (08:35)
[2019-10-06] MEDS: LISINOPRIL 5 MG TAB PO SCH (08:35)
[2019-10-06] MEDS: FUROSEMIDE 10 MG/ML 2 ML VIAL IV SCH ×2 (08:36→22:08)
[2019-10-06] MEDS: IPRATROPIUM-ALBUTEROL 3 ML NEB INHALATION SCH ×4 (08:49→18:57)
[2019-10-06] MEDS: FORMOTEROL FUMARATE 20 MCG/2 ML NEBU INHALATION SCH ×2 (08:49→18:57)
[2019-10-06] MEDS: BUDESONIDE 0.5 MG/2 ML NEBU INHALATION SCH ×2 (08:49→18:57)
--- NOTE | 2019-10-06 11:27 | P.PN ---
Subjective Progress Note Date: 10/06/19 Principal diagnosis: acute exacerbation of chronic obstructive pulmonary disease complicated by early right lower lobe pneumonia Louis is a 69-year-old male patient with advanced oxygen-dependent COPD and is maintained on oxygen at 4 L 24 7. He also utilizes a combination of Perforomist and Pulmicort neb last 2 minutes twice a day and more recently I started him onYuperli less treatments once a day. He also does albuterol nebulized treatments up to 4 times a day. He was doing well on rounds few days ago started having increased mucus production and worsening shortness of breath. He tells the that after the addition of the Yuperli for secretions improved. Nevertheless, his condition is worse and for that reason he came in to the hospital. Chest x-ray shows a limited right lower lobe infiltration probably an early pneumonia. His white cell count is at 19.5. He was started on a combination of Zosyn and Levaquin. His sputum sample is being collected. His EF based on the most recent echocardiogram shows improvement and instructed 50- 55%. He has extensive edema in lower extremities. Has obstructive sleep apnea and is maintained on CPAP. His sleep apnea is severe with an AHI of 47 and is maintained on CPAP at a pressure of 14 along with oxygen. On 10/04/2019 patient seen in follow-up on medical surgical floor. Still has significant exertional dyspnea and wheezing, but no acute distress. He 5 L of oxygen with a pulse ox of 92%, he is afebrile, hemodynamically stable, lung sounds reveal diffuse wheezes, occasional cough. He is on a combination of Zosyn and Levaquin for right lower lobe pneumonia, no new labs today other than INR which is at 2.8 on today's labs. Blood and sputum cultures are pending, remains on IV Lasix at 20 mg daily, patient still has quite significant lower extremity edema patient is seen today 10/05/2019 in follow-up on the regular medical floor. He is currently sitting up at the bedside. Awake and alert in no acute distress. His breathing is about the same as compared to yesterday. Still dyspneic on minimal exertion. Not quite back to his baseline. Sputum culture positive for Yuliana only. Blood culture reveals no growth. White count 20.7. Hemoglobin 7.5. Platelet count 576,000. INR 2.9. Sodium 140. Potassium 5.0. Bicarb 40. Creatinine 1.42. He remains on DuoNeb inhalations, Pulmicort and Perforomist inhalations, IV Solu-Medrol. Antibiotics in the form of Zosyn and Levaquin. Remains on IV diuretics. The patient is seen today 10/06/2019 in follow-up on the regular medical floor. Resting comfortably in bed. No worsening shortness of breath cough or congestion. Stating still not quite back to his baseline. he is maintaining O2 saturations in the low 90s on 4 L/m per nasal cannula. He is afebrile. Hemodynamically stable. Sputum culture positive for Yuliana only. Blood culture reveals no growth. INR 2.2. Objective - Vital Signs Vital signs: Vital Signs Temp 97.2 F L 10/06/19 04:57 Pulse 93 10/06/19 09:10 Resp 18 10/06/19 08:00 BP 111/58 10/06/19 04:57 Pulse Ox 92 L 10/06/19 04:57 Intake & Output 10/05/19 10/06/19 10/06/19 18:59 06:59 18:59 Intake Total 730 480 Balance 730 480 Weight 118 kg Intake: Intake, IV Titration 250 Amount Levofloxacin 750Mg-D5w 150 Pmx 750 mg In Dextrose/ Water 1 150ml.bag @ 100 mls/hr IVPB Q24H [facility] Rx#: [id number] Piperacillin-Tazobactam 3 100 .375 gm In Sodium Chloride 0.9% 100 ml @ 25 mls/hr IVPB Q8HR [facility] Rx# :[id number] Oral 480 480 Other: Voiding Method Toilet Toilet Toilet # Voids 1 # Bowel Movements 1 - Exam GENERAL EXAM: Alert, pleasant, obese 69-year-old gentleman on 4L of oxygen with a pulse ox of 92%, comfortable in no apparent distress. HEAD: Normocephalic/atraumatic. EYES: Normal reaction of pupils, equal size. Conjunctiva pink, sclera white. NOSE: Clear with pink turbinates. THROAT: No erythema or exudates. NECK: No masses, no JVD, no thyroid enlargement, no adenopathy. CHEST: No chest wall deformity. Symmetrical expansion. LUNGS: Equal air entry with diffuse wheezes, diminished CVS: Regular rate and rhythm, normal S1 and S2, no gallops, no murmurs, no rubs ABDOMEN: Soft, nontender. No hepatosplenomegaly, normal bowel sounds, no guarding or rigidity. EXTREMITIES: No clubbing, 2+ lower extremity edema, no cyanosis, 2+ pulses and upper and lower extremities. MUSCULOSKELETAL: Muscle strength and tone normal. SPINE: No scoliosis or deformity SKIN: No rashes CENTRAL NERVOUS SYSTEM: No focal deficits, tone is normal in all 4 extremities. PSYCHIATRIC: Alert and oriented -3. Appropriate affect. Intact judgment and insight. - Labs CBC & Chem 7: 10/05/19 07:13 10/05/19 07:13 Labs: Abnormal Lab Results - Last 24 Hours (Table) 10/06/19 Range/Units 06:28 PT 21.1 H (9.0-12.0) sec INR 2.2 H (<1.2) Microbiology - Last 24 Hours (Table) 10/02/19 14:28 Blood Culture - Preliminary Blood No Growth after 72 hours 10/03/19 14:30 Gram Stain - Final Sputum Sputum Culture - Final Yuliana albicans Assessment and Plan Assessment: #1. Acute exacerbation of chronic obstructive pulmonary disease complicated by early right lower lobe pneumonia #2. Acute on chronic hypoxemic and hypercapnic respiratory failure secondary to acute exacerbation of COPD #3. Obstructive sleep apnea, severe with that AHI score of 47.7 and patient is maintained on CPAP therapy at 14 cm of water #4. Severe COPD with previous FEV1 value of 35% of predicted, with most recent improvement up to 41% post treatment #5. Chronic systolic heart failure with an ejection fraction of 30-35%, with s ubsequent improvement in his ejection fraction which is currently at 50-55%, increased lower extremity edema #6. Chronic atrial fibrillation on warfarin, today's INR is therapeutic at 2.2 #7. Chronic lower extremity edema, worsened on presentation this admission #8. Obesity Plan: The patient was seen and evaluated by Dr. Rowley. He is improved but still not quite back to his baseline. We'll continue with the current treatment plan. Increase his activity as tolerated. Repeat chest x-ray in the a.m. We'll continue to follow and make further recommendations based on his clinical status . I, the cosigning physician, performed a [facility] sounds with bilateral expiratory wheezing, diminished. Maintaining good O2 saturations in the 90s on 4 L/m per nasal cannula. I discussed the assessment and plan of care with my nurse practitioner, Kaycee Yoo. I attest to the above note as dictated by her.
[2019-10-06] MEDS: LEVOFLOXACIN 750 MG TAB PO SCH (12:34)
[2019-10-06] MEDS ORDERED: WARFARIN 5 MG TAB PO ONE (18:00)
[2019-10-06] MEDS: ATORVASTATIN 20 MG TAB PO SCH (22:07)
[2019-10-06] MEDS: LATANOPROST 0.005% OPHTH DROPS 2.5 ML BTL BOTH EYES SCH (22:08)
[2019-10-07] MEDS: PIPERACILLIN-TAZOBACTAM 3.375 GM in SODIUM CHLORIDE 0.9% 100 ML IVPB SCH ×4 (00:27→23:21)
[2019-10-07] MEDS: methylPREDNISolone SOD SUCCI 125 MG/2 ML VIAL IV SCH ×3 (06:01→23:20)
[2019-10-07] MEDS: IPRATROPIUM-ALBUTEROL 3 ML NEB INHALATION SCH ×4 (07:41→20:53)
[2019-10-07] MEDS: BUDESONIDE 0.5 MG/2 ML NEBU INHALATION SCH ×2 (07:41→20:55)
[2019-10-07] MEDS: FORMOTEROL FUMARATE 20 MCG/2 ML NEBU INHALATION SCH ×2 (07:41→20:54)
[2019-10-07] MEDS: FUROSEMIDE 10 MG/ML 2 ML VIAL IV SCH (08:39)
[2019-10-07] MEDS: METOPROLOL SUCCINATE (ER) 25 MG TAB.ER.24H PO SCH ×2 (08:39→21:30)
[2019-10-07] MEDS: SPIRONOLACTONE 25 MG TAB PO SCH (08:40)
[2019-10-07] MEDS: LEVOFLOXACIN 750 MG TAB PO SCH (08:43)
[2019-10-07] MEDS: LISINOPRIL 5 MG TAB PO SCH (08:43)
[2019-10-07 09:31] LABS: INR 1.6 (<1.2); Prothrombin Time 15.6 sec (9.0-12.0)
--- NOTE | 2019-10-07 10:41 | P.PN ---
Subjective Progress Note Date: 10/07/19 Principal diagnosis: acute exacerbation of chronic obstructive pulmonary disease complicated by early right lower lobe pneumonia Louis is a 69-year-old male patient with advanced oxygen-dependent COPD and is maintained on oxygen at 4 L 24 7. He also utilizes a combination of Perforomist and Pulmicort neb last 2 minutes twice a day and more recently I started him onYuperli less treatments once a day. He also does albuterol nebulized treatments up to 4 times a day. He was doing well on rounds few days ago started having increased mucus production and worsening shortness of breath. He tells the that after the addition of the Yuperli for secretions improved. Nevertheless, his condition is worse and for that reason he came in to the hospital. Chest x-ray shows a limited right lower lobe infiltration probably an early pneumonia. His white cell count is at 19.5. He was started on a combination of Zosyn and Levaquin. His sputum sample is being collected. His EF based on the most recent echocardiogram shows improvement and instructed 50- 55%. He has extensive edema in lower extremities. Has obstructive sleep apnea and is maintained on CPAP. His sleep apnea is severe with an AHI of 47 and is maintained on CPAP at a pressure of 14 along with oxygen. On 10/04/2019 patient seen in follow-up on medical surgical floor. Still has significant exertional dyspnea and wheezing, but no acute distress. He 5 L of oxygen with a pulse ox of 92%, he is afebrile, hemodynamically stable, lung sounds reveal diffuse wheezes, occasional cough. He is on a combination of Zosyn and Levaquin for right lower lobe pneumonia, no new labs today other than INR which is at 2.8 on today's labs. Blood and sputum cultures are pending, remains on IV Lasix at 20 mg daily, patient still has quite significant lower extremity edema patient is seen today 10/05/2019 in follow-up on the regular medical floor. He is currently sitting up at the bedside. Awake and alert in no acute distress. His breathing is about the same as compared to yesterday. Still dyspneic on minimal exertion. Not quite back to his baseline. Sputum culture positive for Yuliana only. Blood culture reveals no growth. White count 20.7. Hemoglobin 7.5. Platelet count 576,000. INR 2.9. Sodium 140. Potassium 5.0. Bicarb 40. Creatinine 1.42. He remains on DuoNeb inhalations, Pulmicort and Perforomist inhalations, IV Solu-Medrol. Antibiotics in the form of Zosyn and Levaquin. Remains on IV diuretics. The patient is seen today 10/06/2019 in follow-up on the regular medical floor. Resting comfortably in bed. No worsening shortness of breath cough or congestion. Stating still not quite back to his baseline. he is maintaining O2 saturations in the low 90s on 4 L/m per nasal cannula. He is afebrile. Hemodynamically stable. Sputum culture positive for Yuliana only. Blood culture reveals no growth. INR 2.2. The patient is seen today 10/07/2019 in follow-up on the regular medical floor. Continues to rest comfortably in bed. He does ambulate to the bathroom and back and states he still short of breath. BMI 36. Maintaining O2 saturations in the 90s on 4 L/m per nasal cannula. He remains afebrile. He has been continued on IV Solu-Medrol, DuoNeb inhalations, Pulmicort and Perforomist inhalations, Zosyn and Levaquin, IV diuretics. Objective - Vital Signs Vital signs: Vital Signs Temp 97.5 F L 10/07/19 05:00 Pulse 100 10/07/19 08:09 Resp 22 10/07/19 05:00 BP 133/64 10/07/19 05:00 Pulse Ox 92 L 10/07/19 07:44 Intake & Output 10/06/19 10/07/19 10/07/19 18:59 06:59 18:59 Intake Total 100 720 Output Total 680 Balance -580 720 Weight 117.5 kg Intake: IV 120 normal saline @ 10 120 Intake, IV Titration 100 100 Amount Piperacillin-Tazobactam 3 100 100 .375 gm In Sodium Chloride 0.9% 100 ml @ 25 mls/hr IVPB Q8HR [facility] Rx# :[id number] Oral 500 Output: Urine 680 Other: Voiding Method Toilet Toilet Urinal # Voids 1 6 # Bowel Movements 1 - Exam GENERAL EXAM: Alert, obese 69-year-old gentleman on 4L of oxygen with a pulse ox of 92%, comfortable in no apparent distress. HEAD: Normocephalic/atraumatic. EYES: Normal reaction of pupils, equal size. Conjunctiva pink, sclera white. NOSE: Clear with pink turbinates. THROAT: No erythema or exudates. NECK: No masses, no JVD, no thyroid enlargement, no adenopathy. CHEST: No chest wall deformity. Symmetrical expansion. LUNGS: Equal air entry with end expiratory wheeze wheezes, diminished CVS: Regular rate and rhythm, normal S1 and S2, no gallops, no murmurs, no rubs ABDOMEN: Soft, nontender. No hepatosplenomegaly, normal bowel sounds, no guarding or rigidity. EXTREMITIES: No clubbing, 2+ lower extremity edema, no cyanosis, 2+ pulses and upper and lower extremities. MUSCULOSKELETAL: Muscle strength and tone normal. SPINE: No scoliosis or deformity SKIN: No rashes CENTRAL NERVOUS SYSTEM: No focal deficits, tone is normal in all 4 extremities. PSYCHIATRIC: Alert and oriented -3. Appropriate affect. Intact judgment and insight. - Labs CBC & Chem 7: 10/05/19 07:13 10/05/19 07:13 Labs: Abnormal Lab Results - Last 24 Hours (Table) 10/07/19 Range/Units 08:04 PT 15.6 H (9.0-12.0) sec INR 1.6 H (<1.2) Microbiology - Last 24 Hours (Table) 10/02/19 14:28 Blood Culture - Preliminary Blood No Growth after 96 hours Assessment and Plan Assessment: #1. Acute exacerbation of chronic obstructive pulmonary disease complicated by early right lower lobe pneumonia #2. Acute on chronic hypoxemic and hypercapnic respiratory failure secondary to acute exacerbation of COPD #3. Obstructive sleep apnea, severe with that AHI score of 47.7 and patient is maintained on CPAP therapy at 14 cm of water #4. Severe COPD with previous FEV1 value of 35% of predicted, with most recent improvement up to 41% post treatment #5. Chronic systolic heart failure with an ejection fraction of 30-35%, with subsequent improvement in his ejection fraction which is currently at 50-55%, increased lower extremity edema #6. Chronic atrial fibrillation on warfarin, today's INR is subtherapeutic at 1.6 #7. Chronic lower extremity edema, worsened on presentation this admission #8. Obesity Plan: The patient was seen and evaluated by Dr. Rowley. Follow-up chest x-ray pending. We will discontinue the IV Lasix and convert him back to oral. Converted to oral prednisone. Increase his activity as tolerated. Home once cleared medically. I, the cosigning physician, performed a history & physical examination of the patient. Lungs sounds with bilateral expiratory wheezing, diminished. Maintaining good O2 saturations in the 90s on 4 L/m per nasal cannula. I discussed the assessment and plan of care with my nurse practitioner, Kaycee Yoo. I attest to the above note as dictated by her.
--- NOTE | 2019-10-07 11:11 | XR ---
EXAMINATION TYPE: XR chest 1V portable DATE OF EXAM: 10/07/2019 COMPARISON: 10/03/2019 HISTORY: Shortness of breath TECHNIQUE: Single frontal view of the chest is obtained. FINDINGS: No overt failure. Subsegmental changes at the lung bases. Heart size stable. No pneumothor ax. IMPRESSION: Basilar atelectasis versus infiltrate correlate clinically. No overt failure.
--- NOTE | 2019-10-07 16:25 | P.PN ---
Subjective Progress Note Date: 10/06/19 Principal diagnosis: acute exacerbation of chronic obstructive pulmonary disease complicated by early right lower lobe pneumonia 10/05/2019 in follow-up on the regular medical floor. He is currently sitting up at the bedside. Awake and alert in no acute distress. His breathing is about the same as compared to yesterday. Still dyspneic on minimal exertion. Not quite back to his baseline. Sputum culture positive for Yuliana only. Blood culture reveals no growth. White count 20.7. Hemoglobin 7.5. Platelet count 576,000. INR 2.9. Sodium 140. Potassium 5.0. Bicarb 40. Creatinine 1.42. He remains on DuoNeb inhalations, Pulmicort and Perforomist inhalations, IV Solu-Medrol. Antibiotics in the form of Zosyn and Levaquin. Remains on IV diuretics. 10/06/2019 Patient is seen and evaluated in follow-up on the regular medical floor. Rest ing comfortably in bed. No worsening shortness of breath cough or congestion. Stating still not quite back to his baseline. he is maintaining O2 saturations in the low 90s on 4 L/m per nasal cannula. He is afebrile. Hemodynamically stable. Sputum culture positive for Yuliana only. Blood culture reveals no growth. INR 2.2. Objective - Vital Signs Vital signs: Vital Signs Temp 98.4 F 10/06/19 11:11 Pulse 90 10/06/19 11:57 Resp 18 10/06/19 11:11 BP 107/57 10/06/19 11:11 Pulse Ox 92 L 10/06/19 11:11 Intake & Output 10/05/19 10/06/19 10/06/19 18:59 06:59 18:59 Intake Total 730 480 Balance 730 480 Weight 118 kg Intake: Intake, IV Titration 250 Amount Levofloxacin 750Mg-D5w 150 Pmx 750 mg In Dextrose/ Water 1 150ml.bag @ 100 mls/hr IVPB Q24H [facility] Rx#: [id number] Piperacillin-Tazobactam 3 100 .375 gm In Sodium Chloride 0.9% 100 ml @ 25 mls/hr IVPB Q8HR [facility] Rx# :[id number] Oral 480 480 Other: Voiding Method Toilet Toilet Toilet # Voids 1 # Bowel Movements 1 - Exam Patient is lying in the bed comfortably, no distress, awake alert and oriented.. HEENT: Normocephalic. Neck is supple. Pupils reactive. Nostrils clear. Oral cavi ty is moist. Ears reveal no drainage. Neck reveals no JVD, carotid bruits, or thyromegaly. CHEST EXAMINATION: Trachea is central. Symmetrical expansion. Lateral diminished air entry and scattered rhonchi and diffuse wheezing.. CARDIAC: Normal S1, S2 with no gallops. No murmurs ABDOMEN: Soft. Bowel sounds normal. No organomegaly. No abdominal bruits. Extremities: 2+ edema. No clubbing or cyanosis Neurologically awake, alert, oriented x3 with well-coordinated movements. No focal deficits noted Skin: No rash or skin lesions. - Labs CBC & Chem 7: 10/05/19 07:13 10/05/19 07:13 Labs: Abnormal Lab Results - Last 24 Hours (Table) 10/06/19 Range/Units 06:28 PT 21.1 H (9.0-12.0) sec INR 2.2 H (<1.2) Microbiology - Last 24 Hours (Table) 10/02/19 14:28 Blood Culture - Preliminary Blood No Growth after 72 hours 10/03/19 14:30 Gram Stain - Final Sputum Sputum Culture - Final Yuliana albicans Assessment and Plan Assessment: Acute severe COPD exacerbation Chronic hypoxic respiratory failure secondary to COPD on home oxygen 4 L Right lower lobe pneumonia and Sepsis secondary to pneumonia patient was tachycardic and has leukocytosis 17.4 on admission Acute on Chronic CHF with mildly reduced systolic dysfunction. Paroxysmal atrial fibrillation on anticoagulation with Coumadin. Currently in sinus rhythm. Morbid obesity with BMI 36.3 Hypertension Hyperlipidemia Osteoarthritis Previous history of smoking Coumadin monitoring and subtherapeutic INR level Plan: Patient will be continued on IV steroids, DuoNeb's and Pulmicort/Perforomist. Continue with antibiotics Levaquin and Zosyn. Follow culture reports. Continue with IV Lasix 20 mg daily, increased as blood pressure tolerates. Continue with metoprolol, lisinopril, aspirin and statins and spironolactone. Pulmonary was consulted. Follow-up repeat CBC and BMP tomorrow. Further recommendations based on the clinical course. Prognosis is guarded with multiple medical problems and comorbid conditions. Discussed with his and patient at bedside in detail. Time with Patient: Greater than 30
[2019-10-07] MEDS: FUROSEMIDE 20 MG TAB PO SCH (17:37)
[2019-10-07] MEDS ORDERED: WARFARIN 5 MG TAB PO ONE (18:00)
--- NOTE | 2019-10-07 18:56 | P.PN ---
Subjective Progress Note Date: 10/07/19 Principal diagnosis: acute exacerbation of chronic obstructive pulmonary disease complicated by early right lower lobe pneumonia 10/05/2019 in follow-up on the regular medical floor. He is currently sitting up at the bedside. Awake and alert in no acute distress. His breathing is about the same as compared to yesterday. Still dyspneic on minimal exertion. Not quite back to his baseline. Sputum culture positive for Yuliana only. Blood culture reveals no growth. White count 20.7. Hemoglobin 7.5. Platelet count 576,000. INR 2.9. Sodium 140. Potassium 5.0. Bicarb 40. Creatinine 1.42. He remains on DuoNeb inhalations, Pulmicort and Perforomist inhalations, IV Solu-Medrol. Antibiotics in the form of Zosyn and Levaquin. Remains on IV diuretics. 10/06/2019 Patient is seen and evaluated in follow-up on the regular medical floor. Rest ing comfortably in bed. No worsening shortness of breath cough or congestion. Stating still not quite back to his baseline. he is maintaining O2 saturations in the low 90s on 4 L/m per nasal cannula. He is afebrile. Hemodynamically stable. Sputum culture positive for Yuliana only. Blood culture reveals no growth. INR 2.2. 10/07/2019 Patient is seen and evaluated in follow-up on the regular medical floor. Continues to rest comfortably in bed. He does ambulate to the bathroom and back and states he still short of breath. BMI 36. Maintaining O2 saturations in the 90s on 4 L/m per nasal cannula. He remains afebrile. He has been continued on IV Solu-Medrol, DuoNeb inhalations, Pulmicort and Perforomist inhalations, Zosyn and Levaquin, IV diuretics. Pulmonary service is recommending to switch to oral Lasix and prednisone; plan is to increase activity and discharge home if remains stable Objective - Vital Signs Vital signs: Vital Signs Temp 97.9 F 10/07/19 11:25 Pulse 100 10/07/19 11:31 Resp 18 10/07/19 11:25 BP 100/58 10/07/19 11:25 Pulse Ox 98 10/07/19 11:25 Intake & Output 12/25/19 12/26/19 12/26/19 18:59 06:59 18:59 Intake Total 100 720 Output Total 680 Balance -580 720 Weight 117.5 kg Intake: IV 120 normal saline @ 10 120 Intake, IV Titration 100 100 Amount Piperacillin-Tazobactam 3 100 100 .375 gm In Sodium Chloride 0.9% 100 ml @ 25 mls/hr IVPB Q8HR [facility] Rx# :[id number] Oral 500 Output: Urine 680 Other: Voiding Method Toilet Toilet Toilet Urinal Urinal # Voids 1 6 # Bowel Movements 1 - Exam Patient is lying in the bed comfortably, no distress, awake alert and oriented.. HEENT: Normocephalic. Neck is supple. Pupils reactive. Nostrils clear. Oral cavity is moist. Ears reveal no drainage. Neck reveals no JVD, carotid bruits, or thyromegaly. CHEST EXAMINATION: Trachea is central. Symmetrical expansion. Lateral diminished air entry and scattered rhonchi and diffuse wheezing.. CARDIAC: Normal S1, S2 with no gallops. No murmurs ABDOMEN: Soft. Bowel sounds normal. No organomegaly. No abdominal bruits. Extremities: 2+ edema. No clubbing or cyanosis Neurologically awake, alert, oriented x3 with well-coordinated movements. No focal deficits noted Skin: No rash or skin lesions. - Labs CBC & Chem 7: 10/05/19 07:13 10/05/19 07:13 Labs: Abnormal Lab Results - Last 24 Hours (Table) 10/07/19 Range/Units 08:04 PT 15.6 H (9.0-12.0) sec INR 1.6 H (<1.2) Microbiology - Last 24 Hours (Table) 10/02/19 14:28 Blood Culture - Preliminary Blood No Growth after 96 hours Assessment and Plan Assessment: Acute severe COPD exacerbation Chronic hypoxic respiratory failure secondary to COPD on home oxygen 4 L Right lower lobe pneumonia and Sepsis secondary to pneumonia patient was tachycardic and has leukocytosis 17.4 on admission Acute on Chronic CHF with mildly reduced systolic dysfunction. Paroxysmal atrial fibrillation on anticoagulation with Coumadin. Currently in sinus rhythm. Morbid obesity with BMI 36.3 Hypertension Hyperlipidemia Osteoarthritis Previous history of smoking Coumadin monitoring and subtherapeutic INR level Plan: Patient will be continued on IV steroids, DuoNeb's and Pulmicort/Perforomist. Continue with antibiotics Levaquin and Zosyn. Follow culture reports. Continue with IV Lasix 20 mg daily, increased as blood pressure tolerates. Continue with metoprolol, lisinopril, aspirin and statins and spironolactone. Pulmonary was consulted. Follow-up repeat CBC and BMP tomorrow. Further recommendations based on the clinical course. Prognosis is guarded with multiple medical problems and comorbid conditions. Discussed with his and patient at bedside in detail.
[2019-10-07] MEDS: LATANOPROST 0.005% OPHTH DROPS 2.5 ML BTL BOTH EYES SCH (21:31)
[2019-10-07] MEDS: ATORVASTATIN 20 MG TAB PO SCH (21:31)
[2019-10-08] MEDS: IPRATROPIUM-ALBUTEROL 3 ML NEB INHALATION PRN (00:26)
[2019-10-08 04:33] VITALS: RESP 20
[2019-10-08] MEDS: methylPREDNISolone SOD SUCCI 125 MG/2 ML VIAL IV SCH (05:42)
[2019-10-08 08:53] LABS: Anisocytosis Slight; Basophils % (A) 0 %; Eosinophils % (A) 0 %; HCT 27.8 % (39.0-53.0); HGB 7.8 gm/dL (13.0-17.5); Hypochromasia Marked; Lymphocytes # (A) 0.6 k/uL (1.0-4.8); Lymphocytes % (A) 3 %; MCHC 28.3 g/dL (31.0-37.0); MCV 88.4 fL (80.0-100.0); Mean Platelet Volume 6.7; Monocytes # (A) 0.5 k/uL (0-1.0); Monocytes % (A) 3 %; Neutrophils # (A) 18.6 k/uL (1.3-7.7); Neutrophils % (A) 93 %; Platelet Count 596 k/uL (150-450); RBC 3.14 m/uL (4.30-5.90); WBC 19.9 k/uL (3.8-10.6)
[2019-10-08] MEDS ORDERED: predniSONE 20 MG TAB PO SCH (09:00)
[2019-10-08 09:03] LABS: INR 1.5 (<1.2); Prothrombin Time 15.5 sec (9.0-12.0)
[2019-10-08 09:09] LABS: Calcium 8.3 mg/dL (8.4-10.2); Potassium 5.3 mmol/L (3.5-5.1)
[2019-10-08 09:21] VITALS: BMI 36.3
--- NOTE | 2019-10-08 09:38 | P.PN ---
Subjective Progress Note Date: 10/08/19 Principal diagnosis: acute exacerbation of chronic obstructive pulmonary disease complicated by early right lower lobe pneumonia Louis is a 69-year-old male patient with advanced oxygen-dependent COPD and is maintained on oxygen at 4 L 24 7. He also utilizes a combination of Perforomist and Pulmicort neb last 2 minutes twice a day and more recently I started him onYuperli less treatments once a day. He also does albuterol nebulized treatments up to 4 times a day. He was doing well on rounds few days ago started having increased mucus production and worsening shortness of breath. He tells the that after the addition of the Yuperli for secretions improved. Nevertheless, his condition is worse and for that reason he came in to the hospital. Chest x-ray shows a limited right lower lobe infiltration probably an early pneumonia. His white cell count is at 19.5. He was started on a combination of Zosyn and Levaquin. His sputum sample is being collected. His EF based on the most recent echocardiogram shows improvement and instructed 50- 55%. He has extensive edema in lower extremities. Has obstructive sleep apnea and is maintained on CPAP. His sleep apnea is severe with an AHI of 47 and is maintained on CPAP at a pressure of 14 along with oxygen. On 10/04/2019 patient seen in follow-up on medical surgical floor. Still has significant exertional dyspnea and wheezing, but no acute distress. He 5 L of oxygen with a pulse ox of 92%, he is afebrile, hemodynamically stable, lung sounds reveal diffuse wheezes, occasional cough. He is on a combination of Zosyn and Levaquin for right lower lobe pneumonia, no new labs today other than INR which is at 2.8 on today's labs. Blood and sputum cultures are pending, remains on IV Lasix at 20 mg daily, patient still has quite significant lower extremity edema patient is seen today 10/05/2019 in follow-up on the regular medical floor. He is currently sitting up at the bedside. Awake and alert in no acute distress. His breathing is about the same as compared to yesterday. Still dyspneic on minimal exertion. Not quite back to his baseline. Sputum culture positive for Yuliana only. Blood culture reveals no growth. White count 20.7. Hemoglobin 7.5. Platelet count 576,000. INR 2.9. Sodium 140. Potassium 5.0. Bicarb 40. Creatinine 1.42. He remains on DuoNeb inhalations, Pulmicort and Perforomist inhalations, IV Solu-Medrol. Antibiotics in the form of Zosyn and Levaquin. Remains on IV diuretics. The patient is seen today 10/06/2019 in follow-up on the regular medical floor. Resting comfortably in bed. No worsening shortness of breath cough or congestion. Stating still not quite back to his baseline. he is maintaining O2 saturations in the low 90s on 4 L/m per nasal cannula. He is afebrile. Hemodynamically stable. Sputum culture positive for Yuliana only. Blood culture reveals no growth. INR 2.2. The patient is seen today 10/07/2019 in follow-up on the regular medical floor. Continues to rest comfortably in bed. He does ambulate to the bathroom and back and states he still short of breath. BMI 36. Maintaining O2 saturations in the 90s on 4 L/m per nasal cannula. He remains afebrile. He has been continued on IV Solu-Medrol, DuoNeb inhalations, Pulmicort and Perforomist inhalations, Zosyn and Levaquin, IV diuretics. The patient is seen today 10/08/2018 in follow-up on the regular medical floor. He is awake and alert in no acute distress. His breathing is back to his baseline as far as he is concerned. He states he does not do much at home just from not ambulates within his main level of his house in the chair to the bed to the bathroom. He sleeps mostly up in a chair. Sputum culture was positive for Yuliana. There is some oral candidiasis noted as well. Diflucan has been initiated. White count 19.9. Hemoglobin 7.8. Bicarb 43. Creatinine 1.46. INR 1.5. Warfarin dosing per pharmacy. He remains on Zosyn along with DuoNeb inhalations, Pulmicort and Perforomist inhalations, diuretics. Objective - Vital Signs Vital signs: Vital Signs Temp 98 F 10/08/19 04:33 Pulse 52 L 10/08/19 04:33 Resp 20 10/08/19 04:33 BP 104/63 10/08/19 04:33 Pulse Ox 98 10/08/19 04:33 Intake & Output 1210/08/19 10/08/19 18:59 06:59 18:59 Intake Total 780 1500 Output Total 680 Balance 100 1500 Weight 118 kg 118 kg Intake: IV 80 normal saline @ 10 80 Intake, IV Titration 200 100 Amount Piperacillin-Tazobactam 3 200 100 .375 gm In Sodium Chloride 0.9% 100 ml @ 25 mls/hr IVPB Q8HR WADE Rx# :[id number] Oral 500 1400 Output: Urine 680 Other: Voiding Method Toilet Toilet Urinal Urinal # Voids 6 3 - Exam GENERAL EXAM: Alert, obese 69-year-old gentleman on 4L of oxygen with a pulse ox of 98%, comfortable in no apparent distress. HEAD: Normocephalic/atraumatic. EYES: Normal reaction of pupils, equal size. Conjunctiva pink, sclera white. NOSE: Clear with pink turbinates. THROAT: Crowding the posterior pharynx No erythema or exudates. NECK: No masses, no JVD, no thyroid enlargement, no adenopathy. CHEST: No chest wall deformity. Symmetrical expansion. LUNGS: Equal air entry with end expiratory wheeze wheezes, diminished CVS: Regular rate and rhythm, normal S1 and S2, no gallops, no murmurs, no rubs ABDOMEN: Soft, nontender. No hepatosplenomegaly, normal bowel sounds, no guarding or rigidity. EXTREMITIES: No clubbing, 2+ lower extremity edema, no cyanosis, 2+ pulses and upper and lower extremities. MUSCULOSKELETAL: Muscle strength and tone normal. SPINE: No scoliosis or deformity SKIN: No rashes CENTRAL NERVOUS SYSTEM: No focal deficits, tone is normal in all 4 extremities. PSYCHIATRIC: Alert and oriented -3. Appropriate affect. Intact judgment and insight. - Labs CBC & Chem 7: 10/08/19 08:15 10/08/19 08:15 Labs: Abnormal Lab Results - Last 24 Hours (Table) 10/08/19 10/08/19 10/08/19 Range/Units 08:15 08:15 08:15 WBC 19.9 H (3.8-10.6) k/uL RBC 3.14 L (4.30-5.90) m/uL Hgb 7.8 L (13.0-17.5) gm/dL Hct 27.8 L (39.0-53.0) % MCHC 28.3 L (31.0-37.0) g/dL RDW 17.0 H (11.5-15.5) % Plt Count 596 H (150-450) k/uL Neutrophils # 18.6 H (1.3-7.7) k/uL Lymphocytes # 0.6 L (1.0-4.8) k/uL PT 15.5 H (9.0-12.0) sec INR 1.5 H (<1.2) Potassium 5.3 H (3.5-5.1) mmol/L Chloride 91 L (98-107) mmol/L Carbon Dioxide 43 H* (22-30) mmol/L BUN 42 H (9-20) mg/dL Creatinine 1.46 H (0.66-1.25) mg/dL Glucose 217 H (74-99) mg/dL Calcium 8.3 L (8.4-10.2) mg/dL Microbiology - Last 24 Hours (Table) 10/02/19 14:28 Blood Culture - Preliminary Blood No Growth after 120 hours Assessment and Plan Assessment: #1. Acute exacerbation of chronic obstructive pulmonary disease complicated by early right lower lobe pneumonia follow-up chest x-ray reveals basilar atelectasis. No overt failure. #2. Acute on chronic hypoxemic and hypercapnic respiratory failure secondary to acute exacerbation of COPD #3. Obstructive sleep apnea, severe with that AHI score of 47.7 and patient is maintained on CPAP therapy at 14 cm of water #4. Severe COPD with previous FEV1 value of 35% of predicted, with most recent improvement up to 41% post treatment #5. Chronic systolic heart failure with an ejection fraction of 30-35%, with subsequent improvement in his ejection fraction which is currently at 50-55%, increased lower extremity edema #6. Chronic atrial fibrillation on warfarin, today's INR is subtherapeutic at 1.6 #7. Chronic lower extremity edema, worsened on presentation this admission #8. Obesity Plan: The patient was seen and evaluated by Dr. Rowley. Chest x-ray and labs reviewed. Converted to oral prednisone. Complete course of antibiotics. Follow up with Dr. Quarles's schedule. Increase his activity as tolerated. Home once cleared medically. I, the cosigning physician, performed a history & physical examination of the patient. Lungs sounds with bilateral expiratory wheezing, diminished. Maintaining good O2 saturations in the 90s on 4 L/m per nasal cannula. I discussed the assessment and plan of care with my nurse practitioner, Kaycee Yoo. I attest to the above note as dictated by her.
[2019-10-08] MEDS: FORMOTEROL FUMARATE 20 MCG/2 ML NEBU INHALATION SCH (09:42)
[2019-10-08] MEDS: IPRATROPIUM-ALBUTEROL 3 ML NEB INHALATION SCH ×3 (09:42→16:31)
[2019-10-08] MEDS: BUDESONIDE 0.5 MG/2 ML NEBU INHALATION SCH (09:42)
[2019-10-08] MEDS ORDERED: FLUCONAZOLE 100 MG TAB PO SCH (09:45)
[2019-10-08] MEDS: METOPROLOL SUCCINATE (ER) 25 MG TAB.ER.24H PO SCH (09:49)
[2019-10-08] MEDS: SPIRONOLACTONE 25 MG TAB PO SCH (09:50)
[2019-10-08] MEDS: FUROSEMIDE 20 MG TAB PO SCH ×2 (09:51→17:07)
[2019-10-08] MEDS: LISINOPRIL 5 MG TAB PO SCH (09:51)
[2019-10-08] MEDS: PIPERACILLIN-TAZOBACTAM 3.375 GM in SODIUM CHLORIDE 0.9% 100 ML IVPB SCH (09:51)
[2019-10-08 12:05] VITALS: BP 113/62; TEMP 97.9
[2019-10-08] MEDS: LEVOFLOXACIN 750 MG TAB PO SCH (13:11)
[2019-10-08 16:43] VITALS: PULSE 88
[2019-10-08] MEDS ORDERED: WARFARIN 3 MG TAB PO ONE (18:00)
[2019-10-09] MEDS ORDERED: predniSONE 20 MG TAB PO SCH (09:00)
== END 2019-10-08 18:45 | disposition home or self-care (01) | DRG 871 ==
LOC: EC 12:47 → 6NMEDSUR 14:05 → 5NMEDONC 14:40
PROVIDERS: ADMIT Internal Medicine; ATTEND Internal Medicine
DX: A41.9 Sepsis, unspecified organism (principal); J18.9 Pneumonia, unspecified organism; J96.21 Acute and chronic respiratory failure with hypoxia; J96.22 Acute and chronic respiratory failure with hypercapnia; I50.23 Acute on chronic systolic (congestive) heart failure; B37.0 Candidal stomatitis; I48.20 Chronic atrial fibrillation, unspecified; J44.0 Chronic obstructive pulmonary disease with (acute) lower respiratory infection; J44.1 Chronic obstructive pulmonary disease with (acute) exacerbation; J98.11 Atelectasis; I48.92 Unspecified atrial flutter; E66.01 Morbid (severe) obesity due to excess calories; E78.5 Hyperlipidemia, unspecified; G47.33 Obstructive sleep apnea (adult) (pediatric); Z99.89 Dependence on other enabling machines and devices; I11.0 Hypertensive heart disease with heart failure; I48.0 Paroxysmal atrial fibrillation; M19.90 Unspecified osteoarthritis, unspecified site; R79.1 Abnormal coagulation profile; Z68.36 Body mass index [BMI] 36.0-36.9, adult; Z79.01 Long term (current) use of anticoagulants; Z79.899 Other long term (current) drug therapy; Z80.6 Family history of leukemia; Z87.891 Personal history of nicotine dependence; Z99.81 Dependence on supplemental oxygen; Z79.51 Long term (current) use of inhaled steroids; Z79.52 Long term (current) use of systemic steroids
CPT/HCPCS: 36415; 71045; 71046; 80048; 80053; 83605; 83880; 84484; 85025; 85610; 85730; 87040; 87070; 87205; 93005; 94640; 94760; 96365; 99291

== ENCOUNTER 2021-01-14 19:35 | Inpatient (IN) | payer MEDICARE, BC ==
[2021-01-14] MEDS ORDERED: ALBUTEROL NEBULIZED 7.5 MG, IPRATROPIUM NEBULIZED 0.5 MG, SODIUM CHLORIDE 0.9% NEBULIZ ... INHALATION ONE ×3 (19:47)
[2021-01-14] MEDS ORDERED: ALBUTEROL NEBULIZED 2.5 MG/3 ML INHALATION STA (20:06)
--- NOTE | 2021-01-14 20:06 | ED ---
General Adult HPI - General Chief complaint: Shortness of Breath Stated complaint: [place] Time Seen by Provider: 01/14/21 19:38 Source: patient, EMS Mode of arrival: EMS Limitations: no limitations - History of Present Illness Initial comments: Patient presents to ED complaining of having worsening dyspnea for the past couple of weeks. Patient has COPD, and he states he has been giving himself several neb treatments daily with only minimal/temporary relief. Patient was given a DuoNeb treatment by EMS, as well as Solu-Medrol 125 mg IV. Patient states that he is normally on 4 L of home O2. Patient admits to have a chronic and unchanged cough. Patient denies having any pain, fever or chills, headache, focal neuro deficit, chest pain, hemoptysis, palpitations, dizziness, abdominal pain, nausea/vomiting/diarrhea, dysuria or urinary symptoms, decreased urine output, leg or calf pain, or any other symptoms or complaints. Patient denies Covid vaccination. - Related Data Home Medications Medication Instructions Recorded Confirmed Atorvastatin [Lipitor] 20 mg PO DAILY 05/02/17 01/14/21 Latanoprost Ophth [Xalatan 0.005%] 1 drop BOTH EYES HS 01/11/19 01/14/21 lisinopriL [Zestril] 5 mg PO DAILY 03/11/19 01/14/21 Albuterol Nebulized [Ventolin 2.5 mg INHALATION RT-QID 10/02/19 01/14/21 Nebulized] Ipratropium Nebulized [Atrovent 0.5 mg INHALATION RT-QID 10/02/19 01/14/21 Nebulized 0.2 MG/ML] Warfarin [Coumadin] 7.5 mg PO SUMOWEFR@199910/02/19 01/14/21 Warfarin [Coumadin] 10 mg PO TUSA@199910/02/19 01/14/21 Allopurinol [Zyloprim] 100 mg PO DAILY 01/14/21 01/14/21 Amoxicillin/Potassium Clav 1 tab PO BID 01/14/21 01/14/21 [Augmentin 875-125 Tablet] Ergocalciferol (Vitamin D2) 1,250 mcg PO SA 01/14/21 01/14/21 [Drisdol (50,000 Iu)] Furosemide [Lasix] 40 mg PO DAILY 01/14/21 01/14/21 Ibuprofen [Motrin] 800 mg PO Q8H PRN 01/14/21 01/14/21 Metoprolol Succinate [Toprol XL] 50 mg PO DAILY 01/14/21 01/14/21 Nitroglycerin Sl Tabs [Nitrostat] 0.4 mg SUBLINGUAL Q5M PRN 01/14/21 01/14/21 Torsemide [Demadex] 100 mg PO DAILY 01/14/21 01/14/21 predniSONE See Taper PO DAILY 01/14/21 01/14/21 Allergies Allergy/AdvReac Type Severity Reaction Status Date / Time No Known Allergies Allergy Verified 01/14/21 21:32 Review of Systems ROS Statement: Those systems with pertinent positive or pertinent negative responses have been documented in the HPI. ROS Other: All systems not noted in ROS Statement are negative. Past Medical History Past Medical History: Atrial Fibrillation, Heart Failure, COPD, Eye Disorder, Hyperlipidemia, Hypertension, Osteoarthritis (OA), Pneumonia Additional Past Medical History / Comment(s): COPD,02 4 liters n/c at hs, previous history of acute respiratory failure related to COPD exacerbation/vented, glaucoma, obesity, chronic atrial fibrillation/flutter,wears contact lense rt eye and also weras glasses History of Any Multi-Drug Resistant Organisms: None Reported Past Surgical History: Ablation Additional Past Surgical History / Comment(s): right eye surgery.colonoscopy Past Anesthesia/Blood Transfusion Reactions: No Reported Reaction Past Psychological History: No Psychological Hx Reported Smoking Status: Former smoker Past Alcohol Use History: None Reported Past Drug Use History: None Reported - Past Family History Brother(s) Family Medical History: Cancer Additional Family Medical History / Comment(s): CMML General Exam Limitations: no limitations General appearance: alert Head exam: Present: atraumatic, normocephalic Eye exam: Present: normal appearance, EOMI ENT exam: Present: mucous membranes moist Neck exam: Present: other (Trachea is in midline) Respiratory exam: Present: respiratory distress, wheezes, prolonged expiratory, other (Equal breath sounds bilaterally). Absent: rales, rhonchi, stridor Cardiovascular Exam: Present: regular rate, normal rhythm, normal heart sounds, other (Normal radial pulses bilaterally) GI/Abdominal exam: Present: soft. Absent: tenderness, guarding Extremities exam: Present: pedal edema, other (Negative Homans sign bilaterally). Absent: tenderness, calf tenderness Neurological exam: Present: alert, oriented X3. Absent: motor sensory deficit Psychiatric exam: Present: normal affect, normal mood Skin exam: Present: warm, dry, intact, normal color Course Vital Signs 01/14/21 01/14/21 01/14/21 19:54 20:10 20:11 Temperature 98.3 F Pulse Rate 92 90 91 Respiratory 20 20 Rate Blood Pressure 114/50 130/57 O2 Sat by Pulse 96 93 L Oximetry 01/14/21 01/14/21 20:25 21:14 Temperature Pulse Rate 90 100 Respiratory 18 Rate Blood Pressure 109/69 O2 Sat by Pulse 88 L Oximetry - Reevaluation(s) Reevaluation #1: 01/14/21 22:12 Patient states that his dyspnea is improved with ED treatment, and he denies development of any new symptoms while in the ED. Patient's work of breathing and air movement have now improved on examination. Patient and are aware the patient's test results, and they both agree with hospital admission at this time. 01/14/21 22:16 Case, H&P, test results and ED/EMS management were discussed with Dr. Crump who is currently in the ED. He accepts hospital admission. He agrees with pulmonology consultation. He has no further recommendations at this time. EKG Findings - EKG Comments: EKG Findings:: Normal sinus rhythm, ventricular rate of 90 bpm, no ectopy, normal PA and QRS intervals, normal QT interval, normal axis, no ST or T-wave abnormality Medical Decision Making - Medical Decision Making Patient's Covid study is negative. Patient's chest x-ray shows only subsegmental atelectasis at the lung bases. Patient is afebrile. Patient's BNP is within normal limits. I suspect that the patient's acute on chronic renal insufficiency may secondary to dehydration. Will treat the patient with IV fluids. I suspect that the patient's dyspnea is likely secondary to COPD exacerbation. Will continue to administer neb treatments. Dr. Crump has accepted hospital admission. Patient's elevated potassium level is likely secondary to a hemolyzed specimen. A repeat CMP was redrawn and sent, and it is still pending at this time. - Lab Data Result diagrams: 01/14/21 20:07 01/14/21 20:07 Lab Results 01/14/21 01/14/21 01/14/21 Range/Units 20:07 20:07 20:07 WBC 14.5 H (3.8-10.6) k/uL RBC 3.70 L (4.30-5.90) m/uL Hgb 11.1 L (13.0-17.5) gm/dL Hct 36.8 L (39.0-53.0) % MCV 99.5 (80.0-100.0) fL MCH 30.0 (25.0-35.0) pg MCHC 30.1 L (31.0-37.0) g/dL RDW 14.2 (11.5-15.5) % Plt Count 351 (150-450) k/uL MPV 7.0 Neutrophils % 89 % Lymphocytes % 7 % Monocytes % 3 % Eosinophils % 0 % Basophils % 0 % Neutrophils # 12.9 H (1.3-7.7) k/uL Lymphocytes # 1.0 (1.0-4.8) k/uL Monocytes # 0.5 (0-1.0) k/uL Eosinophils # 0.0 (0-0.7) k/uL Basophils # 0.0 (0-0.2) k/uL Hypochromasia Marked PT 30.5 H (9.0-12.0) sec INR 3.2 H (<1.2) APTT 34.8 H (22.0-30.0) sec Sodium 133 L (137-145) mmol/L Potassium 6.7 H* (3.5-5.1) mmol/L Chloride 90 L (98-107) mmol/L Carbon Dioxide 35 H (22-30) mmol/L Anion Gap 8 mmol/L BUN 71 H (9-20) mg/dL Creatinine 2.53 H (0.66-1.25) mg/dL Est GFR (CKD-EPI)AfAm 29 (>60 ml/min/1.73 sqM) Est GFR (CKD-EPI)NonAf 25 (>60 ml/min/1.73 sqM) Glucose 218 H (74-99) mg/dL Plasma Lactic Acid Jesus (0.7-2.0) mmol/L Calcium 7.4 L (8.4-10.2) mg/dL Total Bilirubin 0.5 (0.2-1.3) mg/dL AST 24 (17-59) U/L ALT 14 (4-49) U/L Alkaline Phosphatase 86 (38-126) U/L Troponin I (0.000-0.034) ng/mL NT-Pro-B Natriuret Pep pg/mL Total Protein 5.6 L (6.3-8.2) g/dL Albumin 3.5 (3.5-5.0) g/dL Coronavirus (PCR) (Not Detectd) 01/14/21 01/14/21 01/14/21 Range/Units 20:07 20:07 20:07 WBC (3.8-10.6) k/uL RBC (4.30-5.90) m/uL Hgb (13.0-17.5) gm/dL Hct (39.0-53.0) % MCV (80.0-100.0) fL MCH (25.0-35.0) pg MCHC (31.0-37.0) g/dL RDW (11.5-15.5) % Plt Count (150-450) k/uL MPV Neutrophils % % Lymphocytes % % Monocytes % % Eosinophils % % Basophils % % Neutrophils # (1.3-7.7) k/uL Lymphocytes # (1.0-4.8) k/uL Monocytes # (0-1.0) k/uL Eosinophils # (0-0.7) k/uL Basophils # (0-0.2) k/uL Hypochromasia PT (9.0-12.0) sec INR (<1.2) APTT (22.0-30.0) sec Sodium (137-145) mmol/L Potassium (3.5-5.1) mmol/L Chloride (98-107) mmol/L Carbon Dioxide (22-30) mmol/L Anion Gap mmol/L BUN (9-20) mg/dL Creatinine (0.66-1.25) mg/dL Est GFR (CKD-EPI)AfAm (>60 ml/min/1.73 sqM) Est GFR (CKD-EPI)NonAf (>60 ml/min/1.73 sqM) Glucose (74-99) mg/dL Plasma Lactic Acid Jesus 2.1 H* (0.7-2.0) mmol/L Calcium (8.4-10.2) mg/dL Total Bilirubin (0.2-1.3) mg/dL AST (17-59) U/L ALT (4-49) U/L Alkaline Phosphatase (38-126) U/L Troponin I 0.012 (0.000-0.034) ng/mL NT-Pro-B Natriuret Pep 542 pg/mL Total Protein (6.3-8.2) g/dL Albumin (3.5-5.0) g/dL Coronavirus (PCR) (Not Detectd) 01/14/21 Range/Units 20:07 WBC (3.8-10.6) k/uL RBC (4.30-5.90) m/uL Hgb (13.0-17.5) gm/dL Hct (39.0-53.0) % MCV (80.0-100.0) fL MCH (25.0-35.0) pg MCHC (31.0-37.0) g/dL RDW (11.5-15.5) % Plt Count (150-450) k/uL MPV Neutrophils % % Lymphocytes % % Monocytes % % Eosinophils % % Basophils % % Neutrophils # (1.3-7.7) k/uL Lymphocytes # (1.0-4.8) k/uL Monocytes # (0-1.0) k/uL Eosinophils # (0-0.7) k/uL Basophils # (0-0.2) k/uL Hypochromasia PT (9.0-12.0) sec INR (<1.2) APTT (22.0-30.0) sec Sodium (137-145) mmol/L Potassium (3.5-5.1) mmol/L Chloride (98-107) mmol/L Carbon Dioxide (22-30) mmol/L Anion Gap mmol/L BUN (9-20) mg/dL Creatinine (0.66-1.25) mg/dL Est GFR (CKD-EPI)AfAm (>60 ml/min/1.73 sqM) Est GFR (CKD-EPI)NonAf (>60 ml/min/1.73 sqM) Glucose (74-99) mg/dL Plasma Lactic Acid Jesus (0.7-2.0) mmol/L Calcium (8.4-10.2) mg/dL Total Bilirubin (0.2-1.3) mg/dL AST (17-59) U/L ALT (4-49) U/L Alkaline Phosphatase (38-126) U/L Troponin I (0.000-0.034) ng/mL NT-Pro-B Natriuret Pep pg/mL Total Protein (6.3-8.2) g/dL Albumin (3.5-5.0) g/dL Coronavirus (PCR) Not Detected (Not Detectd) - Radiology Data Radiology results: report reviewed (Chest x-ray: Mild subsegmental atelectasis at lung bases, normal heart) Disposition Clinical Impression: COPD exacerbation, Renal insufficiency Disposition: ADMITTED IP TO THIS HOSP Condition: Stable Is patient prescribed a controlled substance at d/c from ED?: No Referrals: Filippo Campos MD [Primary Care Provider] - 1-2 days Time of Disposition: 22:17
[2021-01-14] MEDS ORDERED: IPRATROPIUM 0.5 MG/2.5 ML NEBU INHALATION STA (20:07)
[2021-01-14 20:37] LABS: INR 3.2 (<1.2); Partial Thromboplastin Time 34.8 sec (22.0-30.0); Prothrombin Time 30.5 sec (9.0-12.0)
--- NOTE | 2021-01-14 20:43 | XR ---
EXAMINATION TYPE: XR chest 2V DATE OF EXAM: 01/14/2021 COMPARISON: The HISTORY: Short of breath TECHNIQUE: 2 views FINDINGS: There is some atelectasis at the lung bases. Heart size is normal. There are chest leads. C ostophrenic angles are clear. IMPRESSION: Mild subsegmental atelectasis at the lung bases. This appears new compared to old exam. N ormal heart.
[2021-01-14 20:49] LABS: Basophils % (A) 0 %; Eosinophils % (A) 0 %; HCT 36.8 % (39.0-53.0); HGB 11.1 gm/dL (13.0-17.5); Hypochromasia Marked; Lymphocytes % (A) 7 %; MCHC 30.1 g/dL (31.0-37.0); MCV 99.5 fL (80.0-100.0); Monocytes # (A) 0.5 k/uL (0-1.0); Monocytes % (A) 3 %; Neutrophils # (A) 12.9 k/uL (1.3-7.7); Neutrophils % (A) 89 %; Platelet Count 351 k/uL (150-450); RDW 14.2 % (11.5-15.5); WBC 14.5 k/uL (3.8-10.6)
[2021-01-14 21:17] LABS: Total Bilirubin 0.5 mg/dL (0.2-1.3); Total Protein 5.6 g/dL (6.3-8.2)
[2021-01-14 21:35] LABS: Albumin 3.5 g/dL (3.5-5.0); Calcium 7.4 mg/dL (8.4-10.2)
[2021-01-14] MEDS ORDERED: SODIUM CHLORIDE 0.9% 500 ML 500 ML IV ONE (21:37)
[2021-01-14 21:56] LABS: Potassium 6.7 mmol/L (3.5-5.1)
[2021-01-14] MEDS ORDERED: SODIUM CHLORIDE 0.9% 1,000 ML IV SCH (22:30)
[2021-01-14] MEDS ORDERED: SODIUM POLYSTYRENE SULFONATE 15 GM/60 ML BOTTLE PO STA (23:27)
[2021-01-15] MEDS ORDERED: CALCIUM GLUCONATE 1 GM in SODIUM CHLORIDE 0.9% 100 ML IVPB ONE ×2
--- NOTE | 2021-01-15 00:09 | P.HPIM ---
History of Present Illness H&P Date: 01/14/21 Patient is a 70-year-old male with a PMH of advanced COPD, chronic hypoxic respiratory failure on 4 L nasal cannula oxygen continuously at home, systolic CHF, hypertension, A. fib on Coumadin, and hyperlipidemia presented to the emergency room with complaints of gradually worsening shortness of breath. The patient is accompanied by his at the bedside. Patient reports that over the past few weeks, he has noticed that he now gets winded with even minimal exertion such as walking to the bathroom. He reports that even after resting, it takes him a lot longer to get back to his baseline after the above-mentioned exertion. She sleeps in a reclined position which is unchanged over the past few weeks. He reports some chest tightness with these episodes which resolves with rest. Also reports that his cough is now productive with more yellow-green phlegm than usual. He also reports long-standing unchanged lower extremity pitting edema bilaterally. Denied fevers at home. Also denied abdominal pain, nausea, vomiting, diarrhea, dizziness. In the emergency room a chest x-ray revealed mild subsegmental atelectasis bilateral bases. EKG revealed normal sinus rhythm at [address]/T-wave changes noted as reviewed by me. Laboratory evaluation was remarkable for WBC count 14.5, hemoglobin 11.1, INR 3.2, sodium 133, potassium 6.7 (hemolyzed), chloride 90, CO2 35, BUN 71, crea tinine 2.53, lactic acid 2.1, troponin 0.012, coronavirus PCR negative, and proBNP 542. She was given nebulizer treatments and is being admitted to the hospital for further management. Review of Systems Pertinent positives and negatives as discussed in HPI, a complete review of systems was performed and all other systems are negative. Past Medical History Past Medical History: Atrial Fibrillation, Heart Failure, COPD, Eye Disorder, Hyperlipidemia, Hypertension, Osteoarthritis (OA), Pneumonia Additional Past Medical History / Comment(s): COPD,02 4 liters n/c at hs, previous history of acute respiratory failure related to COPD exacerbation/vented, glaucoma, obesity, chronic atrial fibrillation/flutt er,wears contact lense rt eye and also weras glasses History of Any Multi-Drug Resistant Organisms: None Reported Past Surgical History: Ablation Additional Past Surgical History / Comment(s): right eye surgery.colonoscopy Past Anesthesia/Blood Transfusion Reactions: No Reported Reaction Past Psychological History: No Psychological Hx Reported Smoking Status: Former smoker Past Alcohol Use History: None Reported Past Drug Use History: None Reported - Past Family History Brother(s) Family Medical History: Cancer Additional Family Medical History / Comment(s): CMML Medications and Allergies Home Medications Medication Instructions Recorded Confirmed Type Atorvastatin [Lipitor] 20 mg PO DAILY 05/02/17 01/14/21 History Latanoprost Ophth [Xalatan 0.005%] 1 drop BOTH EYES HS 01/11/19 01/14/21 History lisinopriL [Zestril] 5 mg PO DAILY 03/11/19 01/14/21 History Albuterol Nebulized [Ventolin 2.5 mg INHALATION RT-QID 10/02/19 01/14/21 History Nebulized] Ipratropium Nebulized [Atrovent 0.5 mg INHALATION RT-QID 10/02/19 01/14/21 History Nebulized 0.2 MG/ML] Warfarin [Coumadin] 7.5 mg PO SUMOWEFR@199910/02/19 01/14/21 History Warfarin [Coumadin] 10 mg PO TUSA@199910/02/19 01/14/21 History Allopurinol [Zyloprim] 100 mg PO DAILY 01/14/21 01/14/21 History Amoxicillin/Potassium Clav 1 tab PO BID 01/14/21 01/14/21 History [Augmentin 875-125 Tablet] Ergocalciferol (Vitamin D2) 1,250 mcg PO SA 01/14/21 01/14/21 History [Drisdol (50,000 Iu)] Furosemide [Lasix] 40 mg PO DAILY 01/14/21 01/14/21 History Ibuprofen [Motrin] 800 mg PO Q8H PRN 01/14/21 01/14/21 History Metoprolol Succinate [Toprol XL] 50 mg PO DAILY 01/14/21 01/14/21 History Nitroglycerin Sl Tabs [Nitrostat] 0.4 mg SUBLINGUAL Q5M PRN 01/14/21 01/14/21 History Torsemide [Demadex] 100 mg PO DAILY 01/14/21 01/14/21 History predniSONE See Taper PO DAILY 01/14/21 01/14/21 History Allergies Allergy/AdvReac Type Severity Reaction Status Date / Time No Known Allergies Allergy Verified 01/14/21 21:32 Physical Exam Vitals: Vital Signs Temp Pulse Resp BP Pulse Ox 01/14/21 21:14 100 18 109/69 88 L 01/14/21 20:25 90 01/14/21 20:11 91 20 130/57 93 L 01/14/21 20:10 90 01/14/21 19:54 98.3 F 92 20 114/50 96 Intake and Output 01/14/21 01/14/21 01/15/21 14:59 22:59 06:59 Other: Weight 122.47 kg General: non toxic, no distress, appears older than stated age, obese Derm: chronic LE venous stasis changes, no unusual ecchymoses, warm, dry Head: atraumatic, normocephalic, symmetric Eyes: EOMI, no lid lag, anicteric sclera, s/p desean lens replacement ENT: Nose and ears atraumatic, no thrush, no pharyngeal erythema Neck: No thyromegaly, no cervical lymphadenopathy, trachea midline, supple Mouth: no lip lesion, mucus membranes moist Cardiovascular: S1S2 reg, no murmur, positive posterior tibial pulse bilateral, 2+ desean LE pitting edema, capillary refill less than 2 seconds Lungs: Poor air entry bilaterally with wheezing and some scattered rhonchi with bibasilar rales, no accessory muscle use Abdominal: obese, nontender to palpation, no guarding, no appreciable organomegaly, normal bowel sounds Ext: no gross muscle atrophy, muscle strength 5 out of 5 in all 4 extremities g rossly, no contractures Neuro: CN II-XI grossly intact, light touch intact all 4 extremities, finger to nose within normal limits, Psych: Alert, oriented, appropriate affect Results CBC & Chem 7: 01/14/21 20:07 01/14/21 22:06 Labs: Abnormal Lab Results - Last 24 Hours (Table) 01/14/21 01/14/21 01/14/21 Range/Units 20:07 20:07 20:07 WBC 14.5 H (3.8-10.6) k/uL RBC 3.70 L (4.30-5.90) m/uL Hgb 11.1 L (13.0-17.5) gm/dL Hct 36.8 L (39.0-53.0) % MCHC 30.1 L (31.0-37.0) g/dL Neutrophils # 12.9 H (1.3-7.7) k/uL PT 30.5 H (9.0-12.0) sec INR 3.2 H (<1.2) APTT 34.8 H (22.0-30.0) sec Sodium 133 L (137-145) mmol/L Potassium 6.7 H* (3.5-5.1) mmol/L Chloride 90 L (98-107) mmol/L Carbon Dioxide 35 H (22-30) mmol/L BUN 71 H (9-20) mg/dL Creatinine 2.53 H (0.66-1.25) mg/dL Glucose 218 H (74-99) mg/dL Plasma Lactic Acid Jesus (0.7-2.0) mmol/L Calcium 7.4 L (8.4-10.2) mg/dL Total Protein 5.6 L (6.3-8.2) g/dL 01/14/21 01/14/21 Range/Units 20:07 22:06 WBC (3.8-10.6) k/uL RBC (4.30-5.90) m/uL Hgb (13.0-17.5) gm/dL Hct (39.0-53.0) % MCHC (31.0-37.0) g/dL Neutrophils # (1.3-7.7) k/uL PT (9.0-12.0) sec INR (<1.2) APTT (22.0-30.0) sec Sodium (137-145) mmol/L Potassium 6.0 H (3.5-5.1) mmol/L Chloride (98-107) mmol/L Carbon Dioxide (22-30) mmol/L BUN (9-20) mg/dL Creatinine (0.66-1.25) mg/dL Glucose (74-99) mg/dL Plasma Lactic Acid Jesus 2.1 H* (0.7-2.0) mmol/L Calcium (8.4-10.2) mg/dL Total Protein (6.3-8.2) g/dL Assessment and Plan Plan: SOB, likely due to combined COPD and CHF exacerbations -C/w Duonebs, Prednisone -Pulmonary consult -Supplemental oxygen -Patient does not appear to be on inhaled steroids at home -Cardiology consult -I/Os, daily weights -Avoid over-diuresis in setting of ZABRINA ZABRINA on CKD stage 3 -Monitor BMP for now. Avoid over-diuresis. Hyperkalemia, possibly due to ZABRINA -Kayexalate ordered -Monitor BMP -Consider discontinuing home Lisinopril Alkalosis, may be due to over-diuresis and volume contraction -Monitor for now Leukocytosis, likely due to home oral prednisone use -Monitor for now Afib -C/w Coumadin DVT prophylaxis -Coumadin The patient is admitted with an anticipated greater than 2 midnight stay for evaluation of COPD and CHF exacerbations CODE STATUS: Full Code Discussed with: Patient Anticipated discharge date: 2-[address]: Home A total of 35 minutes was spent on the care of this complex patient more than 50% of the time was spent in counseling and care coordination.
[2021-01-15 03:37] LABS: Basophils % (A) 0 %; Eosinophils % (A) 0 %; HCT 36.9 % (39.0-53.0); HGB 11.3 gm/dL (13.0-17.5); Hypochromasia Marked; Lymphocytes # (A) 0.6 k/uL (1.0-4.8); Lymphocytes % (A) 4 %; MCH 30.5 pg (25.0-35.0); MCHC 30.5 g/dL (31.0-37.0); MCV 99.9 fL (80.0-100.0); Mean Platelet Volume 7.1; Monocytes # (A) 0.2 k/uL (0-1.0); Monocytes % (A) 2 %; Neutrophils # (A) 14.6 k/uL (1.3-7.7); Neutrophils % (A) 95 %; Platelet Count 324 k/uL (150-450); RBC 3.69 m/uL (4.30-5.90); RDW 13.9 % (11.5-15.5); WBC 15.4 k/uL (3.8-10.6)
[2021-01-15 04:07] LABS: Albumin 3.7 g/dL (3.5-5.0); Calcium 7.6 mg/dL (8.4-10.2); Magnesium 2.3 mg/dL (1.6-2.3); Potassium 5.7 mmol/L (3.5-5.1); Total Bilirubin 0.3 mg/dL (0.2-1.3); Total Protein 5.8 g/dL (6.3-8.2)
[2021-01-15] MEDS: IPRATROPIUM-ALBUTEROL 3 ML NEB INHALATION PRN ×2 (05:45→22:08)
[2021-01-15] MEDS: TORSEMIDE 20 MG TAB PO SCH (07:45)
[2021-01-15] MEDS: AMOXIC-POT CLAV 875-125MG 1 EACH TAB PO SCH ×2 (07:45→22:22)
[2021-01-15] MEDS ORDERED: IPRATROPIUM 0.5 MG/2.5 ML NEBU INHALATION SCH (08:00)
[2021-01-15] MEDS ORDERED: ALBUTEROL NEBULIZED 2.5 MG/3 ML INHALATION SCH (08:00)
[2021-01-15] MEDS: IPRATROPIUM-ALBUTEROL 3 ML NEB INHALATION SCH ×5 (08:08→19:19)
[2021-01-15] MEDS ORDERED: lisinopriL 5 MG TAB PO SCH (09:00)
[2021-01-15] MEDS: predniSONE 20 MG TAB PO SCH (09:29)
[2021-01-15] MEDS: METOPROLOL SUCCINATE (ER) 50 MG TAB.ER.24H PO SCH (09:30)
[2021-01-15] MEDS: ATORVASTATIN 20 MG TAB PO SCH (09:30)
[2021-01-15] MEDS: allopurinoL 100 MG TAB PO SCH (09:30)
[2021-01-15] MEDS: BUDESONIDE 1 MG/2 ML NEBU INHALATION SCH ×2 (09:32→19:20)
[2021-01-15] MEDS: FORMOTEROL FUMARATE 20 MCG/2 ML NEBU INHALATION SCH ×2 (09:32→19:19)
--- NOTE | 2021-01-15 11:40 | P.CRDCN ---
History of Present Illness Consult date: 01/15/21 History of present illness: HISTORY OF PRESENT ILLNESS: This is a 70-year-old male with a past medical history significant for atrial fibrillation with previous ablation, CHF, COPD, hyperlipidemia, hypertension, home oxygen, and former nicotine dependence. Patient follows in the office with Dr. Saldivar. We have been asked to see the patient in consultation for congestive heart failure. Patient examined at the bedside this morning in the emergency room. Patient reports she has been having increased shortness of breath over the past few days. He also reports some intermittent chest pain and states he took a nitroglycerin yesterday. At the time of examination he currently denies chest pain. The patient was started on IV steroids and ad mitted to the hospital for further evaluation. EKG reveals sinus mechanism with no signs of acute ischemia Chest xray mild subsegmental atelectasis at the lung bases. This appears new compared to exam. Normal heart. Laboratory data: WBC 15.4. Hemoglobin 11.3. Platelet count 324. Sodium 135. Potassium 5.7. BUN 66. Creatinine 2.31. Troponin negative 1. Current home cardiac medications include Coumadin 10 mg Friday and Friday and 7.5 mg Friday. Most recent echocardiogram obtained in 2019 revealed ejection fraction 55-60%, trace mitral regurgitation and trace tricuspid regurgitation. Patient underwent stress testing in the office in 2017 revealing fixed perfusion defect in the inferior basal segment suggestive of soft tissue artifact REVIEW OF SYSTEMS: At the time of my exam: CONSTITUTIONAL: Denies fever or chills. HEENT: Denies blurred vision, vision changes, or eye pain. Denies hemoptysis CARDIOVASCULAR: Denies chest pain. Denies orthopnea. Denies PND. Denies palpitations RESPIRATORY: Denies shortness of breath. GASTROINTESTINAL: Denies abdominal pain. Denies nausea or vomiting. HEMATOLOGIC: Denies bleeding disorders. GENITOURINARY: Denies any blood in urine. SKIN: Denies pruitis. Denies rash. PHYSICAL EXAM: VITAL SIGNS: Reviewed. GENERAL: Well-developed in no acute distress. HEENT: Head is normocephalic. Pupils are equal, round. Sclerae anicteric. Mucous membranes of the mouth are moist. Neck supple. No JVD or thyromegaly LUNGS: Respirations even and unlabored. Lungs diminished with scattered rhonchi HEART: Regular rate and rhythm. S1 and S2 heard. ABDOMEN: Soft. Nondistended. Nontender. EXTREMITIES: Normal range of motion. No clubbing or cyanosis. Peripheral pulses intact. 2+ bilateral lower extremity edema NEUROLOGIC: Awake and alert. Oriented x 3. ASSESSMENT: Shortness of breath Acute exacerbation of COPD Chronic diastolic congestive heart failure, ejection fraction 55-60%, BNP 542 History of paroxysmal atrial fibrillation with previous ablation, on anticoagulation with Coumadin Chronic hypoxic respiratory failure, patient wears home O2 Hyperkalemia Acute kidney injury Leukocytosis Hypertension Hyperlipidemia Former nicotine dependence PLAN: Pulmonary following. Continue steroids per pulmonary. Obtain 2-D echo to assess cardiac structure and function Obtain 2 additional troponin levels Continue home dose of Demadex Daily weights Accurate I&O Monitor kidney function. Patient may benefit from nephrology consultation Hold lisinopril secondary to acute kidney injury Monitor INR. Continue anticoagulation with Coumadin Further recommendations pending patient's course Nurse practitioner note has been reviewed by physician. Signing provider agrees with the documented findings, assessment, and plan of care. Past Medical History Past Medical History: Atrial Fibrillation, Heart Failure, COPD, Eye Disorder, Hyperlipidemia, Hypertension, Osteoarthritis (OA), Pneumonia Additional Past Medical History / Comment(s): COPD,02 4 liters n/c at hs, previous history of acute respiratory failure related to COPD exacer bation/vented, glaucoma, obesity, chronic atrial fibrillation/flutter,wears contact lense rt eye and also weras glasses History of Any Multi-Drug Resistant Organisms: None Reported Past Surgical History: Ablation Additional Past Surgical History / Comment(s): right eye surgery.colonoscopy Past Anesthesia/Blood Transfusion Reactions: No Reported Reaction Past Psychological History: No Psychological Hx Reported Smoking Status: Former smoker Past Alcohol Use History: None Reported Past Drug Use History: None Reported - Past Family History Brother(s) Family Medical History: Cancer Additional Family Medical History / Comment(s): CMML Medications and Allergies Home Medications Medication Instructions Recorded Confirmed Type Atorvastatin [Lipitor] 20 mg PO DAILY 05/02/17 01/14/21 History Latanoprost Ophth [Xalatan 0.005%] 1 drop BOTH EYES HS 01/11/19 01/14/21 History lisinopriL [Zestril] 5 mg PO DAILY 03/11/19 01/14/21 History Albuterol Nebulized [Ventolin 2.5 mg INHALATION RT-QID 10/02/19 01/14/21 History Nebulized] Ipratropium Nebulized [Atrovent 0.5 mg INHALATION RT-QID 10/02/19 01/14/21 History Nebulized 0.2 MG/ML] Warfarin [Coumadin] 7.5 mg PO SUMOWEFR@199910/02/19 01/14/21 History Warfarin [Coumadin] 10 mg PO TUSA@199910/02/19 01/14/21 History Allopurinol [Zyloprim] 100 mg PO DAILY 01/14/21 01/14/21 History Amoxicillin/Potassium Clav 1 tab PO BID 01/14/21 01/14/21 History [Augmentin 875-125 Tablet] Ergocalciferol (Vitamin D2) 1,250 mcg PO SA 01/14/21 01/14/21 History [Drisdol (50,000 Iu)] Furosemide [Lasix] 40 mg PO DAILY 01/14/21 01/14/21 History Ibuprofen [Motrin] 800 mg PO Q8H PRN 01/14/21 01/14/21 History Metoprolol Succinate [Toprol XL] 50 mg PO DAILY 01/14/21 01/14/21 History Nitroglycerin Sl Tabs [Nitrostat] 0.4 mg SUBLINGUAL Q5M PRN 01/14/21 01/14/21 History Torsemide [Demadex] 100 mg PO DAILY 01/14/21 01/14/21 History predniSONE See Taper PO DAILY 01/14/21 01/14/21 History Allergies Allergy/AdvReac Type Severity Reaction Status Date / Time No Known Allergies Allergy Verified 01/14/21 21:32 Physical Exam Vitals: Vital Signs Temp Pulse Resp BP Pulse Ox 01/15/21 11:00 110 H 28 H 124/53 90 L 01/15/21 10:00 108 H 27 H 124/53 91 L 01/15/21 09:46 114 H 01/15/21 09:40 116 H 01/15/21 09:39 116 H 01/15/21 09:34 111 H 01/15/21 08:00 98 25 H 116/66 94 L 01/15/21 07:40 99 18 116/66 94 L 01/15/21 06:54 98.3 F 106 H 20 105/43 87 L 01/15/21 05:56 100 01/15/21 05:47 108 H 01/15/21 05:20 97.6 F 111 H 26 H 140/66 86 L 01/15/21 01:14 98 F 92 18 112/57 89 L 01/14/21 23:20 97.6 F 88 16 107/48 91 L 01/14/21 21:14 100 18 109/69 88 L 01/14/21 20:25 90 01/14/21 20:11 91 20 130/57 93 L 01/14/21 20:10 90 01/14/21 19:54 98.3 F 92 20 114/50 96 Intake and Output 01/14/21 01/15/21 01/15/21 22:59 06:59 14:59 Intake Total 50 Output Total 800 Balance -800 50 Intake: Oral 50 Output: Urine 800 Other: Weight 122.47 kg Results 01/15/21 03:15 01/15/21 03:15 Cardiac Enzymes 01/14/21 01/14/21 01/15/21 Range/Units 20:07 20:07 03:15 AST 24 19 (17-59) U/L Troponin I 0.012 (0.000-0.034) ng/mL 01/15/21 Range/Units 09:11 AST (17-59) U/L Troponin I <0.012 (0.000-0.034) ng/mL Coagulation 01/14/21 Range/Units 20:07 PT 30.5 H (9.0-12.0) sec APTT 34.8 H (22.0-30.0) sec CBC 01/14/21 01/15/21 Range/Units 20:07 03:15 WBC 14.5 H 15.4 H (3.8-10.6) k/uL RBC 3.70 L 3.69 L (4.30-5.90) m/uL Hgb 11.1 L 11.3 L (13.0-17.5) gm/dL Hct 36.8 L 36.9 L (39.0-53.0) % Plt Count 351 324 (150-450) k/uL Comprehensive Metabolic Panel 01/14/21 01/14/21 01/15/21 Range/Units 20:07 22:06 03:15 Sodium 133 L 135 L (137-145) mmol/L Potassium 6.7 H* 6.0 H 5.7 H (3.5-5.1) mmol/L Chloride 90 L 91 L (98-107) mmol/L Carbon Dioxide 35 H 36 H (22-30) mmol/L BUN 71 H 66 H (9-20) mg/dL Creatinine 2.53 H 2.31 H (0.66-1.25) mg/dL Glucose 218 H 203 H (74-99) mg/dL Calcium 7.4 L 7.6 L (8.4-10.2) mg/dL AST 24 19 (17-59) U/L ALT 14 15 (4-49) U/L Alkaline Phosphatase 86 94 (38-126) U/L Total Protein 5.6 L 5.8 L (6.3-8.2) g/dL Albumin 3.5 3.7 (3.5-5.0) g/dL Current Medications Generic Name Dose Route Start Last Admin Trade Name Freq PRN Reason Stop Dose Admin Albuterol/Ipratropium 3 ml 01/15/21 09:00 01/15/21 09:32 Ipratropium-Albuterol 3 Ml Neb INHALATION 3 ml QID WADE Administration Albuterol/Ipratropium 3 ml 01/15/21 00:06 01/15/21 05:45 Ipratropium-Albuterol 3 Ml Neb INHALATION 3 ml RT-Q2H PRN Administration Shortness Of Breath Or Wheezing Allopurinol 100 mg 01/15/21 09:00 01/15/21 09:30 Allopurinol 100 Mg Tab PO 100 mg DAILY WADE Administration Amoxicillin/Clavulanate Potassium 1 each 01/15/21 09:00 01/15/21 07:45 Amoxic-Pot Clav 875-125mg 1 Each Tab PO 1 each BID WADE Administration Atorvastatin Calcium 20 mg 01/15/21 09:00 01/15/21 09:30 Atorvastatin 20 Mg Tab PO 20 mg DAILY WADE Administration Budesonide 1 mg 01/15/21 20:00 01/15/21 09:32 Budesonide 1 Mg/2 Ml Nebu INHALATION 1 mg RT-BID WADE Administration Formoterol Fumarate 20 mcg 01/15/21 20:00 01/15/21 09:32 Formoterol Fumarate 20 Mcg/2 Ml Nebu INHALATION 20 mcg RT-BID WADE Administration Methylprednisolone Sodium Succinate 60 mg 01/15/21 12:00 Methylprednisolone Sod Succi 125 Mg/2 Ml Vial IV Q6HR WADE Metoprolol Succinate 50 mg 01/15/21 09:00 01/15/21 09:30 Metoprolol Succinate (Er) 50 Mg Tab.Er.24h PO 50 mg DAILY WADE Administration Miscellaneous Information 1 each 01/15/21 00:06 Warfarin Per Pharmacy MISCELLANE DIRECTED PRN Per Protocol Protocol Prednisone 40 mg 01/15/21 09:00 01/15/21 09:29 Prednisone 20 Mg Tab PO 40 mg DAILY WADE Administration Torsemide 100 mg 01/15/21 09:00 01/15/21 07:45 Torsemide 20 Mg Tab PO 100 mg DAILY WADE Administration Warfarin Sodium 7.5 mg 01/15/21 18:00 Warfarin 7.5 Mg Tab PO 01/15/21 18:01 ONCE@1800 ONE Intake and Output 01/14/21 01/15/21 01/15/21 22:59 06:59 14:59 Intake Total 50 Output Total 800 Balance -800 50 Intake: Oral 50 Output: Urine 800 Other: Weight 122.47 kg 01/15/21 03:15 01/15/21 03:15
[2021-01-15] MEDS ORDERED: SODIUM POLYSTYRENE SULFONATE 15 GM/60 ML BOTTLE PO STA (12:29)
--- NOTE | 2021-01-15 12:48 | P.CNPUL ---
History of Present Illness Consult date: 01/15/21 Requesting physician: Wanda Crump Reason for consult: dyspnea Chief complaint: Dyspnea History of present illness: This is a 70-year-old white male patient of Dr. Campos with extensive medical history, including chronic hypoxic respiratory failure related to advanced COPD, chronic CHF, hypertension, hyperlipidemia, atrial fibrillation, previous episode of pneumonia requiring intubation and mechanical ventilation, morbid obesity, former smoker. Patient sees Dr. Quarles in the pulmonary clinic, however has not seen him in the office for the past 1 year. He has been mainly is following with this is a visiting physician, he states it has been harder for him to get to the office. He normally wears 4 L of oxygen on a regular basis. On 01/14/2021 patient presented to the emergency department with complaints of worsening dyspnea. He was given a prednisone taper and Augmentin on an outp atient basis, he has been compliant with this medications. He has been giving himself several nebulized treatments daily with no minimal or temporary relief. He was brought into the emergency department per EMS. He was given IV Solu- Medrol and breathing treatments. He denies any fever chills, no hemoptysis, no chest pain, he does have some increased swelling in his lower extremities. Has not had any COVID vaccination. His chest x-ray showed mild subsegmental atelectasis at the lung bases that appears to be new. COVID 19 with negative. White count was 14.5, hemoglobin is 11.1, INR is 3.2 and patient is on warfarin for history of A. fib, sodium is 133, potassium 6.7 which was treated with Kayexalate improved down to 5.7 this morning, BUN 71, creatinine is 2.53, patient has evidence of acute kidney injury, lactic acid was 2.1, LFTs were within normal limits, proBNP was 542, troponin was 0.012. Patient was started on breathing treatments and oral prednisone, he was given IV fluids and started on empiric antibiotics in the form of Augmentin. Review of Systems All systems: negative Constitutional: Denies chills, Denies fever Eyes: denies blurred vision, denies pain Ears, nose, mouth and throat: Denies headache, Denies sore throat Cardiovascular: Denies chest pain, Denies shortness of breath Respiratory: Reports dyspnea, Reports respiratory infections, Denies cough Gastrointestinal: Denies abdominal pain, Denies diarrhea, Denies nausea, Denies vomiting Musculoskeletal: Denies myalgias Integumentary: Denies pruritus, Denies rash Neurological: Denies numbness, Denies weakness Psychiatric: Denies anxiety, Denies depression Endocrine: Denies fatigue, Denies weight change Past Medical History Past Medical History: Atrial Fibrillation, Heart Failure, COPD, Eye Disorder, Hyperlipidemia, Hypertension, Osteoarthritis (OA), Pneumonia Additional Past Medical History / Comment(s): COPD,02 4 liters n/c at hs, previous history of acute respiratory failure related to COPD exacerbation/vented, glaucoma, obesity, chronic atrial fibrillation/flutter,wears contact lense rt eye and also weras glasses History of Any Multi-Drug Resistant Organisms: None Reported Past Surgical History: Ablation Additional Past Surgical History / Comment(s): right eye surgery.colonoscopy Past Anesthesia/Blood Transfusion Reactions: No Reported Reaction Past Psychological History: No Psychological Hx Reported Smoking Status: Former smoker Past Alcohol Use History: None Reported Past Drug Use History: None Reported - Past Family History Brother(s) Family Medical History: Cancer Additional Family Medical History / Comment(s): CMML Medications and Allergies Home Medications Medication Instructions Recorded Confirmed Type Atorvastatin [Lipitor] 20 mg PO DAILY 05/02/17 01/14/21 History Latanoprost Ophth [Xalatan 0.005%] 1 drop BOTH EYES 01/11/19 01/14/21 History lisinopriL [Zestril] 5 mg PO DAILY 03/11/19 01/14/21 History Albuterol Nebulized [Ventolin 2.5 mg INHALATION RT-QID 10/02/19 01/14/21 History Nebulized] Ipratropium Nebulized [Atrovent 0.5 mg INHALATION RT-QID 10/02/19 01/14/21 History Nebulized 0.2 MG/ML] Warfarin [Coumadin] 7.5 mg PO SUMOWEFR@199910/02/19 01/14/21 History Warfarin [Coumadin] 10 mg PO TUSA@199910/02/19 01/14/21 History Allopurinol [Zyloprim] 100 mg PO DAILY 01/14/21 01/14/21 History Amoxicillin/Potassium Clav 1 tab PO BID 01/14/21 01/14/21 History [Augmentin 875-125 Tablet] Ergocalciferol (Vitamin D2) 1,250 mcg PO SA 01/14/21 01/14/21 History [Drisdol (50,000 Iu)] Furosemide [Lasix] 40 mg PO DAILY 01/14/21 01/14/21 History Ibuprofen [Motrin] 800 mg PO Q8H PRN 01/14/21 01/14/21 History Metoprolol Succinate [Toprol XL] 50 mg PO DAILY 01/14/21 01/14/21 History Nitroglycerin Sl Tabs [Nitrostat] 0.4 mg SUBLINGUAL Q5M PRN 01/14/21 01/14/21 History Torsemide [Demadex] 100 mg PO DAILY 01/14/21 01/14/21 History predniSONE See Taper PO DAILY 01/14/21 01/14/21 History Allergies Allergy/AdvReac Type Severity Reaction Status Date / Time No Known Allergies Allergy Verified 01/14/21 21:32 Physical Exam Vitals: Vital Signs Temp Pulse Resp BP Pulse Ox 01/15/21 12:04 99 F 01/15/21 12:00 107 H 25 H 91 L 01/15/21 11:00 110 H 28 H 124/53 90 L 01/15/21 10:00 108 H 27 H 124/53 91 L 01/15/21 09:46 114 H 01/15/21 09:40 116 H 01/15/21 09:39 116 H 01/15/21 09:34 111 H 01/15/21 08:00 98 25 H 116/66 94 L 01/15/21 07:40 99 18 116/66 94 L 01/15/21 06:54 98.3 F 106 H 20 105/43 87 L 01/15/21 05:56 100 01/15/21 05:47 108 H 01/15/21 05:20 97.6 F 111 H 26 H 140/66 86 L 01/15/21 01:14 98 F 92 18 112/57 89 L 01/14/21 23:20 97.6 F 88 16 107/48 91 L 01/14/21 21:14 100 18 109/69 88 L 01/14/21 20:25 90 01/14/21 20:11 91 20 130/57 93 L 01/14/21 20:10 90 01/14/21 19:54 98.3 F 92 20 114/50 96 Intake and Output 01/14/21 01/15/21 01/15/21 22:59 06:59 14:59 Intake Total 50 Output Total 800 Balance -800 50 Intake: Oral 50 Output: Urine 800 Other: Weight 122.47 kg GENERAL EXAM: Alert, very pleasant 70-year-old white male, on 6 L of oxygen the pulse ox of 91% comfortable in no apparent distress. HEAD: Normocephalic/atraumatic. EYES: Normal reaction of pupils, equal size. Conjunctiva pink, sclera white. NOSE: Clear with pink turbinates. THROAT: No erythema or exudates. NECK: No masses, no JVD, no thyroid enlargement, no adenopathy. CHEST: No chest wall deformity. Symmetrical expansion. LUNGS: Diminished air entry with end expiratory wheezes CVS: Regular rate and rhythm, normal S1 and S2, no gallops, no murmurs, no rubs ABDOMEN: Soft, nontender. No hepatosplenomegaly, normal bowel sounds, no guarding or rigidity. EXTREMITIES: No clubbing, 1+ lower extremity edema, no cyanosis, 2+ pulses and upper and lower extremities. MUSCULOSKELETAL: Muscle strength and tone normal. SPINE: No scoliosis or deformity SKIN: No rashes CENTRAL NERVOUS SYSTEM: Alert and oriented -3. No focal deficits, tone is normal in all 4 extremities. PSYCHIATRIC: Alert and oriented -3. Appropriate affect. Intact judgment and insight. Results - Laboratory Findings CBC and BMP: 01/15/21 03:15 01/15/21 03:15 PT/INR, D-dimer PT 30.5 sec (9.0-12.0) H 01/14/21 20:07 INR 3.2 (<1.2) H 01/14/21 20:07 Abnormal lab findings: Abnormal Labs 01/14/21 01/14/21 01/14/21 20:07 20:07 20:07 WBC 14.5 H RBC 3.70 L Hgb 11.1 L Hct 36.8 L MCHC 30.1 L Neutrophils # 12.9 H Lymphocytes # PT 30.5 H INR 3.2 H APTT 34.8 H Sodium 133 L Potassium 6.7 H* Chloride 90 L Carbon Dioxide 35 H BUN 71 H Creatinine 2.53 H Glucose 218 H Plasma Lactic Acid Jesus Calcium 7.4 L Total Protein 5.6 L 01/14/21 01/14/21 01/15/21 20:07 22:06 03:15 WBC 15.4 H RBC 3.69 L Hgb 11.3 L Hct 36.9 L MCHC 30.5 L Neutrophils # 14.6 H Lymphocytes # 0.6 L PT INR APTT Sodium Potassium 6.0 H Chloride Carbon Dioxide BUN Creatinine Glucose Plasma Lactic Acid Jesus 2.1 H* Calcium Total Protein 01/15/21 03:15 WBC RBC Hgb Hct MCHC Neutrophils # Lymphocytes # PT INR APTT Sodium 135 L Potassium 5.7 H Chloride 91 L Carbon Dioxide 36 H BUN 66 H Creatinine 2.31 H Glucose 203 H Plasma Lactic Acid Jesus Calcium 7.6 L Total Protein 5.8 L - Diagnostic Findings Chest x-ray: report reviewed, image reviewed Assessment and Plan Plan: Assessment: #1. Acute on chronic hypoxic rest she failure related to acute exacerbation of COPD, COVID 19 PCR was negative #2. Acute kidney injury #3. Hyperkalemia related to ZABRINA, patient was given a dose of Kayexalate, it has improved from 6.7 down to 5.7 #4. Paroxysmal A. fib on Coumadin, currently in sinus mechanism, with previous history of cardiac ablation #5. Advanced COPD with chronic hypoxic respiratory failure, patient wears 4 L of oxygen on a regular basis #6. Chronic CHF, unspecified #7. Hypertension #8. Hyperlipidemia #9. Osteoarthritis #10. Former smoker #11. Cataracts Plan: We will switch to oral prednisone to light Solu-Medrol 60 mg every 6 hours, will Pulmicort and Perforomist, continue DuoNeb, continue antibiotics. Follow-up labs including electrolytes, serum potassium, renal profile We will continue to follow patient's clinical course and make further recommendations I performed a history & physical examination of the patient and discussed their management with my nurse practitioner, Chasity Wheeler. I reviewed the nurse practitioner's note and agree with the documented findings and plan of care. Lung sounds are positive for diminished breath sounds The findings and the impression was discussed with the patient. I attest to the documentation by the nurse practitioner. Time with Patient: Greater than 30
[2021-01-15] MEDS: methylPREDNISolone SOD SUCCI 125 MG/2 ML VIAL IV SCH ×3 (14:56→23:15)
[2021-01-15 16:20] LABS: Chol/HDL Ratio 2.12; LDL Cholesterol,Calculated 53.4 mg/dL (0.0-131.0); VLDL Calculation 12.6 mg/dL (5.00-40.00)
[2021-01-15] MEDS ORDERED: WARFARIN 7.5 MG TAB PO ONE (18:00)
--- NOTE | 2021-01-15 18:44 | ECHOF ---
Referral Reason:LV function, SOB, chest pain MEASUREMENTS -------- HEIGHT: 175.3 cm WEIGHT: 122.5 kg BP: 116/66 IVSd: 1.8 cm (0.6 - 1.1) LVIDd: 3.9 cm (3.9 - 5.3) LVPWd: 1.3 cm (0.6 - 1.1) EDV(Teich): 65 ml IVSs: 1.7 cm LVIDs: 2.5 cm LVPWs: 1.5 cm %IVS Thck: -7 % ESV(Teich): 22 ml EF(Teich): 65 % %FS: 35 % SV(Teich): 42 ml RVIDd: 5.5 cm (< 3.3) LALs A4C: 4.7 cm LAAs A4C: 15.5 cm LAESV A-L A4C: 43 ml LAESV MOD A4C: 40 ml Ao Diam: 4.1 cm (2.0 - 3.7) AV Cusp: 2.0 cm (1.5 - 2.6) MV E Spike: 1.23 m/s MV DecT: 138 ms MV Dec Lanier: 9.0 m/s MV A Spike: 0.76 m/s MV E/A Ratio: 1.63 MV PHT: 40 ms LVOT Vmax: 1.32 m/s LVOT maxP.92 mmHg AV Vmax: 1.67 m/s AV maxP.22 mmHg TR Vmax: 2.09 m/s TR maxP.55 mmHg FINDINGS -------- This was a technically difficult study with suboptimal views. The left ventricular size is normal. There is moderate concentric left ventricular hypertrophy. O verall left ventricular systolic function is normal with, an EF between 55 - 60 %. The right ventricle is severely enlarged. LA is midly dilated 29-33ml/m2. The right atrium was not well visualized. 5.0mg of Lumason was utilized for enhancement of images Interatrial and interventricular septum intact. The aortic valve was not well visualized. There is no evidence of aortic regurgitation. There is no evidence of aortic stenosis. The mitral valve was not well visualized. No mitral regurgitation. The tricuspid valve was not well visualized. Mild tricuspid regurgitation present. There is no ev idence of pulmonary hypertension. The right ventricular systolic pressure, as measured by Doppler, is {RVSP}. The pulmonic valve was not well visualized. There is no pulmonic regurgitation present. The aortic root size is normal. IVC Not well visulized. There is no pericardial effusion. CONCLUSIONS -------- 1. The left ventricular size is normal. 2. There is moderate concentric left ventricular hypertrophy. 3. Overall left ventricular systolic function is normal with, an EF between 55 - 60 %. 4. The right ventricle is severely enlarged. 5. LA is midly dilated 29-33ml/m2. 6. Mild tricuspid regurgitation present. COIL MACHINE OPERATOR: Lauren Lepe RDCS
--- NOTE | 2021-01-15 22:58 | P.PN ---
Progress Note - Text Progress Note Date: 01/15/21 History of presenting complaint: Patient is a 70-year-old male, follows with PCP Dr. Cali with a PMH of advanced COPD, chronic hypoxic respiratory failure on 4 L nasal cannula oxygen continuously at home, systolic CHF, hypertension, A. fib on Coumadin, and hyperlipidemia presented to the emergency room with complaints of gradually worsening shortness of breath. The patient is accompanied by his at the bedside. Patient reports that over the past few weeks, he has noticed that he now gets winded with even minimal exertion such as walking to the bathroom. He reports that even after resting, it takes him a lot longer to get back to his baseline after the above-mentioned exertion. She sleeps in a reclined position which is unchanged over the past few weeks. He reports some chest tightness with these episodes which resolves with rest. Also reports that his cough is now productive with more yellow-green phlegm than usual. He also reports long- standing unchanged lower extremity pitting edema bilaterally. Denied fevers at home. Also denied abdominal pain, nausea, vomiting, diarrhea, dizziness. In the emergency room a chest x-ray revealed mild subsegmental atelectasis bilateral bases. EKG revealed normal sinus rhythm at [address]/T-wave changes noted as reviewed by me. Laboratory evaluation was remarkable for WBC count 14.5, hemoglobin 11.1, INR 3.2, sodium 133, potassium 6.7 (hemolyzed), chloride 90, CO2 35, BUN 71, creatinine 2.53, lactic acid 2.1, troponin 0.012, coronavirus PCR negative, and proBNP 542. She was given nebulizer treatments and is being admitted to the hospital for further management. Admitted with a diagnosis of COPD exacerbation . Placed on bronchodilators and steroids Today: Breathing a bit better. Lower extremity edema. Slight cough. Did eat some Review of systems: Was done for constitutional, cardiovascular, GI, pulmonary. relevant finding as above Active Medications Albuterol/Ipratropium (Ipratropium-Albuterol 3 Ml Neb) 3 ml INHALATION QID [facility] Last Admin: 01/15/21 19:19 Dose: 3 ml Documented by: Albuterol/Ipratropium (Ipratropium-Albuterol 3 Ml Neb) 3 ml INHALATION RT-Q2H PRN PRN Reason: Shortness Of Breath Or Wheezing Last Admin: 01/15/21 22:08 Dose: 3 ml Documented by: Allopurinol (Allopurinol 100 Mg Tab) 100 mg PO DAILY [facility] Last Admin: 01/15/21 09:30 Dose: 100 mg Documented by: Amoxicillin/Clavulanate Potassium (Amoxic-Pot Clav 875-125mg 1 Each Tab) 1 each PO BID [facility] Last Admin: 01/15/21 22:22 Dose: 1 each Documented by: Atorvastatin Calcium (Atorvastatin 20 Mg Tab) 20 mg PO DAILY [facility] Last Admin: 01/15/21 09:30 Dose: 20 mg Documented by: Budesonide (Budesonide 1 Mg/2 Ml Nebu) 1 mg INHALATION RT-BID [facility] Last Admin: 01/15/21 19:20 Dose: 1 mg Documented by: Formoterol Fumarate (Formoterol Fumarate 20 Mcg/2 Ml Nebu) 20 mcg INHALATION RT-BID [facility] Last Admin: 01/15/21 19:19 Dose: 20 mcg Documented by: Methylprednisolone Sodium Succinate (Methylprednisolone Sod Succi 125 Mg/2 Ml Vial) 60 mg IV Q6HR [facility] Last Admin: 01/15/21 19:22 Dose: 60 mg Documented by: Metoprolol Succinate (Metoprolol Succinate (Er) 50 Mg Tab.Er.24h) 50 mg PO DAILY [facility] Last Admin: 01/15/21 09:30 Dose: 50 mg Documented by: Miscellaneous Information (Warfarin Per Pharmacy) 1 each MISCELLANE DIRECTED PRN; Protocol PRN Reason: Per Protocol Prednisone (Prednisone 20 Mg Tab) 40 mg PO DAILY [facility] Last Admin: 01/15/21 09:29 Dose: 40 mg Documented by: Torsemide (Torsemide 20 Mg Tab) 100 mg PO DAILY [facility] Last Admin: 01/15/21 07:45 Dose: 100 mg Documented by: On examination: VITAL SIGNS: 99, 110, 28, 124/53, 90% on 8 L GENERAL APPEARANCE: BMI 39.9, sitting up, slightly short of breath. HEENT: Normal external appearance of nose and ear. Oral cavity normal EYES: Pupils equal. Conjunctiva normal. NECK: JVD not raised. Mass not palpable. RESPIRATORY: Respiratory effort increased. Diminished breath sounds, prolonged expiration CARDIOVASCULAR: First and second sounds normal. Some edema. ABDOMEN: Soft. Liver and spleen not palpable. No tenderness. No mass palpable. PSYCHIATRY: Alert and oriented x3. Mood and affect normal. INVESTIGATIONS, reviewed in the clinical context: WBC 15.4 hemoglobin 11.3 platelets 324 potassium 5.7 bun 66 creatinine 2.31 Troponin I 2 negative LDL 53 2-D echocardiogram: Moderate concentric LVH. EF 55-60% right ventricle severely enlarged EKG tracing personally reviewed by me-normal sinus rhythm Chest x-ray film personally reviewed by me-right lung base atelectasis Plan: Acute COPD exacerbation, and a previous smoker, slow to respond -On IV Solu-Medrol, bronchodilators, inhaled steroids, pulmonary consultation CKD stage 3 -Monitor BMP for now. Consult nephrology. DC Motrin. Renal diet Hyperkalemia, due to ZABRINA -Patient received Kayexalate. Repeat dose. Stop Zestril. Follow potassium Alkalosis, may be due to over-diuresis and volume contraction -Monitor for now Leukocytosis, likely due to home oral prednisone use -Monitor for now Paroxysmal Afib, currently in sinus rhythm -C/w Coumadin Obesity BMI 39.9 -Weight loss measures and follow with PCP as outpatient Chronic cor pulmonale -Continue with diuretics Essential hypertension -Continue Toprol-XL. Hold off Zestril for now because of hyperkalemia Hyperlipidemia -Continue with Lipitor Primary osteoarthritis -Use analgesics when necessary Chronic hypoxic respiratory failure on home oxygen 4 L -Continue with oxygen Care was discussed with the patient. Questions answered. Follow-up with pulmonary and cardiology. Repeat labs
[2021-01-16] MEDS: IPRATROPIUM-ALBUTEROL 3 ML NEB INHALATION PRN (03:11)
[2021-01-16] MEDS: methylPREDNISolone SOD SUCCI 125 MG/2 ML VIAL IV SCH (05:39)
[2021-01-16 06:17] LABS: African American GFR (CKD) 41 (>60 ml/min/1.73 sqM); Anion Gap 7 mmol/L; Blood Urea Nitrogen 77 mg/dL (9-20); Calcium 7.9 mg/dL (8.4-10.2); Carbon Dioxide 39 mmol/L (22-30); Chloride 92 mmol/L (98-107); Glucose 152 mg/dL (74-99); Non-African American GFR(CKD) 35 (>60 ml/min/1.73 sqM); Potassium 5.5 mmol/L (3.5-5.1); Sodium 138 mmol/L (137-145)
[2021-01-16 06:19] LABS: INR 1.8 (<1.2); Prothrombin Time 18.1 sec (9.0-12.0)
[2021-01-16] MEDS: FORMOTEROL FUMARATE 20 MCG/2 ML NEBU INHALATION SCH ×2 (08:31→19:52)
[2021-01-16] MEDS: IPRATROPIUM-ALBUTEROL 3 ML NEB INHALATION SCH ×4 (08:31→19:52)
[2021-01-16] MEDS: BUDESONIDE 1 MG/2 ML NEBU INHALATION SCH ×2 (08:31→19:53)
[2021-01-16] MEDS: TORSEMIDE 20 MG TAB PO SCH (09:24)
[2021-01-16] MEDS: predniSONE 20 MG TAB PO SCH (09:24)
[2021-01-16] MEDS: METOPROLOL SUCCINATE (ER) 50 MG TAB.ER.24H PO SCH (09:24)
[2021-01-16] MEDS: AMOXIC-POT CLAV 875-125MG 1 EACH TAB PO SCH ×2 (09:24→19:23)
[2021-01-16] MEDS: ATORVASTATIN 20 MG TAB PO SCH (09:24)
[2021-01-16] MEDS: allopurinoL 100 MG TAB PO SCH (09:24)
[2021-01-16 12:06] LABS: ABG Base Excess 13.7 mmol/L; ABG Oxygen Saturation 88.1 % (94-97); ABG PH 7.24 (7.35-7.45); ABG PO2 61 mmHg (83-108); ABG TCO2 44 mmol/L (19-24); Allen Test Performed? Yes
[2021-01-16 12:27] LABS: ABG HCO3 41 mmol/L (21-25); ABG PCO2 96 mmHg (35-45)
--- NOTE | 2021-01-16 12:41 | P.PN ---
Subjective Progress Note Date: 01/16/21 Principal diagnosis: Acute on chronic hypoxic respiratory failure secondary to acute exacerbation of COPD. istory of present illness: This is a 70-year-old white male patient of Dr. Campos with extensive medical history, including chronic hypoxic respiratory failure related to advanced COPD, chronic CHF, hypertension, hyperlipidemia, atrial fibrillation, previous episode of pneumonia requiring intubation and mechanical ventilation, morbid obesity, f ormer smoker. Patient sees Dr. Quarles in the pulmonary clinic, however has not seen him in the office for the past 1 year. He has been mainly is following with this is a visiting physician, he states it has been harder for him to get to the office. He normally wears 4 L of oxygen on a regular basis. On 01/14/2021 patient presented to the emergency department with complaints of worsening dyspnea. He was given a prednisone taper and Augmentin on an outpatient basis, he has been compliant with this medications. He has been giving himself several nebulized treatments daily with no minimal or temporary relief. He was brought into the emergency department per EMS. He was given IV Solu-Medrol and breathing treatments. He denies any fever chills, no hemoptysis, no chest pain, he does have some increased swelling in his lower extremities. Has not had any COVID vaccination. His chest x-ray showed mild subsegmental atelectasis at the lung bases that appears to be new. COVID 19 with negative. White count was 14.5, hemoglobin is 11.1, INR is 3.2 and patient is on warfarin for history of A. fib, sodium is 133, potassium 6.7 which was treated with Kayexalate improved down to 5.7 this morning, BUN 71, creatinine is 2.53, patient has evidence of acute kidney injury, lactic acid was 2.1, LFTs were within normal limits, proBNP was 542, troponin was 0.012. Patient was started on breathing treatments and oral prednisone, he was given IV fluids and started on empiric antibiotics in the form of Augmentin. Patient was reevaluated today on 01/16/2021, remains on oxygen remains on multiple bronchodilators he is on prednisone and Solu-Medrol, and I went ahead and discontinued Solu-Medrol kept him on prednisone. He is on multiple bronchodilators, feeling better today compared to yesterday. Less shortness of breath but continues to have intermittent cough and wheezing. When I saw the patient earlier today, he was noted to be comfortable, however as I'm dictating on this patient, apparently an ABG was done in the last half hour and it showed a pO2 of 61 pCO2 of 96 pH of 7.4, hence I recommended immediate placement of this patient on BiPAP here placed on IPAP 14 EPAP of 6 FiO2 of 50%. I will go ahead and restart the patient on Solu-Medrol, and discontinue prednisone. Chest x-ray on admission showed mild subsegmental atelectasis. Objective - Vital Signs Vital signs: Vital Signs Temp 97.5 F L 01/16/21 04:18 Pulse 102 H 01/16/21 08:50 Resp 24 01/16/21 08:00 BP 133/72 01/16/21 04:18 Pulse Ox 88 L 01/16/21 04:18 Intake & Output 01/15/21 01/16/21 01/16/21 18:59 06:59 18:59 Intake Total 50 600 Balance 50 600 Weight 122.47 kg 111.5 kg Intake: Oral 50 600 Other: Voiding Method Bedside Commode Bedside Commode Urinal Urinal # Voids 2 - Exam GENERAL EXAM: Alert, very pleasant 70-year-old white male, on 6 L of oxygen the pulse ox of 91% comfortable in no apparent distress. HEAD: Normocephalic/atraumatic. EENT: PERRLA, EOMI, nonicteric, moist mucous membranes, no neck masses, no JVD, no stridor CHEST: No chest wall deformity. Symmetrical expansion. LUNGS: Diminished air entry , scattered rhonchi and wheezes on forced expiratory maneuver. CVS: Regular rate and rhythm, normal S1 and S2, no gallops, no murmurs, no rubs ABDOMEN: Obese, Soft, nontender. No hepatosplenomegaly, normal bowel sounds, no guarding or rigidity. EXTREMITIES: No clubbing, 1+ lower extremity edema, no cyanosis, 2+ pulses and upper and lower extremities. Noted to have intermittent myoclonic jerks in the left upper extremity and according the patient this is chronic. MUSCULOSKELETAL: Myoclonic jerks of the left upper extremity noted intermittently. Again the patient over this is a chronic problem. SPINE: No scoliosis or deformity SKIN: No rashes CENTRAL NERVOUS SYSTEM: Alert and oriented 3 no gross focal deficit PSYCHIATRIC: Normal mood, affect and normal mental status examination. - Labs CBC & Chem 7: 01/15/21 03:15 01/16/21 05:33 Labs: Abnormal Lab Results - Last 24 Hours (Table) 01/16/21 01/16/21 01/16/21 Range/Units 05:33 05:33 12:00 PT 18.1 H (9.0-12.0) sec INR 1.8 H (<1.2) ABG pH 7.24 L (7.35-7.45) ABG pCO2 96 H* (35-45) mmHg ABG pO2 61 L (83-108) mmHg ABG HCO3 41 H* (21-25) mmol/L ABG Total CO2 44 H (19-24) mmol/L ABG O2 Saturation 88.1 L (94-97) % Potassium 5.5 H (3.5-5.1) mmol/L Chloride 92 L (98-107) mmol/L Carbon Dioxide 39 H (22-30) mmol/L BUN 77 H (9-20) mg/dL Creatinine 1.90 H (0.66-1.25) mg/dL Glucose 152 H (74-99) mg/dL Calcium 7.9 L (8.4-10.2) mg/dL Assessment and Plan Assessment: Impression: Acute on chronic hypoxic and hypercapnic respiratory failure secondary to COPD. And acute exacerbation of COPD. Acute kidney injury. Acute hyperkalemia secondary to acute kidney injury. Paroxysmal atrial fibrillation. Benign essential hypertension. Degenerative joint disease. Chronic diastolic congestive heart failure Recommendation: Continue bronchodilators. Change nasal cannula to BiPAP. Patient will be placed on BiPAP of 14 and EPAP of 6 FiO2 of 50%. Continue cardiac meds, patient is to be seen by cardiology on consultation. Continue to monitor closely Patient had negative PCR for coronary virus. Will follow. Time with Patient: Less than 30
[2021-01-16] MEDS ORDERED: SODIUM POLYSTYRENE SULFONATE 15 GM/60 ML BOTTLE PO STA (12:54)
[2021-01-16] MEDS: methylPREDNISolone SOD SUCCI 40 MG/ML 1 ML VIAL IV SCH ×3 (13:00→23:47)
--- NOTE | 2021-01-16 15:02 | P.PN ---
Subjective Progress Note Date: 01/16/21 HISTORY OF PRESENT ILLNESS: 01/15/2021 This is a 70-year-old male with a past medical history significant for atrial fibrillation with previous ablation, CHF, COPD, hyperlipidemia, hypertension, home oxygen, and former nicotine dependence. Patient follows in the office with Dr. Saldivar. We have been asked to see the patient in consultation for congestive heart failure. Patient examined at the bedside this morning in the emergency room. Patient reports she has been having increased shortness of breath over the past few days. He also reports some intermittent chest pain and states he took a nitroglycerin yesterday. At the time of examination he currently denies chest pain. The patient was started on IV steroids and admitted to the hospital for further evaluation. EKG reveals sinus mechanism with no signs of acute ischemia Chest xray mild subsegmental atelectasis at the lung bases. This appears new compared to exam. Normal heart. Laboratory data: WBC 15.4. Hemoglobin 11.3. Platelet count 324. Sodium 135. Potassium 5.7. BUN 66. Creatinine 2.31. Troponin negative 1. Current home cardiac medications include Coumadin 10 mg Friday and Friday and 7.5 mg Friday. Most recent echocardiogram obtained in 2019 revealed ejection fraction 55-60%, trace mitral regurgitation and trace tricuspid regurgitation. Patient underwent stress testing in the office in 2017 revealing fixed perfusion defect in the inferior basal segment suggestive of soft tissue artifact 01/16/2021 Patient examined this morning. He is sitting up in the chair. Patient reports shortness of breath. Patient remains on oral Demadex. Creatinine 1.90 today down from 2.31 yesterday. Potassium remains elevated at 5.5. Echocardiogram completed reveals ejection fraction 55-60% with mild tricuspid regurgitation. PHYSICAL EXAM: VITAL SIGNS: Reviewed. GENERAL: Well-developed in no acute distress. HEENT: Head is normocephalic. Pupils are equal, round. Sclerae anicteric. Mucous membranes of the mouth are moist. Neck supple. No JVD or thyromegaly LUNGS: Respirations even and unlabored. Lungs diminished with expiratory wheezing noted. HEART: Regular rate and rhythm. S1 and S2 heard. ABDOMEN: Soft. Nondistended. Nontender. EXTREMITIES: Normal range of motion. No clubbing or cyanosis. Peripheral pulses intact. 2+ bilateral lower extremity edema NEUROLOGIC: Awake and alert. Oriented x 3. ASSESSMENT: Shortness of breath Acute exacerbation of COPD Chronic diastolic congestive heart failure, ejection fraction 55-60%, BNP 542 History of paroxysmal atrial fibrillation with previous ablation, on anticoagulation with Coumadin Chronic hypoxic respiratory failure, patient wears home O2 Hyperkalemia Acute kidney injury Leukocytosis Hypertension Hyperlipidemia Former nicotine dependence PLAN: Pulmonary following. Continue steroids per pulmonary. Continue home dose of Demadex. Patient also taking Lasix at home. Patient instructed to stop taking Lasix post discharge. Daily weights Accurate I&O Monitor kidney function. Patient may benefit from nephrology consultation Lisinopril on hold due to ZABRINA and hyperkalemia. If potassium is within normal limits tomorrow, we will resume his lisinopril Monitor INR. Continue anticoagulation with Coumadin Further recommendations pending patient's course Nurse practitioner note has been reviewed by physician. Signing provider agrees with the documented findings, assessment, and plan of care. Objective - Vital Signs Vital signs: Vital Signs Temp 97.7 F 01/16/21 12:55 Pulse 96 01/16/21 12:55 Resp 22 01/16/21 12:55 BP 141/76 01/16/21 12:55 Pulse Ox 88 L 01/16/21 12:55 Intake & Output 01/15/21 01/16/21 01/16/21 18:59 06:59 18:59 Intake Total 50 600 Balance 50 600 Weight 122.47 kg 111.5 kg Intake: Oral 50 600 Other: Voiding Method Bedside Commode Bedside Commode Urinal Urinal # Voids 2 - Labs CBC & Chem 7: 01/15/21 03:15 01/16/21 05:33 Labs: Abnormal Lab Results - Last 24 Hours (Table) 01/16/21 01/16/21 01/16/21 Range/Units 05:33 05:33 12:00 PT 18.1 H (9.0-12.0) sec INR 1.8 H (<1.2) ABG pH 7.24 L (7.35-7.45) ABG pCO2 96 H* (35-45) mmHg ABG pO2 61 L (83-108) mmHg ABG HCO3 41 H* (21-25) mmol/L ABG Total CO2 44 H (19-24) mmol/L ABG O2 Saturation 88.1 L (94-97) % Potassium 5.5 H (3.5-5.1) mmol/L Chloride 92 L (98-107) mmol/L Carbon Dioxide 39 H (22-30) mmol/L BUN 77 H (9-20) mg/dL Creatinine 1.90 H (0.66-1.25) mg/dL Glucose 152 H (74-99) mg/dL Calcium 7.9 L (8.4-10.2) mg/dL
--- NOTE | 2021-01-16 16:41 | US ---
EXAMINATION TYPE: US kidneys/renal and bladder DATE OF EXAM: 01/16/2021 COMPARISON: NONE CLINICAL HISTORY: RF. EXAM MEASUREMENTS: Right Kidney: 11.4 x 5.6 x 6.2 cm Left Kidney: 10.7 x 5.8 cm Technically difficult exam performed portably on patient having difficulty breathing. Patient's abdom en is edematous making visualization of kidneys difficult. Right Kidney: No hydronephrosis or masses seen Left Kidney: Very limited visualization, nondiagnostic Bladder: not seen, patient had just voided There is no evidence for hydronephrosis at this point in time. No nephrolithiasis is seen. No sofy s are identified. IMPRESSION: Limited study with no definite abnormality appreciated at this time.
[2021-01-16] MEDS ORDERED: WARFARIN 10 MG TAB PO SCH (18:00)
[2021-01-16] MEDS ORDERED: WARFARIN 10 MG TAB PO ONE (18:00)
--- NOTE | 2021-01-16 22:59 | CONS ---
CONSULTATION REASON FOR CONSULTATION: Renal failure. HISTORY OF PRESENT ILLNESS: Patient is a 70-year-old male who was admitted to the hospital on 01/14/2021 with complaints of shortness of breath. He has underlying COPD, maintained on 4 L nasal cannula at home. Patient also has a history of underlying atrial fibrillation, CHF. Upon admission he was noted to have a potassium of 6.7 and serum creatinine of 2.53. Previous labs show serum creatinine 1.4 in September of 2019 as well as August of 2019. Patient's COVID PCR was negative. His chest x-ray on admission showed mild subsegmental atelectasis. Pulmonary vasculature was normal. Blood pressure has not been significantly low, with systolic mostly around 130s now, but previously on admission it was about 107 to 109 mmHg. Patient has been voiding in a bedside urinal. He is currently maintained on oral Demadex 100 mg daily. He did receive Kayexalate for the hyperkalemia yesterday. PAST MEDICAL HISTORY: Chronic atrial fibrillation, CHF, COPD, hyperlipidemia, hypertension, osteoarthritis, history of pneumonia, CKD, creatinine 1.4 in September of 2019. PAST SURGICAL HISTORY: Right eye surgery, colonoscopy, cardiac ablation for atrial fibrillation, atrial flutter. SOCIAL HISTORY: Negative for smoking, drug abuse or alcohol abuse. MEDICATIONS: Medications prior to admission included Lipitor, Zestril, updraft treatments, Coumadin, Zyloprim, Augmentin, Lasix, Motrin, Toprol, nitro, Demadex, prednisone. ALLERGIES: NONE. REVIEW OF SYSTEMS: As per HPI. Other systems negative. PHYSICAL EXAMINATION: Patient is comfortable. He is sleepy but arousable. Not in any acute distress. Blood pressure noted to be 133/72, heart rate 96 per minute. He is afebrile. EXAMINATION OF THE HEART: S1 and S2. EXAMINATION OF LUNGS: Bilateral breath sounds are heard. Decreased breath sounds at bases. ABDOMEN: Soft, non-tender, obese. Examination of lower extremities shows no significant edema. [employer] exam cannot be examined, as patient is quite sleepy, but he has been moving all 4 extremities. LABS: Hemoglobin 11.3 yesterday. Sodium 138, potassium 5.5, chloride 92, BUN 77, serum creatinine 1.9. COVID PCR was negative. ASSESSMENT: 1. Acute kidney injury, possibly prerenal and also secondary to non-steroidal anti- inflammatories. Patient was taking Motrin at home. I will hold off on the Demadex for now. Check urinalysis and check ultrasound of the kidneys. 2. Hyperkalemia associated with acute kidney injury, use of NSAIDs prior to admission in the setting of use of ALFIE inhibitors and possibly some degree of hypotension as well. Rule out urine retention. 3. Chronic obstructive pulmonary disease with 4 L of oxygen at home. 4. History of congestive heart failure; ejection fraction noted on current echocardiogram as 55% to 60% with moderate concentric left ventricular hypertrophy, mostly diastolic. 5. Atrial fibrillation with controlled ventricular response. PLAN: Hold Demadex. Continue off of IV fluids. Maintain low-potassium diet. Check urinalysis. Check ultrasound of the kidneys. Repeat labs in a.m. Thank you for this consultation. Will continue to follow the patient with you during his hospitalization. LUCIAN / BERNARDO: [id number] /
--- NOTE | 2021-01-17 00:01 | P.PN ---
Progress Note - Text Progress Note Date: 01/16/21 History of presenting complaint: Patient is a 70-year-old male, follows with PCP Dr. Cali with a PMH of advanced COPD, chronic hypoxic respiratory failure on 4 L nasal cannula oxygen continuously at home, systolic CHF, hypertension, A. fib on Coumadin, and hyperlipidemia presented to the emergency room with complaints of gradually worsening shortness of breath. The patient is accompanied by his at the bedside. Patient reports that over the past few weeks, he has noticed that he now gets winded with even minimal exertion such as walking to the bathroom. He reports that even after resting, it takes him a lot longer to get back to his baseline after the above-mentioned exertion. She sleeps in a reclined position which is unchanged over the past few weeks. He reports some chest tightness with these episodes which resolves with rest. Also reports that his cough is now productive with more yellow-green phlegm than usual. He also reports long- standing unchanged lower extremity pitting edema bilaterally. Denied fevers at home. Also denied abdominal pain, nausea, vomiting, diarrhea, dizziness. In the emergency room a chest x-ray revealed mild subsegmental atelectasis bilateral bases. EKG revealed normal sinus rhythm at [address]/T-wave changes noted as reviewed by me. Laboratory evaluation was remarkable for WBC count 14.5, hemoglobin 11.1, INR 3.2, sodium 133, potassium 6.7 (hemolyzed), chloride 90, CO2 35, BUN 71, creatinine 2.53, lactic acid 2.1, troponin 0.012, coronavirus PCR negative, and proBNP 542. She was given nebulizer treatments and is being admitted to the hospital for further management. Admitted with a diagnosis of COPD exacerbation . Placed on bronchodilators and steroids Today: short of breath. Tired and lethargic. ABG ordered. Decreased oral intake Review of systems: Was done for constitutional, cardiovascular, GI, pulmonary. relevant finding as above Active Medications Albuterol/Ipratropium (Ipratropium-Albuterol 3 Ml Neb) 3 ml INHALATION QID [facility] Last Admin: 01/16/21 19:52 Dose: 3 ml Documented by: Albuterol/Ipratropium (Ipratropium-Albuterol 3 Ml Neb) 3 ml INHALATION RT-Q2H PRN PRN Reason: Shortness Of Breath Or Wheezing Last Admin: 01/16/21 03:11 Dose: 3 ml Documented by: Allopurinol (Allopurinol 100 Mg Tab) 100 mg PO DAILY [facility] Last Admin: 01/16/21 09:24 Dose: 100 mg Documented by: Amoxicillin/Clavulanate Potassium (Amoxic-Pot Clav 875-125mg 1 Each Tab) 1 each PO BID [facility] Last Admin: 01/16/21 19:23 Dose: 1 each Documented by: Atorvastatin Calcium (Atorvastatin 20 Mg Tab) 20 mg PO DAILY [facility] Last Admin: 01/16/21 09:24 Dose: 20 mg Documented by: Budesonide (Budesonide 1 Mg/2 Ml Nebu) 1 mg INHALATION RT-BID [facility] Last Admin: 01/16/21 19:53 Dose: 1 mg Documented by: Formoterol Fumarate (Formoterol Fumarate 20 Mcg/2 Ml Nebu) 20 mcg INHALATION RT-BID [facility] Last Admin: 01/16/21 19:52 Dose: 20 mcg Documented by: Methylprednisolone Sodium Succinate (Methylprednisolone Sod Succi 40 Mg/Ml 1 Ml Vial) 40 mg IV Q6HR [facility] Last Admin: 01/16/21 23:47 Dose: 40 mg Documented by: Metoprolol Succinate (Metoprolol Succinate (Er) 50 Mg Tab.Er.24h) 50 mg PO DAILY [facility] Last Admin: 01/16/21 09:24 Dose: 50 mg Documented by: Miscellaneous Information (Warfarin Per Pharmacy) 1 each MISCELLANE DIRECTED PRN; Protocol PRN Reason: Per Protocol On examination: VITAL SIGNS: 97.7, 96, 22, 141/76, on Ventimask GENERAL APPEARANCE: Laying in bed, tired, on Ventimask. HEENT: Normal external appearance of nose and ear. Oral cavity normal EYES: Pupils equal. Conjunctiva normal. NECK: JVD not raised. Mass not palpable. RESPIRATORY: Respiratory effort increased. Diminished breath sounds, prolonged expiration CARDIOVASCULAR: First and second sounds normal. Some edema. ABDOMEN: Soft. Liver and spleen not palpable. No tenderness. No mass palpable. PSYCHIATRY: Tired and lethargic arousable INVESTIGATIONS, reviewed in the clinical context: January 16: ABG-T8 7 0.24, pCO2 96, pO2 41. Potassium 5.5 creatinine 1.9 WBC 15.4 hemoglobin 11.3 platelets 324 potassium 5.7 bun 66 creatinine 2.31 Troponin I 2 negative LDL 53 2-D echocardiogram: Moderate concentric LVH. EF 55-60% right ventricle severely enlarged EKG tracing personally reviewed by me-normal sinus rhythm Chest x-ray film personally reviewed by me-right lung base atelectasis Plan: Acute COPD exacerbation, and a previous smoker, not improving -On IV Solu-Medrol, bronchodilators, inhaled steroids, pulmonary consultation CKD stage 3 -Monitor BMP for now. Consult nephrology. DC Motrin. Renal diet Acute kidney injury possibly ATN -IV fluids. Improving Hyperkalemia, due to ZABRINA -Patient received Kayexalate. Repeat dose. Stop Zestril. Follow potassium Alkalosis, may be due to over-diuresis and volume contraction -Monitor for now Leukocytosis, likely due to home oral prednisone use -Monitor for now Paroxysmal Afib, currently in sinus rhythm -C/w Coumadin Obesity BMI 39.9 -Weight loss measures and follow with PCP as outpatient Chronic cor pulmonale -Continue with diuretics Essential hypertension -Continue Toprol-XL. Hold off Zestril for now because of hyperkalemia Hyperlipidemia -Continue with Lipitor Primary osteoarthritis -Use analgesics when necessary Chronic hypoxic respiratory failure on home oxygen 4 L -Continue with oxygen Acute metabolic encephalopathy hypoxic Acute hypoxic and hypercapnic respiratory failure, severe -Put patient on BiPAP follow with pulmonary ABGs were ordered. Reviewed. Patient placed on BiPAP. Kayexalate ordered.
[2021-01-17] MEDS: methylPREDNISolone SOD SUCCI 40 MG/ML 1 ML VIAL IV SCH ×4 (05:41→23:57)
[2021-01-17] MEDS: ATORVASTATIN 20 MG TAB PO SCH (07:05)
[2021-01-17] MEDS: allopurinoL 100 MG TAB PO SCH (07:06)
[2021-01-17] MEDS: METOPROLOL SUCCINATE (ER) 50 MG TAB.ER.24H PO SCH (07:06)
[2021-01-17] MEDS: AMOXIC-POT CLAV 875-125MG 1 EACH TAB PO SCH ×2 (07:06→20:04)
[2021-01-17 07:43] LABS: Appearance,Urine Clear (Clear); Bilirubin,Urine Negative (Negative); Blood,Urine Negative (Negative); Color,Urine Light Yellow; Glucose,Urine (UA) Negative (Negative); Ketones,Urine Negative (Negative); Leukocyte Esterase,Urine Negative (Negative); Nitrite,Urine Negative (Negative); Protein,Urine Negative (Negative); Specific Gravity,Urine 1.005 (1.001-1.035); Urobilinogen,Urine <2.0 mg/dL (<2.0)
[2021-01-17 08:14] LABS: Prothrombin Time 19.9 sec (9.0-12.0)
[2021-01-17] MEDS: FORMOTEROL FUMARATE 20 MCG/2 ML NEBU INHALATION SCH ×2 (08:34→20:41)
[2021-01-17] MEDS: BUDESONIDE 1 MG/2 ML NEBU INHALATION SCH ×2 (08:35→20:37)
[2021-01-17] MEDS: IPRATROPIUM-ALBUTEROL 3 ML NEB INHALATION SCH ×4 (08:35→20:37)
--- NOTE | 2021-01-17 10:26 | P.PN ---
Subjective Progress Note Date: 01/17/21 Principal diagnosis: Acute on chronic hypoxic respiratory failure secondary to acute exacerbation of COPD. istory of present illness: This is a 70-year-old white male patient of Dr. Campos with extensive medical history, including chronic hypoxic respiratory failure related to advanced COPD, chronic CHF, hypertension, hyperlipidemia, atrial fibrillation, previous episode of pneumonia requiring intubation and mechanical ventilation, morbid obesity, f ormer smoker. Patient sees Dr. Quarles in the pulmonary clinic, however has not seen him in the office for the past 1 year. He has been mainly is following with this is a visiting physician, he states it has been harder for him to get to the office. He normally wears 4 L of oxygen on a regular basis. On 01/14/2021 patient presented to the emergency department with complaints of worsening dyspnea. He was given a prednisone taper and Augmentin on an outpatient basis, he has been compliant with this medications. He has been giving himself several nebulized treatments daily with no minimal or temporary relief. He was brought into the emergency department per EMS. He was given IV Solu-Medrol and breathing treatments. He denies any fever chills, no hemoptysis, no chest pain, he does have some increased swelling in his lower extremities. Has not had any COVID vaccination. His chest x-ray showed mild subsegmental atelectasis at the lung bases that appears to be new. COVID 19 with negative. White count was 14.5, hemoglobin is 11.1, INR is 3.2 and patient is on warfarin for history of A. fib, sodium is 133, potassium 6.7 which was treated with Kayexalate improved down to 5.7 this morning, BUN 71, creatinine is 2.53, patient has evidence of acute kidney injury, lactic acid was 2.1, LFTs were within normal limits, proBNP was 542, troponin was 0.012. Patient was started on breathing treatments and oral prednisone, he was given IV fluids and started on empiric antibiotics in the form of Augmentin. Patient was reevaluated today on 01/16/2021, remains on oxygen remains on multiple bronchodilators he is on prednisone and Solu-Medrol, and I went ahead and discontinued Solu-Medrol kept him on prednisone. He is on multiple bronchodilators, feeling better today compared to yesterday. Less shortness of breath but continues to have intermittent cough and wheezing. When I saw the patient earlier today, he was noted to be comfortable, however as I'm dictating on this patient, apparently an ABG was done in the last half hour and it showed a pO2 of 61 pCO2 of 96 pH of 7.4, hence I recommended immediate placement of this patient on BiPAP here placed on IPAP 14 EPAP of 6 FiO2 of 50%. I will go ahead and restart the patient on Solu-Medrol, and discontinue prednisone. Chest x-ray on admission showed mild subsegmental atelectasis. Reevaluated today on 01/17/2021, we are seeing this patient for acute exacerbation of COPD, acute on chronic hypoxia and hypercapnic respiratory failure. Patient required to be placed on BiPAP overnight, his gases reflected relative hypoxemia and hypercapnia with pCO2 was high as 90 and pH of 7.24. Patient is now back on nasal cannula, sitting, eating breakfast, tells me that he is slightly better today compared to yesterday. Labs today were reviewed, he had INR of 2.0, therapeutic. ABG from yesterday showed a pO2 of 61 pCO2 of 96 pH of 7.24 and this was on 4 L nasal cannula. Patient had ultrasound of the abdomen yesterday, there was no evidence of hydronephrosis or nephrolithiasis. Objective - Vital Signs Vital signs: Vital Signs Temp 98.1 F 01/17/21 04:30 Pulse 108 H 01/17/21 08:57 Resp 25 H 01/17/21 08:00 BP 163/79 01/17/21 04:30 Pulse Ox 86 L 01/17/21 04:30 Intake & Output 01/16/21 01/17/21 01/17/21 18:59 06:59 18:59 Intake Total 200 360 Output Total 400 Balance 200 -40 Weight 107 kg Intake: Oral 200 360 Output: Urine 400 Other: Voiding Method Bedside Commode Bedside Commode Urinal Urinal Urinal - Exam GENERAL EXAM: Alert, very pleasant 70-year-old white male, on 4 L nasal cannula, BiPAP is at bedside. HEAD: Normocephalic/atraumatic. EENT: PERRLA, EOMI, nonicteric, moist mucous membranes, no neck masses, no JVD, no stridor CHEST: No chest wall deformity. Symmetrical expansion. LUNGS: Diminished air entry , scattered rhonchi and wheezes on forced expiratory maneuver. CVS: Regular rate and rhythm, normal S1 and S2, no gallops, no murmurs, no rubs ABDOMEN: Obese, Soft, nontender. No hepatosplenomegaly, normal bowel sounds, no guarding or rigidity. EXTREMITIES: No clubbing, 1+ lower extremity edema, no cyanosis, 2+ pulses and upper and lower extremities. No myoclonic jerks were noted today. SPINE: No scoliosis or deformity SKIN: No rashes CENTRAL NERVOUS SYSTEM: Alert and oriented 3 no gross focal deficit PSYCHIATRIC: Normal mood, affect and normal mental status examination. - Labs CBC & Chem 7: 01/15/21 03:15 01/16/21 05:33 Labs: Abnormal Lab Results - Last 24 Hours (Table) 01/16/21 01/17/21 Range/Units 12:00 06:27 PT 19.9 H (9.0-12.0) sec INR 2.0 H (<1.2) ABG pH 7.24 L (7.35-7.45) ABG pCO2 96 H* (35-45) mmHg ABG pO2 61 L (83-108) mmHg ABG HCO3 41 H* (21-25) mmol/L ABG Total CO2 44 H (19-24) mmol/L ABG O2 Saturation 88.1 L (94-97) % Assessment and Plan Assessment: Impression: Acute on chronic hypoxic and hypercapnic respiratory failure secondary to COPD. And acute exacerbation of COPD. Acute kidney injury. Acute hyperkalemia secondary to acute kidney injury. Paroxysmal atrial fibrillation. Benign essential hypertension. Degenerative joint disease. Chronic diastolic congestive heart failure Recommendation: Continue bronchodilators. Alternate nasal cannula with BiPAP as needed. Continue methylprednisolone. Continue Coumadin. Continue Pulmicort and Perforomist. Continue Augmentin. Not ready for discharge planning at this point. Continue cardiac meds, patient is to be seen by cardiology on consultation. Patient had negative PCR for coronary virus. Will follow. Time with Patient: Less than 30
[2021-01-17 13:37] LABS: African American GFR (CKD) 44 (>60 ml/min/1.73 sqM); Blood Urea Nitrogen 93 mg/dL (9-20); Calcium 8.2 mg/dL (8.4-10.2); Chloride 90 mmol/L (98-107); Glucose 149 mg/dL (74-99); Non-African American GFR(CKD) 38 (>60 ml/min/1.73 sqM); Potassium 4.5 mmol/L (3.5-5.1); Sodium 141 mmol/L (137-145)
[2021-01-17 13:43] LABS: Anion Gap 7 mmol/L
[2021-01-17 13:50] LABS: Carbon Dioxide 44 mmol/L (22-30)
--- NOTE | 2021-01-17 15:40 | P.PN ---
Subjective HISTORY OF PRESENT ILLNESS: 01/15/2021 This is a 70-year-old male with a past medical history significant for atrial fibrillation with previous ablation, CHF, COPD, hyperlipidemia, hypertension, home oxygen, and former nicotine dependence. Patient follows in the office with Dr. Saldivar. We have been asked to see the patient in consultation for congestive heart failure. Patient examined at the bedside this morning in the em ergency room. Patient reports she has been having increased shortness of breath over the past few days. He also reports some intermittent chest pain and states he took a nitroglycerin yesterday. At the time of examination he currently denies chest pain. The patient was started on IV steroids and admitted to the hospital for further evaluation. EKG reveals sinus mechanism with no signs of acute ischemia Chest xray mild subsegmental atelectasis at the lung bases. This appears new compared to exam. Normal heart. Laboratory data: WBC 15.4. Hemoglobin 11.3. Platelet count 324. Sodium 135. Potassium 5.7. BUN 66. Creatinine 2.31. Troponin negative 1. Current home cardiac medications include Coumadin 10 mg Friday and Friday and 7.5 mg Friday. Most recent echocardiogram obtained in 2019 revealed ejection fraction 55-60%, trace mitral regurgitation and trace tricuspid regurgitation. Patient underwent stress testing in the office in 2017 revealing fixed perfusion defect in the inferior basal segment suggestive of soft tissue artifact 01/16/2021 Patient examined this morning. He is sitting up in the chair. Patient reports shortness of breath. Patient remains on oral Demadex. Creatinine 1.90 today down from 2.31 yesterday. Potassium remains elevated at 5.5. Echocardiogram completed reveals ejection fraction 55-60% with mild tricuspid regurgitation. 01/17/2021 Patient examined this morning at the bedside. Patient is confused this morning. He is wearing his bipap. Denies chest pain or pressure. Potassium 4.5. BUN 93. Creatinine 1.79. PHYSICAL EXAM: VITAL SIGNS: Reviewed. GENERAL: Well-developed in no acute distress. HEENT: Head is normocephalic. Pupils are equal, round. Sclerae anicteric. Mucous membranes of the mouth are moist. Neck supple. No JVD or thyromegaly LUNGS: Respirations even and unlabored. Lungs diminished with expiratory wheezing noted. HEART: Regular rate and rhythm. S1 and S2 heard. ABDOMEN: Soft. Nondistended. Nontender. EXTREMITIES: Normal range of motion. No clubbing or cyanosis. Peripheral pulses intact. 2+ bilateral lower extremity edema NEUROLOGIC: Awake and alert. Oriented x 3. ASSESSMENT: Shortness of breath Acute exacerbation of COPD Chronic diastolic congestive heart failure, ejection fraction 55-60%, BNP 542 History of paroxysmal atrial fibrillation with previous ablation, on anticoagulation with Coumadin Chronic hypoxic respiratory failure, patient wears home O2 Hyperkalemia Acute kidney injury Leukocytosis Hypertension Hyperlipidemia Former nicotine dependence PLAN: Pulmonary following. Continue steroids per pulmonary. Demadex placed on hold per Nephrology. Patient also taking Lasix at home. Patient instructed to stop taking Lasix post discharge. Lisinopril on hold due to ZABRINA and hyperkalemia. Resume when okay with nephrology. Monitor kidney function. Patient may benefit from nephrology consultation Monitor INR. Continue anticoagulation with Coumadin No further inpatient recommendations from a cardiac standpoint We will sign off. Please re-consult if needed Nurse practitioner note has been reviewed by physician. Signing provider agrees with the documented findings, assessment, and plan of care. Objective - Vital Signs Vital signs: Vital Signs Temp 98.1 F 01/17/21 12:45 Pulse 108 H 01/17/21 12:59 Resp 22 01/17/21 12:45 BP 158/78 01/17/21 12:45 Pulse Ox 89 L 01/17/21 12:45 Intake & Output 01/16/21 01/17/21 01/17/21 18:59 06:59 18:59 Intake Total 200 360 Output Total 400 Balance 200 -40 Weight 107 kg Intake: Oral 200 360 Output: Urine 400 Other: Voiding Method Bedside Commode Bedside Commode Urinal Urinal Urinal - Labs CBC & Chem 7: 01/15/21 03:15 01/17/21 12:27 Labs: Abnormal Lab Results - Last 24 Hours (Table) 01/17/21 01/17/21 Range/Units 06:27 12:27 PT 19.9 H (9.0-12.0) sec INR 2.0 H (<1.2) Chloride 90 L (98-107) mmol/L Carbon Dioxide 44 H* (22-30) mmol/L BUN 93 H (9-20) mg/dL Creatinine 1.79 H (0.66-1.25) mg/dL Glucose 149 H (74-99) mg/dL Calcium 8.2 L (8.4-10.2) mg/dL
[2021-01-17] MEDS ORDERED: WARFARIN 7.5 MG TAB PO ONE (18:00)
--- NOTE | 2021-01-17 19:53 | PN ---
PROGRESS NOTE Patient is seen for followup for acute kidney injury. This morning he is more awake. He denies any significant complaints. The patient has been voiding. Urine output is not accurately charted. Currently not on any IV fluids or diuretics. Serum creatinine has improved from 1.9-1.79 mg/dL and it was 2.53 on initial admission. Previous creatinine at 1.4 in 2019. EXAMINATION: Today blood pressure 158/78, heart rate 104 per minute, patient is afebrile. Examination of the heart S1, S2. Examination of the lungs, decreased breath sounds at bases. Abdomen is soft. Morbidly obese. Examination lower extremities shows edema 1+ bilaterally. [employer] exam shows patient moving all four extremities. He is awake, following commands. LAB: Show sodium 141, potassium 4.5, chloride 90, CO2 44, BUN 93, creatinine 1.79. ASSESSMENT: 1. Acute kidney injury secondary to NSAIDs as well as possibly prerenal. The patient was on Motrin at home. His Demadex was held yesterday. Serum creatinine continues to improve. UA is completely benign and ultrasound of the kidneys shows no evidence of hydronephrosis. 2. Chronic obstructive pulmonary disease with exacerbation. 3. Hyperkalemia associated with acute kidney injury, use of NSAIDs in the setting of use of ALFIE inhibitors as well, currently improved. 4. History of congestive heart failure, diastolic heart failure with ejection fraction 50-60% on previous echocardiogram. 5. Atrial fibrillation with controlled ventricular response. PLAN: Continue off IV fluids. Continue off Demadex. We can resume Demadex by tomorrow as long as renal function continues to improve. Chest x-ray from 01/14/2021 did not show any significant pulmonary vascular congestion. We can repeat a chest x-ray tomorrow. MMODL / IJN: [id number] /
--- NOTE | 2021-01-17 22:42 | P.PN ---
Progress Note - Text Progress Note Date: 01/17/21 History of presenting complaint: Patient is a 70-year-old male, follows with PCP Dr. Cali with a PMH of advanced COPD, chronic hypoxic respiratory failure on 4 L nasal cannula oxygen continuously at home, systolic CHF, hypertension, A. fib on Coumadin, and hyperlipidemia presented to the emergency room with complaints of gradually worsening shortness of breath. The patient is accompanied by his at the bedside. Patient reports that over the past few weeks, he has noticed that he now gets winded with even minimal exertion such as walking to the bathroom. He reports that even after resting, it takes him a lot longer to get back to his baseline after the above-mentioned exertion. She sleeps in a reclined position which is unchanged over the past few weeks. He reports some chest tightness with these episodes which resolves with rest. Also reports that his cough is now productive with more yellow-green phlegm than usual. He also reports long- standing unchanged lower extremity pitting edema bilaterally. Denied fevers at home. Also denied abdominal pain, nausea, vomiting, diarrhea, dizziness. In the emergency room a chest x-ray revealed mild subsegmental atelectasis bilateral bases. EKG revealed normal sinus rhythm at [address]/T-wave changes noted as reviewed by me. Laboratory evaluation was remarkable for WBC count 14.5, hemoglobin 11.1, INR 3.2, sodium 133, potassium 6.7 (hemolyzed), chloride 90, CO2 35, BUN 71, creatinine 2.53, lactic acid 2.1, troponin 0.012, coronavirus PCR negative, and proBNP 542. She was given nebulizer treatments and is being admitted to the hospital for further management. Admitted with a diagnosis of COPD exacerbation . Placed on bronchodilators and steroids. Patient also had hypoxic encephalopathy. Blood gases showed CO2 retention. Swished over to BiPAP. Today: Bit more awake. Short of breath. Using a BiPAP. Tired Review of systems: Was done for constitutional, cardiovascular, GI, pulmonary. relevant finding as above Active Medications Albuterol/Ipratropium (Ipratropium-Albuterol 3 Ml Neb) 3 ml INHALATION QID WADE Last Admin: 01/17/21 20:37 Dose: 3 ml Documented by: Albuterol/Ipratropium (Ipratropium-Albuterol 3 Ml Neb) 3 ml INHALATION RT-Q2H PRN PRN Reason: Shortness Of Breath Or Wheezing Last Admin: 01/16/21 03:11 Dose: 3 ml Documented by: Allopurinol (Allopurinol 100 Mg Tab) 100 mg PO DAILY [facility] [place] Last Admin: 01/17/21 07:06 Dose: 100 mg Documented by: Amoxicillin/Clavulanate Potassium (Amoxic-Pot Clav 875-125mg 1 Each Tab) 1 each PO BID [facility] [place] Last Admin: 01/17/21 20:04 Dose: 1 each Documented by: Atorvastatin Calcium (Atorvastatin 20 Mg Tab) 20 mg PO DAILY [facility] [place] Last Admin: 01/17/21 07:05 Dose: 20 mg Documented by: Budesonide (Budesonide 1 Mg/2 Ml Nebu) 1 mg INHALATION RT-BID [facility] [place] Last Admin: 01/17/21 20:37 Dose: 1 mg Documented by: Formoterol Fumarate (Formoterol Fumarate 20 Mcg/2 Ml Nebu) 20 mcg INHALATION RT-BID [facility] [place] Last Admin: 01/17/21 20:41 Dose: 20 mcg Documented by: Methylprednisolone Sodium Succinate (Methylprednisolone Sod Succi 40 Mg/Ml 1 Ml Vial) 40 mg IV Q6HR [facility] [place] Last Admin: 01/17/21 17:01 Dose: 40 mg Documented by: Metoprolol Succinate (Metoprolol Succinate (Er) 50 Mg Tab.Er.24h) 50 mg PO DAILY [facility] [place] Last Admin: 01/17/21 07:06 Dose: 50 mg Documented by: Miscellaneous Information (Warfarin Per Pharmacy) 1 each MISCELLANE DIRECTED PRN; Protocol PRN Reason: Per Protocol On examination: VITAL SIGNS: 98.1, 108, 22, and 58 x 78, 89% on 4 L GENERAL APPEARANCE: Sitting up with a BiPAP, short of breath HEENT: Normal external appearance of nose and ear. Oral cavity normal EYES: Pupils equal. Conjunctiva normal. NECK: JVD not raised. Mass not palpable. RESPIRATORY: Respiratory effort increased. Diminished breath sounds, prolonged expiration CARDIOVASCULAR: First and second sounds normal. Some edema. ABDOMEN: Soft. Liver and spleen not palpable. No tenderness. No mass palpable. PSYCHIATRY: Tired, awake answering questions INVESTIGATIONS, reviewed in the clinical context: January 17: INR 2.0 potassium 4.5 creatinine 1.79 January 16: ABG-T8 7 0.24, pCO2 96, pO2 41. Potassium 5.5 creatinine 1.9 WBC 15.4 hemoglobin 11.3 platelets 324 potassium 5.7 bun 66 creatinine 2.31 Troponin I 2 negative LDL 53 2-D echocardiogram: Moderate concentric LVH. EF 55-60% right ventricle severely enlarged EKG tracing personally reviewed by me-normal sinus rhythm Chest x-ray film personally reviewed by me-right lung base atelectasis Plan: Acute COPD exacerbation, in a previous smoker, slow to respond -On IV Solu-Medrol, bronchodilators, inhaled steroids, CKD stage 3, likely from nephrosclerosis -Monitor BMP for now. Consult nephrology. DC Motrin. Renal diet Acute kidney injury possibly ATN -IV fluids. Improving. Creatinine from 2.5 and patient now down to 1.79 Hyperkalemia, due to ZABRINA -Patient received Kayexalate. Repeat dose. Stop Zestril. Improved Alkalosis, may be due to over-diuresis and volume contraction -Monitor for now Leukocytosis, likely due to home oral prednisone use -Monitor for now Paroxysmal Afib, currently in sinus rhythm -C/w Coumadin Obesity BMI 39.9 -Weight loss measures and follow with PCP as outpatient Chronic cor pulmonale -Continue with diuretics Essential hypertension -Continue Toprol-XL. Hold off Zestril for now because of hyperkalemia Hyperlipidemia -Continue with Lipitor Primary osteoarthritis -Use analgesics when necessary Chronic hypoxic respiratory failure on home oxygen 4 L -Continue with oxygen Acute hypoxic metabolic encephalopathy hypoxic-slowly improving Acute hypoxic and hypercapnic respiratory failure, severe -Responding well to BiPAP Some improvement. Discussed with the patient. Encourage oral intake. Follow with pulmonary.
[2021-01-18] MEDS: methylPREDNISolone SOD SUCCI 40 MG/ML 1 ML VIAL IV SCH ×4 (05:08→23:27)
[2021-01-18 05:42] LABS: African American GFR (CKD) 52 (>60 ml/min/1.73 sqM); Blood Urea Nitrogen 77 mg/dL (9-20); Calcium 8.6 mg/dL (8.4-10.2); Chloride 92 mmol/L (98-107); Glucose 142 mg/dL (74-99); Non-African American GFR(CKD) 45 (>60 ml/min/1.73 sqM); Potassium 4.4 mmol/L (3.5-5.1); Sodium 141 mmol/L (137-145)
[2021-01-18 05:49] LABS: Anion Gap 5 mmol/L
[2021-01-18 05:57] LABS: Carbon Dioxide 44 mmol/L (22-30)
[2021-01-18] MEDS: IPRATROPIUM-ALBUTEROL 3 ML NEB INHALATION SCH ×4 (07:13→20:23)
[2021-01-18] MEDS: BUDESONIDE 1 MG/2 ML NEBU INHALATION SCH ×2 (07:13→20:23)
[2021-01-18] MEDS: FORMOTEROL FUMARATE 20 MCG/2 ML NEBU INHALATION SCH ×2 (07:13→20:23)
[2021-01-18] MEDS: AMOXIC-POT CLAV 875-125MG 1 EACH TAB PO SCH ×2 (09:11→20:33)
[2021-01-18] MEDS: ATORVASTATIN 20 MG TAB PO SCH (09:11)
[2021-01-18] MEDS: METOPROLOL SUCCINATE (ER) 50 MG TAB.ER.24H PO SCH (09:11)
[2021-01-18] MEDS: allopurinoL 100 MG TAB PO SCH (09:14)
[2021-01-18 09:38] LABS: INR 1.9 (<1.2)
--- NOTE | 2021-01-18 11:23 | P.PN ---
Subjective Progress Note Date: 01/18/21 Principal diagnosis: Acute on chronic hypoxic respiratory failure secondary to acute exacerbation of COPD. istory of present illness: This is a 70-year-old white male patient of Dr. Campos with extensive medical history, including chronic hypoxic respiratory failure related to advanced COPD, chronic CHF, hypertension, hyperlipidemia, atrial fibrillation, previous episode of pneumonia requiring intubation and mechanical ventilation, morbid obesity, f ormer smoker. Patient sees Dr. Quarles in the pulmonary clinic, however has not seen him in the office for the past 1 year. He has been mainly is following with this is a visiting physician, he states it has been harder for him to get to the office. He normally wears 4 L of oxygen on a regular basis. On 01/14/2021 patient presented to the emergency department with complaints of worsening dyspnea. He was given a prednisone taper and Augmentin on an outpatient basis, he has been compliant with this medications. He has been giving himself several nebulized treatments daily with no minimal or temporary relief. He was brought into the emergency department per EMS. He was given IV Solu-Medrol and breathing treatments. He denies any fever chills, no hemoptysis, no chest pain, he does have some increased swelling in his lower extremities. Has not had any COVID vaccination. His chest x-ray showed mild subsegmental atelectasis at the lung bases that appears to be new. COVID 19 with negative. White count was 14.5, hemoglobin is 11.1, INR is 3.2 and patient is on warfarin for history of A. fib, sodium is 133, potassium 6.7 which was treated with Kayexalate improved down to 5.7 this morning, BUN 71, creatinine is 2.53, patient has evidence of acute kidney injury, lactic acid was 2.1, LFTs were within normal limits, proBNP was 542, troponin was 0.012. Patient was started on breathing treatments and oral prednisone, he was given IV fluids and started on empiric antibiotics in the form of Augmentin. Patient was reevaluated today on 01/16/2021, remains on oxygen remains on multiple bronchodilators he is on prednisone and Solu-Medrol, and I went ahead and discontinued Solu-Medrol kept him on prednisone. He is on multiple bronchodilators, feeling better today compared to yesterday. Less shortness of breath but continues to have intermittent cough and wheezing. When I saw the patient earlier today, he was noted to be comfortable, however as I'm dictating on this patient, apparently an ABG was done in the last half hour and it showed a pO2 of 61 pCO2 of 96 pH of 7.4, hence I recommended immediate placement of this patient on BiPAP here placed on IPAP 14 EPAP of 6 FiO2 of 50%. I will go ahead and restart the patient on Solu-Medrol, and discontinue prednisone. Chest x-ray on admission showed mild subsegmental atelectasis. Reevaluated today on 01/17/2021, we are seeing this patient for acute exacerbation of COPD, acute on chronic hypoxia and hypercapnic respiratory failure. Patient required to be placed on BiPAP overnight, his gases reflected relative hypoxemia and hypercapnia with pCO2 was high as 90 and pH of 7.24. Patient is now back on nasal cannula, sitting, eating breakfast, tells me that he is slightly better today compared to yesterday. Labs today were reviewed, he had INR of 2.0, therapeutic. ABG from yesterday showed a pO2 of 61 pCO2 of 96 pH of 7.24 and this was on 4 L nasal cannula. Patient had ultrasound of the abdomen yesterday, there was no evidence of hydronephrosis or nephrolithiasis. Reevaluated today on 01/18/2021, we are following up on this patient for his acute exacerbation of COPD and acute on chronic hypoxic and hypercapnic respiratory failure. Patient is doing better, breathing easier, intermittently requiring BiPAP, but he is now on 3 L nasal cannula, continues to have cough wheezing and shortness of breath intermittently. INR is 1.9. His bicarb is 44 BUN is 77 creatinine 1.57, steadily improving. Objective - Vital Signs Vital signs: Vital Signs Temp 97.8 F 01/18/21 04:41 Pulse 92 01/18/21 11:11 Resp 20 01/18/21 04:41 BP 117/68 01/18/21 04:41 Pulse Ox 90 L 01/18/21 04:41 Intake & Output 01/17/21 01/18/21 01/18/21 18:59 06:59 18:59 Intake Total 200 Output Total 400 Balance -200 Weight 107 kg Intake: Oral 200 Output: Urine 400 Other: Voiding Method Urinal Urinal # Voids 2 5 - Exam GENERAL EXAM: Alert, very pleasant 70-year-old white male, on 3 L nasal cannula, HEAD: Normocephalic/atraumatic. EENT: PERRLA, EOMI, nonicteric, moist mucous membranes, no neck masses, no JVD, no stridor CHEST: No chest wall deformity. Symmetrical expansion. LUNGS: Diminished air entry , scattered rhonchi and wheezes on forced expiratory maneuver. CVS: Regular rate and rhythm, normal S1 and S2, no gallops, no murmurs, no rubs ABDOMEN: Obese, Soft, nontender. No hepatosplenomegaly, normal bowel sounds, no guarding or rigidity. EXTREMITIES: No clubbing, 1+ lower extremity edema, no cyanosis, 2+ pulses and upper and lower extremities. No myoclonic jerks were noted today. SPINE: No scoliosis or deformity SKIN: No rashes CENTRAL NERVOUS SYSTEM: Alert and oriented 3 no gross focal deficit PSYCHIATRIC: Normal mood, affect and normal mental status examination. - Labs CBC & Chem 7: 01/15/21 03:15 01/18/21 04:32 Labs: Abnormal Lab Results - Last 24 Hours (Table) 01/17/21 01/18/21 01/18/21 Range/Units 12:27 04:32 08:08 PT 19.0 H (9.0-12.0) sec INR 1.9 H (<1.2) Chloride 90 L 92 L (98-107) mmol/L Carbon Dioxide 44 H* 44 H* (22-30) mmol/L BUN 93 H 77 H (9-20) mg/dL Creatinine 1.79 H 1.57 H (0.66-1.25) mg/dL Glucose 149 H 142 H (74-99) mg/dL Calcium 8.2 L (8.4-10.2) mg/dL Assessment and Plan Assessment: Impression: Acute on chronic hypoxic and hypercapnic respiratory failure secondary to COPD. And acute exacerbation of COPD. Acute kidney injury. Acute hyperkalemia secondary to acute kidney injury. Paroxysmal atrial fibrillation. Benign essential hypertension. Degenerative joint disease. Chronic diastolic congestive heart failure Recommendation: Continue bronchodilators. Alternate nasal cannula with BiPAP as needed. Continue methylprednisolone. Continue Coumadin. Continue Pulmicort and Perforomist. Continue Augmentin. Still not ready for discharge planning.. Patient had negative PCR for coronary virus. Will follow. Time with Patient: Less than 30
[2021-01-18] MEDS ORDERED: METOPROLOL TARTRATE 50 MG TAB PO STA (11:54)
[2021-01-18] MEDS: acetaZOLAMIDE 250 MG TAB PO SCH ×2 (12:04→20:33)
[2021-01-18] MEDS ORDERED: DILTIAZEM DRIP BOLUS FROM BAG 1 MG SOLN IV ONE ×2 (12:50→14:00)
[2021-01-18] MEDS ORDERED: DILTIAZEM 125 MG in SODIUM CHLORIDE 0.9% 100 ML IV SCH (14:00)
--- NOTE | 2021-01-18 14:10 | P.PN ---
Subjective Progress Note Date: 01/18/21 HISTORY OF PRESENT ILLNESS: 01/15/2021 This is a 70-year-old male with a past medical history significant for atrial fibrillation with previous ablation, CHF, COPD, hyperlipidemia, hypertension, home oxygen, and former nicotine dependence. Patient follows in the office with Dr. Saldivar. We have been asked to see the patient in consultation for congestive heart failure. Patient examined at the bedside this morning in the emergency room. Patient reports she has been having increased shortness of breath over the past few days. He also reports some intermittent chest pain and states he took a nitroglycerin yesterday. At the time of examination he currently denies chest pain. The patient was started on IV steroids and admitted to the hospital for further evaluation. EKG reveals sinus mechanism with no signs of acute ischemia Chest xray mild subsegmental atelectasis at the lung bases. This appears new compared to exam. Normal heart. Laboratory data: WBC 15.4. Hemoglobin 11.3. Platelet count 324. Sodium 135. Potassium 5.7. BUN 66. Creatinine 2.31. Troponin negative 1. Current home cardiac medications include Coumadin 10 mg Friday and Friday and 7.5 mg Friday. Most recent echocardiogram obtained in 2019 revealed ejection fraction 55-60%, trace mitral regurgitation and trace tricuspid regurgitation. Patient underwent stress testing in the office in 2017 revealing fixed perfusion defect in the inferior basal segment suggestive of soft tissue artifact 01/16/2021 Patient examined this morning. He is sitting up in the chair. Patient reports shortness of breath. Patient remains on oral Demadex. Creatinine 1.90 today down from 2.31 yesterday. Potassium remains elevated at 5.5. Echocardiogram completed reveals ejection fraction 55-60% with mild tricuspid regurgitation. 01/17/2021 Patient examined this morning at the bedside. Patient is confused this morning. He is wearing his bipap. Denies chest pain or pressure. Potassium 4.5. BUN 93. Creatinine 1.79. 01/18/2021 Cardiology was reconsulted today due to tachycardia. Patients heart rate in the 140-180s. Patient currently receiving metoprolol succinate 50mg daily. EKG re viewed revealing atrial flutter with RVR. Patient currently on 5N and per nursing, IVP medications can not be given on that unit. Patient ordered an additional 50mg metoprolol tartate x 1 dose. PHYSICAL EXAM: VITAL SIGNS: Reviewed. GENERAL: Well-developed in no acute distress. HEENT: Head is normocephalic. Pupils are equal, round. Sclerae anicteric. Mucous membranes of the mouth are moist. Neck supple. No JVD or thyromegaly LUNGS: Respirations even and unlabored. Lungs diminished with expiratory wheezing noted. HEART: Tachycardic. Irregular rate and rhythm. S1 and S2 heard. ABDOMEN: Soft. Nondistended. Nontender. EXTREMITIES: Normal range of motion. No clubbing or cyanosis. Peripheral pulses intact. 2+ bilateral lower extremity edema NEUROLOGIC: Awake and alert. Oriented x 3. ASSESSMENT: Shortness of breath Acute exacerbation of COPD Chronic diastolic congestive heart failure, ejection fraction 55-60%, BNP 542 New onset typical atrial flutter with RVR History of paroxysmal atrial fibrillation with previous ablation, on anticoagulation with Coumadin Acute on chronic hypoxic respiratory failure, patient wears home O2 Hyperkalemia, resolved Acute kidney injury Leukocytosis Hypertension Hyperlipidemia Former nicotine dependence PLAN: Pulmonary following. Demadex placed on hold per Nephrology. Patient also taking Lasix at home. Patient instructed to stop taking Lasix post discharge. Diamox started today per nephrology Lisinopril on hold due to ZABRINA and hyperkalemia (hyperkalemia since resolved). Resume when okay with nephrology. Monitor kidney function. Monitor INR. Continue anticoagulation with Coumadin Patient received an extra 50mg metoprolol tartrate Will increase metoprolol succinate to 100mg daily Begin cardizem drip at 5mg an hour after 10mg bolus Patient to be transferred to for closer monitoring Further recommendations pending patient course Nurse practitioner note has been reviewed by physician. Signing provider agrees with the documented findings, assessment, and plan of care. Objective - Vital Signs Vital signs: Vital Signs Temp 98 F 01/18/21 11:25 Pulse 158 H 01/18/21 11:25 Resp 24 01/18/21 11:25 BP 145/75 01/18/21 11:25 Pulse Ox 81 L 01/18/21 11:25 Intake & Output 01/17/21 01/18/21 01/18/21 18:59 06:59 18:59 Intake Total 200 Output Total 400 Balance -200 Weight 107 kg Intake: Oral 200 Output: Urine 400 Other: Voiding Method Urinal Urinal # Voids 2 5 - Labs CBC & Chem 7: 01/15/21 03:15 01/18/21 04:32 Labs: Abnormal Lab Results - Last 24 Hours (Table) 01/17/21 01/18/21 01/18/21 Range/Units 12:27 04:32 04:32 PT (9.0-12.0) sec INR (<1.2) Chloride 90 L 92 L (98-107) mmol/L Carbon Dioxide 44 H* 44 H* (22-30) mmol/L BUN 93 H 77 H (9-20) mg/dL Creatinine 1.79 H 1.57 H (0.66-1.25) mg/dL Glucose 149 H 142 H (74-99) mg/dL Calcium 8.2 L (8.4-10.2) mg/dL Magnesium 2.6 H (1.6-2.3) mg/dL 01/18/21 Range/Units 08:08 PT 19.0 H (9.0-12.0) sec INR 1.9 H (<1.2) Chloride (98-107) mmol/L Carbon Dioxide (22-30) mmol/L BUN (9-20) mg/dL Creatinine (0.66-1.25) mg/dL Glucose (74-99) mg/dL Calcium (8.4-10.2) mg/dL Magnesium (1.6-2.3) mg/dL
--- NOTE | 2021-01-18 17:15 | PN ---
PROGRESS NOTE Patient is seen for followup for acute kidney injury. Renal function has been improving. This morning patient was comfortable. He is not in any acute distress. Denied any significant chest pains or shortness of breath. Maintained on BiPAP. He has had voiding. Renal function has been improving. On examination today, blood pressure was 117/68, heart rate of 92 per minute. Patient is afebrile. EXAMINATION OF THE HEART: S1 and S2. EXAMINATION OF LUNGS: Bilateral breath sounds are heard. ABDOMEN: Soft, non-tender, obese. Examination of lower extremities shows no evidence of edema. MANAGER EXCHANGE exam is grossly intact. Labs show sodium 141, potassium 4.4, chloride 92. CO2 is 44, BUN 77, serum creatinine 1.57. ASSESSMENT: 1. Acute kidney injury secondary to non-steroidal anti-inflammatories and possibly prerenal component, currently improved. Currently off of fluids and diuretics. Demadex was held 2 days ago. The patient's UA is completely benign and there is no evidence of hydronephrosis on the ultrasound. 2. Chronic obstructive pulmonary disease with exacerbation, currently improving. 3. Hyperkalemia associated acute kidney injury, use of non-steroidal anti- inflammatories in the setting of use of ALFIE inhibitors as well, currently improved. 4. History of congestive heart failure, diastolic heart failure, ejection fraction 50% to 60% on previous echocardiogram, currently not in failure. 5. Atrial fibrillation with controlled ventricular response. It looks like later on during the day patient's heart rate did increase up to 150 and Cardiology was re- consulted. PLAN: Continue off of diuretics. Monitor renal function. Repeat labs in a.m. Avoid nephrotoxic medications. MMODL / IJN: [id number] /
[2021-01-18] MEDS ORDERED: WARFARIN 7.5 MG TAB PO ONE (18:00)
[2021-01-18] MEDS: LATANOPROST 0.005% OPHTH DROPS 2.5 ML BTL BOTH EYES SCH (20:34)
--- NOTE | 2021-01-18 22:36 | P.PN ---
Progress Note - Text Progress Note Date: 01/18/21 History of presenting complaint: Patient is a 70-year-old male, follows with PCP Dr. Cali with a PMH of advanced COPD, chronic hypoxic respiratory failure on 4 L nasal cannula oxygen continuously at home, systolic CHF, hypertension, A. fib on Coumadin, and hyperlipidemia presented to the emergency room with complaints of gradually worsening shortness of breath. The patient is accompanied by his at the bedside. Patient reports that over the past few weeks, he has noticed that he now gets winded with even minimal exertion such as walking to the bathroom. He reports that even after resting, it takes him a lot longer to get back to his baseline after the above-mentioned exertion. She sleeps in a reclined position which is unchanged over the past few weeks. He reports some chest tightness with these episodes which resolves with rest. Also reports that his cough is now productive with more yellow-green phlegm than usual. He also reports long- standing unchanged lower extremity pitting edema bilaterally. Denied fevers at home. Also denied abdominal pain, nausea, vomiting, diarrhea, dizziness. In the emergency room a chest x-ray revealed mild subsegmental atelectasis bilateral bases. EKG revealed normal sinus rhythm at [address]/T-wave changes noted as reviewed by me. Laboratory evaluation was remarkable for WBC count 14.5, hemoglobin 11.1, INR 3.2, sodium 133, potassium 6.7 (hemolyzed), chloride 90, CO2 35, BUN 71, creatinine 2.53, lactic acid 2.1, troponin 0.012, coronavirus PCR negative, and proBNP 542. She was given nebulizer treatments and is being admitted to the hospital for further management. Admitted with a diagnosis of COPD exacerbation . Placed on bronchodilators and steroids. Patient also had hypoxic encephalopathy. Blood gases showed CO2 retention. Swished over to BiPAP. Today: Sulfa patient this morning. Breathing was better. Sitting at the edge of the bed. Oral intake better. Late in the afternoon was called and patient's heart rate had gone up to 140s. EKG appeared to show atrial fibrillation. Cartilage was consulted. She was moved to the cardiology floor. Telemetry Review of systems: Was done for constitutional, cardiovascular, GI, pulmonary. relevant finding as above Active Medications Acetazolamide (Acetazolamide 250 Mg Tab) 250 mg PO BID [facility] Last Admin: 01/18/21 20:33 Dose: 250 mg Documented by: Albuterol/Ipratropium (Ipratropium-Albuterol 3 Ml Neb) 3 ml INHALATION QID [facility] Last Admin: 01/18/21 20:23 Dose: 3 ml Documented by: Albuterol/Ipratropium (Ipratropium-Albuterol 3 Ml Neb) 3 ml INHALATION RT-Q2H PRN PRN Reason: Shortness Of Breath Or Wheezing Last Admin: 01/16/21 03:11 Dose: 3 ml Documented by: Allopurinol (Allopurinol 100 Mg Tab) 100 mg PO DAILY [facility] Last Admin: 01/18/21 09:14 Dose: 100 mg Documented by: Amoxicillin/Clavulanate Potassium (Amoxic-Pot Clav 875-125mg 1 Each Tab) 1 each PO BID [facility] Last Admin: 01/18/21 20:33 Dose: 1 each Documented by: Atorvastatin Calcium (Atorvastatin 20 Mg Tab) 20 mg PO DAILY [facility] Last Admin: 01/18/21 09:11 Dose: 20 mg Documented by: Budesonide (Budesonide 1 Mg/2 Ml Nebu) 1 mg INHALATION RT-BID [facility] Last Admin: 01/18/21 20:23 Dose: 1 mg Documented by: Formoterol Fumarate (Formoterol Fumarate 20 Mcg/2 Ml Nebu) 20 mcg INHALATION RT-BID [facility] Last Admin: 01/18/21 20:23 Dose: 20 mcg Documented by: Diltiazem HCl 125 mg/ Sodium (Chloride) 125 mls @ 5 mls/hr IV .Q24H [facility] Last Admin: 01/18/21 14:20 Dose: 5 mg/hr, 5 mls/hr Documented by: Latanoprost (Latanoprost 0.005% Ophth Drops 2.5 Ml Btl) 1 drops BOTH EYES HS [facility] Last Admin: 01/18/21 20:34 Dose: 1 drops Documented by: Methylprednisolone Sodium Succinate (Methylprednisolone Sod Succi 40 Mg/Ml 1 Ml Vial) 40 mg IV Q6HR [facility] Last Admin: 01/18/21 18:00 Dose: 40 mg Documented by: Metoprolol Succinate (Metoprolol Succinate (Er) 100 Mg Tab.Er.24h) 100 mg PO DAILY [facility] Miscellaneous Information (Warfarin Per Pharmacy) 1 each MISCELLANE DIRECTED PRN; Protocol PRN Reason: Per Protocol On examination: VITAL SIGNS: 98, 88, 20, 117/68, 90% on nasal cannula GENERAL APPEARANCE: Sitting of the edge of the bed, less short of breath, nasal cannula HEENT: Normal external appearance of nose and ear. Oral cavity normal EYES: Pupils equal. Conjunctiva normal. NECK: JVD not raised. Mass not palpable. RESPIRATORY: Respiratory effort increased. Diminished breath sounds, prolonged expiration, mild wheezing CARDIOVASCULAR: First and second sounds normal. Some edema. ABDOMEN: Soft. Liver and spleen not palpable. No tenderness. No mass palpable. PSYCHIATRY: Awake answering questions though tired INVESTIGATIONS, reviewed in the clinical context: January 18: Potassium 4.4 bicarbonate 44 creatinine 1.57 INR 1.9 troponin I 0.019 TSH 1.1 January 17: INR 2.0 potassium 4.5 creatinine 1.79 January 16: ABG-T8 7 0.24, pCO2 96, pO2 41. Potassium 5.5 creatinine 1.9 WBC 15.4 hemoglobin 11.3 platelets 324 potassium 5.7 bun 66 creatinine 2.31 Troponin I 2 negative LDL 53 2-D echocardiogram: Moderate concentric LVH. EF 55-60% right ventricle severely enlarged EKG tracing personally reviewed by me-normal sinus rhythm Chest x-ray film personally reviewed by me-right lung base atelectasis Plan: Acute COPD exacerbation, in a previous smoker, slow to respond -On IV Solu-Medrol, bronchodilators, inhaled steroids, CKD stage 3, likely from nephrosclerosis -Monitor BMP . Consult nephrology. DC Motrin. Renal diet Acute kidney injury possibly ATN -IV fluids. Improving. Creatinine from 2.5 and patient down to 1. 57 Hyperkalemia, due to ZABRINA - Kayexalate. Repeat dose. Stop Zestril. Improved Alkalosis, may be due to over-diuresis and volume contraction -Monitor for now Leukocytosis, likely due to home oral prednisone use -Monitor for now Paroxysmal Afib, in sinus rhythm on presentation, today with a rapid ventricular rate -C/w Coumadin. [facility]red [facility] floor with telemetry. Cardiology consulted Obesity BMI 39.9 -Weight loss measures and follow with PCP as outpatient Chronic cor pulmonale -Continue with diuretics Essential hypertension -Continue Toprol-XL. Hold off Zestril for now because of hyperkalemia Hyperlipidemia -Continue with Lipitor Primary osteoarthritis -Use analgesics when necessary Chronic hypoxic respiratory failure on home oxygen 4 L -Continue with oxygen Acute hypoxic metabolic encephalopathy hypoxic-slowly improving Acute hypoxic and hypercapnic respiratory failure, severe -Responding well to BiPAP initially. Today changed over to 4 L nasal cannula This often patient went into rapid A. fib with increased rate. Cardiology consulted. Transferred to telemetry floor/cardiology
[2021-01-19 06:07] LABS: Glucose,Whole Blood 155 mg/dL (75-99)
[2021-01-19] MEDS: INSULIN ASPART (NovoLOG) 100 UNIT/ML VIAL SQ SCH ×4 (06:18→21:26)
[2021-01-19] MEDS: methylPREDNISolone SOD SUCCI 40 MG/ML 1 ML VIAL IV SCH ×4 (06:18→23:23)
[2021-01-19 06:24] LABS: INR 1.8 (<1.2); Prothrombin Time 18.2 sec (9.0-12.0)
[2021-01-19 06:42] LABS: Calcium 9.2 mg/dL (8.4-10.2); Potassium 5.6 mmol/L (3.5-5.1)
[2021-01-19] MEDS: BUDESONIDE 1 MG/2 ML NEBU INHALATION SCH ×2 (08:21→20:29)
[2021-01-19] MEDS: IPRATROPIUM-ALBUTEROL 3 ML NEB INHALATION SCH ×4 (08:21→20:29)
[2021-01-19] MEDS: FORMOTEROL FUMARATE 20 MCG/2 ML NEBU INHALATION SCH ×2 (08:21→20:29)
[2021-01-19] MEDS: acetaZOLAMIDE 250 MG TAB PO SCH ×2 (08:52→21:25)
[2021-01-19] MEDS: ATORVASTATIN 20 MG TAB PO SCH (08:52)
[2021-01-19] MEDS: AMOXIC-POT CLAV 875-125MG 1 EACH TAB PO SCH ×2 (08:52→21:25)
[2021-01-19] MEDS: allopurinoL 100 MG TAB PO SCH (08:52)
[2021-01-19] MEDS: METOPROLOL SUCCINATE (ER) 100 MG TAB.ER.24H PO SCH (08:52)
[2021-01-19 09:26] VITALS: BMI 29.7
[2021-01-19] MEDS ORDERED: DEXTROSE 50% SYRINGE 50 ML IVP STA (09:42)
[2021-01-19] MEDS ORDERED: INSULIN REGULAR 100 UNIT/ML VIAL IV ONE (09:43)
[2021-01-19] MEDS: SODIUM CHLORIDE 5% OPHTH DROPS 15 ML BTL RIGHT EYE SCH (10:07)
[2021-01-19 11:54] LABS: Glucose,Whole Blood 185 mg/dL (75-99)
--- NOTE | 2021-01-19 13:17 | P.PN ---
Subjective This is a 70-year-old male with a past medical history significant for atrial fibrillation with previous ablation, CHF, COPD, hyperlipidemia, hypertension, home oxygen, and former nicotine dependence. Patient follows in the office with Dr. Saldivar. We have been asked to see the patient in consultation for congestive heart failure. EKG revealed sinus mechanism with no signs of acute ischemia. Chest xray mild subsegmental atelectasis at the lung bases. This appears new compared to exam. Normal heart. Current home cardiac medications include Coumadin 10 mg Friday and Friday and 7.5 mg Friday. 01/16/2021 Echocardiogram completed reveals ejection fraction 55-60% with mild tricuspid regurgitation. On 01/18/2021 Cardiology was reconsulted due to tachycardia. Patients heart rate in the 140-180s. Patient recieved an extra dose of metoprolol tartrate 50mg, metoprolol succinate increased to 100 mg daily. EKG reviewed revealing atrial flutter with RVR. Patient currently on 5N and per nursing, IVP medications can not be given on that unit- Patient was transferred to cardiac stepdown unit. Patient started on cardizem drip at 5mg/hr, after 10mg bolus 01/19/2021: Patient seen and examined at bedside. No acute distress. BP 129/74 HR 77 afebrile, maintaining oxygen saturations 90%, sill requiring BiPAP. Telemetry tr acings indicate sinus mechanism heart rate in the 80s. Patient currently being maintained on atorvastatin 20 mg daily, Cardizem drip at 5 mg/hour, metoprolol succinate 100 mg daily. Sodium 143, potassium 5.6, serum creatinine 1.65 (1.57 yesteray), troponin negative PHYSICAL EXAM: VITAL SIGNS: Reviewed. GENERAL: Well-developed in no acute distress. HEENT: Head is normocephalic. Pupils are equal, round. Sclerae anicteric. Mucous membranes of the mouth are moist. Neck supple. No JVD or thyromegaly LUNGS: Respirations even and unlabored. Lungs diminished with expiratory wheezing noted in all lung limon. HEART: Regular rate and rhythm. S1 and S2 heard. ABDOMEN: Soft. Nondistended. Nontender. EXTREMITIES: Normal range of motion. No clubbing or cyanosis. Peripheral pulses intact. 1+ bilateral lower extremity edema NEUROLOGIC: Awake and alert. Oriented x 3. ASSESSMENT: Shortness of breath Acute exacerbation of COPD Chronic diastolic congestive heart failure, ejection fraction 55-60%, BNP 542 New onset typical atrial flutter with RVR History of paroxysmal atrial fibrillation with previous ablation, on anticoagulation with Coumadin Acute on chronic hypoxic respiratory failure, patient wears home O2 Hyperkalemia Acute kidney injury Leukocytosis Hypertension Hyperlipidemia Former nicotine dependence PLAN: Continue anticoagulation with Coumadin Start Cardizem 120mg PO daily Continue metoprolol succinate 100mg daily Pulmonary following Monitor kidney function. Monitor INR. Demadex placed on hold per Nephrology. Patient also taking Lasix at home. Patient instructed to stop taking Lasix post discharge. Lisinopril on hold due to ZABRINA and hyperkalemia. Resume when okay with nephrology. Further recommendations pending patient course Nurse practitioner note has been reviewed by physician. Signing provider agrees with the documented findings, assessment, and plan of care. Objective - Vital Signs Vital signs: Vital Signs Temp 98 F 01/18/21 11:25 Pulse 91 01/18/21 16:00 Resp 20 01/18/21 16:00 BP 153/66 01/18/21 16:00 Pulse Ox 93 L 01/18/21 16:00 Intake & Output 01/18/21 01/18/21 01/19/21 06:59 18:59 06:59 Intake Total 200 240 Output Total 400 250 Balance -200 -10 Weight 107 kg Intake: Oral 200 240 Output: Urine 400 250 Other: Voiding Method Urinal Urinal # Voids 5 1 # Bowel Movements 1 - Labs CBC & Chem 7: 01/15/21 03:15 01/19/21 05:21 Labs: Abnormal Lab Results - Last 24 Hours (Table) 01/18/21 01/18/21 01/18/21 Range/Units 04:32 04:32 08:08 PT 19.0 H (9.0-12.0) sec INR 1.9 H (<1.2) Chloride 92 L (98-107) mmol/L Carbon Dioxide 44 H* (22-30) mmol/L BUN 77 H (9-20) mg/dL Creatinine 1.57 H (0.66-1.25) mg/dL Glucose 142 H (74-99) mg/dL Magnesium 2.6 H (1.6-2.3) mg/dL
[2021-01-19] MEDS: DILTIAZEM CD 120 MG CAP.ER.24H PO SCH (13:24)
[2021-01-19 15:35] LABS: Glucose,Whole Blood 137 mg/dL (75-99)
--- NOTE | 2021-01-19 16:07 | CT ---
EXAMINATION TYPE: CT brain wo con for TPA DATE OF EXAM: 01/19/2021 COMPARISON: 01/08/2019 INDICATION: Left sided weakness. DLP: 1145.4 mGycm, Automated exposure control for dose reduction was used. CONTRAST: None CT of the brain is performed utilizing 3 mm thick sections through the posterior fossa and 3 mm thick sections through the remaining calvarium. Study is performed within 24 hours of arrival to the hosp [facility]. No abnormal hyperdensity is present to suggest an acute intracranial hemorrhage. No mass lesion is evident. No acute infarcts are evident. Is mild periventricular white matter hypodensity, likely on the basis of chronic white matter ischemic changes. Ventricles and sulci are appropriate for the patient age. There is a retention cyst within the right maxillary sinus. Left septal deviation is present. There i s fluid-filled left mastoid air cells. Correlate for left mastoiditis. Right mastoid air cells are cl ear. IMPRESSIONS: 1. Mild chronic appearing periventricular white matter ischemic changes. 2. Clinical correlation recommended for acute left mastoiditis.
[2021-01-19 17:07] LABS: Glucose,Whole Blood 152 mg/dL (75-99)
--- NOTE | 2021-01-19 17:08 | P.PN ---
Subjective Progress Note Date: 01/19/21 Principal diagnosis: Shortness of breath. Patient was reevaluated today on 01/16/2021, remains on oxygen remains on multiple bronchodilators he is on prednisone and Solu-Medrol, and I went ahead and discontinued Solu-Medrol kept him on prednisone. He is on multiple bronchodilators, feeling better today compared to yesterday. Less shortness of breath but continues to have intermittent cough and wheezing. When I saw the patient earlier today, he was noted to be comfortable, however as I'm dictating on this patient, apparently an ABG was done in the last half hour and it showed a pO2 of 61 pCO2 of 96 pH of 7.4, hence I recommended immediate placement of this patient on BiPAP here placed on IPAP 14 EPAP of 6 FiO2 of 50%. I will go ahead and restart the patient on Solu-Medrol, and discontinue prednisone. Chest x-ray on admission showed mild subsegmental atelectasis. Reevaluated today on 01/17/2021, we are seeing this patient for acute exacerbation of COPD, acute on chronic hypoxia and hypercapnic respiratory failure. Patient required to be placed on BiPAP overnight, his gases reflected relative hypoxemia and hypercapnia with pCO2 was high as 90 and pH of 7.24. Patient is now back on nasal cannula, sitting, eating breakfast, tells me that he is slightly better today compared to yesterday. Labs today were reviewed, he had INR of 2.0, therapeutic. ABG from yesterday showed a pO2 of 61 pCO2 of 96 pH of 7.24 and this was on 4 L nasal cannula. Patient had ultrasound of the abdomen yesterday, there was no evidence of hydronephrosis or nephrolithiasis. Reevaluated today on 01/18/2021, we are following up on this patient for his acute exacerbation of COPD and acute on chronic hypoxic and hypercapnic respiratory failure. Patient is doing better, breathing easier, intermittently requiring BiPAP, but he is now on 3 L nasal cannula, continues to have cough wheezing and shortness of breath intermittently. INR is 1.9. His bicarb is 44 BUN is 77 creatinine 1.57, steadily improving. Progress note dated January 19, 2021. 70-year-old white male, well-known to our service. The patient has a history of severe COPD. The patient was admitted a couple days ago, with a COPD exacerbation. Currently, he is feeling better. His breathing is improved. He has both hypoxemic and hypercapnic respiratory failure. Currently, he is on 5 L nasal cannula. Saturations are 90%. PT 18.2, INR 1.8, sodium 143, potassium 5.6, chlorides 98, CO2 39, anion gap 6, BUN 62, creatinine 1.65. A brain CT was done today, which did not show anything acute. Objective - Vital Signs Vital signs: Vital Signs Temp 97.4 F L 01/19/21 13:44 Pulse 86 01/19/21 16:05 Resp 24 01/19/21 16:05 BP 126/60 01/19/21 16:05 Pulse Ox 90 L 01/19/21 16:05 Intake & Output 01/18/21 01/19/21 01/19/21 18:59 06:59 18:59 Intake Total 240 500 Output Total 250 900 613 Balance -10 -900 -113 Weight 91.5 kg 91.5 kg Intake: Intake, IV Titration 20 Amount Diltiazem 125 mg In 20 Sodium Chloride 0.9% 100 ml @ 5 MG/HR 5 mls/hr IV .Q24H [facility] Rx#:[id number] Oral 240 480 Output: Urine 250 900 425 Post Void Residual 188 Other: Voiding Method Urinal Urinal Urinal # Voids 1 3 1 # Bowel Movements 1 - Exam GENERAL EXAM: Alert, very pleasant 70-year-old white male, on 3 L nasal cannula, HEAD: Normocephalic/atraumatic. EENT: PERRLA, EOMI, nonicteric, moist mucous membranes, no neck masses, no JVD, no stridor CHEST: No chest wall deformity. Symmetrical expansion. LUNGS: Diminished air entry , scattered rhonchi and wheezes on forced expiratory maneuver. CVS: Regular rate and rhythm, normal S1 and S2, no gallops, no murmurs, no rubs. Heart rate 87 bpm. ABDOMEN: Obese, Soft, nontender. No hepatosplenomegaly, normal bowel sounds, no guarding or rigidity. EXTREMITIES: No clubbing, 1+ lower extremity edema, no cyanosis, 2+ pulses and upper and lower extremities. No myoclonic jerks were noted today. SPINE: No scoliosis or deformity SKIN: No rashes CENTRAL NERVOUS SYSTEM: Alert and oriented 3 no gross focal deficit PSYCHIATRIC: Normal mood, affect and normal mental status examination. - Labs CBC & Chem 7: 01/15/21 03:15 01/19/21 05:21 Labs: Abnormal Lab Results - Last 24 Hours (Table) 01/19/21 01/19/21 01/19/21 Range/Units 05:21 05:21 05:57 PT 18.2 H (9.0-12.0) sec INR 1.8 H (<1.2) Potassium 5.6 H (3.5-5.1) mmol/L Carbon Dioxide 39 H (22-30) mmol/L BUN 62 H (9-20) mg/dL Creatinine 1.65 H (0.66-1.25) mg/dL Glucose 158 H (74-99) mg/dL POC Glucose (mg/dL) 155 H (75-99) mg/dL 01/19/21 01/19/21 Range/Units 11:52 15:33 PT (9.0-12.0) sec INR (<1.2) Potassium (3.5-5.1) mmol/L Carbon Dioxide (22-30) mmol/L BUN (9-20) mg/dL Creatinine (0.66-1.25) mg/dL Glucose (74-99) mg/dL POC Glucose (mg/dL) 185 H 137 H (75-99) mg/dL Assessment and Plan Assessment: Acute on chronic hypoxic and hypercapnic respiratory failure secondary to COPD exacerbation. Acute kidney injury. Acute hyperkalemia secondary to acute kidney injury. Paroxysmal atrial fibrillation. Benign essential hypertension. Degenerative joint disease. Chronic diastolic congestive heart failure Plan: Plan dated 01/19/2021. The patient's doing a bit better. We want him to continue on his bronchodilators, nasal cannula alternating with BiPAP, Solu-Medrol, Coumadin, Pulmicort and performist, Augmentin, as well as albuterol sulfate and ipratropium bromide. The patient tested negative by PCR for coronavirus. We will continue to follow. He should follow up with Dr. Quarles and our office post discharge. No additional recommendations are made. Prognosis is poor. Time with Patient: Less than 30
[2021-01-19 17:29] LABS: Calcium 9.3 mg/dL (8.4-10.2); Potassium 5.9 mmol/L (3.5-5.1); Total Bilirubin 0.5 mg/dL (0.2-1.3); Total Protein 6.2 g/dL (6.3-8.2)
[2021-01-19 17:35] LABS: INR 1.9 (<1.2); Partial Thromboplastin Time 26.4 sec (22.0-30.0); Prothrombin Time 18.5 sec (9.0-12.0)
[2021-01-19] MEDS ORDERED: WARFARIN 10 MG TAB PO ONE ×2 (18:00→19:00)
[2021-01-19] MEDS ORDERED: SODIUM POLYSTYRENE SULFONATE 15 GM/60 ML BOTTLE PO STA (18:35)
--- NOTE | 2021-01-19 18:43 | P.PN ---
Progress Note - Text Progress Note Date: 01/19/21 History of presenting complaint: Patient is a 70-year-old male, follows with PCP Dr. Cali with a PMH of advanced COPD, chronic hypoxic respiratory failure on 4 L nasal cannula oxygen continuously at home, systolic CHF, hypertension, A. fib on Coumadin, and hyperlipidemia presented to the emergency room with complaints of gradually worsening shortness of breath. The patient is accompanied by his at the bedside. Patient reports that over the past few weeks, he has noticed that he now gets winded with even minimal exertion such as walking to the bathroom. He reports that even after resting, it takes him a lot longer to get back to his baseline after the above-mentioned exertion. She sleeps in a reclined position which is unchanged over the past few weeks. He reports some chest tightness with these episodes which resolves with rest. Also reports that his cough is now productive with more yellow-green phlegm than usual. He also reports long- standing unchanged lower extremity pitting edema bilaterally. Denied fevers at home. Also denied abdominal pain, nausea, vomiting, diarrhea, dizziness. In the emergency room a chest x-ray revealed mild subsegmental atelectasis bilateral bases. EKG revealed normal sinus rhythm at [address]/T-wave changes noted as reviewed by me. Laboratory evaluation was remarkable for WBC count 14.5, hemoglobin 11.1, INR 3.2, sodium 133, potassium 6.7 (hemolyzed), chloride 90, CO2 35, BUN 71, creatinine 2.53, lactic acid 2.1, troponin 0.012, coronavirus PCR negative, and proBNP 542. She was given nebulizer treatments and is being admitted to the hospital for further management. Admitted with a diagnosis of COPD exacerbation . Placed on bronchodilators and steroids. Patient also had hypoxic encephalopathy. Blood gases showed CO2 retention. Swished over to BiPAP. Patient went into A. fib with rapid ventricular rate. Moved to the cardiology floor. Today: Patient has converted back to sinus rhythm. Some shortness of breath. On nasal cannula. Tired did eat some Review of systems: Was done for constitutional, cardiovascular, GI, pulmonary. relevant finding as above Active Medications Acetazolamide (Acetazolamide 250 Mg Tab) 250 mg PO BID [facility] Last Admin: 01/19/21 08:52 Dose: 250 mg Documented by: Albuterol/Ipratropium (Ipratropium-Albuterol 3 Ml Neb) 3 ml INHALATION QID [facility] Last Admin: 01/19/21 15:26 Dose: 3 ml Documented by: Albuterol/Ipratropium (Ipratropium-Albuterol 3 Ml Neb) 3 ml INHALATION RT-Q2H PRN PRN Reason: Shortness Of Breath Or Wheezing Last Admin: 01/16/21 03:11 Dose: 3 ml Documented by: Allopurinol (Allopurinol 100 Mg Tab) 100 mg PO DAILY [facility] Last Admin: 01/19/21 08:52 Dose: 100 mg Documented by: Amoxicillin/Clavulanate Potassium (Amoxic-Pot Clav 875-125mg 1 Each Tab) 1 each PO BID [facility] Last Admin: 01/19/21 08:52 Dose: 1 each Documented by: Aspirin (Aspirin 325 Mg Tab) 325 mg PO DAILY [facility] Atorvastatin Calcium (Atorvastatin 20 Mg Tab) 20 mg PO DAILY [facility] Last Admin: 01/19/21 08:52 Dose: 20 mg Documented by: Budesonide (Budesonide 1 Mg/2 Ml Nebu) 1 mg INHALATION RT-BID [facility] Last Admin: 01/19/21 08:21 Dose: 1 mg Documented by: Diltiazem HCl (Diltiazem Cd 120 Mg Cap.Er.24h) 120 mg PO DAILY [facility] Last Admin: 01/19/21 13:24 Dose: 120 mg Documented by: Formoterol Fumarate (Formoterol Fumarate 20 Mcg/2 Ml Nebu) 20 mcg INHALATION RT-BID [facility] Last Admin: 01/19/21 08:21 Dose: 20 mcg Documented by: Insulin Aspart (Insulin Aspart (Novolog) 100 Unit/Ml Vial) 0 unit SQ ACHS [facility]; Protocol Last Admin: 01/19/21 18:04 Dose: 2 unit Documented by: Latanoprost (Latanoprost 0.005% Ophth Drops 2.5 Ml Btl) 1 drops BOTH EYES HS [facility] Last Admin: 01/18/21 20:34 Dose: 1 drops Documented by: Methylprednisolone Sodium Succinate (Methylprednisolone Sod Succi 40 Mg/Ml 1 Ml Vial) 40 mg IV Q6HR [facility] Last Admin: 01/19/21 18:03 Dose: 40 mg Documented by: Metoprolol Succinate (Metoprolol Succinate (Er) 100 Mg Tab.Er.24h) 100 mg PO DAILY [facility] Last Admin: 01/19/21 08:52 Dose: 100 mg Documented by: Miscellaneous Information (Warfarin Per Pharmacy) 1 each MISCELLANE DIRECTED PRN; Protocol PRN Reason: Per Protocol Sodium Chloride (Sodium Chloride 5% Ophth Drops 15 Ml Btl) 1 drops RIGHT EYE DAILY [facility] Last Admin: 01/19/21 10:07 Dose: 1 drops Documented by: On examination: VITAL SIGNS: 97.4, 79, 24, 1 23 x 59, 90% on 5 L GENERAL APPEARANCE: Laying in bed, tired, short of breath is cannula HEENT: Normal external appearance of nose and ear. Oral cavity normal EYES: Pupils equal. Conjunctiva normal. NECK: JVD not raised. Mass not palpable. RESPIRATORY: Respiratory effort increased. Diminished breath sounds, prolonged expiration, mild wheezing CARDIOVASCULAR: First and second sounds normal. Some edema. ABDOMEN: Soft. Liver and spleen not palpable. No tenderness. No mass palpable. PSYCHIATRY: Answering questions, tired INVESTIGATIONS, reviewed in the clinical context: January 19: INR 1.9 potassium 5.9 creatinine 1.8 to January 18: Potassium 4.4 bicarbonate 44 creatinine 1.57 INR 1.9 troponin I 0.019 TSH 1.1 January 17: INR 2.0 potassium 4.5 creatinine 1.79 January 16: ABG-T8 7 0.24, pCO2 96, pO2 41. Potassium 5.5 creatinine 1.9 WBC 15.4 hemoglobin 11.3 platelets 324 potassium 5.7 bun 66 creatinine 2.31 Troponin I 2 negative LDL 53 2-D echocardiogram: Moderate concentric LVH. EF 55-60% right ventricle severely enlarged EKG tracing personally reviewed by me-normal sinus rhythm Chest x-ray film personally reviewed by me-right lung base atelectasis Plan: Acute COPD exacerbation, in a previous smoker, slow to respond -On IV Solu-Medrol, bronchodilators, inhaled steroids, CKD stage 3, likely from nephrosclerosis -Monitor BMP . Consult nephrology. ESTER Luna. Renal diet Acute kidney injury possibly ATN -IV fluids. Improving. Creatinine from 2.5 and patient down to 1. 57 Hyperkalemia, due to ZABRINA - Kayexalate. Repeat dose. Stop Zestril. Potassium was gone up again. Alkalosis, may be due to over-diuresis and volume contraction -Monitor for now Leukocytosis, likely due to home oral prednisone use -Monitor for now Paroxysmal Afib, in sinus rhythm on presentation, with a rapid ventricular rate on January 18. Back into sinus rhythm -C/w Coumadin. Cardiology consulted. Started on Cardizem CD 120 mg daily Obesity BMI 39.9 -Weight loss measures and follow with PCP as outpatient Chronic cor pulmonale -Continue with diuretics Essential hypertension -Continue Toprol-XL. Hold off Zestril for now because of hyperkalemia Hyperlipidemia -Continue with Lipitor Primary osteoarthritis -Use analgesics when necessary Chronic hypoxic respiratory failure on home oxygen 4 L -Continue with oxygen Acute hypoxic metabolic encephalopathy hypoxic-slowly improving Acute hypoxic and hypercapnic respiratory failure, severe -Responding well to BiPAP initially. Today changed over to 4 L nasal cannula Late this afternoon nurse noted that patient's left arm was a bit limp and patient rather drowsy. It was suspected possibly CO2 building up. In any case she had called a code stroke. Computed tomography scan of the brain was negative. Neurology was consulted. BiPAP was reordered.
[2021-01-19] MEDS ORDERED: ASPIRIN 325 MG TAB PO STA (18:56)
--- NOTE | 2021-01-19 19:38 | US ---
EXAMINATION TYPE: US carotid duplex BILAT DATE OF EXAM: 01/19/2021 COMPARISON: NONE CLINICAL HISTORY: code stroke 01/19/21. Stroke Limited exam due to pt sitting upright, heavy breathing, movement, and large pt body habitus EXAM MEASUREMENTS: RIGHT: Peak Systolic Velocity (PSV) cm/sec ----- Right CCA: 102.1 ----- Right ICA: 131.9 ----- Right ECA: 81.4 ICA/CCA ratio: 1.3 RIGHT: End Diastole cm/sec ----- Right CCA: 24.5 ----- Right ICA: 41.2 ----- Right ECA: 0.0 LEFT: Peak Systolic Velocity (PSV) cm/sec ----- Left CCA: 131.7 ----- Left ICA: 127.4 ----- Left ECA: 119.4 ICA/CCA ratio: 1.0 LEFT: End Diastole cm/sec ----- Left CCA: 43.1 ----- Left ICA: 32.1 ----- Left ECA: 0.0 VERTEBRALS (direction of flow): Right Vertebral: Unable to visualize Left Vertebral: Unable to visualize Slightly elevated velocities bilaterally, however no significant stenosis visualized IMPRESSION: 1. Mild elevation of the internal carotid artery velocities which would be compatible with 50-69% anders rowing. Significant plaquing to account for the velocity however is not evident. Criteria for Assigning % of Stenosis / Diameter reduction (Estimation based on the indirect measurements of the internal carotid artery velocities (ICA PSV). 1. Normal (no stenosis)=ICA PSV < 125 cm/s: ratio < 2.0: ICA EDV<40 cm/s. 2. Less than 50% stenosis=ICA PSV < 125 cm/s: ratio < 2.0: ICA EDV<40 cm/s. 3. 50 to 69% stenosis=ICA PSV of 125 to 230 cm/s: ration 2.0 ? 4.0: ICA EDV 40-100 cm/s. 4. Greater than 70% stenosis to near occlusion= ICA PSV > 230 cm/s: ratio > 4.0: ICA EDV > 100 cm/s. 5. Near occlusion= ICA PSV velocities may be low or undetectable: variable ratio and ICA EDV. 6. Total occlusion=unable to detect flow.
[2021-01-19 20:18] LABS: Glucose,Whole Blood 173 mg/dL (75-99)
--- NOTE | 2021-01-19 20:18 | PN ---
PROGRESS NOTE Patient is seen for followup for acute kidney injury. Patient's renal function had been improving, with creatinine going down from 2.5 to 1.6 mg/dL. However, it is his creatinine is up to 1.8 today. Patient did have atrial fibrillation with RVR and was transferred to [address] [place] [address], to telemetry floor. He had been on Demadex on initial admission, which was held, and patient was receiving IV fluids, which were later on discontinued. His potassium was elevated at 5.9. He did get a dose of Kayexalate and patient received IV insulin and D50 as well this morning. He has been voiding, and post-void residual was checked, which was not significantly elevated. Overall patient states he is feeling better. His mentation has improved and respiratory status has improved as well. He was admitted with COPD exacerbation. On examination today, blood pressure was 142/79, heart rate 88 per minute. Patient is afebrile. EXAMINATION OF THE HEART: S1 and S2. EXAMINATION OF LUNGS: Decreased breath sounds at bases. ABDOMEN: Soft, obese, non-tender. Examination of lower extremities shows trace edema bilaterally. [employer] exam is grossly intact. Labs show sodium 140, potassium 5.9, BUN 62, serum creatinine 1.8. CO2 is 37. UA is completely benign. Ultrasound done on 01/16/2021 was unremarkable. ASSESSMENT: 1. Acute kidney injury, initially prerenal, and it had improved. Renal function has worsened again, most likely secondary to hemodynamic instability with atrial fibrillation with RVR. UA is completely benign and there is no evidence of obstruction on the ultrasound. Post-voidal residual was 188 mL. Patient is not maintained on any nephrotoxic medications. I will continue off of IV fluids unless renal function is further worsened. Tomorrow we can add gentle IV hydration. 2. Hyperkalemia associated with acute kidney injury. Serum potassium had improved post admission but has increased again, with worsening renal function. Patient was on ALFIE inhibitors, currently off of them. He also had nonsteroidal anti- inflammatory agents on his medication list. 3. History of diastolic heart failure, ejection fraction 50% to 60%. 4. Atrial fibrillation with rapid ventricular response. PLAN: Repeat labs in a.m. Consider adding IV fluids if renal function is worse tomorrow. Repeat chest x-ray in a.m. as well. Continue to hold off on ALFIE inhibitors. Blood sugars are fairly well controlled. Patient is advised to avoid use of NSAIDs. MMODL / IJN: [id number] /
--- NOTE | 2021-01-19 20:57 | P.CNNES ---
History of Present Illness Consult date: 01/19/21 Requesting physician: Jose Elias Pelayo Reason for Consult: Code stroke with hemiparesis History of Present Illness: Patient is a 70-year-old male came to the hospital by ambulance on 01/14/2021 for COPD exacerbation and renal insufficiency. Patient today at 3:23 PM had a stroke "activated, as he was noted to have mental status change with decreased responsiveness and left-sided weakness. His NIH stroke scale was reported as 8. Patient's vitals were blood pressure 123/59, pulse rate 79 temperature 97.4. Patient underwent computed tomography scan of the head, which revealed mild chronic-appearing periventricular white matter ischemic changes. No acute process. Clinical correlation recommended for acute left mastoiditis. CTA could not be performed because of acute renal insufficiency. Patient's symptoms improved when he came back from the computed tomography scan, and was placed on BiPAP. At present most of the symptoms have resolved. Patient was also noted to have CO2 retention with pCO2 96 on 01/16/2021. Patient currently is on BiPAP. Patient had a 2-D echo performed for 03/01/2021, which revealed normal left ventricular size. Moderate concentric LVH. EF is 55-60%. Left atrium is mildly dilated. Patient's EKG shows normal sinus rhythm. Patient has history of paroxysmal atrial fibrillation with history of ablation in the past. Patient is currently on anticoagulation with Coumadin. Patient's INR was 1.9 this morning. Came down to 1.8 at 6 PM. Patient's Chem-7 shows normal sodium, potassium 5.6, BUN 62, creatinine 1.65. Troponin is negative. TSH normal. Patient's last hemoglobin A1c 6.4 on 08/21/2018. Total cholesterol is 125, LDL 53, HDL 59 and triglycerides 125. Coronal virus PCR negative. Patient states that he has smoked 3 packs per day for about 40 years, quit 2 ye ars ago. Patient has history of end-stage COPD. Review of Systems Patient has obvious shortness of breath, on BiPAP. Denies headache any problem with the vision, denies any hoarseness. Denies abdominal pain nausea vomiting. No diarrhea. Patient does have swelling. Generalized weakness. Denies any numbness. Patient slightly delirious at this time, therefore detailed review of systems cannot be obtained. Past Medical History Past Medical History: Atrial Fibrillation, Atrial Flutter, Heart Failure, COPD, Eye Disorder, Hyperlipidemia, Hypertension, Osteoarthritis (OA), Pneumonia Additional Past Medical History / Comment(s): Home oxygen at 4L/NC ATC, previous exacerbation COPD and vented, chronic cough, bilateral eye glaucoma, pt states he believes he may have mild renal disease and possibly a small OH in the past. History of Any Multi-Drug Resistant Organisms: None Reported Past Surgical History: Ablation, Cardiac Ablation Additional Past Surgical History / Comment(s): Bronchoscopy/bx/lavage, R eye injury with surgery, R/ L eye cataract removals/lens implants, colonoscopy. Past Anesthesia/Blood Transfusion Reactions: No Reported Reaction Smoking Status: Former smoker - Past Family History Brother(s) Family Medical History: Cancer Additional Family Medical History / Comment(s): CML Mother Family Medical History: No Reported History Additional Family Medical History / Comment(s): Mother was healthy and lived to be 90yrs. Father Family Medical History: Myocardial Infarction ([place]) Additional Family Medical History / Comment(s): Father at 74 yrs from a [place] Medications and Allergies Home Medications Medication Instructions Recorded Confirmed Type Atorvastatin [Lipitor] 20 mg PO DAILY 05/02/17 01/14/21 History Latanoprost Ophth [Xalatan 0.005%] 1 drop BOTH EYES HS 01/11/19 01/14/21 History lisinopriL [Zestril] 5 mg PO DAILY 03/11/19 01/14/21 History Albuterol Nebulized [Ventolin 2.5 mg INHALATION RT-QID 10/02/19 01/14/21 History Nebulized] Ipratropium Nebulized [Atrovent 0.5 mg INHALATION RT-QID 10/02/19 01/14/21 History Nebulized 0.2 MG/ML] Warfarin [Coumadin] 7.5 mg PO SUMOWEFR@199910/02/19 01/14/21 History Warfarin [Coumadin] 10 mg PO TUSA@199910/02/19 01/14/21 History Allopurinol [Zyloprim] 100 mg PO DAILY 01/14/21 01/14/21 History Amoxicillin/Potassium Clav 1 tab PO BID 01/14/21 01/14/21 History [Augmentin 875-125 Tablet] Ergocalciferol (Vitamin D2) 1,250 mcg PO SA 01/14/21 01/14/21 History [Drisdol (50,000 Iu)] Ibuprofen [Motrin] 800 mg PO Q8H PRN 01/14/21 01/14/21 History Metoprolol Succinate [Toprol XL] 50 mg PO DAILY 01/14/21 01/14/21 History Nitroglycerin Sl Tabs [Nitrostat] 0.4 mg SUBLINGUAL Q5M PRN 01/14/21 01/14/21 History Torsemide [Demadex] 100 mg PO DAILY 01/14/21 01/14/21 History predniSONE See Taper PO DAILY 01/14/21 01/14/21 History Allergies Allergy/AdvReac Type Severity Reaction Status Date / Time No Known Allergies Allergy Verified 01/14/21 21:32 Physical Examination - Vital Signs Vital Signs: Vital Signs Temp Pulse Pulse Resp BP BP Pulse Ox 01/19/21 20:18 78 26 H 137/75 93 L 01/19/21 17:01 136/73 01/19/21 16:55 87 22 01/19/21 16:05 86 24 126/60 90 L 01/19/21 15:48 88 01/19/21 15:32 87 22 164/76 96 01/19/21 15:31 88 01/19/21 13:44 97.4 F L 79 24 123/59 90 L 01/19/21 11:58 89 01/19/21 11:48 88 01/19/21 10:47 73 26 H 123/65 87 L 01/19/21 09:30 82 24 01/19/21 09:02 82 24 01/19/21 09:00 24 91 L 01/19/21 08:37 85 01/19/21 08:32 84 01/19/21 08:31 84 01/19/21 08:21 84 01/19/21 07:52 97.6 F 82 27 H 142/79 92 L 01/19/21 03:29 98.1 F 77 22 129/74 90 L 01/18/21 23:58 98.2 F 79 20 150/72 90 L 01/18/21 20:51 92 01/18/21 20:37 90 01/18/21 20:36 88 Intake and Output 01/19/21 01/19/21 01/19/21 06:59 14:59 22:59 Intake Total 500 240 Output Total 900 613 550 Balance -900 -113 -310 Intake: Intake, IV Titration 20 Amount Diltiazem 125 mg In 20 Sodium Chloride 0.9% 100 ml @ 5 MG/HR 5 mls/hr IV .Q24H [facility] Rx#:[id number] Oral 480 240 Output: Urine 900 425 550 Post Void Residual 188 Other: Voiding Method Urinal # Voids 3 1 1 Weight 91.5 kg 91.5 kg On examination patient is an elderly male, appears younger than his stated age, is in at least moderate respiratory distress. He is BiPAP on. Patient knows it is January and the year is 2020 and that he is in [facility]. Speech and language functions are normal. Patient can name, repeat without any problem. Attention span, concentration is significantly limited because of delirium. Fund of knowledge is somewhat limited at this time. On cranial nerve exam show pupils are round and reactive to light, visual limon are full on confrontation with no neglect. Extraocular muscles are intact. Face is symmetric and tongue protrudes the midline. Palate was not checked. Hearing is slightly decreased. Shoulder shrug normal. On muscle strength testing patient has mild left drift, does not hit the bed. Patient has significant myoclonic jerks of both upper extremities. The strength is normal in the arms and legs distally and proximally. Reflexes are 1+ and plantars are downgoing. Sensory touch is very inconsistent response. Patient sometimes appears to neglect the left side, but then would consistently say left for either extremity tested. Tone and bulk of muscles normal. Gait deferred. He is no obvious bruit, S1 and S2 audible, abdomen soft nontender. Patient has mild peripheral edema. Results - Laboratory Findings CBC and BMP: 01/15/21 03:15 01/19/21 16:08 Abnormal Lab Findings: Abnormal Labs 01/14/21 01/14/21 01/14/21 20:07 20:07 20:07 WBC 14.5 H RBC 3.70 L Hgb 11.1 L Hct 36.8 L MCHC 30.1 L Neutrophils # 12.9 H Lymphocytes # PT 30.5 H INR 3.2 H APTT 34.8 H ABG pH ABG pCO2 ABG pO2 ABG HCO3 ABG Total CO2 ABG O2 Saturation Sodium 133 L Potassium 6.7 H* Chloride 90 L Carbon Dioxide 35 H BUN 71 H Creatinine 2.53 H Glucose 218 H POC Glucose (mg/dL) Plasma Lactic Acid Jesus Calcium 7.4 L Magnesium Total Protein 5.6 L 01/14/21 01/14/21 01/15/21 20:07 22:06 03:15 WBC 15.4 H RBC 3.69 L Hgb 11.3 L Hct 36.9 L MCHC 30.5 L Neutrophils # 14.6 H Lymphocytes # 0.6 L PT INR APTT ABG pH ABG pCO2 ABG pO2 ABG HCO3 ABG Total CO2 ABG O2 Saturation Sodium Potassium 6.0 H Chloride Carbon Dioxide BUN Creatinine Glucose POC Glucose (mg/dL) Plasma Lactic Acid Jesus 2.1 H* Calcium Magnesium Total Protein 01/15/21 01/16/21 01/16/21 03:15 05:33 05:33 WBC RBC Hgb Hct MCHC Neutrophils # Lymphocytes # PT 18.1 H INR 1.8 H APTT ABG pH ABG pCO2 ABG pO2 ABG HCO3 ABG Total CO2 ABG O2 Saturation Sodium 135 L Potassium 5.7 H 5.5 H Chloride 91 L 92 L Carbon Dioxide 36 H 39 H BUN 66 H 77 H Creatinine 2.31 H 1.90 H Glucose 203 H 152 H POC Glucose (mg/dL) Plasma Lactic Acid Jesus Calcium 7.6 L 7.9 L Magnesium Total Protein 5.8 L 01/16/21 01/17/21 01/17/21 12:00 06:27 12:27 WBC RBC Hgb Hct MCHC Neutrophils # Lymphocytes # PT 19.9 H INR 2.0 H APTT ABG pH 7.24 L ABG pCO2 96 H* ABG pO2 61 L ABG HCO3 41 H* ABG Total CO2 44 H ABG O2 Saturation 88.1 L Sodium Potassium Chloride 90 L Carbon Dioxide 44 H* BUN 93 H Creatinine 1.79 H Glucose 149 H POC Glucose (mg/dL) Plasma Lactic Acid Jesus Calcium 8.2 L Magnesium Total Protein 01/18/21 01/18/21 01/18/21 04:32 04:32 08:08 WBC RBC Hgb Hct MCHC Neutrophils # Lymphocytes # PT 19.0 H INR 1.9 H APTT ABG pH ABG pCO2 ABG pO2 ABG HCO3 ABG Total CO2 ABG O2 Saturation Sodium Potassium Chloride 92 L Carbon Dioxide 44 H* BUN 77 H Creatinine 1.57 H Glucose 142 H POC Glucose (mg/dL) Plasma Lactic Acid Jesus Calcium Magnesium 2.6 H Total Protein 01/19/21 01/19/21 01/19/21 05:21 05:21 05:57 WBC RBC Hgb Hct MCHC Neutrophils # Lymphocytes # PT 18.2 H INR 1.8 H APTT ABG pH ABG pCO2 ABG pO2 ABG HCO3 ABG Total CO2 ABG O2 Saturation Sodium Potassium 5.6 H Chloride Carbon Dioxide 39 H BUN 62 H Creatinine 1.65 H Glucose 158 H POC Glucose (mg/dL) 155 H Plasma Lactic Acid Jesus Calcium Magnesium Total Protein 01/19/21 01/19/21 01/19/21 11:52 15:33 16:08 WBC RBC Hgb Hct MCHC Neutrophils # Lymphocytes # PT 18.5 H INR 1.9 H APTT ABG pH ABG pCO2 ABG pO2 ABG HCO3 ABG Total CO2 ABG O2 Saturation Sodium Potassium Chloride Carbon Dioxide BUN Creatinine Glucose POC Glucose (mg/dL) 185 H 137 H Plasma Lactic Acid Jesus Calcium Magnesium Total Protein 01/19/21 01/19/21 01/19/21 16:08 17:03 20:17 WBC RBC Hgb Hct MCHC Neutrophils # Lymphocytes # PT INR APTT ABG pH ABG pCO2 ABG pO2 ABG HCO3 ABG Total CO2 ABG O2 Saturation Sodium Potassium 5.9 H Chloride 95 L Carbon Dioxide 37 H BUN 62 H Creatinine 1.82 H Glucose 144 H POC Glucose (mg/dL) 152 H 173 H Plasma Lactic Acid Jesus Calcium Magnesium Total Protein 6.2 L Assessment and Plan Assessment: * Possible TIA manifesting with decreased responsiveness and transient left arm weakness, that seems to have improved. * Paroxysmal atrial fibrillation, on anticoagulation with Coumadin, with subtherapeutic INR 1.8. * Advanced COPD, with CO2 retention, on BiPAP * Hyperkalemia * Moderate renal insufficiency * Metabolic encephalopathy due to above. * Patient denies diabetes, although his hemoglobin A1c was 6.4 on 08/21/2018. Plan: * Patient underwent stat carotid Doppler, which revealed mild elevation of the internal carotid artery velocities which would compatible with 50-69% narrowing. Significant plaquing to account for the velocity however is not evident. * Recent 2-D echo showed no embolic source. * Patient has a paroxysmal atrial fibrillation and INR is subtherapeutic 1.9. Suggest bridging with Lovenox. Optimize anticoagulation with target INR 2.0- 3.0. * Patient has moderate ICA stenosis. Suggest starting aspirin 81 mg daily. Follow-up carotid Doppler as outpatient. * Hemoglobin A1c. * Continue Lipitor 20 mg. * Patient's symptoms has mostly resolved, therefore would hold off on MRI, particularly because of severe respiratory difficulty from COPD. May consider repeating computed tomography scan of the head in the morning if deficits persist. * Dr. Piedra will cover neurology service over the weekend.
[2021-01-19] MEDS: LATANOPROST 0.005% OPHTH DROPS 2.5 ML BTL BOTH EYES SCH (21:25)
[2021-01-20 06:17] LABS: Glucose,Whole Blood 182 mg/dL (75-99)
[2021-01-20] MEDS: INSULIN ASPART (NovoLOG) 100 UNIT/ML VIAL SQ SCH ×4 (06:37→20:57)
[2021-01-20] MEDS: methylPREDNISolone SOD SUCCI 40 MG/ML 1 ML VIAL IV SCH ×4 (06:39→23:53)
[2021-01-20] MEDS: FORMOTEROL FUMARATE 20 MCG/2 ML NEBU INHALATION SCH ×2 (08:09→21:12)
[2021-01-20] MEDS: BUDESONIDE 1 MG/2 ML NEBU INHALATION SCH ×2 (08:11→21:12)
[2021-01-20] MEDS: IPRATROPIUM-ALBUTEROL 3 ML NEB INHALATION SCH ×4 (08:12→21:12)
--- NOTE | 2021-01-20 08:22 | XR ---
EXAMINATION TYPE: XR chest 1V DATE OF EXAM: 01/20/2021 COMPARISON: 01/14/2021 INDICATION: CHF TECHNIQUE: Single frontal view of the chest is obtained. FINDINGS: The heart size is normal. The pulmonary vasculature is normal. The lungs are clear. Previous bibasilar infiltrates have resolved IMPRESSION: 1. No acute pulmonary process.
[2021-01-20] MEDS: DILTIAZEM CD 120 MG CAP.ER.24H PO SCH (08:39)
[2021-01-20] MEDS: METOPROLOL SUCCINATE (ER) 100 MG TAB.ER.24H PO SCH (08:39)
[2021-01-20] MEDS: AMOXIC-POT CLAV 875-125MG 1 EACH TAB PO SCH (08:39)
[2021-01-20] MEDS: allopurinoL 100 MG TAB PO SCH (08:39)
[2021-01-20] MEDS: acetaZOLAMIDE 250 MG TAB PO SCH ×2 (08:39→20:57)
[2021-01-20] MEDS: ATORVASTATIN 20 MG TAB PO SCH (08:39)
[2021-01-20] MEDS: ASPIRIN 81 MG PO SCH (08:39)
[2021-01-20] MEDS: SODIUM CHLORIDE 5% OPHTH DROPS 15 ML BTL RIGHT EYE SCH (08:40)
[2021-01-20] MEDS ORDERED: ASPIRIN 325 MG TAB PO SCH (09:00)
[2021-01-20 09:30] LABS: Potassium 4.9 mmol/L (3.5-5.1)
[2021-01-20 10:06] LABS: INR 2.1 (<1.2); Prothrombin Time 20.4 sec (9.0-12.0)
[2021-01-20 10:34] LABS: ABG Base Excess 9.1 mmol/L; ABG HCO3 37 mmol/L (21-25); ABG Oxygen Saturation 95.9 % (94-97); ABG PH 7.21 (7.35-7.45); ABG PO2 93 mmHg (83-108); ABG TCO2 40 mmol/L (19-24); Allen Test Performed? Yes
[2021-01-20 10:51] LABS: ABG PCO2 92 mmHg (35-45)
--- NOTE | 2021-01-20 10:55 | P.PN ---
Subjective Progress Note Date: 01/20/21 This is a 70-year-old gentleman with past medical history consistent for advanced COPD, hypertension, hyperlipidemia, paroxysmal atrial fibrillation, prior episode of pneumonia requiring intubation and mechanical ventilation, morbid obesity, prior history of smoking. He follows with Dr. Saldivar in the office. He presented to the emergency room with symptoms of worsening shortness of breath, patient had been on prednisone and Augmentin as an outpatient. His chest x-ray on presentation here showed mild subsegmental atelectasis at the lung bases that appear to be new. Covid 19 testing was negative. Cardiology was reconsulted to see the patient because he went back into atrial fibrillation with a rapid ventricular response and was initiated on IV Cardizem. He was seen and examined this morning, remaining at this time in normal sinus rhythm, off of the Cardizem drip. The patient is on Coumadin for anticoagulation, his INR this morning is 2.1. patient's scheduled dose of Coumadin is 10 mg Tuesdays and Saturdays, 7-1/2 mg Friday, which we will continue. Owen kemalmervat overall feels well this morning he has no overt complaints. Blood pressure 132/60 with a heart rate in the 80s, 90% on 4 L of oxygen. Sodium 140, potassium 4.9, BUN 63, creatinine 1.6. Objective - Vital Signs Vital signs: Vital Signs Temp 97.6 F 01/20/21 08:00 Pulse 88 01/20/21 08:29 Resp 20 01/20/21 09:30 BP 133/63 01/20/21 08:00 Pulse Ox 90 L 01/20/21 09:30 Intake & Output 01/19/21 01/20/21 01/20/21 18:59 06:59 18:59 Intake Total 740 0 Output Total 863 525 Balance -123 -525 0 Weight 91.5 kg 91 kg Intake: Intake, IV Titration 20 Amount Diltiazem 125 mg In 20 Sodium Chloride 0.9% 100 ml @ 5 MG/HR 5 mls/hr IV .Q24H [facility] Rx#:[id number] Oral 720 0 Output: Urine 675 525 Post Void Residual 188 Other: Voiding Method Urinal Urinal # Voids 1 1 1 - Exam PHYSICAL EXAM: VITAL SIGNS: Reviewed. GENERAL: Well-developed in no acute distress. HEENT: Head is normocephalic. Pupils are equal, round. Sclerae anicteric. Mucous membranes of the mouth are moist. Neck supple. No JVD or thyromegaly LUNGS: Respirations even and unlabored. Lungs diminished with expiratory wheezing noted in all lung limon. HEART: Regular rate and rhythm. S1 and S2 heard. ABDOMEN: Soft. Nondistended. Nontender. EXTREMITIES: Normal range of motion. No clubbing or cyanosis. Peripheral pulses intact. 1+ bilateral lower extremity edema NEUROLOGIC: Awake and alert. Oriented x 3. - Labs CBC & Chem 7: 01/15/21 03:15 01/20/21 08:52 Labs: Abnormal Lab Results - Last 24 Hours (Table) 01/19/21 01/19/21 01/19/21 Range/Units 11:52 15:33 16:08 PT 18.5 H (9.0-12.0) sec INR 1.9 H (<1.2) Potassium (3.5-5.1) mmol/L Chloride (98-107) mmol/L Carbon Dioxide (22-30) mmol/L BUN (9-20) mg/dL Creatinine (0.66-1.25) mg/dL Glucose (74-99) mg/dL POC Glucose (mg/dL) 185 H 137 H (75-99) mg/dL Total Protein (6.3-8.2) g/dL 01/19/21 01/19/21 01/19/21 Range/Units 16:08 17:03 20:17 PT (9.0-12.0) sec INR (<1.2) Potassium 5.9 H (3.5-5.1) mmol/L Chloride 95 L (98-107) mmol/L Carbon Dioxide 37 H (22-30) mmol/L BUN 62 H (9-20) mg/dL Creatinine 1.82 H (0.66-1.25) mg/dL Glucose 144 H (74-99) mg/dL POC Glucose (mg/dL) 152 H 173 H (75-99) mg/dL Total Protein 6.2 L (6.3-8.2) g/dL 01/20/21 01/20/21 01/20/21 Range/Units 06:16 08:52 08:52 PT 20.4 H (9.0-12.0) sec INR 2.1 H (<1.2) Potassium (3.5-5.1) mmol/L Chloride 95 L (98-107) mmol/L Carbon Dioxide 41 H* (22-30) mmol/L BUN 63 H (9-20) mg/dL Creatinine 1.68 H (0.66-1.25) mg/dL Glucose 121 H (74-99) mg/dL POC Glucose (mg/dL) 182 H (75-99) mg/dL Total Protein (6.3-8.2) g/dL Assessment and Plan Plan: Assessment and plan #1 acute on chronic hypoxic and hypercapnic respiratory failure, secondary to COPD exacerbation #2 paroxysmal atrial fibrillation, currently in normal sinus rhythm, anticoagulated with Coumadin #3 acute kidney injury #4 hypertension #5 chronic diastolic congestive heart failure #6 hyperlipidemia #7 history of nicotine dependence Plan From cardiology's perspective, we'll continue the patient on his current dose of Coumadin to maintain an INR in the range of 2-2.5. Continue Lipitor 20 mg daily, Cardizem 120 mg daily, metoprolol 100 mg daily. Diuretics as per nephrology. Resume ALFIE inhibitor when okay with nephrology. Further recommendations to follow. DNP note has been reviewed, I agree with a documented findings and plan of care. Patient was seen and examined.
--- NOTE | 2021-01-20 11:23 | P.PN ---
Subjective Patient is seen in follow-up for acute kidney injury. Renal function better today. Currently on 4 L nasal cannula. Sitting up in chair. Feels tired. No chest pain or shortness of breath. Vital signs are stable. General: The patient appeared well nourished and normally developed. HEENT: Head exam is unremarkable. LUNGS: Breath sounds decreased. HEART: Rate and Rhythm are regular. ABDOMEN: Abdominal exam reveals normal bowel sounds. EXTREMITITES: No edema. Objective - Vital Signs Vital signs: Vital Signs Temp 97.6 F 01/20/21 08:00 Pulse 88 01/20/21 08:29 Resp 20 01/20/21 09:30 BP 133/63 01/20/21 08:00 Pulse Ox 90 L 01/20/21 09:30 Intake & Output 01/19/21 01/20/21 01/20/21 18:59 06:59 18:59 Intake Total 740 0 Output Total 863 525 Balance -123 -525 0 Weight 91.5 kg 91 kg Intake: Intake, IV Titration 20 Amount Diltiazem 125 mg In 20 Sodium Chloride 0.9% 100 ml @ 5 MG/HR 5 mls/hr IV .Q24H [facility] Rx#:[id number] Oral 720 0 Output: Urine 675 525 Post Void Residual 188 Other: Voiding Method Urinal Urinal Urinal # Voids 1 1 1 - Labs CBC & Chem 7: 01/15/21 03:15 01/20/21 08:52 Labs: Abnormal Lab Results - Last 24 Hours (Table) 01/19/21 01/19/21 01/19/21 Range/Units 11:52 15:33 16:08 PT 18.5 H (9.0-12.0) sec INR 1.9 H (<1.2) ABG pH (7.35-7.45) ABG pCO2 (35-45) mmHg ABG HCO3 (21-25) mmol/L ABG Total CO2 (19-24) mmol/L Potassium (3.5-5.1) mmol/L Chloride (98-107) mmol/L Carbon Dioxide (22-30) mmol/L BUN (9-20) mg/dL Creatinine (0.66-1.25) mg/dL Glucose (74-99) mg/dL POC Glucose (mg/dL) 185 H 137 H (75-99) mg/dL Total Protein (6.3-8.2) g/dL 01/19/21 01/19/21 01/19/21 Range/Units 16:08 17:03 20:17 PT (9.0-12.0) sec INR (<1.2) ABG pH (7.35-7.45) ABG pCO2 (35-45) mmHg ABG HCO3 (21-25) mmol/L ABG Total CO2 (19-24) mmol/L Potassium 5.9 H (3.5-5.1) mmol/L Chloride 95 L (98-107) mmol/L Carbon Dioxide 37 H (22-30) mmol/L BUN 62 H (9-20) mg/dL Creatinine 1.82 H (0.66-1.25) mg/dL Glucose 144 H (74-99) mg/dL POC Glucose (mg/dL) 152 H 173 H (75-99) mg/dL Total Protein 6.2 L (6.3-8.2) g/dL 01/20/21 01/20/21 01/20/21 Range/Units 06:16 08:52 08:52 PT 20.4 H (9.0-12.0) sec INR 2.1 H (<1.2) ABG pH (7.35-7.45) ABG pCO2 (35-45) mmHg ABG HCO3 (21-25) mmol/L ABG Total CO2 (19-24) mmol/L Potassium (3.5-5.1) mmol/L Chloride 95 L (98-107) mmol/L Carbon Dioxide 41 H* (22-30) mmol/L BUN 63 H (9-20) mg/dL Creatinine 1.68 H (0.66-1.25) mg/dL Glucose 121 H (74-99) mg/dL POC Glucose (mg/dL) 182 H (75-99) mg/dL Total Protein (6.3-8.2) g/dL 01/20/21 Range/Units 10:04 PT (9.0-12.0) sec INR (<1.2) ABG pH 7.21 L (7.35-7.45) ABG pCO2 92 H* (35-45) mmHg ABG HCO3 37 H (21-25) mmol/L ABG Total CO2 40 H (19-24) mmol/L Potassium (3.5-5.1) mmol/L Chloride (98-107) mmol/L Carbon Dioxide (22-30) mmol/L BUN (9-20) mg/dL Creatinine (0.66-1.25) mg/dL Glucose (74-99) mg/dL POC Glucose (mg/dL) (75-99) mg/dL Total Protein (6.3-8.2) g/dL Assessment and Plan Plan: Assessment: 1. Acute kidney injury secondary to ATN secondary to hemodynamic instability. Renal function little better today. Creatinine 1.68. UA benign. No evidence of hydronephrosis. 2. Hyperkalemia secondary to acute kidney injury. Improved. 3. Acute on chronic hypercapnic respiratory failure. 4. Metabolic alkalosis. Mostly compensatory for the underlying respiratory acidosis. Maintained on Diamox. 5. Chronic diastolic CHF. Currently compensated. 6. COPD exacerbation. 7. A. fib. Cardiology following. On Cardizem and metoprolol. Also on antipl atelet medication. Plan: Maintain Diamox. Remains off fluids and diuretics. Avoid nephrotoxins. Encouraged oral intake. Repeat electrolytes in the morning.
[2021-01-20 11:56] LABS: Glucose,Whole Blood 159 mg/dL (75-99)
--- NOTE | 2021-01-20 16:07 | P.PN ---
Subjective Progress Note Date: 01/20/21 Principal diagnosis: Shortness of breath. Patient was reevaluated today on 01/16/2021, remains on oxygen remains on multiple bronchodilators he is on prednisone and Solu-Medrol, and I went ahead and discontinued Solu-Medrol kept him on prednisone. He is on multiple bronchodilators, feeling better today compared to yesterday. Less shortness of breath but continues to have intermittent cough and wheezing. When I saw the patient earlier today, he was noted to be comfortable, however as I'm dictating on this patient, apparently an ABG was done in the last half hour and it showed a pO2 of 61 pCO2 of 96 pH of 7.4, hence I recommended immediate placement of this patient on BiPAP here placed on IPAP 14 EPAP of 6 FiO2 of 50%. I will go ahead and restart the patient on Solu-Medrol, and discontinue prednisone. Chest x-ray on admission showed mild subsegmental atelectasis. Reevaluated today on 01/17/2021, we are seeing this patient for acute exacerbation of COPD, acute on chronic hypoxia and hypercapnic respiratory failure. Patient required to be placed on BiPAP overnight, his gases reflected relative hypoxemia and hypercapnia with pCO2 was high as 90 and pH of 7.24. Patient is now back on nasal cannula, sitting, eating breakfast, tells me that he is slightly better today compared to yesterday. Labs today were reviewed, he had INR of 2.0, therapeutic. ABG from yesterday showed a pO2 of 61 pCO2 of 96 pH of 7.24 and this was on 4 L nasal cannula. Patient had ultrasound of the abdomen yesterday, there was no evidence of hydronephrosis or nephrolithiasis. Reevaluated today on 01/18/2021, we are following up on this patient for his acute exacerbation of COPD and acute on chronic hypoxic and hypercapnic respiratory failure. Patient is doing better, breathing easier, intermittently requiring BiPAP, but he is now on 3 L nasal cannula, continues to have cough wheezing and shortness of breath intermittently. INR is 1.9. His bicarb is 44 BUN is 77 creatinine 1.57, steadily improving. Progress note dated January 19, 2021. 70-year-old white male, well-known to our service. The patient has a history of severe COPD. The patient was admitted a couple days ago, with a COPD exacerbation. Currently, he is feeling better. His breathing is improved. He has both hypoxemic and hypercapnic respiratory failure. Currently, he is on 5 L nasal cannula. Saturations are 90%. PT 18.2, INR 1.8, sodium 143, potassium 5.6, chlorides 98, CO2 39, anion gap 6, BUN 62, creatinine 1.65. A brain CT was done today, which did not show anything acute. Progress note dated 01/20/2021. 70-year-old male, well-known to our service. The patient has end-stage COPD. His FEV1, when last checked, was 26%. That makes him, stage IV disease area is chronically on oxygen therapy with both hypoxemic and hypercapnic respiratory failure chronically. The patient is currently on BiPAP. Settings include 15 IPAP and EPAP 6, and 30%. His blood gases show both hypoxemic and hypercapnic respiratory failure which explains why he is so lethargic and somnolent. His daughter was in the room and I explained that to her today. In addition, we talked about CODE STATUS about intubation with mechanical ventilation. They both agree, that he would not want to be on life support. He has given it much salt. He does realize he has end-stage lung disease. He is just hoping to be able get good enough, to go home. He has not seen us in the office for more than a year. Lab work from today shows a PT 20.4, INR 2.1, sodium 140, potassium 4.9, chlorides 95, CO2 41, anion gap 4, BUN 63, and creatinine 1.68. Based on the carbon dioxide or bicarbonate concentration of 41, his baseline PaCO2 should be right around 70 + or -2 mmHg. He had a blood gas done today which showed a PaO2 of 93, pCO2 of 92, and a pH of 7.21. If the CO2 of 92 is corrected down to 70, his pH would be normal. Chest x-ray showed no acute pulmonary process. Objective - Vital Signs Vital signs: Vital Signs Temp 97.6 F 01/20/21 08:00 Pulse 75 01/20/21 11:40 Resp 20 01/20/21 11:40 BP 120/77 01/20/21 11:40 Pulse Ox 92 L 01/20/21 11:40 Intake & Output 01/19/21 01/20/21 01/20/21 18:59 06:59 18:59 Intake Total 740 240 Output Total 863 525 300 Balance -123 -525 -60 Weight 91.5 kg 91 kg Intake: Intake, IV Titration 20 Amount Diltiazem 125 mg In 20 Sodium Chloride 0.9% 100 ml @ 5 MG/HR 5 mls/hr IV .Q24H [facility] Rx#:[id number] Oral 720 240 Output: Urine 675 525 300 Post Void Residual 188 Other: Voiding Method Urinal Urinal Urinal # Voids 1 1 1 - Exam GENERAL EXAM: Lethargic, somnolent, currently on BiPAP at 15/6, and 30%. HEAD: Normocephalic/atraumatic. The patient has a cushingoid facies. EENT: PERRLA, EOMI, nonicteric, moist mucous membranes, no neck masses, no JVD, no stridor CHEST: No chest wall deformity. Symmetrical expansion. LUNGS: Diminished air entry , scattered rhonchi and wheezes on forced expiratory maneuver. CVS: Regular rate and rhythm, normal S1 and S2, no gallops, no murmurs, no rubs. Heart rate 75 bpm. ABDOMEN: Obese, Soft, nontender. No hepatosplenomegaly, normal bowel sounds, no guarding or rigidity. EXTREMITIES: No clubbing, 1+ lower extremity edema, no cyanosis, 2+ pulses and upper and lower extremities. No myoclonic jerks were noted today. SPINE: No scoliosis or deformity SKIN: No rashes CENTRAL NERVOUS SYSTEM: Alert and oriented 3 no gross focal deficit PSYCHIATRIC: Normal mood, affect and normal mental status examination. - Labs CBC & Chem 7: 01/15/21 03:15 01/20/21 08:52 Labs: Abnormal Lab Results - Last 24 Hours (Table) 01/19/21 01/19/21 01/19/21 Range/Units 16:08 16:08 17:03 PT 18.5 H (9.0-12.0) sec INR 1.9 H (<1.2) ABG pH (7.35-7.45) ABG pCO2 (35-45) mmHg ABG HCO3 (21-25) mmol/L ABG Total CO2 (19-24) mmol/L Potassium 5.9 H (3.5-5.1) mmol/L Chloride 95 L (98-107) mmol/L Carbon Dioxide 37 H (22-30) mmol/L BUN 62 H (9-20) mg/dL Creatinine 1.82 H (0.66-1.25) mg/dL Glucose 144 H (74-99) mg/dL POC Glucose (mg/dL) 152 H (75-99) mg/dL Total Protein 6.2 L (6.3-8.2) g/dL 01/19/21 01/20/21 01/20/21 Range/Units 20:17 06:16 08:52 PT (9.0-12.0) sec INR (<1.2) ABG pH (7.35-7.45) ABG pCO2 (35-45) mmHg ABG HCO3 (21-25) mmol/L ABG Total CO2 (19-24) mmol/L Potassium (3.5-5.1) mmol/L Chloride 95 L (98-107) mmol/L Carbon Dioxide 41 H* (22-30) mmol/L BUN 63 H (9-20) mg/dL Creatinine 1.68 H (0.66-1.25) mg/dL Glucose 121 H (74-99) mg/dL POC Glucose (mg/dL) 173 H 182 H (75-99) mg/dL Total Protein (6.3-8.2) g/dL 01/20/21 01/20/21 01/20/21 Range/Units 08:52 10:04 11:54 PT 20.4 H (9.0-12.0) sec INR 2.1 H (<1.2) ABG pH 7.21 L (7.35-7.45) ABG pCO2 92 H* (35-45) mmHg ABG HCO3 37 H (21-25) mmol/L ABG Total CO2 40 H (19-24) mmol/L Potassium (3.5-5.1) mmol/L Chloride (98-107) mmol/L Carbon Dioxide (22-30) mmol/L BUN (9-20) mg/dL Creatinine (0.66-1.25) mg/dL Glucose (74-99) mg/dL POC Glucose (mg/dL) 159 H (75-99) mg/dL Total Protein (6.3-8.2) g/dL Assessment and Plan Assessment: Acute on chronic hypoxic and hypercapnic respiratory failure secondary to COPD exacerbation. Acute kidney injury. Acute hyperkalemia secondary to acute kidney injury. Paroxysmal atrial fibrillation. Benign essential hypertension. Degenerative joint disease. Chronic diastolic congestive heart failure Plan: Plan dated 01/19/2021. The patient's doing a bit better. We want him to continue on his bronchodilators, nasal cannula alternating with BiPAP, Solu-Medrol, Coumadin, Pulmicort and performist, Augmentin, as well as albuterol sulfate and ipratropium bromide. The patient tested negative by PCR for coronavirus. We will continue to follow. He should follow up with Dr. Quarles and our office post discharge. No additional recommendations are made. Prognosis is poor. Plan dated 01/20/2021. I was able to have a conversation with the patient, and his daughter. We talked about end-of-life issues including intubation, and mechanical ventilation. The patient was actually not want to be on life support. He made that very clear to me. I think that's a right decision for this patient given the fact his FEV1 percent when checked more than a year ago, was 26%. He has stage IV disease. The goal right now is to get him well enough to go home. He hasn't been seen in our office in more than a year. He used to follow up with Dr. Quarles. Maybe he'll come back, not sure. Time with Patient: Less than 30
--- NOTE | 2021-01-20 16:28 | P.PN ---
Subjective Progress Note Date: 01/20/21 The patient is a 70-year-old male who is seen in neurologic follow-up on January 20, 2021, via teleneurology. The patient is seated in the bedside chair. He reports no return of his left- sided weakness. According to the RN, the patient has had no deficits. Objective - Vital Signs Vital signs: Vital Signs Temp 97.6 F 01/20/21 08:00 Pulse 75 01/20/21 11:40 Resp 20 01/20/21 11:40 BP 120/77 01/20/21 11:40 Pulse Ox 92 L 01/20/21 11:40 Intake & Output 01/19/21 01/20/21 01/20/21 18:59 06:59 18:59 Intake Total 740 240 Output Total 863 525 300 Balance -123 -525 -60 Weight 91.5 kg 91 kg Intake: Intake, IV Titration 20 Amount Diltiazem 125 mg In 20 Sodium Chloride 0.9% 100 ml @ 5 MG/HR 5 mls/hr IV .Q24H [facility] Rx#:[id number] Oral 720 240 Output: Urine 675 525 300 Post Void Residual 188 Other: Voiding Method Urinal Urinal Urinal # Voids 1 1 1 - Exam Gen.: The patient is seated in the bedside chair. He has a BIPAP mask in place. He is obese. He is somewhat somnolent. HEENT: Head is atraumatic, normocephalic. Fundus not visualized. There is no scleral icterus. Mucous membranes are moist Extremities: Bilateral, 2+ pitting edema Neurological examination Mental status: The patient is somewhat somnolent however is able to wake up and answer questions. He is oriented to his name, date of , age and location. His speech is clear. Motor: Bilateral upper extremity strength is 5/5. Left hip flexor 3-/5. Bilateral ankle dorsi and plantar flexors 5/5. - Labs CBC & Chem 7: 01/15/21 03:15 01/20/21 08:52 Labs: Abnormal Lab Results - Last 24 Hours (Table) 01/19/21 01/19/21 01/19/21 Range/Units 15:33 16:08 16:08 PT 18.5 H (9.0-12.0) sec INR 1.9 H (<1.2) ABG pH (7.35-7.45) ABG pCO2 (35-45) mmHg ABG HCO3 (21-25) mmol/L ABG Total CO2 (19-24) mmol/L Potassium 5.9 H (3.5-5.1) mmol/L Chloride 95 L (98-107) mmol/L Carbon Dioxide 37 H (22-30) mmol/L BUN 62 H (9-20) mg/dL Creatinine 1.82 H (0.66-1.25) mg/dL Glucose 144 H (74-99) mg/dL POC Glucose (mg/dL) 137 H (75-99) mg/dL Total Protein 6.2 L (6.3-8.2) g/dL 01/19/21 01/19/21 01/20/21 Range/Units 17:03 20:17 06:16 PT (9.0-12.0) sec INR (<1.2) ABG pH (7.35-7.45) ABG pCO2 (35-45) mmHg ABG HCO3 (21-25) mmol/L ABG Total CO2 (19-24) mmol/L Potassium (3.5-5.1) mmol/L Chloride (98-107) mmol/L Carbon Dioxide (22-30) mmol/L BUN (9-20) mg/dL Creatinine (0.66-1.25) mg/dL Glucose (74-99) mg/dL POC Glucose (mg/dL) 152 H 173 H 182 H (75-99) mg/dL Total Protein (6.3-8.2) g/dL 01/20/21 01/20/21 01/20/21 Range/Units 08:52 08:52 10:04 PT 20.4 H (9.0-12.0) sec INR 2.1 H (<1.2) ABG pH 7.21 L (7.35-7.45) ABG pCO2 92 H* (35-45) mmHg ABG HCO3 37 H (21-25) mmol/L ABG Total CO2 40 H (19-24) mmol/L Potassium (3.5-5.1) mmol/L Chloride 95 L (98-107) mmol/L Carbon Dioxide 41 H* (22-30) mmol/L BUN 63 H (9-20) mg/dL Creatinine 1.68 H (0.66-1.25) mg/dL Glucose 121 H (74-99) mg/dL POC Glucose (mg/dL) (75-99) mg/dL Total Protein (6.3-8.2) g/dL 01/20/21 Range/Units 11:54 PT (9.0-12.0) sec INR (<1.2) ABG pH (7.35-7.45) ABG pCO2 (35-45) mmHg ABG HCO3 (21-25) mmol/L ABG Total CO2 (19-24) mmol/L Potassium (3.5-5.1) mmol/L Chloride (98-107) mmol/L Carbon Dioxide (22-30) mmol/L BUN (9-20) mg/dL Creatinine (0.66-1.25) mg/dL Glucose (74-99) mg/dL POC Glucose (mg/dL) 159 H (75-99) mg/dL Total Protein (6.3-8.2) g/dL Assessment and Plan Assessment: 1. TIA with transient left-sided weakness 2. Paroxysmal Atrial fibrillation per history, on anticoagulation with initial subtherapeutic INR 3. COPD 4. Left ICA stenosis Plan: 1. Will change neuro checks to Q shift 2. Continue anticoagulation and high-dose statin 3. Agree with aspirin as recommended by Dr. Hampton 4. Repeat Carotid Doppler As Outpatient Time with Patient: Less than 30 (spent 20 minutes with patient via teleneurology)
[2021-01-20 16:57] LABS: Glucose,Whole Blood 159 mg/dL (75-99)
[2021-01-20] MEDS ORDERED: WARFARIN 10 MG TAB PO ONE (18:00)
[2021-01-20 20:38] LABS: Glucose,Whole Blood 187 mg/dL (75-99)
[2021-01-20] MEDS: LATANOPROST 0.005% OPHTH DROPS 2.5 ML BTL BOTH EYES SCH (20:58)
--- NOTE | 2021-01-20 22:29 | P.PN ---
Progress Note - Text Progress Note Date: 01/20/21 History of presenting complaint: Patient is a 70-year-old male, follows with PCP Dr. Cali with a PMH of advanced COPD, chronic hypoxic respiratory failure on 4 L nasal cannula oxygen continuously at home, systolic CHF, hypertension, A. fib on Coumadin, and hyperlipidemia presented to the emergency room with complaints of gradually worsening shortness of breath. The patient is accompanied by his at the bedside. Patient reports that over the past few weeks, he has noticed that he now gets winded with even minimal exertion such as walking to the bathroom. He reports that even after resting, it takes him a lot longer to get back to his baseline after the above-mentioned exertion. She sleeps in a reclined position which is unchanged over the past few weeks. He reports some chest tightness with these episodes which resolves with rest. Also reports that his cough is now productive with more yellow-green phlegm than usual. He also reports long- standing unchanged lower extremity pitting edema bilaterally. Denied fevers at home. Also denied abdominal pain, nausea, vomiting, diarrhea, dizziness. In the emergency room a chest x-ray revealed mild subsegmental atelectasis bilateral bases. EKG revealed normal sinus rhythm at [address]/T-wave changes noted as reviewed by me. Laboratory evaluation was remarkable for WBC count 14.5, hemoglobin 11.1, INR 3.2, sodium 133, potassium 6.7 (hemolyzed), chloride 90, CO2 35, BUN 71, creatinine 2.53, lactic acid 2.1, troponin 0.012, coronavirus PCR negative, and proBNP 542. She was given nebulizer treatments and is being admitted to the hospital for further management. Admitted with a diagnosis of COPD exacerbation . Placed on bronchodilators and steroids. Patient also had hypoxic encephalopathy. Blood gases showed CO2 retention. Swished over to BiPAP. Patient went into A. fib with rapid ventricular rate. Moved to the cardiology floor. Converted to sinus rhythm. Today: Sitting up in a chair. Nasal cannula. Has been using BiPAP. Daughter the bedside. Oral intake improved. Tired. Short of breath. Remains in sinus rhythm Review of systems: Was done for constitutional, cardiovascular, GI, pulmonary. relevant finding as above Active Medications Acetazolamide (Acetazolamide 250 Mg Tab) 250 mg PO BID [facility] Last Admin: 01/20/21 20:57 Dose: 250 mg Documented by: Albuterol/Ipratropium (Ipratropium-Albuterol 3 Ml Neb) 3 ml INHALATION QID [facility] Last Admin: 01/20/21 21:12 Dose: 3 ml Documented by: Albuterol/Ipratropium (Ipratropium-Albuterol 3 Ml Neb) 3 ml INHALATION RT-Q2H PRN PRN Reason: Shortness Of Breath Or Wheezing Last Admin: 01/16/21 03:11 Dose: 3 ml Documented by: Allopurinol (Allopurinol 100 Mg Tab) 100 mg PO DAILY [facility] Last Admin: 01/20/21 08:39 Dose: 100 mg Documented by: Aspirin (Aspirin 81 Mg) 81 mg PO DAILY [facility] Last Admin: 01/20/21 08:39 Dose: 81 mg Documented by: Atorvastatin Calcium (Atorvastatin 20 Mg Tab) 20 mg PO DAILY [facility] Last Admin: 01/20/21 08:39 Dose: 20 mg Documented by: Budesonide (Budesonide 1 Mg/2 Ml Nebu) 1 mg INHALATION RT-BID [facility] Last Admin: 01/20/21 21:12 Dose: 1 mg Documented by: Diltiazem HCl (Diltiazem Cd 120 Mg Cap.Er.24h) 120 mg PO DAILY [facility] Last Admin: 01/20/21 08:39 Dose: 120 mg Documented by: Formoterol Fumarate (Formoterol Fumarate 20 Mcg/2 Ml Nebu) 20 mcg INHALATION RT-BID [facility] Last Admin: 01/20/21 21:12 Dose: 20 mcg Documented by: Insulin Aspart (Insulin Aspart (Novolog) 100 Unit/Ml Vial) 0 unit SQ ACHS [facility]; Protocol Last Admin: 01/20/21 20:57 Dose: 5 unit Documented by: Latanoprost (Latanoprost 0.005% Ophth Drops 2.5 Ml Btl) 1 drops BOTH EYES HS [facility] Last Admin: 01/20/21 20:58 Dose: 1 drops Documented by: Methylprednisolone Sodium Succinate (Methylprednisolone Sod Succi 40 Mg/Ml 1 Ml Vial) 40 mg IV Q6HR [facility] Last Admin: 01/20/21 17:17 Dose: 40 mg Documented by: Metoprolol Succinate (Metoprolol Succinate (Er) 100 Mg Tab.Er.24h) 100 mg PO DAILY [facility] Last Admin: 01/20/21 08:39 Dose: 100 mg Documented by: Miscellaneous Information (Warfarin Per Pharmacy) 1 each MISCELLANE DIRECTED PRN; Protocol PRN Reason: Per Protocol Sodium Chloride (Sodium Chloride 5% Ophth Drops 15 Ml Btl) 1 drops RIGHT EYE DAILY [facility] Last Admin: 01/20/21 08:40 Dose: 1 drops Documented by: On examination: VITAL SIGNS: 97.7, 70, 20, 135/67, 92% GENERAL APPEARANCE: Sitting upon a chair, nasal cannula, awake tired HEENT: Normal external appearance of nose and ear. Oral cavity normal EYES: Pupils equal. Conjunctiva normal. NECK: JVD not raised. Mass not palpable. RESPIRATORY: Respiratory effort increased. Diminished breath sounds, prolonged expiration, mild wheezing CARDIOVASCULAR: First and second sounds normal. Some edema. ABDOMEN: Soft. Liver and spleen not palpable. No tenderness. No mass palpable. PSYCHIATRY: Answering questions, tired INVESTIGATIONS, reviewed in the clinical context: January 20: INR 2.1 ABG: PH 7.2 pCO2 92 pO2 93 potassium 4.9 creatinine 1.68 January 19: INR 1.9 potassium 5.9 creatinine 1.8 to January 18: Potassium 4.4 bicarbonate 44 creatinine 1.57 INR 1.9 troponin I 0.019 TSH 1.1 January 17: INR 2.0 potassium 4.5 creatinine 1.79 January 16: ABG-T8 7 0.24, pCO2 96, pO2 41. Potassium 5.5 creatinine 1.9 WBC 15.4 hemoglobin 11.3 platelets 324 potassium 5.7 bun 66 creatinine 2.31 Troponin I 2 negative LDL 53 2-D echocardiogram: Moderate concentric LVH. EF 55-60% right ventricle severely enlarged EKG tracing personally reviewed by me-normal sinus rhythm Chest x-ray film personally reviewed by me-right lung base atelectasis Plan: Acute COPD exacerbation, in a previous smoker, slow to respond -On IV Solu-Medrol, bronchodilators, inhaled steroids, CKD stage 3, likely from nephrosclerosis -Monitor BMP . Consult nephrology. ESTER Luna. Renal diet Acute kidney injury possibly ATN -IV fluids. Improving. Creatinine from 2.5 , has come down Hyperkalemia, due to ZABRINA - Kayexalate. Repeat dose. Stop Zestril. Potassium was gone up again.- Corrected Alkalosis, may be due to over-diuresis and volume contraction -Monitor for now Leukocytosis, likely due to home oral prednisone use -Monitor for now Paroxysmal Afib, in sinus rhythm on presentation, with a rapid ventricular rate on January 18. Back into sinus rhythm -C/w Coumadin. Cardiology consulted. Started on Cardizem CD 120 mg daily Obesity BMI 39.9 -Weight loss measures and follow with PCP as outpatient Chronic cor pulmonale -Continue with diuretics Essential hypertension -Continue Toprol-XL. Hold off Zestril for now because of hyperkalemia Hyperlipidemia -Continue with Lipitor Primary osteoarthritis -Use analgesics when necessary Chronic hypoxic respiratory failure on home oxygen 4 L -Continue with oxygen Acute hypoxic metabolic encephalopathy hypoxic-slowly improving Acute hypoxic and hypercapnic respiratory failure, severe-slow to respond -Responding well to BiPAP initially. Nasal cannula was attempted. Back on BiPAP. Had a lengthy talk with the patient and the daughter at the bedside. Questions were answered. They understand guarded prognosis. Follow
[2021-01-21 06:27] LABS: Glucose,Whole Blood 150 mg/dL (75-99)
[2021-01-21] MEDS: methylPREDNISolone SOD SUCCI 40 MG/ML 1 ML VIAL IV SCH ×3 (06:46→17:16)
[2021-01-21] MEDS: INSULIN ASPART (NovoLOG) 100 UNIT/ML VIAL SQ SCH ×4 (06:46→21:20)
[2021-01-21] MEDS: acetaZOLAMIDE 250 MG TAB PO SCH (08:19)
[2021-01-21] MEDS: METOPROLOL SUCCINATE (ER) 100 MG TAB.ER.24H PO SCH (08:19)
[2021-01-21] MEDS: SODIUM CHLORIDE 5% OPHTH DROPS 15 ML BTL RIGHT EYE SCH (08:19)
[2021-01-21] MEDS: allopurinoL 100 MG TAB PO SCH (08:19)
[2021-01-21] MEDS: ASPIRIN 81 MG PO SCH (08:19)
[2021-01-21] MEDS: DILTIAZEM CD 120 MG CAP.ER.24H PO SCH (08:19)
[2021-01-21] MEDS: ATORVASTATIN 20 MG TAB PO SCH (08:19)
[2021-01-21 08:47] LABS: INR 3.2 (<1.2); Prothrombin Time 31.3 sec (9.0-12.0)
[2021-01-21 08:54] LABS: Magnesium 2.9 mg/dL (1.6-2.3); Potassium 4.6 mmol/L (3.5-5.1)
--- NOTE | 2021-01-21 09:21 | P.PN ---
Subjective Progress Note Date: 01/21/21 This is a 70-year-old gentleman with past medical history consistent for advanced COPD, hypertension, hyperlipidemia, paroxysmal atrial fibrillation, prior episode of pneumonia requiring intubation and mechanical ventilation, morbid obesity, prior history of smoking. He follows with Dr. Saldivar in the office. He presented to the emergency room with symptoms of worsening shortness of breath, patient had been on prednisone and Augmentin as an outpatient. His chest x-ray on presentation here showed mild subsegmental atelectasis at the lung bases that appear to be new. Covid 19 testing was negative. Cardiology was reconsulted to see the patient because he went back into atrial fibrillation with a rapid ventricular response and was initiated on IV Cardizem. He was seen and examined this morning, remaining at this time in normal sinus rhythm, off of the Cardizem drip. The patient is on Coumadin for anticoagulation, his INR this morning is 2.1. patient's scheduled dose of Coumadin is 10 mg Tuesdays and Saturdays, 7-1/2 mg Friday, which we will continue. Owen shanell overall feels well this morning he has no overt complaints. Blood pressure 132/60 with a heart rate in the 80s, 90% on 4 L of oxygen. Sodium 140, potassium 4.9, BUN 63, creatinine 1.6. 01/21/2021 Patient seen and examined this morning, sitting up in the chair, complains of still feeling short of breath. Maintaining normal sinus rhythm. Blood pressure 140/70 with a heart rate of 90, 87% on 4 L. INR today is 3.2. Sodium 139, potassium 4.6, BUN 69, creatinine 1.7, magnesium 2.9. Objective - Vital Signs Vital signs: Vital Signs Temp 98.5 F 01/21/21 08:17 Pulse 94 01/21/21 08:17 Resp 18 01/21/21 08:17 BP 143/70 01/21/21 08:17 Pulse Ox 87 L 01/21/21 08:17 Intake & Output 01/20/21 01/21/21 01/21/21 18:59 06:59 18:59 Intake Total 920 240 Output Total 300 250 Balance 620 -250 240 Weight 91 kg Intake: Oral 920 240 Output: Urine 300 250 Other: Voiding Method Urinal Urinal # Voids 1 1 - Exam PHYSICAL EXAM: VITAL SIGNS: Reviewed. GENERAL: Well-developed in no acute distress. HEENT: Head is normocephalic. Pupils are equal, round. Sclerae anicteric. Mucous membranes of the mouth are moist. Neck supple. No JVD or thyromegaly LUNGS: Respirations even and unlabored. Lungs diminished with expiratory wheezing noted in all lung limon. HEART: Regular rate and rhythm. S1 and S2 heard. ABDOMEN: Soft. Nondistended. Nontender. EXTREMITIES: Normal range of motion. No clubbing or cyanosis. Peripheral pulses intact. trace to 1+ bilateral lower extremity edema NEUROLOGIC: Awake and alert. Oriented x 3. - Labs CBC & Chem 7: 01/15/21 03:15 01/21/21 07:25 Labs: Abnormal Lab Results - Last 24 Hours (Table) 01/20/21 01/20/21 01/20/21 Range/Units 08:52 08:52 10:04 PT 20.4 H (9.0-12.0) sec INR 2.1 H (<1.2) ABG pH 7.21 L (7.35-7.45) ABG pCO2 92 H* (35-45) mmHg ABG HCO3 37 H (21-25) mmol/L ABG Total CO2 40 H (19-24) mmol/L Chloride 95 L (98-107) mmol/L Carbon Dioxide 41 H* (22-30) mmol/L BUN 63 H (9-20) mg/dL Creatinine 1.68 H (0.66-1.25) mg/dL Glucose 121 H (74-99) mg/dL POC Glucose (mg/dL) (75-99) mg/dL Magnesium (1.6-2.3) mg/dL 01/20/21 01/20/21 01/20/21 Range/Units 11:54 16:54 20:34 PT (9.0-12.0) sec INR (<1.2) ABG pH (7.35-7.45) ABG pCO2 (35-45) mmHg ABG HCO3 (21-25) mmol/L ABG Total CO2 (19-24) mmol/L Chloride (98-107) mmol/L Carbon Dioxide (22-30) mmol/L BUN (9-20) mg/dL Creatinine (0.66-1.25) mg/dL Glucose (74-99) mg/dL POC Glucose (mg/dL) 159 H 159 H 187 H (75-99) mg/dL Magnesium (1.6-2.3) mg/dL 01/21/21 01/21/21 01/21/21 Range/Units 06:26 07:25 07:25 PT 31.3 H (9.0-12.0) sec INR 3.2 H (<1.2) ABG pH (7.35-7.45) ABG pCO2 (35-45) mmHg ABG HCO3 (21-25) mmol/L ABG Total CO2 (19-24) mmol/L Chloride 97 L (98-107) mmol/L Carbon Dioxide 34 H (22-30) mmol/L BUN 69 H (9-20) mg/dL Creatinine 1.78 H (0.66-1.25) mg/dL Glucose 133 H (74-99) mg/dL POC Glucose (mg/dL) 150 H (75-99) mg/dL Magnesium 2.9 H (1.6-2.3) mg/dL Assessment and Plan Plan: Assessment and plan #1 acute on chronic hypoxic and hypercapnic respiratory failure, secondary to [place] PD exacerbation #2 paroxysmal atrial fibrillation, currently in normal sinus rhythm, anticoagulated with Coumadin #3 acute kidney injury #4 hypertension #5 chronic diastolic congestive heart failure #6 hyperlipidemia #7 history of nicotine dependence Plan From cardiology's perspective, we'll continue the patient on his current dose of Coumadin to maintain an INR in the range of 2-2.5. Continue Lipitor 20 mg daily, Cardizem 120 mg daily, metoprolol 100 mg daily. Diuretics as per nephrology. Resume ALFIE inhibitor when okay with nephrology. Further recommendations to follow. DNP note has been reviewed, I agree with a documented findings and plan of care. Patient was seen and examined.
--- NOTE | 2021-01-21 09:53 | P.PN ---
Subjective Patient is seen in follow-up for acute kidney injury. Renal function fairly stable. Currently on BiPAP. Sitting up in chair. Feels tired. No chest pain or shortness of breath. Alkalosis improved. Vital signs are stable. General: The patient appeared well nourished and normally developed. HEENT: On BiPAP. LUNGS: Breath sounds decreased. HEART: Rate and Rhythm are regular. ABDOMEN: Abdominal exam reveals normal bowel sounds. EXTREMITITES: No edema. Objective - Vital Signs Vital signs: Vital Signs Temp 98.5 F 01/21/21 08:17 Pulse 94 01/21/21 08:17 Resp 18 01/21/21 08:17 BP 143/70 01/21/21 08:17 Pulse Ox 87 L 01/21/21 08:17 Intake & Output 01/20/21 01/21/21 01/21/21 18:59 06:59 18:59 Intake Total 920 240 Output Total 300 250 0 Balance 620 -250 240 Weight 91 kg Intake: Oral 920 240 Output: Urine 300 250 0 Stool 0 Other: Voiding Method Urinal Urinal # Voids 1 1 0 # Bowel Movements 0 - Labs CBC & Chem 7: 01/15/21 03:15 01/21/21 07:25 Labs: Abnormal Lab Results - Last 24 Hours (Table) 01/20/21 01/20/21 01/20/21 Range/Units 08:52 10:04 11:54 PT 20.4 H (9.0-12.0) sec INR 2.1 H (<1.2) ABG pH 7.21 L (7.35-7.45) ABG pCO2 92 H* (35-45) mmHg ABG HCO3 37 H (21-25) mmol/L ABG Total CO2 40 H (19-24) mmol/L Chloride (98-107) mmol/L Carbon Dioxide (22-30) mmol/L BUN (9-20) mg/dL Creatinine (0.66-1.25) mg/dL Glucose (74-99) mg/dL POC Glucose (mg/dL) 159 H (75-99) mg/dL Magnesium (1.6-2.3) mg/dL 01/20/21 01/20/21 01/21/21 Range/Units 16:54 20:34 06:26 PT (9.0-12.0) sec INR (<1.2) ABG pH (7.35-7.45) ABG pCO2 (35-45) mmHg ABG HCO3 (21-25) mmol/L ABG Total CO2 (19-24) mmol/L Chloride (98-107) mmol/L Carbon Dioxide (22-30) mmol/L BUN (9-20) mg/dL Creatinine (0.66-1.25) mg/dL Glucose (74-99) mg/dL POC Glucose (mg/dL) 159 H 187 H 150 H (75-99) mg/dL Magnesium (1.6-2.3) mg/dL 01/21/21 01/21/21 Range/Units 07:25 07:25 PT 31.3 H (9.0-12.0) sec INR 3.2 H (<1.2) ABG pH (7.35-7.45) ABG pCO2 (35-45) mmHg ABG HCO3 (21-25) mmol/L ABG Total CO2 (19-24) mmol/L Chloride 97 L (98-107) mmol/L Carbon Dioxide 34 H (22-30) mmol/L BUN 69 H (9-20) mg/dL Creatinine 1.78 H (0.66-1.25) mg/dL Glucose 133 H (74-99) mg/dL POC Glucose (mg/dL) (75-99) mg/dL Magnesium 2.9 H (1.6-2.3) mg/dL Assessment and Plan Plan: Assessment: 1. Acute kidney injury secondary to ATN secondary to hemodynamic instability. Renal function stable. Creatinine 1.78. UA benign. No evidence of hydronep hrosis. 2. Hyperkalemia secondary to acute kidney injury. Improved. 3. Acute on chronic hypercapnic respiratory failure. 4. Metabolic alkalosis. Mostly compensatory for the underlying respiratory acidosis. Maintained on Diamox. Better. 5. Chronic diastolic CHF. Currently compensated. 6. COPD exacerbation. 7. A. fib. Cardiology following. On Cardizem and metoprolol. Also on anticoagulation. Plan: Stop Diamox. Remains off fluids and diuretics. Avoid nephrotoxins. Encouraged oral intake. Repeat electrolytes in the morning.
[2021-01-21] MEDS: FORMOTEROL FUMARATE 20 MCG/2 ML NEBU INHALATION SCH ×2 (10:21→20:07)
[2021-01-21] MEDS: BUDESONIDE 1 MG/2 ML NEBU INHALATION SCH ×2 (10:21→20:07)
[2021-01-21] MEDS: IPRATROPIUM-ALBUTEROL 3 ML NEB INHALATION SCH ×4 (10:22→20:07)
[2021-01-21 11:57] LABS: Glucose,Whole Blood 148 mg/dL (75-99)
[2021-01-21 16:32] LABS: Glucose,Whole Blood 145 mg/dL (75-99)
--- NOTE | 2021-01-21 17:02 | P.PN ---
Subjective Progress Note Date: 01/21/21 Principal diagnosis: Acute exacerbation of chronic obstructive pulmonary disease with hypoxemic and hypercapnic respiratory failure Patient was reevaluated today on 01/16/2021, remains on oxygen remains on multiple bronchodilators he is on prednisone and Solu-Medrol, and I went ahead and discontinued Solu-Medrol kept him on prednisone. He is on multiple bronchodilators, feeling better today compared to yesterday. Less shortness of breath but continues to have intermittent cough and wheezing. When I saw the patient earlier today, he was noted to be comfortable, however as I'm dictating on this patient, apparently an ABG was done in the last half hour and it showed a pO2 of 61 pCO2 of 96 pH of 7.4, hence I recommended immediate placement of this patient on BiPAP here placed on IPAP 14 EPAP of 6 FiO2 of 50%. I will go ahead and restart the patient on Solu-Medrol, and discontinue prednisone. Chest x-ray on admission showed mild subsegmental atelectasis. Reevaluated today on 01/17/2021, we are seeing this patient for acute exacerbation of COPD, acute on chronic hypoxia and hypercapnic respiratory failure. Patient required to be placed on BiPAP overnight, his gases reflected relative hypoxemia and hypercapnia with pCO2 was high as 90 and pH of 7.24. Patient is now back on nasal cannula, sitting, eating breakfast, tells me that he is slightly better today compared to yesterday. Labs today were reviewed, he had INR of 2.0, therapeutic. ABG from yesterday showed a pO2 of 61 pCO2 of 96 pH of 7.24 and this was on 4 L nasal cannula. Patient had ultrasound of the abdomen yesterday, there was no evidence of hydronephrosis or nephrolithiasis. Reevaluated today on 01/18/2021, we are following up on this patient for his acute exacerbation of COPD and acute on chronic hypoxic and hypercapnic respiratory failure. Patient is doing better, breathing easier, intermittently requiring BiPAP, but he is now on 3 L nasal cannula, continues to have cough wheezing and shortness of breath intermittently. INR is 1.9. His bicarb is 44 BUN is 77 creatinine 1.57, steadily improving. Progress note dated January 19, 2021. 70-year-old white male, well-known to our service. The patient has a history of severe COPD. The patient was admitted a couple days ago, with a COPD exacerbation. Currently, he is feeling better. His breathing is improved. He has both hypoxemic and hypercapnic respiratory failure. Currently, he is on 5 L nasal cannula. Saturations are 90%. PT 18.2, INR 1.8, sodium 143, potassium 5.6, chlorides 98, CO2 39, anion gap 6, BUN 62, creatinine 1.65. A brain CT was done today, which did not show anything acute. Progress note dated 01/20/2021. 70-year-old male, well-known to our service. The patient has end-stage COPD. His FEV1, when last checked, was 26%. That makes him, stage IV disease area is chronically on oxygen therapy with both hypoxemic and hypercapnic respiratory failure chronically. The patient is currently on BiPAP. Settings include 15 IPAP and EPAP 6, and 30%. His blood gases show both hypoxemic and hypercapnic respiratory failure which explains why he is so lethargic and somnolent. His daughter was in the room and I explained that to her today. In addition, we talked about CODE STATUS about intubation with mechanical ventilation. They both agree, that he would not want to be on life support. He has given it much salt. He does realize he has end-stage lung disease. He is just hoping to be able get good enough, to go home. He has not seen us in the office for more than a year. Lab work from today shows a PT 20.4, INR 2.1, sodium 140, potassium 4.9, chlorides 95, CO2 41, anion gap 4, BUN 63, and creatinine 1.68. Based on the carbon dioxide or bicarbonate concentration of 41, his baseline PaC O2 should be right around 70 + or -2 mmHg. He had a blood gas done today which showed a PaO2 of 93, pCO2 of 92, and a pH of 7.21. If the CO2 of 92 is corrected down to 70, his pH would be normal. Chest x-ray showed no acute pulmonary process. The patient is seen today 01/21/2021 in follow-up on the selective care unit. He is currently sitting up in a chair at the bedside. A bit more awake and alert today. On BiPAP 15/6 and 30% FiO2. His is at the bedside. INR 3.2. Sodium 139. Potassium 4.6. Creatinine 1.78. He remains on DuoNeb inhalations, Pulmicort and Perforomist inhalations, IV Solu-Medrol. Anticoagulated with warfarin. Objective - Vital Signs Vital signs: Vital Signs Temp 98 F 01/21/21 12:10 Pulse 78 01/21/21 16:10 Resp 18 01/21/21 13:00 BP 117/58 01/21/21 12:10 Pulse Ox 91 L 01/21/21 12:10 Intake & Output 01/20/21 01/21/21 01/21/21 18:59 06:59 18:59 Intake Total 920 480 Output Total 300 250 225 Balance 620 -250 255 Weight 91 kg Intake: Oral 920 480 Output: Urine 300 250 225 Stool 0 Other: Voiding Method Urinal Urinal Urinal # Voids 1 1 0 # Bowel Movements 0 - Exam GENERAL EXAM: More awake and alert today, up at the bedside, 71-year-old gentleman, currently on BiPAP at 15/6, and 30%. HEAD: Normocephalic/atraumatic. The patient has a cushingoid facies. EENT: PERRLA, EOMI, nonicteric, moist mucous membranes, no neck masses, no JVD, no stridor CHEST: No chest wall deformity. Symmetrical expansion. LUNGS: Diminished air entry , scattered rhonchi and wheezes on forced expiratory maneuver. CVS: Regular rate and rhythm, normal S1 and S2, no gallops, no murmurs, no rubs. Heart rate 75 bpm. ABDOMEN: Obese, Soft, nontender. No hepatosplenomegaly, normal bowel sounds, no guarding or rigidity. EXTREMITIES: No clubbing, 1+ lower extremity edema, no cyanosis, 2+ pulses and upper and lower extremities. No myoclonic jerks were noted today. SPINE: No scoliosis or deformity SKIN: No rashes CENTRAL NERVOUS SYSTEM: Alert and oriented 3 no gross focal deficit PSYCHIATRIC: Normal mood, affect and normal mental status examination. - Labs CBC & Chem 7: 01/15/21 03:15 01/21/21 07:25 Labs: Abnormal Lab Results - Last 24 Hours (Table) 01/20/21 01/21/21 01/21/21 Range/Units 20:34 06:26 07:25 PT (9.0-12.0) sec INR (<1.2) Chloride 97 L (98-107) mmol/L Carbon Dioxide 34 H (22-30) mmol/L BUN 69 H (9-20) mg/dL Creatinine 1.78 H (0.66-1.25) mg/dL Glucose 133 H (74-99) mg/dL POC Glucose (mg/dL) 187 H 150 H (75-99) mg/dL Magnesium 2.9 H (1.6-2.3) mg/dL 01/21/21 01/21/21 01/21/21 Range/Units 07:25 11:56 16:30 PT 31.3 H (9.0-12.0) sec INR 3.2 H (<1.2) Chloride (98-107) mmol/L Carbon Dioxide (22-30) mmol/L BUN (9-20) mg/dL Creatinine (0.66-1.25) mg/dL Glucose (74-99) mg/dL POC Glucose (mg/dL) 148 H 145 H (75-99) mg/dL Magnesium (1.6-2.3) mg/dL Assessment and Plan Assessment: 1 Acute on chronic hypoxic and hypercapnic respiratory failure secondary to COPD exacerbation. 2 Acute kidney injury. 3 Acute hyperkalemia secondary to acute kidney injury. 4 Paroxysmal atrial fibrillation. 5 Benign essential hypertension. 6 Degenerative joint disease. 7 Chronic diastolic congestive heart failure Plan: The patient was seen and evaluated by Dr. Dickson Continues on BiPAP 15/6 and 30% FiO2 His is at the bedside He is a DO NOT RESUSCITATE/DO NOT INTUBATE CODE STATUS Possibly home tomorrow. Considering hospice I, the cosigning physician, performed a history & physical examination of the patient. Lungs sounds with end expiratory wheeze, few scattered rhonchi. Maintaining good O2 saturations in the 90s on BiPAP 15/6 and 30% FiO2. I discussed the assessment and plan of care with my nurse practitioner, Kaycee Yoo. I attest to the above note as dictated by her.
[2021-01-21] MEDS ORDERED: WARFARIN 2.5 MG TAB PO ONE (18:00)
--- NOTE | 2021-01-21 18:19 | P.PN ---
Progress Note - Text Progress Note Date: 01/21/21 History of presenting complaint: Patient is a 70-year-old male, follows with PCP Dr. Cali with a PMH of advanced COPD, chronic hypoxic respiratory failure on 4 L nasal cannula oxygen continuously at home, systolic CHF, hypertension, A. fib on Coumadin, and hyperlipidemia presented to the emergency room with complaints of gradually worsening shortness of breath. The patient is accompanied by his at the bedside. Patient reports that over the past few weeks, he has noticed that he now gets winded with even minimal exertion such as walking to the bathroom. He reports that even after resting, it takes him a lot longer to get back to his baseline after the above-mentioned exertion. She sleeps in a reclined position which is unchanged over the past few weeks. He reports some chest tightness with these episodes which resolves with rest. Also reports that his cough is now productive with more yellow-green phlegm than usual. He also reports long- standing unchanged lower extremity pitting edema bilaterally. Denied fevers at home. Also denied abdominal pain, nausea, vomiting, diarrhea, dizziness. In the emergency room a chest x-ray revealed mild subsegmental atelectasis bilateral bases. EKG revealed normal sinus rhythm at [address]/T-wave changes noted as reviewed by me. Laboratory evaluation was remarkable for WBC count 14.5, hemoglobin 11.1, INR 3.2, sodium 133, potassium 6.7 (hemolyzed), chloride 90, CO2 35, BUN 71, creatinine 2.53, lactic acid 2.1, troponin 0.012, coronavirus PCR negative, and proBNP 542. She was given nebulizer treatments and is being admitted to the hospital for further management. Admitted with a diagnosis of COPD exacerbation . Placed on bronchodilators and steroids. Patient also had hypoxic encephalopathy. Blood gases showed CO2 retention. Swished over to BiPAP. Patient went into A. fib with rapid ventricular rate. Moved to the cardiology floor. Converted to sinus rhythm. Had a lengthy talk with patient's daughter the bedside. On January 20 Today: Patient sitting up in a chair. On 4 L of nasal cannula. Breathing better. at the bedside. did inform me that Dr. Quarles see the patient a while ago and told him that he could not do much for him as his COPD is other advanced end-stage. Eating fair. Review of systems: Was done for constitutional, cardiovascular, GI, pulmonary. relevant finding as above Active Medications Albuterol/Ipratropium (Ipratropium-Albuterol 3 Ml Neb) 3 ml INHALATION QID [facility] Last Admin: 01/21/21 15:53 Dose: 3 ml Documented by: Albuterol/Ipratropium (Ipratropium-Albuterol 3 Ml Neb) 3 ml INHALATION RT-Q2H PRN PRN Reason: Shortness Of Breath Or Wheezing Last Admin: 01/16/21 03:11 Dose: 3 ml Documented by: Allopurinol (Allopurinol 100 Mg Tab) 100 mg PO DAILY [facility] Last Admin: 01/21/21 08:19 Dose: 100 mg Documented by: Aspirin (Aspirin 81 Mg) 81 mg PO DAILY [facility] Last Admin: 01/21/21 08:19 Dose: 81 mg Documented by: Atorvastatin Calcium (Atorvastatin 20 Mg Tab) 20 mg PO DAILY [facility] Last Admin: 01/21/21 08:19 Dose: 20 mg Documented by: Budesonide (Budesonide 1 Mg/2 Ml Nebu) 1 mg INHALATION RT-BID [facility] Last Admin: 01/21/21 10:21 Dose: Not Given Documented by: Diltiazem HCl (Diltiazem Cd 120 Mg Cap.Er.24h) 120 mg PO DAILY [facility] Last Admin: 01/21/21 08:19 Dose: 120 mg Documented by: Formoterol Fumarate (Formoterol Fumarate 20 Mcg/2 Ml Nebu) 20 mcg INHALATION RT-BID [facility] Last Admin: 01/21/21 10:21 Dose: Not Given Documented by: Insulin Aspart (Insulin Aspart (Novolog) 100 Unit/Ml Vial) 0 unit SQ ACHS [facility]; Protocol Last Admin: 01/21/21 17:16 Dose: 2 unit Documented by: Latanoprost (Latanoprost 0.005% Ophth Drops 2.5 Ml Btl) 1 drops BOTH EYES HS [facility] Last Admin: 01/20/21 20:58 Dose: 1 drops Documented by: Methylprednisolone Sodium Succinate (Methylprednisolone Sod Succi 40 Mg/Ml 1 Ml Vial) 40 mg IV Q6HR [facility] Last Admin: 01/21/21 17:16 Dose: 40 mg Documented by: Metoprolol Succinate (Metoprolol Succinate (Er) 100 Mg Tab.Er.24h) 100 mg PO DAILY [facility] Last Admin: 01/21/21 08:19 Dose: 100 mg Documented by: Miscellaneous Information (Warfarin Per Pharmacy) 1 each MISCELLANE DIRECTED PRN; Protocol PRN Reason: Per Protocol Sodium Chloride (Sodium Chloride 5% Ophth Drops 15 Ml Btl) 1 drops RIGHT EYE DAILY [facility] Last Admin: 01/21/21 08:19 Dose: 1 drops Documented by: On examination: VITAL SIGNS: 97.8, 74, 18, 122/73, 90% on BiPAP/30% FiO2 GENERAL APPEARANCE: Sitting upon a chair, nasal cannula, awake HEENT: Normal external appearance of nose and ear. Oral cavity normal EYES: Pupils equal. Conjunctiva normal. NECK: JVD not raised. Mass not palpable. RESPIRATORY: Respiratory effort increased. Diminished breath sounds, prolonged expiration, CARDIOVASCULAR: First and second sounds normal. Some edema. ABDOMEN: Soft. Liver and spleen not palpable. No tenderness. No mass palpable. PSYCHIATRY: AO 3 INVESTIGATIONS, reviewed in the clinical context: January 21: INR 3.2 potassium 4.6 creatinine 1.78 January 20: INR 2.1 ABG: PH 7.2 pCO2 92 pO2 93 potassium 4.9 creatinine 1.68 January 19: INR 1.9 potassium 5.9 creatinine 1.8 to January 18: Potassium 4.4 bicarbonate 44 creatinine 1.57 INR 1.9 troponin I 0.019 TSH 1.1 January 17: INR 2.0 potassium 4.5 creatinine 1.79 January 16: ABG-T8 7 0.24, pCO2 96, pO2 41. Potassium 5.5 creatinine 1.9 WBC 15.4 hemoglobin 11.3 platelets 324 potassium 5.7 bun 66 creatinine 2.31 Troponin I 2 negative LDL 53 2-D echocardiogram: Moderate concentric LVH. EF 55-60% right ventricle severely enlarged EKG tracing personally reviewed by me-normal sinus rhythm Chest x-ray film personally reviewed by me-right lung base atelectasis Plan: Acute COPD exacerbation, in a previous smoker, improving slowly -On IV Solu-Medrol, bronchodilators, inhaled steroids, cutback on IV Solu-Medrol CKD stage 3, likely from nephrosclerosis -Monitor BMP . Consult nephrology. ESTER Motrin. Renal diet Acute kidney injury possibly ATN -IV fluids. Improving. Creatinine from 2.5 , has come down Hyperkalemia, due to ZABRINA - Kayexalate. Repeat dose. Stop Zestril. Potassium was gone up again.- Corrected Alkalosis, may be due to over-diuresis and volume contraction -Monitor for now Leukocytosis, likely due to home oral prednisone use -Monitor for now Paroxysmal Afib, in sinus rhythm on presentation, with a rapid ventricular rate on January 18. Back into sinus rhythm -C/w Coumadin. Cardiology consulted. Started on Cardizem CD 120 mg daily Obesity BMI 39.9 -Weight loss measures and follow with PCP as outpatient Chronic cor pulmonale -Continue with diuretics Essential hypertension -Continue Toprol-XL. Hold off Zestril for now because of hyperkalemia Hyperlipidemia -Continue with Lipitor Primary osteoarthritis -Use analgesics when necessary Chronic hypoxic respiratory failure on home oxygen 4 L -Continue with oxygen Acute hypoxic metabolic encephalopathy hypoxic-slowly improving Acute hypoxic and hypercapnic respiratory failure, severe-slow to respond -Responding well to BiPAP initially. Nasal cannula was attempted. Back on BiPAP. Had a very lengthy talk with patient's at the bedside. Several questions were answered. Including patient's but we status and renal status. She had more specific questions regarding the patient's but we status. Did ask her discussed this with patient's lead former Dr. Liao. She does understand and was reminded oral prognosis is guarded giving his advanced stage of COPD. Total time spent today about 40 minutes with over 25 minutes of discussion
[2021-01-21 20:55] LABS: Glucose,Whole Blood 172 mg/dL (75-99)
[2021-01-21] MEDS: LATANOPROST 0.005% OPHTH DROPS 2.5 ML BTL BOTH EYES SCH (21:20)
[2021-01-22] MEDS: methylPREDNISolone SOD SUCCI 40 MG/ML 1 ML VIAL IV SCH ×2 (01:11→07:00)
[2021-01-22 06:33] LABS: Glucose,Whole Blood 141 mg/dL (75-99)
[2021-01-22] MEDS: INSULIN ASPART (NovoLOG) 100 UNIT/ML VIAL SQ SCH ×4 (06:41→20:43)
[2021-01-22 08:09] LABS: INR 4.1 (<1.2); Prothrombin Time 39.4 sec (9.0-12.0)
[2021-01-22 08:17] LABS: Calcium 8.7 mg/dL (8.4-10.2); Magnesium 3.1 mg/dL (1.6-2.3); Potassium 4.9 mmol/L (3.5-5.1)
[2021-01-22] MEDS: DILTIAZEM CD 120 MG CAP.ER.24H PO SCH (08:36)
[2021-01-22] MEDS: allopurinoL 100 MG TAB PO SCH (08:36)
[2021-01-22] MEDS: METOPROLOL SUCCINATE (ER) 100 MG TAB.ER.24H PO SCH (08:36)
[2021-01-22] MEDS: ASPIRIN 81 MG PO SCH (08:36)
[2021-01-22] MEDS: ATORVASTATIN 20 MG TAB PO SCH (08:36)
[2021-01-22] MEDS: SODIUM CHLORIDE 5% OPHTH DROPS 15 ML BTL RIGHT EYE SCH (08:37)
[2021-01-22] MEDS ORDERED: ATORVASTATIN 20 MG TAB PO ONE (09:00)
[2021-01-22] MEDS ORDERED: ATORVASTATIN 40 MG TAB PO SCH (09:00)
[2021-01-22] MEDS ORDERED: METOPROLOL SUCCINATE (ER) 50 MG TAB.ER.24H PO SCH (09:00)
[2021-01-22] MEDS: FORMOTEROL FUMARATE 20 MCG/2 ML NEBU INHALATION SCH ×2 (09:01→20:38)
[2021-01-22] MEDS: BUDESONIDE 1 MG/2 ML NEBU INHALATION SCH ×2 (09:01→20:38)
[2021-01-22] MEDS: IPRATROPIUM-ALBUTEROL 3 ML NEB INHALATION SCH ×4 (09:01→20:38)
--- NOTE | 2021-01-22 09:04 | P.PN ---
Subjective This is a pleasant 71-year-old male past medical history consistent for advanced COPD on home oxygen, hypertension, dyslipidemia, paroxysmal atrial fibrillation status post ablation on long-term anticoagulation, former nicotine dependence and morbid obesity. He follows in the office Dr. Saldivar. He is seen and examined sitting up in bed in no acute distress. He continues to feel short of breath. He has no symptoms of chest pain, dizziness or palpitations. Blood pressure 138/76 heart rate 62 afebrile maintaining oxygen saturation on nasal cannula. Laboratory data reviewed, INR 4.1, sodium 138, potassium 4.9, magnesium 3.1 and creatinine 1.75. Currently maintained on aspirin 81 mg daily, Coumadin, atorvastatin 20 mg daily, diltiazem 120 mg daily and Toprol 100 mg daily. Nephrology is following secondary to acute kidney injury and is recommending holding diuretics at this time. Neurology is following secondary to TIA. Echocardiogram obtained on this admission reveals preserved LV systolic function with ejection fraction 55-60%. GENERAL: Well-appearing, well-nourished and in no acute distress. NECK: Supple without JVD or thyromegaly. LUNGS: Expiratory wheezes. No rales or rhonchi. Respiration equal and unlabored. HEART: Regular rate and rhythm without murmurs, rubs or gallops. S1 and S2 heard. EXTREMITIES: Normal range of motion, 1+ bilateral lower extremity edema. No clubbing or cyanosis. Peripheral pulses intact. ASSESSMENT Paroxysmal atrial fibrillation on long-term anticoagulation, currently mainta ining sinus mechanism Acute hypoxic respiratory failure secondary to acute exacerbation of COPD TIA Hypertension Dyslipidemia Obesity, BMI 30 Former nicotine dependence PLAN He is having trouble with therapeutic INR, therefore we will check the cost of Eliquis 5 mg BID. If reasonable we will make the change tomorrow. Decrease toprol to 50 mg daily due to ongoing wheezing and controlled heart rat es. Nurse Practitioner note has been reviewed, I agree with a documented findings and plan of care. Patient was seen and examined. Objective - Vital Signs Vital signs: Vital Signs Temp 97.8 F 01/22/21 04:00 Pulse 62 01/22/21 04:00 Resp 17 01/22/21 04:00 BP 138/76 01/22/21 04:00 Pulse Ox 92 L 01/22/21 04:00 Intake & Output 01/21/21 01/22/21 01/22/21 18:59 06:59 18:59 Intake Total 720 Output Total 225 550 Balance 495 -550 Weight 92 kg Intake: Oral 720 Output: Urine 225 550 Stool 0 0 Other: Voiding Method Urinal Urinal # Voids 0 # Bowel Movements 0 - Labs CBC & Chem 7: 01/15/21 03:15 01/22/21 07:10 Labs: Abnormal Lab Results - Last 24 Hours (Table) 01/21/21 01/21/21 01/21/21 Range/Units 11:56 16:30 20:53 PT (9.0-12.0) sec INR (<1.2) Carbon Dioxide (22-30) mmol/L BUN (9-20) mg/dL Creatinine (0.66-1.25) mg/dL Glucose (74-99) mg/dL POC Glucose (mg/dL) 148 H 145 H 172 H (75-99) mg/dL Magnesium (1.6-2.3) mg/dL 01/22/21 01/22/21 01/22/21 Range/Units 06:30 07:10 07:10 PT 39.4 H (9.0-12.0) sec INR 4.1 H (<1.2) Carbon Dioxide 35 H (22-30) mmol/L BUN 71 H (9-20) mg/dL Creatinine 1.75 H (0.66-1.25) mg/dL Glucose 130 H (74-99) mg/dL POC Glucose (mg/dL) 141 H (75-99) mg/dL Magnesium 3.1 H (1.6-2.3) mg/dL
--- NOTE | 2021-01-22 10:18 | P.PN ---
Subjective Progress Note Date: 01/22/21 Acute exacerbation of chronic obstructive pulmonary disease with hypoxemic and hypercapnic respiratory failure Patient was reevaluated today on 01/16/2021, remains on oxygen remains on multiple bronchodilators he is on prednisone and Solu-Medrol, and I went ahead and discontinued Solu-Medrol kept him on prednisone. He is on multiple bronchodilators, feeling better today compared to yesterday. Less shortness of breath but continues to have intermittent cough and wheezing. When I saw the patient earlier today, he was noted to be comfortable, however as I'm dictating on this patient, apparently an ABG was done in the last half hour and it showed a pO2 of 61 pCO2 of 96 pH of 7.4, hence I recommended immediate placement of this patient on BiPAP here placed on IPAP 14 EPAP of 6 FiO2 of 50%. I will go ahead and restart the patient on Solu-Medrol, and discontinue prednisone. Chest x-ray on admission showed mild subsegmental atelectasis. Reevaluated today on 01/17/2021, we are seeing this patient for acute exacerbation of COPD, acute on chronic hypoxia and hypercapnic respiratory failure. Patient required to be placed on BiPAP overnight, his gases reflected relative hypoxemia and hypercapnia with pCO2 was high as 90 and pH of 7.24. Patient is now back on nasal cannula, sitting, eating breakfast, tells me that he is slightly better today compared to yesterday. Labs today were reviewed, he had INR of 2.0, therapeutic. ABG from yesterday showed a pO2 of 61 pCO2 of 96 pH of 7.24 and this was on 4 L nasal cannula. Patient had ultrasound of the abdomen yesterday, there was no evidence of hydronephrosis or nephrolithiasis. Reevaluated today on 01/18/2021, we are following up on this patient for his acute exacerbation of COPD and acute on chronic hypoxic and hypercapnic respiratory failure. Patient is doing better, breathing easier, intermittently requiring BiPAP, but he is now on 3 L nasal cannula, continues to have cough wheezing and shortness of breath intermittently. INR is 1.9. His bicarb is 44 BUN is 77 creatinine 1.57, steadily improving. Progress note dated January 19, 2021. 70-year-old white male, well-known to our service. The patient has a history of severe COPD. The patient was admitted a couple days ago, with a COPD exacerbation. Currently, he is feeling better. His breathing is improved. He has both hypoxemic and hypercapnic respiratory failure. Currently, he is on 5 L nasal cannula. Saturations are 90%. PT 18.2, INR 1.8, sodium 143, potassium 5.6, chlorides 98, CO2 39, anion gap 6, BUN 62, creatinine 1.65. A brain CT was done today, which did not show anything acute. Progress note dated 01/20/2021. 70-year-old male, well-known to our service. The patient has end-stage COPD. His FEV1, when last checked, was 26%. That makes him, stage IV disease area is chronically on oxygen therapy with both hypoxemic and hypercapnic respiratory failure chronically. The patient is currently on BiPAP. Settings include 15 IPAP and EPAP 6, and 30%. His blood gases show both hypoxemic and hypercapnic respiratory failure which explains why he is so lethargic and somnolent. His daughter was in the room and I explained that to her today. In addition, we talked about CODE STATUS about intubation with mechanical ventilation. They both agree, that he would not want to be on life support. He has given it much salt. He does realize he has end-stage lung disease. He is just hoping to be able get good enough, to go home. He has not seen us in the office for more than a year. Lab work from today shows a PT 20.4, INR 2.1, sodium 140, potassium 4.9, chlorides 95, CO2 41, anion gap 4, BUN 63, and creatinine 1.68. Based on the carbon dioxide or bicarbonate concentration of 41, his baseline PaCO2 should be right around 70 + or -2 mmHg. He had a blood gas done today which showed a PaO2 of 93, pCO2 of 92, and a pH of 7.21. If the CO2 of 92 is corrected down to 70, his pH would be normal. Chest x-ray showed no acute pulmonary process. The patient is seen today 01/21/2021 in follow-up on the selective care unit. He is currently sitting up in a chair at the bedside. A bit more awake and alert today. On BiPAP 15/6 and 30% FiO2. His is at the bedside. INR 3.2. Sodium 139. Potassium 4.6. Creatinine 1.78. He remains on DuoNeb inhalations, Pulmicort and Perforomist inhalations, IV Solu-Medrol. Anticoagulated with warfarin. On today's evaluation of 01/22/2021, the patient is being seen in follow-up. The patient on BiPAP at a pressure 15/6 cm of water with an FiO2 of 30%. His acute on chronic hypoxic and hypercapnic respiratory failure. He has been quite short of breath. Most recent blood gases from 01/20/2021 showed acute on top of chronic hypercapnic respiratory failure with a pH of 7.21 and a pCO2 of 93 and pO2 of 93. The patient has chronic advanced COPD. Hospice being considered. Note that he also has metabolic alkalosis. Serum bicarbs of 34. The patient's creatinine was also elevated as the patient developed an acute kidney injury.. INR is therapeutic. The patient is currently on budesonide nebulized treatment twice a day, DuoNeb nebulized treatments 4 times a day, is also on IV Solu- Medrol 40 mg every 6 hours. His most recent chest x-ray from 01/20/2021 showed atelectatic changes a right midlung, otherwise there is no airspace disease. He is lethargic but is arousable. The patient is utilizing BiPAP overnight. Neurologically is intact is following commands and answering questions. No altered mentation. He has a episode of TIA from which she recovered. The patient's has also left carotid stenosis. His INR is at 4.1. Objective - Vital Signs Vital signs: Vital Signs Temp 97.8 F 01/22/21 04:00 Pulse 80 01/22/21 09:21 Resp 17 01/22/21 04:00 BP 138/76 01/22/21 04:00 Pulse Ox 92 L 01/22/21 04:00 Intake & Output 01/21/21 01/22/21 01/22/21 18:59 06:59 18:59 Intake Total 720 Output Total 225 550 Balance 495 -550 Weight 92 kg Intake: Oral 720 Output: Urine 225 550 Stool 0 0 Other: Voiding Method Urinal Urinal # Voids 0 # Bowel Movements 0 - Exam GENERAL EXAM: More awake and alert today, up at the bedside, 71-year-old gentleman, currently on BiPAP at 15/6, and 30%. Otherwise, the patient was on oxygen at 4 L per minute nasal cannula. He is awake and following commands and answering questions. HEAD: Normocephalic/atraumatic. The patient has a cushingoid facies. EENT: PERRLA, EOMI, nonicteric, moist mucous membranes, no neck masses, no JVD, no stridor CHEST: No chest wall deformity. Symmetrical expansion. LUNGS: Diminished air entry , scattered rhonchi and wheezes on forced expiratory maneuver. CVS: Regular rate and rhythm, normal S1 and S2, no gallops, no murmurs, no rubs. Heart rate 75 bpm. ABDOMEN: Obese, Soft, nontender. No hepatosplenomegaly, normal bowel sounds, no guarding or rigidity. EXTREMITIES: No clubbing, 1+ lower extremity edema, no cyanosis, 2+ pulses and upper and lower extremities. No myoclonic jerks were noted today. SPINE: No scoliosis or deformity SKIN: No rashes CENTRAL NERVOUS SYSTEM: Alert and oriented 3 no gross focal deficit PSYCHIATRIC: Normal mood, affect and normal mental status examination. - Labs CBC & Chem 7: 01/15/21 03:15 01/22/21 07:10 Labs: Abnormal Lab Results - Last 24 Hours (Table) 01/21/21 01/21/21 01/21/21 Range/Units 11:56 16:30 20:53 PT (9.0-12.0) sec INR (<1.2) Carbon Dioxide (22-30) mmol/L BUN (9-20) mg/dL Creatinine (0.66-1.25) mg/dL Glucose (74-99) mg/dL POC Glucose (mg/dL) 148 H 145 H 172 H (75-99) mg/dL Magnesium (1.6-2.3) mg/dL 01/22/21 01/22/21 01/22/21 Range/Units 06:30 07:10 07:10 PT 39.4 H (9.0-12.0) sec INR 4.1 H (<1.2) Carbon Dioxide 35 H (22-30) mmol/L BUN 71 H (9-20) mg/dL Creatinine 1.75 H (0.66-1.25) mg/dL Glucose 130 H (74-99) mg/dL POC Glucose (mg/dL) 141 H (75-99) mg/dL Magnesium 3.1 H (1.6-2.3) mg/dL Assessment and Plan Plan: 1 Acute on chronic hypoxic and hypercapnic respiratory failure secondary to COPD exacerbation. Her blood gases from 01/20/2021 showed acute on top of chronic hypercapnic respiratory failure with ongoing respiratory acidosis. 2 Acute kidney injury. The creatinine is stable for now 3 Acute hyperkalemia secondary to acute kidney injury, potassium level improved and the patient has chronic metabolic alkalosis secondary to hypercapnic respiratory failure 4 Paroxysmal atrial fibrillation. 5 Benign essential hypertension. 6 Degenerative joint disease. 7 Chronic diastolic congestive heart failure Plan: I basically agree with Dr. Liao's asthma. The patient has and states COPD with chronic hypoxic and hypercapnic respiratory failure. He is very slow to recover and the patient will likely have no complete recovery in his we'll continue to be quite symptomatically with ongoing shortness of breath. Based on that, hospice consultation/referral is very reasonable. I'm going to discontinue the IV Solu Medrol put the patient 40 mg of prednisone. Continue bronchodilators Continues on BiPAP 15/6 and 30% FiO2 overnight and on a when necessary basis We'll talk to the He is a DO NOT RESUSCITATE/DO NOT INTUBATE CODE STATUS HOME TODAY. Considering hospice
--- NOTE | 2021-01-22 10:50 | P.PN ---
Subjective Patient is seen in follow-up for acute kidney injury. Renal function fairly stable. Currently on 4 L nasal cannula. No chest pain or shortness of breath. No active complaints. Vital signs are stable. General: The patient appeared well nourished and normally developed. HEENT: On nasal cannula. LUNGS: Breath sounds decreased. HEART: Rate and Rhythm are regular. ABDOMEN: Abdominal exam reveals normal bowel sounds. EXTREMITITES: No edema. Objective - Vital Signs Vital signs: Vital Signs Temp 97.8 F 01/22/21 04:00 Pulse 80 01/22/21 09:21 Resp 17 01/22/21 04:00 BP 138/76 01/22/21 04:00 Pulse Ox 92 L 01/22/21 04:00 Intake & Output 01/21/21 01/22/21 01/22/21 18:59 06:59 18:59 Intake Total 720 Output Total 225 550 Balance 495 -550 Weight 92 kg Intake: Oral 720 Output: Urine 225 550 Stool 0 0 Other: Voiding Method Urinal Urinal # Voids 0 # Bowel Movements 0 - Labs CBC & Chem 7: 01/15/21 03:15 01/22/21 07:10 Labs: Abnormal Lab Results - Last 24 Hours (Table) 01/21/21 01/21/21 01/21/21 Range/Units 11:56 16:30 20:53 PT (9.0-12.0) sec INR (<1.2) Carbon Dioxide (22-30) mmol/L BUN (9-20) mg/dL Creatinine (0.66-1.25) mg/dL Glucose (74-99) mg/dL POC Glucose (mg/dL) 148 H 145 H 172 H (75-99) mg/dL Magnesium (1.6-2.3) mg/dL 01/22/21 01/22/21 01/22/21 Range/Units 06:30 07:10 07:10 PT 39.4 H (9.0-12.0) sec INR 4.1 H (<1.2) Carbon Dioxide 35 H (22-30) mmol/L BUN 71 H (9-20) mg/dL Creatinine 1.75 H (0.66-1.25) mg/dL Glucose 130 H (74-99) mg/dL POC Glucose (mg/dL) 141 H (75-99) mg/dL Magnesium 3.1 H (1.6-2.3) mg/dL Assessment and Plan Plan: Assessment: 1. Acute kidney injury secondary to ATN secondary to hemodynamic instability. Renal function stable. Creatinine 1.75. UA benign. No evidence of hydronephrosis. 2. Hyperkalemia secondary to acute kidney injury. Improved. 3. Acute on chronic hypercapnic respiratory failure. 4. Metabolic alkalosis. Mostly compensatory for the underlying respiratory acidosis and steroids. Better. Status post Diamox. 5. Chronic diastolic CHF. Currently compensated. 6. COPD exacerbation. 7. A. fib. Cardiology following. On Cardizem and metoprolol. Also on anticoagulation. Plan: Remains off fluids and diuretics. Avoid nephrotoxins. Encouraged oral intake. Continue to monitor renal function and urine output.
[2021-01-22 11:29] LABS: Glucose,Whole Blood 173 mg/dL (75-99)
--- NOTE | 2021-01-22 13:23 | P.DS ---
Providers Date of admission: 01/14/21 22:17 Expected date of discharge: 01/22/21 Attending physician: Jose Elias Pelayo Consults: 01/14/21 22:18 Consult Physician Urgent Consulting Provider: Abhinav Rowley Consult Reason/Comments: COPD Do you want consulting provider notified?: Yes 01/15/21 12:30 Consult Physician Routine Consulting Provider: Carlota Glez Consult Reason/Comments: zabrina Do you want consulting provider notified?: Yes 01/18/21 13:21 Consult Physician Routine Consulting Provider: Luciano Saldivar Consult Reason/Comments: elevated heart rate Do you want consulting provider notified?: Already Contacted 01/19/21 17:12 Consult Physician Urgent Consulting Provider: Carson Gonzalez Consult Reason/Comments: code stroke with hemiparesis Do you want consulting provider notified?: Yes [facility] care physician: [facility] Course: Presenting complaint Short of breath History of presenting complaint: Patient is a 70-year-old male, follows with PCP Dr. Cali with a PMH of advanced COPD, chronic hypoxic respiratory failure on 4 L nasal cannula oxygen continuously at home, systolic CHF, hypertension, A. fib on Coumadin, and hyperlipidemia presented to the emergency room with complaints of gradually worsening shortness of breath. The patient is accompanied by his at the bedside. Patient reports that over the past few weeks, he has noticed that he now gets winded with even minimal exertion such as walking to the bathroom. He reports that even after resting, it takes him a lot longer to get back to his baseline after the above-mentioned exertion. She sleeps in a reclined position which is unchanged over the past few weeks. He reports some chest tightness with these episodes which resolves with rest. Also reports that his cough is now productive with more yellow-green phlegm than usual. He also reports long- standing unchanged lower extremity pitting edema bilaterally. Denied fevers at home. Also denied abdominal pain, nausea, vomiting, diarrhea, dizziness. In the emergency room a chest x-ray revealed mild subsegmental atelectasis bilateral bases. EKG revealed normal sinus rhythm at [address]/T-wave changes noted as reviewed by me. Laboratory evaluation was remarkable for WBC count 14.5, hemoglobin 11.1, INR 3.2, sodium 133, potassium 6.7 (hemolyzed), chloride 90, CO2 35, BUN 71, creatinine 2.53, lactic acid 2.1, troponin 0.012, coronavirus PCR negative, and proBNP 542. She was given nebulizer treatments and is being admitted to the hospital for further management. Admitted with a diagnosis of COPD exacerbation . Placed on bronchodilators and steroids. Patient also had hypoxic encephalopathy. Blood gases showed CO2 retention. Swished over to BiPAP. Patient went into A. fib with rapid ventricular rate. Moved to the cardiology floor. Converted to sinus rhythm. Had a lengthy talk with patient's daughter the bedside. On January 20 Today: Oral intake fair. On 4 L of nasal cannula. Had a lengthy discussion with the patient and the . We will try to rehab and see how much patient improves. She does understand oral or prognosis is guarded. We also talked about hospice. It is no significant improvement or if patient goes further down to about rest status she is ready to: Proceed with hospice. This was further assessed by Dr. Quarles from pulmonary. Patient is predominantly do not h ospitalize if he deteriorates during rehab. Discussion and discharge planning more than 35 minutes Consultation: Dr. Quarles in [facility] from [facility] Neurology On examination: VITAL SIGNS: 98.4, 81, 16, 120/71, 91% on 4 L GENERAL APPEARANCE: Sitting upon a chair, nasal cannula, awake HEENT: Normal external appearance of nose and ear. Oral cavity normal EYES: Pupils equal. Conjunctiva normal. NECK: JVD not raised. Mass not palpable. RESPIRATORY: Respiratory effort increased. Diminished breath sounds, prolonged expiration, CARDIOVASCULAR: First and second sounds normal. Some edema. ABDOMEN: Soft. Liver and spleen not palpable. No tenderness. No mass palpable. PSYCHIATRY: AO 3 INVESTIGATIONS, reviewed in the clinical context: January 22: Potassium 4.4 creatinine 1.75 January 21: INR 3.2 potassium 4.6 creatinine 1.78 January 20: INR 2.1 ABG: PH 7.2 pCO2 92 pO2 93 potassium 4.9 creatinine 1.68 January 19: INR 1.9 potassium 5.9 creatinine 1.8 to January 18: Potassium 4.4 bicarbonate 44 creatinine 1.57 INR 1.9 troponin I 0.019 TSH 1.1 January 17: INR 2.0 potassium 4.5 creatinine 1.79 January 16: ABG-T8 7 0.24, pCO2 96, pO2 41. Potassium 5.5 creatinine 1.9 WBC 15.4 hemoglobin 11.3 platelets 324 potassium 5.7 bun 66 creatinine 2.31 Troponin I 2 negative LDL 53 2-D echocardiogram: Moderate concentric LVH. EF 55-60% right ventricle severely enlarged EKG tracing personally reviewed by me-normal sinus rhythm Chest x-ray film personally reviewed by me-right lung base atelectasis Plan: Acute COPD exacerbation, in a previous smoker, improving slowly -On IV Solu-Medrol, bronchodilators, inhaled steroids, changed over to oral prednisone CKD stage 3, likely from nephrosclerosis -Monitor BMP . Consult nephrology. DC Motrin. Renal diet. Current creatinine down to 1.75 Acute kidney injury possibly ATN -IV fluids. Improving. Creatinine from 2.5 , has come down Hyperkalemia, due to ZABRINA - Kayexalate. Repeat dose. Stop Zestril. Potassium was gone up again.- Corrected Alkalosis, may be due to over-diuresis and volume contraction -Monitor for now Leukocytosis, likely due to home oral prednisone use -Monitor for now Paroxysmal Afib, in sinus rhythm on presentation, with a rapid ventricular rate on January 18. Back into sinus rhythm -C/w Coumadin. Cardiology consulted. Started on Cardizem CD 120 mg daily. Coumadin discontinued. Switchover to eliquis Obesity BMI 39.9 -Weight loss measures and follow with PCP as outpatient Chronic cor pulmonale -Continue with diuretics Essential hypertension -Continue Toprol-XL. Hold off Zestril for now because of hyperkalemia Hyperlipidemia -Continue with Lipitor Primary osteoarthritis -Use analgesics when necessary Chronic hypoxic respiratory failure on home oxygen 4 L -Continue with oxygen Acute hypoxic metabolic encephalopathy hypoxic-slowly improving Acute hypoxic and hypercapnic respiratory failure, severe-slow to respond -Responding well to BiPAP initially. Nasal cannula was attempted. Back on BiPAP. Now on 4 L of nasal cannula CODE STATUS: DO NOT RESUSCITATE. Patient did made to proceed with hospice if things don't improve Disposition: [facility] Patient Condition at Discharge: Stable Plan - Discharge Summary Discharge Rx Participant: No New Discharge Prescriptions: New predniSONE [Deltasone] 40 mg PO DAILY tab Sodium Chloride 5% Ophth Soln [Nicki 128] 1 drops RIGHT EYE DAILY ml Formoterol Fumarate [Perforomist] 20 mcg INHALATION RT-BID nebu Apixaban [Eliquis] 5 mg PO BID #60 tab Diltiazem Cd [Cardizem CD] 120 mg PO DAILY cap.er.24h Budesonide [Pulmicort] 1 mg INHALATION RT-BID ml Continue Atorvastatin [Lipitor] 20 mg PO DAILY Latanoprost Ophth [Xalatan 0.005%] 1 drop BOTH EYES HS Ipratropium Nebulized [Atrovent Nebulized 0.2 MG/ML] 0.5 mg INHALATION RT-QID Ergocalciferol (Vitamin D2) [Drisdol (50,000 Iu)] 1,250 mcg PO SA Metoprolol Succinate [Toprol XL] 50 mg PO DAILY Nitroglycerin Sl Tabs [Nitrostat] 0.4 mg SUBLINGUAL Q5M PRN PRN Reason: Chest Pain Allopurinol [Zyloprim] 100 mg PO DAILY Discontinued lisinopriL [Zestril] 5 mg PO DAILY Warfarin [Coumadin] 7.5 mg PO WEFR@1999 Warfarin [Coumadin] 10 mg PO TUSA@1999 Albuterol Nebulized [Ventolin Nebulized] 2.5 mg INHALATION RT-QID Torsemide [Demadex] 100 mg PO DAILY predniSONE See Taper PO DAILY Amoxicillin/Potassium Clav [Augmentin 875-125 Tablet] 1 tab PO BID Ibuprofen [Motrin] 800 mg PO Q8H PRN PRN Reason: Pain Furosemide [Lasix] 40 mg PO DAILY Discharge Medication List Atorvastatin [Lipitor] 20 mg PO DAILY 05/02/17 [History] Latanoprost Ophth [Xalatan 0.005%] 1 drop BOTH EYES HS 01/11/19 [History] Ipratropium Nebulized [Atrovent Nebulized 0.2 MG/ML] 0.5 mg INHALATION RT-QID 10/02/19 [History] Allopurinol [Zyloprim] 100 mg PO DAILY 01/14/21 [History] Ergocalciferol (Vitamin D2) [Drisdol (50,000 Iu)] 1,250 mcg PO SA 01/14/21 [History] Metoprolol Succinate [Toprol XL] 50 mg PO DAILY 01/14/21 [History] Nitroglycerin Sl Tabs [Nitrostat] 0.4 mg SUBLINGUAL Q5M PRN 01/14/21 [History] Apixaban [Eliquis] 5 mg PO BID #60 tab 01/22/21 [Rx] Budesonide [Pulmicort] 1 mg INHALATION RT-BID ml 01/22/21 [Rx] Diltiazem Cd [Cardizem CD] 120 mg PO DAILY cap.er.24h 01/22/21 [Rx] Formoterol Fumarate [Perforomist] 20 mcg INHALATION RT-BID nebu 01/22/21 [Rx] Sodium Chloride 5% Ophth Soln [Nicki 128] 1 drops RIGHT EYE DAILY ml 01/22/21 [Rx] predniSONE [Deltasone] 40 mg PO DAILY tab 01/22/21 [Rx] Follow up Appointment(s)/Referral(s): Luciano Saldivar MD [STAFF PHYSICIAN] - 2 Weeks Filippo Campos MD [Primary Care Provider] - As Needed Activity/Diet/Wound Care/Special Instructions: 4 l/nasal cannula
[2021-01-22 16:29] LABS: Glucose,Whole Blood 165 mg/dL (75-99)
[2021-01-22] MEDS ORDERED: WARFARIN 0.5 MG TAB PO ONE (18:00)
[2021-01-22 20:37] LABS: Glucose,Whole Blood 181 mg/dL (75-99)
[2021-01-22] MEDS: LATANOPROST 0.005% OPHTH DROPS 2.5 ML BTL BOTH EYES SCH (20:44)
[2021-01-22 21:59] VITALS: BP 128/91; PULSE 72; RESP 18; TEMP 98.5
[2021-01-23] MEDS ORDERED: ATORVASTATIN 40 MG TAB PO SCH (09:00)
[2021-01-23] MEDS ORDERED: predniSONE 20 MG TAB PO SCH (09:00)
[2021-01-23] MEDS ORDERED: METOPROLOL SUCCINATE (ER) 50 MG TAB.ER.24H PO SCH (09:00)
== END 2021-01-22 21:50 | DRG 190 ==
LOC: EC 19:35 → 5NMEDONC 22:17 → 3SCARD 01-18 13:48
PROVIDERS: ADMIT Hospitalist; ATTEND Hospitalist
PROC: 5A09557 Assistance with Respiratory Ventilation, Greater than 96 Consecutive Hours, Continuous Positive Airway Pressure (ICD-10-PCS; principal; 2021-01-15)
PROC: 5A0935A Assistance with Respiratory Ventilation, Less than 24 Consecutive Hours, High Flow/Velocity Cannula (ICD-10-PCS; 2021-01-15)
DX: J44.1 Chronic obstructive pulmonary disease with (acute) exacerbation (principal); N17.0 Acute kidney failure with tubular necrosis; J96.21 Acute and chronic respiratory failure with hypoxia; J96.22 Acute and chronic respiratory failure with hypercapnia; G93.41 Metabolic encephalopathy; E87.4 Mixed disorder of acid-base balance; I13.0 Hypertensive heart and chronic kidney disease with heart failure and stage 1 through stage 4 chronic kidney disease, or unspecified chronic kidney disease; I48.3 Typical atrial flutter; H70.002 Acute mastoiditis without complications, left ear; I50.32 Chronic diastolic (congestive) heart failure; J98.11 Atelectasis; G93.1 Anoxic brain damage, not elsewhere classified; I48.0 Paroxysmal atrial fibrillation; I27.81 Cor pulmonale (chronic); E66.01 Morbid (severe) obesity due to excess calories; N18.30 Chronic kidney disease, stage 3 unspecified; E86.0 Dehydration; Z66 Do not resuscitate; Z20.822 Contact with and (suspected) exposure to COVID-19; I65.22 Occlusion and stenosis of left carotid artery; E87.5 Hyperkalemia; E78.5 Hyperlipidemia, unspecified; I87.8 Other specified disorders of veins; H26.9 Unspecified cataract; H40.9 Unspecified glaucoma; I07.1 Rheumatic tricuspid insufficiency; Z68.39 Body mass index [BMI] 39.0-39.9, adult; M19.91 Primary osteoarthritis, unspecified site; D72.829 Elevated white blood cell count, unspecified; T39.395A Adverse effect of other nonsteroidal anti-inflammatory drugs [NSAID], initial encounter; R53.1 Weakness; Z99.81 Dependence on supplemental oxygen; Z79.01 Long term (current) use of anticoagulants; Z79.899 Other long term (current) drug therapy; Z87.891 Personal history of nicotine dependence; Z87.01 Personal history of pneumonia (recurrent); Z98.41 Cataract extraction status, right eye; Z96.1 Presence of intraocular lens; Z98.890 Other specified postprocedural states; Z80.6 Family history of leukemia; Z82.49 Family history of ischemic heart disease and other diseases of the circulatory system
CPT/HCPCS: 36415; 36600; 70450; 71045; 71046; 76770; 80048; 80053; 80061; 81003; 82805; 83605; 83735; 83880; 84132; 84443; 84484; 85025; 85610; 85730; 87635; 93005; 93306; 93880; 94640; 94660; 94760; 99285

== ENCOUNTER 2021-01-23 17:42 | Emergency (ER) | payer MEDICARE, BC ==
[2021-01-23 17:50] VITALS: TEMP 97.6
[2021-01-23] MEDS ORDERED: IPRATROPIUM-ALBUTEROL 3 ML NEB INHALATION STA (18:27)
--- NOTE | 2021-01-23 18:53 | ED ---
General Adult HPI - General Chief complaint: Shortness of Breath Stated complaint: SOB Time Seen by Provider: 01/23/21 18:17 Source: patient, family, EMS, RN notes reviewed, old records reviewed Mode of arrival: EMS Limitations: no limitations - History of Present Illness Initial comments: 71-year-old male history of end-stage COPD on BiPAP continuously with the exception of meals presenting for evaluation. Patient had apparently not been on BiPAP throughout the day and was placed on 10 L of supplemental oxygen at the [facility] that he was recently discharged 2. He left the hospital yesterday area there had been an issue with the BiPAP machine and the patient had not been doing well according to family. Upon arrival they did retrieve their home BiPAP machine and bring this to the patient who had improved his respiratory distress. He is supposed to be on continuous BiPAP with the exception of meals but had not been on BiPAP throughout the majority of the day today. The time of arrival patient's symptoms are improved here been on BiPAP during transport and is continued on BiPAP in the emergency department. - Related Data Home Medications Medication Instructions Recorded Confirmed Atorvastatin [Lipitor] 20 mg PO DAILY 05/02/17 01/14/21 Latanoprost Ophth [Xalatan 0.005%] 1 drop BOTH EYES HS 01/11/19 01/14/21 Ipratropium Nebulized [Atrovent 0.5 mg INHALATION RT-QID 10/02/19 01/14/21 Nebulized 0.2 MG/ML] Allopurinol [Zyloprim] 100 mg PO DAILY 01/14/21 01/14/21 Ergocalciferol (Vitamin D2) 1,250 mcg PO SA 01/14/21 01/14/21 [Drisdol (50,000 Iu)] Metoprolol Succinate [Toprol XL] 50 mg PO DAILY 01/14/21 01/14/21 Nitroglycerin Sl Tabs [Nitrostat] 0.4 mg SUBLINGUAL Q5M PRN 01/14/21 01/14/21 Previous Rx's Medication Instructions Recorded Apixaban [Eliquis] 5 mg PO BID #60 tab 01/22/21 Budesonide [Pulmicort] 1 mg INHALATION RT-BID ml 01/22/21 Diltiazem Cd [Cardizem CD] 120 mg PO DAILY cap.er.24h 01/22/21 Formoterol Fumarate [Perforomist] 20 mcg INHALATION RT-BID nebu 01/22/21 Sodium Chloride 5% Ophth Soln 1 drops RIGHT EYE DAILY ml 01/22/21 [Nicki 128] predniSONE [Deltasone] 40 mg PO DAILY tab 01/22/21 Allergies Allergy/AdvReac Type Severity Reaction Status Date / Time No Known Allergies Allergy Verified 01/14/21 21:32 Review of Systems ROS Statement: Those systems with pertinent positive or pertinent negative responses have been documented in the HPI. ROS Other: All systems not noted in ROS Statement are negative. Past Medical History Past Medical History: Atrial Fibrillation, Atrial Flutter, Heart Failure, COPD, Eye Disorder, Hyperlipidemia, Hypertension, Osteoarthritis (OA), Pneumonia Additional Past Medical History / Comment(s): Home oxygen at 4L/NC ATC, previous exacerbation COPD and vented, chronic cough, bilateral eye glaucoma, pt states he believes he may have mild renal disease and possibly a small AK in the past. History of Any Multi-Drug Resistant Organisms: None Reported Past Surgical History: Ablation, Cardiac Ablation Additional Past Surgical History / Comment(s): Bronchoscopy/bx/lavage, R eye injury with surgery, R/ L eye cataract removals/lens implants, colonoscopy. Past Anesthesia/Blood Transfusion Reactions: No Reported Reaction Past Psychological History: No Psychological Hx Reported Smoking Status: Former smoker - Past Family History Brother(s) Family Medical History: Cancer Additional Family Medical History / Comment(s): CML Mother Family Medical History: No Reported History Additional Family Medical History / Comment(s): Mother was healthy and lived to be 90yrs. Father Family Medical History: Myocardial Infarction (AK) Additional Family Medical History / Comment(s): Father at 74 yrs from a AK General Exam Limitations: no limitations General appearance: alert, in no apparent distress Head exam: Present: atraumatic, normocephalic Eye exam: Present: normal appearance, PERRL ENT exam: Present: normal exam Neck exam: Present: normal inspection. Absent: tenderness, meningismus Respiratory exam: Present: respiratory distress, wheezes, decreased breath so unds. Absent: accessory muscle use Cardiovascular Exam: Present: regular rate, normal rhythm GI/Abdominal exam: Present: soft. Absent: distended, tenderness Extremities exam: Present: normal inspection, normal capillary refill. Absent: pedal edema Neurological exam: Present: alert. Absent: motor sensory deficit Psychiatric exam: Present: normal affect, normal mood Skin exam: Present: warm, dry, intact. Absent: cyanosis, diaphoretic Course Vital Signs 01/23/21 01/23/21 01/23/21 17:46 17:50 18:50 Temperature 97.6 F Pulse Rate 77 85 Respiratory 24 24 25 H Rate Blood Pressure 124/81 01/23/21 19:01 Temperature Pulse Rate 86 Respiratory 24 Rate Blood Pressure EKG Findings - EKG Comments: EKG Findings:: EKG: Normal sinus rhythm, low voltage, rate of 76, CO interval 1:30, QRS duration 68, QTC [address] segment elevation. Medical Decision Making - Medical Decision Making 71-year-old male presenting with an issue at the [facility] where the patient had not been on BiPAP apparently for prolonged period of time. Patient stable u pari arrival. Normal oxygenation. I did discuss case with Dr. Pelayo who is familiar with this patient. There had been discussion at the time of discharge about hospice and a do not hospitalize status for this patient while at rehab. Currently I do not think this patient is on hospice care. Patient's is at bedside, several discussions were had with both patient and his regarding admission versus home versus return to the [facility]. Ultimately it is decided that the would like to take the patient home. Patient does have a BiPAP machine at home. They will continue respiratory support with BiPAP. He will be transported by EMS home. - Lab Data Result diagrams: 01/23/21 18:27 01/23/21 18:27 Lab Results 01/23/21 01/23/21 01/23/21 Range/Units 18:27 18:27 18:27 WBC 24.6 H (3.8-10.6) k/uL RBC 3.52 L (4.30-5.90) m/uL Hgb 10.8 L (13.0-17.5) gm/dL Hct 34.8 L (39.0-53.0) % MCV 98.7 (80.0-100.0) fL MCH 30.7 (25.0-35.0) pg MCHC 31.1 (31.0-37.0) g/dL RDW 14.5 (11.5-15.5) % Plt Count 257 (150-450) k/uL MPV 7.6 Neutrophils % 93 % Lymphocytes % 1 % Monocytes % 5 % Eosinophils % 0 % Basophils % 0 % Neutrophils # 22.8 H (1.3-7.7) k/uL Lymphocytes # 0.4 L (1.0-4.8) k/uL Monocytes # 1.2 H (0-1.0) k/uL Eosinophils # 0.1 (0-0.7) k/uL Basophils # 0.1 (0-0.2) k/uL Hypochromasia Marked VBG pH 7.24 L (7.31-7.41) VBG pCO2 87 H* (37-51) mmHg VBG HCO3 36 H (24-28) mmol/L Sodium 137 (137-145) mmol/L Potassium 5.8 H (3.5-5.1) mmol/L Chloride 94 L (98-107) mmol/L Carbon Dioxide 37 H (22-30) mmol/L Anion Gap 6 mmol/L BUN 64 H (9-20) mg/dL Creatinine 1.78 H (0.66-1.25) mg/dL Est GFR (CKD-EPI)AfAm 44 (>60 ml/min/1.73 sqM) Est GFR (CKD-EPI)NonAf 38 (>60 ml/min/1.73 sqM) Glucose 180 H (74-99) mg/dL Calcium 8.8 (8.4-10.2) mg/dL Total Bilirubin 0.6 (0.2-1.3) mg/dL AST 32 (17-59) U/L ALT 49 (4-49) U/L Alkaline Phosphatase 83 (38-126) U/L Total Protein 5.8 L (6.3-8.2) g/dL Albumin 3.7 (3.5-5.0) g/dL Disposition Clinical Impression: COPD, severe Disposition: HOME SELF-CARE Condition: Fair Is patient prescribed a controlled substance at d/c from ED?: No Referrals: Bran Quarles MD [Primary Care Provider] - 1-2 days Time of Disposition: 19:37
[2021-01-23 19:00] LABS: VBG PH 7.24 (7.31-7.41)
[2021-01-23 19:01] LABS: Basophils # (A) 0.1 k/uL (0-0.2); Basophils % (A) 0 %; Eosinophils # (A) 0.1 k/uL (0-0.7); Eosinophils % (A) 0 %; HCT 34.8 % (39.0-53.0); HGB 10.8 gm/dL (13.0-17.5); Hypochromasia Marked; Lymphocytes # (A) 0.4 k/uL (1.0-4.8); Lymphocytes % (A) 1 %; MCH 30.7 pg (25.0-35.0); MCHC 31.1 g/dL (31.0-37.0); MCV 98.7 fL (80.0-100.0); Mean Platelet Volume 7.6; Monocytes # (A) 1.2 k/uL (0-1.0); Monocytes % (A) 5 %; Neutrophils # (A) 22.8 k/uL (1.3-7.7); Neutrophils % (A) 93 %; Platelet Count 257 k/uL (150-450); RBC 3.52 m/uL (4.30-5.90); RDW 14.5 % (11.5-15.5); WBC 24.6 k/uL (3.8-10.6)
[2021-01-23] MEDS: ALBUTEROL NEBULIZED 2.5 MG/3 ML INHALATION STA (19:12)
[2021-01-23 19:23] LABS: Albumin 3.7 g/dL (3.5-5.0); Calcium 8.8 mg/dL (8.4-10.2); Potassium 5.8 mmol/L (3.5-5.1); Total Bilirubin 0.6 mg/dL (0.2-1.3); Total Protein 5.8 g/dL (6.3-8.2)
[2021-01-23 20:09] VITALS: PULSE 75; RESP 18
[2021-01-23 22:03] VITALS: BP 122/91
== END 2021-01-23 22:10 | disposition home or self-care (01) ==
LOC: EC 17:42
DX: J44.9 Chronic obstructive pulmonary disease, unspecified (principal); E78.5 Hyperlipidemia, unspecified; I11.0 Hypertensive heart disease with heart failure; I50.9 Heart failure, unspecified; I48.91 Unspecified atrial fibrillation; M19.90 Unspecified osteoarthritis, unspecified site; Z79.01 Long term (current) use of anticoagulants; Z79.899 Other long term (current) drug therapy; Z87.891 Personal history of nicotine dependence
CPT/HCPCS: 36415; 80053; 82803; 85025; 93005; 94640; 94660; 99285